=== PATIENT | male | born 1940 | race Caucasian/White ===

== ENCOUNTER 2016-07-01 20:28 | Inpatient (IN) | payer OTHER ==
[~2016-07-01] VITALS: Ht 175.3 cm; Wt 84.1 kg
[~2016-07-01 20:28] MED LIST: ACET500C12 PO; ASPEC81 PO; CARV12.52 PO; CFT250 PO; CMD6 PO; DIGO0.1267 PO; FLUO40CA8 PO; FOLI1TAB7 PO; FURO40TA3 PO; INSU100I17 SC; INSU1INJ7 SC; LISI2.5T5 PO; MECL1TAB42 PO; MULTTAB58 PO; NTRGSL4 SL; OMEG10007 PO; OMEP20CA59 PO; PROC1TAB5 PO; RNXER500 PO; VTMD1000 PO
[2016-07-01] MEDS ORDERED: SODIUM CHLORIDE 0.9% 500ML 500 ML IV STA (20:36)
[2016-07-01] MEDS ORDERED: ONDANSETRON INJ 2 MG/ML 2 ML VIAL IV STA (20:36)
[2016-07-01] MEDS ORDERED: CHOL1TAB42 PO (21:16)
[2016-07-01] MEDS ORDERED: RANO500T PO (21:16)
[2016-07-01] MEDS ORDERED: OYST500T47 PO (21:16)
[2016-07-01] MEDS ORDERED: ZINC1TAB PO (21:16)
[2016-07-01] MEDS ORDERED: MELA3TAB12 PO (21:16)
[2016-07-01] MEDS ORDERED: WARF3TAB PO (21:16)
--- NOTE | 2016-07-01 21:18 | DIAGNOSTIC IMAGING REPORT ---
SINGLE VIEW CHEST CLINICAL HISTORY: Sepsis. FINDINGS: An AP, portable, upright chest radiograph is compared to study dated 05/26/2016. No prior studies are available for comparison at the time of dictation. The patient is status post midline sternotomy and cardiac valve surgery. The heart is enlarged and there is atherosclerotic calcification of the thoracic aorta. Mild central pulmonary basilar congestion is observed. There is no airspace consolidation or large pleural effusion. No pneumothorax is seen. The skeletal structures are osteopenic. Degenerative change is noted in the thoracic spine. There are healed right-sided rib fractures. Surgical clips and coils are noted in the upper abdomen. IMPRESSION: 1. Cardiomegaly with mild central pulmonary vascular congestion. 2. No airspace consolidation or pleural effusion is identified. Electronically signed by: Jairo Jennings M.D. 07/01/2016 9:16 PM Dictated Date/Time: 07/01/2016 9:14 PM
--- NOTE | 2016-07-01 21:21 | EMERGENCY ROOM VISIT NOTE ---
History Report prepared by Jourdan: Olga Cyr Under the Supervision of: Dr. Brendan Caldera D.O. 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 The patient's states that the patient had a urine culture yesterday following a blood transfusion for low hemoglobin. She states that it came back with ketones and it was cloudy and yellow and home health came to get another sample today using a catheter and states that the nurse was unable to place the catheter. She states that the patient was more confused today and grabbing at things. The patient sates that he is nauseous but does not have any abdominal pain or an increase in leg swelling. He states that he has fallen twice in the last two day but denies any head pain. The patient's states that the patient receives peritoneal dialysis and also suffers from CHF and Atrial fibrillation and had his prostate removed. She states that the patient had a CT scan done 1 month ago with no significant findings. 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 A total of 10 systems reviewed and were otherwise negative. Past Medical & Surgical Medical Problems: (1) Afib (2) Anemia (3) Aortic stenosis (4) CAD (coronary artery disease) (5) CHF (congestive heart failure) (6) Depression (7) Dialysis patient (8) DM2 (diabetes mellitus, type 2) (9) ESRD (end stage renal disease) (10) HLD (hyperlipidemia) (11) HTN (hypertension) (12) PAD (peripheral artery disease) (13) Prostate CA (14) Toe amputation status (15) Weakness Surgical Problems: (1) H/O colonoscopy (2) H/O heart artery stent (3) H/O radical prostatectomy (4) H/O splenectomy (5) History of cataract surgery (6) History of dental surgery (7) S/P AVR (8) S/P CABG x 5 (9) S/P MVR (mitral valve repair) Family History Diabetes mellitus BROTHER FH: CAD (coronary artery disease) MOTHER BROTHER SISTER FH: lung cancer FATHER Social History Smoking Status: Never Smoker Drug Use: none Marital Status: Occupation Status: retired, disabled Current/Historical Medications Scheduled Acetazolamide (Acetazolamide Er), 250 MG PO BID Aspirin (Aspirin EC Low Dose), 81 MG PO DAILY Carvedilol (Coreg), 12.5 MG PO BID Cholecalciferol (Vitamin D), 5,000 UNITS PO DAILY Citalopram Hydrobromide (Citalopram Hydrobromide), 2 TAB PO DAILY Digoxin (Lanoxin), 0.125 MG PO 3XWK Fish Oil ([place]-3), 1 CAP PO DAILY Folic Acid (Folvite), 1 MG PO DAILY Furosemide (Lasix), 80 MG PO DAILY Insulin Glargine (Lantus), 70 UNITS SC QAM Lisinopril (Lisinopril), 2.5 MG PO HS Melatonin-Pyridoxine (Melatonin), 1 TAB PO DAILY Multiple Vitamin (Multivitamin), 1 TAB PO DAILY Omeprazole (Prilosec), 20 MG PO DAILY Oyster Shell (Calcium), 500 MG PO DAILY Ranolazine (Ranexa), 1 TAB PO BID Warfarin Sodium (Coumadin), 3 MG PO DAILY Zinc Gluconate (Zinc), 50 MG PO BID Scheduled PRN Insulin Lispro (Human) (Humalog Pen), 5 UNITS SC DIRECTED PRN for IF BSG > 150 Meclizine Hcl (Meclizine Hcl), 1 TAB PO TID PRN for Dizziness or Vertigo Nitroglycerin (Nitrostat), 0.4 MG SL UD PRN for Chest Pain Prochlorperazine Maleate (Compazine), 1 TAB PO Q6 PRN for Nausea Allergies Coded Allergies: No Known Allergies (Verified , 03/30/16) Physical Exam Vital Signs Date Time Temp Pulse Resp B/P Pulse Ox O2 Delivery O2 Flow Rate FiO2 07/01/16 23:27 80 18 107/37 100 Room Air 07/01/16 22:47 86 16 90/46 99 Room Air 07/01/16 21:53 85 18 146/64 100 Room Air 07/01/16 21:34 98 Room Air 07/01/16 20:29 36.7 89 18 105/50 99 Room Air Physical Exam GENERAL: Patient is listless, responsive to verbal stimuli but seems to go to sleep quickly when not being stimulated. EYES: The conjunctivae are clear. The pupils are round and reactive. EARS, NOSE, MOUTH AND THROAT: The nose is without any evidence of any deformity. Mucous membranes are dry tongue is midline NECK: The neck is nontender and supple. RESPIRATORY: Lung sounds are diminished at both bases but no tachypnea or respiratory distress appreciated. CARDIOVASCULAR: Regular rate and rhythm noted there no murmurs rubs or gallops normal S1 normal S2 GASTROINTESTINAL: The abdomen is soft. Bowel sounds are present in all quadrants. Abdomen is nontender MUSCULOSKELETAL/EXTREMITIES: There is no evidence of gross deformity full range of motion is noted in the hips and shoulders SKIN: There is no obvious evidence of any rash. There are no petechiae, pallor or cyanosis noted. Trace pedal edema bilaterally with right greater than left. NEUROLOGIC: Patient is oriented to person, place and situation. Strength was diminished but symmetric. Medical Decision & Procedures ER Provider Diagnostic Interpretation: X-ray results as stated below per interpretation by me and the radiologist. SINGLE VIEW CHEST CLINICAL HISTORY: Sepsis. FINDINGS: An AP, portable, upright chest radiograph is compared to study dated 05/26/2016. No prior studies are available for comparison at the time of dictation. The patient is status post midline sternotomy and cardiac valve surgery. The heart is enlarged and there is atherosclerotic calcification of the thoracic aorta. Mild central pulmonary basilar congestion is observed. There is no airspace consolidation or large pleural effusion. No pneumothorax is seen. The skeletal structures are osteopenic. Degenerative change is noted in the thoracic spine. There are healed right-sided rib fractures. Surgical clips and coils are noted in the upper abdomen. IMPRESSION: 1. Cardiomegaly with mild central pulmonary vascular congestion. 2. No airspace consolidation or pleural effusion is identified. Electronically signed by: Jairo Jennings M.D. 07/01/2016 9:16 PM Dictated Date/Time: 07/01/2016 9:[address] results as stated below per my review and radiologist interpretation. CT SCAN OF THE BRAIN WITHOUT IV CONTRAST CLINICAL HISTORY: Change in mental status COMPARISON STUDY: CT of the brain dated 05/26/2016. TECHNIQUE: Unenhanced axial CT scan of the brain is performed from the vertex to the skull base. CT DOSE: 537.48 mGy.cm FINDINGS: Brain parenchyma: There are age-related involutional changes noting mild to moderate patchy subcortical and periventricular microangiopathic change. There is no hemorrhage, mass effect, or evidence of acute territorial ischemia by CT criteria. Thompson-white matter is preserved. No extra-axial fluid collection is seen. Ventricles, sulci, cisterns: Prominent secondary to involutional change. Intracranial vasculature: There is atherosclerotic calcification of the cavernous carotid and vertebral arteries. Calvarium: Unremarkable. Sinuses and mastoids: The visualized paranasal sinuses are clear. There are postoperative changes from previous right mastoid surgery. The mastoid air cells are well pneumatized. Orbits: The bony orbits are grossly intact. There are bilateral ocular lens implants. IMPRESSION: There is no hemorrhage, mass effect, or evidence of acute territorial ischemia by CT criteria, and there has been no significant change from 05/26/2016. Electronically signed by: Jairo Jennings M.D. 07/01/2016 9:54 PM Dictated Date/Time: 07/01/2016 9:52 PM Laboratory Results 07/01/16 21:21 Red Blood Count 2.21, Mean Corpuscular Volume 102.3, Mean Corpuscular Hemoglobin 32.6, Mean Corpuscular Hemoglobin Concent 31.9, Mean Platelet Volume 9.5, Neutrophils (%) (Auto) 68.5, Lymphocytes (%) (Auto) 18.3, Monocytes (%) ( Auto) 7.8, Eosinophils (%) (Auto) 4.0, Basophils (%) (Auto) 0.5, Neutrophils # ( Auto) 8.66, Lymphocytes # (Auto) 2.31, Monocytes # (Auto) 0.98, Eosinophils # ( Auto) 0.50, Basophils # (Auto) 0.06 07/01/16 21:21 Test 07/01/16 21:20 07/01/16 21:21 07/01/16 22:30 Bedside Lactic Acid Venous 0.96 mmol/L (0.90-1.70) White Blood Count 12.62 K/uL (4.8-10.8) Red Blood Count 2.21 M/uL (4.7-6.1) Hemoglobin 7.2 g/dL (14.0-18.0) Hematocrit 22.6 % (42-52) Mean Corpuscular Volume 102.3 fL (80-100) Mean Corpuscular Hemoglobin 32.6 pg (25-34) Mean Corpuscular Hemoglobin Concent 31.9 g/dl (32-36) Platelet Count 215 K/uL (130-400) Mean Platelet Volume 9.5 fL (7.4-10.4) Neutrophils (%) (Auto) 68.5 % Lymphocytes (%) (Auto) 18.3 % Monocytes (%) (Auto) 7.8 % Eosinophils (%) (Auto) 4.0 % Basophils (%) (Auto) 0.5 % Neutrophils # (Auto) 8.66 K/uL (1.4-6.5) Lymphocytes # (Auto) 2.31 K/uL (1.2-3.4) Monocytes # (Auto) 0.98 K/uL (0.11-0.59) Eosinophils # (Auto) 0.50 K/uL (0-0.5) Basophils # (Auto) 0.06 K/uL (0-0.2) RDW Standard Deviation 57.3 fL (36.4-46.3) RDW Coefficient of Variation 15.2 % (11.5-14.5) Immature Granulocyte % (Auto) 0.9 % Immature Granulocyte # (Auto) 0.11 K/uL (0.00-0.02) Macrocytosis PRESENT Erythrocyte Sedimentation Rate 26 mm/hr (0-14) Prothrombin Time 25.4 SECONDS (9.0-12.0) Prothromb Time International Ratio 2.3 (0.9-1.1) Activated Partial Thromboplast Time 39.7 SECONDS (21.0-31.0) Partial Thromboplastin Ratio 1.5 Venous Blood pH 7.39 (7.36-7.41) Venous Blood Partial Pressure CO2 47 mmHg (38.0-50.0) Venous Blood Partial Pressure O2 41 mmHg Venous Blood HCO3 28 mmol/L Venous Blood Oxygen Saturation 72.8 % Venous Blood Base Excess 2.4 mmol/L Anion Gap 12.0 mmol/L (3-11) Est Creatinine Clear Calc Drug Dose 11.2 ml/min Estimated GFR () 10.1 Estimated GFR (Non- 8.7 BUN/Creatinine Ratio 12.6 (10-20) Calcium Level 7.5 mg/dl (8.5-10.1) Phosphorus Level 4.9 mg/dl (2.5-4.9) Magnesium Level 1.6 mg/dl (1.8-2.4) Total Bilirubin 0.2 mg/dl (0.2-1) Aspartate Amino Transf (AST/SGOT) 17 U/L (15-37) Alanine Aminotransferase (ALT/SGPT) 8 U/L (12-78) Alkaline Phosphatase 95 U/L (45-117) Ammonia 24.0 umol/L (11-32) Total Creatine Kinase 43 U/L (39-308) Creatine Kinase MB 2.1 ng/ml (0.5-3.6) Creatine Kinase MB Ratio 4.9 (0-3.0) Troponin I 0.049 ng/ml (0-0.045) C-Reactive Protein 1.20 mg/dl (0-0.29) Pro-B-Type Natriuretic Peptide > 85330 pg/ml (0-1800) Total Protein 6.6 gm/dl (6.4-8.2) Albumin 2.4 gm/dl (3.4-5.0) Globulin 4.2 gm/dl (2.5-4.0) Albumin/Globulin Ratio 0.6 (0.9-2) Lipase 90 U/L (73-393) Digoxin Level 2.0 ng/ml (0.8-2.0) Urine Color DK YELLOW Urine Appearance TURBID (CLEAR) Urine pH 6.0 (4.5-7.5) Urine Specific [place] 1.016 (1.000-1.030) Urine Protein 1+ (NEG) Urine Glucose (UA) NEG (NEG) Urine Ketones TRACE (NEG) Urine Occult Blood 2+ (NEG) Urine Nitrite NEG (NEG) Urine Bilirubin NEG (NEG) Urine Urobilinogen NEG (NEG) Urine Leukocyte Esterase LARGE (NEG) Urine WBC (Auto) >30 /hpf (0-5) Urine RBC (Auto) >30 /hpf (0-4) Urine Hyaline Casts (Auto) 1-5 /lpf (0-5) Urine Epithelial Cells (Auto) >30 /lpf (0-5) Urine Bacteria (Auto) 4+ (NEG) Laboratory results per my review. Medications Administered Medications (Trade) Dose Ordered Sig/Andrei Route Start Time Stop Time Status Last Admin Dose Admin Sodium Chloride (Nss 500ml) 500 ml @ 999 mls/hr Q31M STAT IV 07/01/16 20:36 07/01/16 21:06 DC 07/01/16 21:39 999 MLS/HR Ondansetron HCl (Zofran Inj) 4 mg NOW STAT IV 07/01/16 20:36 07/01/16 20:39 DC 07/01/16 21:39 4 MG Ceftriaxone Sodium (Rocephin Inj) 1 gm NOW STAT IV 07/01/16 23:17 07/01/16 23:18 DC 07/01/16 23:26 1 GM ECG Indication: altered mental status, weakness Rate (beats per minute): 93 Rhythm: sinus rhythm Findings: 1st degree AV block, RBBB, other (no PVC) Comparison ECG Date: May 27, 2016 Change: no significant change ED Course 2033: The patient was evaluated in room A10. A complete history and physical examination were performed. 2035: Ordered Zofran Inj 4 mg IV, NSS 500 ml @ 999 mls/hr IV 2316: Ordered Rocephin Inj 1 gm IV. 5:I discussed the case with Dr. Colby Yates. He agreed to evaluate the patient for further management and care. Medical Decision Differential diagnosis: Etiologies such as metabolic, infection, hypo/hyperglycemia, electrolyte abnormalities, cardiac sources, intracerebral event, toxicologic, neurologic, as well as others were entertained. Nursing notes reviewed. Additional history is obtained from the patient's significant other. The patient is a 76-year-old male who presented to the emergency department for an evaluation of generalized weakness. The patient had hypotension on arrival to the emergency department. He has a history of renal failure and is treated with peritoneal dialysis. The patient was reevaluated multiple times. He was also treated with IV antibiotics for presumed urinary tract infection noted on urinalysis. I reviewed the patient's previous urine cultures. I discussed the patient's laboratory and radiographic studies with him and his family members. Given the degree of symptoms the patient was having I also discussed his case with the on-call [facility] mgist group. They have agreed to evaluate the patient in the emergency department for further management and disposition. Consults Time Called: [phone] Consulting Physician: Dr. Colby Yates Returned Call: [phone] I discussed the case with Dr. Colby Yates. He agreed to evaluate the patient for further management and care. Impression Primary Impression: Weakness Additional Impressions: UTI (urinary tract infection) Chronic renal failure Anemia Scribe Attestation The scribe's documentation has been prepared under my direction and personally reviewed by me in its entirety. I confirm that the note above accurately reflects all work, treatment, procedures, and medical decision making performed by me. Departure Information Dispostion Being Evaluated By Hospitalist Referrals Letha Obregon M.D. (PCP) Problem Qualifiers
[2016-07-01 21:33] LABS: HEMATOCRIT 22.6 % (42-52); MEAN CELL VOLUME 102.3 fL (80-100); MEAN CORPUSCULAR HEMOGLOBIN 32.6 pg (25-34); MEAN CORPUSCULAR HGB CONC 31.9 g/dl (32-36); MEAN PLATELET VOLUME 9.5 fL (7.4-10.4); PLATELET COUNT 215 K/uL (130-400); RED BLOOD COUNT 2.21 M/uL (4.7-6.1); WHITE BLOOD COUNT 12.62 K/uL (4.8-10.8)
[2016-07-01 21:37] LABS: VEN BLD GAS O2 SATURATION 72.8 %; VEN BLOOD GAS BASE EXCESS 2.4 mmol/L
[2016-07-01 21:44] LABS: INR 2.3 (0.9-1.1); PARTIAL THROMBOPLASTIN RATIO 1.5; PROTHROMBIN TIME (PATIENT) 25.4 SECONDS (9.0-12.0)
--- NOTE | 2016-07-01 21:56 | DIAGNOSTIC IMAGING REPORT ---
CT SCAN OF THE BRAIN WITHOUT IV CONTRAST CLINICAL HISTORY: Change in mental status COMPARISON STUDY: CT of the brain dated 05/26/2016. TECHNIQUE: Unenhanced axial CT scan of the brain is performed from the vertex to the skull base. CT DOSE: 537.48 mGy.cm FINDINGS: Brain parenchyma: There are age-related involutional changes noting mild to moderate patchy subcortical and periventricular microangiopathic change. There is no hemorrhage, mass effect, or evidence of acute territorial ischemia by CT criteria. Thompson-white matter is preserved. No extra-axial fluid collection is seen. Ventricles, sulci, cisterns: Prominent secondary to involutional change. Intracranial vasculature: There is atherosclerotic calcification of the cavernous carotid and vertebral arteries. Calvarium: Unremarkable. Sinuses and mastoids: The visualized paranasal sinuses are clear. There are postoperative changes from previous right mastoid surgery. The mastoid air cells are well pneumatized. Orbits: The bony orbits are grossly intact. There are bilateral ocular lens implants. IMPRESSION: There is no hemorrhage, mass effect, or evidence of acute territorial ischemia by CT criteria, and there has been no significant change from 05/26/2016. Electronically signed by: Jairo Jennings M.D. 07/01/2016 9:54 PM Dictated Date/Time: 07/01/2016 9:52 PM
[2016-07-01 22:08] LABS: BASO % 0.5 %; BASO ABS # 0.06 K/uL (0-0.2); COMPLETE YES; IG% 0.9 %; LYMPH % 18.3 %; LYMPH ABS # 2.31 K/uL (1.2-3.4); MONO % 7.8 %; NEUT % 68.5 %
[2016-07-01 22:10] LABS: ALB/GLOB RATIO 0.6 (0.9-2); ALKALINE PHOSPHATASE 95 U/L (45-117); ALT/SGPT 8 U/L (12-78); AST/SGOT 17 U/L (15-37); BLOOD UREA NITROGEN 73 mg/dl (7-18); BUN/CREATININE RATIO 12.6 (10-20); CALCIUM 7.5 mg/dl (8.5-10.1); CARBON DIOXIDE 26 mmol/L (21-32); CHLORIDE 102 mmol/L (98-107); CKMB/CK RATIO 4.9 (0-3.0); GLUCOSE 67 mg/dl (70-99); MAGNESIUM 1.6 mg/dl (1.8-2.4); PHOSPHORUS 4.9 mg/dl (2.5-4.9); POTASSIUM 3.7 mmol/L (3.5-5.1); SODIUM 140 mmol/L (136-145)
[2016-07-01 23:07] LABS: URINE APPEARANCE TURBID (CLEAR); URINE BILIRUBIN NEG (NEG); URINE COLOR DK YELLOW; URINE EPITHELIAL CELL AUTO >30 /lpf (0-5); URINE NITRITE NEG (NEG); URINE SPECIFIC GRAVITY 1.016 (1.000-1.030); UROBILINOGEN NEG (NEG); ZZURINE CULT IF INDIC CATH YES
[2016-07-01 23:09] LABS: MANUAL MICROSCOPIC REQUIRED? NO; REVIEW REQ? NO
[2016-07-01] MEDS ORDERED: CEFTRIAXONE SOD INJ 1 GM ADDVIAL IV STA (23:17)
[2016-07-01] MEDS ORDERED: CITA10TA4 PO (23:51)
[2016-07-02] VITALS (14 sets, daily range): BP systolic 106–159; BP diastolic 54–80; PULSE 57–87; TEMP 36.3–36.8; O2SAT 96–100; Ht 175.3 cm; Wt 84.1 kg
[2016-07-02] MEDS ORDERED: ACETAMINOPHEN 325 MG TAB PO PRN (00:45)
[2016-07-02] MEDS ORDERED: ONDANSETRON INJ 2 MG/ML 2 ML VIAL IV PRN (00:45)
[2016-07-02] MEDS ORDERED: MECLIZINE HCL 12.5 MG TAB PO PRN (01:00)
[2016-07-02] MEDS ORDERED: INSULIN ASPART 100 UNITS/ML 3 ML PEN SC PRN (01:00)
[2016-07-02] MEDS ORDERED: PROCHLORPERAZINE MALEATE 10 MG TAB PO PRN (01:00)
[2016-07-02] MEDS ORDERED: NITROGLYCERIN 0.4 MG SL PER TAB CHARGE SL PRN (01:00)
[2016-07-02] MEDS ORDERED: MAGNESIUM CHLORIDE 64MG DELAYED REL TAB PO STA (02:09)
--- NOTE | 2016-07-02 04:19 | HISTORY & PHYSICAL EXAMINATION ---
DATE OF ADMISSION: 07/02/2016 PRIMARY CARE PHYSICIAN: Dr. Obregon. CAMPAIGN ANALYST: Dr. Chowdhury. CHIEF COMPLAINT: Change in mental status with progressive weakness and fall. HISTORY OF PRESENT COMPLAINT: He is a 76-year-old male with significant complicated past medical history including CAD s/p CABG in 2000, status post mitral and aortic valve replacement on anticoagulation, systolic heart failure, type 2 diabetes, chronic kidney disease on peritoneal dialysis, Anxiety disorder, atrial fibrillation, chronic back pain, hyperlipidemia, hypertension and vitamin D deficiency, apparently has been complaining of weakness and lethargy for the last few days. He has been falling at home about 1-2 times a day without significant injury. He was evaluated by his primary care physician on of this month and his present medicine for depression was increased. He was admitted to [facility] from May 26 and May 29 for weakness and anemia. He received blood transfusion but at that time, he was advised to go to rehab, but he refused to go. Today, he denies any chest pain, any palpitations, any nausea or vomiting. He does not have any abdominal pain, but he mentions to have producing less urine with dysuria at times. No fever, chills or rigors and he has been getting progressive weakness with recurrent falls, but no significant injuries issues. 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 PAST SURGICAL HISTORY: Significant for AV shunt in the late 2013, AV shunt in the right in 2014, alveoloplasty in October of 2008, amputation of the toes in 2010, status post percutaneous angioplasty right side that was done in August of 2014 x3, aortic valve replacement October of 2008, radical prostatectomy in 2001, cataract surgery 2012, mitral valve replacement in 2008. FAMILY HISTORY: Father did have lung cancer. Brother has diabetes. Mother had heart disorder. SOCIAL HISTORY: He is . He lives with his . He does not drink and does not smoke and he has been reasonably ambulant. ALLERGIES: NKDA. MEDICATIONS: He has been on fish oil 1 capsule daily, acetazolamide 500 mg 2 mg tablet b.i.d., aspirin 81 mg daily, Coreg 12.5 mg b.i.d., vitamin D 5000 units daily, Celexa 10 mg tablets 2 tablets daily, digoxin 0.125 three times a week, folic acid 1 mg daily, furosemide 40 mg tablets 2 tablets daily, insulin Lantus 70 units in the morning, insulin lispro as directed, lisinopril 2.5 mg at night, meclizine 25 mg t.i.d. p.r.n., melatonin 1 tablet daily 1 mg, multivitamin 1 tablet daily, Nitrostat 0.4 mg as directed, Prilosec 20 mg daily, calcium 500 mg daily, Compazine 10 mg 1 tablet p.o. q. 6 hourly p.r.n., Ranexa 500 mg tablet b.i.d., warfarin sodium 3 mg daily, and zinc 50 mg b.i.d. REVIEW OF SYSTEMS: Other system review is unremarkable. PHYSICAL EXAMINATION: GENERAL: On examination in the Emergency Room, he was not having any acute distress. His confusion is almost resolved. VITAL SIGNS: Temperature 36.7, pulse was 79, blood pressure 107/37, saturation 100% on room air. HEENT: Unremarkable. NECK: Supple. No JVD, no bruit. CHEST: Decreased breath sounds with occasional crackles at the bases. HEART: S1, S2 regular with 2/6 systolic murmur over aortic area and precordium. ABDOMEN: Soft, benign, nontender, no organomegaly. Bowel sounds present. EXTREMITIES: Negative for any edema. He does have the ulcers on the right heel that has been healing, and he goes to wound clinic for that. CENTRAL NERVOUS SYSTEM: He is alert, awake, and generally weak, but no focal neuro deficit appreciated. LABORATORY DATA: Noted today, white count is 12.62, H\T\H 7.2/22.6, platelet was 215, ESR 26. Blood gas 7.29, pCO2 of 47, pO2 of 41, saturation was 72. Sodium 140, potassium 3.7, chloride 102, carbon dioxide 26, BUN 73, creatinine 5.80. Random glucose 67. Lactic acid 0.96. Magnesium 1.6, calcium 7.5. LFTs unremarkable. CK-MB unremarkable. Troponin 0.019. BNP was more than 35,000. INR 2.3. PTT ratio 1.5. Digoxin level 2.0. UA examination showed white count more than 30, rbc's more than [address] bacteria 4+. CT of the head; no hemorrhage, mass effect, or evidence of acute territorial ischemia. Chest x-ray: Cardiomegaly with mild central pulmonary venous congestion, no consolidation. EKG was in sinus rhythm with first degree AV block, right bundle branch block with associated ST-T wave changes. IMPRESSION AND PLAN: 1. Change in mental status likely secondary to infection due to UTI. His Urine Culture on 06/27/16 grew multiple organism at his PCP's office - Started on Ceftriaxone and will continue,Bloos and Urine cultures sent. The patient will be admitted to telemetry unit and monitored in the unit. Mental status since has been improving. No evidence of any stroke in the CAT scan. He was noted to have hypoxia on admission, low blood sugar could be causing change in mental status too. 2.Anemia -HB 7.2 likely due to CKD.Has had 2 units of Blood transfusion in mid May 2016. Type and Hold 2 units and may need transfusion again if HB drops below 7.0. 3. Probable urinary tract infection. Urinalysis shows infection. Recent urine culture that was done in the doctor's office did show multiple dimitry. We will send urine for culture, and the patient is started on intravenous ceftriaxone, continue with that. 4. Status post aortic and mitral valve replacement. The patient has been on Coumadin, and no acute chest pain at this time. We will cycle cardiac enzymes to make sure there is no acute coronary syndrome and continue current medication. 5. End-stage renal disease on hemodialysis. The patient has some congestion. We will continue with peritoneal dialysis and ask for nephrology evaluation. 6.Frequent falls at home 'PT/OT evaluation.May need placement 7. Gastrointestinal prophylaxis, Protonix. 8. Hypertension and hyperlipidemia. Continue current medications. 9. Deep venous thrombosis prophylaxis with Coumadin. 10. Code status. Discussed with the and the patient. He will be full code. In my clinical judgment, the beneficiary meets criteria as per CMS for 2 midnight stay in the hospital. HEMANT
[2016-07-02] MEDS ORDERED: HEPARIN SOD 5000 UNIT/0.5 ML CARP SQ SCH (06:00)
[2016-07-02 06:31] LABS: HEMATOCRIT 22.3 % (42-52); MEAN CELL VOLUME 104.7 fL (80-100); MEAN CORPUSCULAR HEMOGLOBIN 32.9 pg (25-34); MEAN CORPUSCULAR HGB CONC 31.4 g/dl (32-36); MEAN PLATELET VOLUME 10.1 fL (7.4-10.4); PLATELET COUNT 205 K/uL (130-400); RED BLOOD COUNT 2.13 M/uL (4.7-6.1); WHITE BLOOD COUNT 11.65 K/uL (4.8-10.8)
[2016-07-02 06:47] LABS: INR 2.2 (0.9-1.1); PROTHROMBIN TIME (PATIENT) 24.2 SECONDS (9.0-12.0)
[2016-07-02] MEDS ORDERED: FUROSEMIDE INJ 40 MG in SYRINGE 0 ML IV SCH (07:00)
[2016-07-02] MEDS: RANOLAZINE 500 MG ER TAB PO SCH ×2 (07:41→21:28)
[2016-07-02] MEDS: ASPIRIN 81 MG ECTAB PO SCH (07:41)
[2016-07-02] MEDS: ZINC SULFATE 220 MG CAP PO SCH ×2 (07:42→21:28)
[2016-07-02] MEDS: MULTIVITAMIN TAB PO SCH (07:42)
[2016-07-02] MEDS: PANTOprazole SOD 40 MG TAB PO SCH (07:43)
[2016-07-02] MEDS: CALCIUM CARBONATE 1250MG TAB PO SCH (07:43)
[2016-07-02] MEDS: CHOLECALCIFEROL 1000 INTER.UNIT TAB PO SCH (07:43)
[2016-07-02] MEDS: CARVEDILOL 12.5 MG TAB PO SCH ×2 (07:43→21:25)
[2016-07-02] MEDS: CITALOPRAM 20 MG TAB PO SCH (07:44)
[2016-07-02 07:53] LABS: BUN/CREATININE RATIO 12.5 (10-20); CALCIUM 7.5 mg/dl (8.5-10.1); CKMB/CK RATIO 4.9 (0-3.0); CREATININE 5.9 mg/dl (0.60-1.40); MAGNESIUM 1.7 mg/dl (1.8-2.4); POTASSIUM 3.4 mmol/L (3.5-5.1)
[2016-07-02] MEDS ORDERED: INSULIN GLARGINE SC SCH ×2 (09:00→21:00)
[2016-07-02] MEDS ORDERED: AcetaZOLAMIDE 500 MG CAPCR PO SCH (09:00)
[2016-07-02] MEDS ORDERED: NON-FORMULARY MEDICATION (Melatonin-Pyridoxine (Melatonin) 1 TAB) PO SCH (09:00)
[2016-07-02] MEDS: AcetaZOLAMIDE 250 MG TAB PO SCH ×2 (09:04→22:04)
[2016-07-02] MEDS: FUROSEMIDE 40 MG TAB PO SCH (09:04)
[2016-07-02] MEDS ORDERED: POTASSIUM CHLORIDE 20 MEQ TABCR PO ONE (09:15)
[2016-07-02] MEDS ORDERED: PHARMACY GLYCEMIC MGMT CONSULT SCH (09:24)
[2016-07-02] MEDS ORDERED: ACET-1325 PO (09:32)
[2016-07-02] MEDS: MAGNESIUM SULFATE 1GM / D5W 1 GM in PREMIXED IN D5W 100 ML IV SCH ×2 (10:52→11:55)
--- NOTE | 2016-07-02 11:01 | NEPHROLOGY CONSULTATION ---
DATE OF CONSULTATION: 07/02/2016 DATE OF CONSULTATION: 07/02/2016. ATTENDING OF RECORD: Dr. Bowman. REASON FOR CONSULTATION: ESRD. HISTORY OF PRESENT ILLNESS: This is a 76-year-old male with significant history of mitral and aortic valve replacements, diabetes, end-stage renal disease on peritoneal dialysis, coronary artery disease status post CABG, AFib, who has had chronic depression for the past year as well as worsening falls dealing with family stressors, children are not well. The patient was having nausea, vomiting, fevers, chills several days ago, but refused to go to the Emergency Room and then started to get more confused with worsening falls and was admitted tentatively treating for urinary tract infection. The patient was also significantly anemic and hemoglobin is down to 7 this morning, currently getting 2 units of packed red blood cells. The patient though is starting to feel better. Appetite is improving and patient hoping to get better soon. REVIEW OF SYSTEMS: Positive fevers or chills at home. No fevers in the hospital. HEAD: No headaches. EYES: No blurry vision. NECK: Supple. PULMONARY: No significant shortness of breath or cough. GASTROINTESTINAL: Did have nausea, vomiting which has improved. GENERAL: Positive anorexia with appetite starting to improve. GENITOURINARY: Does still urinate minimally. PSYCHIATRIC: The patient is depressed but trying to stay positive. SKIN: No significant itching or rash. All other review of systems otherwise negative. CURRENT MEDICATIONS: Digoxin 0.125 Monday, Monday, Monday, ceftriaxone daily, lisinopril 2.5 mg at night, Coumadin 3 mg daily, magnesium 1 gram today, aspirin 81 mg daily, Coreg 12.5 p.o. b.i.d., folic acid 1 mg daily, Lasix 80 mg daily, multivitamin daily, calcium carbonate 1250 p.o. daily, vitamin D 5000 units daily, Celexa 20 mg daily, Protonix 40 mg daily, Ranexa 500 mg p.o. b.i.d., zinc 220 mg p.o. b.i.d., Diamox 250 mg p.o. b.i.d., Lasix 40 mg IV today. PAST MEDICAL HISTORY: Coronary artery disease status post CABG, mitral and aortic valve replacements on anticoagulation, type 2 diabetes, end-stage renal disease on peritoneal dialysis, anxiety/depression, atrial fibrillation, chronic back pain, hyperlipidemia, hypertension, history of prostate cancer and nodule on lung where the patient does not want aggressive workup done. PAST SURGICAL HISTORY: AV shunt, PD catheter, radical prostatectomy, mitral and artic valve replacements, amputation of toe, cataract surgery, aortic and mitral valve replacements. FAMILY HISTORY: Significant for father with lung cancer, brother with diabetes. SOCIAL HISTORY: , lives at home with . No alcohol. No drugs, no tobacco. PHYSICAL EXAMINATION: VITAL SIGNS: Temperature 36.7, pulse 76, respiratory rate 16, blood pressure 110/91, satting 98% on room air. GENERAL: Awake, alert, oriented x3, appears much more alert compared to admission EYES: No scleral icterus. HEAD, EYES, EARS, NOSE, AND THROAT: Moist mucous membranes. NECK: Supple. PULMONARY: Decreased breath sounds at the bases. CARDIAC: Regular rate and rhythm with a 2/6 systolic murmur. ABDOMEN: Bowel sounds positive, soft, nontender, positive PD catheter. EXTREMITIES: No significant clubbing, cyanosis or edema. NEUROLOGICALLY: Nonfocal. DERMATOLOGIC: Does have an ulcer on his heel that has been healing up well. LABORATORY DATA: White count is 11, H\T\H 7 and 22, platelet count is 205. Sodium is 141, potassium is 3.4, chloride is 101, bicarb is 26, BUN 74, creatinine is 5.9, glucose 62, calcium 7.5, mag is 1.7. CK is 41. Troponin 0.049 and trending down. INR is 2.2. Digoxin is 2. UA is concerning for urinary tract infection. Urine and blood cultures are pending. Chest x-ray shows cardiomegaly with mild vascular congestion. IMPRESSION AND PLAN: 1. End-stage renal disease: The patient does well on peritoneal dialysis, currently appears to have a urinary tract infection with worsening anemia. Will discuss with the dialysis nurse, but would like to temporarily switch to hemodialysis while here in the hospital, has a good working fistula. Electrolytes and volume status are stable so no indication for dialysis at this time. 2. Anemia of renal failure. Hemoglobin levels are 7 getting 2 units of blood today. Will plan on Procrit injection with the next dialysis treatment. Appreciate consultation. HEMANT
[2016-07-02] MEDS: INSULIN ASPART 100 UNITS/ML 3 ML PEN SC SCH ×3 (11:30→21:37)
--- NOTE | 2016-07-02 13:07 | Pharmacy Progress Note ---
Glycemic Control Intl Consult Date of Service Jul 02, 2016. Scope Glycemic Pharmacist consulted by Dr Hernandez on 07/02/16 for glycemic control and to write orders per [facility] inpatient glycemic control protocol Objective Weight (Kilograms): 85.000 Accuchecks BSG (last 24hrs): Test 07/01/16 21:21 07/02/16 05:09 07/02/16 05:59 07/02/16 06:48 Random Glucose 67 mg/dl (70-99) 45 mg/dl (70-99) Bedside Glucose 62 mg/dl (70-99) 73 mg/dl (70-99) Test 07/02/16 11:24 Bedside Glucose 185 mg/dl (70-99) Laboratory Data (last 24hrs) Test 07/01/16 21:21 07/02/16 05:09 Anion Gap 12.0 mmol/L 14.0 mmol/L BUN/Creatinine Ratio 12.6 12.5 Blood Urea Nitrogen 73 mg/dl 74 mg/dl Creatinine 5.80 mg/dl 5.90 mg/dl Potassium Level 3.7 mmol/L 3.4 mmol/L Sodium Level 140 mmol/L 141 mmol/L White Blood Count 12.62 K/uL 11.65 K/uL Red Blood Count 2.21 M/uL Hemoglobin 7.2 g/dL Hematocrit 22.6 % Mean Corpuscular Volume 102.3 fL Mean Corpuscular Hemoglobin 32.6 pg Mean Corpuscular Hemoglobin Concent 31.9 g/dl Platelet Count 215 K/uL Mean Platelet Volume 9.5 fL Neutrophils (%) (Auto) 68.5 % Lymphocytes (%) (Auto) 18.3 % Monocytes (%) (Auto) 7.8 % Eosinophils (%) (Auto) 4.0 % Basophils (%) (Auto) 0.5 % Neutrophils # (Auto) 8.66 K/uL Lymphocytes # (Auto) 2.31 K/uL Monocytes # (Auto) 0.98 K/uL Eosinophils # (Auto) 0.50 K/uL Basophils # (Auto) 0.06 K/uL Recent Pertinent Medications Outpatient Anti-diabetic Regimen: * Lantus 70 units SQ daily * Humalog 5 units if BSG is > 150mg/dL The patient is currently receiving: * Basal insulin: Lantus 70 units every 24 hours * Correctional Insulin: Novolog Correction per scale ACHS Goal Range: Low 110 mg/dL - High 140 mg/dL Correction Factor: 25 mg/dL/unit * Prandial insulin: Per carb ratio of 1 unit per 10 grams CHO consumed Risk Factors for Insulin Resistance: * Infection: UTI being treated with ceftriaxone IV (day #2) * Diet: Renal Assessment & Plan ASSESSMENT: * ADA & AACE recommend a goal blood sugar range 140-180 mg/dl for the majority of critically ill & non-critically ill patients. However, more stringent targets may be selected in individual cases. 07/02/16 * 76 y/o known type 2 diabetic who uses large doses of Lantus as an outpatient. He has been having more frequent falls and comes to [facility] with s/s of UTI. * A1c is difficult to interpret secondary to ESRD and peritoneal dialysis, however if it is accurate, it may indicate hypoglycemia as an outpatient ( compounding factor to falls?) * BSGs below goal range despite forgoing insulin overnight * possibly seeing residual effects of Lantus HARDENER HELPER - hold Lantus this AM, reduce dose significantly when resuming * BSG responded nicely with pre-lunch BSG 185mg/dL * resume NovoLog, however will loosen both correction factor and carb ratio as well as increase goal range * resume Lantus this evening - base new dose off of a TOTAL daily insulin of 70 units per day and a stress of 1 PLAN FOR INPATIENT GLYCEMIC CONTROL: * Lantus 20 units SQ BID * give 10 units if BSG is below 120mg/dL * NovoLog AC and HS * Correction factor 30mg/dL/unit * Carb ratio: 1 unit per 15g of CHO * Goal range: 140-180mg/dL * A1c - difficult to interpret given ESRD. * may consider re-evaluating home regimen for hypoglycemia since patient falling at home. May need decreased doses of Lantus * Please note that the plan above was derived based on current level of insulin resistance and hospital stress. These recommendations are appropriate for inpatient admission only. Plan of care upon discharge will need to be reassessed to avoid potential outpatient hypo/hyperglycemia. Thank you.
[2016-07-02] MEDS: WARFARIN SOD 3 MG TAB PO SCH (17:44)
[2016-07-02 18:57] LABS: CKMB/CK RATIO 4.4 (0-3.0)
[2016-07-02] MEDS: LISINOPRIL 2.5 MG TAB PO SCH (21:28)
[2016-07-02] MEDS ORDERED: D5W IV SCH (23:00)
[2016-07-02] MEDS ORDERED: CEFTRIAXONE 1000 MG/50 ML IV SCH (23:00)
--- NOTE | 2016-07-02 23:33 | Progress Note ---
Medicine Progress Note Date & Time of Visit: Jul 02, 2016 at 13:33. Subjective Lungs with wet crackles on the right base PD catheter site appears good Tolerating PO No increased wwheezing of breathing.thing from the hotel Objective Last 8 Hrs Date Time Temp Pulse Resp B/P Pulse Ox O2 Delivery O2 Flow Rate FiO2 07/02/16 12:59 36.5 63 18 137/78 100 07/02/16 12:17 36.7 57 20 113/67 100 07/02/16 12:00 36.7 78 18 143/72 100 07/02/16 11:49 36.4 78 20 106/54 100 Room Air 07/02/16 10:20 36.7 62 20 135/70 100 07/02/16 09:19 36.3 85 18 120/71 100 07/02/16 08:20 36.5 87 20 113/64 100 07/02/16 07:50 36.6 86 20 122/71 100 07/02/16 07:29 36.6 60 18 118/65 100 Physical Exam: GEN: WNWD, in no acute distress, alert and appropriate HEENT: NC/AT, PERRL, normal sclerae CARDIO: reg rate, S1/2 heard without m/g/r LUNGS: CTA bilaterally, no crackles, rales or wheezes, good diaphragmatic excursion ABD: soft, non-tender, non-distended, no rebound or guarding EXTREMITY: RP and DP palpable 2+ bilat, no LE swelling or edema, extremities are warm and well-perfused NEURO: CN 2-12 intact, sensation intact throughout MUSC: 5/5 strength throughout, no focal deficits SKIN: warm and dry Laboratory Results: Last 24 Hours Test 07/01/16 21:20 07/01/16 21:21 07/01/16 22:30 07/02/16 05:09 Bedside Lactic Acid Venous 0.96 mmol/L White Blood Count 12.62 K/uL 11.65 K/uL Red Blood Count 2.21 M/uL 2.13 M/uL Hemoglobin 7.2 g/dL 7.0 g/dL Hematocrit 22.6 % 22.3 % Mean Corpuscular Volume 102.3 fL 104.7 fL Mean Corpuscular Hemoglobin 32.6 pg 32.9 pg Mean Corpuscular Hemoglobin Concent 31.9 g/dl 31.4 g/dl Platelet Count 215 K/uL 205 K/uL Mean Platelet Volume 9.5 fL 10.1 fL Neutrophils (%) (Auto) 68.5 % Lymphocytes (%) (Auto) 18.3 % Monocytes (%) (Auto) 7.8 % Eosinophils (%) (Auto) 4.0 % Basophils (%) (Auto) 0.5 % Neutrophils # (Auto) 8.66 K/uL Lymphocytes # (Auto) 2.31 K/uL Monocytes # (Auto) 0.98 K/uL Eosinophils # (Auto) 0.50 K/uL Basophils # (Auto) 0.06 K/uL RDW Standard Deviation 57.3 fL 58.5 fL RDW Coefficient of Variation 15.2 % 15.1 % Immature Granulocyte % (Auto) 0.9 % Immature Granulocyte # (Auto) 0.11 K/uL Macrocytosis PRESENT Erythrocyte Sedimentation Rate 26 mm/hr Prothrombin Time 25.4 SECONDS 24.2 SECONDS Prothromb Time International Ratio 2.3 2.2 Activated Partial Thromboplast Time 39.7 SECONDS Partial Thromboplastin Ratio 1.5 Venous Blood pH 7.39 Venous Blood Partial Pressure CO2 47 mmHg Venous Blood Partial Pressure O2 41 mmHg Venous Blood HCO3 28 mmol/L Venous Blood Oxygen Saturation 72.8 % Venous Blood Base Excess 2.4 mmol/L Sodium Level 140 mmol/L 141 mmol/L Potassium Level 3.7 mmol/L 3.4 mmol/L Chloride Level 102 mmol/L 101 mmol/L Carbon Dioxide Level 26 mmol/L 26 mmol/L Anion Gap 12.0 mmol/L 14.0 mmol/L Blood Urea Nitrogen 73 mg/dl 74 mg/dl Creatinine 5.80 mg/dl 5.90 mg/dl Est Creatinine Clear Calc Drug Dose 11.2 ml/min 11.5 ml/min Estimated GFR () 10.1 9.9 Estimated GFR (Non- 8.7 8.5 BUN/Creatinine Ratio 12.6 12.5 Random Glucose 67 mg/dl 45 mg/dl Calcium Level 7.5 mg/dl 7.5 mg/dl Phosphorus Level 4.9 mg/dl Magnesium Level 1.6 mg/dl 1.7 mg/dl Total Bilirubin 0.2 mg/dl Aspartate Amino Transf (AST/SGOT) 17 U/L Alanine Aminotransferase (ALT/SGPT) 8 U/L Alkaline Phosphatase 95 U/L Ammonia 24.0 umol/L Total Creatine Kinase 43 U/L 41 U/L Creatine Kinase MB 2.1 ng/ml 2.0 ng/ml Creatine Kinase MB Ratio 4.9 4.9 Troponin I 0.049 ng/ml 0.042 ng/ml C-Reactive Protein 1.20 mg/dl Pro-B-Type Natriuretic Peptide > 32411 pg/ml Total Protein 6.6 gm/dl Albumin 2.4 gm/dl Globulin 4.2 gm/dl Albumin/Globulin Ratio 0.6 Lipase 90 U/L Digoxin Level 2.0 ng/ml Urine Color DK YELLOW Urine Appearance TURBID Urine pH 6.0 Urine Specific [place] 1.016 Urine Protein 1+ Urine Glucose (UA) NEG Urine Ketones TRACE Urine Occult Blood 2+ Urine Nitrite NEG Urine Bilirubin NEG Urine Urobilinogen NEG Urine Leukocyte Esterase LARGE Urine WBC (Auto) >30 /hpf Urine RBC (Auto) >30 /hpf Urine Hyaline Casts (Auto) 1-5 /lpf Urine Epithelial Cells (Auto) >30 /lpf Urine Bacteria (Auto) 4+ Test 07/02/16 05:59 07/02/16 06:48 07/02/16 11:24 07/02/16 13:10 Bedside Glucose 62 mg/dl 73 mg/dl 185 mg/dl Creatine Kinase MB Ratio Date/Time Source Procedure Growth Status 07/01/16 21:21 Blood Blood Culture Pending Received 07/01/16 21:05 Blood Blood Culture Pending Received 07/01/16 22:30 Urine,Catheterized Urine Culture Pending Received Assessment & Plan 76 yo M presented to the hospital and admitted for encephalopathy 2/2 UTI Metabolic Encephalopathy-resolved Acute Cystitis-improved, cont Rocephin Ambulatory dysfunction with weakness--ensure PT/OT ordered ESRD: Hold PD and do HD while in hospital although no acute indication at this time per [facility] Fall at home with ecchymosis on LUE-on warfarin, no xrays needed at this time Anemia 2/2 CKD: Getting two units now-still on last bag DMII: Holding Lantus with hypoglycemia--glycemic consult--sys he gets low blood sugar frequently at home. Needs decreased dose going home. H/o prostate Ca with lung nodule-per [facility] note, patient doesn't want this worked up. Wound on heel with known PAD-plan for upcoming balloon angio to RLE soon once out of hospital--consult wound care while here. S/p AV replacement and MV replacement-on coumadin; no acute chest pain, serial cardiac enzymes DVT proph-coumadin Full Code Lauren Hernandez DO [facility] Hospitalist Current Inpatient Medications: Current Inpatient Medications Medications (Trade) Dose Ordered Sig/Andrei Route Start Time Stop Time Status Last Admin Dose Admin Acetaminophen (Tylenol Tab) 650 mg Q4H PRN PO 07/02/16 00:45 08/01/16 00:44 Ondansetron HCl (Zofran Inj) 4 mg Q6H PRN IV 07/02/16 00:45 08/01/16 00:44 Aspirin (Ecotrin Tab) 81 mg DAILY PO 07/02/16 09:00 08/01/16 08:59 07/02/16 07:41 81 MG Carvedilol (Coreg Tab) 12.5 mg BID PO 07/02/16 09:00 08/01/16 08:59 07/02/16 07:43 12.5 MG Digoxin (Lanoxin Tab) 0.125 mg MoWeFr@1600 PO 07/04/16 16:00 08/03/16 15:59 Folic Acid (Folvite Tab) 1 mg DAILY PO 07/02/16 09:00 08/01/16 08:59 07/02/16 07:43 1 MG Furosemide (Lasix tab) 80 mg DAILY PO 07/02/16 09:00 08/01/16 08:59 07/02/16 09:04 80 MG Lisinopril (Zestril Tab) 2.5 mg HS PO 07/02/16 21:00 08/01/16 20:59 Meclizine HCl (Antivert Tab) 25 mg TID PRN PO 07/02/16 01:00 08/01/16 00:59 Multivitamins (Multivitamin Tab) 1 tab DAILY PO 07/02/16 09:00 08/01/16 08:59 07/02/16 07:42 1 TAB Nitroglycerin (Nitrostat Tab) 0.4 mg UD PRN SL 07/02/16 01:00 08/01/16 00:59 Calcium Carbonate (oS-Wilian 500 TAB) 1,250 mg DAILY PO 07/02/16 09:00 08/01/16 08:59 07/02/16 07:43 1,250 MG Prochlorperazine Maleate (Compazine Tab) 10 mg Q6 PRN PO 07/02/16 01:00 08/01/16 00:59 Warfarin Sodium (Coumadin Tab) 3 mg DAILY@1600 PO 07/02/16 16:00 08/01/16 15:59 Cholecalciferol (Vitamin D Tab) 5,000 inter.unit DAILY PO 07/02/16 09:00 08/01/16 08:59 07/02/16 07:43 5,000 INTER.UNIT Citalopram Hydrobromide (celeXA TAB) 20 mg DAILY PO 07/02/16 09:00 08/01/16 08:59 07/02/16 07:44 20 MG Pantoprazole Sodium (Protonix Tab) 40 mg QAM PO 07/02/16 09:00 08/01/16 08:59 07/02/16 07:43 40 MG Ranolazine (Ranexa ER Tab) 500 mg BID PO 07/02/16 09:00 08/01/16 08:59 07/02/16 07:41 500 MG Zinc Sulfate 220 mg 220 mg BID PO 07/02/16 09:00 08/01/16 08:59 07/02/16 07:42 220 MG Ceftriaxone Sodium (Rocephin 1000mg/ 50 ml D5W) 50 ml @ 100 mls/hr DAILY@2300 IV 07/02/16 23:00 07/05/16 23:29 Acetazolamide (Diamox Tab) 250 mg BID PO 07/02/16 09:00 08/01/16 08:59 07/02/16 09:04 250 MG Miscellaneous Information (Consult Glycemic Management Pharmacy) 1 ea UD N/A 07/02/16 09:24 08/01/16 09:23 Insulin Aspart (novoLOG ASPART) SLIDING SCALE ACHS SC 07/02/16 11:00 08/01/16 10:59 Insulin Glargine (Lantus Vial) 20 unit BID SC 07/02/16 21:00 08/01/16 20:59
[2016-07-02] MEDS: CEFTRIAXONE SOD INJ 1000 MG in DEXTROSE 5% 50ML IV SCH (23:46)
[2016-07-03] VITALS (8 sets, daily range): BP systolic 125–151; BP diastolic 75–79; PULSE 81–88; TEMP 36.3–36.7; O2SAT 97–100
[2016-07-03 02:09] LABS: CKMB/CK RATIO 4.7 (0-3.0)
[2016-07-03 08:15] LABS: HEPATITIS B AB NEG
[2016-07-03] MEDS: AcetaZOLAMIDE 250 MG TAB PO SCH ×2 (08:39→21:12)
[2016-07-03] MEDS: PANTOprazole SOD 40 MG TAB PO SCH (08:40)
[2016-07-03] MEDS: RANOLAZINE 500 MG ER TAB PO SCH ×2 (08:40→21:13)
[2016-07-03] MEDS: ASPIRIN 81 MG ECTAB PO SCH (08:40)
[2016-07-03] MEDS: CARVEDILOL 12.5 MG TAB PO SCH ×2 (08:40→21:10)
[2016-07-03] MEDS: ZINC SULFATE 220 MG CAP PO SCH ×2 (08:40→21:11)
[2016-07-03] MEDS: CITALOPRAM 20 MG TAB PO SCH (08:40)
[2016-07-03] MEDS: CALCIUM CARBONATE 1250MG TAB PO SCH (08:40)
[2016-07-03] MEDS: FUROSEMIDE 40 MG TAB PO SCH (08:41)
[2016-07-03] MEDS: CHOLECALCIFEROL 1000 INTER.UNIT TAB PO SCH (08:41)
[2016-07-03] MEDS: MULTIVITAMIN TAB PO SCH (08:42)
[2016-07-03] MEDS: INSULIN ASPART 100 UNITS/ML 3 ML PEN SC SCH ×4 (08:42→21:00)
[2016-07-03 09:31] LABS: BUN/CREATININE RATIO 13.3 (10-20); CALCIUM 7.6 mg/dl (8.5-10.1); MAGNESIUM 2.2 mg/dl (1.8-2.4); POTASSIUM 4.4 mmol/L (3.5-5.1)
[2016-07-03 09:49] LABS: MEAN CELL VOLUME 98.9 fL (80-100); MEAN CORPUSCULAR HEMOGLOBIN 32.2 pg (25-34); MEAN CORPUSCULAR HGB CONC 32.5 g/dl (32-36); MEAN PLATELET VOLUME 10.5 fL (7.4-10.4); PLATELET COUNT 202 K/uL (130-400); RED BLOOD COUNT 2.83 M/uL (4.7-6.1); WHITE BLOOD COUNT 11.56 K/uL (4.8-10.8)
--- NOTE | 2016-07-03 11:49 | Pharmacy Progress Note ---
Glycemic Control: Progress Nt Date of Service Jul 03, 2016. Scope Glycemic Pharmacist consulted by Dr Hernandez on 07/02/16 for glycemic control and to write orders per [facility] inpatient glycemic control protocol. Objective Accuchecks BSG (last 24hrs): Test 07/02/16 15:42 07/02/16 20:10 07/03/16 05:45 07/03/16 06:51 Bedside Glucose 189 mg/dl (70-99) 167 mg/dl (70-99) 67 mg/dl (70-99) Random Glucose 77 mg/dl (70-99) Test 07/03/16 07:26 07/03/16 11:13 Bedside Glucose 78 mg/dl (70-99) 143 mg/dl (70-99) Laboratory Data (last 24hrs) Test 07/03/16 05:45 Anion Gap 11.0 mmol/L BUN/Creatinine Ratio 13.3 Blood Urea Nitrogen 80 mg/dl Creatinine 6.00 mg/dl Potassium Level 4.4 mmol/L Sodium Level 140 mmol/L White Blood Count 11.56 K/uL Recent Pertinent Medications Outpatient Anti-diabetic Regimen: * Lantus 70 units SQ daily * Humalog 5 units if BSG is > 150mg/dL The patient is currently receiving: * Basal insulin: Lantus 20 units SQ BID - give 1/2 dose if BSG is below 120mg/dL * Correctional Insulin: NovoLog Correction per scale AC/HS Goal Range: Low 140 mg/dL - High 180 mg/dL Correction Factor: 30 mg/dL/unit * Prandial insulin: Per carb ratio of 1 unit per 15 grams CHO consumed Risk Factors for Insulin Resistance: * Infection: UTI being treated with ceftriaxone IV (day #3) * Diet: Renal Assessment & Plan ASSESSMENT: * ADA & AACE recommend a goal blood sugar range 140-180 mg/dl for the majority of critically ill & non-critically ill patients. However, more stringent targets may be selected in individual cases. 07/02/16 * 76 y/o known type 2 diabetic who uses large doses of Lantus as an outpatient. He has been having more frequent falls and comes to [facility] with s/s of UTI. * A1c is difficult to interpret secondary to ESRD and peritoneal dialysis, however if it is accurate, it may indicate hypoglycemia as an outpatient ( compounding factor to falls?) * BSGs below goal range despite forgoing insulin overnight * possibly seeing residual effects of Lantus HUNTER GUIDE - hold Lantus this AM, reduce dose significantly when resuming * BSG responded nicely with pre-lunch BSG 185mg/dL * resume NovoLog, however will loosen both correction factor and carb ratio as well as increase goal range * resume Lantus this evening - base new dose off of a TOTAL daily insulin of 70 units per day and a stress of 1 07/03/16 * BSGs above 180 mg/dL with lunch and supper on 07/02, thus low dose Lantus was added back to prevent further hypoglycemia * After one dose of Lantus 20 units last PM, BSGs 67mg/dL this AM with POC Accu -check - will further hold Lantus at this time * If having hypoglycemia as an outpatient, may have depleted glycogen stores which will predispose Mr Grant to having hypoglycemia. * Pre-lunch BSG today 143mg/dL - within range, no change to NovoLog parameters PLAN FOR INPATIENT GLYCEMIC CONTROL: * Hold Lantus at this time * consider resuming (reduced dose Lantus) when BSGs >180 mg/dL x2 and/or Fasting BSG > 100mg/dL * NovoLog AC and HS * Correction factor 30mg/dL/unit * Carb ratio: 1 unit per 15g of CHO * Goal range: 140-180mg/dL * A1c - difficult to interpret given ESRD. * may consider re-evaluating home regimen for hypoglycemia since patient falling at home. May need decreased doses of Lantus * Please note that the plan above was derived based on current level of insulin resistance and hospital stress. These recommendations are appropriate for inpatient admission only. Plan of care upon discharge will need to be reassessed to avoid potential outpatient hypo/hyperglycemia. Thank you.
--- NOTE | 2016-07-03 12:02 | Nephrology Progress Note ---
Nephrology Progress Note Date of Service: Jul 03, 2016. Subjective 76 yo male with esrd on pd who presented witih confusion and falls and found to have a uti. clinically improving. also was anemic and required 2 units of prbcs. pt doing well but admits that he is still very weak. Objective Date Time Temp Pulse Resp B/P Pulse Ox O2 Delivery O2 Flow Rate FiO2 07/03/16 11:16 36.7 86 20 125/79 98 Room Air 07/03/16 10:55 85 98 07/03/16 07:03 36.5 82 18 151/77 98 Room Air 07/03/16 04:00 Room Air 07/03/16 03:47 36.6 81 18 145/77 99 07/03/16 00:00 Room Air 07/02/16 23:52 36.8 84 18 145/80 100 07/02/16 20:00 Room Air 07/02/16 19:30 36.5 81 20 124/72 96 Room Air 07/02/16 16:00 Room Air 07/02/16 15:03 36.8 70 20 135/70 99 07/02/16 14:00 36.6 82 18 159/76 100 07/02/16 12:59 36.5 63 18 137/78 100 07/02/16 12:17 36.7 57 20 113/67 100 07/02/16 12:00 Room Air 07/02/16 12:00 36.7 78 18 143/72 100 Physical Exam: General-aaox3 Eyes-no scleral icterus ENT-mmm Neck-supple Lungs-decreased at bases Heart-rrr Abdomen-bs+ s/nt/nd Extremities-no edema Neuro-nonfocal Current Inpatient Medications Medications (Trade) Dose Ordered Sig/Andrei Route Start Time Stop Time Status Last Admin Dose Admin Acetaminophen (Tylenol Tab) 650 mg Q4H PRN PO 07/02/16 00:45 08/01/16 00:44 Ondansetron HCl (Zofran Inj) 4 mg Q6H PRN IV 07/02/16 00:45 08/01/16 00:44 Aspirin (Ecotrin Tab) 81 mg DAILY PO 07/02/16 09:00 08/01/16 08:59 07/03/16 08:40 81 MG Carvedilol (Coreg Tab) 12.5 mg BID PO 07/02/16 09:00 08/01/16 08:59 07/03/16 08:40 12.5 MG Digoxin (Lanoxin Tab) 0.125 mg MoWeFr@1600 PO 07/04/16 16:00 08/03/16 15:59 Folic Acid (Folvite Tab) 1 mg DAILY PO 07/02/16 09:00 08/01/16 08:59 07/03/16 08:41 1 MG Furosemide (Lasix tab) 80 mg DAILY PO 07/02/16 09:00 08/01/16 08:59 07/03/16 08:41 80 MG Lisinopril (Zestril Tab) 2.5 mg HS PO 07/02/16 21:00 08/01/16 20:59 07/02/16 21:28 2.5 MG Meclizine HCl (Antivert Tab) 25 mg TID PRN PO 07/02/16 01:00 08/01/16 00:59 Multivitamins (Multivitamin Tab) 1 tab DAILY PO 07/02/16 09:00 08/01/16 08:59 07/03/16 08:42 1 TAB Nitroglycerin (Nitrostat Tab) 0.4 mg UD PRN SL 07/02/16 01:00 08/01/16 00:59 Calcium Carbonate (oS-Wilian 500 TAB) 1,250 mg DAILY PO 07/02/16 09:00 08/01/16 08:59 07/03/16 08:40 1,250 MG Prochlorperazine Maleate (Compazine Tab) 10 mg Q6 PRN PO 07/02/16 01:00 08/01/16 00:59 Warfarin Sodium (Coumadin Tab) 3 mg DAILY@1600 PO 07/02/16 16:00 08/01/16 15:59 07/02/16 17:44 3 MG Cholecalciferol (Vitamin D Tab) 5,000 inter.unit DAILY PO 07/02/16 09:00 08/01/16 08:59 07/03/16 08:41 5,000 INTER.UNIT Citalopram Hydrobromide (celeXA TAB) 20 mg DAILY PO 07/02/16 09:00 08/01/16 08:59 07/03/16 08:40 20 MG Pantoprazole Sodium (Protonix Tab) 40 mg QAM PO 07/02/16 09:00 08/01/16 08:59 07/03/16 08:40 40 MG Ranolazine (Ranexa ER Tab) 500 mg BID PO 07/02/16 09:00 08/01/16 08:59 07/03/16 08:40 500 MG Zinc Sulfate (Zinc Sulfate Cap) 220 mg BID PO 07/02/16 09:00 08/01/16 08:59 07/03/16 08:40 220 MG Acetazolamide (Diamox Tab) 250 mg BID PO 07/02/16 09:00 08/01/16 08:59 07/03/16 08:39 250 MG Miscellaneous Information (Consult Glycemic Management Pharmacy) 1 ea UD N/A 07/02/16 09:24 08/01/16 09:23 Insulin Aspart SLIDING SCALE ACHS SC 07/02/16 11:00 08/01/16 10:59 07/02/16 17:46 2 UNITS Ceftriaxone Sodium/Dextrose (Rocephin Inj/ Dextrose Add-[place] 50ML) 50 ml @ 100 mls/hr DAILY@2300 IV 07/02/16 23:00 07/05/16 23:59 07/02/16 23:46 100 MLS/HR Last 24 Hours Test 07/02/16 15:42 07/02/16 18:10 07/02/16 20:10 07/03/16 01:25 Bedside Glucose 189 mg/dl 167 mg/dl Total Creatine Kinase 45 U/L 43 U/L Creatine Kinase MB 2.0 ng/ml 2.0 ng/ml Creatine Kinase MB Ratio 4.4 4.7 Troponin I 0.037 ng/ml 0.048 ng/ml Test 07/03/16 05:45 07/03/16 06:51 07/03/16 07:26 07/03/16 11:13 White Blood Count 11.56 K/uL Red Blood Count 2.83 M/uL Hemoglobin 9.1 g/dL Hematocrit 28.0 % Mean Corpuscular Volume 98.9 fL Mean Corpuscular Hemoglobin 32.2 pg Mean Corpuscular Hemoglobin Concent 32.5 g/dl RDW Standard Deviation 59.4 fL RDW Coefficient of Variation 16.3 % Platelet Count 202 K/uL Mean Platelet Volume 10.5 fL Sodium Level 140 mmol/L Potassium Level 4.4 mmol/L Chloride Level 105 mmol/L Carbon Dioxide Level 24 mmol/L Anion Gap 11.0 mmol/L Blood Urea Nitrogen 80 mg/dl Creatinine 6.00 mg/dl Est Creatinine Clear Calc Drug Dose 11.4 ml/min Estimated GFR () 9.7 Estimated GFR (Non- 8.3 BUN/Creatinine Ratio 13.3 Random Glucose 77 mg/dl Calcium Level 7.6 mg/dl Magnesium Level 2.2 mg/dl Hepatitis B Surface Antigen NEG Hepatitis B Surface Antibody NEG Bedside Glucose 67 mg/dl 78 mg/dl 143 mg/dl Assessment & Plan ESRD-temporarily switching to hemodialysis while inpatient. will plan on dialysis tomorrow. pd on hold. no indication for dialysis today. Anemia of renal failure-do not feel he is actively bleeding. likely with procrit resistance in setting of infection. will redose again tomorrow.
--- NOTE | 2016-07-03 12:28 | Progress Note ---
Medicine Progress Note Date & Time of Visit: Jul 03, 2016 at 12:21. Subjective Feels improved today Some persistent dysuria Denies fevers and chills Tolerating PO Afebile overnight Good response to blood given yesterday Per Nephro will plan for HS in am. Objective Last 8 Hrs Date Time Temp Pulse Resp B/P Pulse Ox O2 Delivery O2 Flow Rate FiO2 07/03/16 11:16 36.7 86 20 125/79 98 Room Air 07/03/16 10:55 85 98 07/03/16 07:03 36.5 82 18 151/77 98 Room Air Physical Exam: GEN: WNWD, in no acute distress, alert and appropriate HEENT: NC/AT,normal sclerae CARDIO: reg rate, S1/2 heard, 3/6 JACEK at LSB LUNGS: CTA bilaterally, no crackles, rales or wheezes, good diaphragmatic excursion ABD: soft, non-tender, non-distended, no rebound or guarding EXTREMITY: RP and DP palpable 2+ bilat, no LE swelling or edema, extremities are warm and well-perfused NEURO: CN 2-12 intact, sensation intact throughout MUSC: 5/5 strength throughout, no focal deficits SKIN: warm and dry Laboratory Results: Last 24 Hours Test 07/02/16 15:42 07/02/16 18:10 07/02/16 20:10 07/03/16 01:25 Bedside Glucose 189 mg/dl 167 mg/dl Total Creatine Kinase 45 U/L 43 U/L Creatine Kinase MB 2.0 ng/ml 2.0 ng/ml Creatine Kinase MB Ratio 4.4 4.7 Troponin I 0.037 ng/ml 0.048 ng/ml Test 07/03/16 05:45 07/03/16 06:51 07/03/16 07:26 07/03/16 11:13 White Blood Count 11.56 K/uL Red Blood Count 2.83 M/uL Hemoglobin 9.1 g/dL Hematocrit 28.0 % Mean Corpuscular Volume 98.9 fL Mean Corpuscular Hemoglobin 32.2 pg Mean Corpuscular Hemoglobin Concent 32.5 g/dl RDW Standard Deviation 59.4 fL RDW Coefficient of Variation 16.3 % Platelet Count 202 K/uL Mean Platelet Volume 10.5 fL Sodium Level 140 mmol/L Potassium Level 4.4 mmol/L Chloride Level 105 mmol/L Carbon Dioxide Level 24 mmol/L Anion Gap 11.0 mmol/L Blood Urea Nitrogen 80 mg/dl Creatinine 6.00 mg/dl Est Creatinine Clear Calc Drug Dose 11.4 ml/min Estimated GFR () 9.7 Estimated GFR (Non- 8.3 BUN/Creatinine Ratio 13.3 Random Glucose 77 mg/dl Calcium Level 7.6 mg/dl Magnesium Level 2.2 mg/dl Hepatitis B Surface Antigen NEG Hepatitis B Surface Antibody NEG Bedside Glucose 67 mg/dl 78 mg/dl 143 mg/dl Assessment & Plan 76 yo M presented to the hospital and admitted for encephalopathy 2/2 UTI Metabolic Encephalopathy-resolved Acute Cystitis-improved, cont Rocephin until UCx return Ambulatory dysfunction with weakness--PT/OT to evaluate ESRD: Hold PD and do HD while in hospital; plan for HD in am. Fall at home with ecchymosis on LUE-on warfarin, no xrays needed at this time- hypoglycemia may be contributing to falls and confusion at home? DMII: Holding Lantus with hypoglycemia--glycemic consult--sys he gets low blood sugar frequently at home. Needs decreased dose going home. Adjusted Lantus and persistent hypoglycemia this am. Apprec pharmacy recs/assistance with management. Anemia 2/2 CKD: s/p 2U pRBCs on 07/02 with appropriate response H/o prostate Ca with lung nodule-per Oncu note, patient doesn't want this worked up. Wound on heel with known PAD-plan for upcoming balloon angio to RLE soon once out of hospital--consult wound care while here. 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 INR therapeutic, cont at current dose. DVT proph-coumadin Full Code Lauren Hernandez DO [facility] Hospitalist Consultants: Nephro Current Inpatient Medications: Current Inpatient Medications Medications (Trade) Dose Ordered Sig/Andrei Route Start Time Stop Time Status Last Admin Dose Admin Acetaminophen (Tylenol Tab) 650 mg Q4H PRN PO 07/02/16 00:45 08/01/16 00:44 Ondansetron HCl (Zofran Inj) 4 mg Q6H PRN IV 07/02/16 00:45 08/01/16 00:44 Aspirin (Ecotrin Tab) 81 mg DAILY PO 07/02/16 09:00 08/01/16 08:59 07/03/16 08:40 81 MG Carvedilol (Coreg Tab) 12.5 mg BID PO 07/02/16 09:00 08/01/16 08:59 07/03/16 08:40 12.5 MG Digoxin (Lanoxin Tab) 0.125 mg MoWeFr@1600 PO 07/04/16 16:00 08/03/16 15:59 Folic Acid (Folvite Tab) 1 mg DAILY PO 07/02/16 09:00 08/01/16 08:59 07/03/16 08:41 1 MG Furosemide (Lasix tab) 80 mg DAILY PO 07/02/16 09:00 08/01/16 08:59 07/03/16 08:41 80 MG Lisinopril (Zestril Tab) 2.5 mg HS PO 07/02/16 21:00 08/01/16 20:59 07/02/16 21:28 2.5 MG Meclizine HCl (Antivert Tab) 25 mg TID PRN PO 07/02/16 01:00 08/01/16 00:59 Multivitamins (Multivitamin Tab) 1 tab DAILY PO 07/02/16 09:00 08/01/16 08:59 07/03/16 08:42 1 TAB Nitroglycerin (Nitrostat Tab) 0.4 mg UD PRN SL 07/02/16 01:00 08/01/16 00:59 Calcium Carbonate (oS-Wilian 500 TAB) 1,250 mg DAILY PO 07/02/16 09:00 08/01/16 08:59 07/03/16 08:40 1,250 MG Prochlorperazine Maleate (Compazine Tab) 10 mg Q6 PRN PO 07/02/16 01:00 08/01/16 00:59 Warfarin Sodium (Coumadin Tab) 3 mg DAILY@1600 PO 07/02/16 16:00 08/01/16 15:59 07/02/16 17:44 3 MG Cholecalciferol (Vitamin D Tab) 5,000 inter.unit DAILY PO 07/02/16 09:00 08/01/16 08:59 07/03/16 08:41 5,000 INTER.UNIT Citalopram Hydrobromide (celeXA TAB) 20 mg DAILY PO 07/02/16 09:00 08/01/16 08:59 07/03/16 08:40 20 MG Pantoprazole Sodium (Protonix Tab) 40 mg QAM PO 07/02/16 09:00 08/01/16 08:59 07/03/16 08:40 40 MG Ranolazine (Ranexa ER Tab) 500 mg BID PO 07/02/16 09:00 08/01/16 08:59 07/03/16 08:40 500 MG Zinc Sulfate (Zinc Sulfate Cap) 220 mg BID PO 07/02/16 09:00 08/01/16 08:59 07/03/16 08:40 220 MG Acetazolamide (Diamox Tab) 250 mg BID PO 07/02/16 09:00 08/01/16 08:59 07/03/16 08:39 250 MG Miscellaneous Information (Consult Glycemic Management Pharmacy) 1 ea UD N/A 07/02/16 09:24 08/01/16 09:23 Insulin Aspart SLIDING SCALE ACHS SC 07/02/16 11:00 08/01/16 10:59 07/02/16 17:46 2 UNITS Ceftriaxone Sodium/Dextrose (Rocephin Inj/ Dextrose Add-[place] 50ML) 50 ml @ 100 mls/hr DAILY@2300 IV 07/02/16 23:00 07/05/16 23:59 07/02/16 23:46 100 MLS/HR
[2016-07-03] MEDS: WARFARIN SOD 3 MG TAB PO SCH (17:43)
[2016-07-03] MEDS: LISINOPRIL 2.5 MG TAB PO SCH (21:12)
[2016-07-03] MEDS: CEFTRIAXONE SOD INJ 1000 MG in DEXTROSE 5% 50ML IV SCH (23:22)
[2016-07-04] VITALS (25 sets, daily range): BP systolic 117–169; BP diastolic 67–94; PULSE 84–97; TEMP 36.4–37.4; O2SAT 97–100
[2016-07-04 06:58] LABS: MEAN CELL VOLUME 99.3 fL (80-100); MEAN CORPUSCULAR HEMOGLOBIN 31.8 pg (25-34); MEAN CORPUSCULAR HGB CONC 32.1 g/dl (32-36); PLATELET COUNT 211 K/uL (130-400); RED BLOOD COUNT 2.92 M/uL (4.7-6.1)
[2016-07-04] MEDS: INSULIN ASPART 100 UNITS/ML 3 ML PEN SC SCH ×4 (07:00→22:53)
[2016-07-04] MEDS ORDERED: EPOETIN ALFA 10,000 UNITS/ML VIAL IV. SCH (07:15)
--- NOTE | 2016-07-04 07:36 | Nephrology Progress Note ---
Nephrology Progress Note Date of Service: Jul 04, 2016. Subjective 76 yo male with esrd on pd who presented witih confusion and falls and found to have a uti. continues to improve. pt was anemic and required 2 units of prbcs. awoke him from sleep and the first minute while he was reorienting himself-i believe he was hallucinating. however once oriented and fully awake, appeared much more himself. pt urinating better now. eating well. Objective Date Time Temp Pulse Resp B/P Pulse Ox O2 Delivery O2 Flow Rate FiO2 07/04/16 04:00 100 Room Air 07/04/16 03:11 36.7 84 18 158/70 100 07/04/16 00:01 97 Room Air 07/03/16 23:25 36.3 88 20 149/75 97 Room Air 07/03/16 20:00 99 Room Air 07/03/16 19:31 36.6 85 20 145/78 99 Room Air 07/03/16 16:05 Room Air 07/03/16 15:58 36.5 82 20 130/76 100 Room Air 07/03/16 12:00 Room Air 07/03/16 11:16 36.7 86 20 125/79 98 Room Air 07/03/16 10:55 85 98 07/03/16 08:00 Room Air Physical Exam: General-aaox3 Eyes-no scleral icterus ENT-mmm Neck-supple Lungs-cta Heart-regular Abdomen-bs+ s/nt/nd, +pd catheter Extremities-no edema Neuro-nonfocal Current Inpatient Medications Medications (Trade) Dose Ordered Sig/Andrei Route Start Time Stop Time Status Last Admin Dose Admin Acetaminophen (Tylenol Tab) 650 mg Q4H PRN PO 07/02/16 00:45 08/01/16 00:44 Ondansetron HCl (Zofran Inj) 4 mg Q6H PRN IV 07/02/16 00:45 08/01/16 00:44 Aspirin (Ecotrin Tab) 81 mg DAILY PO 07/02/16 09:00 08/01/16 08:59 07/03/16 08:40 81 MG Carvedilol (Coreg Tab) 12.5 mg BID PO 07/02/16 09:00 08/01/16 08:59 07/03/16 21:10 12.5 MG Digoxin (Lanoxin Tab) 0.125 mg MoWeFr@1600 PO 07/04/16 16:00 08/03/16 15:59 Folic Acid (Folvite Tab) 1 mg DAILY PO 07/02/16 09:00 08/01/16 08:59 07/03/16 08:41 1 MG Furosemide (Lasix tab) 80 mg DAILY PO 07/02/16 09:00 08/01/16 08:59 07/03/16 08:41 80 MG Lisinopril (Zestril Tab) 2.5 mg HS PO 07/02/16 21:00 08/01/16 20:59 07/03/16 21:12 2.5 MG Meclizine HCl (Antivert Tab) 25 mg TID PRN PO 07/02/16 01:00 08/01/16 00:59 Multivitamins (Multivitamin Tab) 1 tab DAILY PO 07/02/16 09:00 08/01/16 08:59 07/03/16 08:42 1 TAB Nitroglycerin (Nitrostat Tab) 0.4 mg UD PRN SL 07/02/16 01:00 08/01/16 00:59 Calcium Carbonate (oS-Wilian 500 TAB) 1,250 mg DAILY PO 07/02/16 09:00 08/01/16 08:59 07/03/16 08:40 1,250 MG Prochlorperazine Maleate (Compazine Tab) 10 mg Q6 PRN PO 07/02/16 01:00 08/01/16 00:59 Warfarin Sodium (Coumadin Tab) 3 mg DAILY@1600 PO 07/02/16 16:00 08/01/16 15:59 07/03/16 17:43 3 MG Cholecalciferol (Vitamin D Tab) 5,000 inter.unit DAILY PO 07/02/16 09:00 08/01/16 08:59 07/03/16 08:41 5,000 INTER.UNIT Citalopram Hydrobromide (celeXA TAB) 20 mg DAILY PO 07/02/16 09:00 08/01/16 08:59 07/03/16 08:40 20 MG Pantoprazole Sodium (Protonix Tab) 40 mg QAM PO 07/02/16 09:00 08/01/16 08:59 07/03/16 08:40 40 MG Ranolazine (Ranexa ER Tab) 500 mg BID PO 07/02/16 09:00 08/01/16 08:59 07/03/16 21:13 500 MG Zinc Sulfate (Zinc Sulfate Cap) 220 mg BID PO 07/02/16 09:00 08/01/16 08:59 07/03/16 21:11 220 MG Acetazolamide (Diamox Tab) 250 mg BID PO 07/02/16 09:00 08/01/16 08:59 07/03/16 21:12 250 MG Miscellaneous Information (Consult Glycemic Management Pharmacy) 1 ea UD N/A 07/02/16 09:24 08/01/16 09:23 Insulin Aspart SLIDING SCALE ACHS SC 07/02/16 11:00 08/01/16 10:59 07/03/16 12:43 2 UNITS Ceftriaxone Sodium/Dextrose (Rocephin Inj/ Dextrose Add-[place] 50ML) 50 ml @ 100 mls/hr DAILY@2300 IV 07/02/16 23:00 07/05/16 23:59 07/03/16 23:22 100 MLS/HR Epoetin Ever (Procrit Inj) 10,000 units TODAY@0715 IV. 07/04/16 07:15 07/04/16 18:00 Last 24 Hours Test 07/03/16 11:13 07/03/16 16:07 07/03/16 19:55 07/04/16 02:05 Bedside Glucose 143 mg/dl 93 mg/dl 147 mg/dl 167 mg/dl Test 07/04/16 06:11 White Blood Count 15.30 K/uL Red Blood Count 2.92 M/uL Hemoglobin 9.3 g/dL Hematocrit 29.0 % Mean Corpuscular Volume 99.3 fL Mean Corpuscular Hemoglobin 31.8 pg Mean Corpuscular Hemoglobin Concent 32.1 g/dl RDW Standard Deviation 58.0 fL RDW Coefficient of Variation 16.0 % Platelet Count 211 K/uL Mean Platelet Volume 10.0 fL Assessment & Plan ESRD-temporarily switching to hemodialysis while inpatient. for dialysis today , 2k bath. one liter uf. volume status appears good to me. Anemia of renal failure-do not feel he is actively bleeding. likely with procrit resistance in setting of infection. giving dose of procrit today on dialysis.
[2016-07-04 07:52] LABS: BUN/CREATININE RATIO 13.8 (10-20); CREATININE 6.2 mg/dl (0.60-1.40); MAGNESIUM 2.1 mg/dl (1.8-2.4); POTASSIUM 4.6 mmol/L (3.5-5.1)
[2016-07-04] MEDS: ASPIRIN 81 MG ECTAB PO SCH (13:30)
[2016-07-04] MEDS: RANOLAZINE 500 MG ER TAB PO SCH ×2 (13:30→19:54)
[2016-07-04] MEDS: PANTOprazole SOD 40 MG TAB PO SCH (13:30)
[2016-07-04] MEDS: CITALOPRAM 20 MG TAB PO SCH (13:30)
[2016-07-04] MEDS: CHOLECALCIFEROL 1000 INTER.UNIT TAB PO SCH (14:00)
[2016-07-04] MEDS: CALCIUM CARBONATE 1250MG TAB PO SCH (14:00)
[2016-07-04] MEDS: ZINC SULFATE 220 MG CAP PO SCH ×2 (14:00→19:53)
[2016-07-04] MEDS: MULTIVITAMIN TAB PO SCH (14:00)
--- NOTE | 2016-07-04 16:27 | Progress Note ---
Medicine Progress Note Date & Time of Visit: Jul 04, 2016 at 14:11. Subjective Pt is A&O to person and place today Just returned from HD-has not had this in two years--normally on PD, and he appears slightly confused per who is at bedside The patient has no current complaints, specifically denying urinary pain, flank or pelvic pain, chest pain, shortness of breath, fevers or chills. He reports that he is making urine overnight. PT/OT to come for updated evaluation of his abilities to decide whether he goes to home or to rehab. Objective Last 8 Hrs Date Time Temp Pulse Resp B/P Pulse Ox O2 Delivery O2 Flow Rate FiO2 07/04/16 13:08 36.9 94 20 153/80 99 Room Air 07/04/16 13:00 36.4 94 131/78 07/04/16 12:20 97 128/74 07/04/16 12:15 97 118/72 07/04/16 12:00 97 128/75 07/04/16 11:45 96 122/73 07/04/16 11:30 95 127/78 07/04/16 11:15 96 137/77 07/04/16 11:00 96 135/91 07/04/16 10:45 96 137/83 07/04/16 10:30 94 169/94 07/04/16 10:15 95 147/80 07/04/16 10:00 94 138/75 07/04/16 09:45 93 139/78 07/04/16 09:30 91 153/85 07/04/16 09:19 88 150/81 07/04/16 09:15 36.9 89 146/80 07/04/16 08:00 Room Air 07/04/16 07:54 37.0 86 20 155/83 100 Room Air Physical Exam: GEN: WNWD, in no acute distress, alert and oriented to self and place. Following instructions HEENT: NC/AT, normal sclerae CARDIO: reg rate, S1/2 heard, 3/6 JACEK at LSB LUNGS: CTA bilaterally, no crackles, rales or wheezes, good diaphragmatic excursion ABD: soft, non-tender, non-distended, no rebound or guarding EXTREMITY: RP and DP palpable 2+ bilat, no LE swelling or edema, extremities are warm and well-perfused NEURO: CN 2-12 grossly intact, sensation intact throughout MUSC: no gross focal deficits, generalized deconditioning was noted. SKIN: warm and dry Laboratory Results: Last 24 Hours Test 07/03/16 16:07 07/03/16 19:55 07/04/16 02:05 07/04/16 06:11 Bedside Glucose 93 mg/dl 147 mg/dl 167 mg/dl White Blood Count 15.30 K/uL Red Blood Count 2.92 M/uL Hemoglobin 9.3 g/dL Hematocrit 29.0 % Mean Corpuscular Volume 99.3 fL Mean Corpuscular Hemoglobin 31.8 pg Mean Corpuscular Hemoglobin Concent 32.1 g/dl RDW Standard Deviation 58.0 fL RDW Coefficient of Variation 16.0 % Platelet Count 211 K/uL Mean Platelet Volume 10.0 fL Sodium Level 141 mmol/L Potassium Level 4.6 mmol/L Chloride Level 106 mmol/L Carbon Dioxide Level 22 mmol/L Anion Gap 13.0 mmol/L Blood Urea Nitrogen 85 mg/dl Creatinine 6.20 mg/dl Est Creatinine Clear Calc Drug Dose 11.1 ml/min Estimated GFR () 9.3 Estimated GFR (Non- 8.0 BUN/Creatinine Ratio 13.8 Random Glucose 129 mg/dl Calcium Level 8.0 mg/dl Magnesium Level 2.1 mg/dl Test 07/04/16 08:10 07/04/16 09:10 07/04/16 13:07 Bedside Glucose 131 mg/dl 98 mg/dl Assessment & Plan 76 yo M presented to the hospital and admitted for encephalopathy 2/2 UTI Metabolic Encephalopathy-resolved Acute Cystitis-improved, Rocephin switched to Omnicef PO on 07/04. Ambulatory dysfunction with weakness--PT/OT to evaluate; initially recommended rehab ESRD: Hold PD and do HD while in hospital; HD today, Nephro following. Fall at home with ecchymosis on LUE-on warfarin, no xrays needed at this time- hypoglycemia may be contributing to falls and confusion at home? DMII: Pharmacy managing-appreciate recs--hypoglycemia in am is improved. This was likely contributing to his falls at home as he mentioned to me he does have low sugars frequently and has to take juice or some sugar. Insulin doseage should be decreased accordingly at discharge. Anemia 2/2 CKD: s/p 2U pRBCs on 07/02 with appropriate response; Procrit given prior to HD today H/o prostate Ca with lung nodule-per Oncu note, patient doesn't want this worked up. Wound on heel with known PAD-plan for upcoming balloon angio to RLE soon once out of hospital--consult wound care while here. 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 INR therapeutic, cont at current dose. DVT proph-coumadin Full Code DO [facility] Hospital[facility] Consultants: Nephro Current Inpatient Medications: Current Inpatient Medications Medications (Trade) Dose Ordered Sig/Andrei Route Start Time Stop Time Status Last Admin Dose Admin Acetaminophen (Tylenol Tab) 650 mg Q4H PRN PO 07/02/16 00:45 08/01/16 00:44 Ondansetron HCl (Zofran Inj) 4 mg Q6H PRN IV 07/02/16 00:45 08/01/16 00:44 Aspirin (Ecotrin Tab) 81 mg DAILY PO 07/02/16 09:00 08/01/16 08:59 07/03/16 08:40 81 MG Carvedilol (Coreg Tab) 12.5 mg BID PO 07/02/16 09:00 08/01/16 08:59 07/03/16 21:10 12.5 MG Digoxin (Lanoxin Tab) 0.125 mg MoWeFr@1600 PO 07/04/16 16:00 08/03/16 15:59 Folic Acid (Folvite Tab) 1 mg DAILY PO 07/02/16 09:00 08/01/16 08:59 07/03/16 08:41 1 MG Furosemide (Lasix tab) 80 mg DAILY PO 07/02/16 09:00 08/01/16 08:59 07/03/16 08:41 80 MG Lisinopril (Zestril Tab) 2.5 mg HS PO 07/02/16 21:00 08/01/16 20:59 07/03/16 21:12 2.5 MG Meclizine HCl (Antivert Tab) 25 mg TID PRN PO 07/02/16 01:00 08/01/16 00:59 Multivitamins (Multivitamin Tab) 1 tab DAILY PO 07/02/16 09:00 08/01/16 08:59 07/03/16 08:42 1 TAB Nitroglycerin (Nitrostat Tab) 0.4 mg UD PRN SL 07/02/16 01:00 08/01/16 00:59 Calcium Carbonate (oS-Wilian 500 TAB) 1,250 mg DAILY PO 07/02/16 09:00 08/01/16 08:59 07/03/16 08:40 1,250 MG Prochlorperazine Maleate (Compazine Tab) 10 mg Q6 PRN PO 07/02/16 01:00 08/01/16 00:59 Warfarin Sodium (Coumadin Tab) 3 mg DAILY@1600 PO 07/02/16 16:00 08/01/16 15:59 07/03/16 17:43 3 MG Cholecalciferol (Vitamin D Tab) 5,000 inter.unit DAILY PO 07/02/16 09:00 08/01/16 08:59 07/03/16 08:41 5,000 INTER.UNIT Citalopram Hydrobromide (celeXA TAB) 20 mg DAILY PO 07/02/16 09:00 08/01/16 08:59 07/03/16 08:40 20 MG Pantoprazole Sodium (Protonix Tab) 40 mg QAM PO 07/02/16 09:00 08/01/16 08:59 07/03/16 08:40 40 MG Ranolazine (Ranexa ER Tab) 500 mg BID PO 07/02/16 09:00 08/01/16 08:59 07/03/16 21:13 500 MG Zinc Sulfate (Zinc Sulfate Cap) 220 mg BID PO 07/02/16 09:00 08/01/16 08:59 07/03/16 21:11 220 MG Acetazolamide (Diamox Tab) 250 mg BID PO 07/02/16 09:00 08/01/16 08:59 07/03/16 21:12 250 MG Miscellaneous Information (Consult Glycemic Management Pharmacy) 1 ea UD N/A 07/02/16 09:24 08/01/16 09:23 Insulin Aspart (novoLOG ASPART) SLIDING SCALE ACHS SC 07/02/16 11:00 08/01/16 10:59 07/03/16 12:43 2 UNITS Epoetin Ever (Procrit Inj) 10,000 units TODAY@0715 IV. 07/04/16 07:15 07/04/16 18:00 07/04/16 11:43 10,000 UNITS Cefdinir (Omnicef Susp) 300 mg Q2D@1600 PO 07/04/16 16:00 07/14/16 15:59
[2016-07-04] MEDS: FUROSEMIDE 40 MG TAB PO SCH (16:48)
[2016-07-04] MEDS: AcetaZOLAMIDE 250 MG TAB PO SCH ×2 (16:48→19:53)
[2016-07-04] MEDS: CEFDINIR 250 MG/5 ML 60 ML PO SCH (16:49)
[2016-07-04] MEDS: DIGOXIN 0.125 MG TAB PO SCH (16:49)
[2016-07-04] MEDS: CARVEDILOL 12.5 MG TAB PO SCH ×2 (16:49→19:53)
[2016-07-04] MEDS: WARFARIN SOD 3 MG TAB PO SCH (17:45)
[2016-07-04 19:07] LABS: INR 1.7 (0.9-1.1); PROTHROMBIN TIME (PATIENT) 18.4 SECONDS (9.0-12.0)
[2016-07-04] MEDS: LISINOPRIL 2.5 MG TAB PO SCH (19:53)
[2016-07-04] MEDS ORDERED: CEFDINIR 250 MG/5 ML 60 ML PO SCH (21:00)
[2016-07-05] VITALS (10 sets, daily range): BP systolic 107–129; BP diastolic 59–72; PULSE 53–94; TEMP 36.8–37; O2SAT 92–100
[2016-07-05 06:38] LABS: MEAN CORPUSCULAR HEMOGLOBIN 32.4 pg (25-34); MEAN CORPUSCULAR HGB CONC 32.8 g/dl (32-36); MEAN PLATELET VOLUME 9.8 fL (7.4-10.4); PLATELET COUNT 187 K/uL (130-400); RED BLOOD COUNT 2.93 M/uL (4.7-6.1)
[2016-07-05 06:47] LABS: INR 1.7 (0.9-1.1); PROTHROMBIN TIME (PATIENT) 18.3 SECONDS (9.0-12.0)
[2016-07-05 07:37] LABS: BUN/CREATININE RATIO 11.9 (10-20); CALCIUM 8.2 mg/dl (8.5-10.1); CREATININE 4.1 mg/dl (0.60-1.40); MAGNESIUM 2.1 mg/dl (1.8-2.4); POTASSIUM 3.8 mmol/L (3.5-5.1)
[2016-07-05] MEDS: INSULIN ASPART 100 UNITS/ML 3 ML PEN SC SCH ×4 (07:51→20:56)
[2016-07-05] MEDS: ASPIRIN 81 MG ECTAB PO SCH (07:52)
[2016-07-05] MEDS: CALCIUM CARBONATE 1250MG TAB PO SCH (07:52)
[2016-07-05] MEDS: CHOLECALCIFEROL 1000 INTER.UNIT TAB PO SCH (07:52)
[2016-07-05] MEDS: AcetaZOLAMIDE 250 MG TAB PO SCH ×2 (07:52→20:54)
[2016-07-05] MEDS: CITALOPRAM 20 MG TAB PO SCH (07:52)
[2016-07-05] MEDS: RANOLAZINE 500 MG ER TAB PO SCH ×2 (07:53→20:54)
[2016-07-05] MEDS: MULTIVITAMIN TAB PO SCH (07:53)
[2016-07-05] MEDS: PANTOprazole SOD 40 MG TAB PO SCH (07:54)
[2016-07-05] MEDS: ZINC SULFATE 220 MG CAP PO SCH ×2 (07:54→20:54)
[2016-07-05] MEDS: CARVEDILOL 12.5 MG TAB PO SCH ×2 (09:00→20:54)
[2016-07-05] MEDS: FUROSEMIDE 40 MG TAB PO SCH (09:00)
--- NOTE | 2016-07-05 10:57 | Clinical Documentation Query ---
CLINICAL DOCUMENTATION QUERY The patient's record is conflictual in the description of the wounds of on patient's right toes and foot. Medical record is stating these as arterial wounds with no other mechanism of injury. Wound care clinic visit notes state otherwise. In your clinical opinion is this patient being managed for: ( ) Pressure ulcer of right heel and right 3rd toe that are both Stage III or greater by definition of "unstagable" in setting of vascular insufficiency POA. ( ) Other explanation of clinical findings (Please Explain) ( ) Unable to determine (Please Define) ( ) Need to Discuss ( ) Not Agree The medical record reflects the following clinical findings, treatment, and risk factors. Clinical Indicators: As above. Treatment: WOCN consult, waffle boots, daily dressing changes, Risk Factors: Age, DM, PAD, Please clarify and document your clinical opinion in the progress notes and discharge summary. Terms such as "probable", "suspected", "likely", "questionable", "possible", or "still to be ruled out" are acceptable. IF IN AGREEMENT, YOU MUST DOCUMENT ABOVE DIAGNOSTIC STATEMENT IN DAILY PROGRESS NOTES AND DISCHARGE SUMMARY. This document is not part of the patient's record. Thank You, Rian Soria, RN [phone] Stage 1 Pressure Injury: Non-blanchable erythema of intact skinIntact skin with a localized area of non-blanchable erythema, which may appear differently in darkly pigmented skin. Presence of blanchable erythema or changes in sensation, temperature, or firmness may precede visual changes. Color changes do not include purple or maroon discoloration; these may indicate deep tissue pressure injury. Stage 2 Pressure Injury: Partial-thickness skin loss with exposed dermisPartial-thickness loss of skin with exposed dermis. The wound bed is viable, pink or red, moist, and may also present as an intact or ruptured serum-filled blister. Adipose (fat) is not visible and deeper tissues are not visible. Granulation tissue, slough and eschar are not present. These injuries commonly result from adverse microclimate and shear in the skin over the pelvis and shear in the heel. This stage should not be used to describe moisture associated skin damage (MASD) including incontinence associated dermatitis (IAD), intertriginous dermatitis (ITD), medical adhesive related skin injury (MARSI), or traumatic wounds (skin tears, [place], abrasions). Stage 3 Pressure Injury: Full-thickness skin lossFull-thickness loss of skin, in which adipose (fat) is visible in the ulcer and granulation tissue and epibole (rolled wound edges) are often present. Slough and/or eschar may be visible. The depth of tissue damage varies by anatomical location; areas of significant adiposity can develop deep wounds. Undermining and tunneling may occur. Fascia, muscle, tendon, ligament, cartilage and/or bone are not exposed. If slough or eschar obscures the extent of tissue loss this is an Unstageable Pressure Injury. Stage 4 Pressure Injury: Full-thickness skin and tissue lossFull-thickness skin and tissue loss with exposed or directly palpable fascia, muscle, tendon, ligament, cartilage or bone in the ulcer. Slough and/or eschar may be visible. Epibole (rolled edges), undermining and/or tunneling often occur. Depth varies by anatomical location. If slough or eschar obscures the extent of tissue loss this is an Unstageable Pressure Injury. Unstageable Pressure Injury: Obscured full-thickness skin and tissue lossFull-thickness skin and tissue loss in which the extent of tissue damage within the ulcer cannot be confirmed because it is obscured by slough or eschar. If slough or eschar is removed, a Stage 3 or Stage 4 pressure injury will be revealed. Stable eschar (i.e. dry, adherent, intact without erythema or fluctuance) on an ischemic limb or the heel(s) should not be removed. Deep Tissue Pressure Injury: Persistent non-blanchable deep red, maroon or purple discolorationIntact or non-intact skin with localized area of persistent non-blanchable deep red, maroon, purple discoloration or epidermal separation revealing a dark wound bed or blood filled blister. Pain and temperature change often precede skin color changes. Discoloration may appear differently in darkly pigmented skin. This injury results from intense and/or prolonged pressure and shear forces at the bone-muscle interface. The wound may evolve rapidly to reveal the actual extent of tissue injury, or may resolve without tissue loss. If necrotic tissue, subcutaneous tissue, granulation tissue, fascia, muscle or other underlying structures are visible, this indicates a full thickness pressure injury (Unstageable, Stage 3 or Stage 4). Do not use DTPI to describe vascular, traumatic, neuropathic, or dermatologic conditions.
--- NOTE | 2016-07-05 14:24 | Pharmacy Progress Note ---
Glycemic Control: Progress Nt Date of Service Jul 05, 2016. Scope Glycemic Pharmacist consulted by Dr Hernandez on 07/02/16 for glycemic control and to write orders per [facility] inpatient glycemic control protocol. Objective Accuchecks BSG (last 24hrs): Test 07/04/16 16:14 07/04/16 22:52 07/05/16 06:15 07/05/16 07:05 Bedside Glucose 115 mg/dl (70-99) 134 mg/dl (70-99) 142 mg/dl (70-99) Random Glucose 132 mg/dl (70-99) Laboratory Data (last 24hrs) Test 07/05/16 06:15 Anion Gap 12.0 mmol/L BUN/Creatinine Ratio 11.9 Blood Urea Nitrogen 49 mg/dl Creatinine 4.10 mg/dl Potassium Level 3.8 mmol/L Sodium Level 138 mmol/L White Blood Count 11.90 K/uL Recent Pertinent Medications Outpatient Anti-diabetic Regimen: * Lantus 70 units SQ daily * Humalog 5 units if BSG is > 150mg/dL The patient is currently receiving: * Basal insulin: Lantus - currently on hold. Last dose given 07/02 PM * Correctional Insulin: Novolog Correction per scale ACHS Goal Range: Low 140 mg/dL - High 180 mg/dL Correction Factor: 30 mg/dL/unit * Prandial insulin: Per carb ratio of 1 unit per 15 grams CHO consumed * Oral Agents: None currently Risk Factors for Insulin Resistance: * Infection: receiving Cefdinir for UTI * Diet: ordered Renal diet; he did consume 40gm CHO's with breakfast this AM Assessment & Plan ASSESSMENT: 07/05/16: * Glycemic control acceptable at this time; BSGs have ranged 120-167 over the last 24 hours * Lantus has been on hold since 07/02 PM - and despite this fasting BSGs have been good each morning. Will continue to hold Lantus at this time. He will require a decrease in his outpatient dose on discharge. * Diet seems to be erratic. Often skipping meals and consuming varying amounts of carbs. * Novolog CF and CR have performed well when used - no changes required at this time. PLAN FOR INPATIENT GLYCEMIC CONTROL: * Continue to hold Lantus * Continuing correction factor of 30 mg/dl/unit * Continuing carb ratio of 1 unit per 15 grams CHO consumed * Continuing goal range of Low 140 mg/dL - High 180 mg/dL RECOMMENDATIONS FOR DISCHARGE: * Lantus dose will need to be reduced substantially. If he were to be discharged in the near future, I would recommend no more than 10 units daily as he has become hyoglycemic with 20units daily while hospitalized. He would also require a Novolog sliding scale. I probably would not order a set dose with meals if he is able to follow a scale. Would recommend 1 unit for every 40mg/ dL above 140. * Please note that the plan above was derived based on current level of insulin resistance and hospital stress. These recommendations are appropriate for inpatient admission only. Plan of care upon discharge will need to be reassessed to avoid potential outpatient hypo/hyperglycemia. Thank you.
--- NOTE | 2016-07-05 14:59 | Nephrology Progress Note ---
Nephrology Progress Note Date of Service: Jul 05, 2016. Subjective 76 yo male with ESRD on pd who presented with confusion and falls and found to have a uti. Patient is asleep during interview and unable to acquire personal history. He is surrounded by family who explains that he was acting oddly after dialysis yesterday. HD nurse confirms that patient was not oriented upon coming to the dialysis suite and required one on one nurse care to hold fistula arm to prevent infiltration. Patient's nurse remarks that the patient seems oriented more appropriately this morning and was actively walking around with PT this morning. urine outputs are improved. receiving antibiotics after dialysis. Objective Date Time Temp Pulse Resp B/P Pulse Ox O2 Delivery O2 Flow Rate FiO2 07/05/16 12:10 36.8 94 18 108/69 100 Room Air 07/05/16 12:00 95 Room Air 07/05/16 08:00 95 Room Air 07/05/16 07:21 36.9 91 18 107/67 95 Room Air 07/05/16 04:15 Room Air 07/05/16 03:47 36.8 92 18 121/72 92 Room Air 07/05/16 00:00 97 Room Air 07/04/16 23:59 36.9 90 18 117/67 97 Room Air 07/04/16 20:00 97 Room Air 07/04/16 19:39 37.2 90 20 148/68 97 07/04/16 16:49 86 07/04/16 16:00 Room Air 07/04/16 15:48 37.4 92 18 131/72 97 Room Air Physical Exam: GEN: WNWD, in no acute distress. somnolent HEENT: NC/AT, normal sclerae CARDIO: reg rate, S1/2 heard, 3/6 JACEK at LSB LUNGS: CTA bilaterally, no crackles, rales or wheezes, good diaphragmatic excursion ABD: soft, non-tender, non-distended, no rebound or guarding +pd cath EXTREMITY:no LE swelling or edema, extremities are warm and well-perfused +AVF NEURO: nonfocal MUSC: no gross focal deficits, generalized deconditioning was noted. SKIN: warm and dry Current Inpatient Medications Medications (Trade) Dose Ordered Sig/Andrei Route Start Time Stop Time Status Last Admin Dose Admin Acetaminophen (Tylenol Tab) 650 mg Q4H PRN PO 07/02/16 00:45 08/01/16 00:44 Ondansetron HCl (Zofran Inj) 4 mg Q6H PRN IV 07/02/16 00:45 08/01/16 00:44 Aspirin (Ecotrin Tab) 81 mg DAILY PO 07/02/16 09:00 08/01/16 08:59 07/05/16 07:52 81 MG Carvedilol (Coreg Tab) 12.5 mg BID PO 07/02/16 09:00 08/01/16 08:59 07/05/16 09:00 12.5 MG Digoxin (Lanoxin Tab) 0.125 mg MoWeFr@1600 PO 07/04/16 16:00 08/03/16 15:59 07/04/16 16:49 0.125 MG Folic Acid (Folvite Tab) 1 mg DAILY PO 07/02/16 09:00 08/01/16 08:59 07/05/16 07:53 1 MG Furosemide (Lasix tab) 80 mg DAILY PO 07/02/16 09:00 08/01/16 08:59 07/05/16 09:00 80 MG Lisinopril (Zestril Tab) 2.5 mg HS PO 07/02/16 21:00 08/01/16 20:59 07/04/16 19:53 2.5 MG Meclizine HCl (Antivert Tab) 25 mg TID PRN PO 07/02/16 01:00 08/01/16 00:59 Multivitamins (Multivitamin Tab) 1 tab DAILY PO 07/02/16 09:00 08/01/16 08:59 07/05/16 07:53 1 TAB Nitroglycerin (Nitrostat Tab) 0.4 mg UD PRN SL 07/02/16 01:00 08/01/16 00:59 Calcium Carbonate (oS-Wilian 500 TAB) 1,250 mg DAILY PO 07/02/16 09:00 08/01/16 08:59 07/05/16 07:52 1,250 MG Prochlorperazine Maleate (Compazine Tab) 10 mg Q6 PRN PO 07/02/16 01:00 08/01/16 00:59 Warfarin Sodium (Coumadin Tab) 3 mg DAILY@1600 PO 07/02/16 16:00 08/01/16 15:59 07/04/16 17:45 3 MG Cholecalciferol (Vitamin D Tab) 5,000 inter.unit DAILY PO 07/02/16 09:00 08/01/16 08:59 07/05/16 07:52 5,000 INTER.UNIT Citalopram Hydrobromide (celeXA TAB) 20 mg DAILY PO 07/02/16 09:00 08/01/16 08:59 07/05/16 07:52 20 MG Pantoprazole Sodium (Protonix Tab) 40 mg QAM PO 07/02/16 09:00 08/01/16 08:59 07/05/16 07:54 40 MG Ranolazine (Ranexa ER Tab) 500 mg BID PO 07/02/16 09:00 08/01/16 08:59 07/05/16 07:53 500 MG Zinc Sulfate (Zinc Sulfate Cap) 220 mg BID PO 07/02/16 09:00 08/01/16 08:59 07/05/16 07:54 220 MG Acetazolamide (Diamox Tab) 250 mg BID PO 07/02/16 09:00 08/01/16 08:59 07/05/16 07:52 250 MG Miscellaneous Information (Consult Glycemic Management Pharmacy) 1 ea UD N/A 07/02/16 09:24 08/01/16 09:23 Insulin Aspart (novoLOG ASPART) SLIDING SCALE ACHS SC 07/02/16 11:00 08/01/16 10:59 07/05/16 07:51 3 UNITS Cefdinir (Omnicef Susp) 300 mg Q2D@1600 PO 07/04/16 16:00 07/14/16 15:59 07/04/16 16:49 300 MG Last 24 Hours Test 07/04/16 16:14 07/04/16 18:50 07/04/16 22:52 07/05/16 06:15 Bedside Glucose 115 mg/dl 134 mg/dl Prothrombin Time 18.4 SECONDS 18.3 SECONDS Prothromb Time International Ratio 1.7 1.7 White Blood Count 11.90 K/uL Red Blood Count 2.93 M/uL Hemoglobin 9.5 g/dL Hematocrit 29.0 % Mean Corpuscular Volume 99.0 fL Mean Corpuscular Hemoglobin 32.4 pg Mean Corpuscular Hemoglobin Concent 32.8 g/dl RDW Standard Deviation 56.9 fL RDW Coefficient of Variation 15.8 % Platelet Count 187 K/uL Mean Platelet Volume 9.8 fL Sodium Level 138 mmol/L Potassium Level 3.8 mmol/L Chloride Level 100 mmol/L Carbon Dioxide Level 26 mmol/L Anion Gap 12.0 mmol/L Blood Urea Nitrogen 49 mg/dl Creatinine 4.10 mg/dl Est Creatinine Clear Calc Drug Dose 16.7 ml/min Estimated GFR () 15.3 Estimated GFR (Non- 13.2 BUN/Creatinine Ratio 11.9 Random Glucose 132 mg/dl Calcium Level 8.2 mg/dl Magnesium Level 2.1 mg/dl Test 07/05/16 07:05 Bedside Glucose 142 mg/dl Other Studies: 07/03/16 07/04/16 07/05/16 08:00 08:00 08:00 Intake Total 2859 ml 630 ml 675 ml Output Total 2350 ml 600 ml 1625 ml Balance 509 ml 30 ml -950 ml Assessment & Plan ESRD-to continue with hemodialysis on schedule Plan to switch patient back to PD once discharged. volume status appropriate. potassium good at 3.8. tolerating small uf without drop in blood pressure. will continue to follow closely. pt is well known to dialysis and unlikely to develop dysequilibrium syndrome. Anemia of renal failure-recently was transfused 2 units prbc's. hgb 9.5. getting procrit prn on dialysis. confusion could be multifactorial. will continue to monitor. greatly appreciate hospitalist help. This patient was seen and treated with direct collaboration with Dr. Chowdhruy. Thank you for the opportunity to participate in this patient's care. Appreciate the Consult. ATTENDING NOTE: I performed a history and physical examination of the patient, including specifically on history- pt is asleep and has been noted to be more confused yesterday then compared over the weekend, on physical exam-cta, and my impression and plan are ESRD-continue hd . no dialysis indicated for today. I have discussed the patient's management with Anastasia Marlow PA-C, Please refer to above note for the documented findings and plan of care. Michael Chowdhury DO
[2016-07-05] MEDS: WARFARIN SOD 3 MG TAB PO SCH (16:19)
--- NOTE | 2016-07-05 18:53 | Progress Note ---
Internal Med Progress Note Date of Service: Jul 05, 2016. Provider Documentation: SUBJECTIVE: patient says he is fine slept ok somewhat nauseous cud not eat much when asked about rehab placement he said he might consider OBJECTIVE: Vital Signs-as noted below Exam: General-alert and awake ENT-normal hearing Neck-no neck masses Lungs-cta b/l no wheezing or crackles Heart-s1 and s2 heard regular rate and rhythm no murmurs Abdomen-soft bowel sounds present non tender no distension Extremities-no erythema Neuro-alert and awake moves extremities Lab data as noted below. ASSESSMENT & PLAN: 76 yo M presented to the hospital and admitted for encephalopathy 2/2 UTI Metabolic Encephalopathy-resolved. Acute Cystitis-improved. Was on Rocephin switched to Omnicef PO on 07/04. Ambulatory dysfunction with weakness--PT/OT recommends rehab. ESRD: Holding PD and on HD while in hospital;, Nephro following. Fall at home with ecchymosis on LUE-on warfarin, no xrays needed at this time- hypoglycemia may be contributing to falls and confusion at home?Plan for rehab. DMII: Pharmacy managing-appreciate recs--hypoglycemia in am is improved. . Insulin dosage should be decreased accordingly at discharge. Anemia 2/2 CKD: s/p 2U PRBC's on 07/02 with appropriate response; Procrit given prior to HD yesterday. H/o prostate Ca with lung nodule-per [facility] note, patient doesn't want this worked up. Wound on heel with known PAD-plan for upcoming balloon angio to RLE soon once out of hospital--consulted wound care . PAD-outpatient plan as above,. 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 DVT proph-Coumadin Full Code Disposition to be determined social service for d/c planning Vital Signs: Date Time Temp Pulse Resp B/P Pulse Ox O2 Delivery O2 Flow Rate FiO2 07/05/16 16:00 95 Room Air 07/05/16 15:30 36.8 53 18 129/59 98 07/05/16 12:10 36.8 94 18 108/69 100 Room Air 07/05/16 12:00 95 Room Air 07/05/16 08:00 95 Room Air 07/05/16 07:21 36.9 91 18 107/67 95 Room Air 07/05/16 04:15 Room Air 07/05/16 03:47 36.8 92 18 121/72 92 Room Air 07/05/16 00:00 97 Room Air 07/04/16 23:59 36.9 90 18 117/67 97 Room Air 07/04/16 20:00 97 Room Air 07/04/16 19:39 37.2 90 20 148/68 97 Lab Results: Results Past 24 Hours Test 07/04/16 18:50 07/04/16 22:52 07/05/16 06:15 07/05/16 07:05 Range/Units Prothrombin Time 18.4 18.3 9.0-12.0 SECONDS Prothromb Time International Ratio 1.7 1.7 0.9-1.1 Bedside Glucose 134 142 70-99 mg/dl White Blood Count 11.90 4.8-10.8 K/uL Red Blood Count 2.93 4.7-6.1 M/uL Hemoglobin 9.5 14.0-18.0 g/dL Hematocrit 29.0 42-52 % Mean Corpuscular Volume 99.0 80-100 fL Mean Corpuscular Hemoglobin 32.4 25-34 pg Mean Corpuscular Hemoglobin Concent 32.8 32-36 g/dl RDW Standard Deviation 56.9 36.4-46.3 fL RDW Coefficient of Variation 15.8 11.5-14.5 % Platelet Count 187 130-400 K/uL Mean Platelet Volume 9.8 7.4-10.4 fL Sodium Level 138 136-145 mmol/L Potassium Level 3.8 3.5-5.1 mmol/L Chloride Level 100 98-107 mmol/L Carbon Dioxide Level 26 21-32 mmol/L Anion Gap 12.0 3-11 mmol/L Blood Urea Nitrogen 49 7-18 mg/dl Creatinine 4.10 0.60-1.40 mg/dl Est Creatinine Clear Calc Drug Dose 16.7 ml/min Estimated GFR () 15.3 Estimated GFR (Non- 13.2 BUN/Creatinine Ratio 11.9 10-20 Random Glucose 132 70-99 mg/dl Calcium Level 8.2 8.5-10.1 mg/dl Magnesium Level 2.1 1.8-2.4 mg/dl Test 07/05/16 16:11 Range/Units Bedside Glucose 180 70-99 mg/dl
[2016-07-05] MEDS: LISINOPRIL 2.5 MG TAB PO SCH (20:54)
[2016-07-06] VITALS (16 sets, daily range): BP systolic 99–140; BP diastolic 50–86; PULSE 60–89; TEMP 36.5–37; O2SAT 95–100
[2016-07-06 06:32] LABS: HEMATOCRIT 28.4 % (42-52); MEAN CELL VOLUME 101.8 fL (80-100); MEAN CORPUSCULAR HEMOGLOBIN 32.6 pg (25-34); MEAN PLATELET VOLUME 9.9 fL (7.4-10.4); PLATELET COUNT 182 K/uL (130-400); RED BLOOD COUNT 2.79 M/uL (4.7-6.1); WHITE BLOOD COUNT 11.34 K/uL (4.8-10.8)
[2016-07-06 06:42] LABS: INR 1.8 (0.9-1.1); PROTHROMBIN TIME (PATIENT) 19.2 SECONDS (9.0-12.0)
[2016-07-06] MEDS: INSULIN ASPART 100 UNITS/ML 3 ML PEN SC SCH ×4 (07:34→21:15)
[2016-07-06] MEDS: CHOLECALCIFEROL 1000 INTER.UNIT TAB PO SCH (07:35)
[2016-07-06] MEDS: MULTIVITAMIN TAB PO SCH (07:35)
[2016-07-06] MEDS: CITALOPRAM 20 MG TAB PO SCH (07:36)
[2016-07-06] MEDS: CARVEDILOL 12.5 MG TAB PO SCH ×2 (07:36→21:07)
[2016-07-06] MEDS: ASPIRIN 81 MG ECTAB PO SCH (07:36)
[2016-07-06] MEDS: FUROSEMIDE 40 MG TAB PO SCH (07:36)
[2016-07-06] MEDS: ZINC SULFATE 220 MG CAP PO SCH ×2 (07:36→21:07)
[2016-07-06] MEDS: AcetaZOLAMIDE 250 MG TAB PO SCH ×2 (07:37→21:07)
[2016-07-06] MEDS: RANOLAZINE 500 MG ER TAB PO SCH ×2 (07:37→21:07)
[2016-07-06] MEDS: CALCIUM CARBONATE 1250MG TAB PO SCH (07:37)
[2016-07-06] MEDS: PANTOprazole SOD 40 MG TAB PO SCH (07:37)
[2016-07-06 07:46] LABS: BUN/CREATININE RATIO 11.5 (10-20); CREATININE 4.9 mg/dl (0.60-1.40); MAGNESIUM 2.1 mg/dl (1.8-2.4); POTASSIUM 3.6 mmol/L (3.5-5.1)
[2016-07-06] MEDS ORDERED: EPOETIN ALFA INJ 6,000 UNITS in SYRINGE 0 ML IV. SCH (08:00)
[2016-07-06] MEDS ORDERED: EPOETIN ALFA 10,000 UNITS/ML VIAL IV. ONE (08:00)
--- NOTE | 2016-07-06 09:30 | Nephrology Progress Note ---
Nephrology Progress Note Date of Service: Jul 06, 2016. Subjective 76 yo male with ESRD on pd who presented with confusion and falls and found to have a uti. Patient is awake, alert, and oriented x 3 and states that he is feeling much better today. Plan for dialysis today. denies any vomiting, chest pain, or sob. does report early satiety. urine output good. Objective Date Time Temp Pulse Resp B/P Pulse Ox O2 Delivery O2 Flow Rate FiO2 07/06/16 08:00 95 Room Air 07/06/16 07:50 36.6 84 18 132/63 100 07/06/16 04:00 Room Air 07/06/16 03:53 36.7 88 19 124/68 100 Room Air 07/06/16 00:00 Room Air 07/05/16 23:48 37.0 74 19 126/59 100 Room Air 07/05/16 20:06 36.8 60 18 120/62 98 07/05/16 20:00 Room Air 07/05/16 16:00 95 Room Air 07/05/16 15:30 36.8 53 18 129/59 98 07/05/16 12:10 36.8 94 18 108/69 100 Room Air 07/05/16 12:00 95 Room Air Physical Exam: GEN: WNWD, in no acute distress. alert and oriented x 3 HEENT: NC/AT, normal sclerae CARDIO: reg rate, S1/2 heard, 3/6 JACEK at LSB LUNGS: CTA bilaterally, no crackles, rales or wheezes, good diaphragmatic excursion ABD: soft, non-tender, non-distended, no rebound or guarding +pd cath EXTREMITY:no LE swelling or edema, extremities are warm and well-perfused +AVF NEURO: nonfocal MUSC: no gross focal deficits, generalized deconditioning was noted. SKIN: warm and dry Current Inpatient Medications Medications (Trade) Dose Ordered Sig/Andrei Route Start Time Stop Time Status Last Admin Dose Admin Acetaminophen (Tylenol Tab) 650 mg Q4H PRN PO 07/02/16 00:45 08/01/16 00:44 Ondansetron HCl (Zofran Inj) 4 mg Q6H PRN IV 07/02/16 00:45 08/01/16 00:44 Aspirin (Ecotrin Tab) 81 mg DAILY PO 07/02/16 09:00 08/01/16 08:59 07/06/16 07:36 81 MG Carvedilol (Coreg Tab) 12.5 mg BID PO 07/02/16 09:00 08/01/16 08:59 07/06/16 07:36 12.5 MG Digoxin (Lanoxin Tab) 0.125 mg MoWeFr@1600 PO 07/04/16 16:00 08/03/16 15:59 07/04/16 16:49 0.125 MG Folic Acid (Folvite Tab) 1 mg DAILY PO 07/02/16 09:00 08/01/16 08:59 07/06/16 07:35 1 MG Furosemide (Lasix tab) 80 mg DAILY PO 07/02/16 09:00 08/01/16 08:59 07/06/16 07:36 80 MG Lisinopril (Zestril Tab) 2.5 mg HS PO 07/02/16 21:00 08/01/16 20:59 07/05/16 20:54 2.5 MG Meclizine HCl (Antivert Tab) 25 mg TID PRN PO 07/02/16 01:00 08/01/16 00:59 Multivitamins (Multivitamin Tab) 1 tab DAILY PO 07/02/16 09:00 08/01/16 08:59 07/06/16 07:35 1 TAB Nitroglycerin (Nitrostat Tab) 0.4 mg UD PRN SL 07/02/16 01:00 08/01/16 00:59 Calcium Carbonate (oS-Wilina 500 TAB) 1,250 mg DAILY PO 07/02/16 09:00 08/01/16 08:59 07/06/16 07:37 1,250 MG Prochlorperazine Maleate (Compazine Tab) 10 mg Q6 PRN PO 07/02/16 01:00 08/01/16 00:59 Warfarin Sodium (Coumadin Tab) 3 mg DAILY@1600 PO 07/02/16 16:00 08/01/16 15:59 07/05/16 16:19 3 MG Cholecalciferol (Vitamin D Tab) 5,000 inter.unit DAILY PO 07/02/16 09:00 08/01/16 08:59 07/06/16 07:35 5,000 INTER.UNIT Citalopram Hydrobromide (celeXA TAB) 20 mg DAILY PO 07/02/16 09:00 08/01/16 08:59 07/06/16 07:36 20 MG Pantoprazole Sodium (Protonix Tab) 40 mg QAM PO 07/02/16 09:00 08/01/16 08:59 07/06/16 07:37 40 MG Ranolazine (Ranexa ER Tab) 500 mg BID PO 07/02/16 09:00 08/01/16 08:59 07/06/16 07:37 500 MG Zinc Sulfate (Zinc Sulfate Cap) 220 mg BID PO 07/02/16 09:00 08/01/16 08:59 07/06/16 07:36 220 MG Acetazolamide (Diamox Tab) 250 mg BID PO 07/02/16 09:00 08/01/16 08:59 07/06/16 07:37 250 MG Miscellaneous Information (Consult Glycemic Management Pharmacy) 1 ea UD N/A 07/02/16 09:24 08/01/16 09:23 Insulin Aspart (novoLOG ASPART) SLIDING SCALE ACHS SC 07/02/16 11:00 08/01/16 10:59 07/06/16 07:34 2 UNITS Cefdinir 300 mg 300 mg Q2D@1600 PO 07/04/16 16:00 07/14/16 15:59 07/04/16 16:49 300 MG Epoetin Ever/ Syringe (Procrit Inj/ Syringe) 0.3 ml @ 1 mls/min TODAY@0800 IV. 07/06/16 08:00 07/06/16 18:00 Last 24 Hours Test 07/05/16 12:30 07/05/16 16:11 07/05/16 20:17 07/06/16 06:01 Bedside Glucose 120 mg/dl 180 mg/dl 243 mg/dl White Blood Count 11.34 K/uL Red Blood Count 2.79 M/uL Hemoglobin 9.1 g/dL Hematocrit 28.4 % Mean Corpuscular Volume 101.8 fL Mean Corpuscular Hemoglobin 32.6 pg Mean Corpuscular Hemoglobin Concent 32.0 g/dl RDW Standard Deviation 58.3 fL RDW Coefficient of Variation 15.7 % Platelet Count 182 K/uL Mean Platelet Volume 9.9 fL Prothrombin Time 19.2 SECONDS Prothromb Time International Ratio 1.8 Sodium Level 139 mmol/L Potassium Level 3.6 mmol/L Chloride Level 102 mmol/L Carbon Dioxide Level 26 mmol/L Anion Gap 11.0 mmol/L Blood Urea Nitrogen 58 mg/dl Creatinine 4.90 mg/dl Est Creatinine Clear Calc Drug Dose 13.9 ml/min Estimated GFR () 12.4 Estimated GFR (Non- 10.7 BUN/Creatinine Ratio 11.5 Random Glucose 147 mg/dl Calcium Level 8.0 mg/dl Magnesium Level 2.1 mg/dl Test 07/06/16 06:40 Bedside Glucose 143 mg/dl Assessment & Plan ESRD-To continue with hemodialysis on schedule or as clinical condition dictates. Plan to switch patient back to PD once discharged. volume status appropriate. potassium good at 3.8. will go for a shorter treatment today without uf to improve post dialysis fatigue. Anemia of renal failure-hgb 9.1. getting procrit prn on dialysis. will continue to monitor This patient was seen and treated with direct collaboration with Dr. Chowdhury. Thank you for the opportunity to participate in this patient's care. Appreciate the Consult. ATTENDING NOTE: I performed a history and physical examination of the patient, including specifically on history- pt more awake today, on physical [id number] cta, and my impression and plan are esrd-continue hemodialysis . pt was quite tired and confused on monday prior to dialysis but want to make sure he tolerates dialysis well today so giving a shorter treatment. I have discussed the patient's management with Anastasia Marlow PA-C, Please refer to above note for the documented findings and plan of care. Michael Chowdhury DO
--- NOTE | 2016-07-06 11:10 | Gastrointestinal Consultation ---
Gastrointestinal Consultation Date of Consultation: Jul 06, 2016 Attending Physician: Nomi Perales Consulting Physician: Jason Davis Reason for Consultation: Dysphagia History of Present Illness Patient is a 76 year old male currently admitted for change in mental status, progressive weakness and fall. He has hx of CAD s/p CABG in 2000, s/p mitral and aortic valve replacement on Coumadin, systolic HF, DM II, CKD on PD, Afib. Upon eval he was found to have Ecoli UTI, AMS suspected to be related to this and resolved. He is on Omnicef. He continues to receive dialysis for CKD. He does have chronic anemia, likely related to his CKD. Today GI is consulted to eval pt for c/o dysphagia. He has had issues w trouble swallowing for a couple of months now which is now progressively worse. Initially the consult mentioned pt having food stuck at times in mid sternum area. However in speaking w pt, he described having fullness and nausea feeling in epigastric area which then caused him to cough or even vomit. He denies any odynophagia, reflux symptoms. Besides some discomfort in epigastric area, he denies any other areas of abd pain, changes in BM habit. He states "all foods" bother him including liquids such as coffee. He also noticed weight loss, reportedly 100lbs within over a year. In reviewing his chart, he has had colonoscopy in 2006 - adenomatous polyp. Barium swallow in 1999 w signs of small hiatal hernia, ring, no reflux. Past Medical/Surgical History Medical Problems: (1) Chronic renal failure Status: Acute (2) Severe anemia Status: Acute (3) Supratherapeutic INR Status: Acute (4) UTI (urinary tract infection) Status: Acute Past Surgical History: AV shunt placement, Alveoplasty, toes amputation, CABG, AVR, MVR, prostatectoy, cataract surgery Family History Diabetes mellitus BROTHER FH: CAD (coronary artery disease) MOTHER BROTHER SISTER FH: lung cancer FATHER Social History Smoking Status: Never Smoker Drug Use: none Marital Status: Occupation Status: retired, disabled Allergies Coded Allergies: No Known Allergies (Verified , 03/30/16) Current Medications Home Meds and Scripts Medications Dose Route/Sig Max Daily Dose Days Date Category Dose Instructions Acetazolamide 250 Mg Tab 250 Mg PO BID 07/02/16 Reported Melatonin (Melatonin-Pyridoxine) 1 Tab Tab 1 Tab PO DAILY 07/01/16 Reported Calcium (Oyster Shell) 500 Mg Tab 500 Mg PO DAILY 07/01/16 Reported Zinc (Zinc Gluconate) 50 Mg Tab 50 Mg PO BID 07/01/16 Reported Vitamin D (Cholecalciferol) 5,000 Unit Tab 5,000 Units PO DAILY 07/01/16 Reported Ranexa (Ranolazine) 500 Mg Tab 1 Tab PO BID 30 07/01/16 Reported Coumadin (Warfarin Sodium) 3 Mg Tab 3 Mg PO DAILY 07/01/16 Reported Compazine (Prochlorperazine Maleate) 10 Mg Tab 1 Tab PO Q6 PRN 7 05/26/16 Reported Nitrostat (Nitroglycerin) 0.4 Mg/1 Tab Subl 0.4 Mg SL UD PRN 05/26/16 Reported Meclizine Hcl 25 Mg Tab 1 Tab PO TID PRN 30 05/26/16 Reported Aspirin EC Low Dose (Aspirin) 81 Mg Ectab 81 Mg PO DAILY 05/26/16 Reported Citalopram Hydrobromide 10 Mg Tab 2 Tab PO DAILY 90 03/30/16 Reported Bradley-3 (Fish Oil) 1 Ea Cap 1 Cap PO DAILY 08/14/15 Reported Humalog Pen (Insulin Lispro (Human)) 100 Unit/ Inj 5 Units SC DIRECTED PRN 05/22/12 Reported Lisinopril 2.5 Mg Tab 2.5 Mg PO HS 05/22/12 Reported Lasix (Furosemide) 40 Mg Tab 80 Mg PO DAILY 05/22/12 Reported Lanoxin (Digoxin) 0.125 Mg Tab 0.125 Mg PO 3XWK 05/22/12 Reported TAKES ON MON, WED, FRI. Coreg (Carvedilol) 12.5 Mg Tab 12.5 Mg PO BID 05/22/12 Reported Multivitamin (Multiple Vitamin) 1 Tab Tab 1 Tab PO DAILY 12/20/11 Reported Prilosec (Omeprazole) 20 Mg Capcr 20 Mg PO DAILY 12/20/11 Reported Lantus (Insulin Glargine) 100 Unit/ Inj 70 Units SC QAM 12/20/11 Reported Folvite (Folic Acid) 1 Mg Tab 1 Mg PO DAILY 12/20/11 Reported Review of Systems Constitutional: No chills, No fever ENT: + see HPI, + trouble swallowing, No pain on swallowing Cardiac: No chest pain Abdomen: + nausea, + pain, + vomiting, No constipation, No diarrhea Physical Exam Date Time Temp Pulse Resp B/P Pulse Ox O2 Delivery O2 Flow Rate FiO2 07/06/16 10:30 60 126/60 07/06/16 10:15 60 119/62 07/06/16 10:00 81 126/74 07/06/16 09:45 81 130/86 07/06/16 09:36 36.7 89 140/70 07/06/16 09:30 81 138/61 07/06/16 08:00 95 Room Air 07/06/16 07:50 36.6 84 18 132/63 100 07/06/16 04:00 Room Air 07/06/16 03:53 36.7 88 19 124/68 100 Room Air 07/06/16 00:00 Room Air 07/05/16 23:48 37.0 74 19 126/59 100 Room Air 07/05/16 20:06 36.8 60 18 120/62 98 07/05/16 20:00 Room Air 07/05/16 16:00 95 Room Air 07/05/16 15:30 36.8 53 18 129/59 98 07/05/16 12:10 36.8 94 18 108/69 100 Room Air 07/05/16 12:00 95 Room Air General Appearance: WD/WN, no apparent distress Eyes: normal inspection, PERRL, EOMI Neck: supple, no JVD, trachea midline Respiratory/Chest: no respiratory distress, no accessory muscle use, + decreased breath sounds Cardiovascular: regular rate, rhythm, no murmur, + gallop/S3 Abdomen: normal bowel sounds, soft, + tenderness (epigastric) Neurologic/Psych: alert, normal mood/affect, oriented x 3 Skin: normal color, no jaundice, no rash Laboratory Results Last 24 Hours Test 07/05/16 12:30 07/05/16 16:11 07/05/16 20:17 07/06/16 06:01 Bedside Glucose 120 mg/dl 180 mg/dl 243 mg/dl White Blood Count 11.34 K/uL Red Blood Count 2.79 M/uL Hemoglobin 9.1 g/dL Hematocrit 28.4 % Mean Corpuscular Volume 101.8 fL Mean Corpuscular Hemoglobin 32.6 pg Mean Corpuscular Hemoglobin Concent 32.0 g/dl RDW Standard Deviation 58.3 fL RDW Coefficient of Variation 15.7 % Platelet Count 182 K/uL Mean Platelet Volume 9.9 fL Prothrombin Time 19.2 SECONDS Prothromb Time International Ratio 1.8 Sodium Level 139 mmol/L Potassium Level 3.6 mmol/L Chloride Level 102 mmol/L Carbon Dioxide Level 26 mmol/L Anion Gap 11.0 mmol/L Blood Urea Nitrogen 58 mg/dl Creatinine 4.90 mg/dl Est Creatinine Clear Calc Drug Dose 13.9 ml/min Estimated GFR () 12.4 Estimated GFR (Non- 10.7 BUN/Creatinine Ratio 11.5 Random Glucose 147 mg/dl Calcium Level 8.0 mg/dl Magnesium Level 2.1 mg/dl Test 07/06/16 06:40 Bedside Glucose 143 mg/dl Impression Patient is a 76 year old male seen for dysphagia, initially c/o food stuck in mid sternum area. Though he described actually having fullness and nausea in mid epigastric area which then causes him to cough or vomit out food. He has associated weight loss ? 100lbs within over a year. Last barium swallow in 1999 , w sign of small hiatal hernia, ring. Plan - Obtain video swallow study and Speech therapy eval - Renal mechanical soft diet - Will defer EGD eval for now given comorbidities, current anticoagulant status. I performed a history and physical examination of the patient. I have discussed the patient's case, impression and plan with DIGNA Strauss. Her note reflects my findings and plan. Patient's symptoms not typical for esophageal dysphagia. Jaosn Davis MD
[2016-07-06] MEDS ORDERED: LORAZEPAM 1 MG TAB PO STA (14:38)
--- NOTE | 2016-07-06 14:54 | DIAGNOSTIC IMAGING REPORT ---
VIDEO SWALLOW HISTORY: Dysphagia renal failure. Acute change in mental status. TECHNIQUE: Video fluoroscopic evaluation of swallowing was performed in the AP and lateral projections by the speech pathology staff. The patient is fed nectar-thick and thin liquid barium, a barium coated wafer, and barium pudding. FLUOROSCOPY TIME: 2.4 minutes. COMPARISON STUDY: None. FINDINGS: With swallowing thin liquids via cup, there was penetration but no evidence of aspiration. When swallowing nectar thick liquids and pudding, there was no evidence of aspiration or penetration. When swallowing a cracker with paste, there is no aspiration or penetration. IMPRESSION: 1. Penetration but no evidence of aspiration when swallowing thin liquids. 2. Please see the speech pathologist report for detailed findings and recommendations. Electronically signed by: Matthew Viramontes M.D. 07/06/2016 2:52 PM Dictated Date/Time: 07/06/2016 2:50 PM
[2016-07-06] MEDS: CEFDINIR 250 MG/5 ML 60 ML PO SCH (17:08)
[2016-07-06] MEDS: WARFARIN SOD 3 MG TAB PO SCH (17:08)
[2016-07-06] MEDS: DIGOXIN 0.125 MG TAB PO SCH (17:08)
--- NOTE | 2016-07-06 18:50 | Progress Note ---
Internal Med Progress Note Date of Service: Jul 06, 2016. Provider Documentation: SUBJECTIVE: complains of food stuck in throat. cannot able to eat anything denies sob or chest pain afebrile OBJECTIVE: Vital Signs-as noted below Exam: General-alert and awake ENT-normal hearing Neck-no neck masses Lungs-cta b/l no wheezing or crackles Heart-s1 and s2 heard regular rate and rhythm no murmurs Abdomen-soft bowel sounds present non tender no distension Extremities-no erythema Neuro-alert and awake moves extremities Lab data as noted below. ASSESSMENT & PLAN: 76 yo M presented to the hospital and admitted for encephalopathy 2/2 UTI Metabolic Encephalopathy-resolved. Acute Cystitis-improved. Was on Rocephin switched to Omnicef PO on 07/04. Ambulatory dysfunction with weakness--PT/OT recommends rehab.patient wants to go home. Dysphagia- seen by GI recommends video swallow. speech consulted ESRD: Holding PD and on HD while in hospital;, Nephro following. Fall at home with ecchymosis on LUE-on warfarin, no xrays needed at this time- hypoglycemia may be contributing to falls and confusion at home?Denying to go to rehab. DMII: Pharmacy managing-appreciate recs--hypoglycemia in am is improved. . Insulin dosage should be decreased accordingly at discharge. Anemia 2/2 CKD: s/p 2U PRBC's on 07/02 with appropriate response; Procrit given prior to HD yesterday. H/o prostate Ca with lung nodule-per [facility] note, patient doesn't want this worked up. Wound on heel with known PAD-plan for upcoming balloon angio to RLE soon once out of hospital--consulted wound care . PAD-outpatient plan as above,. 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 DVT proph-Coumadin Full Code Disposition to be determined social service for d/c planning Vital Signs: Date Time Temp Pulse Resp B/P Pulse Ox O2 Delivery O2 Flow Rate FiO2 07/06/16 16:00 Room Air 07/06/16 15:29 36.7 88 18 108/65 100 Room Air 07/06/16 12:00 36.5 65 18 118/62 96 Room Air 07/06/16 12:00 95 Room Air 07/06/16 11:46 37.0 80 130/64 07/06/16 11:15 80 115/50 07/06/16 11:00 87 99/72 07/06/16 10:45 60 130/60 07/06/16 10:30 60 126/60 07/06/16 10:15 60 119/62 07/06/16 10:00 81 126/74 07/06/16 09:45 81 130/86 07/06/16 09:36 36.7 89 140/70 07/06/16 09:30 81 138/61 07/06/16 08:00 95 Room Air 07/06/16 07:50 36.6 84 18 132/63 100 07/06/16 04:00 Room Air 07/06/16 03:53 36.7 88 19 124/68 100 Room Air 07/06/16 00:00 Room Air 07/05/16 23:48 37.0 74 19 126/59 100 Room Air 07/05/16 20:06 36.8 60 18 120/62 98 07/05/16 20:00 Room Air Lab Results: Results Past 24 Hours Test 07/05/16 20:17 07/06/16 06:01 07/06/16 06:40 Range/Units Bedside Glucose 243 143 70-99 mg/dl White Blood Count 11.34 4.8-10.8 K/uL Red Blood Count 2.79 4.7-6.1 M/uL Hemoglobin 9.1 14.0-18.0 g/dL Hematocrit 28.4 42-52 % Mean Corpuscular Volume 101.8 80-100 fL Mean Corpuscular Hemoglobin 32.6 25-34 pg Mean Corpuscular Hemoglobin Concent 32.0 32-36 g/dl RDW Standard Deviation 58.3 36.4-46.3 fL RDW Coefficient of Variation 15.7 11.5-14.5 % Platelet Count 182 130-400 K/uL Mean Platelet Volume 9.9 7.4-10.4 fL Prothrombin Time 19.2 9.0-12.0 SECONDS Prothromb Time International Ratio 1.8 0.9-1.1 Sodium Level 139 136-145 mmol/L Potassium Level 3.6 3.5-5.1 mmol/L Chloride Level 102 98-107 mmol/L Carbon Dioxide Level 26 21-32 mmol/L Anion Gap 11.0 3-11 mmol/L Blood Urea Nitrogen 58 7-18 mg/dl Creatinine 4.90 0.60-1.40 mg/dl Est Creatinine Clear Calc Drug Dose 13.9 ml/min Estimated GFR () 12.4 Estimated GFR (Non- 10.7 BUN/Creatinine Ratio 11.5 10-20 Random Glucose 147 70-99 mg/dl Calcium Level 8.0 8.5-10.1 mg/dl Magnesium Level 2.1 1.8-2.4 mg/dl
[2016-07-06] MEDS: LISINOPRIL 2.5 MG TAB PO SCH (21:07)
[2016-07-07 00:12] VITALS: BP 130/69; PULSE 90; TEMP 36.8; O2SAT 99
[2016-07-07 03:25] VITALS: BP 122/68; PULSE 88; TEMP 36.7; O2SAT 99
[2016-07-07 07:01] LABS: PROTHROMBIN TIME (PATIENT) 22.3 SECONDS (9.0-12.0)
[2016-07-07 07:23] VITALS: BP 114/65; PULSE 62; TEMP 36.6; O2SAT 100
[2016-07-07 08:00] VITALS: O2SAT 95
[2016-07-07] MEDS: INSULIN ASPART 100 UNITS/ML 3 ML PEN SC SCH ×2 (08:19→11:00)
[2016-07-07] MEDS: CARVEDILOL 12.5 MG TAB PO SCH (08:24)
[2016-07-07] MEDS: FUROSEMIDE 40 MG TAB PO SCH (08:24)
[2016-07-07] MEDS: RANOLAZINE 500 MG ER TAB PO SCH (08:24)
[2016-07-07] MEDS: CHOLECALCIFEROL 1000 INTER.UNIT TAB PO SCH (08:25)
[2016-07-07] MEDS: CALCIUM CARBONATE 1250MG TAB PO SCH (08:25)
[2016-07-07] MEDS: ZINC SULFATE 220 MG CAP PO SCH (08:25)
[2016-07-07] MEDS: ASPIRIN 81 MG ECTAB PO SCH (08:25)
[2016-07-07] MEDS: CITALOPRAM 20 MG TAB PO SCH (08:25)
[2016-07-07] MEDS: AcetaZOLAMIDE 250 MG TAB PO SCH (08:25)
[2016-07-07] MEDS: MULTIVITAMIN TAB PO SCH (08:25)
[2016-07-07] MEDS: PANTOprazole SOD 40 MG TAB PO SCH (08:27)
--- NOTE | 2016-07-07 08:58 | Gastroenterology Progress Note ---
Progress Note Date of Service: Jul 07, 2016 Subjective Pt evaluation today including: conversation w/ patient, physical exam, chart review, lab review, review of studies, review of inpatient medication list Pt reports able to eat breakfast quite well, denies any food stuck in esophagus , abd pain, nausea, vomiting. Review of Systems Constitutional: No chills, No fever Respiratory: No cough, No shortness of breath Cardiac: No chest pain Abdomen: No nausea, No pain, No vomiting Medications Current Inpatient Medications Medications (Trade) Dose Ordered Sig/Andrei Route Start Time Stop Time Status Last Admin Dose Admin Acetaminophen (Tylenol Tab) 650 mg Q4H PRN PO 07/02/16 00:45 08/01/16 00:44 Ondansetron HCl (Zofran Inj) 4 mg Q6H PRN IV 07/02/16 00:45 08/01/16 00:44 Aspirin (Ecotrin Tab) 81 mg DAILY PO 07/02/16 09:00 08/01/16 08:59 07/07/16 08:25 81 MG Carvedilol (Coreg Tab) 12.5 mg BID PO 07/02/16 09:00 08/01/16 08:59 07/07/16 08:24 12.5 MG Digoxin (Lanoxin Tab) 0.125 mg MoWeFr@1600 PO 07/04/16 16:00 08/03/16 15:59 07/06/16 17:08 0.125 MG Folic Acid (Folvite Tab) 1 mg DAILY PO 07/02/16 09:00 08/01/16 08:59 07/07/16 08:24 1 MG Furosemide (Lasix tab) 80 mg DAILY PO 07/02/16 09:00 08/01/16 08:59 07/07/16 08:24 80 MG Lisinopril (Zestril Tab) 2.5 mg HS PO 07/02/16 21:00 08/01/16 20:59 07/06/16 21:07 2.5 MG Meclizine HCl (Antivert Tab) 25 mg TID PRN PO 07/02/16 01:00 08/01/16 00:59 Multivitamins (Multivitamin Tab) 1 tab DAILY PO 07/02/16 09:00 08/01/16 08:59 07/07/16 08:25 1 TAB Nitroglycerin (Nitrostat Tab) 0.4 mg UD PRN SL 07/02/16 01:00 08/01/16 00:59 Calcium Carbonate (oS-Wilian 500 TAB) 1,250 mg DAILY PO 07/02/16 09:00 08/01/16 08:59 07/07/16 08:25 1,250 MG Prochlorperazine Maleate (Compazine Tab) 10 mg Q6 PRN PO 07/02/16 01:00 08/01/16 00:59 Warfarin Sodium (Coumadin Tab) 3 mg DAILY@1600 PO 07/02/16 16:00 08/01/16 15:59 07/06/16 17:08 3 MG Cholecalciferol (Vitamin D Tab) 5,000 inter.unit DAILY PO 07/02/16 09:00 08/01/16 08:59 07/07/16 08:25 5,000 INTER.UNIT Citalopram Hydrobromide (celeXA TAB) 20 mg DAILY PO 07/02/16 09:00 08/01/16 08:59 07/07/16 08:25 20 MG Pantoprazole Sodium (Protonix Tab) 40 mg QAM PO 07/02/16 09:00 08/01/16 08:59 07/07/16 08:27 40 MG Ranolazine (Ranexa ER Tab) 500 mg BID PO 07/02/16 09:00 08/01/16 08:59 07/07/16 08:24 500 MG Zinc Sulfate (Zinc Sulfate Cap) 220 mg BID PO 07/02/16 09:00 08/01/16 08:59 07/07/16 08:25 220 MG Acetazolamide (Diamox Tab) 250 mg BID PO 07/02/16 09:00 08/01/16 08:59 07/07/16 08:25 250 MG Miscellaneous Information (Consult Glycemic Management Pharmacy) 1 ea UD N/A 07/02/16 09:24 08/01/16 09:23 Insulin Aspart (novoLOG ASPART) SLIDING SCALE ACHS SC 07/02/16 11:00 08/01/16 10:59 07/07/16 08:19 2 UNITS Cefdinir (Omnicef Susp) 300 mg Q2D@1600 PO 07/04/16 16:00 07/10/16 23:59 07/06/16 17:08 300 MG Objective Vital Signs Date Time Temp Pulse Resp B/P Pulse Ox O2 Delivery O2 Flow Rate FiO2 07/07/16 07:23 36.6 62 18 114/65 100 Room Air 07/07/16 04:00 Room Air 07/07/16 03:25 36.7 88 18 122/68 99 Room Air 07/07/16 00:12 36.8 90 19 130/69 99 Room Air 07/07/16 00:00 Room Air 07/06/16 20:00 Room Air 07/06/16 19:31 36.6 89 18 101/61 98 Room Air 07/06/16 17:08 83 07/06/16 16:00 Room Air 07/06/16 15:29 36.7 88 18 108/65 100 Room Air 07/06/16 12:00 36.5 65 18 118/62 96 Room Air 07/06/16 12:00 95 Room Air 07/06/16 11:46 37.0 80 130/64 07/06/16 11:15 80 115/50 07/06/16 11:00 87 99/72 07/06/16 10:45 60 130/60 07/06/16 10:30 60 126/60 07/06/16 10:15 60 119/62 07/06/16 10:00 81 126/74 07/06/16 09:45 81 130/86 07/06/16 09:36 36.7 89 140/70 07/06/16 09:30 81 138/61 Physical Exam General Appearance: WD/WN, no apparent distress Eyes: normal inspection, PERRL, EOMI Neck: supple, no JVD, trachea midline Respiratory/Chest: normal breath sounds, no respiratory distress, no accessory muscle use Cardiovascular: regular rate, rhythm, no gallop, no murmur Abdomen: normal bowel sounds, non tender, soft Extremities: normal inspection, no pedal edema, no calf tenderness Neurologic/Psych: alert, normal mood/affect, oriented x 3 Skin: normal color, no jaundice, no rash Laboratory Results Last 24 Hours Test 07/07/16 06:10 Prothrombin Time 22.3 SECONDS Prothromb Time International Ratio 2.0 Assessment and Plan Patient is a 76 year old male seen for dysphagia, initially c/o food stuck in mid sternum area. Though he described actually having fullness and nausea in mid epigastric area which then causes him to cough or vomit out food. He has associated weight loss ? 100lbs within over a year. Last barium swallow in 1999 , w sign of small hiatal hernia, ring. Video swallow study and ST eval completed yesterday. Swallow study unremarkable w/o signs of aspiration; likely has mild oral pharyngeal dysphagia. He was recommended to be on slippery diet w aspiration precautions. Diet changed also to mechanical soft as he has poor dentition. He is able to tolerate breakfast well w/o s/s of coughing, chocking, nausea, vomiting, abd pain. Family also noted that when pt received Ativan for anxiety, he's able to eat better. Plans - Renal mechanical soft and slippery diet w aspiration precautions - If symptom continue especially the epigastric fullness and nausea, may consider obtaining gastric emptying study in outpt setting to r/o gastroparesis or short trial of Reglan. - GI will sign off; all if new questions or concerns arise. I performed a history and physical examination of the patient. I have discussed the patient's case, impression and plan with DIGNA Strauss. Her note reflects my findings and plan. No role for endoscopy currently. Jason Dvais MD
[2016-07-07] MEDS ORDERED: CFT250 PO ×2 (11:17→11:26)
--- NOTE | 2016-07-07 11:20 | Discharge Instructions ---
Discharge Instructions Admission Reason for Admission: Ams, Esrd On Peritoneal Dialysis, Uti Discharge Discharge Diagnosis / Problem: encephalopathy, UTI, Dysphagia Discharge Goals Goal(s): Decrease discomfort, Improve function Activity Recommendations Activity Limitations: resume your previous activity . Instructions / Follow-Up Instructions / Follow-Up FOLLOWUP WITH FAMILY DOCTOR ON Jun AT 3:10PM FOLLOWUP WITH COUMADIN CLINIC FOR COUMADIN DOSING. TO TAKE ANTIBIOTIC CEFUROXIME AFTER DIALYSIS ON DIALYSIS DAYS. Current Hospital Diet Patient's current hospital diet: Renal Diet Discharge Diet Recommended Diet: Diabetes Type 2 Diet, Renal Diet Diet Texture: Dental Soft (bite-sized) Pending Studies Studies pending at discharge: no Laboratory Results Hemoglobin A1c Test 05/27/16 05:50 Range/Units Estimated Average Glucose 111 mg/dl Hemoglobin A1c 5.5 4.5-5.6 % Medical Emergencies . Who to Call and When: Medical Emergencies: If at any time you feel your situation is an emergency, please call 911 immediately. . Non-Emergent Contact Non-Emergency issues call your: Primary Care Provider . . "Provider Documentation" section prepared by Nomi Perales. VTE Core Measure Inpt VTE Proph given/why not?: Warfarin (Coumadin)
[2016-07-07 11:49] VITALS: BP 134/73; PULSE 87; TEMP 36.6; O2SAT 100
[2016-07-07] MEDS ORDERED: INSDGIPEN SC (16:26)
[2016-07-07] MEDS ORDERED: INSU100I SC (16:26)
--- NOTE | 2016-07-07 16:27 | Progress Note ---
Internal Med Progress Note Date of Service: Jul 07, 2016. Provider Documentation: SUBJECTIVE: able to swallow food ok now denies any sob or cough afebrile want to go home OBJECTIVE: Vital Signs-as noted below Exam: General-alert and awake ENT-normal hearing Neck-no neck masses Lungs-cta b/l no wheezing or crackles Heart-s1 and s2 heard regular rate and rhythm no murmurs Abdomen-soft bowel sounds present non tender no distension Extremities-no erythema Neuro-alert and awake moves extremities Lab data as noted below. ASSESSMENT & PLAN: 76 yo M presented to the hospital and admitted for encephalopathy 2/2 UTI Metabolic Encephalopathy-resolved. Acute Cystitis-improved. Was on Rocephin switched to Omnicef PO on 07/04. discharged on cefuroxime to complete the course Ambulatory dysfunction with weakness--PT/OT recommends rehab.patient wants to go home.Discharged with home health Dysphagia- seen by GI recommends video swallow. speech consulted discharged on dental chopped and slippery diet ESRD: Holding PD and on HD while in hospital;, Nephro following. Fall at home with ecchymosis on LUE-on warfarin, no xrays needed at this time- hypoglycemia may be contributing to falls and confusion at home?Denying to go to rehab. DMII: Pharmacy managing-appreciate recs--hypoglycemia in am is improved. . 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 H/o prostate Ca with lung nodule-per [facility] note, patient doesn't want this worked up. Wound on heel with known PAD-plan for upcoming balloon angio to RLE soon once out of hospital--consulted wound care . PAD-outpatient plan as above,. 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 Followup with Coumadin clinic discharged with home health. Vital Signs: Date Time Temp Pulse Resp B/P Pulse Ox O2 Delivery O2 Flow Rate FiO2 07/07/16 11:49 36.6 87 16 134/73 100 Room Air 07/07/16 11:38 36.6 88 18 95 Room Air 07/07/16 08:00 95 Room Air 07/07/16 07:23 36.6 62 18 114/65 100 Room Air 07/07/16 04:00 Room Air 07/07/16 03:25 36.7 88 18 122/68 99 Room Air 07/07/16 00:12 36.8 90 19 130/69 99 Room Air 07/07/16 00:00 Room Air 07/06/16 20:00 Room Air 07/06/16 19:31 36.6 89 18 101/61 98 Room Air 07/06/16 17:08 83 Lab Results: Results Past 24 Hours Test 07/06/16 19:56 07/06/16 19:57 07/06/16 19:59 07/07/16 06:10 Range/Units Bedside Glucose 443 273 268 70-99 mg/dl Prothrombin Time 22.3 9.0-12.0 SECONDS Prothromb Time International Ratio 2.0 0.9-1.1 Test 07/07/16 06:30 Range/Units Bedside Glucose 150 70-99 mg/dl
--- NOTE | 2016-07-14 12:28 | Discharge Summary ---
Discharge Summary Admission Date: Jul 02, 2016 at 00:47 Discharge Date: Jul 07, 2016 Discharge Disposition: Home with services Principal Diagnosis: UTI ENCEPHALOPATHY AMBULATORY DYSFUNCTION DYSPHAGIA? Secondary Diagnoses/Problems: CAD s/p CABG in 2000, status post mitral and aortic valve replacement on anticoagulation, systolic heart failure, type 2 diabetes, chronic kidney disease on peritoneal dialysis, Anxiety disorder, atrial fibrillation, chronic back pain, hyperlipidemia, hypertension and vitamin D deficiency, Procedures: CT HEAD: There is no hemorrhage, mass effect, or evidence of acute territorial ischemia by CT criteria, and there has been no significant change from 05/26/2016. VIDEO SWALLOW: 1. Penetration but no evidence of aspiration when swallowing thin liquids. 2. Please see the speech pathologist report for detailed findings and recommendations. Consultations: Nephro GI Medication Reconciliation New Medications: Cefuroxime Axetil (Cefuroxime Axetil) 250 Mg Tab 750 MG PO DAILY for 3 Days, #9 Insulin Glargine (Lantus Solostar) 100 Unit/Ml Inj 10 UNITS SC QAM, #1 PEN Insulin Lispro (Human) (Humalog) 100 Unit/Ml Inj 0 SC ACHS, #1 insulin sliding scale gaol 110-140mg/dl correction factor: 1 unit insulin for every 40mg/dl above 140mg/dl blood glucose levels Continued Medications: Acetazolamide (Acetazolamide) 250 Mg Tab 250 MG PO BID Aspirin (Aspirin EC Low Dose) 81 Mg Ectab 81 MG PO DAILY Carvedilol (Coreg) 12.5 Mg Tab 12.5 MG PO BID, TAB Cholecalciferol (Vitamin D) 5,000 Unit Tab 5000 UNITS PO DAILY Citalopram Hydrobromide (Citalopram Hydrobromide) 10 Mg Tab 2 TAB PO DAILY for 90 Days Digoxin (Lanoxin) 0.125 Mg Tab 0.125 MG PO 3XWK, TAB TAKES ON MON, WED, FRI. Fish Oil ([place]-3) 1 Ea Cap 1 CAP PO DAILY, CAP Folic Acid (Folvite) 1 Mg Tab 1 MG PO DAILY, TAB Furosemide (Lasix) 40 Mg Tab 80 MG PO DAILY, TAB Lisinopril (Lisinopril) 2.5 Mg Tab 2.5 MG PO HS, TAB Meclizine Hcl (Meclizine Hcl) 25 Mg Tab 1 TAB PO TID PRN for Dizziness or Vertigo for 30 Days, #90 TAB Melatonin-Pyridoxine (Melatonin) 1 Tab Tab 1 TAB PO DAILY Multiple Vitamin (Multivitamin) 1 Tab Tab 1 TAB PO DAILY, TAB Nitroglycerin (Nitrostat) 0.4 Mg/1 Tab Subl 0.4 MG SL UD PRN for Chest Pain Omeprazole (Prilosec) 20 Mg Capcr 20 MG PO DAILY Oyster Shell (Calcium) 500 Mg Tab 500 MG PO DAILY Prochlorperazine Maleate (Compazine) 10 Mg Tab 1 TAB PO Q6 PRN for Nausea for 7 Days, #30 TAB 3 Refills Ranolazine (Ranexa) 500 Mg Tab 1 TAB PO BID for 30 Days, #60 TAB 3 Refills Warfarin Sodium (Coumadin) 3 Mg Tab 3 MG PO DAILY, TAB Zinc Gluconate (Zinc) 50 Mg Tab 50 MG PO BID Admission Information HPI (per Admitting provider): He is a 76-year-old male with significant complicated past medical history including CAD s/p CABG in 2000, status post mitral and aortic valve replacement on anticoagulation, systolic heart failure, type 2 diabetes, chronic kidney disease on peritoneal dialysis, Anxiety disorder, atrial fibrillation, chronic back pain, hyperlipidemia, hypertension and vitamin D deficiency, apparently has been complaining of weakness and lethargy for the last few days. He has been falling at home about 1-2 times a day without significant injury. He was evaluated by his primary care physician on of this month and his present medicine for depression was increased. He was admitted to [facility] from May 26 and May 29 for weakness and anemia. He received blood transfusion but at that time, he was advised to go to rehab, but he refused to go. Today, he denies any chest pain, any palpitations, any nausea or vomiting. He does not have any abdominal pain, but he mentions to have producing less urine with dysuria at times. No fever, chills or rigors and he has been getting progressive weakness with recurrent falls, but no significant injuries issues. Physical Exam (per Admitting): GENERAL: On examination in the Emergency Room, he was not having any acute distress. His confusion is almost resolved. VITAL SIGNS: Temperature 36.7, pulse was 79, blood pressure 107/37, saturation 100% on room air. HEENT: Unremarkable. NECK: Supple. No JVD, no bruit. CHEST: Decreased breath sounds with occasional crackles at the bases. HEART: S1, S2 regular with 2/6 systolic murmur over aortic area and precordium. ABDOMEN: Soft, benign, nontender, no organomegaly. Bowel sounds present. EXTREMITIES: Negative for any edema. He does have the ulcers on the right heel that has been healing, and he goes to wound clinic for that. CENTRAL NERVOUS SYSTEM: He is alert, awake, and generally weak, but no focal neuro deficit appreciated. Hospital Course 76 yo M presented to the hospital and admitted for encephalopathy 2/2 UTI Metabolic Encephalopathy-resolved. Acute Cystitis-improved. Was on Rocephin switched to Omnicef PO on 07/04. discharged on cefuroxime to complete the course Ambulatory dysfunction with weakness--PT/OT recommends rehab.patient wants to go home.Discharged with home health Dysphagia- seen by GI recommends video swallow. speech consulted discharged on dental chopped and slippery diet ESRD: Holding PD and on HD while in hospital;, Nephro following. Fall at home with ecchymosis on LUE-on warfarin, no xrays needed at this time- hypoglycemia may be contributing to falls and confusion at home?Denying to go to rehab. DMII: Pharmacy managing-appreciate recs--hypoglycemia in am is improved. . 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 H/o prostate Ca with lung nodule-per On[facility] note, patient doesn't want this worked up. Wound on heel with known PAD-plan for upcoming balloon angio to RLE soon once out of hospital--consulted wound care . PAD-outpatient plan as above,. 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 Followup with Coumadin clinic discharged with home health. Total time spent on discharge = 35MINUTES This includes examination of the patient, discharge planning, medication reconciliation, and communication with other providers. Discharge Instructions Please take this sheet to every appointment for the next month Discharge Instructions Admission Reason for Admission: Ams, Esrd On Peritoneal Dialysis, Uti Discharge Discharge Diagnosis / Problem: encephalopathy, UTI, Dysphagia Discharge Goals Goal(s): Decrease discomfort, Improve function Activity Recommendations Activity Limitations: resume your previous activity . Instructions / Follow-Up Instructions / Follow-Up FOLLOWUP WITH FAMILY DOCTOR ON Jun AT 3:10PM FOLLOWUP WITH COUMADIN CLINIC FOR COUMADIN DOSING. TO TAKE ANTIBIOTIC CEFUROXIME AFTER DIALYSIS ON DIALYSIS DAYS. Current Hospital Diet Patient's current hospital diet: Renal Diet Discharge Diet Recommended Diet: Diabetes Type 2 Diet, Renal Diet Diet Texture: Dental Soft (bite-sized) Pending Studies Studies pending at discharge: no Laboratory Results Hemoglobin A1c Test 05/27/16 05:50 Range/Units Estimated Average Glucose 111 mg/dl Hemoglobin A1c 5.5 4.5-5.6 % Medical Emergencies . Who to Call and When: Medical Emergencies: If at any time you feel your situation is an emergency, please call 911 immediately. . Non-Emergent Contact Non-Emergency issues call your: Primary Care Provider . . "Provider Documentation" section prepared by Nomi Perales. VTE Core Measure Inpt VTE Proph given/why not?: Warfarin (Coumadin)
[2016-07-29] MEDS ORDERED: CALC667C4 PO (13:07)
== END 2016-07-07 11:58 | disposition home health service (06) | DRG 689 ==
LOC: ENRESERVTM → ENRESERVDT → C.EDB 20:29 → C.2T 07-02 00:47
PROVIDERS: ADMIT Internal Medicine; ATTEND Internal Medicine
DX: N30.00 Acute cystitis without hematuria (principal); G93.41 Metabolic encephalopathy; N18.6 End stage renal disease; I13.2 Hypertensive heart and chronic kidney disease with heart failure and with stage 5 chronic kidney disease, or end stage renal disease; L97.409 Non-pressure chronic ulcer of unspecified heel and midfoot with unspecified severity; I50.22 Chronic systolic (congestive) heart failure; E55.9 Vitamin D deficiency, unspecified; I25.10 Atherosclerotic heart disease of native coronary artery without angina pectoris; Z95.1 Presence of aortocoronary bypass graft; Z95.2 Presence of prosthetic heart valve; E11.22 Type 2 diabetes mellitus with diabetic chronic kidney disease; F41.9 Anxiety disorder, unspecified; Z99.2 Dependence on renal dialysis; I48.91 Unspecified atrial fibrillation; E78.5 Hyperlipidemia, unspecified; Z85.46 Personal history of malignant neoplasm of prostate; G89.29 Other chronic pain; M54.9 Dorsalgia, unspecified; Z80.1 Family history of malignant neoplasm of trachea, bronchus and lung; Z83.3 Family history of diabetes mellitus; Z82.49 Family history of ischemic heart disease and other diseases of the circulatory system; Z79.4 Long term (current) use of insulin; Z79.82 Long term (current) use of aspirin; Z79.899 Other long term (current) drug therapy; Z79.01 Long term (current) use of anticoagulants; F32.9 Major depressive disorder, single episode, unspecified; R91.1 Solitary pulmonary nodule; D63.1 Anemia in chronic kidney disease; R13.10 Dysphagia, unspecified; Z86.010 Personal history of colon polyps; K44.9 Diaphragmatic hernia without obstruction or gangrene; R26.9 Unspecified abnormalities of gait and mobility; E11.649 Type 2 diabetes mellitus with hypoglycemia without coma; Z89.429 Acquired absence of other toe(s), unspecified side; Z90.79 Acquired absence of other genital organ(s); E11.621 Type 2 diabetes mellitus with foot ulcer; Z98.2 Presence of cerebrospinal fluid drainage device; Z91.81 History of falling; Z95.5 Presence of coronary angioplasty implant and graft; I87.2 Venous insufficiency (chronic) (peripheral); L89.610 Pressure ulcer of right heel, unstageable; L89.890 Pressure ulcer of other site, unstageable; I73.9 Peripheral vascular disease, unspecified

== ENCOUNTER 2016-08-03 07:27 | Observation (INO) | payer OTHER ==
[~2016-08-03] VITALS: Ht 177.8 cm; Wt 85.6 kg
[2016-08-03] VITALS (12 sets, daily range): BP systolic 97–152; BP diastolic 56–81; PULSE 58–87; TEMP 36–36.7; O2SAT 95–100; Ht 177.8 cm; Wt 85.6 kg
[~2016-08-03 07:27] MED LIST changes: +ACET-1325 PO; -ACET500C12 PO; +CALC667C4 PO; +CHOL1TAB42 PO; +CITA10TA4 PO; -CMD6 PO; -FLUO40CA8 PO; +INSDGIPEN SC; +INSU100I SC; -INSU100I17 SC; -INSU1INJ7 SC; +MELA3TAB12 PO; +OYST500T47 PO; +RANO500T PO; -RNXER500 PO; +SODIUM CHLORIDE 0.9% 1000ML 1,000 ML IV SCH; -VTMD1000 PO; +WARF3TAB PO; +ZINC1TAB PO
[2016-08-03 08:14] LABS: INR 1.2 (0.9-1.1); PARTIAL THROMBOPLASTIN RATIO 1.3; PROTHROMBIN TIME (PATIENT) 13.4 SECONDS (9.0-12.0)
[2016-08-03] MEDS ORDERED: CALC667C4 PO (08:31)
[2016-08-03] MEDS ORDERED: HEPARIN SOD (PORCINE) 1000 UNIT/ML 10 ML VIAL ONE (11:32)
[2016-08-03] MEDS ORDERED: NITROGLYCERIN 5 MG/ML 10 ML VIAL ONE (11:33)
[2016-08-03] MEDS ORDERED: MIDAZOLAM HCL 1 MG/ML 2ML VIAL ONE (11:33)
[2016-08-03] MEDS ORDERED: NiCARDipine HCL INJ 2.5 MG/ML 10 ML AMP ONE (11:33)
[2016-08-03] MEDS ORDERED: FENTANYL CITRATE INJ 50 MCG/1 ML 2 ML VIAL ONE (11:33)
--- NOTE | 2016-08-03 11:45 | Procedure Note ---
Pre-Mod Sedation Assessment General Date of Moderate Sedation: Aug 03, 2016. Vital Signs: Vital Signs Past 12 Hours Date Time Temp Pulse Resp B/P Pulse Ox O2 Delivery O2 Flow Rate FiO2 08/03/16 08:36 36.7 79 20 146/56 100 Room Air Review Cardiovascular: regular rate, rhythm, no edema, no JVD, + systolic murmur Abdomen: normal bowel sounds, non tender, soft Lungs: lungs clear, normal breath sounds, no respiratory distress Pre-Sedation Airway Assessment Oral Cavity: Dentures Able to Visualize Vocal Cords: No Short Thick Neck: No Hx of Sleep Apnea: No Smoking Status: Never Smoker Mallampati Classification: Class III ASA Classification: Class III Procedure Planning Contraindications-for Mod Sed: None Yes Notes The planned sedation has been discussed with the patient and consent obtained. I have identified the patient, determined the appropriateness of sedation and have assessed the patient immediately prior to the procedure. All medicine(s) and interventions are by my order.
--- NOTE | 2016-08-03 11:45 | History and Physical ---
History & Physical Date Aug 03, 2016. History of Present Illness The patient is a 76 year old male with complaints of non-healing wounds to right lower extremity. Complicated past medical history including: CAD s/p 5vCABG 2000, AVR (now on anticoagulation) with mitral valve repair, chronic ?systolic heart failure, ESRD on peritoneal dialysis, type 2 diabetes, prior GI bleeding, anemia and PAD s/p prior R Fem-pop bypass + multiple toe amputations. More recently has had a right heel ulceration, with wounds to 2nd and 3rd digits on right foot. Followed by wound clinic. Wounds healing poor. Past Medical/Surgical History Medical Problems: (1) Afib (2) Altered mental state (3) Anemia (4) Aortic stenosis (5) CAD (coronary artery disease) (6) CHF (congestive heart failure) (7) Depression (8) Dialysis patient (9) DM2 (diabetes mellitus, type 2) (10) ESRD (end stage renal disease) (11) ESRD on peritoneal dialysis (12) HLD (hyperlipidemia) (13) HTN (hypertension) (14) PAD (peripheral artery disease) (15) Prostate CA (16) Toe amputation status (17) UTI (urinary tract infection) (18) Weakness Surgical Problems: (1) H/O colonoscopy (2) H/O heart artery stent (3) H/O radical prostatectomy (4) H/O splenectomy (5) History of cataract surgery (6) History of dental surgery (7) S/P AVR (8) S/P CABG x 5 (9) S/P MVR (mitral valve repair) Additional History Hepatic Disease: No Endocrine Disorder: Yes Kidney Disease: Yes Hypertension: Yes Heart Disease: Yes Bleeding Tendencies: No Infectious Diseases: Yes Allergies Coded Allergies: No Known Allergies (Verified , 08/03/16) Home Medications Scheduled Acetazolamide (Acetazolamide), 250 MG PO BID Aspirin (Aspirin EC Low Dose), 81 MG PO DAILY Calcium Acetate (Phoslo 667 Mg), 1 CAP PO WM Carvedilol (Coreg), 12.5 MG PO BID Cholecalciferol (Vitamin D), 5,000 UNITS PO DAILY Citalopram Hydrobromide (Citalopram Hydrobromide), 2 TAB PO DAILY Digoxin (Lanoxin), 0.125 MG PO 3XWK Fish Oil ([place]-3), 1 CAP PO DAILY Folic Acid (Folvite), 1 MG PO DAILY Furosemide (Lasix), 80 MG PO DAILY Insulin Glargine (Lantus Solostar), 10 UNITS SC QAM Insulin Lispro (Human) (Humalog), 0 SC ACHS Lisinopril (Lisinopril), 2.5 MG PO HS Melatonin-Pyridoxine (Melatonin), 1 TAB PO DAILY Multiple Vitamin (Multivitamin), 1 TAB PO DAILY Omeprazole (Prilosec), 20 MG PO DAILY Oyster Shell (Calcium), 500 MG PO DAILY Ranolazine (Ranexa), 1 TAB PO BID Warfarin Sodium (Coumadin), 3 MG PO DAILY Zinc Gluconate (Zinc), 50 MG PO BID Scheduled PRN Meclizine Hcl (Meclizine Hcl), 1 TAB PO TID PRN for Dizziness or Vertigo Nitroglycerin (Nitrostat), 0.4 MG SL UD PRN for Chest Pain Prochlorperazine Maleate (Compazine), 1 TAB PO Q6 PRN for Nausea Physical Examination Skin: warm/dry Eyes: normal inspection Head: normocephalic Neck: supple, + pertinent finding (no JVC) Respiratory/Chest: lungs clear Cardiovascular: regular rate, rhythm, no edema, + systolic murmur Abdomen / GI: normal bowel sounds Extremities: + pertinent finding (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 Distal RLE pulses not palpable. Wounds covered) Neurologic/Psych: no motor/sensory deficits, alert Diagnosis Severe PAD ASA Classification: ASA Class III Plan of Treatment Proceed with bilateral angiogram and possible SIGN ERECTOR AND REPAIRER
[2016-08-03] MEDS ORDERED: NITROGLYCERIN/D5W 100MCG/ML 20ML SYR ONE (11:46)
[2016-08-03] MEDS ORDERED: VERSED IV ONE (12:20)
[2016-08-03] MEDS ORDERED: FENTANYL 50 MCG/ML IV ONE (12:20)
[2016-08-03] MEDS ORDERED: LIDOCAINE 1% (PF) INJ ONE (12:22)
[2016-08-03] MEDS ORDERED: HEPARIN SOD (PORCINE) 1000 UNIT/ML 10 ML VIAL IV ONE (12:46)
[2016-08-03] MEDS ORDERED: NURSING VERBAL MED ORDER ONE (14:15)
[2016-08-03] MEDS ORDERED: PROCHLORPERAZINE MALEATE 10 MG TAB PO PRN (15:00)
[2016-08-03] MEDS ORDERED: NITROGLYCERIN 0.4 MG SL PER TAB CHARGE SL PRN (15:00)
[2016-08-03] MEDS ORDERED: MECLIZINE HCL 25 MG TAB PO PRN (15:00)
[2016-08-03] MEDS ORDERED: ACETAMINOPHEN 325 MG TAB PO PRN (15:00)
--- NOTE | 2016-08-03 15:02 | Procedure Note ---
Post-Mod Sedation Assessment General Date of Moderate Sedation Aug 03, 2016. Vital Signs: Vital Signs Past 12 Hours Date Time Temp Pulse Resp B/P Pulse Ox O2 Delivery O2 Flow Rate FiO2 08/03/16 14:50 36.0 87 18 97/69 98 Room Air 08/03/16 08:36 36.7 79 20 146/56 100 Room Air Review - Discharge Criteria Vital Signs Stable: Yes Alert/Oriented/Conversant: Yes Returned to Baseline Mental St: Yes Nausea Absent/Minimal: Yes Pain/Discomfort/Absent/Minimal: Yes Normal/Baseline Respirations: Yes Active Bleeding?: No Pt Received D/C Instructions: N/A Prescriptions Given: None Specific Proced. D/C Criteria Distal Pulses Present (Cardiac: Yes Groin site assessed-Card Cath: Yes Voided Prior To Discharge: N/A Discharged Patients Adult Escort/Transportation: Yes
--- NOTE | 2016-08-03 15:40 | [facility] Operative Report ---
Operative Report Operative Date Aug 03, 2016. Pre-Operative Diagnosis PAD Post-Operative Diagnosis PAD Procedure(s) Performed Left common femoral access obtained via ultrasound guided access. RLE angiogram preformed with RIM catheter 6Fr 65cm destination sheath placed up and over using a stiff glide wire Attempted to wire approximately 6 cm complete occlusion from TPT into peroneal artery using 0.14 command, astato 20 and confianza wires. Unable to access distal vessel and procedure aborted. Minimal contrast extravasation from a small branch of TPT Distal Run-off unchanged. 100 cc of contrast used Manual compression for left RN ANESTHESIOLOGY closure Surgeon Dr. Serrano Structural Engineering Project Manager Surgeon(s) None Estimated Blood Loss 25 Findings Left lower extremity: Common iliac - Minimal disease External iliac - Minimal disease Internal iliac - Moderate focal disease, up to 50% stenosis RN ANESTHESIOLOGY - Minimal disease, calcified Profunda - Minimal disease SFA - Mild, diffuse, calcified atherosclerosis Popliteal - Mild, diffuse, calcified atherosclerosis TPT - Mild, diffuse, atherosclerosis AT - Sequential 90% lesions before proximal complete occlusion PT - Flush occlusion at take-off from TPT Peroneal - mild diffuse atherosclerosis to foot Right lower extremity: Common iliac - Minimal disease External iliac - Minimal disease Internal iliac - Mild to moderate focal stenosis RN ANESTHESIOLOGY - Minimal disease Profunda - Minimal disease SFA - Mild to moderate diffuse atherosclerosis, up to 50% in the midsegment. Patent distal SFA stent with 30-40% in-stent restenosis Popliteal- Mild, calcified atherosclerosis TPT - Occluded proximally after take-off of AT AT - 99% heavily calcified stenosis at ostium, complete occlusion proximally. Reconstitutes distally at ankle Peroneal - reconstitutes in the midsegment and is dominant vessel to foot providing collaterals to PT PT - occluded. Reconstitutes at the ankle. Summary: 1. Patent Right SFA stent with mild in-stent restenosis. 2. Occluded Right AT and TPT with distal reconstitution of mid peroneal and distal AT and PT 3. Sluggish single vessel distal runoff on left (peroneal artery) 4. Unsuccessful attempted RECREATION COUNSELOR of Right TPT/Peroneal arteries. Unable to wire successfully from above. Recommendations: Will monitor overnight with plan for discharge tomorrow AM Continue current wound management with wound center Plan for re-attempt to establish right lower extremity in-line flow via retrograde pedal access. Specimens None Drains None Anesthesia Moderate Complication(s) None Disposition Recovery Room / PACU Indications PAD/CLI I attest to the content of the Intraoperative Record and any orders documented therein. Any exceptions are noted below.
[2016-08-03] MEDS ORDERED: VISIPAQUE (IODIXANOL) INJ 270MG/ML INSTIL ONE (15:59)
[2016-08-03] MEDS: CALCIUM ACETATE 667MG GELCAP PO SCH ×2 (16:45→20:55)
[2016-08-03] MEDS ORDERED: CALCIUM ACETATE 667MG GELCAP PO SCH (16:45)
[2016-08-03] MEDS ORDERED: WARFARIN SOD 3 MG TAB PO SCH (17:00)
[2016-08-03] MEDS: CARVEDILOL 12.5 MG TAB PO SCH (20:55)
[2016-08-03] MEDS: AcetaZOLAMIDE 250 MG TAB PO SCH (20:56)
[2016-08-03] MEDS: RANOLAZINE 500 MG ER TAB PO SCH (20:57)
[2016-08-03] MEDS ORDERED: LISINOPRIL 2.5 MG TAB PO SCH (21:00)
[2016-08-04 03:55] VITALS: BP 134/72; PULSE 87; TEMP 36.8; O2SAT 98
[2016-08-04 07:06] LABS: INR 1.2 (0.9-1.1); PROTHROMBIN TIME (PATIENT) 13.4 SECONDS (9.0-12.0)
--- NOTE | 2016-08-04 07:28 | NEPHROLOGY CONSULTATION ---
DATE OF CONSULTATION: 08/04/2016 ATTENDING OF RECORD: Dr. Serrano. REASON FOR CONSULTATION: ESRD. HISTORY OF PRESENT ILLNESS: This is a 76-year-old male with significant history of both mitral and aortic valve replacements, diabetes, end-stage renal disease, on peritoneal dialysis with both the PD catheter as well as the fistula, who has coronary artery disease, status post CABG, as well as underlying atrial fibrillation and chronic depression. The patient has poor wound healing of his right heel and underwent a procedure to help improve blood flow, unsuccessful, minimal blood loss. The patient was kept overnight under observation to make sure no significant bleeding. The patient is comfortable with no complaints at this time. REVIEW OF SYSTEMS: CONSTITUTIONAL: No fevers or chills. Positive fatigue chronically. HEAD: No headaches. EYES: No blurry vision. NECK: Supple. PULMONARY: No significant shortness of breath. CARDIAC: No chest pain. GASTROINTESTINAL: No nausea or vomiting. GENITOURINARY: Positive urination. DERMATOLOGIC: No rash or itching. PSYCHIATRIC: The patient does suffer from depression. All other review of systems otherwise negative. PAST MEDICAL HISTORY: Coronary artery disease, status post CABG with both mitral and aortic valve replacements, as well as atrial fibrillation, type 2 diabetes, end-stage renal disease, on peritoneal dialysis, depression, chronic back pain, hypertension, hyperlipidemia, history of prostate cancer, as well as an incidental finding of a lung nodule where the patient refused further workup. PAST SURGICAL HISTORY: Fistula placements, multiple; PD catheter; radical prostatectomy; mitral and aortic valve replacements; amputation of the toe; cataract surgery. FAMILY HISTORY: Significant for father with lung cancer, brother with diabetes. SOCIAL HISTORY: , lives at home with . No alcohol, no drugs, no tobacco. CURRENT MEDICATIONS: Aspirin 81 mg daily, folic acid 1 mg daily, Lasix 80 mg daily, Lantus 10 units subcu daily, multivitamin daily, calcium 1250 p.o. daily, Celexa 20 mg daily, Protonix 40 mg daily, Diamox 250 mg p.o. b.i.d., Coreg 12.5 mg p.o. b.i.d., lisinopril 2.5 mg at night, Ranexa 500 mg p.o. b.i.d., Coumadin 3 mg p.o. daily, PhosLo 1 p.o. t.i.d. with meals. PHYSICAL EXAMINATION: VITAL SIGNS: Temperature 36.8, pulse 87, respiratory rate 16, blood pressure 134/72, satting 98% on room air. GENERAL: Awake, alert, oriented x3. EYES: No scleral icterus. ENT: Moist mucous membranes. NECK: Supple. PULMONARY: Clear to auscultation. CARDIAC: Regular rate and rhythm with 2/6 systolic murmur. ABDOMEN: Bowel sounds positive, soft, nontender, positive PD catheter in place. EXTREMITIES: No significant clubbing, cyanosis or edema. Does have wounds on the heels which are covered up. NEUROLOGICAL: Nonfocal. DERMATOLOGIC: Chronic wound healing of the feet. No rash noted. LABORATORY DATA: INR was 1.2 yesterday, it is pending for this morning. Glucoses have been good. ASSESSMENT AND PLAN: 1. End-stage renal disease. The patient did not get PD last night which is okay. Volume status seems appropriate. If the patient continues to stay tonight, we will do PD tonight; however, the patient possibly may be going home this morning if labs are stable and the patient continues to do well. 2. Anemia of renal failure. We will dose Procrit accordingly to keep the blood counts between 10-11 if he continues to stay. 3. Renal osteodystrophy. We will continue the patient's phosphate binders and calcium supplements and follow calcium phosphorus levels periodically throughout hospitalization. Overall, volume status appears appropriate and we will follow up with him next week in my PD clinic. I appreciate the consultation.
[2016-08-04 08:00] VITALS: BP 138/64; PULSE 60; TEMP 36.8; O2SAT 98
[2016-08-04] MEDS: CALCIUM ACETATE 667MG GELCAP PO SCH ×2 (08:39→12:26)
[2016-08-04] MEDS: AcetaZOLAMIDE 250 MG TAB PO SCH (08:40)
[2016-08-04] MEDS: CARVEDILOL 12.5 MG TAB PO SCH (08:40)
[2016-08-04] MEDS: RANOLAZINE 500 MG ER TAB PO SCH (08:40)
[2016-08-04] MEDS ORDERED: CITALOPRAM 20 MG TAB PO SCH (09:00)
[2016-08-04] MEDS ORDERED: INSULIN GLARGINE SOLOSTAR 100 UNITS/ML 3 ML PEN SC SCH (09:00)
[2016-08-04] MEDS ORDERED: CALCIUM CARBONATE 1250MG TAB PO SCH (09:00)
[2016-08-04] MEDS ORDERED: FUROSEMIDE 80 MG TAB PO SCH (09:00)
[2016-08-04] MEDS ORDERED: MULTIVITAMIN TAB PO SCH (09:00)
[2016-08-04] MEDS ORDERED: ASPIRIN 81 MG ECTAB PO SCH (09:00)
[2016-08-04] MEDS ORDERED: PANTOprazole SOD 40 MG TAB PO SCH (09:00)
[2016-08-04 11:40] VITALS: BP 123/64; PULSE 71; TEMP 36.8; O2SAT 98
--- NOTE | 2016-08-04 12:56 | Discharge Instructions ---
Discharge Instructions Procedure Procedure Date: Aug 04, 2016. Reason for Visit: Peripheral Vascular Disease. Discharge Discharge Date: Aug 04, 2016. Discharge Diagnosis: Peripheral artery disease, Poor healing wounds. Last Recorded Wt (Kilograms): 85.600 Anesthesia Post Anesthesia Instructions: Instructions Allergies: Coded Allergies: No Known Allergies (Verified , 08/03/16) Follow Up Additional Instructions: ACTIVITY RECOMMENDATIONS: It is common to feel weak and fatigue for a few days. * Do not drive or operate any motorized equipment for the next three days. * Limit stair usage (2 or 3 trips a day only) for the next three days. * Do not lift anything heavier than 10 pounds for the next three days. * Do not engage in vigorous exercise or any sports for the next five days. * You may shower the day after your procedure, but do not immerse the area for three days. Cleanse the site gently with soap and water. SPECIAL CARE INSTRUCTIONS: * You may replace the pressure dressing or band-aid the morning after the procedure. * After your procedure, it is normal to have a small bruise or small lump at the site. Examine your site daily for any change in the bruise or lump, redness, swelling, drainage or numbness. Notify your doctor if any change. BLEEDING: * If there is a small amount of bleeding at the site, lie down and apply firm pressure with a clean cloth for ten minutes. When the bleeding stops, lie quietly keeping the procedure limb straight for six hours. Notify your doctor as soon as possible. * If the bleeding does not stop after ten minutes or if there is a large amount of bleeding or spurting, call 911 immediately. Continue to lie down and hold firm pressure until help arrives. SKIN IRRITATION: * You may experience some redness and/or swelling in the area where radiation was administered. If any skin irritation occurs, please contact your family physician. FOLLOW UP VISIT: Keep any scheduled doctor appointments. Follow-up with: As scheduled Maximus Jensen Recommendations: Call your doctor if: * Temperature above 101 degrees * Pain not relieved by pain medicine ordered * There is increased drainage or redness from any incision * You have any unanswered questions or concerns. Your Doctors Instructions noted above were prepared by provider Indra Serrano. Patient Signature Section: Patient Instructions Signature Page Alphonso Grant Patient (or Guardian) Signature/Date: I have read and understand the instructions given to me by my caregivers. Caregiver/RN/Doctor Signature/Date: The above-named patient and/or guardian has received patient instructions on this date. + Original Patient Signature Page (only) stays with chart. Please make copy for patient.
[2016-08-04 13:01] VITALS: BP 123/64; PULSE 71; TEMP 36.8; O2SAT 98
--- NOTE | 2016-08-04 13:12 | Discharge Summary ---
Discharge Summary Admission Date: Aug 03, 2016 at 15:01 Discharge Date: Aug 04, 2016 Discharge Disposition: Home Principal Diagnosis: PAD/Critical limb ischemia Immunizations: Have You Had Influenza Vaccine: N/A History of Tetanus Vaccine?: Yes History of Pneumococcal: Yes History of Hepatitis B Vaccine: No Procedures: Bilateral lower extremity angiogram. Unsuccessful SUPERVISOR EDUCATION of tibioperoneal trunk/peroneal artery Consultations: Nephrology - Dr. Chowdhury Medication Reconciliation Continued Medications: Acetazolamide (Acetazolamide) 250 Mg Tab 250 MG PO BID Aspirin (Aspirin EC Low Dose) 81 Mg Ectab 81 MG PO DAILY Calcium Acetate (Phoslo 667 Mg) 667 Mg Cap 1 CAP PO WM, CAP Carvedilol (Coreg) 12.5 Mg Tab 12.5 MG PO BID, TAB Cholecalciferol (Vitamin D) 5,000 Unit Tab 5000 UNITS PO DAILY Citalopram Hydrobromide (Citalopram Hydrobromide) 10 Mg Tab 2 TAB PO DAILY for 90 Days Digoxin (Lanoxin) 0.125 Mg Tab 0.125 MG PO 3XWK, TAB TAKES ON MON, WED, FRI. Fish Oil ([place]-3) 1 Ea Cap 1 CAP PO DAILY, CAP Folic Acid (Folvite) 1 Mg Tab 1 MG PO DAILY, TAB Furosemide (Lasix) 40 Mg Tab 80 MG PO DAILY, TAB Insulin Glargine (Lantus Solostar) 100 Unit/Ml Inj 10 UNITS SC QAM, #1 PEN Insulin Lispro (Human) (Humalog) 100 Unit/Ml Inj 0 SC ACHS, #1 insulin sliding scale gaol 110-140mg/dl correction factor: 1 unit insulin for every 40mg/dl above 140mg/dl blood glucose levels Lisinopril (Lisinopril) 2.5 Mg Tab 2.5 MG PO HS, TAB Meclizine Hcl (Meclizine Hcl) 25 Mg Tab 1 TAB PO TID PRN for Dizziness or Vertigo for 30 Days, #90 TAB Melatonin-Pyridoxine (Melatonin) 1 Tab Tab 1 TAB PO DAILY Multiple Vitamin (Multivitamin) 1 Tab Tab 1 TAB PO DAILY, TAB Nitroglycerin (Nitrostat) 0.4 Mg/1 Tab Subl 0.4 MG SL UD PRN for Chest Pain Omeprazole (Prilosec) 20 Mg Capcr 20 MG PO DAILY Oyster Shell (Calcium) 500 Mg Tab 500 MG PO DAILY Prochlorperazine Maleate (Compazine) 10 Mg Tab 1 TAB PO Q6 PRN for Nausea for 7 Days, #30 TAB 3 Refills Ranolazine (Ranexa) 500 Mg Tab 1 TAB PO BID for 30 Days, #60 TAB 3 Refills Warfarin Sodium (Coumadin) 3 Mg Tab 3 MG PO DAILY, TAB Zinc Gluconate (Zinc) 50 Mg Tab 50 MG PO BID Discharge Exam General: comfortable, no acute distress HEENT: sclera anicteric, mucous membranes moist Neck: No lymphadenopathy, no thyromegaly Lungs: Clear to auscultation bilaterally Cardiac: Irregularly irregular, 2/6 systolic murmur at LUSB, no rubs or gallops. No Jugular venous distension Vascular: 2+ radial, 2+ femoral pulses. No palpable DP/PT pulses bilaterally. Right heel wound, 2/3 rd digit wounds dressed unchanged from prior. No significant bruising, hematoma or bruits at left femoral access site. Abd: Soft, non-tender, non-distended, +bowel sounds, no hepatosplenomegaly Ext: lukewarm, no edema Skin: no rashes Neuro: Cranial nerves grossly intact, remainder of exam non-focal Psych: Alert and oriented x3, appropriate Hospital Course Patient presented yesterday for bilateral lower extremity angiogram in the setting of severe peripheral artery disease suggested by lower extremity vascular ultrasound and critical limb ischemia. Angiogram preformed via left common femoral artery. Noted to have severe bilateral tibial disease with poor distal runoff. RLE showed occluded TPT and proximal AT. Peroneal reconstituted in the mid segment and provided distal collaterals to the AT and PT which reconstituted at the ankle. Attempts to pass a wire across TPT occlusion into peroneal were unsuccessful despite wire escalation and procedure aborted. No significant complications. Patient kept overnight for observation in the setting of his co-morbidities and need for manual hold. No events overnight. Feeling well the AM of discharge. Telemetry unremarkable. Seen by nephrology with plan for peritoneal dialysis today. He will follow-up with the wound clinic and will plan to see patient sometime in the next 1-2 weeks to discuss repeat attempt retrograde via pedal access. Total Time Spent: Less than 30 minutes This includes examination of the patient, discharge planning, medication reconciliation, and communication with other providers. Discharge Instructions Please refer to the electronic Patient Visit Report (Discharge Instructions) for additional information.
[2016-08-31] MEDS ORDERED: POTA-74 PO (11:32)
[2016-08-31] MEDS ORDERED: AMX250 PO (11:33)
[2016-08-31] MEDS ORDERED: RFM300 PO (11:33)
[2016-08-31] MEDS ORDERED: ULT50X PO (11:33)
[2016-08-31] MEDS ORDERED: CEFT1INJ57 IV (11:33)
== END 2016-08-04 14:00 | disposition home or self-care (01) ==
LOC: C.ACU 07:27 → C.2T 15:01
PROVIDERS: ADMIT Internal Medicine Interventional Cardiology; ATTEND Internal Medicine Interventional Cardiology
DX: I73.9 Peripheral vascular disease, unspecified (principal); N18.6 End stage renal disease; D63.1 Anemia in chronic kidney disease; I48.91 Unspecified atrial fibrillation; N25.0 Renal osteodystrophy; I25.10 Atherosclerotic heart disease of native coronary artery without angina pectoris; E78.5 Hyperlipidemia, unspecified; E11.9 Type 2 diabetes mellitus without complications; I12.0 Hypertensive chronic kidney disease with stage 5 chronic kidney disease or end stage renal disease; Z99.2 Dependence on renal dialysis; Z95.2 Presence of prosthetic heart valve; Z95.1 Presence of aortocoronary bypass graft; Z89.429 Acquired absence of other toe(s), unspecified side; Z79.01 Long term (current) use of anticoagulants; Z79.82 Long term (current) use of aspirin; Z79.4 Long term (current) use of insulin; Z85.46 Personal history of malignant neoplasm of prostate; Z90.79 Acquired absence of other genital organ(s); Z87.440 Personal history of urinary (tract) infections; Z80.1 Family history of malignant neoplasm of trachea, bronchus and lung; Z83.3 Family history of diabetes mellitus

== ENCOUNTER 2016-08-14 17:52 | Inpatient (IN) | payer OTHER ==
[~2016-08-14] VITALS: Ht 175.3 cm; Wt 85.0 kg
[~2016-08-14 17:52] MED LIST changes: -CFT250 PO; -SODIUM CHLORIDE 0.9% 1000ML 1,000 ML IV SCH
--- NOTE | 2016-08-14 20:00 | DIAGNOSTIC IMAGING REPORT ---
ADDENDUM Addendum: Comparison is made to right foot radiographs of May 26, 2016. The 1.3 cm ossific/calcific density which projects superior to the posterior calcaneus is new since that exam. There is soft tissue irregularity posterior to the calcaneus. There is relative lucency of the posterior superior calcaneus. These findings represent an interval change and may reflect an infectious process such as osteomyelitis. Electronically signed by: Ahsan Choi M.D. 08/14/2016 8:02 PM Dictated Date/Time: 08/14/2016 8:00 PM ORIGINAL REPORT RIGHT TIBIA/FIBULA 2 VIEWS ROUTINE CLINICAL HISTORY: Right leg pain. COMPARISON: None FINDINGS: There is extensive vascular calcification. There are surgical clips. No fracture within the right tibia or fibula is identified. There is calcification which projects of the distal Achilles which is probably old. There is cortical thickening of the mid shaft of the right tibia. IMPRESSION: 1. No acute fracture of the right tibia or fibula. 2. Soft tissue calcification which projects over the distal Achilles. This is age indeterminate although probably old. Electronically signed by: Ahsan Choi M.D. 08/14/2016 7:59 PM Dictated Date/Time: 08/14/2016 7:54 PM
--- NOTE | 2016-08-14 20:05 | DIAGNOSTIC IMAGING REPORT ---
RIGHT FOOT MIN 3 VIEWS ROUTINE CLINICAL HISTORY: Right foot pain. COMPARISON: Right foot radiographs May 26, 2016. FINDINGS: There are post surgical changes consistent with amputation at the level the distal right first metatarsal. The postoperative appearance is unchanged since exam of May 26, 2016. The toes are difficult to evaluate due to chronic deformity. No definite change within the toes is noted since prior exam. Several ossific/calcific densities are noted superior to the posterior calcaneus with change in appearance of the posterior superior calcaneus since exam of May 26, 2016. There is associated soft tissue irregularity. IMPRESSION: Several ossific/calcific densities superior to the posterior calcaneus with apparent relative lucency of this portion of the calcaneus, new findings since exam of May 26, 2016. While nonspecific, the findings could reflect an infectious process such as osteomyelitis Electronically signed by: Ahsan Choi M.D. 08/14/2016 8:04 PM Dictated Date/Time: 08/14/2016 7:59 PM
--- NOTE | 2016-08-14 22:33 | DIAGNOSTIC IMAGING REPORT ---
MRI OF THE RIGHT ANKLE WITHOUT CONTRAST CLINICAL HISTORY: Right ankle pain. Evaluate for ruptured Achilles tendon. Open sores. COMPARISON STUDY: Right foot radiographs May 26, 2016 and August 14, 2016. TECHNIQUE: Utilizing a 1.5 Madelin magnet and dedicated coil, multiplanar, multi echo imaging of the right ankle was performed without IV contrast. FINDINGS: There is a complete tear of the distal Achilles tendon at its insertion. The Achilles is retracted by approximately 3 cm. The tendon itself appears unremarkable without evidence for significant tendinopathy. Of note, there is a soft tissue defect consistent with a wound overlying the posterior calcaneus. There is a moderate increased T2 signal and diminished T1 signal within the posterior aspect of the calcaneus. There is evidence for bone loss within the posterior aspect of the calcaneus, best shown on the axial images. This study is compromised by motion artifact. Plantar fascia is intact although there is thickening of the proximal plantar fascia. Talar dome is intact. Intrinsic ligaments of the right ankle are suboptimally assessed on this examination. Visualized portions of the flexor, extensor and peroneal tendons appear intact. IMPRESSION: 1. Rupture of the distal Achilles tendon at its insertion with 3 cm of tendon retraction. 2. Wound overlying the posterior calcaneus with abnormal marrow signal within the posterior calcaneus and associated bone loss. The osseous findings raise the possibility of osteomyelitis which may have predisposed to Achilles rupture. A posttraumatic etiology could appear similar although is considered somewhat less likely. Clinical correlation for evidence of osteomyelitis is recommended. Electronically signed by: Ahsan Choi M.D. 08/14/2016 10:31 PM Dictated Date/Time: 08/14/2016 10:24 PM
--- NOTE | 2016-08-14 22:34 | DIAGNOSTIC IMAGING REPORT ---
RIGHT LOWER EXTREMITY VENOUS DOPPLER CLINICAL HISTORY: Right foot pain. Wound. COMPARISON STUDY: No previous studies for comparison. TECHNIQUE: Sonography of the deep venous system of the right lower extremity was performed. Compression and augmentation were evaluated. FINDINGS: The right common femoral, superficial femoral and popliteal veins were compressible. Augmentation was normal. Flow was shown within the deep calf vessels. A few morphologically benign right inguinal lymph nodes were noted. There was soft tissue swelling and edema of the right lower extremity. IMPRESSION: No evidence of deep venous thrombus within the right lower extremity. Electronically signed by: Ahsan Choi M.D. 08/14/2016 10:33 PM Dictated Date/Time: 08/14/2016 10:32 PM
[2016-08-14 22:46] LABS: HEMATOCRIT 27.1 % (42-52); MEAN CELL VOLUME 103.8 fL (80-100); MEAN CORPUSCULAR HGB CONC 31.7 g/dl (32-36); MEAN PLATELET VOLUME 9.4 fL (7.4-10.4); PLATELET COUNT 236 K/uL (130-400); RED BLOOD COUNT 2.61 M/uL (4.7-6.1)
[2016-08-14 23:03] LABS: BUN/CREATININE RATIO 12.3 (10-20); C-REACTIVE PROTEIN 9.16 mg/dl (0-0.29); CALCIUM 8.1 mg/dl (8.5-10.1); CREATININE 3.4 mg/dl (0.60-1.40); POTASSIUM 3.4 mmol/L (3.5-5.1)
[2016-08-14 23:52] LABS: BASO % 0.3 %; BASO ABS # 0.06 K/uL (0-0.2); COMPLETE YES; EOS % 1.1 %; IG% 0.5 %; LYMPH % 13.2 %; LYMPH ABS # 2.58 K/uL (1.2-3.4); NEUT % 74.9 %; POLYCHROMASIA 1+
[2016-08-15] VITALS (7 sets, daily range): BP systolic 97–127; BP diastolic 58–74; PULSE 56–89; TEMP 36.4–37.2; O2SAT 93–99; Ht 175.3 cm; Wt 85.0 kg
[2016-08-15] MEDS ORDERED: PIPERACILL/TAZOBAC IV 4.5 GM in DEXTROSE 5% 100ML 100 ML IV SCH ×2
[2016-08-15] MEDS ORDERED: ACETAMINOPHEN 325 MG TAB PO PRN (00:15)
[2016-08-15] MEDS ORDERED: HEPARIN SOD 5000 UNIT/0.5 ML CARP SQ SCH (00:15)
[2016-08-15] MEDS ORDERED: ONDANSETRON INJ 2 MG/ML 2 ML VIAL IV PRN (00:15)
[2016-08-15] MEDS ORDERED: GLUCAGON FOR INJ 1 MG VIAL SQ PRN (00:15)
[2016-08-15] MEDS ORDERED: POLYETHYLENE (MIRALAX) 17 GM PACK PO PRN (00:15)
[2016-08-15] MEDS ORDERED: DEXTROSE 50% 50 ML SYR IV PRN (00:15)
[2016-08-15] MEDS ORDERED: GLUCOSE 10 TABS/TUBE PO PRN (00:15)
[2016-08-15] MEDS ORDERED: GLUCOSE 40% GEL 15 GM TUBE PO PRN (00:15)
--- NOTE | 2016-08-15 01:43 | History and Physical ---
History & Physical Date & Time of Service: Aug 15, 2016 at 01:09 Chief Complaint: Foot Pain, Open Sores Primary Care Physician: Letha Obregon M.D. History of Present Illness Source: patient, family 76 yo diabetic male with a chronic heel wound on his R leg presents with R leg pain after a R Achilles heel rupture earlier today. This occurred when he went to stand up out of his recliner and made a turn to walk but his R foot stayed in place. He was unable to walk as a result. The patient recently underwent a vascular procedure on the R leg just one week ago for severe PAD and had 3 stents placed. He also has a chronic heel wound for which he is followed at the wound clinic regularly and states that his wound has been debrided two days ago with subsequent bleeding more than usual. He has diabetes, renal disease on peritoneal dialysis at home, aortic stenosis and heart disease along with multiple other chronic medical problems. He denies any fevers, chills, chest pain, shortness of breath, pain in his leg at rest, nausea, vomiting or diarrhea. He reports a dry cough for the past month. In the ER, an MRI was performed revealing evidence of osteomyelitis of the right foot. This has been a problem in the past for him and he has multiple toe amputations present on exam. 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 Status: Chronic Surgical Problems: (1) H/O colonoscopy Status: Chronic (2) H/O heart artery stent Status: Resolved (3) H/O radical prostatectomy Status: Chronic (4) H/O splenectomy Status: Resolved (5) History of cataract surgery Status: Chronic (6) History of dental surgery Status: Chronic (7) S/P AVR Permanent Comment: bioprosthetic Status: Chronic (8) S/P CABG x 5 Status: Chronic (9) S/P MVR (mitral valve repair) Permanent Comment: bioprosthetic Status: Chronic Family History Diabetes mellitus BROTHER FH: CAD (coronary artery disease) MOTHER BROTHER SISTER FH: lung cancer FATHER Social History Smoking Status: Never Smoker Smokeless Tobacco Use: No Alcohol Use: none Drug Use: none Marital Status: Housing status: lives with significant other Occupational Status: retired, disabled Immunizations History of Influenza Vaccine: Yes Influenza Vaccine Date: Mar 19, 2016 History of Tetanus Vaccine?: Yes Tetanus Immunization Date: Feb 11, 2008 History of Pneumococcal: Yes Pneumococcal Date: Dec 05, 2014 History of Hepatitis B Vaccine: No Multi-Drug Resistant Organisms History of MDRO: No Allergies Coded Allergies: No Known Allergies (Verified , 08/14/16) Home Medications Scheduled Acetazolamide (Acetazolamide), 250 MG PO BID Aspirin (Aspirin EC Low Dose), 81 MG PO DAILY Calcium Acetate (Phoslo 667 Mg), 1 CAP PO WM Carvedilol (Coreg), 12.5 MG PO BID Cholecalciferol (D3-1000), 1,000 UNITS PO DAILY Citalopram Hydrobromide (Citalopram Hydrobromide), 2 TAB PO DAILY Digoxin (Lanoxin), 0.125 MG PO 3XWK Fish Oil ([place]-3), 1 CAP PO DAILY Folic Acid (Folvite), 1 MG PO DAILY Furosemide (Lasix), 80 MG PO DAILY Insulin Glargine (Lantus Solostar), 10 UNITS SC QAM Insulin Lispro (Human) (Humalog), 0 SC ACHS Lisinopril (Lisinopril), 2.5 MG PO HS Melatonin-Pyridoxine (Melatonin), 1 TAB PO DAILY Multiple Vitamin (Multivitamin), 1 TAB PO DAILY Omeprazole (Prilosec), 20 MG PO DAILY Oyster Shell (Calcium), 500 MG PO DAILY Ranolazine (Ranexa), 1 TAB PO BID Warfarin Sodium (Coumadin), 3 MG PO DAILY Zinc Gluconate (Zinc), 50 MG PO BID Scheduled PRN Meclizine Hcl (Meclizine Hcl), 1 TAB PO TID PRN for Dizziness or Vertigo Nitroglycerin (Nitrostat), 0.4 MG SL UD PRN for Chest Pain Prochlorperazine Maleate (Compazine), 1 TAB PO Q6 PRN for Nausea Review of Systems All systems reviewed and negative except as indicated in HPI Physical Exam Vital Signs Date Time Temp Pulse Resp B/P Pulse Ox O2 Delivery O2 Flow Rate FiO2 08/14/16 23:08 64 18 137/60 100 Room Air 08/14/16 19:48 61 20 115/75 98 Room Air 08/14/16 17:48 36.8 65 20 115/75 100 Room Air GEN: WNWD, in no acute distress, alert and appropriate HEENT: NC/AT, PERRL, normal sclerae, mucous membranes are dry, poor dentition CARDIO: reg rate, S1/2 heard, 3/6 JACEK heard at LSB LUNGS: CTA bilaterally, no crackles, rales or wheezes, good diaphragmatic excursion ABD: soft, non-tender, non-distended, no rebound or guarding, +BS EXTREMITY: RP and DP palpable 2+ bilat, no LE swelling or edema, extremities are warm and well-perfused L foot: middle toe in bandaged with dressing C/D/I R foot: R heel wound with granulation tissue and dark tissue that appears to be eschar-some drainage that is foul smelling, no surrounding cellulitis NEURO: CN 2-12 grossly intact, sensation intact grossly throughout MUSC: 5/5 strength in UEs, limited exam in LEs 2/2 pain with movement. SKIN: warm and dry and wounds as above. Diagnostics Laboratory Results Results Past 24 Hours Test 08/14/16 22:35 Range/Units White Blood Count 19.60 4.8-10.8 K/uL Red Blood Count 2.61 4.7-6.1 M/uL Hemoglobin 8.6 14.0-18.0 g/dL Hematocrit 27.1 42-52 % Mean Corpuscular Volume 103.8 80-100 fL Mean Corpuscular Hemoglobin 33.0 25-34 pg Mean Corpuscular Hemoglobin Concent 31.7 32-36 g/dl Platelet Count 236 130-400 K/uL Mean Platelet Volume 9.4 7.4-10.4 fL Neutrophils (%) (Auto) 74.9 % Lymphocytes (%) (Auto) 13.2 % Monocytes (%) (Auto) 10.0 % Eosinophils (%) (Auto) 1.1 % Basophils (%) (Auto) 0.3 % Neutrophils # (Auto) 14.70 1.4-6.5 K/uL Lymphocytes # (Auto) 2.58 1.2-3.4 K/uL Monocytes # (Auto) 1.96 0.11-0.59 K/uL Eosinophils # (Auto) 0.21 0-0.5 K/uL Basophils # (Auto) 0.06 0-0.2 K/uL RDW Standard Deviation 60.8 36.4-46.3 fL RDW Coefficient of Variation 16.2 11.5-14.5 % Immature Granulocyte % (Auto) 0.5 % Immature Granulocyte # (Auto) 0.09 0.00-0.02 K/uL Polychromasia 1+ Erythrocyte Sedimentation Rate 31 0-14 mm/hr Sodium Level 137 136-145 mmol/L Potassium Level 3.4 3.5-5.1 mmol/L Chloride Level 102 98-107 mmol/L Carbon Dioxide Level 27 21-32 mmol/L Anion Gap 8.0 3-11 mmol/L Blood Urea Nitrogen 42 7-18 mg/dl Creatinine 3.40 0.60-1.40 mg/dl Est Creatinine Clear Calc Drug Dose 19.8 ml/min Estimated GFR () 19.2 Estimated GFR (Non- 16.6 BUN/Creatinine Ratio 12.3 10-20 Random Glucose 112 70-99 mg/dl Calcium Level 8.1 8.5-10.1 mg/dl C-Reactive Protein 9.16 0-0.29 mg/dl Diagnostic Radiology R FOOT XRAY-3 VIEWS: Several ossific/calcific densities superior to the posterior calcaneus with apparent relative lucency of this portion of the calcaneus, new findings since exam of May 26, 2016. While nonspecific, the findings could reflect an infectious process such as osteomyelitis MRI RLE: IMPRESSION: 1. Rupture of the distal Achilles tendon at its insertion with 3 cm of tendon retraction. 2. Wound overlying the posterior calcaneus with abnormal marrow signal within the posterior calcaneus and associated bone loss. The osseous findings raise the possibility of osteomyelitis which may have predisposed to Achilles rupture. A posttraumatic etiology could appear similar although is considered somewhat less likely. Clinical correlation for evidence of osteomyelitis is recommended. RLE US: IMPRESSION: No evidence of deep venous thrombus within the right lower extremity. RIGHT TIBIA/FIBULA 2 VIEWS ROUTINE IMPRESSION: 1. No acute fracture of the right tibia or fibula. 2. Soft tissue calcification which projects over the distal Achilles. This is age indeterminate although probably old. Addendum: Comparison is made to right foot radiographs of May 26, 2016. The 1.3 cm ossific/calcific density which projects superior to the posterior calcaneus is new since that exam. There is soft tissue irregularity posterior to the calcaneus. There is relative lucency of the posterior superior calcaneus. These findings represent an interval change and may reflect an infectious process such as osteomyelitis. CXR-pending EKG EKG pending Impression Assessment and Plan 76 yoM with multiple comorbidities presents after trauma to R heel causing acute Achilles tendon rupture in addition to a chronic diabetic foot ulcer with evidence of osteomyelitis present. 1. Diabetic foot ulcer- apparent osteo infection seen on MRI. Dapto/Zosyn started. Pt has a leukocytosis but is hemodynamically stable and afebrile. h/ o osteo in the past with several toe amputations. ID and Ortho consult placed. Wound care consult placed. Pending wound GS and culture . Trend ESR/CRP. 2. Acute Achilles tendon rupture- bedrest, consult Ortho. Supportive care with pain control. PT/OT consult should be placed when patient is clinically improved. 3. ESRD on peritoneal dialysis-consulted Nephrology for assistance with continuing this while inpatient, Nephro aware. 4. Severe PAD-s/p recent vascular intervention last week s/p 3 stents placed. 5. DMII-ISS/Lantus, glycemic pharmacy consult placed 6. Valvular disorders s/p mitral and aortic valve replacements-on coumadin 7. Atrial fibrillation-on coumadin with Coreg and dig for rate control. 8. Chronic systolic heart failure-compensated, cont medical management 9. CAD s/p CABG-stable, cont medical management of CAD 10. h/o prostate cancer 11. Depression-cont Celexa 12. Hypokalemia-replace PO, recheck in am. Pt is on daily peritoneal dialysis as above. 13. Leukocytosis 2/2 #1 (likely osteo infection) 14. Anemia-likely multifactorial but 2/2 mainly to ESRD. Stable, no indication for acute transfusion at this time. DVT proph-heparin 5K SQ q8 FULL CODE Dispo-to Med/Surg floor Lauren Hernandez DO [facility] Hospitalist. Level of Care Med/Surg Resuscitation Status FULL RESUSCITATION VTE Prophylaxis VTE Risk Assessment Done? Y/N: Yes Risk Level: Moderate Given or contraindicated: Unfractionated heparin SQ
[2016-08-15] MEDS ORDERED: POTASSIUM CHLORIDE 10 MEQ TABCR PO STA (01:44)
[2016-08-15] MEDS ORDERED: CHOL1CAP93 PO (02:00)
[2016-08-15] MEDS ORDERED: PHARMACY GLYCEMIC MGMT CONSULT PRN (02:18)
[2016-08-15] MEDS ORDERED: DAPTOmycin IV 525 MG in SODIUM CHLORIDE 0.9% 50ML 50 ML IV STA (02:19)
--- NOTE | 2016-08-15 02:28 | EMERGENCY ROOM VISIT NOTE ---
History Report prepared by Jourdan: Lucas Donald Under the Supervision of: Dr. Joe Maldonado D.O. First contact with patient: 19:11 Chief Complaint: FOOT PAIN Stated Complaint: FOOT PAIN, OPEN SORES History of Present Illness The patient is a 76 year old male who presents to the Emergency Room with complaints of constant right leg pain beginning yesterday. Per , the patient stood up and heard a "crack" in his right lower leg yesterday, and has not been able to bear weight on that leg ever since. She notes that he has wounds on his feet which have been bleeding a lot recently. Nothing has improved his pain. The patient is on Coumadin. He has a history of diabetes. The patient's states that the patient has been following up closely with the wound clinic for a ulceration on his right heel and was seen most recently two days ago. She states that the patient had his INR checked four days ago by a home-health nurse, but that she never told them of the results. Source of History: patient, spouse/significant other () Onset: Yesterday Position: leg (right) Timing: constant Modifying Factors (Relieving): other (none) Review of Systems See HPI for pertinent positives & negatives. A total of 10 systems reviewed and were otherwise negative. Past Medical & Surgical Medical Problems: (1) Afib (2) Altered mental state (3) Anemia (4) Aortic stenosis (5) CAD (coronary artery disease) (6) CHF (congestive heart failure) (7) Depression (8) Dialysis patient (9) DM2 (diabetes mellitus, type 2) (10) ESRD (end stage renal disease) (11) ESRD on peritoneal dialysis (12) HLD (hyperlipidemia) (13) HTN (hypertension) (14) Osteomyelitis (15) PAD (peripheral artery disease) (16) Prostate CA (17) Toe amputation status (18) UTI (urinary tract infection) (19) Weakness Surgical Problems: (1) H/O colonoscopy (2) H/O heart artery stent (3) H/O radical prostatectomy (4) H/O splenectomy (5) History of cataract surgery (6) History of dental surgery (7) S/P AVR (8) S/P CABG x 5 (9) S/P MVR (mitral valve repair) Family History Diabetes mellitus BROTHER FH: CAD (coronary artery disease) MOTHER BROTHER SISTER FH: lung cancer FATHER Social History Smoking Status: Never Smoker Drug Use: none Marital Status: Occupation Status: retired, disabled Current/Historical Medications Scheduled Acetazolamide (Acetazolamide), 250 MG PO BID Aspirin (Aspirin EC Low Dose), 81 MG PO DAILY Calcium Acetate (Phoslo 667 Mg), 1 CAP PO WM Carvedilol (Coreg), 12.5 MG PO BID Cholecalciferol (D3-1000), 1,000 UNITS PO DAILY Citalopram Hydrobromide (Citalopram Hydrobromide), 2 TAB PO DAILY Digoxin (Lanoxin), 0.125 MG PO 3XWK Fish Oil (Clymer-3), 1 CAP PO DAILY Folic Acid (Folvite), 1 MG PO DAILY Furosemide (Lasix), 80 MG PO DAILY Insulin Glargine (Lantus Solostar), 10 UNITS SC QAM Insulin Lispro (Human) (Humalog), 0 SC ACHS Lisinopril (Lisinopril), 2.5 MG PO HS Melatonin-Pyridoxine (Melatonin), 1 TAB PO DAILY Multiple Vitamin (Multivitamin), 1 TAB PO DAILY Omeprazole (Prilosec), 20 MG PO DAILY Oyster Shell (Calcium), 500 MG PO DAILY Ranolazine (Ranexa), 1 TAB PO BID Warfarin Sodium (Coumadin), 3 MG PO DAILY Zinc Gluconate (Zinc), 50 MG PO BID Scheduled PRN Meclizine Hcl (Meclizine Hcl), 1 TAB PO TID PRN for Dizziness or Vertigo Nitroglycerin (Nitrostat), 0.4 MG SL UD PRN for Chest Pain Prochlorperazine Maleate (Compazine), 1 TAB PO Q6 PRN for Nausea Allergies Coded Allergies: No Known Allergies (Verified , 08/14/16) Physical Exam Vital Signs Date Time Temp Pulse Resp B/P Pulse Ox O2 Delivery O2 Flow Rate FiO2 08/14/16 23:08 64 18 137/60 100 Room Air 08/14/16 19:48 61 20 115/75 98 Room Air 08/14/16 17:48 36.8 65 20 115/75 100 Room Air Physical Exam CONSTITUTIONAL/VITAL SIGNS: Reviewed / noted above. GENERAL: Non-toxic in appearance. INTEGUMENTARY: Warm, dry, and [place]. HEAD: Normocephalic. EYES: without scleral icterus or trauma. ENT/OROPHARYNX: clear and moist. LYMPHADENOPATHY/NECK: Is supple without lymphadenopathy or meningismus. RESPIRATORY: Lungs clear and equal. CARDIOVASCULAR: Regular rate and rhythm. GI/ABDOMEN: Soft and nontender. No organomegaly or pulsatile mass. No rebound or guarding. Normal bowel sounds. EXTREMITIES: Edema to the right lower extremity with tenderness in the right calf and Achilles area. There is eschar on the right heel that appears to have been recently debrided without evidence for active infection or bleeding. Chronic amputations of bilateral toes. BACK: No CVA tenderness. NEUROLOGICAL: Intact without focal deficits. PSYCHIATRIC: normal affect. MUSCULOSKELETAL: Normally developed with good muscle tone. Medical Decision & Procedures ER Provider Diagnostic Interpretation: X ray results and stated below per my interpretation and radiologist interpretation. Other radiology results and stated below per my review and radiologist interpretation: RIGHT FOOT MIN 3 VIEWS ROUTINE FINDINGS: There are post surgical changes consistent with amputation at the level the distal right first metatarsal. The postoperative appearance is unchanged since exam of May 26, 2016. The toes are difficult to evaluate due to chronic deformity. No definite change within the toes is noted since prior exam. Several ossific/calcific densities are noted superior to the posterior calcaneus with change in appearance of the posterior superior calcaneus since exam of May 26, 2016. There is associated soft tissue irregularity. IMPRESSION: Several ossific/calcific densities superior to the posterior calcaneus with apparent relative lucency of this portion of the calcaneus, new findings since exam of May 26, 2016. While nonspecific, the findings could reflect an infectious process such as osteomyelitis Electronically signed by: Ahsan Choi M.D. RIGHT TIBIA/FIBULA 2 VIEWS ROUTINE ADDENDUM Addendum: Comparison is made to right foot radiographs of May 26, 2016. The 1.3 cm ossific/calcific density which projects superior to the posterior calcaneus is new since that exam. There is soft tissue irregularity posterior to the calcaneus. There is relative lucency of the posterior superior calcaneus. These findings represent an interval change and may reflect an infectious process such as osteomyelitis. Electronically signed by: Ahsan Choi M.D. 08/14/2016 8:02 PM Dictated Date/Time: 08/14/2016 8:00 PM ORIGINAL REPORT FINDINGS: There is extensive vascular calcification. There are surgical clips. No fracture within the right tibia or fibula is identified. There is calcification which projects of the distal Achilles which is probably old. There is cortical thickening of the mid shaft of the right tibia. IMPRESSION: 1. No acute fracture of the right tibia or fibula. 2. Soft tissue calcification which projects over the distal Achilles. This is age indeterminate although probably old. Electronically signed by: Ahsan Choi M.D. 08/14/2016 7:59 PM MRI OF THE RIGHT ANKLE WITHOUT CONTRAST FINDINGS: There is a complete tear of the distal Achilles tendon at its insertion. The Achilles is retracted by approximately 3 cm. The tendon itself appears unremarkable without evidence for significant tendinopathy. Of note, there is a soft tissue defect consistent with a wound overlying the posterior calcaneus. There is a moderate increased T2 signal and diminished T1 signal within the posterior aspect of the calcaneus. There is evidence for bone loss within the posterior aspect of the calcaneus, best shown on the axial images. This study is compromised by motion artifact. Plantar fascia is intact although there is thickening of the proximal plantar fascia. Talar dome is intact. Intrinsic ligaments of the right ankle are suboptimally assessed on this examination. Visualized portions of the flexor, extensor and peroneal tendons appear intact. IMPRESSION: 1. Rupture of the distal Achilles tendon at its insertion with 3 cm of tendon retraction. 2. Wound overlying the posterior calcaneus with abnormal marrow signal within the posterior calcaneus and associated bone loss. The osseous findings raise the possibility of osteomyelitis which may have predisposed to Achilles rupture. A posttraumatic etiology could appear similar although is considered somewhat less likely. Clinical correlation for evidence of osteomyelitis is recommended. Electronically signed by: Ahsan Choi M.D. RIGHT LOWER EXTREMITY VENOUS DOPPLER FINDINGS: The right common femoral, superficial femoral and popliteal veins were compressible. Augmentation was normal. Flow was shown within the deep calf vessels. A few morphologically benign right inguinal lymph nodes were noted. There was soft tissue swelling and edema of the right lower extremity. IMPRESSION: No evidence of deep venous thrombus within the right lower extremity. Electronically signed by: Ahsan Choi M.D. Laboratory Results 08/14/16 22:35 Red Blood Count 2.61, Mean Corpuscular Volume 103.8, Mean Corpuscular Hemoglobin 33.0, Mean Corpuscular Hemoglobin Concent 31.7, Mean Platelet Volume 9.4, Neutrophils (%) (Auto) 74.9, Lymphocytes (%) (Auto) 13.2, Monocytes (%) ( Auto) 10.0, Eosinophils (%) (Auto) 1.1, Basophils (%) (Auto) 0.3, Neutrophils # (Auto) 14.70, Lymphocytes # (Auto) 2.58, Monocytes # (Auto) 1.96, Eosinophils # (Auto) 0.21, Basophils # (Auto) 0.06 08/14/16 22:35 Test 08/14/16 22:35 White Blood Count 19.60 K/uL (4.8-10.8) Red Blood Count 2.61 M/uL (4.7-6.1) Hemoglobin 8.6 g/dL (14.0-18.0) Hematocrit 27.1 % (42-52) Mean Corpuscular Volume 103.8 fL (80-100) Mean Corpuscular Hemoglobin 33.0 pg (25-34) Mean Corpuscular Hemoglobin Concent 31.7 g/dl (32-36) Platelet Count 236 K/uL (130-400) Mean Platelet Volume 9.4 fL (7.4-10.4) Neutrophils (%) (Auto) 74.9 % Lymphocytes (%) (Auto) 13.2 % Monocytes (%) (Auto) 10.0 % Eosinophils (%) (Auto) 1.1 % Basophils (%) (Auto) 0.3 % Neutrophils # (Auto) 14.70 K/uL (1.4-6.5) Lymphocytes # (Auto) 2.58 K/uL (1.2-3.4) Monocytes # (Auto) 1.96 K/uL (0.11-0.59) Eosinophils # (Auto) 0.21 K/uL (0-0.5) Basophils # (Auto) 0.06 K/uL (0-0.2) RDW Standard Deviation 60.8 fL (36.4-46.3) RDW Coefficient of Variation 16.2 % (11.5-14.5) Immature Granulocyte % (Auto) 0.5 % Immature Granulocyte # (Auto) 0.09 K/uL (0.00-0.02) Polychromasia 1+ Erythrocyte Sedimentation Rate 31 mm/hr (0-14) Anion Gap 8.0 mmol/L (3-11) Est Creatinine Clear Calc Drug Dose 19.8 ml/min Estimated GFR () 19.2 Estimated GFR (Non- 16.6 BUN/Creatinine Ratio 12.3 (10-20) Calcium Level 8.1 mg/dl (8.5-10.1) C-Reactive Protein 9.16 mg/dl (0-0.29) Laboratory results as stated above per my review. Medications Administered Medications (Trade) Dose Ordered Sig/Andrei Route Start Time Stop Time Status Last Admin Dose Admin Piperacillin Sod/ Tazobactam Sod/ Dextrose (Zosyn Iv/D5 100ml) 120 ml @ 200 mls/hr Q6 IV 08/15/16 00:00 08/15/16 02:20 DC 08/15/16 00:17 200 MLS/HR ED Course 1913: Previous medical records were reviewed. The patient was evaluated in room C6. A complete history and physical examination was performed. 2300: Ordered Daptomycin / Sodium Chloride 50 ml @ 100 mls/hr IV. 2304: On reevaluation, the patient is resting comfortably. I discussed the results and findings with him. He verbalized agreement of the treatment plan. [facility] The patient will be evaluated for further management and care. 0000: Ordered Piperacillin Sod/Tazobactam Sod 4.5 gm/Dextrose 120 mL @ 200 mL/ hr IV. Medical Decision Differential diagnosis: Etiologies such as DVT, musculoskeletal, fracture, Achilles tendon rupture, infection, joint effusion, trauma, lymphedema, idiopathic, CHF, as well as others were entertained. This is a 76-year-old male who presents to the ED with a chief complaint of right foot discomfort. The patient states that he heard a pop in his right leg yesterday while attempting to walk with a walker. He came to the ED for evaluation today because he was unable to walk on the right leg because of pain. The patient appears chronically disabled. The patient was seen by wound care 2 days ago for a right heel eschar. Some of the eschar was trimmed. Patient's exam reveals tenderness to the right calf and Achilles area. There is edema in the lower extremity. The patient has difficulty with dorsiflexion as well as plantar flexion of the right foot. Distal pulses are intact. There is an eschar on the right foot. There is no obvious acute infection noted. His vital signs are normal. He is afebrile. X-ray of the right foot reveals questionable osteomyelitis in the superior posterior aspect of the calcaneus. Tib-fib x-ray was negative. Ultrasound leg did not show DVT. An MRI reveals a ruptured distal Achilles tendon with possible loss of myelitis. Clinical correlation was suggested. The patient's white blood cell count of 19.6. Hemoglobin is 8.6. Sedimentation rate and CRP are elevated creatinine and BUN are elevated. The patient was started on IV antibiotics. I spoke with the hospitalist service for further inpatient evaluation and care. Consults Time Called: 2300 Consulting Physician: Dr. David Witt Returned Call: [phone] Discussed the patient's case. The patient will be evaluated for further treatment and disposition. Impression Primary Impression: Rupture of right Achilles tendon Additional Impressions: Foot osteomyelitis, right Anemia ESRD on peritoneal dialysis Scribe Attestation The scribe's documentation has been prepared under my direction and personally reviewed by me in its entirety. I confirm that the note above accurately reflects all work, treatment, procedures, and medical decision making performed by me. Departure Information Dispostion Being Evaluated By Hospitalist Referrals Letha Obregon M.D. (PCP) Patient Instructions My [facility] Problem Qualifiers
[2016-08-15] MEDS ORDERED: PIPERACILL/TAZOBAC CONSULT ACTIVE PRN (03:00)
[2016-08-15] MEDS ORDERED: DAPTOMYCIN CONSULT ACTIVE PRN ×2 (03:45)
[2016-08-15 06:44] LABS: HEMATOCRIT 25.1 % (42-52); MEAN CELL VOLUME 105.5 fL (80-100); MEAN CORPUSCULAR HEMOGLOBIN 32.8 pg (25-34); MEAN CORPUSCULAR HGB CONC 31.1 g/dl (32-36); MEAN PLATELET VOLUME 9.9 fL (7.4-10.4); PLATELET COUNT 222 K/uL (130-400); RED BLOOD COUNT 2.38 M/uL (4.7-6.1); WHITE BLOOD COUNT 21.82 K/uL (4.8-10.8)
[2016-08-15 06:54] LABS: INR 1.6 (0.9-1.1)
[2016-08-15 07:12] LABS: ESTIMATED AVERAGE GLUCOSE 137 mg/dl; HA1C FLAG Normal (Normal)
[2016-08-15 07:18] LABS: BUN/CREATININE RATIO 11.8 (10-20); CREATININE 3.6 mg/dl (0.60-1.40); MAGNESIUM 1.8 mg/dl (1.8-2.4); POTASSIUM 3.5 mmol/L (3.5-5.1)
[2016-08-15 07:19] LABS: C-REACTIVE PROTEIN 11.8 mg/dl (0-0.29); PHOSPHORUS 2.8 mg/dl (2.5-4.9)
[2016-08-15 07:40] LABS: BASO % 0.3 %; BASO ABS # 0.06 K/uL (0-0.2); COMPLETE YES; EOS % 1.4 %; IG% 0.4 %; LYMPH % 9.9 %; LYMPH ABS # 2.17 K/uL (1.2-3.4); MONO % 9.3 %; NEUT % 78.7 %; POLYCHROMASIA 1+
--- NOTE | 2016-08-15 07:45 | DIAGNOSTIC IMAGING REPORT ---
SINGLE VIEW CHEST CLINICAL HISTORY: Cough. FINDINGS: An AP, portable, upright chest radiograph is compared to study dated 07/01/2016. The examination is degraded by portable technique and patient rotation. The patient is status post midline sternotomy and cardiac valve surgery. The heart is enlarged and there is atherosclerotic calcification of the thoracic aorta. The pulmonary vasculature is noncongested. There are low lung volumes. Patchy airspace consolidation is suggested the left lung base. A small left pleural effusion is suspected. The right lung is grossly clear. No pneumothorax is seen. The skeletal structures are osteopenic. Degenerative change is noted in the thoracic spine. There are healed right-sided rib fractures. Surgical clips and coils are noted in the upper abdomen. IMPRESSION: 1. Cardiomegaly without radiographic evidence of congestive failure. 2. There is left basilar consolidation and a small left pleural effusion. Correlate clinically for evidence of pneumonia. Radiographic follow-up to resolution is recommended. Electronically signed by: Jairo Jennings M.D. 08/15/2016 7:44 AM Dictated Date/Time: 08/15/2016 7:42 AM
[2016-08-15] MEDS ORDERED: NON-FORMULARY MEDICATION (Melatonin-Pyridoxine (Melatonin) 1 TAB) PO SCH (09:00)
[2016-08-15] MEDS ORDERED: INSULIN GLARGINE SOLOSTAR 100 UNITS/ML 3 ML PEN SC SCH ×2 (09:00→21:00)
[2016-08-15] MEDS: CITALOPRAM 20 MG TAB PO SCH (09:16)
[2016-08-15] MEDS: ASPIRIN 81 MG ECTAB PO SCH (09:16)
[2016-08-15] MEDS: CALCIUM ACETATE 667MG GELCAP PO SCH ×3 (09:16→18:22)
[2016-08-15] MEDS: CARVEDILOL 12.5 MG TAB PO SCH ×2 (09:16→21:38)
[2016-08-15] MEDS: PANTOprazole SOD 40 MG TAB PO SCH (09:17)
[2016-08-15] MEDS: FUROSEMIDE 40 MG TAB PO SCH (09:17)
[2016-08-15] MEDS: AcetaZOLAMIDE 250 MG TAB PO SCH ×2 (09:17→21:40)
[2016-08-15] MEDS: RANOLAZINE 500 MG ER TAB PO SCH ×2 (09:17→21:40)
[2016-08-15] MEDS: MULTIVITAMIN TAB PO SCH (09:18)
[2016-08-15] MEDS: OMEGA-3 (PURIFIED FISH OIL) 1 GM CAP PO SCH (09:18)
[2016-08-15] MEDS: CHOLECALCIFEROL 1000 INTER.UNIT TAB PO SCH (09:18)
[2016-08-15] MEDS: INSULIN ASPART 100 UNITS/ML 3 ML PEN SC SCH ×4 (09:19→21:28)
[2016-08-15] MEDS: PIPERACILL/TAZOBAC IV 3.375 GM in DEXTROSE 5% 100ML IV SCH ×2 (10:06→22:33)
--- NOTE | 2016-08-15 12:06 | Medical Consult ---
Consultation Date of Consultation: Aug 15, 2016. Attending Physician: Pooja. Redman S Reason for Consultation: Osteomyelitis in diabetic History of Present Illness Patient is a 76 yo male who is very lethargic during my exam, so most of the HPI was taken from previous records. He was brought to the ED with concerns of right leg pain that started shortly [employer]. The patient does have chronic lower extremity wounds including the bilateral toes and right heel. He has been noted to have bleeding from the right heel recently. When the pain began as an outpatient, the patient could no longer walk on his right heel. The patient is a diabetic and is also on Coumadin mcc. He has previously been seen at the wound center as well in regards to his right heel ulcer. These records were reviewed. He was noted to have some minor debridement done to this area during his most recent visit. Since admission, the patient did have an MRI of the right lower extremity which showed ruptured Achilles tendon at the insertion and also overlying wound with possible underlying calcaneal osteomyelitis. I reviewed these images. Chest X-Ray showed cardiomegaly, and left basilar consolidation was noted. WBC count on admission was 19.60. ESR was 31. WBC count today is 21.82. CRP 11.80. Creatinine is 3.60 Past Medical/Surgical History Medical Problems: (1) Chronic renal failure Status: Acute (2) Foot osteomyelitis, right Status: Acute (3) Rupture of right Achilles tendon Status: Acute (4) Severe anemia Status: Acute (5) Supratherapeutic INR Status: Acute (6) UTI (urinary tract infection) Status: Acute Medical Problems: (1) Afib (2) Altered mental state (3) Anemia (4) Aortic stenosis (5) CAD (coronary artery disease) (6) CHF (congestive heart failure) (7) Depression (8) Dialysis patient (9) DM2 (diabetes mellitus, type 2) (10) ESRD (end stage renal disease) (11) ESRD on peritoneal dialysis (12) HLD (hyperlipidemia) (13) HTN (hypertension) (14) Osteomyelitis (15) PAD (peripheral artery disease) (16) Prostate CA (17) Toe amputation status (18) UTI (urinary tract infection) (19) Weakness Surgical Problems: (1) H/O colonoscopy (2) H/O heart artery stent (3) H/O radical prostatectomy (4) H/O splenectomy (5) History of cataract surgery (6) History of dental surgery (7) S/P AVR (8) S/P CABG x 5 (9) S/P MVR (mitral valve repair) Family History Diabetes mellitus BROTHER FH: CAD (coronary artery disease) MOTHER BROTHER SISTER FH: lung cancer FATHER Noncontributory Social History Smoking Status: Never Smoker Smokeless Tobacco Use: No Alcohol Use: none Drug Use: none Marital Status: Occupation Status: retired, disabled Allergies Coded Allergies: No Known Allergies (Verified , 08/14/16) Home Medications Reported Home Medications Medications Dose Route/Sig Max Daily Dose Days Date Category Dose Instructions D3-1000 (Cholecalciferol) 1,000 Unit Cap 1,000 Units PO DAILY 08/15/16 Reported Phoslo 667 Mg (Calcium Acetate) 667 Mg Cap 1 Cap PO WM 08/03/16 Reported Humalog (Insulin Lispro (Human)) 100 Unit/Ml Inj 0 SC ACHS 07/07/16 Rx insulin sliding scale gaol 110-140mg/dl correction factor: 1 unit insulin for every 40mg/dl above 140mg/dl blood glucose levels Lantus Solostar (Insulin Glargine) 100 Unit/Ml Inj 10 Units SC QAM 07/07/16 Rx Acetazolamide 250 Mg Tab 250 Mg PO BID 07/02/16 Reported Melatonin (Melatonin-Pyridoxine) 1 Tab Tab 1 Tab PO DAILY 07/01/16 Reported Calcium (Oyster Shell) 500 Mg Tab 500 Mg PO DAILY 07/01/16 Reported Zinc (Zinc Gluconate) 50 Mg Tab 50 Mg PO BID 07/01/16 Reported Ranexa (Ranolazine) 500 Mg Tab 1 Tab PO BID 30 07/01/16 Reported Coumadin (Warfarin Sodium) 3 Mg Tab 3 Mg PO DAILY 07/01/16 Reported Compazine (Prochlorperazine Maleate) 10 Mg Tab 1 Tab PO Q6 PRN 7 05/26/16 Reported Nitrostat (Nitroglycerin) 0.4 Mg/1 Tab Subl 0.4 Mg SL UD PRN 05/26/16 Reported Meclizine Hcl 25 Mg Tab 1 Tab PO TID PRN 30 05/26/16 Reported Aspirin EC Low Dose (Aspirin) 81 Mg Ectab 81 Mg PO DAILY 05/26/16 Reported Citalopram Hydrobromide 10 Mg Tab 2 Tab PO DAILY 90 03/30/16 Reported Yelm-3 (Fish Oil) 1 Ea Cap 1 Cap PO DAILY 08/14/15 Reported Lisinopril 2.5 Mg Tab 2.5 Mg PO HS 05/22/12 Reported Lasix (Furosemide) 40 Mg Tab 80 Mg PO DAILY 05/22/12 Reported Lanoxin (Digoxin) 0.125 Mg Tab 0.125 Mg PO 3XWK 05/22/12 Reported TAKES ON MON, WED, FRI. Coreg (Carvedilol) 12.5 Mg Tab 12.5 Mg PO BID 05/22/12 Reported Multivitamin (Multiple Vitamin) 1 Tab Tab 1 Tab PO DAILY 12/20/11 Reported Prilosec (Omeprazole) 20 Mg Capcr 20 Mg PO DAILY 12/20/11 Reported Folvite (Folic Acid) 1 Mg Tab 1 Mg PO DAILY 12/20/11 Reported Current Inpatient Medications Current Inpatient Medications Medications (Trade) Dose Ordered Sig/Andrei Route Start Time Stop Time Status Last Admin Dose Admin Acetaminophen (Tylenol Tab) 650 mg Q4H PRN PO 08/15/16 00:15 09/14/16 00:14 Polyethylene (Miralax Powder Packet) 17 gm DAILY PRN PO 08/15/16 00:15 09/14/16 00:14 Ondansetron HCl (Zofran Inj) 4 mg Q6H PRN IV 08/15/16 00:15 09/14/16 00:14 Insulin Glargine (Lantus Solostar Pen) 8 unit Q12 SC 08/15/16 09:00 09/14/16 08:59 Future Hold Insulin Aspart (novoLOG ASPART) SLIDING SCALE If C... ACHS SC 08/15/16 07:00 09/14/16 06:59 Glucose (Glucose 40% Gel) 15-30 GRAMS 15 GRAMS... UD PRN PO 08/15/16 00:15 09/14/16 00:14 Glucose (Glucose Chew Tab) 4-8 Tablets 4 Tabl... UD PRN PO 08/15/16 00:15 09/14/16 00:14 Dextrose (Dextrose 50% 50ML Syringe) 25-50ML OF 50% DW IV FOR... UD PRN IV 08/15/16 00:15 3/29/17 00:14 Glucagon (Glucagon Inj) 1 mg UD PRN SQ 08/15/16 00:15 09/14/16 00:14 Miscellaneous Information (Consult Glycemic Management Pharmacy) 1 ea DAILY PRN N/A 08/15/16 02:18 09/14/16 02:17 Acetazolamide (Diamox Tab) 250 mg BID PO 08/15/16 09:00 09/14/16 08:59 08/15/16 09:17 250 MG Aspirin (Ecotrin Tab) 81 mg DAILY PO 08/15/16 09:00 09/14/16 08:59 08/15/16 09:16 81 MG Calcium Acetate (Phoslo Cap) 667 mg AC PO 08/15/16 08:00 09/14/16 07:59 08/15/16 09:16 667 MG Carvedilol (Coreg Tab) 12.5 mg BID PO 08/15/16 09:00 09/14/16 08:59 08/15/16 09:16 12.5 MG Digoxin (Lanoxin Tab) 0.125 mg DAILY@1600 PO 08/15/16 16:00 09/14/16 15:59 Fish Oil (Yelm-3 (Purified Fish Oil) Cap) 1 gm DAILY PO 08/15/16 09:00 09/14/16 08:59 08/15/16 09:18 1 GM Folic Acid (Folvite Tab) 1 mg DAILY PO 08/15/16 09:00 09/14/16 08:59 08/15/16 09:17 1 MG Furosemide (Lasix Tab) 80 mg DAILY PO 08/15/16 09:00 09/14/16 08:59 08/15/16 09:17 80 MG Lisinopril (Zestril Tab) 2.5 mg HS PO 08/15/16 21:00 09/14/16 20:59 Multivitamins (Multivitamin Tab) 1 tab DAILY PO 08/15/16 09:00 09/14/16 08:59 08/15/16 09:18 1 TAB Warfarin Sodium (Coumadin Tab) 3 mg DAILY@1600 PO 08/15/16 16:00 09/14/16 15:59 Ranolazine (Ranexa ER Tab) 500 mg BID PO 08/15/16 09:00 09/14/16 08:59 08/15/16 09:17 500 MG Cholecalciferol (Vitamin D Tab) 1,000 inter.unit QAM PO 08/15/16 09:00 09/14/16 08:59 08/15/16 09:18 1,000 INTER.UNIT Citalopram Hydrobromide (celeXA TAB) 20 mg QAM PO 08/15/16 09:00 09/14/16 08:59 08/15/16 09:16 20 MG Pantoprazole Sodium (Protonix Tab) 40 mg QAM PO 08/15/16 09:00 09/14/16 08:59 08/15/16 09:17 40 MG Piperacillin Sod/ Tazobactam Sod (Consult) 1 ea UD PRN N/A 08/15/16 03:00 09/14/16 02:59 Daptomycin 1 ea 1 ea UD PRN N/A 08/15/16 03:45 09/14/16 03:44 Piperacillin Sod/ Tazobactam Sod 3.375 gm/Dextrose 115 ml @ 28.75 mls/ hr Q12H IV 08/15/16 10:00 09/26/16 09:59 08/15/16 10:06 28.75 MLS/HR Daptomycin/Sodium Chloride (Cubicin IV/Nss 50ml) 60 ml @ 120 mls/hr Q48H IV 08/17/16 04:00 09/26/16 03:59 Review of Systems ROS unreliable due to patient lethargy- patient answers "I don't know" to most questions Constitutional: + fatigue, No chills, No sweats Eyes: No worsening of vision ENT: No hearing loss Respiratory: No shortness of breath Cardiovascular: No chest pain Abdomen: No nausea, No pain Physical Exam Date Time Temp Pulse Resp B/P Pulse Ox O2 Delivery O2 Flow Rate FiO2 08/15/16 08:13 99 Room Air 08/15/16 08:06 36.9 89 21 108/58 99 Room Air 08/15/16 07:37 Room Air 08/15/16 03:59 37.1 56 18 127/60 93 Room Air 08/15/16 01:39 63 18 95/60 98 Room Air 08/14/16 23:08 64 18 137/60 100 Room Air 08/14/16 19:48 61 20 115/75 98 Room Air 08/14/16 17:48 36.8 65 20 115/75 100 Room Air General Appearance: WD/WN, no apparent distress, + pertinent finding (sleeping on and off) Head: normocephalic, atraumatic Eyes: normal inspection, sclerae normal ENT: hearing grossly normal Neck: supple, trachea midline Respiratory/Chest: chest non-tender, normal breath sounds, no respiratory distress, no accessory muscle use Cardiovascular: regular rate, rhythm, + systolic murmur Abdomen/GI: normal bowel sounds, non tender, soft Extremities/Musculoskelatal: + pertinent finding (dressing on toes/right heel) Neurologic/Psych: + pertinent finding (lethargic) Skin: warm/dry, no rash Laboratory Results MRI OF THE RIGHT ANKLE WITHOUT CONTRAST CLINICAL HISTORY: Right ankle pain. Evaluate for ruptured Achilles tendon. Open sores. COMPARISON STUDY: Right foot radiographs May 26, 2016 and August 14, 2016. TECHNIQUE: Utilizing a 1.5 Madelin magnet and dedicated coil, multiplanar, multi echo imaging of the right ankle was performed without IV contrast. FINDINGS: There is a complete tear of the distal Achilles tendon at its insertion. The Achilles is retracted by approximately 3 cm. The tendon itself appears unremarkable without evidence for significant tendinopathy. Of note, there is a soft tissue defect consistent with a wound overlying the posterior calcaneus. There is a moderate increased T2 signal and diminished T1 signal within the posterior aspect of the calcaneus. There is evidence for bone loss within the posterior aspect of the calcaneus, best shown on the axial images. This study is compromised by motion artifact. Plantar fascia is intact although there is thickening of the proximal plantar fascia. Talar dome is intact. Intrinsic ligaments of the right ankle are suboptimally assessed on this examination. Visualized portions of the flexor, extensor and peroneal tendons appear intact. IMPRESSION: 1. Rupture of the distal Achilles tendon at its insertion with 3 cm of tendon retraction. 2. Wound overlying the posterior calcaneus with abnormal marrow signal within the posterior calcaneus and associated bone loss. The osseous findings raise the possibility of osteomyelitis which may have predisposed to Achilles rupture. A posttraumatic etiology could appear similar although is considered somewhat less likely. Clinical correlation for evidence of osteomyelitis is recommended. RUN DATE: 08/15/16 [facility] PAGE 1 RUN TIME: 954 Specimen Inquiry PATIENT: SAM JONES LOC: ELISA U # : [id number] AGE/SX: 76/M ROOM: [facility] REG : 08/15/[address]: Pooja. Redman S : 1940 BED: 1 DIS : STATUS: ADM IN TLOC: SPEC #: [id number] MYRTLE: 08/15/16 STATUS: RES REQ #: [id number] RECD: 08/15/[address]: Lauren Hernandez DO SOURCE: TISSUE ENTR: 08/15/16 [facility] DR: Shruthi Whitaker MD [facility]: Carl HSU Bradley A., D.O. Bell, Evan T MD Lavery, Doriann M.D. Patel, Pooja., S ORDERED: DEP WND CUL/SMR COMMENTS: Has Specimen Been Obtained/Collected? Y Procedure Result Verified Site GRAM STAIN Final 08/15/16-954 RESULT FEW WBCs SEEN MODERATE GRAM POSITIVE COCCI DEEP WOUND CULTURE PENDING Item Value Date Time Gram Stain - Final Resulted 08/15/16214 Tissue Heel , Right Gram Stain - Final Resulted 08/15/16214 Skin Heel , Right Last 24 Hours Test 08/14/16 22:35 08/15/16 05:50 08/15/16 07:58 White Blood Count 19.60 K/uL 21.82 K/uL Red Blood Count 2.61 M/uL 2.38 M/uL Hemoglobin 8.6 g/dL 7.8 g/dL Hematocrit 27.1 % 25.1 % Mean Corpuscular Volume 103.8 fL 105.5 fL Mean Corpuscular Hemoglobin 33.0 pg 32.8 pg Mean Corpuscular Hemoglobin Concent 31.7 g/dl 31.1 g/dl Platelet Count 236 K/uL 222 K/uL Mean Platelet Volume 9.4 fL 9.9 fL Neutrophils (%) (Auto) 74.9 % 78.7 % Lymphocytes (%) (Auto) 13.2 % 9.9 % Monocytes (%) (Auto) 10.0 % 9.3 % Eosinophils (%) (Auto) 1.1 % 1.4 % Basophils (%) (Auto) 0.3 % 0.3 % Neutrophils # (Auto) 14.70 K/uL 17.16 K/uL Lymphocytes # (Auto) 2.58 K/uL 2.17 K/uL Monocytes # (Auto) 1.96 K/uL 2.04 K/uL Eosinophils # (Auto) 0.21 K/uL 0.31 K/uL Basophils # (Auto) 0.06 K/uL 0.06 K/uL RDW Standard Deviation 60.8 fL 62.1 fL RDW Coefficient of Variation 16.2 % 16.1 % Immature Granulocyte % (Auto) 0.5 % 0.4 % Immature Granulocyte # (Auto) 0.09 K/uL 0.08 K/uL Polychromasia 1+ 1+ Erythrocyte Sedimentation Rate 31 mm/hr 32 mm/hr Sodium Level 137 mmol/L 139 mmol/L Potassium Level 3.4 mmol/L 3.5 mmol/L Chloride Level 102 mmol/L 103 mmol/L Carbon Dioxide Level 27 mmol/L 25 mmol/L Anion Gap 8.0 mmol/L 11.0 mmol/L Blood Urea Nitrogen 42 mg/dl 42 mg/dl Creatinine 3.40 mg/dl 3.60 mg/dl Est Creatinine Clear Calc Drug Dose 19.8 ml/min 18.9 ml/min Estimated GFR () 19.2 17.9 Estimated GFR (Non- 16.6 15.5 BUN/Creatinine Ratio 12.3 11.8 Random Glucose 112 mg/dl 75 mg/dl Calcium Level 8.1 mg/dl 8.0 mg/dl C-Reactive Protein 9.16 mg/dl 11.80 mg/dl Prothrombin Time 18.0 SECONDS Prothromb Time International Ratio 1.6 Estimated Average Glucose 137 mg/dl Hemoglobin A1c 6.4 % Phosphorus Level 2.8 mg/dl Magnesium Level 1.8 mg/dl Bedside Glucose 90 mg/dl Assessment & Plan Patient with right distal Achilles tendon rupture, overlying wound, and 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 Currently the patient is on IV Daptomycin and Zosyn. Cultures are pending from the right heel. Noted that orthopedic consultation is also pending. This patient likely will require repair/ intervention of the right Achilles tendon, but will await orthopedic eval. Antibiotic coverage is appropriate pending cultures. We will adjust when cultures are available. He likely will need 4-6 weeks of IV abx. PROVIDER ADDENDUM: Patient examined and reviewed with Ms. Ayala. Agree with above assessment.
--- NOTE | 2016-08-15 15:25 | Pharmacy Progress Note ---
Glycemic Control Intl Consult Date of Service Aug 15, 2016. Scope Glycemic Pharmacist consulted by Dr Hernandez on 08/15/16 for glycemic control and to write orders per [facility] inpatient glycemic control protocol Objective Weight (Kilograms): 85.000 Accuchecks BSG (last 24hrs): Test 08/14/16 22:35 08/15/16 05:50 08/15/16 07:58 08/15/16 11:45 Random Glucose 112 mg/dl (70-99) 75 mg/dl (70-99) Bedside Glucose 90 mg/dl (70-99) 87 mg/dl (70-99) Laboratory Data (last 24hrs) Test 08/14/16 22:35 08/15/16 05:50 Anion Gap 8.0 mmol/L 11.0 mmol/L BUN/Creatinine Ratio 12.3 11.8 Blood Urea Nitrogen 42 mg/dl 42 mg/dl Creatinine 3.40 mg/dl 3.60 mg/dl Potassium Level 3.4 mmol/L 3.5 mmol/L Sodium Level 137 mmol/L 139 mmol/L White Blood Count 19.60 K/uL 21.82 K/uL Red Blood Count 2.61 M/uL 2.38 M/uL Hemoglobin 8.6 g/dL 7.8 g/dL Hematocrit 27.1 % 25.1 % Mean Corpuscular Volume 103.8 fL 105.5 fL Mean Corpuscular Hemoglobin 33.0 pg 32.8 pg Mean Corpuscular Hemoglobin Concent 31.7 g/dl 31.1 g/dl Platelet Count 236 K/uL 222 K/uL Mean Platelet Volume 9.4 fL 9.9 fL Neutrophils (%) (Auto) 74.9 % 78.7 % Lymphocytes (%) (Auto) 13.2 % 9.9 % Monocytes (%) (Auto) 10.0 % 9.3 % Eosinophils (%) (Auto) 1.1 % 1.4 % Basophils (%) (Auto) 0.3 % 0.3 % Neutrophils # (Auto) 14.70 K/uL 17.16 K/uL Lymphocytes # (Auto) 2.58 K/uL 2.17 K/uL Monocytes # (Auto) 1.96 K/uL 2.04 K/uL Eosinophils # (Auto) 0.21 K/uL 0.31 K/uL Basophils # (Auto) 0.06 K/uL 0.06 K/uL Hemoglobin A1c 6.4 % HbA1c Test 08/15/16 05:50 Hemoglobin A1c 6.4 % (4.5-5.6) H Recent Pertinent Medications Outpatient Anti-diabetic Regimen: * Lantus 70 units SQ q 24 hours * Humalog sliding scale * CF: 40mg/dL/unit * Goal range 110-140mg/dL * A1c = 6.4 % 07/2016 The patient is currently receiving: * Basal insulin: Lantus on hold at this time * Correctional Insulin: NovoLog Correction per scale AC/HS Goal Range: Low 100 mg/dL - High 140 mg/dL Correction Factor: 50 mg/dL/unit * Prandial insulin: Per carb ratio of 1 unit per 17 grams CHO consumed Risk Factors for Insulin Resistance: * Infection: Daptomycin/Zosyn for a chronic wound/osteo * Diet: T2DM/renal Assessment & Plan ASSESSMENT: * ADA & AACE recommend a goal blood sugar range 140-180 mg/dl for the majority of critically ill & non-critically ill patients. However, more stringent targets may be selected in individual cases. 08/15/16 * 76 y/o type 2 diabetic who uses quite large doses of Lantus and sliding scale NovoLog as an outpatient. * It is recorded that Mr. Grant took 50 units on 08/14 (the day prior to admission) * BSGs have since been below goal range * Concerning for hypoglycemia as an outpatient based on both this and A1c of 6.4 % * Patient has ESRD and receives peripheral dialysis - this may alter the A1c and make it less reliable * Currently, basal inulin is on hold to avoid acute hypoglycemia * NovoLog continues, however will remove prandial coverage until BSGs are euglycemic PLAN FOR INPATIENT GLYCEMIC CONTROL: * Lantus - hold at this time * NovoLog AC and HS * Correction factor: 50mg/dL/unit * Carb ratio: remove * Goal range: 100-140mg/dL * Once BSGs are above 140mg/dL and sustained, will resume both prandial and basal insulin using the weight-based dosing calculators * Please note that the plan above was derived based on current level of insulin resistance and hospital stress. These recommendations are appropriate for inpatient admission only. Plan of care upon discharge will need to be reassessed to avoid potential outpatient hypo/hyperglycemia. Thank you.
--- NOTE | 2016-08-15 15:36 | Progress Note ---
Progress Note Date of Service Aug 15, 2016. Progress Note Patient was seen and evaluated today. Was admitted overnight with trauma to right heel- found to have Achilles tendon rupture. C/O pain in right leg, but denies any c/o sob, chest pain, nausea, vomiting, abd pain, urinary burning. On exam, AAOX2, not in distress, Chest- Lungs - BS decreased, no wheezing, rhonchi, Heart- S1, S2 normal, Abdomen- soft, non tender, non distended, BS present, Ext- RLL dressing- foot present 1. Right distal Achilles tendon rupture- Rest, Pain mx, Ortho consulted 2. Probable Calcaneal osteomyelitis per imaging- IV Daptomycin/IV Zosyn as DM + . Cultures from heel pending. ID on board. Appreciate inputs. May need antibiotics for 4-6 weeks Updated by bedside.
[2016-08-15] MEDS: WARFARIN SOD 3 MG TAB PO SCH (15:43)
[2016-08-15] MEDS ORDERED: TRAMADOL HCL 50 MG TAB PO PRN (15:45)
[2016-08-15] MEDS ORDERED: MoRPHine SULFATE 2 MG/ML CARP IV PRN (15:45)
[2016-08-15] MEDS: DIGOXIN 0.125 MG TAB PO SCH (15:46)
--- NOTE | 2016-08-15 20:10 | Nephrology Consultation ---
Nephrology Consultation Date of Consultation: Aug 15, 2016. Attending Physician: Dr Redman Requesting Physician: Dr Hernandez Reason for Consultation: ESRD on PD History of Present Illness 76 year old male w/ ESRD on PD and chronic R heel wound ruptured his Achilles tendon yesterday after getting up out of a chair at home: he was diagnosed w/ osteomyelitis R foot on presentation and ortho/ID were consulted. He has severe PAD and recently had 3 stents placed; his heel wound was also recently debrided on 08/12. Other medical hx includes DM, aortic stenosis, a fib, chronic systolic HF EF 40%, CAD s/p 5V CABG and stent, s/p bioprosthetic mitral valve repair, depression, HTN, HL; prostate CA s/p radical prostatectomy, s/p splenectomy. He has a hard time giving some details about his dialysis care and is in this sense a limited historian. Denies issues with PD exchanges recently; denies abd pain, n/v, diarrhea recently. Family does his PD for him he states. Past Medical/Surgical History Medical Problems: (1) Chronic renal failure Status: Acute (2) Foot osteomyelitis, right Status: Acute (3) Rupture of right Achilles tendon Status: Acute (4) Severe anemia Status: Acute (5) Supratherapeutic INR Status: Acute (6) UTI (urinary tract infection) Status: Acute as per HPI Family History Diabetes mellitus BROTHER FH: CAD (coronary artery disease) MOTHER BROTHER SISTER FH: lung cancer FATHER Social History Smoking Status: Never Smoker Drug Use: none Marital Status: Occupation Status: retired, disabled Allergies Coded Allergies: No Known Allergies (Verified , 08/14/16) Medications Current Inpatient Medications Medications (Trade) Dose Ordered Sig/Andrei Route Start Time Stop Time Status Last Admin Dose Admin Acetaminophen (Tylenol Tab) 650 mg Q4H PRN PO 08/15/16 00:15 09/14/16 00:14 Polyethylene (Miralax Powder Packet) 17 gm DAILY PRN PO 08/15/16 00:15 09/14/16 00:14 Ondansetron HCl (Zofran Inj) 4 mg Q6H PRN IV 08/15/16 00:15 09/14/16 00:14 Insulin Glargine (Lantus Solostar Pen) 8 unit Q12 SC 08/15/16 09:00 09/14/16 08:59 Future Hold Insulin Aspart (novoLOG ASPART) SLIDING SCALE If C... ACHS SC 08/15/16 07:00 09/14/16 06:59 Glucose (Glucose 40% Gel) 15-30 GRAMS 15 GRAMS... UD PRN PO 08/15/16 00:15 09/14/16 00:14 Glucose (Glucose Chew Tab) 4-8 Tablets 4 Tabl... UD PRN PO 08/15/16 00:15 09/14/16 00:14 Dextrose (Dextrose 50% 50ML Syringe) 25-50ML OF 50% DW IV FOR... UD PRN IV 08/15/16 00:15 09/14/16 00:14 Glucagon (Glucagon Inj) 1 mg UD PRN SQ 08/15/16 00:15 09/14/16 00:14 Miscellaneous Information (Consult Glycemic Management Pharmacy) 1 ea DAILY PRN N/A 08/15/16 02:18 09/14/16 02:17 Acetazolamide (Diamox Tab) 250 mg BID PO 08/15/16 09:00 09/14/16 08:59 08/15/16 09:17 250 MG Aspirin (Ecotrin Tab) 81 mg DAILY PO 08/15/16 09:00 09/14/16 08:59 08/15/16 09:16 81 MG Calcium Acetate (Phoslo Cap) 667 mg AC PO 08/15/16 08:00 09/14/16 07:59 08/15/16 18:22 667 MG Carvedilol (Coreg Tab) 12.5 mg BID PO 08/15/16 09:00 09/14/16 08:59 08/15/16 09:16 12.5 MG Digoxin (Lanoxin Tab) 0.125 mg DAILY@1600 PO 08/15/16 16:00 09/14/16 15:59 08/15/16 15:46 0.125 MG Fish Oil ([place]-3 (Purified Fish Oil) Cap) 1 gm DAILY PO 08/15/16 09:00 09/14/16 08:59 08/15/16 09:18 1 GM Folic Acid (Folvite Tab) 1 mg DAILY PO 08/15/16 09:00 09/14/16 08:59 08/15/16 09:17 1 MG Furosemide (Lasix Tab) 80 mg DAILY PO 08/15/16 09:00 09/14/16 08:59 08/15/16 09:17 80 MG Lisinopril (Zestril Tab) 2.5 mg HS PO 08/15/16 21:00 09/14/16 20:59 Multivitamins (Multivitamin Tab) 1 tab DAILY PO 08/15/16 09:00 09/14/16 08:59 08/15/16 09:18 1 TAB Warfarin Sodium (Coumadin Tab) 3 mg DAILY@1600 PO 08/15/16 16:00 09/14/16 15:59 08/15/16 15:43 3 MG Ranolazine (Ranexa ER Tab) 500 mg BID PO 08/15/16 09:00 09/14/16 08:59 08/15/16 09:17 500 MG Cholecalciferol (Vitamin D Tab) 1,000 inter.unit QAM PO 08/15/16 09:00 09/14/16 08:59 08/15/16 09:18 1,000 INTER.UNIT Citalopram Hydrobromide (celeXA TAB) 20 mg QAM PO 08/15/16 09:00 09/14/16 08:59 08/15/16 09:16 20 MG Pantoprazole Sodium (Protonix Tab) 40 mg QAM PO 08/15/16 09:00 09/14/16 08:59 08/15/16 09:17 40 MG Piperacillin Sod/ Tazobactam Sod (Consult) 1 ea UD PRN N/A 08/15/16 03:00 09/14/16 02:59 Daptomycin 1 ea 1 ea UD PRN N/A 08/15/16 03:45 09/14/16 03:44 Piperacillin Sod/ Tazobactam Sod 3.375 gm/Dextrose 115 ml @ 28.75 mls/ hr Q12H IV 08/15/16 10:00 09/26/16 09:59 08/15/16 10:06 28.75 MLS/HR Daptomycin/Sodium Chloride (Cubicin IV/Nss 50ml) 60 ml @ 120 mls/hr Q48H IV 08/17/16 04:00 09/26/16 03:59 Insulin Glargine (Lantus Solostar Pen) SEE PROTOCOL QPM SC 08/15/16 21:00 08/15/16 22:00 Morphine Sulfate (MoRPHine SULFATE INJ) 2 mg Q6H PRN IV 08/15/16 15:45 08/29/16 15:44 Tramadol HCl (Ultram Tab) 50 mg Q6H PRN PO 08/15/16 15:45 09/14/16 15:44 Home Meds and Scripts Medications Dose Route/Sig Max Daily Dose Days Date Category Dose Instructions D3-1000 (Cholecalciferol) 1,000 Unit Cap 1,000 Units PO DAILY 08/15/16 Reported Phoslo 667 Mg (Calcium Acetate) 667 Mg Cap 1 Cap PO WM 08/03/16 Reported Humalog (Insulin Lispro (Human)) 100 Unit/Ml Inj 0 SC ACHS 07/07/16 Rx insulin sliding scale gaol 110-140mg/dl correction factor: 1 unit insulin for every 40mg/dl above 140mg/dl blood glucose levels Lantus Solostar (Insulin Glargine) 100 Unit/Ml Inj 10 Units SC QAM 07/07/16 Rx Acetazolamide 250 Mg Tab 250 Mg PO BID 07/02/16 Reported Melatonin (Melatonin-Pyridoxine) 1 Tab Tab 1 Tab PO DAILY 07/01/16 Reported Calcium (Oyster Shell) 500 Mg Tab 500 Mg PO DAILY 07/01/16 Reported Zinc (Zinc Gluconate) 50 Mg Tab 50 Mg PO BID 07/01/16 Reported Ranexa (Ranolazine) 500 Mg Tab 1 Tab PO BID 30 07/01/16 Reported Coumadin (Warfarin Sodium) 3 Mg Tab 3 Mg PO DAILY 07/01/16 Reported Compazine (Prochlorperazine Maleate) 10 Mg Tab 1 Tab PO Q6 PRN 7 05/26/16 Reported Nitrostat (Nitroglycerin) 0.4 Mg/1 Tab Subl 0.4 Mg SL UD PRN 05/26/16 Reported Meclizine Hcl 25 Mg Tab 1 Tab PO TID PRN 30 05/26/16 Reported Aspirin EC Low Dose (Aspirin) 81 Mg Ectab 81 Mg PO DAILY 05/26/16 Reported Citalopram Hydrobromide 10 Mg Tab 2 Tab PO DAILY 90 03/30/16 Reported [place]-3 (Fish Oil) 1 Ea Cap 1 Cap PO DAILY 08/14/15 Reported Lisinopril 2.5 Mg Tab 2.5 Mg PO HS 05/22/12 Reported Lasix (Furosemide) 40 Mg Tab 80 Mg PO DAILY 05/22/12 Reported Lanoxin (Digoxin) 0.125 Mg Tab 0.125 Mg PO 3XWK 05/22/12 Reported TAKES ON MON, WED, FRI. Coreg (Carvedilol) 12.5 Mg Tab 12.5 Mg PO BID 05/22/12 Reported Multivitamin (Multiple Vitamin) 1 Tab Tab 1 Tab PO DAILY 12/20/11 Reported Prilosec (Omeprazole) 20 Mg Capcr 20 Mg PO DAILY 12/20/11 Reported Folvite (Folic Acid) 1 Mg Tab 1 Mg PO DAILY 12/20/11 Reported Review of Systems Constitutional: No fever, No weakness Eyes: No worsening of vision ENT: No hearing loss Respiratory: No cough, No dyspnea at rest, No dyspnea on exertion Cardiac: + edema (RLE), No chest pain, No orthopnea, No palpitations Abdomen: No constipation, No diarrhea, No nausea, No pain, No vomiting Musculoskeletal: + joint pain (R foot/ ankle), + muscle pain (R foot/ankle), + swelling (R foot/ankle) Male : + problem reported (no change in chronic voiding habits) Neuro: + balance problems, + memory loss (?), + weakness Psych: No depression symptoms Heme: No abnormal bleeding/bruising Endo: + fatigue Skin: + see HPI, No rash Physical Exam Date Time Temp Pulse Resp B/P Pulse Ox O2 Delivery O2 Flow Rate FiO2 08/15/16 15:46 84 08/15/16 15:30 Room Air 08/15/16 15:28 37.0 85 16 102/65 97 Room Air 08/15/16 08:13 99 Room Air 08/15/16 08:06 36.9 89 21 108/58 99 Room Air 08/15/16 07:37 Room Air 08/15/16 03:59 37.1 56 18 127/60 93 Room Air 08/15/16 01:39 63 18 95/60 98 Room Air 08/14/16 23:08 64 18 137/60 100 Room Air 08/14/16 19:48 61 20 115/75 98 Room Air 24-Hour Column 08/15/16 08:00 Intake Total 265 ml Balance 265 ml General Appearance: WD/WN, no apparent distress (maenuvers readily for exam on RA; cooperative; some limited hx) Eyes: EOMI ENT: hearing grossly normal Neck: supple Respiratory/Chest: + decreased breath sounds, + crackles (L base) Cardiovascular: regular rate, rhythm, + systolic murmur Abdomen: normal bowel sounds, non tender, soft, + pertinent finding (PD cath RLQ exit site looks ok) Extremities: + pertinent finding (RLE wound not examined; R leg distally more swollen) Neurologic/Psych: alert, normal mood/affect, oriented x 3 (but poor historian) Skin: no jaundice, warm/dry, no rash Diagnostics Last 24 Hours Test 08/14/16 22:35 08/15/16 05:50 08/15/16 07:58 08/15/16 11:45 White Blood Count 19.60 K/uL 21.82 K/uL Red Blood Count 2.61 M/uL 2.38 M/uL Hemoglobin 8.6 g/dL 7.8 g/dL Hematocrit 27.1 % 25.1 % Mean Corpuscular Volume 103.8 fL 105.5 fL Mean Corpuscular Hemoglobin 33.0 pg 32.8 pg Mean Corpuscular Hemoglobin Concent 31.7 g/dl 31.1 g/dl Platelet Count 236 K/uL 222 K/uL Mean Platelet Volume 9.4 fL 9.9 fL Neutrophils (%) (Auto) 74.9 % 78.7 % Lymphocytes (%) (Auto) 13.2 % 9.9 % Monocytes (%) (Auto) 10.0 % 9.3 % Eosinophils (%) (Auto) 1.1 % 1.4 % Basophils (%) (Auto) 0.3 % 0.3 % Neutrophils # (Auto) 14.70 K/uL 17.16 K/uL Lymphocytes # (Auto) 2.58 K/uL 2.17 K/uL Monocytes # (Auto) 1.96 K/uL 2.04 K/uL Eosinophils # (Auto) 0.21 K/uL 0.31 K/uL Basophils # (Auto) 0.06 K/uL 0.06 K/uL RDW Standard Deviation 60.8 fL 62.1 fL RDW Coefficient of Variation 16.2 % 16.1 % Immature Granulocyte % (Auto) 0.5 % 0.4 % Immature Granulocyte # (Auto) 0.09 K/uL 0.08 K/uL Polychromasia 1+ 1+ Erythrocyte Sedimentation Rate 31 mm/hr 32 mm/hr Sodium Level 137 mmol/L 139 mmol/L Potassium Level 3.4 mmol/L 3.5 mmol/L Chloride Level 102 mmol/L 103 mmol/L Carbon Dioxide Level 27 mmol/L 25 mmol/L Anion Gap 8.0 mmol/L 11.0 mmol/L Blood Urea Nitrogen 42 mg/dl 42 mg/dl Creatinine 3.40 mg/dl 3.60 mg/dl Est Creatinine Clear Calc Drug Dose 19.8 ml/min 18.9 ml/min Estimated GFR () 19.2 17.9 Estimated GFR (Non- 16.6 15.5 BUN/Creatinine Ratio 12.3 11.8 Random Glucose 112 mg/dl 75 mg/dl Calcium Level 8.1 mg/dl 8.0 mg/dl C-Reactive Protein 9.16 mg/dl 11.80 mg/dl Prothrombin Time 18.0 SECONDS Prothromb Time International Ratio 1.6 Estimated Average Glucose 137 mg/dl Hemoglobin A1c 6.4 % Phosphorus Level 2.8 mg/dl Magnesium Level 1.8 mg/dl Bedside Glucose 90 mg/dl 87 mg/dl Test 08/15/16 16:51 Bedside Glucose 113 mg/dl Diagnostic Radiology: CXR > possible L pna; no HF MRI RLE -Achilles tendon rupture -possible calcaneal osteomyelitis Assessment & Plan 76 y/o M w/ ESRD on PD, severe PAD, cardiac disease including EF 40% - bioprosthetic MVR - CAD, chronic wounds, DM admitted with presumed R calcaneal osteomyelitis and distal R Achilles tendon rupture. On daptomycin, zosyn and pt likely to need >4 wks IV abtx; ortho consult pending. Afebrile w/ controlled or even lower BP; marked anemia w/ hgb in 7's-8's; K acceptable. ESRD -PD tonight for light/moderate UF 12hrs 5 exchanges; no LBF -continue outpt lasix, binders, D analogues, renal vitamin -clarify indication for acetazolamide > often ocular; pt can give few details -will need to discuss usp abtc access Anemia of ESRD -no tranfusion indicated -hgb daily -check iron stores w/ am labs > orders in -recommend aggressive epo dosing to be managed by renal and dosed once iron stores established Osteomyelitis R calcaneus and R Achilles tendon frx -per hospital and multiple consulting services Appreciate consult; will follow with you.
[2016-08-15] MEDS: LISINOPRIL 2.5 MG TAB PO SCH (21:39)
[2016-08-16 06:57] LABS: HEMATOCRIT 24.3 % (42-52); MEAN CELL VOLUME 103.4 fL (80-100); MEAN CORPUSCULAR HEMOGLOBIN 32.3 pg (25-34); MEAN CORPUSCULAR HGB CONC 31.3 g/dl (32-36); MEAN PLATELET VOLUME 9.4 fL (7.4-10.4); PLATELET COUNT 227 K/uL (130-400); RED BLOOD COUNT 2.35 M/uL (4.7-6.1); WHITE BLOOD COUNT 20.65 K/uL (4.8-10.8)
[2016-08-16 07:03] LABS: INR 2.1 (0.9-1.1); PROTHROMBIN TIME (PATIENT) 22.7 SECONDS (9.0-12.0)
[2016-08-16 07:25] LABS: BUN/CREATININE RATIO 11.5 (10-20); CALCIUM 7.8 mg/dl (8.5-10.1); CREATININE 3.8 mg/dl (0.60-1.40); POTASSIUM 3.4 mmol/L (3.5-5.1)
[2016-08-16 07:27] LABS: C-REACTIVE PROTEIN 14.8 mg/dl (0-0.29)
[2016-08-16 07:49] VITALS: BP 112/66; PULSE 85; TEMP 36.8; O2SAT 100
--- NOTE | 2016-08-16 08:11 | Nephrology Progress Note ---
Nephrology Progress Note Date of Service: Aug 16, 2016. Subjective 76 yo male with peritoneal dialysis who has achilles tendon rupture as well as osteo of the calcaneous. was very confused last night when my partner saw him. pt recognizes me and appears more alert this morning. pt appears comfortable and is in no obvious pain. Objective Date Time Temp Pulse Resp B/P Pulse Ox O2 Delivery O2 Flow Rate FiO2 08/16/16 07:52 Room Air 08/16/16 07:49 36.8 85 18 112/66 100 Room Air 08/16/16 00:15 Room Air 08/15/16 23:32 36.4 82 20 110/65 96 Room Air 08/15/16 22:00 37.2 81 98/61 08/15/16 21:38 97/74 08/15/16 15:46 84 08/15/16 15:30 Room Air 08/15/16 15:28 37.0 85 16 102/65 97 Room Air 08/15/16 08:13 99 Room Air 08/15/16 08:06 36.9 89 21 108/58 99 Room Air Physical Exam: General-aaox3, more alert today Eyes-no scleral icterus ENT-mmm Neck-supple Lungs-cta Heart-rrr Abdomen-pd catheter in place, soft, nontender Extremities-right heel ulcer Neuro-nonfocal, more alert Current Inpatient Medications Medications (Trade) Dose Ordered Sig/Andrei Route Start Time Stop Time Status Last Admin Dose Admin Acetaminophen (Tylenol Tab) 650 mg Q4H PRN PO 08/15/16 00:15 09/14/16 00:14 Polyethylene (Miralax Powder Packet) 17 gm DAILY PRN PO 08/15/16 00:15 09/14/16 00:14 Ondansetron HCl (Zofran Inj) 4 mg Q6H PRN IV 08/15/16 00:15 09/14/16 00:14 Insulin Aspart (novoLOG ASPART) SLIDING SCALE If C... ACHS SC 08/15/16 07:00 09/14/16 06:59 08/15/16 21:28 1 UNITS Glucose (Glucose 40% Gel) 15-30 GRAMS 15 GRAMS... UD PRN PO 08/15/16 00:15 09/14/16 00:14 Glucose (Glucose Chew Tab) 4-8 Tablets 4 Tabl... UD PRN PO 08/15/16 00:15 09/14/16 00:14 Dextrose (Dextrose 50% 50ML Syringe) 25-50ML OF 50% DW IV FOR... UD PRN IV 08/15/16 00:15 09/14/16 00:14 Glucagon (Glucagon Inj) 1 mg UD PRN SQ 08/15/16 00:15 09/14/16 00:14 Miscellaneous Information (Consult Glycemic Management Pharmacy) 1 ea DAILY PRN N/A 08/15/16 02:18 09/14/16 02:17 Acetazolamide (Diamox Tab) 250 mg BID PO 08/15/16 09:00 09/14/16 08:59 08/15/16 21:40 250 MG Aspirin (Ecotrin Tab) 81 mg DAILY PO 08/15/16 09:00 09/14/16 08:59 08/15/16 09:16 81 MG Calcium Acetate (Phoslo Cap) 667 mg AC PO 08/15/16 08:00 09/14/16 07:59 08/15/16 18:22 667 MG Carvedilol (Coreg Tab) 12.5 mg BID PO 08/15/16 09:00 09/14/16 08:59 08/15/16 09:16 12.5 MG Digoxin (Lanoxin Tab) 0.125 mg DAILY@1600 PO 08/15/16 16:00 09/14/16 15:59 08/15/16 15:46 0.125 MG Fish Oil ([place]-3 (Purified Fish Oil) Cap) 1 gm DAILY PO 08/15/16 09:00 09/14/16 08:59 08/15/16 09:18 1 GM Folic Acid (Folvite Tab) 1 mg DAILY PO 08/15/16 09:00 09/14/16 08:59 08/15/16 09:17 1 MG Furosemide (Lasix Tab) 80 mg DAILY PO 08/15/16 09:00 09/14/16 08:59 08/15/16 09:17 80 MG Lisinopril (Zestril Tab) 2.5 mg HS PO 08/15/16 21:00 09/14/16 20:59 Multivitamins (Multivitamin Tab) 1 tab DAILY PO 08/15/16 09:00 09/14/16 08:59 08/15/16 09:18 1 TAB Warfarin Sodium (Coumadin Tab) 3 mg DAILY@1600 PO 08/15/16 16:00 09/14/16 15:59 08/15/16 15:43 3 MG Ranolazine (Ranexa ER Tab) 500 mg BID PO 08/15/16 09:00 09/14/16 08:59 08/15/16 21:40 500 MG Cholecalciferol (Vitamin D Tab) 1,000 inter.unit QAM PO 08/15/16 09:00 09/14/16 08:59 08/15/16 09:18 1,000 INTER.UNIT Citalopram Hydrobromide (celeXA TAB) 20 mg QAM PO 08/15/16 09:00 09/14/16 08:59 08/15/16 09:16 20 MG Pantoprazole Sodium (Protonix Tab) 40 mg QAM PO 08/15/16 09:00 09/14/16 08:59 08/15/16 09:17 40 MG Piperacillin Sod/ Tazobactam Sod (Consult) 1 ea UD PRN N/A 08/15/16 03:00 09/14/16 02:59 Daptomycin 1 ea 1 ea UD PRN N/A 08/15/16 03:45 09/14/16 03:44 Piperacillin Sod/ Tazobactam Sod 3.375 gm/Dextrose 115 ml @ 28.75 mls/ hr Q12H IV 08/15/16 10:00 09/26/16 09:59 08/15/16 22:33 28.75 MLS/HR Daptomycin/Sodium Chloride (Cubicin IV/Nss 50ml) 60 ml @ 120 mls/hr Q48H IV 08/17/16 04:00 09/26/16 03:59 Morphine Sulfate (MoRPHine SULFATE INJ) 2 mg Q6H PRN IV 08/15/16 15:45 08/29/16 15:44 Tramadol HCl (Ultram Tab) 50 mg Q6H PRN PO 08/15/16 15:45 09/14/16 15:44 Insulin Glargine (Lantus Solostar Pen) SEE PROTOCOL Q12 SC 08/16/16 09:00 09/15/16 08:59 Last 24 Hours Test 08/15/16 11:45 08/15/16 16:51 08/15/16 20:48 08/15/16 23:09 Bedside Glucose 87 mg/dl 113 mg/dl 159 mg/dl Hepatitis B Surface Antigen NEG Test 08/16/16 06:23 08/16/16 07:43 White Blood Count 20.65 K/uL Red Blood Count 2.35 M/uL Hemoglobin 7.6 g/dL Hematocrit 24.3 % Mean Corpuscular Volume 103.4 fL Mean Corpuscular Hemoglobin 32.3 pg Mean Corpuscular Hemoglobin Concent 31.3 g/dl RDW Standard Deviation 60.5 fL RDW Coefficient of Variation 15.9 % Platelet Count 227 K/uL Mean Platelet Volume 9.4 fL Erythrocyte Sedimentation Rate 20 mm/hr Prothrombin Time 22.7 SECONDS Prothromb Time International Ratio 2.1 Sodium Level 136 mmol/L Potassium Level 3.4 mmol/L Chloride Level 101 mmol/L Carbon Dioxide Level 22 mmol/L Anion Gap 13.0 mmol/L Blood Urea Nitrogen 44 mg/dl Creatinine 3.80 mg/dl Est Creatinine Clear Calc Drug Dose 17.9 ml/min Estimated GFR () 16.8 Estimated GFR (Non- 14.5 BUN/Creatinine Ratio 11.5 Random Glucose 184 mg/dl Calcium Level 7.8 mg/dl Iron Level 13 mcg/dl Total Iron Binding Capacity 144 mcg/dl Transferrin 115 mg/dl Transferrin % Saturation 8 % C-Reactive Protein 14.80 mg/dl Bedside Glucose 210 mg/dl Assessment & Plan ESRD-pt says he is eating well. will continue pd with greens and yellows. volume status appears appropriate. Anemia of renal failure-will redose procrit today with hg levels trending down.
[2016-08-16] MEDS: PANTOprazole SOD 40 MG TAB PO SCH (08:56)
[2016-08-16] MEDS: CHOLECALCIFEROL 1000 INTER.UNIT TAB PO SCH (08:56)
[2016-08-16] MEDS: AcetaZOLAMIDE 250 MG TAB PO SCH ×2 (08:57→21:28)
[2016-08-16] MEDS: RANOLAZINE 500 MG ER TAB PO SCH ×2 (08:57→21:29)
[2016-08-16] MEDS: OMEGA-3 (PURIFIED FISH OIL) 1 GM CAP PO SCH (08:57)
[2016-08-16] MEDS: FUROSEMIDE 40 MG TAB PO SCH (08:57)
[2016-08-16] MEDS: CALCIUM ACETATE 667MG GELCAP PO SCH ×3 (08:58→17:12)
[2016-08-16] MEDS: MULTIVITAMIN TAB PO SCH (08:58)
[2016-08-16] MEDS: CARVEDILOL 12.5 MG TAB PO SCH ×2 (08:58→21:28)
[2016-08-16] MEDS: CITALOPRAM 20 MG TAB PO SCH (08:58)
[2016-08-16] MEDS: ASPIRIN 81 MG ECTAB PO SCH (08:58)
[2016-08-16] MEDS ORDERED: EPOETIN ALFA 10,000 UNITS/ML VIAL SQ SCH (09:00)
[2016-08-16] MEDS: INSULIN ASPART 100 UNITS/ML 3 ML PEN SC SCH ×4 (09:09→21:00)
[2016-08-16] MEDS: INSULIN GLARGINE SOLOSTAR 100 UNITS/ML 3 ML PEN SC SCH ×2 (09:10→21:31)
--- NOTE | 2016-08-16 09:54 | Pharmacy Progress Note ---
Glycemic Control: Progress Nt Date of Service Aug 16, 2016. Scope Glycemic Pharmacist consulted by Dr Hernandez on 08/15/16 for glycemic control and to write orders per [facility] inpatient glycemic control protocol. Objective Accuchecks BSG (last 24hrs): Test 08/15/16 11:45 08/15/16 16:51 08/15/16 20:48 08/16/16 06:23 Bedside Glucose 87 mg/dl (70-99) 113 mg/dl (70-99) 159 mg/dl (70-99) Random Glucose 184 mg/dl (70-99) Test 08/16/16 07:43 Bedside Glucose 210 mg/dl (70-99) Laboratory Data (last 24hrs) Test 08/16/16 06:23 Anion Gap 13.0 mmol/L BUN/Creatinine Ratio 11.5 Blood Urea Nitrogen 44 mg/dl Creatinine 3.80 mg/dl Potassium Level 3.4 mmol/L Sodium Level 136 mmol/L White Blood Count 20.65 K/uL HbA1c: Test 08/15/16 05:50 Hemoglobin A1c 6.4 % (4.5-5.6) H Recent Pertinent Medications Outpatient Anti-diabetic Regimen: * Lantus 70 units SQ q 24 hours * Humalog sliding scale * CF: 40mg/dL/unit * Goal range 110-140mg/dL * A1c = 6.4 % 07/2016 The patient is currently receiving: * Basal insulin: Lantus 10 units SQ BID * Correctional Insulin: NovoLog Correction per scale AC/HS Goal Range: Low 100 mg/dL - High 140 mg/dL Correction Factor: 50 mg/dL/unit * Prandial insulin: Per carb ratio of 1 unit per -- grams CHO consumed Risk Factors for Insulin Resistance: * Infection: Daptomycin/Zosyn for a chronic wound/osteo * Diet: T2DM/renal Assessment & Plan ASSESSMENT: * ADA & AACE recommend a goal blood sugar range 140-180 mg/dl for the majority of critically ill & non-critically ill patients. However, more stringent targets may be selected in individual cases. 08/15/16 * 76 y/o type 2 diabetic who uses quite large doses of Lantus and sliding scale NovoLog as an outpatient. * It is recorded that Mr. Grant took 50 units on 08/14 (the day prior to admission) * BSGs have since been below goal range * Concerning for hypoglycemia as an outpatient based on both this and A1c of 6.4 % * Patient has ESRD and receives peripheral dialysis - this may alter the A1c and make it less reliable * Currently, basal inulin is on hold to avoid acute hypoglycemia * NovoLog continues, however will remove prandial coverage until BSGs are euglycemic 08/16/16 * BSGs have began to rebound from large Lantus dose on 08/14 and we are ready to re-initiate basal insulin (at a reduced dose) * Lantus 10 units SQ BID - may increase to 15 units BID if BSGs continue to be elevated (weight-based dosing) * NovoLog now requiring prandial coverage as BSGs begin to rise * add carb ratio * Peritoneal dialysis today - may contribute to varying degrees of insulin sensitivity PLAN FOR INPATIENT GLYCEMIC CONTROL: * Lantus 10-15 units SQ BID * based on BSGs * NovoLog AC and HS * Correction factor: 30mg/dL/unit * Carb ratio: 1 unit per 15 g of CHO consumed * Goal range: 110-140mg/dL * Please note that the plan above was derived based on current level of insulin resistance and hospital stress. These recommendations are appropriate for inpatient admission only. Plan of care upon discharge will need to be reassessed to avoid potential outpatient hypo/hyperglycemia. Thank you.
[2016-08-16] MEDS: PIPERACILL/TAZOBAC IV 3.375 GM in DEXTROSE 5% 100ML IV SCH ×2 (10:06→21:29)
[2016-08-16 10:30] VITALS: BP 100/54; PULSE 81; TEMP 37.2
--- NOTE | 2016-08-16 10:40 | Infectious Disease Progress Nt ---
Progress Note Date of Service Aug 16, 2016. Subjective Pt evaluation today including: conversation w/ patient, physical exam, chart review, lab review, review of studies, review of inpatient medication list ESR trending down to 20 today. WBC count was 20.65 this morning. CRP is trending up at 14.80 today. Patient is feeling slightly improved this morning. He has been afebrile. Wound cultures growing staph aureus with sensitivities pending. Patient complains of no pain in his feet. He states that he has had loose stools but no diarrhea. All Other Systems: Reviewed and Negative Medications Current Inpatient Medications Medications (Trade) Dose Ordered Sig/Andrei Route Start Time Stop Time Status Last Admin Dose Admin Acetaminophen (Tylenol Tab) 650 mg Q4H PRN PO 08/15/16 00:15 09/14/16 00:14 Polyethylene (Miralax Powder Packet) 17 gm DAILY PRN PO 08/15/16 00:15 09/14/16 00:14 Ondansetron HCl (Zofran Inj) 4 mg Q6H PRN IV 08/15/16 00:15 09/14/16 00:14 Insulin Aspart (novoLOG ASPART) SLIDING SCALE If C... ACHS SC 08/15/16 07:00 09/14/16 06:59 08/16/16 09:09 4 UNITS Glucose (Glucose 40% Gel) 15-30 GRAMS 15 GRAMS... UD PRN PO 08/15/16 00:15 09/14/16 00:14 Glucose (Glucose Chew Tab) 4-8 Tablets 4 Tabl... UD PRN PO 08/15/16 00:15 09/14/16 00:14 Dextrose (Dextrose 50% 50ML Syringe) 25-50ML OF 50% DW IV FOR... UD PRN IV 08/15/16 00:15 09/14/16 00:14 Glucagon (Glucagon Inj) 1 mg UD PRN SQ 08/15/16 00:15 09/14/16 00:14 Miscellaneous Information (Consult Glycemic Management Pharmacy) 1 ea DAILY PRN N/A 08/15/16 02:18 09/14/16 02:17 Acetazolamide (Diamox Tab) 250 mg BID PO 08/15/16 09:00 09/14/16 08:59 08/16/16 08:57 250 MG Aspirin (Ecotrin Tab) 81 mg DAILY PO 08/15/16 09:00 09/14/16 08:59 08/16/16 08:58 81 MG Calcium Acetate (Phoslo Cap) 667 mg AC PO 08/15/16 08:00 09/14/16 07:59 08/16/16 08:58 667 MG Carvedilol (Coreg Tab) 12.5 mg BID PO 08/15/16 09:00 09/14/16 08:59 08/16/16 08:58 12.5 MG Digoxin (Lanoxin Tab) 0.125 mg DAILY@1600 PO 08/15/16 16:00 09/14/16 15:59 08/15/16 15:46 0.125 MG Fish Oil ([place]-3 (Purified Fish Oil) Cap) 1 gm DAILY PO 08/15/16 09:00 09/14/16 08:59 08/16/16 08:57 1 GM Folic Acid (Folvite Tab) 1 mg DAILY PO 08/15/16 09:00 09/14/16 08:59 08/16/16 08:58 1 MG Furosemide (Lasix Tab) 80 mg DAILY PO 08/15/16 09:00 09/14/16 08:59 08/16/16 08:57 80 MG Lisinopril (Zestril Tab) 2.5 mg HS PO 08/15/16 21:00 09/14/16 20:59 Multivitamins (Multivitamin Tab) 1 tab DAILY PO 08/15/16 09:00 09/14/16 08:59 08/16/16 08:58 1 TAB Warfarin Sodium (Coumadin Tab) 3 mg DAILY@1600 PO 08/15/16 16:00 09/14/16 15:59 08/15/16 15:43 3 MG Ranolazine (Ranexa ER Tab) 500 mg BID PO 08/15/16 09:00 09/14/16 08:59 08/16/16 08:57 500 MG Cholecalciferol (Vitamin D Tab) 1,000 inter.unit QAM PO 08/15/16 09:00 09/14/16 08:59 08/16/16 08:56 1,000 INTER.UNIT Citalopram Hydrobromide (celeXA TAB) 20 mg QAM PO 08/15/16 09:00 09/14/16 08:59 08/16/16 08:58 20 MG Pantoprazole Sodium (Protonix Tab) 40 mg QAM PO 08/15/16 09:00 09/14/16 08:59 08/16/16 08:56 40 MG Piperacillin Sod/ Tazobactam Sod (Consult) 1 ea UD PRN N/A 08/15/16 03:00 09/14/16 02:59 Daptomycin 1 ea 1 ea UD PRN N/A 08/15/16 03:45 09/14/16 03:44 Piperacillin Sod/ Tazobactam Sod 3.375 gm/Dextrose 115 ml @ 28.75 mls/ hr Q12H IV 08/15/16 10:00 09/26/16 09:59 08/16/16 10:06 28.75 MLS/HR Daptomycin/Sodium Chloride (Cubicin IV/Nss 50ml) 60 ml @ 120 mls/hr Q48H IV 08/17/16 04:00 09/26/16 03:59 Morphine Sulfate (MoRPHine SULFATE INJ) 2 mg Q6H PRN IV 08/15/16 15:45 08/29/16 15:44 Tramadol HCl (Ultram Tab) 50 mg Q6H PRN PO 08/15/16 15:45 09/14/16 15:44 Insulin Glargine (Lantus Solostar Pen) SEE PROTOCOL Q12 SC 08/16/16 09:00 09/15/16 08:59 08/16/16 09:10 10 UNIT Epoetin Eevr (Procrit Inj) 10,000 units TODAY@0900 SQ 08/16/16 09:00 08/16/16 18:00 Objective Vital Signs Date Time Temp Pulse Resp B/P Pulse Ox O2 Delivery O2 Flow Rate FiO2 08/16/16 07:52 Room Air 08/16/16 07:49 36.8 85 18 112/66 100 Room Air 08/16/16 00:15 Room Air 08/15/16 23:32 36.4 82 20 110/65 96 Room Air 08/15/16 22:00 37.2 81 98/61 08/15/16 21:38 97/74 08/15/16 15:46 84 08/15/16 15:30 Room Air 08/15/16 15:28 37.0 85 16 102/65 97 Room Air Physical Exam General Appearance: WD/WN, no apparent distress Eyes: normal inspection, sclerae normal ENT: hearing grossly normal Neck: supple, trachea midline Respiratory/Chest: chest non-tender, lungs clear, normal breath sounds, no respiratory distress, no accessory muscle use Cardiovascular: regular rate, rhythm, + systolic murmur, + pertinent finding ( skipped beats) Abdomen: normal bowel sounds, non tender, soft Extremities: + pertinent finding (waffle boots and SCD's in place B/L. B/L great toe amputations.) Neurologic/Psychiatric: alert, normal mood/affect Skin: + pertinent finding (Large ulceration of the right heel currently with Aquacel in place- note yellow/bloody drainage. Note small ulcerations of the 2nd and 3rd right toes as well) Laboratory Results RUN DATE: 08/16/16 [facility] LAB PAGE 1 RUN TIME: 808 Specimen Inquiry PATIENT: SAM JONES LOC: [facility] # : [id number] AGE/SX: 76/M ROOM: [facility] REG : 08/15/[address]: Pooja. Redman S : 1940 BED: 1 DIS : STATUS: ADM IN TLOC: SPEC #: [id number] MYRTLE: 08/15/16 STATUS: RES REQ #: [id number] RECD: 08/15/[address] [facility] [address]: Lauren Hernandez DO SOURCE: TISSUE ENTR: 08/15/[address] [facility] [address]: Shruthi Whitaker MD SPDESC: Carl HSU Bradley A., D.O. Bell, Evan T MD Lavery, Doriann M.D. Patel, Pooja., S ORDERED: CINTHYA HOUSE CUL/SMR COMMENTS: Has Specimen Been Obtained/Collected? Y Procedure Result Verified Site GRAM STAIN Final 08/15/16 RESULT FEW WBCs SEEN MODERATE GRAM POSITIVE COCCI DEEP WOUND CULTURE Preliminary 08/16/16 Organism 1 STAPHYLOCOCCUS AUREUS QUANITY MANY SENS SENSITIVITY TO FOLLOW Item Value Date Time Gram Stain - Final Resulted 08/15/16214 Tissue Heel , Right Gram Stain - Final Resulted 08/15/16214 Skin Heel , Right Last 24 Hours Test 08/15/16 11:45 08/15/16 16:51 08/15/16 20:48 08/15/16 23:09 Bedside Glucose 87 mg/dl 113 mg/dl 159 mg/dl Hepatitis B Surface Antigen NEG Test 08/16/16 06:23 08/16/16 07:43 White Blood Count 20.65 K/uL Red Blood Count 2.35 M/uL Hemoglobin 7.6 g/dL Hematocrit 24.3 % Mean Corpuscular Volume 103.4 fL Mean Corpuscular Hemoglobin 32.3 pg Mean Corpuscular Hemoglobin Concent 31.3 g/dl RDW Standard Deviation 60.5 fL RDW Coefficient of Variation 15.9 % Platelet Count 227 K/uL Mean Platelet Volume 9.4 fL Erythrocyte Sedimentation Rate 20 mm/hr Prothrombin Time 22.7 SECONDS Prothromb Time International Ratio 2.1 Sodium Level 136 mmol/L Potassium Level 3.4 mmol/L Chloride Level 101 mmol/L Carbon Dioxide Level 22 mmol/L Anion Gap 13.0 mmol/L Blood Urea Nitrogen 44 mg/dl Creatinine 3.80 mg/dl Est Creatinine Clear Calc Drug Dose 17.9 ml/min Estimated GFR () 16.8 Estimated GFR (Non- 14.5 BUN/Creatinine Ratio 11.5 Random Glucose 184 mg/dl Calcium Level 7.8 mg/dl Iron Level 13 mcg/dl Total Iron Binding Capacity 144 mcg/dl Transferrin 115 mg/dl Transferrin % Saturation 8 % C-Reactive Protein 14.80 mg/dl Bedside Glucose 210 mg/dl Assessment and Plan Patient with right distal Achilles tendon rupture, overlying wound, and 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 Currently the patient is on IV Daptomycin and Zosyn. Cultures growing staph aureus, due to the patient's diabetes, will continue broad spectrum pending final culture results. Likely can D/C Zosyn once available. Will also check blood cultures with continued leukocytosis and increasing CRP. Will await orthopedic recommendations. Likely will require prolonged course of abx therapy. PROVIDER ADDENDUM: Patient reviewed with Ms. Ayala. Agree with above assessment.
[2016-08-16 15:32] VITALS: BP 102/63; PULSE 83; TEMP 36.9; O2SAT 100
--- NOTE | 2016-08-16 15:40 | Progress Note ---
Medicine Progress Note Date & Time of Visit: Aug 16, 2016 at 15:34. Subjective patient states he feels ok overall denies chest pain, dyspnea, dizziness no leg or foot pain denies other symptom Objective Last 8 Hrs Date Time Temp Pulse Resp B/P Pulse Ox O2 Delivery O2 Flow Rate FiO2 08/16/16 07:52 Room Air 08/16/16 07:49 36.8 85 18 112/66 100 Room Air Physical Exam: General- oriented x 3, not in distress, speaks in sentences Eyes-anicteric Neck- supple, no JVD Lungs- clear breath sounds bilaterally Heart- normal rate, regular rhythm; no murmurs Abdomen- normal bowel sounds, soft, nontender Extremities- (+) eschar on the right heel no pretibial edema, no calf tenderness; peripheral pulses intact Neuro- alert, oriented x 3;no gross focal deficits Skin- warm & dry Laboratory Results: Last 24 Hours Test 08/15/16 16:51 08/15/16 20:48 08/15/16 23:09 08/16/16 06:23 Bedside Glucose 113 mg/dl 159 mg/dl Hepatitis B Surface Antigen NEG White Blood Count 20.65 K/uL Red Blood Count 2.35 M/uL Hemoglobin 7.6 g/dL Hematocrit 24.3 % Mean Corpuscular Volume 103.4 fL Mean Corpuscular Hemoglobin 32.3 pg Mean Corpuscular Hemoglobin Concent 31.3 g/dl RDW Standard Deviation 60.5 fL RDW Coefficient of Variation 15.9 % Platelet Count 227 K/uL Mean Platelet Volume 9.4 fL Erythrocyte Sedimentation Rate 20 mm/hr Prothrombin Time 22.7 SECONDS Prothromb Time International Ratio 2.1 Sodium Level 136 mmol/L Potassium Level 3.4 mmol/L Chloride Level 101 mmol/L Carbon Dioxide Level 22 mmol/L Anion Gap 13.0 mmol/L Blood Urea Nitrogen 44 mg/dl Creatinine 3.80 mg/dl Est Creatinine Clear Calc Drug Dose 17.9 ml/min Estimated GFR () 16.8 Estimated GFR (Non- 14.5 BUN/Creatinine Ratio 11.5 Random Glucose 184 mg/dl Calcium Level 7.8 mg/dl Iron Level 13 mcg/dl Total Iron Binding Capacity 144 mcg/dl Transferrin 115 mg/dl Transferrin % Saturation 8 % C-Reactive Protein 14.80 mg/dl Test 08/16/16 07:43 08/16/16 12:10 Bedside Glucose 210 mg/dl 144 mg/dl Date/Time Source Procedure Growth Status 08/16/16 11:25 Blood Blood Culture Pending Received 08/16/16 11:25 Blood Blood Culture Pending Received Assessment & Plan 76 yoM with multiple comorbidities presents after trauma to R heel causing acute Achilles tendon rupture in addition to a chronic diabetic foot ulcer with evidence of osteomyelitis present. Achilles Tendon Rupture 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, Calcaneus - afebrile, WBC still at 20k - blood cultures : pending wound culture: Staph - on Dapto + Zosyn day 2 ID consulted, appreciate the consult Ortho consulted, awaiting recommendations ESRD on peritoneal dialysis -consulted Nephrology Severe PAD-s/p recent vascular intervention last week s/p 3 stents placed. 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 DVT prop - on coumadin FULL CODE Dispo pending Current Inpatient Medications: Current Inpatient Medications Medications (Trade) Dose Ordered Sig/Andrei Route Start Time Stop Time Status Last Admin Dose Admin Acetaminophen (Tylenol Tab) 650 mg Q4H PRN PO 08/15/16 00:15 09/14/16 00:14 Polyethylene (Miralax Powder Packet) 17 gm DAILY PRN PO 08/15/16 00:15 09/14/16 00:14 Ondansetron HCl (Zofran Inj) 4 mg Q6H PRN IV 08/15/16 00:15 09/14/16 00:14 Insulin Aspart (novoLOG ASPART) SLIDING SCALE If C... ACHS SC 08/15/16 07:00 09/14/16 06:59 08/16/16 12:58 3 UNITS Glucose (Glucose 40% Gel) 15-30 GRAMS 15 GRAMS... UD PRN PO 08/15/16 00:15 09/14/16 00:14 Glucose (Glucose Chew Tab) 4-8 Tablets 4 Tabl... UD PRN PO 08/15/16 00:15 3/29/17 00:14 Dextrose (Dextrose 50% 50ML Syringe) 25-50ML OF 50% DW IV FOR... UD PRN IV 08/15/16 00:15 09/14/16 00:14 Glucagon (Glucagon Inj) 1 mg UD PRN SQ 08/15/16 00:15 09/14/16 00:14 Miscellaneous Information (Consult Glycemic Management Pharmacy) 1 ea DAILY PRN N/A 08/15/16 02:18 09/14/16 02:17 Acetazolamide (Diamox Tab) 250 mg BID PO 08/15/16 09:00 09/14/16 08:59 08/16/16 08:57 250 MG Aspirin (Ecotrin Tab) 81 mg DAILY PO 08/15/16 09:00 09/14/16 08:59 08/16/16 08:58 81 MG Calcium Acetate (Phoslo Cap) 667 mg AC PO 08/15/16 08:00 09/14/16 07:59 08/16/16 12:55 667 MG Carvedilol (Coreg Tab) 12.5 mg BID PO 08/15/16 09:00 09/14/16 08:59 08/16/16 08:58 12.5 MG Digoxin (Lanoxin Tab) 0.125 mg DAILY@1600 PO 08/15/16 16:00 09/14/16 15:59 08/15/16 15:46 0.125 MG Fish Oil ([place]-3 (Purified Fish Oil) Cap) 1 gm DAILY PO 08/15/16 09:00 09/14/16 08:59 08/16/16 08:57 1 GM Folic Acid (Folvite Tab) 1 mg DAILY PO 08/15/16 09:00 09/14/16 08:59 08/16/16 08:58 1 MG Furosemide (Lasix Tab) 80 mg DAILY PO 08/15/16 09:00 09/14/16 08:59 08/16/16 08:57 80 MG Lisinopril (Zestril Tab) 2.5 mg HS PO 08/15/16 21:00 09/14/16 20:59 Multivitamins (Multivitamin Tab) 1 tab DAILY PO 08/15/16 09:00 09/14/16 08:59 08/16/16 08:58 1 TAB Warfarin Sodium (Coumadin Tab) 3 mg DAILY@1600 PO 08/15/16 16:00 09/14/16 15:59 08/15/16 15:43 3 MG Ranolazine (Ranexa ER Tab) 500 mg BID PO 08/15/16 09:00 09/14/16 08:59 08/16/16 08:57 500 MG Cholecalciferol (Vitamin D Tab) 1,000 inter.unit QAM PO 08/15/16 09:00 09/14/16 08:59 08/16/16 08:56 1,000 INTER.UNIT Citalopram Hydrobromide (celeXA TAB) 20 mg QAM PO 08/15/16 09:00 09/14/16 08:59 08/16/16 08:58 20 MG Pantoprazole Sodium (Protonix Tab) 40 mg QAM PO 08/15/16 09:00 09/14/16 08:59 08/16/16 08:56 40 MG Piperacillin Sod/ Tazobactam Sod (Consult) 1 ea UD PRN N/A 08/15/16 03:00 09/14/16 02:59 Daptomycin 1 ea 1 ea UD PRN N/A 08/15/16 03:45 09/14/16 03:44 Piperacillin Sod/ Tazobactam Sod 3.375 gm/Dextrose 115 ml @ 28.75 mls/ hr Q12H IV 08/15/16 10:00 09/26/16 09:59 08/16/16 10:06 28.75 MLS/HR Daptomycin/Sodium Chloride (Cubicin IV/Nss 50ml) 60 ml @ 120 mls/hr Q48H IV 08/17/16 04:00 09/26/16 03:59 Morphine Sulfate (MoRPHine SULFATE INJ) 2 mg Q6H PRN IV 08/15/16 15:45 08/29/16 15:44 Tramadol HCl (Ultram Tab) 50 mg Q6H PRN PO 08/15/16 15:45 09/14/16 15:44 Insulin Glargine (Lantus Solostar Pen) SEE PROTOCOL Q12 SC 08/16/16 09:00 09/15/16 08:59 08/16/16 09:10 10 UNIT Epoetin Ever (Procrit Inj) 10,000 units TODAY@0900 SQ 08/16/16 09:00 08/16/16 18:00
[2016-08-16] MEDS: DIGOXIN 0.125 MG TAB PO SCH (16:40)
[2016-08-16] MEDS: WARFARIN SOD 3 MG TAB PO SCH (16:41)
[2016-08-16 20:30] VITALS: BP 121/68; PULSE 76; TEMP 37.1
[2016-08-16] MEDS: LISINOPRIL 2.5 MG TAB PO SCH (21:29)
[2016-08-16 23:41] VITALS: BP 92/50; PULSE 52; TEMP 37.3; O2SAT 98
[2016-08-17] VITALS (7 sets, daily range): BP systolic 89–127; BP diastolic 45–69; PULSE 55–83; TEMP 36.9–37.3; O2SAT 97–100
[2016-08-17] MEDS ORDERED: DAPTOMYCIN IV 500 MG in NSS 50ML IV SCH (04:00)
[2016-08-17 08:37] LABS: INR 3.1 (0.9-1.1); PROTHROMBIN TIME (PATIENT) 34.2 SECONDS (9.0-12.0)
[2016-08-17 08:59] LABS: BUN/CREATININE RATIO 11.3 (10-20); CALCIUM 8.2 mg/dl (8.5-10.1); CREATININE 3.8 mg/dl (0.60-1.40); POTASSIUM 3.5 mmol/L (3.5-5.1)
[2016-08-17] MEDS: CALCIUM ACETATE 667MG GELCAP PO SCH ×3 (08:59→17:47)
[2016-08-17 09:00] LABS: C-REACTIVE PROTEIN 10.1 mg/dl (0-0.29)
[2016-08-17] MEDS: AcetaZOLAMIDE 250 MG TAB PO SCH ×2 (09:00→21:09)
[2016-08-17] MEDS: CITALOPRAM 20 MG TAB PO SCH (09:00)
[2016-08-17] MEDS: CARVEDILOL 12.5 MG TAB PO SCH ×2 (09:00→21:08)
[2016-08-17] MEDS: ASPIRIN 81 MG ECTAB PO SCH (09:00)
[2016-08-17] MEDS: OMEGA-3 (PURIFIED FISH OIL) 1 GM CAP PO SCH (09:01)
[2016-08-17] MEDS: FUROSEMIDE 40 MG TAB PO SCH (09:01)
[2016-08-17] MEDS: MULTIVITAMIN TAB PO SCH (09:01)
[2016-08-17] MEDS: RANOLAZINE 500 MG ER TAB PO SCH ×2 (09:02→21:09)
[2016-08-17] MEDS: PANTOprazole SOD 40 MG TAB PO SCH (09:02)
[2016-08-17] MEDS: CHOLECALCIFEROL 1000 INTER.UNIT TAB PO SCH (09:02)
[2016-08-17] MEDS: INSULIN ASPART 100 UNITS/ML 3 ML PEN SC SCH ×4 (09:06→21:00)
[2016-08-17] MEDS: INSULIN GLARGINE SOLOSTAR 100 UNITS/ML 3 ML PEN SC SCH (09:07)
[2016-08-17] MEDS: PIPERACILL/TAZOBAC IV 3.375 GM in DEXTROSE 5% 100ML IV SCH (10:05)
[2016-08-17] MEDS ORDERED: CEFAZOLIN IV 2,000 MG in DEXTROSE 5% 50ML 50 ML IV SCH (10:30)
--- NOTE | 2016-08-17 10:47 | Nephrology Progress Note ---
Nephrology Progress Note Date of Service: Aug 17, 2016. Subjective 76 yo male with peritoneal dialysis who has achilles tendon rupture as well as osteo of the calcaneous. infectious disease following. on appropriate antibiotics. tolerating pd well. appetite is good but not used to the hospital food that he is getting. Objective Date Time Temp Pulse Resp B/P Pulse Ox O2 Delivery O2 Flow Rate FiO2 08/17/16 08:19 Room Air 08/17/16 08:02 37.3 55 12 92/52 98 Room Air 08/17/16 00:20 Room Air 08/16/16 23:41 37.3 52 17 92/50 98 Room Air 08/16/16 20:30 37.1 76 121/68 08/16/16 16:40 76 08/16/16 15:45 Room Air 08/16/16 15:32 36.9 83 16 102/63 100 Room Air Physical Exam: General-aaox3, more alert today Eyes-no scleral icterus ENT-mmm Neck-supple Lungs-clear Heart-regular Abdomen-pd catheter in place, soft, nontender Extremities-right heel ulcer Neuro-nonfocal, more alert Current Inpatient Medications Medications (Trade) Dose Ordered Sig/Andrei Route Start Time Stop Time Status Last Admin Dose Admin Acetaminophen (Tylenol Tab) 650 mg Q4H PRN PO 08/15/16 00:15 09/14/16 00:14 Polyethylene (Miralax Powder Packet) 17 gm DAILY PRN PO 08/15/16 00:15 09/14/16 00:14 Ondansetron HCl (Zofran Inj) 4 mg Q6H PRN IV 08/15/16 00:15 09/14/16 00:14 Insulin Aspart (novoLOG ASPART) SLIDING SCALE If C... ACHS SC 08/15/16 07:00 09/14/16 06:59 08/17/16 09:06 4 UNITS Glucose (Glucose 40% Gel) 15-30 GRAMS 15 GRAMS... UD PRN PO 08/15/16 00:15 09/14/16 00:14 Glucose (Glucose Chew Tab) 4-8 Tablets 4 Tabl... UD PRN PO 08/15/16 00:15 09/14/16 00:14 Dextrose (Dextrose 50% 50ML Syringe) 25-50ML OF 50% DW IV FOR... UD PRN IV 08/15/16 00:15 09/14/16 00:14 Glucagon (Glucagon Inj) 1 mg UD PRN SQ 08/15/16 00:15 09/14/16 00:14 Miscellaneous Information (Consult Glycemic Management Pharmacy) 1 ea DAILY PRN N/A 08/15/16 02:18 09/14/16 02:17 Acetazolamide (Diamox Tab) 250 mg BID PO 08/15/16 09:00 09/14/16 08:59 08/17/16 09:00 250 MG Aspirin (Ecotrin Tab) 81 mg DAILY PO 08/15/16 09:00 09/14/16 08:59 08/17/16 09:00 81 MG Calcium Acetate (Phoslo Cap) 667 mg AC PO 08/15/16 08:00 09/14/16 07:59 08/17/16 08:59 667 MG Carvedilol (Coreg Tab) 12.5 mg BID PO 08/15/16 09:00 09/14/16 08:59 08/17/16 09:00 12.5 MG Digoxin (Lanoxin Tab) 0.125 mg DAILY@1600 PO 08/15/16 16:00 09/14/16 15:59 08/16/16 16:40 0.125 MG Fish Oil ([place]-3 (Purified Fish Oil) Cap) 1 gm DAILY PO 08/15/16 09:00 09/14/16 08:59 08/17/16 09:01 1 GM Folic Acid (Folvite Tab) 1 mg DAILY PO 08/15/16 09:00 09/14/16 08:59 08/17/16 09:00 1 MG Furosemide (Lasix Tab) 80 mg DAILY PO 08/15/16 09:00 09/14/16 08:59 08/17/16 09:01 80 MG Lisinopril (Zestril Tab) 2.5 mg HS PO 08/15/16 21:00 09/14/16 20:59 08/16/16 21:29 2.5 MG Multivitamins (Multivitamin Tab) 1 tab DAILY PO 08/15/16 09:00 09/14/16 08:59 08/17/16 09:01 1 TAB Warfarin Sodium (Coumadin Tab) 3 mg DAILY@1600 PO 08/15/16 16:00 09/14/16 15:59 08/16/16 16:41 3 MG Ranolazine (Ranexa ER Tab) 500 mg BID PO 08/15/16 09:00 09/14/16 08:59 08/17/16 09:02 500 MG Cholecalciferol (Vitamin D Tab) 1,000 inter.unit QAM PO 08/15/16 09:00 09/14/16 08:59 08/17/16 09:02 1,000 INTER.UNIT Citalopram Hydrobromide (celeXA TAB) 20 mg QAM PO 08/15/16 09:00 09/14/16 08:59 08/17/16 09:00 20 MG Pantoprazole Sodium (Protonix Tab) 40 mg QAM PO 08/15/16 09:00 09/14/16 08:59 08/17/16 09:02 40 MG Morphine Sulfate (MoRPHine SULFATE INJ) 2 mg Q6H PRN IV 08/15/16 15:45 08/29/16 15:44 Tramadol HCl (Ultram Tab) 50 mg Q6H PRN PO 08/15/16 15:45 09/14/16 15:44 Insulin Glargine SEE PROTOCOL Q12 SC 08/16/16 09:00 09/15/16 08:59 08/17/16 09:07 15 UNIT Cefazolin Sodium/ Dextrose (Ancef Iv/D5 50ml) 60 ml @ 100 mls/hr Q8H IV 08/17/16 10:30 UNV Last 24 Hours Test 08/16/16 12:10 08/16/16 16:43 08/16/16 20:53 08/17/16 07:03 Bedside Glucose 144 mg/dl 108 mg/dl 112 mg/dl 217 mg/dl Test 08/17/16 08:10 Erythrocyte Sedimentation Rate 39 mm/hr Prothrombin Time 34.2 SECONDS Prothromb Time International Ratio 3.1 Sodium Level 140 mmol/L Potassium Level 3.5 mmol/L Chloride Level 103 mmol/L Carbon Dioxide Level 24 mmol/L Anion Gap 13.0 mmol/L Blood Urea Nitrogen 43 mg/dl Creatinine 3.80 mg/dl Est Creatinine Clear Calc Drug Dose 18.1 ml/min Estimated GFR () 16.8 Estimated GFR (Non- 14.5 BUN/Creatinine Ratio 11.3 Random Glucose 208 mg/dl Calcium Level 8.2 mg/dl C-Reactive Protein 10.10 mg/dl Hepatitis B Surface Antibody NEG Date/Time Source Procedure Growth Status 08/16/16 11:25 Blood Blood Culture Pending Received 08/16/16 11:25 Blood Blood Culture Pending Received Assessment & Plan ESRD-on greens and yellows. volume status appropriate. will continue current pd prescription. Anemia of renal failure-on procrit 10k units yesterday and hg levels are trending down. follow levels.
[2016-08-17] MEDS ORDERED: ANCEF PHARMACY CONSULT IN PROGRESS PRN (11:15)
[2016-08-17] MEDS ORDERED: INSULIN GLARGINE SOLOSTAR 100 UNITS/ML 3 ML PEN SC SCH (12:00)
--- NOTE | 2016-08-17 12:06 | Pharmacy Progress Note ---
Glycemic Control: Progress Nt Date of Service Aug 17, 2016. Scope Glycemic Pharmacist consulted by Dr Hernandez on 08/15/16 for glycemic control and to write orders per [facility] inpatient glycemic control protocol. Objective Accuchecks BSG (last 24hrs): Test 08/16/16 12:10 08/16/16 16:43 08/16/16 20:53 08/17/16 07:03 Bedside Glucose 144 mg/dl (70-99) 108 mg/dl (70-99) 112 mg/dl (70-99) 217 mg/dl (70-99) Test 08/17/16 08:10 08/17/16 11:06 Random Glucose 208 mg/dl (70-99) Bedside Glucose 223 mg/dl (70-99) Laboratory Data (last 24hrs) Test 08/17/16 08:10 Anion Gap 13.0 mmol/L BUN/Creatinine Ratio 11.3 Blood Urea Nitrogen 43 mg/dl Creatinine 3.80 mg/dl Potassium Level 3.5 mmol/L Sodium Level 140 mmol/L HbA1c: Test 08/15/16 05:50 Hemoglobin A1c 6.4 % (4.5-5.6) H Recent Pertinent Medications Outpatient Anti-diabetic Regimen: * Lantus 70 units SQ q 24 hours * Humalog sliding scale * CF: 40mg/dL/unit * Goal range 110-140mg/dL * A1c = 6.4 % 07/2016 The patient is currently receiving: * Basal insulin: Lantus 10 units SQ BID (received half dose last evening due to BSG of 112mg/dL) * Correctional Insulin: NovoLog Correction per scale AC/HS Goal Range: Low 110 mg/dL - High 140 mg/dL Correction Factor: 30 mg/dL/unit * Prandial insulin: Per carb ratio of 1 unit per 15 grams CHO consumed Risk Factors for Insulin Resistance: * Infection: Daptomycin/Zosyn for a chronic wound/osteo --> cefazolin q12 hours * Diet: T2DM/renal Assessment & Plan ASSESSMENT: * ADA & AACE recommend a goal blood sugar range 140-180 mg/dl for the majority of critically ill & non-critically ill patients. However, more stringent targets may be selected in individual cases. 08/15/16 * 76 y/o type 2 diabetic who uses quite large doses of Lantus and sliding scale NovoLog as an outpatient. * It is recorded that Mr. Grant took 50 units on 08/14 (the day prior to admission) * BSGs have since been below goal range * Concerning for hypoglycemia as an outpatient based on both this and A1c of 6.4 % * Patient has ESRD and receives peripheral dialysis - this may alter the A1c and make it less reliable * Currently, basal inulin is on hold to avoid acute hypoglycemia * NovoLog continues, however will remove prandial coverage until BSGs are euglycemic 08/16/16 * BSGs have began to rebound from large Lantus dose on 08/14 and we are ready to re-initiate basal insulin (at a reduced dose) * Lantus 10 units SQ BID - may increase to 15 units BID if BSGs continue to be elevated (weight-based dosing) * NovoLog now requiring prandial coverage as BSGs begin to rise * add carb ratio * Peritoneal dialysis today - may contribute to varying degrees of insulin sensitivity 08/17/16 * BSGs no longer below goal range and are starting to trend upwards (likely large home dose of Lantus is wearing off) * start to titrate Lantus toward home regimen (but slightly reduced since hypoglycemia occurred with 50 units) * Historically, the patient tolerated NovoLog with a CF 30mg/dL/unit and a CR 1: 10 * begin these NovoLog parameters at this time for tighter BSG control PLAN FOR INPATIENT GLYCEMIC CONTROL: * Lantus 15 units SQ given this AM * Give an addition dose of 15 units SQ with lunch * Begin Lantus 30 units SQ q AM on 08/18/16 * dose reduced if BSG below 120mg/dL * dose increased if BSG is above 180mg/dL * NovoLog AC and HS * Correction factor: 30mg/dL/unit * Carb ratio: 1 unit per 10 g of CHO consumed * Goal range: 110-140mg/dL RECOMMENDATIONS FOR DISCHARGE: * may benefit from smaller basal insulin dose (50-70 units causes near hypoglycemia) * difficult to assess secondary to ESRD and possible inaccuracy of A1c * Please note that the plan above was derived based on current level of insulin resistance and hospital stress. These recommendations are appropriate for inpatient admission only. Plan of care upon discharge will need to be reassessed to avoid potential outpatient hypo/hyperglycemia. Thank you.
[2016-08-17 15:16] LABS: BASO % 0.3 %; BASO ABS # 0.05 K/uL (0-0.2); EOS % 2.1 %; HEMATOCRIT 24.3 % (42-52); IG% 0.4 %; LYMPH % 9.3 %; LYMPH ABS # 1.64 K/uL (1.2-3.4); MEAN CELL VOLUME 105.7 fL (80-100); MEAN CORPUSCULAR HGB CONC 31.3 g/dl (32-36); MEAN PLATELET VOLUME 9.9 fL (7.4-10.4); MONO % 7.8 %; NEUT % 80.1 %; PLATELET COUNT 242 K/uL (130-400); WHITE BLOOD COUNT 17.69 K/uL (4.8-10.8)
--- NOTE | 2016-08-17 15:48 | Infectious Disease Progress Nt ---
Progress Note Date of Service Aug 17, 2016. Subjective Pt evaluation today including: conversation w/ patient, conversation w/ family (son), physical exam, chart review, lab review, review of studies, review of inpatient medication list ESR this morning increased to 39, but CRP trending down at 10.10 today. CBC w/ diff not repeated this morning. Wound cultures growing MSSA. Blood cultures pending. The patient is currently on IV Daptomycin and Zosyn. He states that he has continued pain in the right heel when it is manipulated but otherwise his pain is controlled. I spoke with nursing who stated that orthopedics is planning intervention Monday. The patient is tolerating his abx well. All Other Systems: Reviewed and Negative Medications Current Inpatient Medications Medications (Trade) Dose Ordered Sig/Andrei Route Start Time Stop Time Status Last Admin Dose Admin Acetaminophen (Tylenol Tab) 650 mg Q4H PRN PO 08/15/16 00:15 09/14/16 00:14 Polyethylene (Miralax Powder Packet) 17 gm DAILY PRN PO 08/15/16 00:15 09/14/16 00:14 Ondansetron HCl (Zofran Inj) 4 mg Q6H PRN IV 08/15/16 00:15 09/14/16 00:14 Insulin Aspart (novoLOG ASPART) SLIDING SCALE If C... ACHS SC 08/15/16 07:00 09/14/16 06:59 08/17/16 12:48 7 UNITS Glucose (Glucose 40% Gel) 15-30 GRAMS 15 GRAMS... UD PRN PO 08/15/16 00:15 09/14/16 00:14 Glucose (Glucose Chew Tab) 4-8 Tablets 4 Tabl... UD PRN PO 08/15/16 00:15 09/14/16 00:14 Dextrose (Dextrose 50% 50ML Syringe) 25-50ML OF 50% DW IV FOR... UD PRN IV 08/15/16 00:15 09/14/16 00:14 Glucagon (Glucagon Inj) 1 mg UD PRN SQ 08/15/16 00:15 09/14/16 00:14 Miscellaneous Information (Consult Glycemic Management Pharmacy) 1 ea DAILY PRN N/A 08/15/16 02:18 09/14/16 02:17 Acetazolamide (Diamox Tab) 250 mg BID PO 08/15/16 09:00 09/14/16 08:59 08/17/16 09:00 250 MG Aspirin (Ecotrin Tab) 81 mg DAILY PO 08/15/16 09:00 09/14/16 08:59 08/17/16 09:00 81 MG Calcium Acetate (Phoslo Cap) 667 mg AC PO 08/15/16 08:00 09/14/16 07:59 08/17/16 12:46 667 MG Carvedilol (Coreg Tab) 12.5 mg BID PO 08/15/16 09:00 09/14/16 08:59 08/17/16 09:00 12.5 MG Digoxin (Lanoxin Tab) 0.125 mg DAILY@1600 PO 08/15/16 16:00 09/14/16 15:59 08/16/16 16:40 0.125 MG Fish Oil ([place]-3 (Purified Fish Oil) Cap) 1 gm DAILY PO 08/15/16 09:00 09/14/16 08:59 08/17/16 09:01 1 GM Folic Acid (Folvite Tab) 1 mg DAILY PO 08/15/16 09:00 09/14/16 08:59 08/17/16 09:00 1 MG Furosemide (Lasix Tab) 80 mg DAILY PO 08/15/16 09:00 09/14/16 08:59 08/17/16 09:01 80 MG Lisinopril (Zestril Tab) 2.5 mg HS PO 08/15/16 21:00 09/14/16 20:59 08/16/16 21:29 2.5 MG Multivitamins (Multivitamin Tab) 1 tab DAILY PO 08/15/16 09:00 09/14/16 08:59 08/17/16 09:01 1 TAB Warfarin Sodium (Coumadin Tab) 3 mg DAILY@1600 PO 08/15/16 16:00 09/14/16 15:59 08/16/16 16:41 3 MG Ranolazine (Ranexa ER Tab) 500 mg BID PO 08/15/16 09:00 09/14/16 08:59 08/17/16 09:02 500 MG Cholecalciferol (Vitamin D Tab) 1,000 inter.unit QAM PO 08/15/16 09:00 09/14/16 08:59 08/17/16 09:02 1,000 INTER.UNIT Citalopram Hydrobromide (celeXA TAB) 20 mg QAM PO 08/15/16 09:00 09/14/16 08:59 08/17/16 09:00 20 MG Pantoprazole Sodium (Protonix Tab) 40 mg QAM PO 08/15/16 09:00 09/14/16 08:59 08/17/16 09:02 40 MG Morphine Sulfate (MoRPHine SULFATE INJ) 2 mg Q6H PRN IV 08/15/16 15:45 08/29/16 15:44 Tramadol HCl (Ultram Tab) 50 mg Q6H PRN PO 08/15/16 15:45 09/14/16 15:44 Miscellaneous Information 1 ea 1 ea UD PRN N/A 08/17/16 11:15 09/16/16 11:14 Cefazolin Sodium/ Dextrose (Ancef Iv/D5 50ml) 52.5 ml @ 105 mls/hr Q12 IV 08/17/16 21:00 09/28/16 20:59 Insulin Glargine (Lantus Solostar Pen) SEE PROTOCOL DAILY SC 08/18/16 09:00 09/17/16 08:59 Objective Vital Signs Date Time Temp Pulse Resp B/P Pulse Ox O2 Delivery O2 Flow Rate FiO2 08/17/16 15:19 36.9 68 16 94/55 99 Room Air 08/17/16 09:05 37.3 55 12 92/52 08/17/16 08:19 Room Air 08/17/16 08:02 37.3 55 12 92/52 98 Room Air 08/17/16 00:20 Room Air 08/16/16 23:41 37.3 52 17 92/50 98 Room Air 08/16/16 20:30 37.1 76 121/68 08/16/16 16:40 76 08/16/16 15:45 Room Air Physical Exam General Appearance: WD/WN, no apparent distress Eyes: normal inspection, sclerae normal ENT: hearing grossly normal Neck: supple, trachea midline Respiratory/Chest: no respiratory distress, no accessory muscle use Cardiovascular: regular rate, rhythm Extremities: + pertinent finding (dressing on right heel. Drainage noted. Surrounding erythema.) Neurologic/Psychiatric: alert, normal mood/affect Skin: warm/dry Laboratory Results RUN DATE: 08/17/16 [facility] PAGE 1 RUN TIME: 1113 Specimen Inquiry PATIENT: SAM JONES Harry LOC: ELISA U # : [id number] AGE/SX: 76/M ROOM: [facility] REG : 08/15/[address]: Marco A Moya MD : 1940 BED: 1 DIS : STATUS: ADM IN TLOC: SPEC #: [id number] MYRTLE: 08/15/16 STATUS: COMP REQ #: [id number] RECD: 08/15/[address]: Lauren Hernandez DO SOURCE: TISSUE ENTR: 08/15/[address] [facility] DR: Shruthi Whitaker MD [facility] Carl HSU Bradley A., D.O. Bell, Evan T MD Lavery, Doriann M.D. Patel, Roxy., S ORDERED: CINTHYA HOUSE CUL/YRIS COMMENTS: Has Specimen Been Obtained/Collected? Y Procedure Result Verified Site GRAM STAIN Final 08/15/16 RESULT FEW WBCs SEEN MODERATE GRAM POSITIVE COCCI DEEP WOUND CULTURE Final 08/17/16 Organism 1 STAPHYLOCOCCUS AUREUS QUANITY MANY SENS SENSITIVITY TO FOLLOW 1. STAPHYLOCOCCUS AUREUS Target Route Dose RX AB Cost M.I.C. IQ ------ ----- ------ -- ------ -------- - ------ TRIMET/SULFA S <=0.5/ 9.5 * OXACILLIN S 0.5 VANCOMYCIN S 2 ERYTHROMYCIN S <=0.5 TETRACYCLINE S <=4 CLINDAMYCIN S <=0.5 DAPTOMYCIN S <=0.5 S = SENSITIVE I = INTERMEDIATE R = RESISTANT Item Value Date Time Blood Culture Received 08/16/16 1125 Blood Pending Blood Culture Received 08/16/16 1125 Blood Pending Gram Stain - Final Complete 08/15/16 0215 Tissue Heel , Right Gram Stain - Final Complete 08/15/16 0215 Skin Heel , Right Last 24 Hours Test 08/16/16 16:43 08/16/16 20:53 08/17/16 07:03 08/17/16 08:10 Bedside Glucose 108 mg/dl 112 mg/dl 217 mg/dl White Blood Count 17.69 K/uL Red Blood Count 2.30 M/uL Hemoglobin 7.6 g/dL Hematocrit 24.3 % Mean Corpuscular Volume 105.7 fL Mean Corpuscular Hemoglobin 33.0 pg Mean Corpuscular Hemoglobin Concent 31.3 g/dl Platelet Count 242 K/uL Mean Platelet Volume 9.9 fL Neutrophils (%) (Auto) 80.1 % Lymphocytes (%) (Auto) 9.3 % Monocytes (%) (Auto) 7.8 % Eosinophils (%) (Auto) 2.1 % Basophils (%) (Auto) 0.3 % Neutrophils # (Auto) 14.18 K/uL Lymphocytes # (Auto) 1.64 K/uL Monocytes # (Auto) 1.38 K/uL Eosinophils # (Auto) 0.37 K/uL Basophils # (Auto) 0.05 K/uL RDW Standard Deviation 60.5 fL RDW Coefficient of Variation 15.7 % Immature Granulocyte % (Auto) 0.4 % Immature Granulocyte # (Auto) 0.07 K/uL Erythrocyte Sedimentation Rate 39 mm/hr Prothrombin Time 34.2 SECONDS Prothromb Time International Ratio 3.1 Sodium Level 140 mmol/L Potassium Level 3.5 mmol/L Chloride Level 103 mmol/L Carbon Dioxide Level 24 mmol/L Anion Gap 13.0 mmol/L Blood Urea Nitrogen 43 mg/dl Creatinine 3.80 mg/dl Est Creatinine Clear Calc Drug Dose 18.1 ml/min Estimated GFR () 16.8 Estimated GFR (Non- 14.5 BUN/Creatinine Ratio 11.3 Random Glucose 208 mg/dl Calcium Level 8.2 mg/dl C-Reactive Protein 10.10 mg/dl Hepatitis B Surface Antibody NEG Test 08/17/16 11:06 Bedside Glucose 223 mg/dl Assessment and Plan Patient with right distal Achilles tendon rupture, overlying wound, and 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 Currently the patient is on IV Daptomycin and Zosyn. Cultures growing MSSA. Will change Daptomycin and Zosyn to IV Ancef. Anticipate orthopedic intervention with the right heel osteomyelitis. Awaiting recommendations. Blood cultures pending. Will also repeat CBC w/diff with continued leukocytosis and low Hgb. We will follow. Plan: 1. D/C Daptomycin, Zosyn 2. Start IV Ancef 3. Await ortho recs 4. Repeat CBC w/diff PROVIDER ADDENDUM: Patient reviewed with Ms. Ayala. Agree with above assessment.
[2016-08-17] MEDS: WARFARIN SOD 3 MG TAB PO SCH (16:00)
[2016-08-17 16:25] LABS: ANISOCYTOSIS PRESENT; COMPLETE YES; ECHINOCYTES 1+
--- NOTE | 2016-08-17 16:30 | Orthopedic Progress Note ---
Orthopedic Progress Note Date of Service Aug 17, 2016. Subjective Additional Notes: Pt resting comfortably. Family present. No complaints at present time. Objective Right heel dressing peeled back. Black eschar noted over the heel with mild drainage and some erythema. Aquacel and current dressing reapplied and new kerlix added. Date Time Temp Pulse Resp B/P Pulse Ox O2 Delivery O2 Flow Rate FiO2 08/17/16 16:01 73 89/45 08/17/16 15:19 36.9 68 16 94/55 99 Room Air 08/17/16 09:05 37.3 55 12 92/52 08/17/16 08:19 Room Air 08/17/16 08:02 37.3 55 12 92/52 98 Room Air 08/17/16 00:20 Room Air 08/16/16 23:41 37.3 52 17 92/50 98 Room Air 08/16/16 20:30 37.1 76 121/68 08/16/16 16:40 76 Laboratory Results 24 Hours: Test 08/17/16 08:10 White Blood Count 17.69 K/uL Red Blood Count 2.30 M/uL Hemoglobin 7.6 g/dL Hematocrit 24.3 % Mean Corpuscular Volume 105.7 fL Mean Corpuscular Hemoglobin 33.0 pg Mean Corpuscular Hemoglobin Concent 31.3 g/dl Platelet Count 242 K/uL Mean Platelet Volume 9.9 fL Neutrophils (%) (Auto) 80.1 % Lymphocytes (%) (Auto) 9.3 % Monocytes (%) (Auto) 7.8 % Eosinophils (%) (Auto) 2.1 % Basophils (%) (Auto) 0.3 % Neutrophils # (Auto) 14.18 K/uL Lymphocytes # (Auto) 1.64 K/uL Monocytes # (Auto) 1.38 K/uL Eosinophils # (Auto) 0.37 K/uL Basophils # (Auto) 0.05 K/uL Prothromb Time International Ratio 3.1 Prothrombin Time 34.2 SECONDS Additional Notes: MRI OF THE RIGHT ANKLE WITHOUT CONTRAST CLINICAL HISTORY: Right ankle pain. Evaluate for ruptured Achilles tendon. Open sores. COMPARISON STUDY: Right foot radiographs May 26, 2016 and August 14, 2016. TECHNIQUE: Utilizing a 1.5 Madelin magnet and dedicated coil, multiplanar, multi echo imaging of the right ankle was performed without IV contrast. FINDINGS: There is a complete tear of the distal Achilles tendon at its insertion. The Achilles is retracted by approximately 3 cm. The tendon itself appears unremarkable without evidence for significant tendinopathy. Of note, there is a soft tissue defect consistent with a wound overlying the posterior calcaneus. There is a moderate increased T2 signal and diminished T1 signal within the posterior aspect of the calcaneus. There is evidence for bone loss within the posterior aspect of the calcaneus, best shown on the axial images. This study is compromised by motion artifact. Plantar fascia is intact although there is thickening of the proximal plantar fascia. Talar dome is intact. Intrinsic ligaments of the right ankle are suboptimally assessed on this examination. Visualized portions of the flexor, extensor and peroneal tendons appear intact. IMPRESSION: 1. Rupture of the distal Achilles tendon at its insertion with 3 cm of tendon retraction. 2. Wound overlying the posterior calcaneus with abnormal marrow signal within the posterior calcaneus and associated bone loss. The osseous findings raise the possibility of osteomyelitis which may have predisposed to Achilles rupture. A posttraumatic etiology could appear similar although is considered somewhat less likely. Clinical correlation for evidence of osteomyelitis is recommended. Electronically signed by: Ahsan Choi M.D. 08/14/2016 10:31 PM Dictated Date/Time: 08/14/2016 10:24 PM Assessment & Plan Assessment: LIkely Osteomyelitis Right posterior heel with associated Achilles Tendon rupture. Patricia sensitive Staph Aureus growing Plan: Pt seen by Edelmira Contreras and Barber over the last few days. Discussed case with Dr Blandon. Plan for OR on Monday for I&D of Right heel with implantation of antibx beads. Pt will need a delayed repair of the Achilles Tendon once the infection has cleared. Currently INR too high for surgery and Hgb at 7.6. Will discuss with Medicine Service about holding Coumadin and need for transfusion. Pt on Cefazolin currently. Inhouse Planning Pain Management: Ultram, Morphine
[2016-08-17] MEDS: DIGOXIN 0.125 MG TAB PO SCH (17:50)
--- NOTE | 2016-08-17 20:22 | Progress Note ---
Medicine Progress Note Date & Time of Visit: Aug 17, 2016 at 20:17. Subjective patient seen resting, comfortable denies leg pain no dizzinesss, dyspnea, chest pain no other symptoms Objective Last 8 Hrs Date Time Temp Pulse Resp B/P Pulse Ox O2 Delivery O2 Flow Rate FiO2 08/17/16 19:49 37.2 83 17 116/69 97 Room Air 08/17/16 17:50 74 08/17/16 16:01 73 89/45 08/17/16 15:30 Room Air 08/17/16 15:19 36.9 68 16 94/55 99 Room Air Physical Exam: General- oriented x 3, not in distress, speaks in sentences Eyes-anicteric Neck- no JVD Lungs- clear breath sounds bilaterally, no rales Heart- normal rate, regular rhythm; no murmurs Abdomen- normal bowel sounds, soft, nontender Extremities- (+) eschar on the right heel no pretibial edema, no calf tenderness; peripheral pulses intact Neuro- alert, oriented x 3;no gross focal deficits Skin- warm & dry Laboratory Results: Last 24 Hours Test 08/16/16 20:53 08/17/16 07:03 08/17/16 08:10 08/17/16 11:06 Bedside Glucose 112 mg/dl 217 mg/dl 223 mg/dl White Blood Count 17.69 K/uL Red Blood Count 2.30 M/uL Hemoglobin 7.6 g/dL Hematocrit 24.3 % Mean Corpuscular Volume 105.7 fL Mean Corpuscular Hemoglobin 33.0 pg Mean Corpuscular Hemoglobin Concent 31.3 g/dl Platelet Count 242 K/uL Mean Platelet Volume 9.9 fL Neutrophils (%) (Auto) 80.1 % Lymphocytes (%) (Auto) 9.3 % Monocytes (%) (Auto) 7.8 % Eosinophils (%) (Auto) 2.1 % Basophils (%) (Auto) 0.3 % Neutrophils # (Auto) 14.18 K/uL Lymphocytes # (Auto) 1.64 K/uL Monocytes # (Auto) 1.38 K/uL Eosinophils # (Auto) 0.37 K/uL Basophils # (Auto) 0.05 K/uL RDW Standard Deviation 60.5 fL RDW Coefficient of Variation 15.7 % Immature Granulocyte % (Auto) 0.4 % Immature Granulocyte # (Auto) 0.07 K/uL Anisocytosis PRESENT Macrocytosis PRESENT Echinocytes 1+ Erythrocyte Sedimentation Rate 39 mm/hr Prothrombin Time 34.2 SECONDS Prothromb Time International Ratio 3.1 Sodium Level 140 mmol/L Potassium Level 3.5 mmol/L Chloride Level 103 mmol/L Carbon Dioxide Level 24 mmol/L Anion Gap 13.0 mmol/L Blood Urea Nitrogen 43 mg/dl Creatinine 3.80 mg/dl Est Creatinine Clear Calc Drug Dose 18.1 ml/min Estimated GFR () 16.8 Estimated GFR (Non- 14.5 BUN/Creatinine Ratio 11.3 Random Glucose 208 mg/dl Calcium Level 8.2 mg/dl C-Reactive Protein 10.10 mg/dl Hepatitis B Surface Antibody NEG Test 08/17/16 17:11 Bedside Glucose 138 mg/dl Assessment & Plan 76 yoM with multiple comorbidities presents after trauma to R heel causing acute Achilles tendon rupture in addition to a chronic diabetic foot ulcer with evidence of osteomyelitis present. 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 - Hg 7.6 may need to transfuse to raise Hg >8 in anticipation for surgery ESRD on peritoneal dialysis -consulted Nephrology Severe PAD-s/p recent vascular intervention last week s/p 3 stents placed. CAD s/p CABG -stable, cont medical management of CAD - hold Lisinopril for marginal BP Chronic systolic heart failure -compensated, cont diuretics DM II -ISS/Lantus, glycemic pharmacy consult placed History of Prostate Cancer Depression-cont Celexa DVT prop - on coumadin FULL CODE Dispo pending Current Inpatient Medications: Current Inpatient Medications Medications (Trade) Dose Ordered Sig/Andrei Route Start Time Stop Time Status Last Admin Dose Admin Acetaminophen (Tylenol Tab) 650 mg Q4H PRN PO 08/15/16 00:15 09/14/16 00:14 Polyethylene (Miralax Powder Packet) 17 gm DAILY PRN PO 08/15/16 00:15 09/14/16 00:14 Ondansetron HCl (Zofran Inj) 4 mg Q6H PRN IV 08/15/16 00:15 09/14/16 00:14 Insulin Aspart (novoLOG ASPART) SLIDING SCALE If C... ACHS SC 08/15/16 07:00 09/14/16 06:59 08/17/16 17:47 3 UNITS Glucose (Glucose 40% Gel) 15-30 GRAMS 15 GRAMS... UD PRN PO 08/15/16 00:15 09/14/16 00:14 Glucose (Glucose Chew Tab) 4-8 Tablets 4 Tabl... UD PRN PO 08/15/16 00:15 09/14/16 00:14 Dextrose (Dextrose 50% 50ML Syringe) 25-50ML OF 50% DW IV FOR... UD PRN IV 08/15/16 00:15 09/14/16 00:14 Glucagon (Glucagon Inj) 1 mg UD PRN SQ 08/15/16 00:15 09/14/16 00:14 Miscellaneous Information (Consult Glycemic Management Pharmacy) 1 ea DAILY PRN N/A 08/15/16 02:18 09/14/16 02:17 Acetazolamide (Diamox Tab) 250 mg BID PO 08/15/16 09:00 09/14/16 08:59 08/17/16 09:00 250 MG Aspirin (Ecotrin Tab) 81 mg DAILY PO 08/15/16 09:00 09/14/16 08:59 08/17/16 09:00 81 MG Calcium Acetate (Phoslo Cap) 667 mg AC PO 08/15/16 08:00 09/14/16 07:59 08/17/16 17:47 667 MG Carvedilol (Coreg Tab) 12.5 mg BID PO 08/15/16 09:00 09/14/16 08:59 08/17/16 09:00 12.5 MG Digoxin (Lanoxin Tab) 0.125 mg DAILY@1600 PO 08/15/16 16:00 09/14/16 15:59 08/17/16 17:50 0.125 MG Fish Oil ([place]-3 (Purified Fish Oil) Cap) 1 gm DAILY PO 08/15/16 09:00 09/14/16 08:59 08/17/16 09:01 1 GM Folic Acid (Folvite Tab) 1 mg DAILY PO 08/15/16 09:00 09/14/16 08:59 08/17/16 09:00 1 MG Furosemide (Lasix Tab) 80 mg DAILY PO 08/15/16 09:00 09/14/16 08:59 08/17/16 09:01 80 MG Multivitamins (Multivitamin Tab) 1 tab DAILY PO 08/15/16 09:00 09/14/16 08:59 08/17/16 09:01 1 TAB Ranolazine (Ranexa ER Tab) 500 mg BID PO 08/15/16 09:00 09/14/16 08:59 08/17/16 09:02 500 MG Cholecalciferol (Vitamin D Tab) 1,000 inter.unit QAM PO 08/15/16 09:00 09/14/16 08:59 08/17/16 09:02 1,000 INTER.UNIT Citalopram Hydrobromide (celeXA TAB) 20 mg QAM PO 08/15/16 09:00 09/14/16 08:59 08/17/16 09:00 20 MG Pantoprazole Sodium (Protonix Tab) 40 mg QAM PO 08/15/16 09:00 09/14/16 08:59 08/17/16 09:02 40 MG Morphine Sulfate (MoRPHine SULFATE INJ) 2 mg Q6H PRN IV 08/15/16 15:45 08/29/16 15:44 Tramadol HCl (Ultram Tab) 50 mg Q6H PRN PO 08/15/16 15:45 09/14/16 15:44 Miscellaneous Information 1 ea 1 ea UD PRN N/A 08/17/16 11:15 09/16/16 11:14 Cefazolin Sodium/ Dextrose (Ancef Iv/D5 50ml) 52.5 ml @ 105 mls/hr Q12 IV 08/17/16 21:00 09/28/16 20:59 Insulin Glargine (Lantus Solostar Pen) SEE PROTOCOL DAILY SC 08/18/16 09:00 09/17/16 08:59
[2016-08-17] MEDS: CEFAZOLIN IV 500 MG in DEXTROSE 5% 50ML 50 ML IV SCH (21:08)
[2016-08-18] VITALS (19 sets, daily range): BP systolic 90–127; BP diastolic 49–68; PULSE 50–81; TEMP 36.5–37; O2SAT 97–100
--- NOTE | 2016-08-18 00:51 | ORTHOPEDIC CONSULTATION ---
DATE OF CONSULTATION: 08/16/2016 This is a 76-year-old gentleman, seen on 08/16/2016 at the request of Dr. Roxy Redman and the medical service for complaints of right posterior heel necrosis with spontaneous rupture of the Achilles tendon. The patient was being treated for a necrotic wound on the posterior aspect of his right calcaneus for some period of time and went to stand up out of his recliner chair at home, made a turn to walk, but his right foot stayed in place. He heard and felt a large pop in the posterior aspect of his right heel and then, was unable to walk. He recalled no antecedent trauma. He had a revascularization procedure on his right leg approximately a week ago for severe peripheral artery disease and had 3 stents placed. He is being followed for his chronic posterior heel wound at the wound clinic regularly and his wound had been debrided 2 days prior to the time of his Achilles rupture, which occurred on 08/15/2016. He noted increased bleeding at the site after his last debridement. The patient has had multiple toe amputations prior to this episode. PAST MEDICAL HISTORY: Aortic stenosis, Afib with coronary artery disease, congestive heart failure, depression, dialysis, diabetes mellitus type 2, end-stage renal disease, hyperlipidemia, hypertension, peripheral artery disease, prostate cancer. PAST SURGICAL HISTORY: Colonoscopy, bilateral great toe amputations, cardiac artery stent, radical prostatectomy, splenectomy, cataract surgery, dental surgery, AVR, bioprosthetic CABG x5, mitral valve replacement and revascularization of right lower extremity with stenting. ALLERGIES: No known drug allergies. MEDICATIONS: Please note the list provided in the medical record. SOCIAL HISTORY: Denies tobacco use, denies smokeless tobacco. Denies alcohol use. Denies drug use. He is and lives with his significant other. He is retired. PHYSICAL EXAMINATION: GENERAL: This is a 76-year-old gentleman seen in his hospital room. He is alert and oriented x3. Speech is clear and fluent. Affect is appropriate. He is eating breakfast, with the nurse present. EXTREMITIES: Examination of the lower extremities demonstrates scant hair growth, bilateral lower extremities. He has a bandage on the posterior aspect of his right heel. After removal of the bandage, there is noted to be Aquacel overlying an area of wound necrosis over his posterior heel tuberosity with purulent discharge. No obvious foul odor. Some minor granulation tissue is noted with, what appears to be, exposed bone with an immature clot formation. He has a defect in his distal Achilles insertion, which is palpable. Pedal pulses are nonpalpable bilaterally. Feet are warm. Cap refill is approximately 3 seconds bilaterally. He has weak plantar flexion strength on the right, 3+/5 compared to 5/5 on the left. Dorsiflexion is 4+/5, inversion is 4+/5, eversion is 4/5 on the right. Radiographs and MRI were reviewed, noting distal avulsion of the Achilles with, what appears to be, an avulsion fracture fragment of the calcaneus with marrow edema, which enhances on T2 imaging, consistent with likely osteomyelitis of the calcaneus with soft tissue loss over the posterior heel tuberosity. Osteopenia is evident on the plain films. LABORATORIES: Reviewed, noting white blood count 19.6, hemoglobin 8.6, hematocrit 27.1, platelet count 236 at the time of admission. C-reactive protein 9.16. IMPRESSION: 1. Osteomyelitis, right calcaneus. 2. Distal Achilles tendon rupture. 3. Avulsion fracture of the calcaneus. 4. Posterior heel wound necrosis. RECOMMENDATIONS: At this time, I would recommend continued IV antibiotics. The patient will require irrigation and debridement of the right heel wound necrosis with debridement of tissue and devitalized bone. The patient will also have Stimulan bead implantation with antibiotics. Will likely require approximately 6 weeks of IV antibiotics with possible staging for Achilles tendon repair, if indeed, soft tissue coverage is achievable with eradication of presumed osteomyelitis in the calcaneus. We will discuss further with the medical service. The patient will need to be optimized for surgery, as his INR is significantly elevated and his hemoglobin is diminished, which should be improved prior to surgery, if possible. Thank you for the opportunity to consult in the care of this patient, Alphonso Grant. HEMANT
--- NOTE | 2016-08-18 06:36 | Nephrology Progress Note ---
Nephrology Progress Note Date of Service: Aug 18, 2016. Subjective 76 yo male with peritoneal dialysis who has achilles tendon rupture as well as osteo of the calcaneous. on antibiotics. tentatively planned for OR on monday for debridement. pt is in good spirits. pain is well controlled. pt is comfortable. Objective Date Time Temp Pulse Resp B/P Pulse Ox O2 Delivery O2 Flow Rate FiO2 08/18/16 03:46 36.9 69 18 100/61 100 Room Air 08/17/16 23:50 Room Air 08/17/16 23:39 36.9 75 127/46 08/17/16 22:58 36.9 75 18 127/46 100 Room Air 08/17/16 19:49 37.2 83 17 116/69 97 Room Air 08/17/16 17:50 74 08/17/16 16:01 73 89/45 08/17/16 15:30 Room Air 08/17/16 15:19 36.9 68 16 94/55 99 Room Air 08/17/16 09:05 37.3 55 12 92/52 08/17/16 08:19 Room Air 08/17/16 08:02 37.3 55 12 92/52 98 Room Air Physical Exam: General-aaox3 Eyes-no scleral icterus ENT-mmm Neck-supple Lungs-cta Heart-rrr Abdomen-pd catheter in place, soft, nontender Extremities-right heel ulcer-wrapped Neuro-nonfocal Current Inpatient Medications Medications (Trade) Dose Ordered Sig/Andrei Route Start Time Stop Time Status Last Admin Dose Admin Acetaminophen (Tylenol Tab) 650 mg Q4H PRN PO 08/15/16 00:15 09/14/16 00:14 Polyethylene (Miralax Powder Packet) 17 gm DAILY PRN PO 08/15/16 00:15 09/14/16 00:14 Ondansetron HCl (Zofran Inj) 4 mg Q6H PRN IV 08/15/16 00:15 09/14/16 00:14 Insulin Aspart (novoLOG ASPART) SLIDING SCALE If C... ACHS SC 08/15/16 07:00 09/14/16 06:59 08/17/16 17:47 3 UNITS Glucose (Glucose 40% Gel) 15-30 GRAMS 15 GRAMS... UD PRN PO 2/27/17 00:15 09/14/16 00:14 Glucose (Glucose Chew Tab) 4-8 Tablets 4 Tabl... UD PRN PO 08/15/16 00:15 09/14/16 00:14 Dextrose (Dextrose 50% 50ML Syringe) 25-50ML OF 50% DW IV FOR... UD PRN IV 08/15/16 00:15 09/14/16 00:14 Glucagon (Glucagon Inj) 1 mg UD PRN SQ 08/15/16 00:15 09/14/16 00:14 Miscellaneous Information (Consult Glycemic Management Pharmacy) 1 ea DAILY PRN N/A 08/15/16 02:18 09/14/16 02:17 Acetazolamide (Diamox Tab) 250 mg BID PO 08/15/16 09:00 09/14/16 08:59 08/17/16 21:09 250 MG Aspirin (Ecotrin Tab) 81 mg DAILY PO 08/15/16 09:00 09/14/16 08:59 08/17/16 09:00 81 MG Calcium Acetate (Phoslo Cap) 667 mg AC PO 08/15/16 08:00 09/14/16 07:59 08/17/16 17:47 667 MG Carvedilol (Coreg Tab) 12.5 mg BID PO 08/15/16 09:00 09/14/16 08:59 08/17/16 21:08 12.5 MG Digoxin (Lanoxin Tab) 0.125 mg DAILY@1600 PO 08/15/16 16:00 09/14/16 15:59 08/17/16 17:50 0.125 MG Fish Oil (Winfred-3 (Purified Fish Oil) Cap) 1 gm DAILY PO 08/15/16 09:00 09/14/16 08:59 08/17/16 09:01 1 GM Folic Acid (Folvite Tab) 1 mg DAILY PO 08/15/16 09:00 09/14/16 08:59 08/17/16 09:00 1 MG Furosemide (Lasix Tab) 80 mg DAILY PO 08/15/16 09:00 09/14/16 08:59 08/17/16 09:01 80 MG Multivitamins (Multivitamin Tab) 1 tab DAILY PO 08/15/16 09:00 09/14/16 08:59 08/17/16 09:01 1 TAB Ranolazine (Ranexa ER Tab) 500 mg BID PO 08/15/16 09:00 09/14/16 08:59 08/17/16 21:09 500 MG Cholecalciferol (Vitamin D Tab) 1,000 inter.unit QAM PO 08/15/16 09:00 09/14/16 08:59 08/17/16 09:02 1,000 INTER.UNIT Citalopram Hydrobromide (celeXA TAB) 20 mg QAM PO 08/15/16 09:00 09/14/16 08:59 08/17/16 09:00 20 MG Pantoprazole Sodium (Protonix Tab) 40 mg QAM PO 08/15/16 09:00 09/14/16 08:59 08/17/16 09:02 40 MG Morphine Sulfate (MoRPHine SULFATE INJ) 2 mg Q6H PRN IV 08/15/16 15:45 08/29/16 15:44 Tramadol HCl (Ultram Tab) 50 mg Q6H PRN PO 08/15/16 15:45 09/14/16 15:44 Miscellaneous Information 1 ea 1 ea UD PRN N/A 08/17/16 11:15 09/16/16 11:14 Cefazolin Sodium/ Dextrose (Ancef Iv/D5 50ml) 52.5 ml @ 105 mls/hr Q12 IV 08/17/16 21:00 09/28/16 20:59 08/17/16 21:08 105 MLS/HR Insulin Glargine (Lantus Solostar Pen) SEE PROTOCOL DAILY SC 08/18/16 09:00 09/17/16 08:59 Last 24 Hours Test 08/17/16 07:03 08/17/16 08:10 08/17/16 11:06 08/17/16 17:11 Bedside Glucose 217 mg/dl 223 mg/dl 138 mg/dl White Blood Count 17.69 K/uL Red Blood Count 2.30 M/uL Hemoglobin 7.6 g/dL Hematocrit 24.3 % Mean Corpuscular Volume 105.7 fL Mean Corpuscular Hemoglobin 33.0 pg Mean Corpuscular Hemoglobin Concent 31.3 g/dl Platelet Count 242 K/uL Mean Platelet Volume 9.9 fL Neutrophils (%) (Auto) 80.1 % Lymphocytes (%) (Auto) 9.3 % Monocytes (%) (Auto) 7.8 % Eosinophils (%) (Auto) 2.1 % Basophils (%) (Auto) 0.3 % Neutrophils # (Auto) 14.18 K/uL Lymphocytes # (Auto) 1.64 K/uL Monocytes # (Auto) 1.38 K/uL Eosinophils # (Auto) 0.37 K/uL Basophils # (Auto) 0.05 K/uL RDW Standard Deviation 60.5 fL RDW Coefficient of Variation 15.7 % Immature Granulocyte % (Auto) 0.4 % Immature Granulocyte # (Auto) 0.07 K/uL Anisocytosis PRESENT Macrocytosis PRESENT Echinocytes 1+ Erythrocyte Sedimentation Rate 39 mm/hr Prothrombin Time 34.2 SECONDS Prothromb Time International Ratio 3.1 Sodium Level 140 mmol/L Potassium Level 3.5 mmol/L Chloride Level 103 mmol/L Carbon Dioxide Level 24 mmol/L Anion Gap 13.0 mmol/L Blood Urea Nitrogen 43 mg/dl Creatinine 3.80 mg/dl Est Creatinine Clear Calc Drug Dose 18.1 ml/min Estimated GFR () 16.8 Estimated GFR (Non- 14.5 BUN/Creatinine Ratio 11.3 Random Glucose 208 mg/dl Calcium Level 8.2 mg/dl C-Reactive Protein 10.10 mg/dl Hepatitis B Surface Antibody NEG Test 08/17/16 20:51 08/18/16 05:59 Bedside Glucose 104 mg/dl Assessment & Plan ESRD-on greens and yellows. volume status appropriate. will continue current pd prescription. 5 exchanges, 2 liter fill. no day dwell. Anemia of renal failure- hg levels trended down to 7.6, will continue procrit and redose again today. VERO: on phoslo and will follow phos levels intermittently.
[2016-08-18 06:42] LABS: BUN/CREATININE RATIO 10.5 (10-20); CALCIUM 7.7 mg/dl (8.5-10.1); CREATININE 4.1 mg/dl (0.60-1.40); POTASSIUM 3.2 mmol/L (3.5-5.1)
--- NOTE | 2016-08-18 07:54 | Orthopedic Progress Note ---
Orthopedic Progress Note Date of Service Aug 18, 2016. Subjective Denies: SOB, chest pain, complaints, light headedness, nausea / vomiting Additional Notes: Resting comfortably in bed. No current discomfort per patient. Objective calves soft nontender Waffle boots bilaterally and R LE wound dressing in place. R heel dressing with some drainage. No palpable pedal pulses with warm feet. + Prior great toe amputations B LE. Scant hair growth B LE. Date Time Temp Pulse Resp B/P Pulse Ox O2 Delivery O2 Flow Rate FiO2 08/18/16 06:46 36.5 75 19 93/53 100 Room Air 08/18/16 03:46 36.9 69 18 100/61 100 Room Air 08/17/16 23:50 Room Air 08/17/16 23:39 36.9 75 127/46 08/17/16 22:58 36.9 75 18 127/46 100 Room Air 08/17/16 19:49 37.2 83 17 116/69 97 Room Air 08/17/16 17:50 74 08/17/16 16:01 73 89/45 08/17/16 15:30 Room Air 08/17/16 15:19 36.9 68 16 94/55 99 Room Air 08/17/16 09:05 37.3 55 12 92/52 08/17/16 08:19 Room Air 08/17/16 08:02 37.3 55 12 92/52 98 Room Air Laboratory Results 24 Hours: Test 08/17/16 08:10 White Blood Count 17.69 K/uL Red Blood Count 2.30 M/uL Hemoglobin 7.6 g/dL Hematocrit 24.3 % Mean Corpuscular Volume 105.7 fL Mean Corpuscular Hemoglobin 33.0 pg Mean Corpuscular Hemoglobin Concent 31.3 g/dl Platelet Count 242 K/uL Mean Platelet Volume 9.9 fL Neutrophils (%) (Auto) 80.1 % Lymphocytes (%) (Auto) 9.3 % Monocytes (%) (Auto) 7.8 % Eosinophils (%) (Auto) 2.1 % Basophils (%) (Auto) 0.3 % Neutrophils # (Auto) 14.18 K/uL Lymphocytes # (Auto) 1.64 K/uL Monocytes # (Auto) 1.38 K/uL Eosinophils # (Auto) 0.37 K/uL Basophils # (Auto) 0.05 K/uL Prothromb Time International Ratio 3.1 Prothrombin Time 34.2 SECONDS Assessment & Plan Assessment: Likely Osteomyelitis Right posterior calcaneus, necrotic wound posterior heel, avulsion fracture superior calcaneus with associated recent onset Achilles Tendon rupture. Patricia sensitive Staph Aureus growing Elevated INR Anemia Plan: Plan for OR on Monday for I&D of Right heel, debridement of necrotic bone with implantation of Stimulan antibx beads. Pt will possibly need a delayed repair of the Achilles Tendon if the infection can be cleared and soft tissue coverage is possible. Currently INR too high for surgery and last Hgb at 7.6. Will discuss with Medicine Service about holding Coumadin and need for transfusion. Pt on Cefazolin currently. NPO after midnight if patient can be optimized for surgery on Monday08/19/2016 Inhouse Planning Pain Management: Ultram, Morphine
[2016-08-18] MEDS ORDERED: EPOETIN ALFA 10,000 UNITS/ML VIAL SQ SCH (08:00)
[2016-08-18] MEDS: AcetaZOLAMIDE 250 MG TAB PO SCH ×2 (09:03→21:59)
[2016-08-18] MEDS: CALCIUM ACETATE 667MG GELCAP PO SCH ×3 (09:04→17:12)
[2016-08-18] MEDS: OMEGA-3 (PURIFIED FISH OIL) 1 GM CAP PO SCH (09:04)
[2016-08-18] MEDS: CITALOPRAM 20 MG TAB PO SCH (09:04)
[2016-08-18] MEDS: ASPIRIN 81 MG ECTAB PO SCH (09:04)
[2016-08-18] MEDS: CHOLECALCIFEROL 1000 INTER.UNIT TAB PO SCH (09:05)
[2016-08-18] MEDS: PANTOprazole SOD 40 MG TAB PO SCH (09:05)
[2016-08-18] MEDS: MULTIVITAMIN TAB PO SCH (09:05)
[2016-08-18] MEDS: RANOLAZINE 500 MG ER TAB PO SCH ×2 (09:06→21:58)
[2016-08-18] MEDS: FUROSEMIDE 40 MG TAB PO SCH (09:06)
[2016-08-18] MEDS: CARVEDILOL 12.5 MG TAB PO SCH ×2 (09:06→21:56)
[2016-08-18] MEDS: CEFAZOLIN IV 500 MG in DEXTROSE 5% 50ML 50 ML IV SCH ×2 (09:15→23:49)
[2016-08-18] MEDS: INSULIN ASPART 100 UNITS/ML 3 ML PEN SC SCH ×4 (09:55→21:57)
[2016-08-18] MEDS: INSULIN GLARGINE SOLOSTAR 100 UNITS/ML 3 ML PEN SC SCH (09:56)
--- NOTE | 2016-08-18 10:01 | Progress Note ---
Medicine Progress Note Date & Time of Visit: Aug 18, 2016 at 09:53. Subjective patient seen sitting up in bed, alert, oriented x 2 comfortable states he feels fine denies dyspnea, chest pain, dizziness, nausea no leg pain no other symptoms Objective Last 8 Hrs Date Time Temp Pulse Resp B/P Pulse Ox O2 Delivery O2 Flow Rate FiO2 08/18/16 06:46 36.5 75 19 93/53 100 Room Air 08/18/16 03:46 36.9 69 18 100/61 100 Room Air Physical Exam: General- oriented x 3, not in distress, speaks in sentences Eyes-anicteric Neck- no JVD Lungs- clear breath sounds bilaterally, no rales/wheezes Heart- normal rate, regular rhythm; (+) 3/6 murmur Abdomen- normal bowel sounds, soft, nontender Extremities- (+) eschar on the right heel no pretibial edema, no calf tenderness; peripheral pulses intact Neuro- alert, oriented x 3;no gross focal deficits Skin- warm & dry Laboratory Results: Last 24 Hours Test 08/17/16 11:06 08/17/16 17:11 08/17/16 20:51 08/18/16 05:59 Bedside Glucose 223 mg/dl 138 mg/dl 104 mg/dl Sodium Level 138 mmol/L Potassium Level 3.2 mmol/L Chloride Level 101 mmol/L Carbon Dioxide Level 25 mmol/L Anion Gap 12.0 mmol/L Blood Urea Nitrogen 43 mg/dl Creatinine 4.10 mg/dl Est Creatinine Clear Calc Drug Dose 17.0 ml/min Estimated GFR () 15.3 Estimated GFR (Non- 13.2 BUN/Creatinine Ratio 10.5 Random Glucose 149 mg/dl Calcium Level 7.7 mg/dl Test 08/18/16 06:52 08/18/16 09:24 08/18/16 09:35 Bedside Glucose 176 mg/dl Assessment & Plan 76 year old male with history of CAD, CABG, CHF Systolic type, Mitral and Aortic Valve Replacement, A fib on Coumadin, ESRD, PAD, DM, HTN presenting with right foot pain. Achilles Tendon Rupture 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, Calcaneus - afebrile, WBC improving - blood cultures :negative wound culture: Staph, MSSA - on Dapto + Zosyn--> changed to Cefazolin Day 2 ID consulted, appreciate the consult Ortho consulted, possible washout on Monday Pre- Op Eval - INR pending will need to be <1.8 tomorrow may need Vit K , will monitor - Hg pending will need to be >8 tomorrow CAD s/p CABG -stable - hold Lisinopril for marginal BP - on Aspirin Atrial fibrillation - SR, HR controlled - continue Coreg and Digoxin - coumadin held s/p mitral and aortic valve replacements (Bioprosthetic) -on coumadin INR pending hold coumadin today in anticipation for surgery on Mon (per Ortho, INR 1.8 and below for surgery) Chronic systolic heart failure -compensated - continue diuretics for now Anemia-likely multifactorial but 2/2 mainly to ESRD - on Procrit. - Hg 7.6 may need to transfuse to raise Hg >8 in anticipation for surgery ESRD on peritoneal dialysis -consulted Nephrology Severe PAD-s/p recent vascular intervention last week s/p 3 stents placed. DM II -ISS/Lantus, glycemic pharmacy consult placed History of Prostate Cancer Depression-cont Celexa DVT prop - on coumadin (held for now) FULL CODE Dispo pending Current Inpatient Medications: Current Inpatient Medications Medications (Trade) Dose Ordered Sig/Andrei Route Start Time Stop Time Status Last Admin Dose Admin Acetaminophen (Tylenol Tab) 650 mg Q4H PRN PO 08/15/16 00:15 09/14/16 00:14 Polyethylene (Miralax Powder Packet) 17 gm DAILY PRN PO 08/15/16 00:15 09/14/16 00:14 Ondansetron HCl (Zofran Inj) 4 mg Q6H PRN IV 08/15/16 00:15 09/14/16 00:14 Insulin Aspart (novoLOG ASPART) SLIDING SCALE If C... ACHS SC 08/15/16 07:00 09/14/16 06:59 08/17/16 17:47 3 UNITS Glucose (Glucose 40% Gel) 15-30 GRAMS 15 GRAMS... UD PRN PO 08/15/16 00:15 09/14/16 00:14 Glucose (Glucose Chew Tab) 4-8 Tablets 4 Tabl... UD PRN PO 08/15/16 00:15 09/14/16 00:14 Dextrose (Dextrose 50% 50ML Syringe) 25-50ML OF 50% DW IV FOR... UD PRN IV 08/15/16 00:15 09/14/16 00:14 Glucagon (Glucagon Inj) 1 mg UD PRN SQ 08/15/16 00:15 09/14/16 00:14 Miscellaneous Information (Consult Glycemic Management Pharmacy) 1 ea DAILY PRN N/A 08/15/16 02:18 09/14/16 02:17 Acetazolamide (Diamox Tab) 250 mg BID PO 08/15/16 09:00 09/14/16 08:59 08/17/16 21:09 250 MG Aspirin (Ecotrin Tab) 81 mg DAILY PO 08/15/16 09:00 09/14/16 08:59 08/17/16 09:00 81 MG Calcium Acetate (Phoslo Cap) 667 mg AC PO 08/15/16 08:00 09/14/16 07:59 08/17/16 17:47 667 MG Carvedilol (Coreg Tab) 12.5 mg BID PO 08/15/16 09:00 09/14/16 08:59 08/17/16 21:08 12.5 MG Digoxin (Lanoxin Tab) 0.125 mg DAILY@1600 PO 08/15/16 16:00 09/14/16 15:59 08/17/16 17:50 0.125 MG Fish Oil (Rembert-3 (Purified Fish Oil) Cap) 1 gm DAILY PO 08/15/16 09:00 09/14/16 08:59 08/17/16 09:01 1 GM Folic Acid (Folvite Tab) 1 mg DAILY PO 08/15/16 09:00 09/14/16 08:59 08/17/16 09:00 1 MG Furosemide (Lasix Tab) 80 mg DAILY PO 08/15/16 09:00 09/14/16 08:59 08/17/16 09:01 80 MG Multivitamins (Multivitamin Tab) 1 tab DAILY PO 08/15/16 09:00 09/14/16 08:59 08/17/16 09:01 1 TAB Ranolazine (Ranexa ER Tab) 500 mg BID PO 08/15/16 09:00 09/14/16 08:59 08/17/16 21:09 500 MG Cholecalciferol (Vitamin D Tab) 1,000 inter.unit QAM PO 08/15/16 09:00 09/14/16 08:59 08/17/16 09:02 1,000 INTER.UNIT Citalopram Hydrobromide (celeXA TAB) 20 mg QAM PO 08/15/16 09:00 09/14/16 08:59 08/17/16 09:00 20 MG Pantoprazole Sodium (Protonix Tab) 40 mg QAM PO 08/15/16 09:00 09/14/16 08:59 08/17/16 09:02 40 MG Morphine Sulfate (MoRPHine SULFATE INJ) 2 mg Q6H PRN IV 08/15/16 15:45 08/29/16 15:44 Tramadol HCl (Ultram Tab) 50 mg Q6H PRN PO 08/15/16 15:45 09/14/16 15:44 Miscellaneous Information 1 ea 1 ea UD PRN N/A 08/17/16 11:15 09/16/16 11:14 Cefazolin Sodium/ Dextrose (Ancef Iv/D5 50ml) 52.5 ml @ 105 mls/hr Q12 IV 08/17/16 21:00 09/28/16 20:59 08/17/16 21:08 105 MLS/HR Insulin Glargine (Lantus Solostar Pen) SEE PROTOCOL DAILY SC 08/18/16 09:00 09/17/16 08:59 Epoetin Ever (Procrit Inj) 10,000 units TODAY@0800 SQ 08/18/16 08:00 08/18/16 23:59
[2016-08-18 10:05] LABS: HEMATOCRIT 23.6 % (42-52); MEAN CELL VOLUME 103.1 fL (80-100); MEAN CORPUSCULAR HEMOGLOBIN 32.3 pg (25-34); MEAN CORPUSCULAR HGB CONC 31.4 g/dl (32-36); MEAN PLATELET VOLUME 9.5 fL (7.4-10.4); PLATELET COUNT 233 K/uL (130-400); RED BLOOD COUNT 2.29 M/uL (4.7-6.1); WHITE BLOOD COUNT 14.31 K/uL (4.8-10.8)
[2016-08-18 10:21] LABS: PROTHROMBIN TIME (PATIENT) 49.5 SECONDS (9.0-12.0)
[2016-08-18 10:24] LABS: INR 4.4 (0.9-1.1)
--- NOTE | 2016-08-18 10:25 | Pharmacy Progress Note ---
Glycemic Control: Progress Nt Date of Service Aug 18, 2016. Scope Glycemic Pharmacist consulted by Dr Hernandez on 08/15/16 for glycemic control and to write orders per formerly [facility] inpatient glycemic control protocol. Objective Accuchecks BSG (last 24hrs): Test 08/17/16 11:06 08/17/16 17:11 08/17/16 20:51 08/18/16 05:59 Bedside Glucose 223 mg/dl (70-99) 138 mg/dl (70-99) 104 mg/dl (70-99) Random Glucose 149 mg/dl (70-99) Test 08/18/16 06:52 Bedside Glucose 176 mg/dl (70-99) Laboratory Data (last 24hrs) Test 08/18/16 05:59 Anion Gap 12.0 mmol/L BUN/Creatinine Ratio 10.5 Blood Urea Nitrogen 43 mg/dl Creatinine 4.10 mg/dl Potassium Level 3.2 mmol/L Sodium Level 138 mmol/L White Blood Count 14.31 K/uL HbA1c: Test 08/15/16 05:50 Hemoglobin A1c 6.4 % (4.5-5.6) H Recent Pertinent Medications Outpatient Anti-diabetic Regimen: * Lantus 70 units SQ q 24 hours * Humalog sliding scale * CF: 40mg/dL/unit * Goal range 110-140mg/dL * A1c = 6.4 % 07/2016 The patient is currently receiving: * Basal insulin: Lantus 30 units SQ daily * Correctional Insulin: NovoLog Correction per scale AC/HS Goal Range: Low 110 mg/dL - High 140 mg/dL Correction Factor: 30 mg/dL/unit * Prandial insulin: Per carb ratio of 1 unit per 10 grams CHO consumed Risk Factors for Insulin Resistance: * Infection: cefazolin q12 hours for osteo/chronic wound heel * Diet: T2DM/renal Assessment & Plan ASSESSMENT: * ADA & AACE recommend a goal blood sugar range 140-180 mg/dl for the majority of critically ill & non-critically ill patients. However, more stringent targets may be selected in individual cases. 08/15/16 * 76 y/o type 2 diabetic who uses quite large doses of Lantus and sliding scale NovoLog as an outpatient. * It is recorded that Mr. Grant took 50 units on 08/14 (the day prior to admission) * BSGs have since been below goal range * Concerning for hypoglycemia as an outpatient based on both this and A1c of 6.4 % * Patient has ESRD and receives peripheral dialysis - this may alter the A1c and make it less reliable * Currently, basal inulin is on hold to avoid acute hypoglycemia * NovoLog continues, however will remove prandial coverage until BSGs are euglycemic 08/16/16 * BSGs have began to rebound from large Lantus dose on 08/14 and we are ready to re-initiate basal insulin (at a reduced dose) * Lantus 10 units SQ BID - may increase to 15 units BID if BSGs continue to be elevated (weight-based dosing) * NovoLog now requiring prandial coverage as BSGs begin to rise * add carb ratio * Peritoneal dialysis today - may contribute to varying degrees of insulin sensitivity 08/17/16 * BSGs no longer below goal range and are starting to trend upwards (likely large home dose of Lantus is wearing off) * start to titrate Lantus toward home regimen (but slightly reduced since hypoglycemia occurred with 50 units) * Historically, the patient tolerated NovoLog with a CF 30mg/dL/unit and a CR 1: 10 * begin these NovoLog parameters at this time for tighter BSG control 08/18/16 * BSGs improved with increase in basal dose and tightened NovoLog parameters * continue same at this time * Possible OR tomorrow * may require a reduced dose in Lantus AM of OR - continue to follow and decide tomorrow AM based on fasting BSG PLAN FOR INPATIENT GLYCEMIC CONTROL: * Begin Lantus 30 units SQ q AM * dose reduced if BSG below 120mg/dL * dose increased if BSG is above 180mg/dL * NovoLog AC and HS * Correction factor: 30mg/dL/unit * Carb ratio: 1 unit per 10 g of CHO consumed * Goal range: 110-140mg/dL RECOMMENDATIONS FOR DISCHARGE: * may benefit from smaller basal insulin dose (50-70 units causes near hypoglycemia) * difficult to assess secondary to ESRD and possible inaccuracy of A1c * Please note that the plan above was derived based on current level of insulin resistance and hospital stress. These recommendations are appropriate for inpatient admission only. Plan of care upon discharge will need to be reassessed to avoid potential outpatient hypo/hyperglycemia. Thank you.
--- NOTE | 2016-08-18 11:41 | Infectious Disease Progress Nt ---
Progress Note Date of Service Aug 18, 2016. Subjective Pt evaluation today including: conversation w/ patient, physical exam, chart review, lab review, review of studies, review of inpatient medication list Creatinine was 4.10 this morning. INR was 4.4. Wound cultures continue to grow MSSA and are finalized. Blood cultures are showing NGTD. I reviewed orthopedic consultation and recommendations. I also spoke Raymond in ortho regarding plan for surgery Monday. Patient continues to feel slightly improved but has continued pain in right heel. All Other Systems: Reviewed and Negative Medications Current Inpatient Medications Medications (Trade) Dose Ordered Sig/Andrei Route Start Time Stop Time Status Last Admin Dose Admin Acetaminophen (Tylenol Tab) 650 mg Q4H PRN PO 08/15/16 00:15 09/14/16 00:14 Polyethylene (Miralax Powder Packet) 17 gm DAILY PRN PO 08/15/16 00:15 09/14/16 00:14 08/18/16 09:03 17 GM Ondansetron HCl (Zofran Inj) 4 mg Q6H PRN IV 08/15/16 00:15 09/14/16 00:14 Insulin Aspart (novoLOG ASPART) SLIDING SCALE If C... ACHS SC 08/15/16 07:00 09/14/16 06:59 08/18/16 09:55 5 UNITS Glucose (Glucose 40% Gel) 15-30 GRAMS 15 GRAMS... UD PRN PO 08/15/16 00:15 09/14/16 00:14 Glucose (Glucose Chew Tab) 4-8 Tablets 4 Tabl... UD PRN PO 08/15/16 00:15 09/14/16 00:14 Dextrose (Dextrose 50% 50ML Syringe) 25-50ML OF 50% DW IV FOR... UD PRN IV 08/15/16 00:15 09/14/16 00:14 Glucagon (Glucagon Inj) 1 mg UD PRN SQ 08/15/16 00:15 09/14/16 00:14 Miscellaneous Information (Consult Glycemic Management Pharmacy) 1 ea DAILY PRN N/A 08/15/16 02:18 09/14/16 02:17 Acetazolamide (Diamox Tab) 250 mg BID PO 08/15/16 09:00 09/14/16 08:59 08/18/16 09:03 250 MG Aspirin (Ecotrin Tab) 81 mg DAILY PO 08/15/16 09:00 09/14/16 08:59 08/18/16 09:04 81 MG Calcium Acetate (Phoslo Cap) 667 mg AC PO 08/15/16 08:00 09/14/16 07:59 08/18/16 09:04 667 MG Carvedilol (Coreg Tab) 12.5 mg BID PO 08/15/16 09:00 09/14/16 08:59 08/18/16 09:06 12.5 MG Digoxin (Lanoxin Tab) 0.125 mg DAILY@1600 PO 08/15/16 16:00 09/14/16 15:59 08/17/16 17:50 0.125 MG Fish Oil ([place]-3 (Purified Fish Oil) Cap) 1 gm DAILY PO 08/15/16 09:00 09/14/16 08:59 08/18/16 09:04 1 GM Folic Acid (Folvite Tab) 1 mg DAILY PO 08/15/16 09:00 09/14/16 08:59 08/18/16 09:05 1 MG Furosemide (Lasix Tab) 80 mg DAILY PO 08/15/16 09:00 09/14/16 08:59 08/18/16 09:06 80 MG Multivitamins (Multivitamin Tab) 1 tab DAILY PO 08/15/16 09:00 09/14/16 08:59 08/18/16 09:05 1 TAB Ranolazine (Ranexa ER Tab) 500 mg BID PO 08/15/16 09:00 09/14/16 08:59 08/18/16 09:06 500 MG Cholecalciferol (Vitamin D Tab) 1,000 inter.unit QAM PO 08/15/16 09:00 09/14/16 08:59 08/18/16 09:05 1,000 INTER.UNIT Citalopram Hydrobromide (celeXA TAB) 20 mg QAM PO 08/15/16 09:00 09/14/16 08:59 08/18/16 09:04 20 MG Pantoprazole Sodium (Protonix Tab) 40 mg QAM PO 08/15/16 09:00 09/14/16 08:59 08/18/16 09:05 40 MG Morphine Sulfate (MoRPHine SULFATE INJ) 2 mg Q6H PRN IV 08/15/16 15:45 08/29/16 15:44 Tramadol HCl (Ultram Tab) 50 mg Q6H PRN PO 08/15/16 15:45 09/14/16 15:44 Miscellaneous Information 1 ea 1 ea UD PRN N/A 08/17/16 11:15 09/16/16 11:14 Cefazolin Sodium/ Dextrose (Ancef Iv/D5 50ml) 52.5 ml @ 105 mls/hr Q12 IV 08/17/16 21:00 09/28/16 20:59 08/18/16 09:15 105 MLS/HR Insulin Glargine (Lantus Solostar Pen) SEE PROTOCOL DAILY SC 08/18/16 09:00 09/17/16 08:59 08/18/16 09:56 30 UNIT Epoetin Ever (Procrit Inj) 10,000 units TODAY@0800 SQ 08/18/16 08:00 08/18/16 23:59 Objective Vital Signs Date Time Temp Pulse Resp B/P Pulse Ox O2 Delivery O2 Flow Rate FiO2 08/18/16 10:50 36.7 50 16 90/52 97 Room Air 08/18/16 06:46 36.5 75 19 93/53 100 Room Air 08/18/16 03:46 36.9 69 18 100/61 100 Room Air 08/17/16 23:50 Room Air 08/17/16 23:39 36.9 75 127/46 08/17/16 22:58 36.9 75 18 127/46 100 Room Air 08/17/16 19:49 37.2 83 17 116/69 97 Room Air 08/17/16 17:50 74 08/17/16 16:01 73 89/45 08/17/16 15:30 Room Air 08/17/16 15:19 36.9 68 16 94/55 99 Room Air Physical Exam General Appearance: WD/WN, no apparent distress Eyes: normal inspection, sclerae normal ENT: hearing grossly normal Neck: supple, trachea midline Respiratory/Chest: no respiratory distress, no accessory muscle use Cardiovascular: regular rate, rhythm Extremities: + pertinent finding (right heel with dressing in place. Waffle boots on) Neurologic/Psychiatric: alert Skin: warm/dry Laboratory Results RUN DATE: 08/17/16 [facility] PAGE 1 RUN TIME: 1113 Specimen Inquiry PATIENT: SAM JONES LOC: W U # : [id number] AGE/SX: 76/M ROOM: [facility] REG : 08/15/[address]: Marco A Moya MD : 1940 BED: 1 DIS : STATUS: ADM IN TLOC: SPEC #: [id number] MYRTLE: 08/15/16 STATUS: COMP REQ #: [id number] RECD: 08/15/[address]: Lauren Hernandez DO SOURCE: TISSUE ENTR: 08/15/16 [facility] DR: Shruthi Whitaker MD SPDC: Carl HSU Bradley A., D.O. Bell, Evan T MD Lavery, Doriann M.D. Patel, Pooja., S ORDERED: DEP WND CUL/SMR COMMENTS: Has Specimen Been Obtained/Collected? Y Procedure Result Verified Site GRAM STAIN Final 08/15/16-954 RESULT FEW WBCs SEEN MODERATE GRAM POSITIVE COCCI DEEP WOUND CULTURE Final 08/17/16-111 Organism 1 STAPHYLOCOCCUS AUREUS QUANITY MANY SENS SENSITIVITY TO FOLLOW 1. STAPHYLOCOCCUS AUREUS Target Route Dose RX AB Cost M.I.C. IQ ------ ----- ------ -- ------ -------- - ------ TRIMET/SULFA S <=0.5/ 9.5 * OXACILLIN S 0.5 VANCOMYCIN S 2 ERYTHROMYCIN S <=0.5 TETRACYCLINE S <=4 CLINDAMYCIN S <=0.5 DAPTOMYCIN S <=0.5 S = SENSITIVE I = INTERMEDIATE R = RESISTANT Item Value Date Time Blood Culture - Preliminary Resulted 08/16/16 1125 Blood NO GROWTH TO DATE. Blood Culture - Preliminary Resulted 08/16/16 1125 Blood NO GROWTH TO DATE. Gram Stain - Final Complete 08/15/16 021 Tissue Heel , Right Gram Stain - Final Complete 08/15/16 0215 Skin Heel , Right Last 24 Hours Test 08/17/16 17:11 08/17/16 20:51 08/18/16 05:59 08/18/16 06:52 Bedside Glucose 138 mg/dl 104 mg/dl 176 mg/dl White Blood Count 14.31 K/uL Red Blood Count 2.29 M/uL Hemoglobin 7.4 g/dL Hematocrit 23.6 % Mean Corpuscular Volume 103.1 fL Mean Corpuscular Hemoglobin 32.3 pg Mean Corpuscular Hemoglobin Concent 31.4 g/dl RDW Standard Deviation 58.4 fL RDW Coefficient of Variation 15.5 % Platelet Count 233 K/uL Mean Platelet Volume 9.5 fL Sodium Level 138 mmol/L Potassium Level 3.2 mmol/L Chloride Level 101 mmol/L Carbon Dioxide Level 25 mmol/L Anion Gap 12.0 mmol/L Blood Urea Nitrogen 43 mg/dl Creatinine 4.10 mg/dl Est Creatinine Clear Calc Drug Dose 17.0 ml/min Estimated GFR () 15.3 Estimated GFR (Non- 13.2 BUN/Creatinine Ratio 10.5 Random Glucose 149 mg/dl Calcium Level 7.7 mg/dl Test 08/18/16 09:35 08/18/16 11:29 Prothrombin Time 49.5 SECONDS Prothromb Time International Ratio 4.4 Bedside Glucose 208 mg/dl Assessment and Plan Patient with right distal Achilles tendon rupture, overlying wound, and calcaneal osteomyelitis. Currently the patient is on IV Ancef. Cultures growing MSSA. Anticipating orthopedic intervention Monday. Also ordered repeat CBC with AM labs. Patient ultimately will require prolonged abx therapy, likely 6 weeks. He will need a PICC line. We will follow. PROVIDER ADDENDUM: Patient reviewed with Ms. Ayala. Agree with above assessment.
[2016-08-18] MEDS ORDERED: PHYTONADIONE 5 MG TAB PO STA (13:39)
--- NOTE | 2016-08-18 15:06 | Progress Note ---
Progress Note Date of Service Aug 18, 2016. Progress Note The patient is a 76 year old who is scheduled for and I&D and debridement of his calcaneous tomorrow. He has multiple severe co-morbidities including PAD, chronic systolic CHF, A-Fib, ESRD, DM type 2. He is status post CABG X 5 approximately five years ago, AVR/MVR, Fem -Pop bypass and three stent placements to his right leg one week ago. He receives nightly peritoneal dialysis for his ESRD. Of concern for tomorrow is his severe anemia with a Hb of 7.4. The hospitalist has ordered two units to be transfused. His INR is currently 4.4. The hospitalist in his has stated they plan to get it below 1.8 for tomorrow. Also they will order a PRP after dialysis tonight. Because the patient is so sick and has not had an echocardiogram since 1999, I ordered another one for tomorrow. On exam the patient was alert, oriented and not in distress. His airway is a MP 3. His heart was RRR with a 3/6 systolic with no radiation to the carotids. His lungs are clear. Pending the correction of his anemia and his anticoagulation, I feel he should have his surgery tomorrow.
[2016-08-18] MEDS: DIGOXIN 0.125 MG TAB PO SCH ×2 (16:00→20:04)
[2016-08-18] MEDS ORDERED: PERFLUTREN LIPID MICROSPHERE (DEFINITY) IV ONE (16:34)
[2016-08-19] VITALS (11 sets, daily range): BP systolic 96–127; BP diastolic 57–63; PULSE 57–86; TEMP 36.4–37.2; O2SAT 96–100
[2016-08-19] MEDS ORDERED: NURSING VERBAL MED ORDER ONE (01:45)
[2016-08-19 02:30] LABS: HEPATITIS BE ANTIBODY TC 556 Nonreactive
[2016-08-19] MEDS: INSULIN ASPART 100 UNITS/ML 3 ML PEN SC SCH ×4 (05:55→23:29)
[2016-08-19 06:30] LABS: INR 1.6 (0.9-1.1); PROTHROMBIN TIME (PATIENT) 17.5 SECONDS (9.0-12.0)
--- NOTE | 2016-08-19 06:45 | Nephrology Progress Note ---
Nephrology Progress Note Date of Service: Aug 19, 2016. Subjective 76 yo male with peritoneal dialysis who has achilles tendon rupture as well as osteo of the calcaneous. on antibiotics. tentatively planned for OR today pending correction of his elevated inr and transfusion of blood. pt was transfused two units last night. inr improved to 1.6 this morning. Objective Date Time Temp Pulse Resp B/P Pulse Ox O2 Delivery O2 Flow Rate FiO2 08/19/16 03:06 36.7 72 18 127/61 98 Room Air 08/18/16 23:10 Room Air 08/18/16 23:04 37.0 73 18 121/55 99 Room Air 08/18/16 22:05 36.5 63 18 115/66 100 08/18/16 21:05 36.7 63 18 112/57 100 08/18/16 20:53 36.8 68 113/58 08/18/16 20:35 36.8 75 18 119/67 100 08/18/16 20:20 36.8 68 18 113/58 100 08/18/16 20:04 68 08/18/16 19:42 37.0 81 18 105/59 100 Room Air 08/18/16 19:30 37.0 81 18 105/59 100 08/18/16 18:30 37.0 70 18 127/65 100 08/18/16 17:58 37.0 62 18 106/57 99 08/18/16 17:30 36.6 62 18 102/49 99 08/18/16 17:15 36.7 57 18 101/50 100 08/18/16 16:56 36.6 64 18 110/68 08/18/16 16:55 36.6 64 18 110/68 100 08/18/16 15:02 36.6 59 18 95/51 98 Room Air 08/18/16 15:00 Room Air 08/18/16 10:50 36.7 50 16 90/52 97 Room Air 08/18/16 10:40 36.5 75 19 93/53 08/18/16 07:45 Room Air 08/18/16 06:46 36.5 75 19 93/53 100 Room Air Physical Exam: General-aaox3 Eyes-no scleral icterus ENT-mmm Neck-supple Lungs-clear Heart-2/6 systolic murmur, regular rate Abdomen-pd catheter in place, soft, nontender Extremities-right heel ulcer-wrapped Neuro-nonfocal Current Inpatient Medications Medications (Trade) Dose Ordered Sig/Andrei Route Start Time Stop Time Status Last Admin Dose Admin Acetaminophen (Tylenol Tab) 650 mg Q4H PRN PO 08/15/16 00:15 09/14/16 00:14 Polyethylene (Miralax Powder Packet) 17 gm DAILY PRN PO 08/15/16 00:15 09/14/16 00:14 08/18/16 09:03 17 GM Ondansetron HCl (Zofran Inj) 4 mg Q6H PRN IV 08/15/16 00:15 09/14/16 00:14 Glucose (Glucose 40% Gel) 15-30 GRAMS 15 GRAMS... UD PRN PO 08/15/16 00:15 09/14/16 00:14 Glucose (Glucose Chew Tab) 4-8 Tablets 4 Tabl... UD PRN PO 08/15/16 00:15 09/14/16 00:14 Dextrose (Dextrose 50% 50ML Syringe) 25-50ML OF 50% DW IV FOR... UD PRN IV 08/15/16 00:15 09/14/16 00:14 Glucagon (Glucagon Inj) 1 mg UD PRN SQ 08/15/16 00:15 09/14/16 00:14 Miscellaneous Information (Consult Glycemic Management Pharmacy) 1 ea DAILY PRN N/A 08/15/16 02:18 09/14/16 02:17 Acetazolamide (Diamox Tab) 250 mg BID PO 08/15/16 09:00 09/14/16 08:59 08/18/16 21:59 250 MG Aspirin (Ecotrin Tab) 81 mg DAILY PO 08/15/16 09:00 09/14/16 08:59 08/18/16 09:04 81 MG Calcium Acetate (Phoslo Cap) 667 mg AC PO 08/15/16 08:00 09/14/16 07:59 08/18/16 17:12 667 MG Carvedilol (Coreg Tab) 12.5 mg BID PO 08/15/16 09:00 09/14/16 08:59 08/18/16 21:56 12.5 MG Digoxin (Lanoxin Tab) 0.125 mg DAILY@1600 PO 08/15/16 16:00 09/14/16 15:59 08/18/16 20:04 0.125 MG Fish Oil ([place]-3 (Purified Fish Oil) Cap) 1 gm DAILY PO 08/15/16 09:00 09/14/16 08:59 08/18/16 09:04 1 GM Folic Acid (Folvite Tab) 1 mg DAILY PO 08/15/16 09:00 09/14/16 08:59 08/18/16 09:05 1 MG Furosemide (Lasix Tab) 80 mg DAILY PO 08/15/16 09:00 09/14/16 08:59 08/18/16 09:06 80 MG Multivitamins (Multivitamin Tab) 1 tab DAILY PO 08/15/16 09:00 09/14/16 08:59 08/18/16 09:05 1 TAB Ranolazine (Ranexa ER Tab) 500 mg BID PO 08/15/16 09:00 09/14/16 08:59 08/18/16 21:58 500 MG Cholecalciferol (Vitamin D Tab) 1,000 inter.unit QAM PO 08/15/16 09:00 09/14/16 08:59 08/18/16 09:05 1,000 INTER.UNIT Citalopram Hydrobromide (celeXA TAB) 20 mg QAM PO 08/15/16 09:00 09/14/16 08:59 08/18/16 09:04 20 MG Pantoprazole Sodium (Protonix Tab) 40 mg QAM PO 08/15/16 09:00 09/14/16 08:59 08/18/16 09:05 40 MG Morphine Sulfate (MoRPHine SULFATE INJ) 2 mg Q6H PRN IV 08/15/16 15:45 08/29/16 15:44 Tramadol HCl (Ultram Tab) 50 mg Q6H PRN PO 08/15/16 15:45 09/14/16 15:44 Miscellaneous Information 1 ea 1 ea UD PRN N/A 08/17/16 11:15 09/16/16 11:14 Cefazolin Sodium/ Dextrose (Ancef Iv/D5 50ml) 52.5 ml @ 105 mls/hr Q12 IV 08/17/16 21:00 09/28/16 20:59 08/18/16 23:49 105 MLS/HR Insulin Glargine (Lantus Solostar Pen) SEE PROTOCOL DAILY [place] 08/18/16 09:00 09/17/16 08:59 08/18/16 09:56 30 UNIT Insulin Aspart (novoLOG ASPART) SLIDING SCALE If C... Q6 KS 08/19/16 06:00 09/18/16 05:59 08/19/16 05:55 2 UNITS Last 24 Hours Test 08/18/16 06:52 08/18/16 09:35 08/18/16 11:29 08/18/16 17:23 Bedside Glucose 176 mg/dl 208 mg/dl 117 mg/dl Prothrombin Time 49.5 SECONDS Prothromb Time International Ratio 4.4 Test 08/18/16 21:05 08/19/16 05:51 08/19/16 05:56 Bedside Glucose 141 mg/dl 186 mg/dl Prothrombin Time 17.5 SECONDS Prothromb Time International Ratio 1.6 Assessment & Plan ESRD-on greens and yellows. volume status appropriate. will continue current prescription. depending on iv fluids, may need a night of all greens. however for now, will continue one green and one yellow. removing about 1.5 liters a night. Anemia of renal failure- hg levels trended down to 7.6, on procrit and did get transfused last night two units in preparation for surgery. hg level pending for this am. VERO: on phoslo and will follow phos levels intermittently. phos levels pending for this am.
[2016-08-19 06:51] LABS: BUN/CREATININE RATIO 9.6 (10-20); CALCIUM 7.8 mg/dl (8.5-10.1); CREATININE 4.3 mg/dl (0.60-1.40)
[2016-08-19 07:13] LABS: HEMATOCRIT 28.5 % (42-52); MEAN CELL VOLUME 98.6 fL (80-100); MEAN CORPUSCULAR HEMOGLOBIN 31.8 pg (25-34); MEAN CORPUSCULAR HGB CONC 32.3 g/dl (32-36); MEAN PLATELET VOLUME 9.8 fL (7.4-10.4); PLATELET COUNT 230 K/uL (130-400); RED BLOOD COUNT 2.89 M/uL (4.7-6.1); WHITE BLOOD COUNT 12.56 K/uL (4.8-10.8)
[2016-08-19] MEDS ORDERED: POTASSIUM CHLORIDE 20 MEQ TABCR PO ONE (07:45)
[2016-08-19] MEDS: CALCIUM ACETATE 667MG GELCAP PO SCH ×3 (08:00→18:59)
[2016-08-19] MEDS ORDERED: INSULIN GLARGINE SOLOSTAR 100 UNITS/ML 3 ML PEN SC SCH (08:00)
[2016-08-19] MEDS: AcetaZOLAMIDE 250 MG TAB PO SCH ×2 (08:47→22:03)
[2016-08-19] MEDS: CITALOPRAM 20 MG TAB PO SCH (08:47)
[2016-08-19] MEDS: CARVEDILOL 12.5 MG TAB PO SCH ×2 (08:47→22:02)
[2016-08-19] MEDS: MULTIVITAMIN TAB PO SCH (08:48)
[2016-08-19] MEDS: RANOLAZINE 500 MG ER TAB PO SCH ×2 (08:48→22:03)
[2016-08-19] MEDS: PANTOprazole SOD 40 MG TAB PO SCH (08:48)
[2016-08-19] MEDS: OMEGA-3 (PURIFIED FISH OIL) 1 GM CAP PO SCH (08:48)
[2016-08-19] MEDS: CHOLECALCIFEROL 1000 INTER.UNIT TAB PO SCH (08:48)
[2016-08-19] MEDS: FUROSEMIDE 40 MG TAB PO SCH (08:48)
[2016-08-19] MEDS: CEFAZOLIN IV 500 MG in DEXTROSE 5% 50ML 50 ML IV SCH ×2 (09:10→22:08)
--- NOTE | 2016-08-19 10:01 | Pharmacy Progress Note ---
Glycemic Control: Progress Nt Date of Service Aug 19, 2016. Scope Glycemic Pharmacist consulted by Dr Hernandez on 08/15/16 for glycemic control and to write orders per [facility] inpatient glycemic control protocol. Objective Accuchecks BSG (last 24hrs): Test 08/18/16 11:29 08/18/16 17:23 08/18/16 21:05 08/19/16 05:51 Bedside Glucose 208 mg/dl (70-99) 117 mg/dl (70-99) 141 mg/dl (70-99) 186 mg/dl (70-99) Test 08/19/16 05:56 Random Glucose 179 mg/dl (70-99) Laboratory Data (last 24hrs) Test 08/19/16 05:56 Anion Gap 13.0 mmol/L BUN/Creatinine Ratio 9.6 Blood Urea Nitrogen 41 mg/dl Creatinine 4.30 mg/dl Potassium Level 3.0 mmol/L Sodium Level 140 mmol/L White Blood Count 12.56 K/uL HbA1c: Test 08/15/16 05:50 Hemoglobin A1c 6.4 % (4.5-5.6) H Recent Pertinent Medications Outpatient Anti-diabetic Regimen: * Lantus 70 units SQ q 24 hours * Humalog sliding scale * CF: 40mg/dL/unit * Goal range 110-140mg/dL * A1c = 6.4 % 07/2016 The patient is currently receiving: * Basal insulin: Lantus 30 units SQ daily * Correctional Insulin: NovoLog Correction per scale AC/HS Goal Range: Low 110 mg/dL - High 140 mg/dL Correction Factor: 30 mg/dL/unit * Prandial insulin: Per carb ratio of 1 unit per 10 grams CHO consumed Risk Factors for Insulin Resistance: * Infection: cefazolin q12 hours for osteo/chronic wound heel * Diet: T2DM/renal --> NPO at midnight for OR today * Surgery: POD#0 - I&D and debridement of calcaneus Assessment & Plan ASSESSMENT: * ADA & AACE recommend a goal blood sugar range 140-180 mg/dl for the majority of critically ill & non-critically ill patients. However, more stringent targets may be selected in individual cases. 08/15/16 * 76 y/o type 2 diabetic who uses quite large doses of Lantus and sliding scale NovoLog as an outpatient. * It is recorded that Mr. Grant took 50 units on 08/14 (the day prior to admission) * BSGs have since been below goal range * Concerning for hypoglycemia as an outpatient based on both this and A1c of 6.4 % * Patient has ESRD and receives peripheral dialysis - this may alter the A1c and make it less reliable * Currently, basal inulin is on hold to avoid acute hypoglycemia * NovoLog continues, however will remove prandial coverage until BSGs are euglycemic 08/16/16 * BSGs have began to rebound from large Lantus dose on 08/14 and we are ready to re-initiate basal insulin (at a reduced dose) * Lantus 10 units SQ BID - may increase to 15 units BID if BSGs continue to be elevated (weight-based dosing) * NovoLog now requiring prandial coverage as BSGs begin to rise * add carb ratio * Peritoneal dialysis today - may contribute to varying degrees of insulin sensitivity 08/17/16 * BSGs no longer below goal range and are starting to trend upwards (likely large home dose of Lantus is wearing off) * start to titrate Lantus toward home regimen (but slightly reduced since hypoglycemia occurred with 50 units) * Historically, the patient tolerated NovoLog with a CF 30mg/dL/unit and a CR 1: 10 * begin these NovoLog parameters at this time for tighter BSG control 08/18/16 * BSGs improved with increase in basal dose and tightened NovoLog parameters * continue same at this time * Possible OR tomorrow * may require a reduced dose in Lantus AM of OR - continue to follow and decide tomorrow AM based on fasting BSG 08/19/16 * BSGs decently controlled over the past 24 hours with 45 units of insulin administered * Fasting BSG above goal range this morning, however a reduced dose of Lantus will be ordered as the patient is NPO for OR today * resume full dose Lantus tomorrow * may need a supplemental dose of Lantus post OR today if hyperglycemic PLAN FOR INPATIENT GLYCEMIC CONTROL: * Begin Lantus 30 units SQ q AM (15 units SQx1 today 07/21 NPO) * dose reduced if BSG below 120mg/dL * dose increased if BSG is above 180mg/dL * NovoLog AC and HS * Correction factor: 30mg/dL/unit * Carb ratio: 1 unit per 10 g of CHO consumed * Goal range: 110-140mg/dL RECOMMENDATIONS FOR DISCHARGE: * may benefit from smaller basal insulin dose (50-70 units causes near hypoglycemia) * difficult to assess secondary to ESRD and possible inaccuracy of A1c * Please note that the plan above was derived based on current level of insulin resistance and hospital stress. These recommendations are appropriate for inpatient admission only. Plan of care upon discharge will need to be reassessed to avoid potential outpatient hypo/hyperglycemia. Thank you.
[2016-08-19] MEDS ORDERED: FENTANYL CITRATE INJ 50 MCG/1 ML 2 ML VIAL ONE (11:29)
--- NOTE | 2016-08-19 11:50 | History & Physical Bridge Note ---
H&P Re-Evaluation Bridge Note: I have examined the patient, reviewed the History & Physical and in the interval since the performance of the History & Physical I have noted the following changes of clinical significance: No changes noted
[2016-08-19] MEDS ORDERED: BACITRACIN 50000 UNIT VIAL ONE ×2 (12:04→12:09)
[2016-08-19] MEDS ORDERED: BUPIVACAINE 0.5 % 5 MG/1 ML MPF 30ML VIAL ONE (12:04)
--- NOTE | 2016-08-19 12:26 | ECHOCARDIOGRAM REPORT ---
*NOTICE TO RECEIVING DEMOCRAT AGENCY This information is strictly Confidential and protected under [place] law. [place] law prohibits you from making any further disclosure of this information unless further disclosure is expressly permitted by the written consent of the person to whom it pertains or is authorized by law. A general authorization for the release of medical or other information is not sufficient for this purpose. Hospital accepts no responsibility if the information is made available to any other person, INCLUDING THE PATIENT. Interpretation Summary * Name: SAM JONES Study Date: 08/18/2016 05:09 PM BP: 95/51 mmHg * Patient Location: .FX ARTIST\S\W351\S\1 HR: 59 * : 1940 (M/d/yyy) Gender: Male Height: 69 in * Age: 76 yrs Ethnicity: CA Weight: 198 lb * Ordering Physician: Krutis Wu * Performed By: Serenity Pinon * * Reason For Study: CHF, CABG, AVR/ MVR, A-FIB, PRE-OP * BSA: 2.1 m2 * History: MVR, AVR, CABG X5 * The study was technically limited. * Clinical correlation is recommended. * Would consider a transesophageal echocardiogram if clinically indicated. * -- Conclusions -- * Ejection Fraction = 45-50%. * There is moderate concentric left ventricular hypertrophy. * There is a moderate sized inferior and posterior wall motion abnormality with severe hypokinesis to akinesis of the base and mid segments. * There is a bioprosthetic aortic valve. * The gradient is normal for this prosthetic aortic valve. * There is a bioprosthetic mitral valve. * There is a possible small mobile echodensity attached to the bioprosthetic mitral valve leaflet. Bioprosthetic MV vegetation cannot be excluded. * Gradients are abnormal for this prosthetic mitral valve suggesting mild stenosis. 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 Procedure Details * A complete two-dimensional transthoracic echocardiogram was performed (2D, M-mode, Doppler and color flow Doppler). * A contrast injection of Definity was performed to improve assessment of LV function. * Contrast was injected into an intravenous site in the left arm. * One vial of Definity ultrasound contrast was diluted in normal saline to a total volume of 10 ml. A total of '2' ml of solution was administered during imaging. * Lot # [id number] of Definity utilized for procedure. * Expiration date 08/06. * The attending nurse who injected the contrast agent was TONE VIRGEN RN. Left Ventricle * The left ventricle is normal in size. * There is no thrombus. * There is moderate concentric left ventricular hypertrophy. * Ejection Fraction = 45-50%. * There is a moderate sized inferior and posterior wall motion abnormality with severe hypokinesis to akinesis of the base and mid segments. Right Ventricle * The right ventricular cavity size is normal (basal dimension <4.2 cm in right ventricular apical 4-chamber view). * The right ventricular systolic function is normal as assessed by tricuspid annular plane systolic excursion (TAPSE) (normal >1.5 cm). Atria * The left atrium is severely dilated. * The right atrium is moderately dilated. Mitral Valve * There is a possible small mobile echodensity attached to the bioprosthetic mitral valve leaflet. Bioprosthetic MV vegetation cannot be excluded. * There is a bioprosthetic mitral valve. * Gradients are abnormal for this prosthetic mitral valve suggesting mild stenosis. 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 Tricuspid Valve * The tricuspid valve anatomy is normal. * There is no tricuspid stenosis. * There is mild tricuspid regurgitation. * Doppler findings do not suggest pulmonary hypertension. Aortic Valve * There is a bioprosthetic aortic valve. * The gradient is normal for this prosthetic aortic valve. * No significant bioprosthetic aortic valve regurgitation. Pulmonic Valve * The pulmonary valve is not well seen, but the Doppler examination is normal without significant regurgitation or stenosis. Great Vessels * The aortic root is normal size. Pericardium/Pleural * There is no pericardial effusion. Great Vessels * Dilated inferior vena cava with reduced collapsability with sniff indicates an elevated right atrial pressure of 15 mmHg Left Ventricular Diastolic Function * Pulse wave TDI of the anterior and posterior mitral annulas demonstrates abnormal LV relaxation MMode 2D Measurements and Calculations IVSd 1.3 cm IVSs 1.8 cm LVIDd 5.4 cm LVIDs 4.1 cm LVPWd 1.4 cm LVPWs 2.2 cm IVS/LVPW 0.94 FS 23.8 % EDV(Teich) 143.3 ml ESV(Teich) 75.9 ml EF(Teich) 47.1 % EDV(cubed) 160.4 ml ESV(cubed) 70.9 ml EF(cubed) 55.8 % % IVS thick 37.9 % % LVPW thick 57.2 % LV mass(C)d 323.4 grams LV mass(C)dI 157.3 grams/m\S\2 LV mass(C)s 401.6 grams LV mass(C)sI 195.3 grams/m\S\2 SV(Teich) 67.4 ml SI(Teich) 32.8 ml/m\S\2 SV(cubed) 89.5 ml SI(cubed) 43.5 ml/m\S\2 LA dimension 5.4 cm asc Aorta Diam 3.6 cm LVOT diam 1.7 cm LVOT area 2.4 cm\S\2 LVAd ap4 47.2 cm\S\2 LVLd ap4 10.1 cm EDV(MOD-sp4) 175.9 ml EDV(sp4-el) 187.9 ml LVAs ap4 30.1 cm\S\2 LVLs ap4 7.9 cm ESV(MOD-sp4) 90.8 ml ESV(sp4-el) 97.4 ml EF(MOD-sp4) 48.4 % EF(sp4-el) 48.2 % LVAd ap2 43.1 cm\S\2 LVLd ap2 9.5 cm EDV(MOD-sp2) 158.5 ml EDV(sp2-el) 165.5 ml LVAs ap2 28.1 cm\S\2 LVLs ap2 8.0 cm ESV(MOD-sp2) 79.7 ml ESV(sp2-el) 84.0 ml EF(MOD-sp2) 49.7 % EF(sp2-el) 49.3 % LVLd %diff -5.90 % EDV(MOD-bp) 174.0 ml LVLs %diff 1.3 % ESV(MOD-bp) 85.7 ml EF(MOD-bp) 50.7 % SV(MOD-sp4) 85.1 ml SI(MOD-sp4) 41.4 ml/m\S\2 SV(MOD-sp2) 78.8 ml SI(MOD-sp2) 38.3 ml/m\S\2 SV(MOD-bp) 88.3 ml SI(MOD-bp) 42.9 ml/m\S\2 SV(sp4-el) 90.5 ml SI(sp4-el) 44.0 ml/m\S\2 SV(sp2-el) 81.5 ml SI(sp2-el) 39.7 ml/m\S\2 Doppler Measurements and Calculations MV E max augustine 208.5 cm/sec MV V2 max 226.0 cm/sec MV max PG 20.4 mmHg MV V2 mean 88.4 cm/sec MV mean PG 4.9 mmHg MV V2 VTI 63.8 cm MVA(VTI) 0.97 cm\S\2 MV dec time 0.38 sec Ao V2 max 257.5 cm/sec Ao max PG 26.5 mmHg Ao max PG (full) 20.7 mmHg Ao V2 mean 194.4 cm/sec Ao mean PG 16.9 mmHg Ao mean PG (full) 13.8 mmHg Ao V2 VTI 53.1 cm CAMMY(I,A) 1.2 cm\S\2 CAMMY(I,D) 1.2 cm\S\2 CAMMY(V,A) 1.1 cm\S\2 CAMMY(V,D) 1.1 cm\S\2 LV V1 max PG 5.8 mmHg LV V1 mean PG 3.1 mmHg LV V1 max 120.6 cm/sec LV V1 mean 83.1 cm/sec LV V1 VTI 26.2 cm SV(LVOT) 62.1 ml SI(LVOT) 30.2 ml/m\S\2 PA V2 max 87.9 cm/sec PA max PG 3.1 mmHg TR max augustine 220.0 cm/sec
[2016-08-19] MEDS ORDERED: GENTAMICIN SULFATE 40 MG/ML 2 ML VIAL ONE (12:48)
[2016-08-19] MEDS ORDERED: VANCOMYCIN HCL 1000MG/20ML VIAL ONE (12:49)
--- NOTE | 2016-08-19 12:57 | Infectious Disease Progress Nt ---
Progress Note Date of Service Aug 19, 2016. Subjective Pt evaluation today including: conversation w/ patient, conversation w/ family , physical exam, chart review, lab review, review of studies, conversation w/ customer care voice consultant (Demarco oliveira), review of inpatient medication list White blood cell count today is 12.56, and hemoglobin is improved to 9.2. His creatinine is 4.3. His INR is down to 1.6 today. His blood cultures continue to show no growth. Patient continues to tolerate IV Ancef well. His family has multiple questions today. The patient states that he is having no fever, sweats, chills, nausea, vomiting, diarrhea, or other associated symptoms. All Other Systems: Reviewed and Negative Medications Current Inpatient Medications Medications (Trade) Dose Ordered Sig/Andrei Route Start Time Stop Time Status Last Admin Dose Admin Acetaminophen (Tylenol Tab) 650 mg Q4H PRN PO 08/15/16 00:15 09/14/16 00:14 Polyethylene (Miralax Powder Packet) 17 gm DAILY PRN PO 08/15/16 00:15 09/14/16 00:14 08/18/16 09:03 17 GM Ondansetron HCl (Zofran Inj) 4 mg Q6H PRN IV 08/15/16 00:15 09/14/16 00:14 Glucose (Glucose 40% Gel) 15-30 GRAMS 15 GRAMS... UD PRN PO 08/15/16 00:15 09/14/16 00:14 Glucose (Glucose Chew Tab) 4-8 Tablets 4 Tabl... UD PRN PO 08/15/16 00:15 09/14/16 00:14 Dextrose (Dextrose 50% 50ML Syringe) 25-50ML OF 50% DW IV FOR... UD PRN IV 08/15/16 00:15 09/14/16 00:14 Glucagon (Glucagon Inj) 1 mg UD PRN SQ 08/15/16 00:15 09/14/16 00:14 Miscellaneous Information (Consult Glycemic Management Pharmacy) 1 ea DAILY PRN N/A 08/15/16 02:18 09/14/16 02:17 Acetazolamide (Diamox Tab) 250 mg BID PO 08/15/16 09:00 09/14/16 08:59 08/18/16 21:59 250 MG Calcium Acetate (Phoslo Cap) 667 mg AC PO 08/15/16 08:00 09/14/16 07:59 08/18/16 17:12 667 MG Carvedilol (Coreg Tab) 12.5 mg BID PO 08/15/16 09:00 09/14/16 08:59 08/18/16 21:56 12.5 MG Digoxin (Lanoxin Tab) 0.125 mg DAILY@1600 PO 08/15/16 16:00 09/14/16 15:59 08/18/16 20:04 0.125 MG Fish Oil ([place]-3 (Purified Fish Oil) Cap) 1 gm DAILY PO 08/15/16 09:00 09/14/16 08:59 08/18/16 09:04 1 GM Folic Acid (Folvite Tab) 1 mg DAILY PO 08/15/16 09:00 09/14/16 08:59 08/18/16 09:05 1 MG Furosemide (Lasix Tab) 80 mg DAILY PO 08/15/16 09:00 09/14/16 08:59 08/18/16 09:06 80 MG Multivitamins (Multivitamin Tab) 1 tab DAILY PO 08/15/16 09:00 09/14/16 08:59 08/18/16 09:05 1 TAB Ranolazine (Ranexa ER Tab) 500 mg BID PO 08/15/16 09:00 09/14/16 08:59 08/18/16 21:58 500 MG Cholecalciferol (Vitamin D Tab) 1,000 inter.unit QAM PO 08/15/16 09:00 09/14/16 08:59 08/18/16 09:05 1,000 INTER.UNIT Citalopram Hydrobromide (celeXA TAB) 20 mg QAM PO 08/15/16 09:00 09/14/16 08:59 08/18/16 09:04 20 MG Pantoprazole Sodium (Protonix Tab) 40 mg QAM PO 08/15/16 09:00 09/14/16 08:59 08/18/16 09:05 40 MG Morphine Sulfate (MoRPHine SULFATE INJ) 2 mg Q6H PRN IV 08/15/16 15:45 08/29/16 15:44 Tramadol HCl (Ultram Tab) 50 mg Q6H PRN PO 08/15/16 15:45 09/14/16 15:44 Miscellaneous Information 1 ea 1 ea UD PRN N/A 08/17/16 11:15 09/16/16 11:14 Cefazolin Sodium/ Dextrose (Ancef Iv/D5 50ml) 52.5 ml @ 105 mls/hr Q12 IV 08/17/16 21:00 09/28/16 20:59 08/19/16 09:10 105 MLS/HR Insulin Glargine (Lantus Solostar Pen) SEE PROTOCOL DAILY SC 08/18/16 09:00 09/17/16 08:59 Future hold 08/18/16 09:56 30 UNIT Insulin Aspart (novoLOG ASPART) SLIDING SCALE If C... Q6 SC 08/19/16 06:00 09/18/16 05:59 08/19/16 05:55 2 UNITS Objective Vital Signs Date Time Temp Pulse Resp B/P Pulse Ox O2 Delivery O2 Flow Rate FiO2 08/19/16 08:30 36.9 86 16 112/62 08/19/16 07:58 36.9 86 16 112/62 96 Room Air 08/19/16 07:30 Room Air 08/19/16 03:06 36.7 72 18 127/61 98 Room Air 08/18/16 23:10 Room Air 08/18/16 23:04 37.0 73 18 121/55 99 Room Air 08/18/16 22:05 36.5 63 18 115/66 100 08/18/16 21:05 36.7 63 18 112/57 100 08/18/16 20:53 36.8 68 113/58 08/18/16 20:35 36.8 75 18 119/67 100 08/18/16 20:20 36.8 68 18 113/58 100 08/18/16 20:04 68 08/18/16 19:42 37.0 81 18 105/59 100 Room Air 08/18/16 19:30 37.0 81 18 105/59 100 08/18/16 18:30 37.0 70 18 127/65 100 08/18/16 17:58 37.0 62 18 106/57 99 08/18/16 17:30 36.6 62 18 102/49 99 08/18/16 17:15 36.7 57 18 101/50 100 08/18/16 16:56 36.6 64 18 110/68 08/18/16 16:55 36.6 64 18 110/68 100 08/18/16 15:02 36.6 59 18 95/51 98 Room Air 08/18/16 15:00 Room Air Physical Exam General Appearance: WD/WN, no apparent distress Eyes: normal inspection, sclerae normal ENT: hearing grossly normal Neck: supple, trachea midline Respiratory/Chest: chest non-tender, normal breath sounds, no respiratory distress, no accessory muscle use Cardiovascular: + systolic murmur, + irregularly irregular Abdomen: normal bowel sounds, non tender, soft Extremities: + pertinent finding (Waffle boots in place. SCDs in place.) Neurologic/Psychiatric: alert, normal mood/affect Skin: normal color, warm/dry, no rash Laboratory Results RUN DATE: 08/17/16 [facility] LAB PAGE 1 RUN TIME: 1113 Specimen Inquiry PATIENT: SAM JONES LOC: [facility] U # : [id number] AGE/SX: 76/M ROOM: [facility] REG : 08/15/[address]: Marco A Moya MD : 1940 BED: 1 DIS : STATUS: ADM IN TLOC: SPEC #: [id number] MYRTLE: 08/15/16 STATUS: MICKIE REQ #: [id number] RECD: 08/15/16 [facility] DR: Lauren Hernandez DO SOURCE: TISSUE ENTR: 08/15/[address] [facility] [address]: Shruthi Whitaker MD SPDESC: Carl HSU Bradley A., D.O. Bell, Evan T MD Lavery, Doriann M.D. Patel, Pooja., S ORDERED: CINTHYA HOUSE CUL/YRIS COMMENTS: Has Specimen Been Obtained/Collected? Y Procedure Result Verified Site GRAM STAIN Final 08/15/16 RESULT FEW WBCs SEEN MODERATE GRAM POSITIVE COCCI DEEP WOUND CULTURE Final 08/17/16 Organism 1 STAPHYLOCOCCUS AUREUS QUANITY MANY SENS SENSITIVITY TO FOLLOW 1. STAPHYLOCOCCUS AUREUS Target Route Dose RX AB Cost M.I.C. IQ ------ ----- ------ -- ------ -------- - ------ TRIMET/SULFA S <=0.5/ 9.5 * OXACILLIN S 0.5 VANCOMYCIN S 2 ERYTHROMYCIN S <=0.5 TETRACYCLINE S <=4 CLINDAMYCIN S <=0.5 DAPTOMYCIN S <=0.5 S = SENSITIVE I = INTERMEDIATE R = RESISTANT Item Value Date Time Blood Culture - Preliminary Resulted 08/16/16 1125 Blood NO GROWTH TO DATE. Blood Culture - Preliminary Resulted 08/16/16 1125 Blood NO GROWTH TO DATE. Last 24 Hours Test 08/18/16 17:23 08/18/16 21:05 08/19/16 05:51 08/19/16 05:56 Bedside Glucose 117 mg/dl 141 mg/dl 186 mg/dl White Blood Count 12.56 K/uL Red Blood Count 2.89 M/uL Hemoglobin 9.2 g/dL Hematocrit 28.5 % Mean Corpuscular Volume 98.6 fL Mean Corpuscular Hemoglobin 31.8 pg Mean Corpuscular Hemoglobin Concent 32.3 g/dl RDW Standard Deviation 65.5 fL RDW Coefficient of Variation 18.2 % Platelet Count 230 K/uL Mean Platelet Volume 9.8 fL Prothrombin Time 17.5 SECONDS Prothromb Time International Ratio 1.6 Sodium Level 140 mmol/L Potassium Level 3.0 mmol/L Chloride Level 102 mmol/L Carbon Dioxide Level 25 mmol/L Anion Gap 13.0 mmol/L Blood Urea Nitrogen 41 mg/dl Creatinine 4.30 mg/dl Est Creatinine Clear Calc Drug Dose 16.2 ml/min Estimated GFR () 14.5 Estimated GFR (Non- 12.5 BUN/Creatinine Ratio 9.6 Random Glucose 179 mg/dl Calcium Level 7.8 mg/dl Phosphorus Level 3.0 mg/dl Test 08/19/16 12:01 Bedside Glucose 130 mg/dl Assessment and Plan Patient with right distal Achilles tendon rupture, overlying wound, and calcaneal osteomyelitis. Currently the patient is on IV Ancef. Cultures growing MSSA. Patient anticipating orthopedic intervention this afternoon. Patient ultimately will require prolonged abx therapy, likely 6 weeks. He will need a PICC line. If patient is discharged home, will likely change to IV ceftriaxone 2 grams daily for ease of use, but if patient goes to rehab, could continue IV Ancef. We will continue to follow. PROVIDER ADDENDUM: Patient reviewed with Ms. Ayala. Agree with above assessment.
[2016-08-19] MEDS ORDERED: LIDOCAINE HCL 2% 2 ML VIAL (20MG/ML) ONE (13:43)
[2016-08-19] MEDS ORDERED: ROCURONIUM BROMIDE 10 MG/ML 5 ML VIAL ONE (13:43)
[2016-08-19] MEDS ORDERED: ONDANSETRON INJ 2 MG/ML 2 ML VIAL ONE (13:43)
[2016-08-19] MEDS ORDERED: GLYCOPYRROLATE INJ 0.2 MG/ML VIAL ONE (13:43)
[2016-08-19] MEDS ORDERED: PROPOFOL IV EMULSION 10 MG/ML 20 ML VIAL IV ONE (13:43)
[2016-08-19] MEDS ORDERED: PHENYLEPHRINE 100MCG/ML 5ML SYR ONE (13:43)
[2016-08-19] MEDS ORDERED: NEOSTIGMINE METHYLSULFATE 5 MG/5 ML SYR ONE (13:43)
[2016-08-19] MEDS ORDERED: EpHEDrine SULFATE 50MG/5ML SYR ONE (13:43)
--- NOTE | 2016-08-19 14:52 | [facility] Post Operative Brief Note ---
Immediate Operative Summary Operative Date Aug 19, 2016. Pre-Operative Diagnosis Right large posterior heel necrotic Diabetic foot ulcer; mcalcaneal osteomyelitis; Achilles tendon rupture; Avulsion fracture posterior calcaneus Post-Operative Diagnosis Right large posterior heel necrotic Diabetic foot ulcer; mcalcaneal osteomyelitis; Achilles tendon rupture; Avulsion fracture posterior calcaneus Procedure(s) Performed Irrigation and debridment right posterior heel necrotic diabetic wound, debridement right posterior necrotic calcaneal bone, debridement Achilles tendon, Excision avulsion fracture posterior calcaneus, debridement skin and fascia posterior heel, implantation antibiotic laden stimulan beads Surgeon Dr Blandon Stitcher Operator Surgeon(s) Severo Crespo PA-C Estimated Blood Loss 15cc Findings See dict Specimens Specimens: 1. Right heel ulcer 2. Right heel calcaneus bone Drains HV x 1 Anesthesia GETT Complication(s) None Disposition Recovery Room / PACU
[2016-08-19] MEDS ORDERED: ATROPINE SULFATE 0.1 MG/ML 5ML SYR IV PRN (15:00)
[2016-08-19] MEDS ORDERED: FENTANYL CITRATE INJ 50 MCG/1 ML 2 ML VIAL IV PRN (15:00)
[2016-08-19] MEDS ORDERED: ONDANSETRON INJ 2 MG/ML 2 ML VIAL IV PRN (15:00)
[2016-08-19] MEDS ORDERED: EpHEDrine SULFATE INJ 50 MG/ML AMP IV PRN (15:00)
--- NOTE | 2016-08-19 17:09 | Anesthesiology Progress Note ---
Anesthesia Post Op Note Date & Time Aug 19, 2016 at 17:09 Vital Signs Pain Intensity: 0.0 Vital Signs Past 12 Hours Date Time Temp Pulse Resp B/P Pulse Ox O2 Delivery O2 Flow Rate FiO2 08/19/16 16:45 96 Nasal Cannula 2.0 08/19/16 16:45 Nasal Cannula 2.0 08/19/16 16:25 43 16 101/44 100 Nasal Cannula 2 08/19/16 16:15 37.0 43 16 100/43 100 Nasal Cannula 2 08/19/16 16:05 59 24 101/44 98 Nasal Cannula 2 08/19/16 15:55 45 14 97/41 100 Nasal Cannula 2 08/19/16 15:45 37.2 43 16 97/40 100 Nasal Cannula 2 08/19/16 15:35 43 16 104/41 100 Nasal Cannula 2 08/19/16 15:30 45 12 92/46 100 Nasal Cannula 2 08/19/16 15:20 36.1 49 18 101/42 100 Nasal Cannula 2 08/19/16 15:10 52 16 104/45 100 Nasal Cannula 2 08/19/16 15:00 62 16 109/46 100 Mask 10 08/19/16 14:50 59 18 105/50 100 Mask 10 08/19/16 14:44 36.3 78 16 114/63 100 Mask 10 08/19/16 08:30 36.9 86 16 112/62 08/19/16 07:58 36.9 86 16 112/62 96 Room Air 08/19/16 07:30 Room Air Notes Mental Status: alert / awake / arousable, participated in evaluation Pt Amnestic to Procedure: Yes Nausea / Vomiting: adequately controlled Pain: adequately controlled Airway Patency, RR, SpO2: stable & adequate BP & HR: stable & adequate Hydration State: stable & adequate Anesthetic Complications: no major complications apparent
[2016-08-19] MEDS ORDERED: NURSING DECISION MEDICATION ORDER SCH (23:00)
--- NOTE | 2016-08-19 23:44 | OPERATIVE REPORT ---
DATE OF OPERATION: 08/19/2016 PREOPERATIVE DIAGNOSES: 1. Right calcaneal osteomyelitis. 2. Right posterior diabetic necrotic heel wound. 3. Achilles tendon rupture. 4. Avulsion fracture, superior calcaneus. POSTOPERATIVE DIAGNOSES: Same. PROCEDURES: 1. Irrigation and debridement, right heel diabetic necrotic wound. 2. Debridement of calcaneal bone. 3. Debridement of Achilles tendon. 4. Debridement of skin and fascia. 5. Excision of avulsion fracture, superior posterior calcaneus. 6. Implantation of antibiotic laden Stimulan beads. SURGEON: Onur Blandon DO. SCUBA INSTRUCTOR: Severo Crespo PA-C who was present for patient positioning, sterile prep and drape, management of retractors and instruments. He was present through the critical portions of the case including wound closure, application of sterile dressing and transport of the patient to recovery. ANESTHESIA: General endotracheal tube. SPECIMENS: Aerobic, anaerobic, Gram stain and calcaneal bone for pathology. DRAINS: Hemovac 10-Guine[place] x1. COMPLICATIONS: None. BLOOD LOSS: 15 mL. PERTINENT HISTORY: This is a 76-year-old gentleman who has had ongoing right posterior calcaneal heel breakdown, wound necrosis and was being treated at the wound care center. He had noted on his last debridement that he had increased bleeding, then he was at home, tried to stand and turn, felt a pop, unable to ambulate in the posterior aspect of his right heel and lower extremity. He presented to [facility] and was admitted to the hospital. The patient was placed on IV antibiotics, noted to have an avulsion fracture of the superior posterior calcaneus as well as a spontaneous rupture of his Achilles tendon. The patient was then admitted to the hospital, IV antibiotics, and orthopedics was consulted. The patient was then unable to have surgery due to elevated drug-induced coagulopathy and anemia. The patient after he was optimized, was then scheduled for surgery as indicated. All potential risks, benefits, complications, alternatives, rehab, potential for incomplete relief of symptoms, need for further surgery, DVT, PE, , persistent pain, swelling, scarring, weakness, neurovascular injury, wound complications, inability to reattach the Achilles tendon, possibility of partial or complete amputation of the lower extremity including below knee amputation was discussed with patient. The patient and family decided to proceed with the procedure as indicated. DESCRIPTION OF PROCEDURE: The patient was taken to operative suite, placed supine on the operating room table. After review of consent and identification of proper operative site, patient was anesthetized and endotracheal tube was placed. Tourniquet was placed high on the right thigh over cast padding. Next, patient was then rolled prone over well-padded bolsters. All bony prominences were properly padded and protected. Next, right lower extremity was then sterilely prepped and draped in usual fashion, elevated and tourniquet inflated to 300 mmHg at the level of the gastrocsoleus due to the fact that patient recently had a revascularization procedure with stenting around the proximal thigh. Next, the necrotic posterior heel pad was then debrided with 15 blade scalpel. This included the skin down to the level of the fascia. Next, the rongeur was then used to debride soft tissue surrounding the open posterior heel necrotic wound. Next, aerobic, anaerobic, Gram stain cultures were obtained and then a sample of softened posterior calcaneal bone was excised with a rongeur from the posterior calcaneus. Superficial portion of the bone was noted to be significantly softened, the deeper bone appeared to be more normal in consistency and appearance. Next, a curette was then used to curet the posterior aspect of the calcaneus as well as the surrounding areas of the necrotic wound of the posterior heel. Next, the avulsion fracture of the pole from the superior posterior aspect of the calcaneus was then resected with a rongeur. The Achilles tendon distal end was then carefully debrided with a rongeur. After this was completed, pulsatile lavage 6 liters of bacitracin was then used to cleanse the posterior wound. The heel pad was also irrigated. The color and consistency appeared far more normal after debridement of the necrotic eschar of the posterior aspect of the calcaneus with 15 blade scalpels. New top sheet and top gloves were applied and then the antibiotic laden Stimulan beads including gentamicin and vancomycin powder was mixed and then placed in the bead, forming mat and then the small beads were then packed in and around the distal Achilles, the medial and lateral gutters of the posterior ankle and underneath the flap pad of tissue at the posterior heel. After this was completed, a 10-Guinean Hemovac drain was placed in posterior lateral aspect of the ankle and then the posterior skin flap was then loosely closed over the Stimulan beads and the drain using interrupted 4-0 nylon sutures. Next, a sterile compressive soft dressing was applied overwrapped with an Ever wrap. The tourniquet was released. The patient was awakened and taken to recovery in stable condition. I attest to the content of the Intraoperative Record and any orders documented therein. Any exceptio ns are noted below.
[2016-08-20] VITALS (8 sets, daily range): BP systolic 83–102; BP diastolic 42–62; PULSE 56–90; TEMP 36.5–37.2; O2SAT 96–98
[2016-08-20 06:49] LABS: INR 1.2 (0.9-1.1)
[2016-08-20 07:11] LABS: HEMATOCRIT 29.3 % (42-52); MEAN CORPUSCULAR HEMOGLOBIN 31.7 pg (25-34); MEAN CORPUSCULAR HGB CONC 31.4 g/dl (32-36); MEAN PLATELET VOLUME 9.6 fL (7.4-10.4); PLATELET COUNT 253 K/uL (130-400); WHITE BLOOD COUNT 14.56 K/uL (4.8-10.8)
[2016-08-20 07:19] LABS: BUN/CREATININE RATIO 8.9 (10-20); CALCIUM 8.1 mg/dl (8.5-10.1); CREATININE 4.2 mg/dl (0.60-1.40); POTASSIUM 3.2 mmol/L (3.5-5.1)
--- NOTE | 2016-08-20 09:16 | Orthopedic Progress Note ---
Orthopedic Progress Note Date of Service Aug 20, 2016. Subjective Post OP Day: 1 Reports: feeling well, Denies: SOB, calf pain, chest pain, light headedness, nausea / vomiting Objective calves soft nontender, N/V intact, capillary refill less than 2 sec., dressing C /D/I, A&O x3, toes mobile Date Time Temp Pulse Resp B/P Pulse Ox O2 Delivery O2 Flow Rate FiO2 08/20/16 07:10 36.9 90 18 90/58 97 Room Air 08/20/16 03:20 37.2 69 18 102/62 97 Room Air 08/19/16 22:54 37.2 62 18 117/63 98 Room Air 08/19/16 22:00 57 120/60 08/19/16 19:46 36.4 57 17 102/58 100 Nasal Cannula 2.0 08/19/16 19:31 36.8 77 96/57 08/19/16 18:49 36.8 77 16 96/57 98 Nasal Cannula 2.0 08/19/16 17:48 36.8 57 17 105/62 100 Nasal Cannula 2.0 08/19/16 17:15 36.4 58 17 100/58 100 Nasal Cannula 2.0 08/19/16 16:45 96 Nasal Cannula 2.0 08/19/16 16:45 Nasal Cannula 2.0 08/19/16 16:25 43 16 101/44 100 Nasal Cannula 2 08/19/16 16:15 37.0 43 16 100/43 100 Nasal Cannula 2 08/19/16 16:05 59 24 101/44 98 Nasal Cannula 2 08/19/16 15:55 45 14 97/41 100 Nasal Cannula 2 08/19/16 15:45 37.2 43 16 97/40 100 Nasal Cannula 2 08/19/16 15:35 43 16 104/41 100 Nasal Cannula 2 08/19/16 15:30 45 12 92/46 100 Nasal Cannula 2 08/19/16 15:20 36.1 49 18 101/42 100 Nasal Cannula 2 08/19/16 15:10 52 16 104/45 100 Nasal Cannula 2 08/19/16 15:00 62 16 109/46 100 Mask 10 08/19/16 14:50 59 18 105/50 100 Mask 10 08/19/16 14:44 36.3 78 16 114/63 100 Mask 10 Laboratory Results 24 Hours: Test 08/20/16 06:00 Hematocrit 29.3 % Hemoglobin 9.2 g/dL Prothromb Time International Ratio 1.2 Prothrombin Time 13.0 SECONDS Assessment & Plan Assessment: POD #1 Irrigation and debridment right posterior heel necrotic diabetic wound, debridement right posterior necrotic calcaneal bone, debridement Achilles tendon, Excision avulsion fracture posterior calcaneus, debridement skin and fascia posterior heel, implantation antibiotic laden stimulan beads . Patricia sensitive Staph Aureus growing Elevated INR Anemia Plan: Pt will possibly need a delayed repair of the Achilles Tendon if the infection can be cleared and soft tissue coverage is possible. Continue to follow for wound care Inhouse Planning Pain Management: Ultram, Morphine Discharge Planning Discharge Planning: uncertain
[2016-08-20] MEDS: CARVEDILOL 12.5 MG TAB PO SCH ×2 (09:18→20:38)
[2016-08-20] MEDS: CALCIUM ACETATE 667MG GELCAP PO SCH ×3 (09:18→17:46)
[2016-08-20] MEDS: CHOLECALCIFEROL 1000 INTER.UNIT TAB PO SCH (09:20)
[2016-08-20] MEDS: OMEGA-3 (PURIFIED FISH OIL) 1 GM CAP PO SCH (09:20)
[2016-08-20] MEDS: RANOLAZINE 500 MG ER TAB PO SCH ×2 (09:20→20:41)
[2016-08-20] MEDS: FUROSEMIDE 40 MG TAB PO SCH (09:20)
[2016-08-20] MEDS: MULTIVITAMIN TAB PO SCH (09:20)
[2016-08-20] MEDS: CITALOPRAM 20 MG TAB PO SCH (09:20)
[2016-08-20] MEDS: AcetaZOLAMIDE 250 MG TAB PO SCH ×2 (09:20→20:42)
[2016-08-20] MEDS: PANTOprazole SOD 40 MG TAB PO SCH (09:21)
--- NOTE | 2016-08-20 09:23 | Nephrology Progress Note ---
Nephrology Progress Note Date of Service: Aug 20, 2016. Subjective 76 yo male with peritoneal dialysis who has achilles tendon rupture as well as osteo of the calcaneous. on antibiotics. underwent OR procedure yesterday for debridement of wound. went well. pt in good spirits. eating breakfast. no complaints. Objective Date Time Temp Pulse Resp B/P Pulse Ox O2 Delivery O2 Flow Rate FiO2 08/20/16 07:10 36.9 90 18 90/58 97 Room Air 08/20/16 03:20 37.2 69 18 102/62 97 Room Air 08/19/16 22:54 37.2 62 18 117/63 98 Room Air 08/19/16 22:00 57 120/60 08/19/16 19:46 36.4 57 17 102/58 100 Nasal Cannula 2.0 08/19/16 19:31 36.8 77 96/57 08/19/16 18:49 36.8 77 16 96/57 98 Nasal Cannula 2.0 08/19/16 17:48 36.8 57 17 105/62 100 Nasal Cannula 2.0 08/19/16 17:15 36.4 58 17 100/58 100 Nasal Cannula 2.0 08/19/16 16:45 96 Nasal Cannula 2.0 08/19/16 16:45 Nasal Cannula 2.0 08/19/16 16:25 43 16 101/44 100 Nasal Cannula 2 08/19/16 16:15 37.0 43 16 100/43 100 Nasal Cannula 2 08/19/16 16:05 59 24 101/44 98 Nasal Cannula 2 08/19/16 15:55 45 14 97/41 100 Nasal Cannula 2 08/19/16 15:45 37.2 43 16 97/40 100 Nasal Cannula 2 08/19/16 15:35 43 16 104/41 100 Nasal Cannula 2 08/19/16 15:30 45 12 92/46 100 Nasal Cannula 2 08/19/16 15:20 36.1 49 18 101/42 100 Nasal Cannula 2 08/19/16 15:10 52 16 104/45 100 Nasal Cannula 2 08/19/16 15:00 62 16 109/46 100 Mask 10 08/19/16 14:50 59 18 105/50 100 Mask 10 08/19/16 14:44 36.3 78 16 114/63 100 Mask 10 Physical Exam: General-aaox3 Eyes-no scleral icterus ENT-mmm Neck-supple Lungs-cta Heart-2/6 systolic murmur, rrr Abdomen-pd catheter in place, soft, nontender Extremities-right heel ulcer-wrapped Neuro-nonfocal Current Inpatient Medications Medications (Trade) Dose Ordered Sig/Andrei Route Start Time Stop Time Status Last Admin Dose Admin Acetaminophen (Tylenol Tab) 650 mg Q4H PRN PO 08/15/16 00:15 09/14/16 00:14 Polyethylene (Miralax Powder Packet) 17 gm DAILY PRN PO 08/15/16 00:15 09/14/16 00:14 08/18/16 09:03 17 GM Ondansetron HCl (Zofran Inj) 4 mg Q6H PRN IV 08/15/16 00:15 09/14/16 00:14 Glucose (Glucose 40% Gel) 15-30 GRAMS 15 GRAMS... UD PRN PO 08/15/16 00:15 09/14/16 00:14 Glucose (Glucose Chew Tab) 4-8 Tablets 4 Tabl... UD PRN PO 08/15/16 00:15 09/14/16 00:14 Dextrose (Dextrose 50% 50ML Syringe) 25-50ML OF 50% DW IV FOR... UD PRN IV 08/15/16 00:15 09/14/16 00:14 Glucagon (Glucagon Inj) 1 mg UD PRN SQ 08/15/16 00:15 09/14/16 00:14 Miscellaneous Information (Consult Glycemic Management Pharmacy) 1 ea DAILY PRN N/A 08/15/16 02:18 09/14/16 02:17 Acetazolamide (Diamox Tab) 250 mg BID PO 08/15/16 09:00 09/14/16 08:59 08/19/16 22:03 250 MG Calcium Acetate (Phoslo Cap) 667 mg AC PO 08/15/16 08:00 09/14/16 07:59 08/19/16 18:59 667 MG Carvedilol (Coreg Tab) 12.5 mg BID PO 08/15/16 09:00 09/14/16 08:59 08/18/16 21:56 12.5 MG Digoxin (Lanoxin Tab) 0.125 mg DAILY@1600 PO 08/15/16 16:00 3/29/17 15:59 08/18/16 20:04 0.125 MG Fish Oil ([place]-3 (Purified Fish Oil) Cap) 1 gm DAILY PO 08/15/16 09:00 09/14/16 08:59 08/18/16 09:04 1 GM Folic Acid (Folvite Tab) 1 mg DAILY PO 08/15/16 09:00 09/14/16 08:59 08/18/16 09:05 1 MG Furosemide (Lasix Tab) 80 mg DAILY PO 08/15/16 09:00 09/14/16 08:59 08/18/16 09:06 80 MG Multivitamins (Multivitamin Tab) 1 tab DAILY PO 08/15/16 09:00 09/14/16 08:59 08/18/16 09:05 1 TAB Ranolazine (Ranexa ER Tab) 500 mg BID PO 08/15/16 09:00 09/14/16 08:59 08/19/16 22:03 500 MG Cholecalciferol (Vitamin D Tab) 1,000 inter.unit QAM PO 08/15/16 09:00 09/14/16 08:59 08/18/16 09:05 1,000 INTER.UNIT Citalopram Hydrobromide (celeXA TAB) 20 mg QAM PO 08/15/16 09:00 09/14/16 08:59 08/18/16 09:04 20 MG Pantoprazole Sodium (Protonix Tab) 40 mg QAM PO 08/15/16 09:00 09/14/16 08:59 08/18/16 09:05 40 MG Morphine Sulfate (MoRPHine SULFATE INJ) 2 mg Q6H PRN IV 08/15/16 15:45 08/29/16 15:44 Tramadol HCl (Ultram Tab) 50 mg Q6H PRN PO 08/15/16 15:45 09/14/16 15:44 Miscellaneous Information 1 ea 1 ea UD PRN N/A 08/17/16 11:15 09/16/16 11:14 Cefazolin Sodium/ Dextrose (Ancef Iv/D5 50ml) 52.5 ml @ 105 mls/hr Q12 IV 08/17/16 21:00 09/28/16 20:59 08/19/16 22:08 105 MLS/HR Insulin Glargine (Lantus Solostar Pen) SEE PROTOCOL DAILY [place] 08/18/16 09:00 09/17/16 08:59 Future hold 08/18/16 09:56 30 UNIT Insulin Aspart (novoLOG ASPART) SLIDING SCALE If C... ACHS [place] 08/20/16 08:00 09/19/16 07:59 Last 24 Hours Test 08/19/16 12:01 08/19/16 14:48 08/19/16 16:55 08/19/16 20:46 Bedside Glucose 130 mg/dl 102 mg/dl 99 mg/dl 161 mg/dl Test 08/19/16 22:57 08/20/16 06:00 Bedside Glucose 171 mg/dl White Blood Count 14.56 K/uL Red Blood Count 2.90 M/uL Hemoglobin 9.2 g/dL Hematocrit 29.3 % Mean Corpuscular Volume 101.0 fL Mean Corpuscular Hemoglobin 31.7 pg Mean Corpuscular Hemoglobin Concent 31.4 g/dl RDW Standard Deviation 65.8 fL RDW Coefficient of Variation 17.7 % Platelet Count 253 K/uL Mean Platelet Volume 9.6 fL Prothrombin Time 13.0 SECONDS Prothromb Time International Ratio 1.2 Sodium Level 143 mmol/L Potassium Level 3.2 mmol/L Chloride Level 105 mmol/L Carbon Dioxide Level 26 mmol/L Anion Gap 12.0 mmol/L Blood Urea Nitrogen 37 mg/dl Creatinine 4.20 mg/dl Est Creatinine Clear Calc Drug Dose 16.6 ml/min Estimated GFR () 14.9 Estimated GFR (Non- 12.8 BUN/Creatinine Ratio 8.9 Random Glucose 114 mg/dl Calcium Level 8.1 mg/dl Assessment & Plan ESRD-on greens and yellows. volume status appropriate. will continue current prescription.
[2016-08-20] MEDS: INSULIN ASPART 100 UNITS/ML 3 ML PEN SC SCH ×4 (09:28→21:00)
[2016-08-20] MEDS: CEFAZOLIN IV 500 MG in DEXTROSE 5% 50ML 50 ML IV SCH ×2 (09:29→20:37)
[2016-08-20] MEDS: INSULIN GLARGINE SOLOSTAR 100 UNITS/ML 3 ML PEN SC SCH (09:29)
[2016-08-20] MEDS ORDERED: SODIUM CHLORIDE 0.9% 500ML 500 ML IV SCH (14:45)
--- NOTE | 2016-08-20 15:08 | Progress Note ---
Medicine Progress Note Date & Time of Visit: Aug 20, 2016 at 14:58. Subjective s/p Debridement yesterday son at bedside, patient has confusional episodes but improving per son denies chest pain, dyspnea, dizziness denies pain no other symptoms Objective Last 8 Hrs Date Time Temp Pulse Resp B/P Pulse Ox O2 Delivery O2 Flow Rate FiO2 08/20/16 11:44 36.5 90 18 83/42 97 Room Air 08/20/16 08:45 36.9 90 18 90/58 08/20/16 08:40 Room Air 08/20/16 07:10 36.9 90 18 /58 97 Room Air Physical Exam: General- oriented x 3, not in distress, speaks in sentences Eyes-anicteric Neck- no JVD Lungs- clear b/s bilaterally, no rales/wheezes Heart- normal rate, regular rhythm; (+) 3/6 murmur Abdomen- normal bowel sounds, soft, nontender Extremities- (+) heavy dressing on the right foot no pretibial edema, no calf tenderness; peripheral pulses intact Neuro- alert, oriented x 3;no gross focal deficits Skin- warm & dry Laboratory Results: Last 24 Hours Test 08/19/16 16:55 08/19/16 20:46 08/19/16 22:57 08/20/16 06:00 Bedside Glucose 99 mg/dl 161 mg/dl 171 mg/dl White Blood Count 14.56 K/uL Red Blood Count 2.90 M/uL Hemoglobin 9.2 g/dL Hematocrit 29.3 % Mean Corpuscular Volume 101.0 fL Mean Corpuscular Hemoglobin 31.7 pg Mean Corpuscular Hemoglobin Concent 31.4 g/dl RDW Standard Deviation 65.8 fL RDW Coefficient of Variation 17.7 % Platelet Count 253 K/uL Mean Platelet Volume 9.6 fL Prothrombin Time 13.0 SECONDS Prothromb Time International Ratio 1.2 Sodium Level 143 mmol/L Potassium Level 3.2 mmol/L Chloride Level 105 mmol/L Carbon Dioxide Level 26 mmol/L Anion Gap 12.0 mmol/L Blood Urea Nitrogen 37 mg/dl Creatinine 4.20 mg/dl Est Creatinine Clear Calc Drug Dose 16.6 ml/min Estimated GFR () 14.9 Estimated GFR (Non- 12.8 BUN/Creatinine Ratio 8.9 Random Glucose 114 mg/dl Calcium Level 8.1 mg/dl Test 08/20/16 09:16 08/20/16 11:40 Bedside Glucose 96 mg/dl 126 mg/dl Assessment & Plan 76 year old male with history of CAD, CABG, CHF Systolic type, Mitral and Aortic Valve Replacement, A fib on Coumadin, ESRD, PAD, DM, HTN presenting with right foot pain. Achilles Tendon Rupture 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, Calcaneus - afebrile, WBC improving - s/p Debridement 08/19/16 - blood cultures :negative wound culture: Staph, MSSA bone culture: Staph echo: possible vegetation on mitral valve leaflet - on Dapto + Zosyn--> changed to Cefazolin Day 3 blood cultures drawn after antibiotics started will consult Construction Representative for possible HUMBLE ID consulted, appreciate the consult Ortho consulted, appreciate the recommendations CAD s/p CABG -stable - hold Lisinopril for marginal BP - on Aspirin Atrial fibrillation - SR, HR controlled - continue Coreg and Digoxin - coumadin held for surgery, given vitamin k INR 1.2 discussed with Ortho, may resume coumadin today s/p mitral and aortic valve replacements (Bioprosthetic) - coumadin held for surgery, given vitamin k INR 1.2 discussed with Ortho, may resume coumadin today echo: possible vegetation on mitral valve leaflet - on Dapto + Zosyn--> changed to Cefazolin Day 3 blood cultures drawn after antibiotics started will consult Construction Representative for possible HUMBLE Chronic systolic heart failure - patient seems dehydrated today- clinically dry, BP low will hold diuretics, give 500cc NSS at 50cc/hr Anemia-likely multifactorial but 2/2 mainly to ESRD - on Procrit. - given 2 units PRBC Hg stable at 9 ESRD on peritoneal dialysis -consulted Nephrology Severe PAD-s/p recent vascular intervention last week s/p 3 stents placed. DM II -ISS/Lantus, glycemic pharmacy consult placed History of Prostate Cancer Depression-cont Celexa DVT prop - on coumadin FULL CODE Dispo pending Current Inpatient Medications: Current Inpatient Medications Medications (Trade) Dose Ordered Sig/Andrei Route Start Time Stop Time Status Last Admin Dose Admin Acetaminophen (Tylenol Tab) 650 mg Q4H PRN PO 08/15/16 00:15 09/14/16 00:14 Polyethylene (Miralax Powder Packet) 17 gm DAILY PRN PO 2/27/17 00:15 09/14/16 00:14 08/18/16 09:03 17 GM Ondansetron HCl (Zofran Inj) 4 mg Q6H PRN IV 08/15/16 00:15 09/14/16 00:14 Glucose (Glucose 40% Gel) 15-30 GRAMS 15 GRAMS... UD PRN PO 08/15/16 00:15 09/14/16 00:14 Glucose (Glucose Chew Tab) 4-8 Tablets 4 Tabl... UD PRN PO 08/15/16 00:15 09/14/16 00:14 Dextrose (Dextrose 50% 50ML Syringe) 25-50ML OF 50% DW IV FOR... UD PRN IV 08/15/16 00:15 09/14/16 00:14 Glucagon (Glucagon Inj) 1 mg UD PRN SQ 08/15/16 00:15 09/14/16 00:14 Miscellaneous Information (Consult Glycemic Management Pharmacy) 1 ea DAILY PRN N/A 08/15/16 02:18 09/14/16 02:17 Acetazolamide (Diamox Tab) 250 mg BID PO 08/15/16 09:00 09/14/16 08:59 08/20/16 09:20 250 MG Calcium Acetate (Phoslo Cap) 667 mg AC PO 08/15/16 08:00 09/14/16 07:59 08/20/16 13:39 667 MG Carvedilol (Coreg Tab) 12.5 mg BID PO 08/15/16 09:00 09/14/16 08:59 08/20/16 09:18 12.5 MG Digoxin (Lanoxin Tab) 0.125 mg DAILY@1600 PO 08/15/16 16:00 09/14/16 15:59 08/18/16 20:04 0.125 MG Fish Oil ([place]-3 (Purified Fish Oil) Cap) 1 gm DAILY PO 08/15/16 09:00 09/14/16 08:59 08/20/16 09:20 1 GM Folic Acid (Folvite Tab) 1 mg DAILY PO 08/15/16 09:00 09/14/16 08:59 08/20/16 09:20 1 MG Furosemide (Lasix Tab) 80 mg DAILY PO 08/15/16 09:00 09/14/16 08:59 08/20/16 09:20 80 MG Multivitamins (Multivitamin Tab) 1 tab DAILY PO 08/15/16 09:00 09/14/16 08:59 08/20/16 09:20 1 TAB Ranolazine (Ranexa ER Tab) 500 mg BID PO 08/15/16 09:00 09/14/16 08:59 08/20/16 09:20 500 MG Cholecalciferol (Vitamin D Tab) 1,000 inter.unit QAM PO 08/15/16 09:00 09/14/16 08:59 08/20/16 09:20 1,000 INTER.UNIT Citalopram Hydrobromide (celeXA TAB) 20 mg QAM PO 08/15/16 09:00 09/14/16 08:59 08/20/16 09:20 20 MG Pantoprazole Sodium (Protonix Tab) 40 mg QAM PO 08/15/16 09:00 09/14/16 08:59 08/20/16 09:21 40 MG Morphine Sulfate (MoRPHine SULFATE INJ) 2 mg Q6H PRN IV 08/15/16 15:45 08/29/16 15:44 Tramadol HCl (Ultram Tab) 50 mg Q6H PRN PO 08/15/16 15:45 09/14/16 15:44 Miscellaneous Information 1 ea 1 ea UD PRN N/A 08/17/16 11:15 09/16/16 11:14 Cefazolin Sodium/ Dextrose (Ancef Iv/D5 50ml) 52.5 ml @ 105 mls/hr Q12 IV 08/17/16 21:00 09/28/16 20:59 08/20/16 09:29 105 MLS/HR Insulin Glargine (Lantus Solostar Pen) SEE PROTOCOL DAILY [place] 08/18/16 09:00 09/17/16 08:59 Future hold 08/20/16 09:29 15 UNIT Insulin Aspart (novoLOG ASPART) SLIDING SCALE If C... ACHS SC 08/20/16 08:00 09/19/16 07:59 08/20/16 09:28 3 UNITS
--- NOTE | 2016-08-20 15:11 | Progress Note ---
Medicine Progress Note Date & Time of Visit: Aug 20, 2016 at 15:09. delayed entry date of service 08/19/16 Subjective resting in bed, comfortable denies dyspnea, chest pain, palpitations, dizziness states he feels fine no other symptoms Objective Last 8 Hrs Date Time Temp Pulse Resp B/P Pulse Ox O2 Delivery O2 Flow Rate FiO2 08/20/16 11:44 36.5 90 18 83/42 97 Room Air 08/20/16 08:45 36.9 90 18 90/58 08/20/16 08:40 Room Air 08/20/16 07:10 36.9 90 18 90/58 97 Room Air Physical Exam: Physical Exam: General- oriented x 3, not in distress, speaks in sentences Eyes-anicteric Neck- no JVD Lungs- clear b/s bilaterally, no rales/wheezes Heart- normal rate, regular rhythm; (+) 3/6 murmur Abdomen- normal bowel sounds, soft, nontender Extremities- (+) eschar on the right heel no pretibial edema, no calf tenderness; peripheral pulses intact Neuro- alert, oriented x 3;no gross focal deficits Skin- warm & dry Laboratory Results: Last 24 Hours Test 08/19/16 16:55 08/19/16 20:46 08/19/16 22:57 08/20/16 06:00 Bedside Glucose 99 mg/dl 161 mg/dl 171 mg/dl White Blood Count 14.56 K/uL Red Blood Count 2.90 M/uL Hemoglobin 9.2 g/dL Hematocrit 29.3 % Mean Corpuscular Volume 101.0 fL Mean Corpuscular Hemoglobin 31.7 pg Mean Corpuscular Hemoglobin Concent 31.4 g/dl RDW Standard Deviation 65.8 fL RDW Coefficient of Variation 17.7 % Platelet Count 253 K/uL Mean Platelet Volume 9.6 fL Prothrombin Time 13.0 SECONDS Prothromb Time International Ratio 1.2 Sodium Level 143 mmol/L Potassium Level 3.2 mmol/L Chloride Level 105 mmol/L Carbon Dioxide Level 26 mmol/L Anion Gap 12.0 mmol/L Blood Urea Nitrogen 37 mg/dl Creatinine 4.20 mg/dl Est Creatinine Clear Calc Drug Dose 16.6 ml/min Estimated GFR () 14.9 Estimated GFR (Non- 12.8 BUN/Creatinine Ratio 8.9 Random Glucose 114 mg/dl Calcium Level 8.1 mg/dl Test 08/20/16 09:16 08/20/16 11:40 Bedside Glucose 96 mg/dl 126 mg/dl Assessment & Plan Assessment & Plan 76 year old male with history of CAD, CABG, CHF Systolic type, Mitral and Aortic Valve Replacement, A fib on Coumadin, ESRD, PAD, DM, HTN presenting with right foot pain. Achilles Tendon Rupture 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, Calcaneus - afebrile, WBC improved - blood cultures :negative wound culture: Staph, MSSA - on Dapto + Zosyn--> changed to Cefazolin ID consulted, appreciate the consult Ortho consulted, for Debridement Pre- Op Eval given vitamin K inr 1.4 given 2 units pRBC, Hg 9 CAD s/p CABG -stable - hold Lisinopril for marginal BP - on Aspirin Atrial fibrillation - SR, HR controlled - continue Coreg and Digoxin - coumadin held s/p mitral and aortic valve replacements (Bioprosthetic) - coumadin held Chronic systolic heart failure -compensated - continue diuretics for now Anemia-likely multifactorial but 2/2 mainly to ESRD - on Procrit given 2 units pRBC ESRD on peritoneal dialysis -consulted Nephrology Severe PAD-s/p recent vascular intervention last week s/p 3 stents placed. DM II -ISS/Lantus, glycemic pharmacy consult placed History of Prostate Cancer Depression-cont Celexa DVT prop - on coumadin (held for now) FULL CODE Dispo pending Current Inpatient Medications: Current Inpatient Medications Medications (Trade) Dose Ordered Sig/Andrei Route Start Time Stop Time Status Last Admin Dose Admin Acetaminophen (Tylenol Tab) 650 mg Q4H PRN PO 08/15/16 00:15 09/14/16 00:14 Polyethylene (Miralax Powder Packet) 17 gm DAILY PRN PO 08/15/16 00:15 09/14/16 00:14 08/18/16 09:03 17 GM Ondansetron HCl (Zofran Inj) 4 mg Q6H PRN IV 08/15/16 00:15 09/14/16 00:14 Glucose (Glucose 40% Gel) 15-30 GRAMS 15 GRAMS... UD PRN PO 08/15/16 00:15 09/14/16 00:14 Glucose (Glucose Chew Tab) 4-8 Tablets 4 Tabl... UD PRN PO 08/15/16 00:15 09/14/16 00:14 Dextrose (Dextrose 50% 50ML Syringe) 25-50ML OF 50% DW IV FOR... UD PRN IV 08/15/16 00:15 09/14/16 00:14 Glucagon (Glucagon Inj) 1 mg UD PRN SQ 08/15/16 00:15 09/14/16 00:14 Miscellaneous Information (Consult Glycemic Management Pharmacy) 1 ea DAILY PRN N/A 08/15/16 02:18 09/14/16 02:17 Acetazolamide (Diamox Tab) 250 mg BID PO 08/15/16 09:00 09/14/16 08:59 08/20/16 09:20 250 MG Calcium Acetate (Phoslo Cap) 667 mg AC PO 08/15/16 08:00 09/14/16 07:59 08/20/16 13:39 667 MG Carvedilol (Coreg Tab) 12.5 mg BID PO 08/15/16 09:00 09/14/16 08:59 08/20/16 09:18 12.5 MG Digoxin (Lanoxin Tab) 0.125 mg DAILY@1600 PO 08/15/16 16:00 09/14/16 15:59 08/18/16 20:04 0.125 MG Fish Oil ([place]-3 (Purified Fish Oil) Cap) 1 gm DAILY PO 08/15/16 09:00 09/14/16 08:59 08/20/16 09:20 1 GM Folic Acid (Folvite Tab) 1 mg DAILY PO 08/15/16 09:00 09/14/16 08:59 08/20/16 09:20 1 MG Furosemide (Lasix Tab) 80 mg DAILY PO 08/15/16 09:00 09/14/16 08:59 08/20/16 09:20 80 MG Multivitamins (Multivitamin Tab) 1 tab DAILY PO 08/15/16 09:00 09/14/16 08:59 08/20/16 09:20 1 TAB Ranolazine (Ranexa ER Tab) 500 mg BID PO 08/15/16 09:00 09/14/16 08:59 08/20/16 09:20 500 MG Cholecalciferol (Vitamin D Tab) 1,000 inter.unit QAM PO 08/15/16 09:00 09/14/16 08:59 08/20/16 09:20 1,000 INTER.UNIT Citalopram Hydrobromide (celeXA TAB) 20 mg QAM PO 08/15/16 09:00 09/14/16 08:59 08/20/16 09:20 20 MG Pantoprazole Sodium (Protonix Tab) 40 mg QAM PO 08/15/16 09:00 09/14/16 08:59 08/20/16 09:21 40 MG Morphine Sulfate (MoRPHine SULFATE INJ) 2 mg Q6H PRN IV 08/15/16 15:45 08/29/16 15:44 Tramadol HCl (Ultram Tab) 50 mg Q6H PRN PO 08/15/16 15:45 09/14/16 15:44 Miscellaneous Information 1 ea 1 ea UD PRN N/A 08/17/16 11:15 09/16/16 11:14 Cefazolin Sodium/ Dextrose (Ancef Iv/D5 50ml) 52.5 ml @ 105 mls/hr Q12 IV 08/17/16 21:00 09/28/16 20:59 08/20/16 09:29 105 MLS/HR Insulin Glargine (Lantus Solostar Pen) SEE PROTOCOL DAILY SC 08/18/16 09:00 09/17/16 08:59 Future hold 08/20/16 09:29 15 UNIT Insulin Aspart (novoLOG ASPART) SLIDING SCALE If C... ACHS SC 08/20/16 08:00 09/19/16 07:59 08/20/16 09:28 3 UNITS
[2016-08-20] MEDS ORDERED: POTASSIUM CHLORIDE 20 MEQ TABCR PO ONE (15:15)
[2016-08-20] MEDS: DIGOXIN 0.125 MG TAB PO SCH (17:00)
[2016-08-20] MEDS: WARFARIN SOD 3 MG TAB PO SCH (17:29)
[2016-08-21] VITALS (7 sets, daily range): BP systolic 95–108; BP diastolic 46–58; PULSE 45–73; TEMP 36.4–36.9; O2SAT 95–100
[2016-08-21 06:18] LABS: HEMATOCRIT 28.3 % (42-52); MEAN CELL VOLUME 100.7 fL (80-100); MEAN CORPUSCULAR HEMOGLOBIN 31.7 pg (25-34); MEAN CORPUSCULAR HGB CONC 31.4 g/dl (32-36); MEAN PLATELET VOLUME 9.4 fL (7.4-10.4); PLATELET COUNT 259 K/uL (130-400); RED BLOOD COUNT 2.81 M/uL (4.7-6.1); WHITE BLOOD COUNT 15.82 K/uL (4.8-10.8)
[2016-08-21 06:27] LABS: INR 1.2 (0.9-1.1)
[2016-08-21 06:50] LABS: BUN/CREATININE RATIO 8.7 (10-20); CALCIUM 8.1 mg/dl (8.5-10.1); CREATININE 4.4 mg/dl (0.60-1.40); POTASSIUM 3.2 mmol/L (3.5-5.1)
--- NOTE | 2016-08-21 07:39 | Nephrology Progress Note ---
Nephrology Progress Note Date of Service: Aug 21, 2016. Subjective 76 yo male with peritoneal dialysis who has achilles tendon rupture as well as osteo of the calcaneous. on antibiotics.pt hoping to eventually be discharged. right heel wrapped. tolerating pd well. no sob. Objective Date Time Temp Pulse Resp B/P Pulse Ox O2 Delivery O2 Flow Rate FiO2 08/21/16 07:03 36.5 73 18 107/58 97 Room Air 08/20/16 23:20 Room Air 08/20/16 23:06 36.8 56 18 94/51 96 Room Air 08/20/16 19:39 36.8 61 98/49 08/20/16 17:00 58 08/20/16 16:30 98 Room Air 08/20/16 15:17 36.8 61 16 98/49 98 Room Air 08/20/16 11:44 36.5 90 18 83/42 97 Room Air 08/20/16 08:45 36.9 90 18 90/58 08/20/16 08:40 Room Air Physical Exam: General-aaox3 Eyes-no scleral icterus ENT-mmm Neck-supple Lungs-clear Heart-regular Abdomen-pd catheter in place, soft, nontender Extremities-right heel ulcer-wrapped Neuro-nonfocal Current Inpatient Medications Medications (Trade) Dose Ordered Sig/Andrei Route Start Time Stop Time Status Last Admin Dose Admin Acetaminophen (Tylenol Tab) 650 mg Q4H PRN PO 08/15/16 00:15 09/14/16 00:14 Polyethylene (Miralax Powder Packet) 17 gm DAILY PRN PO 08/15/16 00:15 09/14/16 00:14 08/18/16 09:03 17 GM Ondansetron HCl (Zofran Inj) 4 mg Q6H PRN IV 08/15/16 00:15 09/14/16 00:14 Glucose (Glucose 40% Gel) 15-30 GRAMS 15 GRAMS... UD PRN PO 08/15/16 00:15 09/14/16 00:14 Glucose (Glucose Chew Tab) 4-8 Tablets 4 Tabl... UD PRN PO 08/15/16 00:15 09/14/16 00:14 Dextrose (Dextrose 50% 50ML Syringe) 25-50ML OF 50% DW IV FOR... UD PRN IV 08/15/16 00:15 09/14/16 00:14 Glucagon (Glucagon Inj) 1 mg UD PRN SQ 08/15/16 00:15 09/14/16 00:14 Miscellaneous Information (Consult Glycemic Management Pharmacy) 1 ea DAILY PRN N/A 08/15/16 02:18 09/14/16 02:17 Acetazolamide (Diamox Tab) 250 mg BID PO 08/15/16 09:00 09/14/16 08:59 08/20/16 20:42 250 MG Calcium Acetate (Phoslo Cap) 667 mg AC PO 08/15/16 08:00 09/14/16 07:59 08/20/16 17:46 667 MG Carvedilol (Coreg Tab) 12.5 mg BID PO 08/15/16 09:00 09/14/16 08:59 08/20/16 09:18 12.5 MG Digoxin (Lanoxin Tab) 0.125 mg DAILY@1600 PO 08/15/16 16:00 09/14/16 15:59 08/18/16 20:04 0.125 MG Fish Oil ([place]-3 (Purified Fish Oil) Cap) 1 gm DAILY PO 08/15/16 09:00 09/14/16 08:59 08/20/16 09:20 1 GM Folic Acid (Folvite Tab) 1 mg DAILY PO 08/15/16 09:00 09/14/16 08:59 08/20/16 09:20 1 MG Multivitamins (Multivitamin Tab) 1 tab DAILY PO 08/15/16 09:00 09/14/16 08:59 08/20/16 09:20 1 TAB Ranolazine (Ranexa ER Tab) 500 mg BID PO 08/15/16 09:00 09/14/16 08:59 08/20/16 20:41 500 MG Cholecalciferol (Vitamin D Tab) 1,000 inter.unit QAM PO 08/15/16 09:00 09/14/16 08:59 08/20/16 09:20 1,000 INTER.UNIT Citalopram Hydrobromide (celeXA TAB) 20 mg QAM PO 08/15/16 09:00 09/14/16 08:59 08/20/16 09:20 20 MG Pantoprazole Sodium (Protonix Tab) 40 mg QAM PO 08/15/16 09:00 09/14/16 08:59 08/20/16 09:21 40 MG Morphine Sulfate (MoRPHine SULFATE INJ) 2 mg Q6H PRN IV 08/15/16 15:45 08/29/16 15:44 Tramadol HCl (Ultram Tab) 50 mg Q6H PRN PO 08/15/16 15:45 09/14/16 15:44 Miscellaneous Information 1 ea 1 ea UD PRN N/A 08/17/16 11:15 09/16/16 11:14 Cefazolin Sodium/ Dextrose (Ancef Iv/D5 50ml) 52.5 ml @ 105 mls/hr Q12 IV 08/17/16 21:00 09/28/16 20:59 08/20/16 20:37 105 MLS/HR Insulin Glargine (Lantus Solostar Pen) SEE PROTOCOL DAILY SC 08/18/16 09:00 09/17/16 08:59 Future hold 08/20/16 09:29 15 UNIT Insulin Aspart (novoLOG ASPART) SLIDING SCALE If C... ACHS SC 08/20/16 08:00 09/19/16 07:59 08/20/16 09:28 3 UNITS Warfarin Sodium (Coumadin Tab) 3 mg DAILY@16 PO 08/20/16 17:00 09/19/16 16:59 08/20/16 17:29 3 MG Last 24 Hours Test 08/20/16 09:16 08/20/16 11:40 08/20/16 17:13 08/20/16 20:47 Bedside Glucose 96 mg/dl 126 mg/dl 120 mg/dl 143 mg/dl Test 08/21/16 05:52 White Blood Count 15.82 K/uL Red Blood Count 2.81 M/uL Hemoglobin 8.9 g/dL Hematocrit 28.3 % Mean Corpuscular Volume 100.7 fL Mean Corpuscular Hemoglobin 31.7 pg Mean Corpuscular Hemoglobin Concent 31.4 g/dl RDW Standard Deviation 64.0 fL RDW Coefficient of Variation 17.3 % Platelet Count 259 K/uL Mean Platelet Volume 9.4 fL Prothrombin Time 13.0 SECONDS Prothromb Time International Ratio 1.2 Sodium Level 143 mmol/L Potassium Level 3.2 mmol/L Chloride Level 105 mmol/L Carbon Dioxide Level 28 mmol/L Anion Gap 10.0 mmol/L Blood Urea Nitrogen 38 mg/dl Creatinine 4.40 mg/dl Est Creatinine Clear Calc Drug Dose 14.3 ml/min Estimated GFR () 14.1 Estimated GFR (Non- 12.1 BUN/Creatinine Ratio 8.7 Random Glucose 151 mg/dl Calcium Level 8.1 mg/dl Assessment & Plan ESRD-volume status appropriate. on one green and one yellow. no changes to the current pd rx. Anemia of renal failure-did get transfused prior to OR. did also get two doses of procrit while here so far. will continue to give intermittent procrit to try to get hg levels up to the 10 range.
[2016-08-21] MEDS: CARVEDILOL 12.5 MG TAB PO SCH ×2 (08:50→20:20)
[2016-08-21] MEDS: MULTIVITAMIN TAB PO SCH (08:51)
[2016-08-21] MEDS: CITALOPRAM 20 MG TAB PO SCH (08:51)
[2016-08-21] MEDS: PANTOprazole SOD 40 MG TAB PO SCH (08:51)
[2016-08-21] MEDS: CHOLECALCIFEROL 1000 INTER.UNIT TAB PO SCH (08:51)
[2016-08-21] MEDS: CALCIUM ACETATE 667MG GELCAP PO SCH ×3 (08:51→17:44)
[2016-08-21] MEDS: AcetaZOLAMIDE 250 MG TAB PO SCH ×2 (08:52→20:50)
[2016-08-21] MEDS: OMEGA-3 (PURIFIED FISH OIL) 1 GM CAP PO SCH (08:52)
[2016-08-21] MEDS: RANOLAZINE 500 MG ER TAB PO SCH ×2 (08:52→20:51)
[2016-08-21] MEDS: INSULIN ASPART 100 UNITS/ML 3 ML PEN SC SCH ×4 (08:58→20:54)
[2016-08-21] MEDS: INSULIN GLARGINE SOLOSTAR 100 UNITS/ML 3 ML PEN SC SCH (08:59)
[2016-08-21] MEDS: CEFAZOLIN IV 500 MG in DEXTROSE 5% 50ML 50 ML IV SCH ×2 (09:20→20:16)
--- NOTE | 2016-08-21 09:31 | Orthopedic Progress Note ---
Orthopedic Progress Note Date of Service Aug 21, 2016. Subjective Post OP Day: 2 Reports: feeling well, Denies: SOB, calf pain, chest pain, light headedness, nausea / vomiting Objective calves soft nontender, N/V intact, capillary refill less than 2 sec., dressing C /D/I (dressing changed today and drain pulled, no active draining), A&O x3, toes mobile Date Time Temp Pulse Resp B/P Pulse Ox O2 Delivery O2 Flow Rate FiO2 08/21/16 07:52 Room Air 08/21/16 07:03 36.5 73 18 107/58 97 Room Air 08/20/16 23:20 Room Air 08/20/16 23:06 36.8 56 18 94/51 96 Room Air 08/20/16 19:39 36.8 61 98/49 08/20/16 17:00 58 08/20/16 16:30 98 Room Air 08/20/16 15:17 36.8 61 16 98/49 98 Room Air 08/20/16 11:44 36.5 90 18 83/42 97 Room Air Laboratory Results 24 Hours: Test 08/21/16 05:52 Hematocrit 28.3 % Hemoglobin 8.9 g/dL Prothromb Time International Ratio 1.2 Prothrombin Time 13.0 SECONDS Assessment & Plan Assessment: POD #1 Irrigation and debridment right posterior heel necrotic diabetic wound, debridement right posterior necrotic calcaneal bone, debridement Achilles tendon, Excision avulsion fracture posterior calcaneus, debridement skin and fascia posterior heel, implantation antibiotic laden stimulan beads . Patricia sensitive Staph Aureus growing Elevated INR Anemia Plan: Pt will possibly need a delayed repair of the Achilles Tendon if the infection can be cleared and soft tissue coverage is possible. Continue to follow for wound care Inhouse Planning Pain Management: Ultram, Morphine DVT Prophylaxis: TEDs, SCDs, Coumadin Discharge Planning Discharge Planning: uncertain
--- NOTE | 2016-08-21 10:54 | Pharmacy Progress Note ---
Glycemic: Assessment & Plan Date of Service Aug 21, 2016. Assessment & Plan Glycemic control is optimal at this time. BSGs ranging 120 - 151 mg/dl over the past 24hrs. Insulin regimen appears basal heavy, however, poor po intake. Will adjust Lantus scale to avoid overcorrecting BSGs and inducing hypoglycemia. No other changes required to DM regimen. * Basal insulin: Lantus qAM per scale: 15 units for BSG below 120 mg /dl; 20 units for BSG 120-180 mg/dl; 25 units for BSG above 180 mg/dl * Correctional Insulin: Novolog Correction per scale ACHS Goal Range: Low 110 mg/dL - High 140 mg/dL Correction Factor: 30 mg/dL/unit * Prandial insulin: Per carb ratio of 1 unit per 10 grams CHO consumed Pharmacy will continue to monitor patient daily and write orders per [facility] inpatient glycemic control protocol. Thanks. * Please note that the plan above was derived based on current level of insulin resistance and hospital stress. These recommendations are appropriate for inpatient admission only. Plan of care upon discharge will need to be reassessed to avoid potential outpatient hypo/hyperglycemia.
--- NOTE | 2016-08-21 13:54 | CARDIOLOGY CONSULTATION ---
DATE OF CONSULTATION: 08/21/2016 REFERRING PHYSICIAN: Dr. Moya. PRIMARY CARE PHYSICIAN: Dr. Obregon. PRIMARY MAIL DELIVERY SUPERVISOR: Through [facility]. INDICATIONS: Question mitral valve vegetation. HISTORY OF PRESENT ILLNESS: The patient is a very complex 76-year-old male who is seen and examined and extensive medical records reviewed. His history is notable for history of past coronary artery bypass grafting and aortic and mitral valve replacement in October of 2008, receiving a 25 mm [place] bioprosthesis in the aortic valve position and 29 mm [place] bioprosthesis in the mitral valve position. He also received coronary artery bypass grafting x5 for severe multivessel disease. He carries an underlying history of ischemic cardiomyopathy with variable degree of LV dysfunction. He has been recommended to undergo prior pacer defibrillator implantation in the past, which he declined. Underlying issues include in addition to above, end-stage renal disease, on peritoneal dialysis, chronic atrial fibrillation, on anticoagulation with Coumadin, history of recurrent difficulties with osteomyelitis and gangrenous peripheral vascular disease status post past interventions and most recent attempted revascularization of lower extremities in June 2016 without success. In addition to above, he carries a history of hypertension, hyperlipidemia and diabetes mellitus. The patient was hospitalized now on 08/15/2016 with osteomyelitis and Staph aureus infection with Achilles tendon rupture. Wound is growing methicillin-sensitive Staph aureus. In the course of evaluation, patient has undergone echocardiogram with study demonstrating mild to moderate left ventricular dysfunction, EF 40-45% by my examination with moderate left ventricular hypertrophy, extensive inferior posterior akinesis. There is a bioprosthetic aortic and mitral valve. Bioprosthetic mitral valve has a mobile area at the base of the structure, possibly representing vegetation. There is a mild paravalvular mitral insufficiency as well as mild mitral stenosis. He is referred now for further evaluation. The patient is examined today, notes no cardiac complaints. Notes no worsening shortness of breath. Notes no dizziness, lightheadedness, syncope or near syncope. Notes he has had multiple ongoing issues and medical problems over the past several years, which he is fully aware. ALLERGIES: None. MEDICATIONS: Prior to hospitalization were acetazolamide 250 mg b.i.d., aspirin 81 mg per day, calcium acetate 667 mg with meals, carvedilol 12.5 mg b.i.d., cholecalciferol 1000 units daily, citalopram 10 mg 2 tablets daily, digoxin 0.125 mg Monday, Monday and Monday, omega-3 fish oil, folic acid supplements, furosemide 80 mg p.o. daily, Lantus and Humalog insulin, lisinopril 2.5 mg p.o. daily, meclizine p.r.n. vertigo, melatonin p.r.n. sleep, multivitamin 1 tablet per day, omeprazole 20 mg p.o. daily, calcium 500 mg p.o. daily, ranolazine 500 mg p.o. b.i.d., warfarin 3 mg p.o. daily, zinc 50 mg b.i.d. PAST SURGICAL HISTORY: Multiple including radical prostatectomy in 2001, cardiac surgery as described, aortic valve and mitral valve replacement and coronary artery bypass grafting x5 in 2008. Past peripheral vascular interventions and surgical debridement as well as left great toe amputation in 2010, right great toe amputation in 2011 as well as metatarsal amputation in 2011, multiple tunneled catheter and peritoneal dialysis catheter revisions. He has undergone prior percutaneous attempted arterial revascularization of the lower extremity on 08/03/2016 with distal access unable to be obtained due to diffuse disease. FAMILY HISTORY: Notable for heart disease. SOCIAL HISTORY: The patient is a nonsmoker, nondrinker. PHYSICAL EXAMINATION: VITAL SIGNS: Heart rate 70, blood pressure is 107/58. HEENT: Normocephalic and atraumatic. NECK: Thin. There is no jugular venous distention. LUNGS: Reveal good aeration to the bases. CARDIOVASCULAR: Regular with a 2-3/6 systolic murmur. There is no diastolic murmur audible. ABDOMEN: Soft. EXTREMITIES: Reveal bandaged lower extremities. There is no edema. LABORATORY DATA: White cell count is 15.8, hemoglobin is 8.9. Sodium is 143, potassium is 3.2, chloride is 105, bicarb is 28, BUN is 38, creatinine is 4.4. Echocardiogram as per HPI demonstrates potential vegetation on the bioprosthetic mitral valve, small perivalvular degree of mitral insufficiency. IMPRESSION: A very complex 76-year-old male who is admitted with osteomyelitis and Achilles tendon rupture in the setting of known vascular disease and recurrent lower extremity infections, who is now growing methicillin-sensitive Staph aureus. Blood cultures were drawn after antibiotics started. There is no blood culture growth to suggest ongoing bacteremia. Echocardiogram however is not sufficient to exclude valvular vegetation. RECOMMENDATIONS: I have discussed the findings in detail with the patient and noted a transesophageal echocardiogram will be more sensitive at defining valvular disease and excluding or confirming valvular vegetation. I have also directly discussed the indications for findings and noting that evidence of vegetation would result in need for an extended antibiotic therapy which already is warranted by current peripheral vascular issues and osteomyelitis. Also noted if there are signs or symptoms of valvular vegetation and valve dysfunction or deterioration, would be an indication for consideration for valve replacement. After discussion, the patient notes he would not consider valve replacement or further more aggressive interventions and would optimally like to manage this conservatively with antibiotic therapies "and to let things take their course." After discussion, we will plan on repeating echocardiogram in 2 days' time. We will meet with family tomorrow to discuss. We will still keep patient n.p.o. after midnight tonight, in case there is change in planning. Overall this appears reasonable, given patient's multiple issues and ongoing gradual decline. The patient feels he is very comfortable with this decision.
--- NOTE | 2016-08-21 15:37 | Progress Note ---
Medicine Progress Note Date & Time of Visit: Aug 21, 2016 at 15:31. Subjective seen resting in bed, comfortable states he feels fine, in good spirits denies dyspnea, chest pain, dizziness denies pain no other symptoms Objective Last 8 Hrs Date Time Temp Pulse Resp B/P Pulse Ox O2 Delivery O2 Flow Rate FiO2 08/21/16 15:18 36.4 48 16 108/55 100 Room Air 08/21/16 11:36 36.6 45 18 107/57 95 Room Air 08/21/16 09:29 36.5 73 18 107/58 08/21/16 07:52 Room Air Physical Exam: Physical Exam: General- oriented x 3, not in distress, speaks in sentences Eyes-anicteric Neck- no JVD Lungs- clearbreath sounds no rales/wheezes b/l Heart-mild bradycardia, regular rhythm; (+) 3/6 murmur Abdomen- normal bowel sounds, soft, nontender Extremities-right lower leg with heavy dressing in place no pretibial edema, no calf tenderness; peripheral pulses intact Neuro- alert, oriented x 3;no gross focal deficits Skin- warm & dry Laboratory Results: Last 24 Hours Test 08/20/16 17:13 08/20/16 20:47 08/21/16 05:52 08/21/16 07:44 Bedside Glucose 120 mg/dl 143 mg/dl 147 mg/dl White Blood Count 15.82 K/uL Red Blood Count 2.81 M/uL Hemoglobin 8.9 g/dL Hematocrit 28.3 % Mean Corpuscular Volume 100.7 fL Mean Corpuscular Hemoglobin 31.7 pg Mean Corpuscular Hemoglobin Concent 31.4 g/dl RDW Standard Deviation 64.0 fL RDW Coefficient of Variation 17.3 % Platelet Count 259 K/uL Mean Platelet Volume 9.4 fL Prothrombin Time 13.0 SECONDS Prothromb Time International Ratio 1.2 Sodium Level 143 mmol/L Potassium Level 3.2 mmol/L Chloride Level 105 mmol/L Carbon Dioxide Level 28 mmol/L Anion Gap 10.0 mmol/L Blood Urea Nitrogen 38 mg/dl Creatinine 4.40 mg/dl Est Creatinine Clear Calc Drug Dose 14.3 ml/min Estimated GFR () 14.1 Estimated GFR (Non- 12.1 BUN/Creatinine Ratio 8.7 Random Glucose 151 mg/dl Calcium Level 8.1 mg/dl Test 08/21/16 11:26 Bedside Glucose 136 mg/dl Assessment & Plan Achilles Tendon Rupture 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, Calcaneus - afebrile - s/p Debridement 08/19/16 - blood cultures :negative wound culture: Staph, MSSA bone culture: Staph echo: possible vegetation on mitral valve leaflet - on Dapto + Zosyn--> changed to Cefazolin Day 4 will need at least 6 weeks antibiotics via PICC line, Cefazolin IV if going to SNF, Ceftriaxone 2g IV daily if going home blood cultures drawn after antibiotics started consulted Linotyper--> discussed with patient, defer HUMBLE for now as patient will be completing 6 weeks of antibiotics already, would not want any valve replacement if needed ID consulted, appreciate the consult Ortho consulted, appreciate the recommendations CAD s/p CABG -stable - hold Lisinopril for marginal BP - on Aspirin Atrial fibrillation - SR, HR controlled - continue Coreg and Digoxin - coumadin held for surgery, given vitamin k INR 1.2 coumadin resumed s/p mitral and aortic valve replacements (Bioprosthetic) - coumadin held for surgery, given vitamin k INR 1.2 continue coumadin echo: possible vegetation on mitral valve leaflet management per #1 Chronic systolic heart failure - 08/20/16: lasix held, IV fluids given - hold Lasix today monitor volume status tomorrow Anemia-likely multifactorial but 2/2 mainly to ESRD - on Procrit. - given 2 units PRBC Hg stable at ~9 monitor ESRD on peritoneal dialysis -consulted Nephrology Severe PAD-s/p recent vascular intervention last week s/p 3 stents placed. DM II -ISS/Lantus, glycemic pharmacy consult placed History of Prostate Cancer Depression-cont Celexa DVT prop - on coumadin - heparin while INR subtherapeutic FULL CODE Dispo will likely need SNF Current Inpatient Medications: Current Inpatient Medications Medications (Trade) Dose Ordered Sig/Andrei Route Start Time Stop Time Status Last Admin Dose Admin Acetaminophen (Tylenol Tab) 650 mg Q4H PRN PO 08/15/16 00:15 09/14/16 00:14 Polyethylene (Miralax Powder Packet) 17 gm DAILY PRN PO 08/15/16 00:15 09/14/16 00:14 08/18/16 09:03 17 GM Ondansetron HCl (Zofran Inj) 4 mg Q6H PRN IV 08/15/16 00:15 09/14/16 00:14 Glucose (Glucose 40% Gel) 15-30 GRAMS 15 GRAMS... UD PRN PO 08/15/16 00:15 09/14/16 00:14 Glucose (Glucose Chew Tab) 4-8 Tablets 4 Tabl... UD PRN PO 08/15/16 00:15 09/14/16 00:14 Dextrose (Dextrose 50% 50ML Syringe) 25-50ML OF 50% DW IV FOR... UD PRN IV 08/15/16 00:15 09/14/16 00:14 Glucagon (Glucagon Inj) 1 mg UD PRN SQ 08/15/16 00:15 09/14/16 00:14 Miscellaneous Information (Consult Glycemic Management Pharmacy) 1 ea DAILY PRN N/A 08/15/16 02:18 09/14/16 02:17 Acetazolamide (Diamox Tab) 250 mg BID PO 08/15/16 09:00 09/14/16 08:59 08/21/16 08:52 250 MG Calcium Acetate (Phoslo Cap) 667 mg AC PO 08/15/16 08:00 09/14/16 07:59 08/21/16 12:45 667 MG Carvedilol (Coreg Tab) 12.5 mg BID PO 08/15/16 09:00 09/14/16 08:59 08/21/16 08:50 12.5 MG Digoxin (Lanoxin Tab) 0.125 mg DAILY@1600 PO 08/15/16 16:00 09/14/16 15:59 08/18/16 20:04 0.125 MG Fish Oil ([place]-3 (Purified Fish Oil) Cap) 1 gm DAILY PO 08/15/16 09:00 09/14/16 08:59 08/21/16 08:52 1 GM Folic Acid (Folvite Tab) 1 mg DAILY PO 08/15/16 09:00 09/14/16 08:59 08/21/16 08:51 1 MG Multivitamins (Multivitamin Tab) 1 tab DAILY PO 08/15/16 09:00 09/14/16 08:59 08/21/16 08:51 1 TAB Ranolazine (Ranexa ER Tab) 500 mg BID PO 08/15/16 09:00 09/14/16 08:59 08/21/16 08:52 500 MG Cholecalciferol (Vitamin D Tab) 1,000 inter.unit QAM PO 08/15/16 09:00 09/14/16 08:59 08/21/16 08:51 1,000 INTER.UNIT Citalopram Hydrobromide (celeXA TAB) 20 mg QAM PO 08/15/16 09:00 09/14/16 08:59 08/21/16 08:51 20 MG Pantoprazole Sodium (Protonix Tab) 40 mg QAM PO 08/15/16 09:00 09/14/16 08:59 08/21/16 08:51 40 MG Morphine Sulfate (MoRPHine SULFATE INJ) 2 mg Q6H PRN IV 08/15/16 15:45 08/29/16 15:44 Tramadol HCl (Ultram Tab) 50 mg Q6H PRN PO 08/15/16 15:45 09/14/16 15:44 Miscellaneous Information 1 ea 1 ea UD PRN N/A 08/17/16 11:15 09/16/16 11:14 Cefazolin Sodium/ Dextrose (Ancef Iv/D5 50ml) 52.5 ml @ 105 mls/hr Q12 IV 08/17/16 21:00 09/28/16 20:59 08/21/16 09:20 105 MLS/HR Insulin Glargine (Lantus Solostar Pen) SEE PROTOCOL DAILY SC 08/18/16 09:00 09/17/16 08:59 Future hold 08/21/16 08:59 20 UNIT Insulin Aspart (novoLOG ASPART) SLIDING SCALE If C... ACHS SC 08/20/16 08:00 09/19/16 07:59 08/21/16 08:58 5 UNITS Warfarin Sodium (Coumadin Tab) 3 mg DAILY@16 PO 08/20/16 17:00 09/19/16 16:59 08/20/16 17:29 3 MG
[2016-08-21] MEDS: DIGOXIN 0.125 MG TAB PO SCH (16:00)
[2016-08-21] MEDS: WARFARIN SOD 3 MG TAB PO SCH (16:14)
[2016-08-21] MEDS: HEPARIN SOD 5000 UNIT/0.5 ML CARP SQ SCH (21:24)
[2016-08-22] VITALS (11 sets, daily range): BP systolic 99–134; BP diastolic 46–73; PULSE 58–93; TEMP 36.6–37.2; O2SAT 98–100
[2016-08-22 06:13] LABS: MEAN CORPUSCULAR HEMOGLOBIN 31.4 pg (25-34); MEAN CORPUSCULAR HGB CONC 31.7 g/dl (32-36); MEAN PLATELET VOLUME 9.1 fL (7.4-10.4); PLATELET COUNT 291 K/uL (130-400); RED BLOOD COUNT 2.93 M/uL (4.7-6.1); WHITE BLOOD COUNT 15.72 K/uL (4.8-10.8)
[2016-08-22 06:19] LABS: INR 1.2 (0.9-1.1); PROTHROMBIN TIME (PATIENT) 13.4 SECONDS (9.0-12.0)
[2016-08-22 06:39] LABS: BUN/CREATININE RATIO 8.9 (10-20); CALCIUM 8.2 mg/dl (8.5-10.1); CREATININE 4.3 mg/dl (0.60-1.40); POTASSIUM 3.1 mmol/L (3.5-5.1)
[2016-08-22] MEDS: CALCIUM ACETATE 667MG GELCAP PO SCH ×3 (08:00→17:58)
[2016-08-22] MEDS: CITALOPRAM 20 MG TAB PO SCH (08:23)
[2016-08-22] MEDS: CARVEDILOL 12.5 MG TAB PO SCH (08:26)
[2016-08-22] MEDS: OMEGA-3 (PURIFIED FISH OIL) 1 GM CAP PO SCH (08:28)
[2016-08-22] MEDS: MULTIVITAMIN TAB PO SCH (08:28)
[2016-08-22] MEDS: CHOLECALCIFEROL 1000 INTER.UNIT TAB PO SCH (08:29)
[2016-08-22] MEDS: PANTOprazole SOD 40 MG TAB PO SCH (08:29)
[2016-08-22] MEDS: RANOLAZINE 500 MG ER TAB PO SCH ×2 (08:29→20:50)
[2016-08-22] MEDS: AcetaZOLAMIDE 250 MG TAB PO SCH ×2 (08:30→20:50)
[2016-08-22] MEDS: INSULIN ASPART 100 UNITS/ML 3 ML PEN SC SCH ×4 (08:35→20:17)
[2016-08-22] MEDS: INSULIN GLARGINE SOLOSTAR 100 UNITS/ML 3 ML PEN SC SCH (08:36)
[2016-08-22] MEDS: HEPARIN SOD 5000 UNIT/0.5 ML CARP SQ SCH ×2 (08:36→21:05)
[2016-08-22] MEDS: CEFAZOLIN IV 500 MG in DEXTROSE 5% 50ML 50 ML IV SCH (08:46)
--- NOTE | 2016-08-22 09:22 | Anesthesiology Progress Note ---
Anesthesia Post Op Note Date & Time Aug 22, 2016 at 09:22 Vital Signs Pain Intensity: 0.0 Vital Signs Past 12 Hours Date Time Temp Pulse Resp B/P Pulse Ox O2 Delivery O2 Flow Rate FiO2 08/22/16 08:25 91 117/66 08/22/16 07:48 36.6 87 14 120/68 98 Room Air 08/22/16 03:14 36.7 87 18 119/68 100 Room Air 08/22/16 00:00 Room Air 08/21/16 23:02 36.9 57 18 95/46 97 Room Air Notes Mental Status: alert / awake / arousable, participated in evaluation Pt Amnestic to Procedure: Yes Nausea / Vomiting: adequately controlled Pain: adequately controlled Airway Patency, RR, SpO2: stable & adequate BP & HR: stable & adequate Hydration State: stable & adequate Anesthetic Complications: no major complications apparent
--- NOTE | 2016-08-22 09:24 | Nephrology Progress Note ---
Nephrology Progress Note Date of Service: Aug 22, 2016. 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 tolerating pd. volume status appropriately. Objective Date Time Temp Pulse Resp B/P Pulse Ox O2 Delivery O2 Flow Rate FiO2 08/22/16 08:25 91 117/66 08/22/16 07:48 36.6 87 14 120/68 98 Room Air 08/22/16 03:14 36.7 87 18 119/68 100 Room Air 08/22/16 00:00 Room Air 08/21/16 23:02 36.9 57 18 95/46 97 Room Air 08/21/16 20:13 36.4 62 108/55 08/21/16 16:30 100 Room Air 08/21/16 16:00 48 08/21/16 15:18 36.4 48 16 108/55 100 Room Air 08/21/16 11:36 36.6 45 18 107/57 95 Room Air 08/21/16 09:29 36.5 73 18 107/58 Physical Exam: General-aaox3 Eyes-no scleral icterus ENT-mmm Neck-supple Lungs-basilar rales Heart-rrr Abdomen-pd catheter in place, soft, nontender Extremities-right heel ulcer-wrapped Neuro-nonfocal Current Inpatient Medications Medications (Trade) Dose Ordered Sig/Andrei Route Start Time Stop Time Status Last Admin Dose Admin Acetaminophen (Tylenol Tab) 650 mg Q4H PRN PO 08/15/16 00:15 09/14/16 00:14 Polyethylene (Miralax Powder Packet) 17 gm DAILY PRN PO 08/15/16 00:15 09/14/16 00:14 08/18/16 09:03 17 GM Ondansetron HCl (Zofran Inj) 4 mg Q6H PRN IV 08/15/16 00:15 09/14/16 00:14 Glucose (Glucose 40% Gel) 15-30 GRAMS 15 GRAMS... UD PRN PO 08/15/16 00:15 09/14/16 00:14 Glucose (Glucose Chew Tab) 4-8 Tablets 4 Tabl... UD PRN PO 08/15/16 00:15 09/14/16 00:14 Dextrose (Dextrose 50% 50ML Syringe) 25-50ML OF 50% DW IV FOR... UD PRN IV 08/15/16 00:15 09/14/16 00:14 Glucagon (Glucagon Inj) 1 mg UD PRN SQ 08/15/16 00:15 09/14/16 00:14 Miscellaneous Information (Consult Glycemic Management Pharmacy) 1 ea DAILY PRN N/A 08/15/16 02:18 09/14/16 02:17 Acetazolamide (Diamox Tab) 250 mg BID PO 08/15/16 09:00 09/14/16 08:59 08/22/16 08:30 250 MG Calcium Acetate (Phoslo Cap) 667 mg AC PO 08/15/16 08:00 09/14/16 07:59 08/21/16 17:44 667 MG Carvedilol (Coreg Tab) 12.5 mg BID PO 08/15/16 09:00 09/14/16 08:59 08/22/16 08:26 12.5 MG Digoxin (Lanoxin Tab) 0.125 mg DAILY@1600 PO 08/15/16 16:00 09/14/16 15:59 08/18/16 20:04 0.125 MG Fish Oil ([place]-3 (Purified Fish Oil) Cap) 1 gm DAILY PO 08/15/16 09:00 09/14/16 08:59 08/22/16 08:28 1 GM Folic Acid (Folvite Tab) 1 mg DAILY PO 08/15/16 09:00 09/14/16 08:59 08/22/16 08:27 1 MG Multivitamins (Multivitamin Tab) 1 tab DAILY PO 08/15/16 09:00 09/14/16 08:59 08/22/16 08:28 1 TAB Ranolazine (Ranexa ER Tab) 500 mg BID PO 08/15/16 09:00 09/14/16 08:59 08/22/16 08:29 500 MG Cholecalciferol (Vitamin D Tab) 1,000 inter.unit QAM PO 08/15/16 09:00 09/14/16 08:59 08/22/16 08:29 1,000 INTER.UNIT Citalopram Hydrobromide (celeXA TAB) 20 mg QAM PO 08/15/16 09:00 09/14/16 08:59 08/22/16 08:23 20 MG Pantoprazole Sodium (Protonix Tab) 40 mg QAM PO 08/15/16 09:00 09/14/16 08:59 08/22/16 08:29 40 MG Morphine Sulfate (MoRPHine SULFATE INJ) 2 mg Q6H PRN IV 08/15/16 15:45 08/29/16 15:44 Tramadol HCl (Ultram Tab) 50 mg Q6H PRN PO 08/15/16 15:45 09/14/16 15:44 Miscellaneous Information 1 ea 1 ea UD PRN N/A 08/17/16 11:15 09/16/16 11:14 Cefazolin Sodium/ Dextrose (Ancef Iv/D5 50ml) 52.5 ml @ 105 mls/hr Q12 IV 08/17/16 21:00 09/28/16 20:59 08/22/16 08:46 105 MLS/HR Insulin Glargine (Lantus Solostar Pen) SEE PROTOCOL DAILY SC 08/18/16 09:00 09/17/16 08:59 Future hold 08/22/16 08:36 20 UNIT Insulin Aspart (novoLOG ASPART) SLIDING SCALE If C... ACHS SC 08/20/16 08:00 09/19/16 07:59 08/22/16 08:35 2 UNITS Warfarin Sodium (Coumadin Tab) 3 mg DAILY@16 PO 08/20/16 17:00 09/19/16 16:59 08/21/16 16:14 3 MG Heparin Sodium (Porcine) (Heparin Sq 5000 Unit/0.5ml) 5,000 unit Q12 SQ 08/21/16 21:00 09/20/16 20:59 08/22/16 08:36 5,000 UNIT Last 24 Hours Test 08/21/16 11:26 08/21/16 16:32 08/21/16 20:35 08/22/16 05:51 Bedside Glucose 136 mg/dl 93 mg/dl 186 mg/dl White Blood Count 15.72 K/uL Red Blood Count 2.93 M/uL Hemoglobin 9.2 g/dL Hematocrit 29.0 % Mean Corpuscular Volume 99.0 fL Mean Corpuscular Hemoglobin 31.4 pg Mean Corpuscular Hemoglobin Concent 31.7 g/dl RDW Standard Deviation 62.6 fL RDW Coefficient of Variation 17.2 % Platelet Count 291 K/uL Mean Platelet Volume 9.1 fL Prothrombin Time 13.4 SECONDS Prothromb Time International Ratio 1.2 Sodium Level 140 mmol/L Potassium Level 3.1 mmol/L Chloride Level 102 mmol/L Carbon Dioxide Level 25 mmol/L Anion Gap 13.0 mmol/L Blood Urea Nitrogen 38 mg/dl Creatinine 4.30 mg/dl Est Creatinine Clear Calc Drug Dose 14.6 ml/min Estimated GFR () 14.5 Estimated GFR (Non- 12.5 BUN/Creatinine Ratio 8.9 Random Glucose 144 mg/dl Calcium Level 8.2 mg/dl Test 08/22/16 07:35 Bedside Glucose 141 mg/dl Assessment & Plan ESRD-volume status appropriate. does have rales at left base but laying flat and not sob and not requiring oxygen. will continue current pd rx. Anemia of renal failure-continue procrit to keep hg levels between 10 and 11. will redose again today. VERO: phos of 3, continue phoslo and vitamin d.
[2016-08-22] MEDS ORDERED: EPOETIN ALFA 10,000 UNITS/ML VIAL SQ SCH (11:00)
[2016-08-22] MEDS ORDERED: VANCOMYCIN CONSULT ACTIVE PRN (12:15)
--- NOTE | 2016-08-22 12:28 | Infectious Disease Progress Nt ---
Progress Note Date of Service Aug 22, 2016. Subjective Pt evaluation today including: conversation w/ patient, conversation w/ family (), physical exam, chart review, lab review, review of studies, conversation w/ business travel consultant (Dr. Huber, Dr. Moya), review of inpatient medication list Patient is now s/p debridement of the right heel. I reviewed the operative record and noted extensive debridement of the skin, soft tissues, bone, and Achilles tendon. Operative cultures growing MSSA, coag negative staph, and Strep species. Patient is on IV Ancef. He is tolerating this well. He is considering rehab after admission for strengthening. Blood cultures continued to show NGTD. Echo noted to show possible MV vegetation. Confirmed this finding with Dr. Huber. 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 All Other Systems: Reviewed and Negative Medications Current Inpatient Medications Medications (Trade) Dose Ordered Sig/Andrei Route Start Time Stop Time Status Last Admin Dose Admin Acetaminophen (Tylenol Tab) 650 mg Q4H PRN PO 08/15/16 00:15 09/14/16 00:14 Polyethylene (Miralax Powder Packet) 17 gm DAILY PRN PO 08/15/16 00:15 09/14/16 00:14 08/18/16 09:03 17 GM Ondansetron HCl (Zofran Inj) 4 mg Q6H PRN IV 08/15/16 00:15 09/14/16 00:14 Glucose (Glucose 40% Gel) 15-30 GRAMS 15 GRAMS... UD PRN PO 08/15/16 00:15 09/14/16 00:14 Glucose (Glucose Chew Tab) 4-8 Tablets 4 Tabl... UD PRN PO 08/15/16 00:15 09/14/16 00:14 Dextrose (Dextrose 50% 50ML Syringe) 25-50ML OF 50% DW IV FOR... UD PRN IV 08/15/16 00:15 09/14/16 00:14 Glucagon (Glucagon Inj) 1 mg UD PRN SQ 08/15/16 00:15 09/14/16 00:14 Miscellaneous Information (Consult Glycemic Management Pharmacy) 1 ea DAILY PRN N/A 08/15/16 02:18 09/14/16 02:17 Acetazolamide (Diamox Tab) 250 mg BID PO 08/15/16 09:00 09/14/16 08:59 08/22/16 08:30 250 MG Calcium Acetate (Phoslo Cap) 667 mg AC PO 08/15/16 08:00 09/14/16 07:59 08/22/16 12:17 667 MG Carvedilol (Coreg Tab) 12.5 mg BID PO 08/15/16 09:00 09/14/16 08:59 08/22/16 08:26 12.5 MG Digoxin (Lanoxin Tab) 0.125 mg DAILY@1600 PO 08/15/16 16:00 09/14/16 15:59 08/18/16 20:04 0.125 MG Fish Oil ([place]-3 (Purified Fish Oil) Cap) 1 gm DAILY PO 08/15/16 09:00 09/14/16 08:59 08/22/16 08:28 1 GM Folic Acid (Folvite Tab) 1 mg DAILY PO 08/15/16 09:00 09/14/16 08:59 08/22/16 08:27 1 MG Multivitamins (Multivitamin Tab) 1 tab DAILY PO 08/15/16 09:00 09/14/16 08:59 08/22/16 08:28 1 TAB Ranolazine (Ranexa ER Tab) 500 mg BID PO 08/15/16 09:00 09/14/16 08:59 08/22/16 08:29 500 MG Cholecalciferol (Vitamin D Tab) 1,000 inter.unit QAM PO 08/15/16 09:00 09/14/16 08:59 08/22/16 08:29 1,000 INTER.UNIT Citalopram Hydrobromide (celeXA TAB) 20 mg QAM PO 08/15/16 09:00 09/14/16 08:59 08/22/16 08:23 20 MG Pantoprazole Sodium (Protonix Tab) 40 mg QAM PO 08/15/16 09:00 09/14/16 08:59 08/22/16 08:29 40 MG Morphine Sulfate (MoRPHine SULFATE INJ) 2 mg Q6H PRN IV 08/15/16 15:45 08/29/16 15:44 Tramadol HCl (Ultram Tab) 50 mg Q6H PRN PO 08/15/16 15:45 09/14/16 15:44 Insulin Glargine (Lantus Solostar Pen) SEE PROTOCOL DAILY SC 08/18/16 09:00 09/17/16 08:59 Future hold 08/22/16 08:36 20 UNIT Insulin Aspart (novoLOG ASPART) SLIDING SCALE If C... ACHS SC 08/20/16 08:00 09/19/16 07:59 08/22/16 08:35 2 UNITS Warfarin Sodium (Coumadin Tab) 3 mg DAILY@16 PO 08/20/16 17:00 09/19/16 16:59 08/21/16 16:14 3 MG Heparin Sodium (Porcine) (Heparin Sq 5000 Unit/0.5ml) 5,000 unit Q12 SQ 08/21/16 21:00 09/20/16 20:59 08/22/16 08:36 5,000 [place] [address] units 10,000 units TODAY@1100 SQ 08/22/16 11:00 08/22/16 23:59 08/22/16 12:05 10,000 UNITS Vancomycin HCl/ Sodium Chloride (Vancomycin Inj/ Nss 500ml) 534 ml @ 200 mls/hr NOW ONCE IV 08/22/16 12:30 08/22/16 15:10 Vancomycin HCl (Consult) 1 ea UD PRN N/A 08/22/16 12:15 09/21/16 12:14 Objective Vital Signs Date Time Temp Pulse Resp B/P Pulse Ox O2 Delivery O2 Flow Rate FiO2 08/22/16 11:01 37.0 93 18 134/73 08/22/16 09:57 98 Room Air 08/22/16 08:25 91 117/66 08/22/16 08:15 98 Room Air 08/22/16 07:48 36.6 87 14 120/68 98 Room Air 08/22/16 03:14 36.7 87 18 119/68 100 Room Air 08/22/16 00:00 Room Air 08/21/16 23:02 36.9 57 18 95/46 97 Room Air 08/21/16 20:13 36.4 62 108/55 08/21/16 16:30 100 Room Air 08/21/16 16:00 48 08/21/16 15:18 36.4 48 16 108/55 100 Room Air Physical Exam General Appearance: WD/WN, no apparent distress Eyes: normal inspection, sclerae normal ENT: hearing grossly normal Neck: supple, trachea midline Respiratory/Chest: no respiratory distress, no accessory muscle use Cardiovascular: regular rate, rhythm Extremities: + pertinent finding (dressing on right lower extremity) Neurologic/Psychiatric: alert, normal mood/affect Skin: normal color, warm/dry, no rash Laboratory Results RUN DATE: 08/22/16 [facility] PAGE 1 RUN TIME: 1152 Specimen Inquiry PATIENT: SAM JONES LOC: ELISA U # : [id number] AGE/SX: 76/M ROOM: [facility] REG : 08/15/[address]: Marco A Moya MD : 1940 BED: 1 DIS : STATUS: ADM IN TLOC: SPEC #: [id number] MYRTLE: 08/19/16-UNK STATUS: RES REQ #: [id number] RECD: 08/19/16-[address]: Marco A Moya MD SOURCE: ULCER ENTR: 08/19/[address]: Shruthi Whitaker MD [facility]: FOOT RIGHT Onur Blandon D.O. Bell, Evan T MD Sumner, Sabrina M., DO Westrick, Diann, M.D. ORDERED: AER/WILL CULTSMR COMMENTS: CULTURE #1 RIGHT HEEL ULCER Procedure Result Verified Site GRAM STAIN Final 08/20/16 RESULT RARE WBCs SEEN RARE GRAM POSITIVE COCCI OR AER/WILL CULT Preliminary 08/22/16-1151 Organism 1 STAPHYLOCOCCUS AUREUS QUANITY FEW SENS SENSITIVITY TO FOLLOW ANAS NO ANAEROBES ISOLATED. +MIXWOUND PLUS LOW COUNTS OF PROBABLE SKIN JIM Organism 2 STREPTOCOCCUS SPECIES QUANITY RARE SENS SENSITIVITY TO FOLLOW Organism 3 CORYNEBACTERIUM SPECIES QUANITY FEW SENS NO SENSITIVITY TO FOLLOW 1. STAPHYLOCOCCUS AUREUS Target Route Dose RX AB Cost M.I.C. IQ ------ ----- ------ -- ------ -------- - ------ TRIMET/SULFA S <=0.5/ 9.5 * OXACILLIN S 0.5 VANCOMYCIN S 2 ERYTHROMYCIN S <=0.5 TETRACYCLINE S <=4 CLINDAMYCIN S <=0.5 DAPTOMYCIN S <=0.5 S = SENSITIVE I = INTERMEDIATE R = RESISTANT Item Value Date Time Gram Stain - Final Resulted 08/19/16 0000 Ulcer Foot Right Gram Stain - Final Resulted 08/19/16 0000 Bone Heel , Right Blood Culture - Final Complete 08/16/16 1125 Blood NO GROWTH Blood Culture - Final Complete 08/16/16 1125 Blood NO GROWTH Gram Stain - Final Complete 08/15/16 0215 Tissue Heel , Right Gram Stain - Final Complete 08/15/16 0215 Skin Heel , Right Last 24 Hours Test 08/21/16 16:32 08/21/16 20:35 08/22/16 05:51 08/22/16 07:35 Bedside Glucose 93 mg/dl 186 mg/dl 141 mg/dl White Blood Count 15.72 K/uL Red Blood Count 2.93 M/uL Hemoglobin 9.2 g/dL Hematocrit 29.0 % Mean Corpuscular Volume 99.0 fL Mean Corpuscular Hemoglobin 31.4 pg Mean Corpuscular Hemoglobin Concent 31.7 g/dl RDW Standard Deviation 62.6 fL RDW Coefficient of Variation 17.2 % Platelet Count 291 K/uL Mean Platelet Volume 9.1 fL Prothrombin Time 13.4 SECONDS Prothromb Time International Ratio 1.2 Sodium Level 140 mmol/L Potassium Level 3.1 mmol/L Chloride Level 102 mmol/L Carbon Dioxide Level 25 mmol/L Anion Gap 13.0 mmol/L Blood Urea Nitrogen 38 mg/dl Creatinine 4.30 mg/dl Est Creatinine Clear Calc Drug Dose 14.6 ml/min Estimated GFR () 14.5 Estimated GFR (Non- 12.5 BUN/Creatinine Ratio 8.9 Random Glucose 144 mg/dl Calcium Level 8.2 mg/dl Test 08/22/16 11:17 Bedside Glucose 103 mg/dl Assessment and Plan Patient with right distal Achilles tendon rupture, overlying wound, and calcaneal osteomyelitis. Currently the patient is on IV Ancef. Blood cultures continue to show NGTD, but echo shows possible MV vegetation. Patient is refusing operative intervention. Surgical cultures also growing strep species. Concern for Enterococcus. Will change to IV Vancomycin pending culture results. Patient will need a PICC line. He will need at least 6 weeks of IV abx therapy. Will adjust abx when culture is available. Planning rehab for discharge. We will follow. Case reviewed and agree with above assessment.
[2016-08-22] MEDS ORDERED: VANCOMYCIN INJ 1,700 MG in SODIUM CHLORIDE 0.9% 500ML 500 ML IV ONE (12:30)
--- NOTE | 2016-08-22 12:54 | Orthopedic Progress Note ---
Orthopedic Progress Note Date of Service Aug 22, 2016. Subjective Post OP Day: 3 Reports: pain controlled w PO medications (No pain in the right heel since surgery.), Denies: complaints Objective calves soft nontender, capillary refill less than 2 sec., A&O x3 Patient sitting up in bed with lunch. Very pleasant. Family present. Right heel: No erythema noted. No active drainage or bleeding. Ulceration is stable. Some antibiotic beads extruding through the wound. Dressing changed and adaptic gauze used with gauze, ABD, Kerlix wrap and IRENE bandage. Date Time Temp Pulse Resp B/P Pulse Ox O2 Delivery O2 Flow Rate FiO2 08/22/16 11:01 37.0 93 18 134/73 08/22/16 09:57 98 Room Air 08/22/16 08:25 91 117/66 08/22/16 08:15 98 Room Air 08/22/16 07:48 36.6 87 14 120/68 98 Room Air 08/22/16 03:14 36.7 87 18 119/68 100 Room Air 08/22/16 00:00 Room Air 08/21/16 23:02 36.9 57 18 95/46 97 Room Air 08/21/16 20:13 36.4 62 108/55 08/21/16 16:30 100 Room Air 08/21/16 16:00 48 08/21/16 15:18 36.4 48 16 108/55 100 Room Air Laboratory Results 24 Hours: Test 08/22/16 05:51 Hematocrit 29.0 % Hemoglobin 9.2 g/dL Prothromb Time International Ratio 1.2 Prothrombin Time 13.4 SECONDS Additional Notes: GRAM STAIN Final 08/20/16-713 RESULT RARE WBCs SEEN RARE GRAM POSITIVE COCCI OR AER/WILL CULT Preliminary 08/22/16-1151 Organism 1 STAPHYLOCOCCUS AUREUS QUANITY FEW SENS SENSITIVITY TO FOLLOW ANAS NO ANAEROBES ISOLATED. +MIXWOUND PLUS LOW COUNTS OF PROBABLE SKIN IJM Organism 2 STREPTOCOCCUS SPECIES QUANITY RARE SENS SENSITIVITY TO FOLLOW Organism 3 CORYNEBACTERIUM SPECIES QUANITY FEW SENS NO SENSITIVITY TO FOLLOW 1. STAPHYLOCOCCUS AUREUS Target Route Dose RX AB Cost M.I.C. IQ ------ ----- ------ -- ------ -------- - ------ TRIMET/SULFA S <=0.5/ 9.5 * OXACILLIN S 0.5 VANCOMYCIN S 2 ERYTHROMYCIN S <=0.5 TETRACYCLINE S <=4 CLINDAMYCIN S <=0.5 DAPTOMYCIN S <=0.5 S = SENSITIVE I = INTERMEDIATE R = RESISTANT Assessment & Plan Assessment: POD #3 Irrigation and debridment right posterior heel necrotic diabetic wound, debridement right posterior necrotic calcaneal bone, debridement Achilles tendon, Excision avulsion fracture posterior calcaneus, debridement skin and fascia posterior heel, implantation antibiotic laden stimulan beads . Patricia sensitive Staph Aureus growing, Strep, and corynebacterium Anemia Plan: Will continue to monitor for dressing changes. No further surgical tx at this time if the wound continues to have same appearance. PICC line will need to be placed per ID. Pt will possibly need a delayed repair of the Achilles Tendon if the infection can be cleared and soft tissue coverage is possible. Continue to follow for wound care Inhouse Planning Pain Management: Ultram, Morphine DVT Prophylaxis: TEDs, SCDs, Coumadin Discharge Planning Discharge Planning: uncertain
[2016-08-22] MEDS ORDERED: POTASSIUM CHLORIDE 10 MEQ TABCR PO ONE (13:15)
--- NOTE | 2016-08-22 13:19 | Pharmacy Progress Note ---
Pharmacy Antibiotic Consult Date of Service: Aug 22, 2016. Pharmacy Dosing Scope Pharmacy is consulted to initiate vancomycin IV dosing therapy, order appropriate labs and adjust drug dose/frequency. Subjective The patient is a 76 year old male admitted on Aug 15, 2016 at 00:10 with osteomyelitis. He is currently growing MSSA and coag negative staph in his wound cultures. He was previously on Ancef and this is now changed to vancomycin. He receives PD with 5 exchanges overnight every night except typically Monday night. Objective Height (Feet): 5 Height (Inches): 9.00 Weight (Kilograms): 86.300 Lab Results (24hrs): Laboratory Tests Test 08/22/16 05:51 BUN/Creatinine Ratio 8.9 Blood Urea Nitrogen 38 mg/dl Creatinine 4.30 mg/dl White Blood Count 15.72 K/uL Micro Results: RUN DATE: 08/22/16 [facility] LAB PAGE 1 RUN TIME: 1149 Specimen Inquiry PATIENT: SAM JONES LOC: [facility] [employer] U # : [id number] AGE/SX: 76/M ROOM: [facility] REG : 08/15/[address]: Marco A Moya MD : 1940 BED: 1 DIS : STATUS: ADM IN TLOC: SPEC #: [id number] MYRTLE: 08/19/16-UNK STATUS: RES REQ #: [id number] RECD: 08/19/[address] [facility] [address]: Marco A Moya MD SOURCE: BONE ENTR: 08/19/[address] [facility] [address]: Shruthi Whitaker MD SPDESC: Carl HSU Bradley A., Karlie Swanson,Lauren Quinteros MD , Kizzy Padgett M.D. ORDERED: AER/WILL CULTSMR COMMENTS: CULTURE #2 RIGHT CALCANEAL BONE Procedure Result Verified Site GRAM STAIN Final 08/20/16 Test not performed OR AER/WILL CULT Preliminary 08/22/161143 Organism 1 STAPHYLOCOCCUS AUREUS QUANITY FEW SENS SENSITIVITY TO FOLLOW ANAS NO ANAEROBES ISOLATED. Organism 2 COAG NEG STAPHYLOCOCCUS QUANITY RARE SENS HOLDING 5 DAYS PENDING REQUEST FOR FURTHER WORK-UP Organism 3 CORYNEBACTERIUM SPECIES QUANITY RARE SENS NO SENSITIVITY TO FOLLOW 1. STAPHYLOCOCCUS AUREUS Target Route Dose RX AB Cost M.I.C. IQ ------ ----- ------ -- ------ -------- - ------ TRIMET/SULFA S <=0.5/ 9.5 * OXACILLIN S 0.5 VANCOMYCIN S 2 ERYTHROMYCIN S <=0.5 TETRACYCLINE S <=4 CLINDAMYCIN S <=0.5 DAPTOMYCIN S 1 S = SENSITIVE I = INTERMEDIATE R = RESISTANT Assessment & Plan Loading dose: vancomycin 1700 mg (20 mg/kg) IV X 1 dose then: Random level has been ordered for: at 1900. --> patient typically receives PD until 8 or 9 in the morning but this morning it was until 11 am. It will take some time for re-distribution to happen at the dialysis session. Therefore, we will wait until the evening in order to re-dose the vancomycin. Patient has residual kidney function so utilizing caution in dosing. Goal peak level estimate: between 35 - 40 mcg/mL. Goal trough level estimate: between 15 - 20 mcg/mL (indication: osteomyelitis) Pharmacy will continue to follow and will adjust dose/frequency as necessary. Thank you
[2016-08-22] MEDS ORDERED: FUROSEMIDE 80 MG TAB PO ONE (15:00)
--- NOTE | 2016-08-22 15:12 | Progress Note ---
Medicine Progress Note Date & Time of Visit: Aug 22, 2016 at 15:04. Subjective seen with family at bedside somewhat confused occasionally comfortable states he feels alright overall denies dyspnea, chest pain, palpitations, fever/chills no leg pain no other symptoms Objective Last 8 Hrs Date Time Temp Pulse Resp B/P Pulse Ox O2 Delivery O2 Flow Rate FiO2 08/22/16 11:01 37.0 93 18 134/73 08/22/16 09:57 98 Room Air 08/22/16 08:25 91 117/66 08/22/16 08:15 98 Room Air 08/22/16 07:48 36.6 87 14 120/68 98 Room Air Physical Exam: General- oriented x 3, not in distress, speaks in sentences Eyes-anicteric Neck- no JVD Lungs- clear breath sounds no rales/wheezes b/l Heart-mild bradycardia, regular rhythm; (+) 08/22 murmur Abdomen- normal bowel sounds, soft, nontender Extremities-right lower leg with heavy dressing in place no pretibial edema, no calf tenderness; peripheral pulses intact Neuro- alert, oriented x 3;no gross focal deficits Skin- warm & dry Laboratory Results: Last 24 Hours Test 08/21/16 16:32 08/21/16 20:35 08/22/16 05:51 08/22/16 07:35 Bedside Glucose 93 mg/dl 186 mg/dl 141 mg/dl White Blood Count 15.72 K/uL Red Blood Count 2.93 M/uL Hemoglobin 9.2 g/dL Hematocrit 29.0 % Mean Corpuscular Volume 99.0 fL Mean Corpuscular Hemoglobin 31.4 pg Mean Corpuscular Hemoglobin Concent 31.7 g/dl RDW Standard Deviation 62.6 fL RDW Coefficient of Variation 17.2 % Platelet Count 291 K/uL Mean Platelet Volume 9.1 fL Prothrombin Time 13.4 SECONDS Prothromb Time International Ratio 1.2 Sodium Level 140 mmol/L Potassium Level 3.1 mmol/L Chloride Level 102 mmol/L Carbon Dioxide Level 25 mmol/L Anion Gap 13.0 mmol/L Blood Urea Nitrogen 38 mg/dl Creatinine 4.30 mg/dl Est Creatinine Clear Calc Drug Dose 14.6 ml/min Estimated GFR () 14.5 Estimated GFR (Non- 12.5 BUN/Creatinine Ratio 8.9 Random Glucose 144 mg/dl Calcium Level 8.2 mg/dl Test 08/22/16 11:17 Bedside Glucose 103 mg/dl Assessment & Plan Achilles Tendon Rupture 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, Calcaneus - afebrile - s/p Debridement 08/19/16 - blood cultures :negative wound culture: Staph, MSSS bone culture: Staph, Strep echo: possible vegetation on mitral valve leaflet - on Dapto + Zosyn--> changed to Cefazolin Day 5--> changed to Vanco IV due to growth of Strep will need at least 6 weeks antibiotics via PICC line, ID on board, awaiting final recommendations PICC line ordered today - possible mitral valve vegetation on the mitral valve blood cultures drawn after antibiotics started consulted Floor Waxer--> discussed with patient, defer HUMBLE for now as patient will be completing 6 weeks of antibiotics already, would not want any valve replacement if needed repeat echo ordered for tomorrow per Floor Waxer ID consulted, appreciate the consult Ortho consulted, appreciate the recommendations CAD s/p CABG -stable - hold Lisinopril for marginal BP - on Aspirin Atrial fibrillation - in sinus rhythm, HR controlled - continue Coreg and Digoxin - coumadin held for surgery, given vitamin k given INR remains 1.2 after 2 days of Coumadin 3 mg usually takes 3mg coumadin daily increase Coumadin to 5mg daily for now monitor INR s/p mitral and aortic valve replacements (Bioprosthetic) - coumadin held for surgery, given vitamin k given INR remains 1.2 after 2 days of Coumadin 3 mg usually takes 3mg coumadin daily increase Coumadin to 5mg daily for now monitor INR echo: possible vegetation on mitral valve leaflet management per #1 Chronic systolic heart failure - 08/20/16: lasix held, IV fluids given for hypotension - resume usual Lasix 80mg daily monitor volume status Anemia-likely multifactorial but 2/2 mainly to ESRD - on Procrit. - given 2 units PRBC Hg stable at ~9 monitor ESRD on peritoneal dialysis -consulted Nephrology Severe PAD-s/p recent vascular intervention last week s/p 3 stents placed. DM II -ISS/Lantus, glycemic pharmacy consult placed History of Prostate Cancer Depression-cont Celexa DVT prop - on coumadin - heparin while INR subtherapeutic FULL CODE Dispo management of above conditions in progress will likely need Rehab/SNF- [facility] referrals made Current Inpatient Medications: Current Inpatient Medications Medications (Trade) Dose Ordered Sig/Andrei Route Start Time Stop Time Status Last Admin Dose Admin Acetaminophen (Tylenol Tab) 650 mg Q4H PRN PO 08/15/16 00:15 09/14/16 00:14 Polyethylene (Miralax Powder Packet) 17 gm DAILY PRN PO 08/15/16 00:15 09/14/16 00:14 08/18/16 09:03 17 GM Ondansetron HCl (Zofran Inj) 4 mg Q6H PRN IV 08/15/16 00:15 09/14/16 00:14 Glucose (Glucose 40% Gel) 15-30 GRAMS 15 GRAMS... UD PRN PO 08/15/16 00:15 09/14/16 00:14 Glucose (Glucose Chew Tab) 4-8 Tablets 4 Tabl... UD PRN PO 08/15/16 00:15 09/14/16 00:14 Dextrose (Dextrose 50% 50ML Syringe) 25-50ML OF 50% DW IV FOR... UD PRN IV 08/15/16 00:15 09/14/16 00:14 Glucagon (Glucagon Inj) 1 mg UD PRN SQ 08/15/16 00:15 09/14/16 00:14 Miscellaneous Information (Consult Glycemic Management Pharmacy) 1 ea DAILY PRN N/A 08/15/16 02:18 09/14/16 02:17 Acetazolamide (Diamox Tab) 250 mg BID PO 08/15/16 09:00 09/14/16 08:59 08/22/16 08:30 250 MG Calcium Acetate (Phoslo Cap) 667 mg AC PO 08/15/16 08:00 09/14/16 07:59 08/22/16 12:17 667 MG Carvedilol (Coreg Tab) 12.5 mg BID PO 08/15/16 09:00 09/14/16 08:59 08/22/16 08:26 12.5 MG Digoxin (Lanoxin Tab) 0.125 mg DAILY@1600 PO 08/15/16 16:00 09/14/16 15:59 08/18/16 20:04 0.125 MG Fish Oil ([place]-3 (Purified Fish Oil) Cap) 1 gm DAILY PO 08/15/16 09:00 09/14/16 08:59 08/22/16 08:28 1 GM Folic Acid (Folvite Tab) 1 mg DAILY PO 08/15/16 09:00 09/14/16 08:59 08/22/16 08:27 1 MG Multivitamins (Multivitamin Tab) 1 tab DAILY PO 08/15/16 09:00 09/14/16 08:59 08/22/16 08:28 1 TAB Ranolazine (Ranexa ER Tab) 500 mg BID PO 08/15/16 09:00 09/14/16 08:59 08/22/16 08:29 500 MG Cholecalciferol (Vitamin D Tab) 1,000 inter.unit QAM PO 08/15/16 09:00 09/14/16 08:59 08/22/16 08:29 1,000 INTER.UNIT Citalopram Hydrobromide (celeXA TAB) 20 mg QAM PO 08/15/16 09:00 09/14/16 08:59 08/22/16 08:23 20 MG Pantoprazole Sodium (Protonix Tab) 40 mg QAM PO 08/15/16 09:00 09/14/16 08:59 08/22/16 08:29 40 MG Morphine Sulfate (MoRPHine SULFATE INJ) 2 mg Q6H PRN IV 08/15/16 15:45 08/29/16 15:44 Tramadol HCl (Ultram Tab) 50 mg Q6H PRN PO 08/15/16 15:45 09/14/16 15:44 Insulin Glargine (Lantus Solostar Pen) SEE PROTOCOL DAILY SC 08/18/16 09:00 09/17/16 08:59 Future hold 08/22/16 08:36 20 UNIT Insulin Aspart (novoLOG ASPART) SLIDING SCALE If C... ACHS SC 08/20/16 08:00 09/19/16 07:59 08/22/16 08:35 2 UNITS Warfarin Sodium (Coumadin Tab) 3 mg DAILY@16 PO 08/20/16 17:00 09/19/16 16:59 08/21/16 16:14 3 MG Heparin Sodium (Porcine) (Heparin Sq 5000 Unit/0.5ml) 5,000 unit Q12 SQ 08/21/16 21:00 09/20/16 20:59 08/22/16 08:36 5,000 [place] [address] units 10,000 units TODAY@1100 SQ 08/22/16 11:00 08/22/16 23:59 08/22/16 12:05 10,000 UNITS Vancomycin HCl/ Sodium Chloride (Vancomycin Inj/ Nss 500ml) 534 ml @ 200 mls/hr NOW ONCE IV 08/22/16 12:30 08/22/16 15:10 08/22/16 13:02 200 MLS/HR Vancomycin HCl (Consult) 1 ea UD PRN N/A 08/22/16 12:15 09/21/16 12:14 Furosemide (Lasix Tab) 80 mg QAM PO 08/23/16 09:00 09/22/16 08:59 UNV Furosemide (Lasix Tab) 80 mg 1500 ONCE PO 08/22/16 15:00 08/22/16 15:01 UNV
[2016-08-22] MEDS: DIGOXIN 0.125 MG TAB PO SCH (15:44)
[2016-08-22] MEDS: WARFARIN SOD 5 MG TAB PO SCH (16:05)
--- NOTE | 2016-08-22 17:49 | PROGRESS NOTE ---
DATE: 08/22/2016 The patient was seen and examined. Chart and laboratory studies reviewed. SUBJECTIVE: The patient notes no complaints. He did undergo surgical debridement of the foot this morning with good tolerance. Notes no dizziness or lightheadedness. Notes no orthopnea or worsening peripheral edema. OBJECTIVE: VITAL SIGNS: Heart rate is 60, blood pressure is 100/50. NECK: Thin. There is no jugular venous distention. LUNGS: Generally clear. CARDIOVASCULAR: Regular, there is a grade 2-3/6 systolic murmur. There is no diastolic murmur. ABDOMEN: Soft and nontender. EXTREMITIES: Without cyanosis or clubbing. There is no peripheral edema. IMPRESSION: A 76-year-old male, admitted with osteomyelitis in the setting of known history of prior aortic and mitral valve replacement. Echocardiogram questioning possible vegetation. PLAN: I discussed once again in detail with the patient and family would they opt for extended antibiotic therapy given patient's poor surgical risk for valve replacement. They will repeat transthoracic echo if further indications suggest valvular dehiscence or decline. HUMBLE may be warranted to further delineate. In the interim, would continue current medications. Will discontinue digoxin given relative bradycardia and reduce p.m. dose of carvedilol 6.25 mg.
[2016-08-22] MEDS: CARVEDILOL 6.25 MG TAB PO SCH (21:01)
[2016-08-23] VITALS (7 sets, daily range): BP systolic 104–167; BP diastolic 60–79; PULSE 58–90; TEMP 36.5–37; O2SAT 98–99
--- NOTE | 2016-08-23 07:51 | Orthopedic Progress Note ---
Orthopedic Progress Note Date of Service Aug 23, 2016. Subjective Post OP Day: 4 Reports: complaints (Some pain at the medial heel today. Otherwise, he states the right ankle/heel feels good.), feeling well, pain controlled w PO medications Objective calves soft nontender, A&O x3 Right heel: No erythema. Stable ulceration. Some antibiotic beads removed when dressing removed. Mild drainage noted. Difficult to assess increase in purulence vs. serosanguinous drainage mixed with antibiotic beads. Dressing changed today. Date Time Temp Pulse Resp B/P Pulse Ox O2 Delivery O2 Flow Rate FiO2 08/22/16 23:34 37.2 80 126/66 08/22/16 23:30 Room Air 08/22/16 22:59 37.2 80 15 126/66 99 Room Air 08/22/16 20:45 70 116/63 08/22/16 15:44 58 08/22/16 15:41 58 08/22/16 15:30 Room Air 08/22/16 15:27 36.6 64 18 99/46 100 Room Air 08/22/16 11:01 37.0 93 18 134/73 08/22/16 09:57 98 Room Air 08/22/16 08:25 91 117/66 08/22/16 08:15 98 Room Air Laboratory Results 24 Hours: Test 08/23/16 04:44 Assessment & Plan Assessment: POD #4 Irrigation and debridment right posterior heel necrotic diabetic wound, debridement right posterior necrotic calcaneal bone, debridement Achilles tendon, Excision avulsion fracture posterior calcaneus, debridement skin and fascia posterior heel, implantation antibiotic laden stimulan beads . Patricia sensitive Staph Aureus growing, Strep, and corynebacterium Anemia Plan: Will continue to monitor for dressing changes. Will discuss today's drainage with Dr. Blandon to have his opinion. PICC line will need to be placed per ID. Pt will possibly need a delayed repair of the Achilles Tendon if the infection can be cleared and soft tissue coverage is possible. Continue to follow for wound care Inhouse Planning Pain Management: Ultram, Morphine DVT Prophylaxis: TEDs, SCDs, Coumadin Discharge Planning Discharge Planning: uncertain
[2016-08-23] MEDS: INSULIN ASPART 100 UNITS/ML 3 ML PEN SC SCH ×4 (08:00→20:48)
[2016-08-23] MEDS: CALCIUM ACETATE 667MG GELCAP PO SCH ×3 (08:11→17:48)
[2016-08-23] MEDS: PANTOprazole SOD 40 MG TAB PO SCH (08:13)
[2016-08-23] MEDS: CITALOPRAM 20 MG TAB PO SCH (08:13)
[2016-08-23] MEDS: CHOLECALCIFEROL 1000 INTER.UNIT TAB PO SCH (08:14)
[2016-08-23] MEDS: OMEGA-3 (PURIFIED FISH OIL) 1 GM CAP PO SCH (08:15)
[2016-08-23] MEDS: AcetaZOLAMIDE 250 MG TAB PO SCH ×2 (08:16→20:58)
[2016-08-23] MEDS: MULTIVITAMIN TAB PO SCH (08:16)
[2016-08-23] MEDS: RANOLAZINE 500 MG ER TAB PO SCH ×2 (08:17→20:57)
[2016-08-23] MEDS: CARVEDILOL 12.5 MG TAB PO SCH (08:23)
[2016-08-23] MEDS: FUROSEMIDE 80 MG TAB PO SCH (08:24)
[2016-08-23] MEDS: INSULIN GLARGINE SOLOSTAR 100 UNITS/ML 3 ML PEN SC SCH (08:35)
[2016-08-23] MEDS: HEPARIN SOD 5000 UNIT/0.5 ML CARP SQ SCH ×2 (08:36→21:06)
--- NOTE | 2016-08-23 08:49 | Pharmacy Progress Note ---
Glycemic: Assessment & Plan Date of Service Aug 23, 2016. Assessment & Plan Test 08/22/16 11:17 08/22/16 16:59 08/22/16 20:05 08/23/16 04:44 Bedside Glucose 103 mg/dl (70-99) 128 mg/dl (70-99) 122 mg/dl (70-99) Test 08/23/16 07:50 Bedside Glucose 121 mg/dl (70-99) Glycemic control is optimal at this time. BSGs ranging 103 - 144 mg/dl over the past 24hrs. Insulin regimen appears basal heavy, however, low po intake. Lantus on scale based on BSG to prevent hypoglycemia. * Basal insulin: Lantus qAM per scale: 15 units for BSG below 120 mg /dl; 20 units for BSG 120-180 mg/dl; 25 units for BSG above 180 mg/dl * Correctional Insulin: Novolog Correction per scale ACHS Goal Range: Low 110 mg/dL - High 140 mg/dL Correction Factor: 30 mg/dL/unit * Prandial insulin: Per carb ratio of 1 unit per 10 grams CHO consumed BSGs continue to improve, no changes needed to inpatient regimen at this time. Pharmacy will continue to monitor patient daily and write orders per [facility] inpatient glycemic control protocol. Thanks. * Please note that the plan above was derived based on current level of insulin resistance and hospital stress. These recommendations are appropriate for inpatient admission only. Plan of care upon discharge will need to be reassessed to avoid potential outpatient hypo/hyperglycemia.
--- NOTE | 2016-08-23 08:49 | Nephrology Progress Note ---
Nephrology Progress Note Date of Service: Aug 23, 2016. 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 pt is frustrated with his prolonged hospitilization and wants to go home. not hungry this morning. Objective Date Time Temp Pulse Resp B/P Pulse Ox O2 Delivery O2 Flow Rate FiO2 08/23/16 08:22 37.0 71 18 110/67 98 Room Air 08/22/16 23:34 37.2 80 126/66 08/22/16 23:30 Room Air 08/22/16 22:59 37.2 80 15 126/66 99 Room Air 08/22/16 20:45 70 116/63 08/22/16 15:44 58 08/22/16 15:41 58 08/22/16 15:30 Room Air 08/22/16 15:27 36.6 64 18 99/46 100 Room Air 08/22/16 11:01 37.0 93 18 134/73 08/22/16 09:57 98 Room Air Physical Exam: General-aaox3 Eyes-no scleral icterus ENT-mmm Neck-supple Lungs-cta Heart-regular Abdomen-pd catheter in place, soft, nontender Extremities-right heel ulcer-wrapped Neuro-nonfocal Current Inpatient Medications Medications (Trade) Dose Ordered Sig/Andrei Route Start Time Stop Time Status Last Admin Dose Admin Acetaminophen (Tylenol Tab) 650 mg Q4H PRN PO 08/15/16 00:15 09/14/16 00:14 Polyethylene (Miralax Powder Packet) 17 gm DAILY PRN PO 08/15/16 00:15 09/14/16 00:14 08/18/16 09:03 17 GM Ondansetron HCl (Zofran Inj) 4 mg Q6H PRN IV 08/15/16 00:15 09/14/16 00:14 Glucose (Glucose 40% Gel) 15-30 GRAMS 15 GRAMS... UD PRN PO 08/15/16 00:15 09/14/16 00:14 Glucose (Glucose Chew Tab) 4-8 Tablets 4 Tabl... UD PRN PO 08/15/16 00:15 09/14/16 00:14 Dextrose (Dextrose 50% 50ML Syringe) 25-50ML OF 50% DW IV FOR... UD PRN IV 08/15/16 00:15 09/14/16 00:14 Glucagon (Glucagon Inj) 1 mg UD PRN SQ 08/15/16 00:15 09/14/16 00:14 Miscellaneous Information (Consult Glycemic Management Pharmacy) 1 ea DAILY PRN N/A 08/15/16 02:18 09/14/16 02:17 Acetazolamide (Diamox Tab) 250 mg BID PO 08/15/16 09:00 09/14/16 08:59 08/23/16 08:16 250 MG Calcium Acetate (Phoslo Cap) 667 mg AC PO 08/15/16 08:00 09/14/16 07:59 08/23/16 08:11 667 MG Fish Oil ([place]-3 (Purified Fish Oil) Cap) 1 gm DAILY PO 08/15/16 09:00 09/14/16 08:59 08/23/16 08:15 1 GM Folic Acid (Folvite Tab) 1 mg DAILY PO 08/15/16 09:00 09/14/16 08:59 08/23/16 08:36 1 MG Multivitamins (Multivitamin Tab) 1 tab DAILY PO 08/15/16 09:00 09/14/16 08:59 08/23/16 08:16 1 TAB Ranolazine (Ranexa ER Tab) 500 mg BID PO 08/15/16 09:00 09/14/16 08:59 08/23/16 08:17 500 MG Cholecalciferol (Vitamin D Tab) 1,000 inter.unit QAM PO 08/15/16 09:00 09/14/16 08:59 08/23/16 08:14 1,000 INTER.UNIT Citalopram Hydrobromide (celeXA TAB) 20 mg QAM PO 08/15/16 09:00 09/14/16 08:59 08/23/16 08:13 20 MG Pantoprazole Sodium (Protonix Tab) 40 mg QAM PO 08/15/16 09:00 09/14/16 08:59 08/23/16 08:13 40 MG Morphine Sulfate (MoRPHine SULFATE INJ) 2 mg Q6H PRN IV 08/15/16 15:45 08/29/16 15:44 Tramadol HCl (Ultram Tab) 50 mg Q6H PRN PO 08/15/16 15:45 09/14/16 15:44 Insulin Glargine (Lantus Solostar Pen) SEE PROTOCOL DAILY SC 08/18/16 09:00 09/17/16 08:59 Future hold 08/23/16 08:35 20 UNIT Insulin Aspart (novoLOG ASPART) SLIDING SCALE If C... ACHS SC 08/20/16 08:00 09/19/16 07:59 08/22/16 08:35 2 UNITS Heparin Sodium (Porcine) (Heparin Sq 5000 Unit/0.5ml) 5,000 unit Q12 SQ 08/21/16 21:00 09/20/16 20:59 08/23/16 08:36 5,000 UNIT Vancomycin HCl (Consult) 1 ea UD PRN N/A 08/22/16 12:15 09/21/16 12:14 Furosemide (Lasix Tab) 80 mg QAM PO 08/23/16 09:00 09/22/16 08:59 08/23/16 08:24 80 MG Warfarin Sodium (Coumadin Tab) 5 mg DAILY@16 PO 08/22/16 16:00 09/21/16 15:59 08/22/16 16:05 5 MG Carvedilol (Coreg Tab) 12.5 mg DAILY@0900 PO 08/23/16 09:00 09/22/16 08:59 08/23/16 08:23 12.5 MG Carvedilol (Coreg Tab) 6.25 mg DAILY@2100 PO 08/22/16 21:00 09/21/16 20:59 08/22/16 21:01 6.25 MG Last 24 Hours Test 08/22/16 11:17 08/22/16 16:59 08/22/16 20:05 08/23/16 04:44 Bedside Glucose 103 mg/dl 128 mg/dl 122 mg/dl Test 08/23/16 07:50 Bedside Glucose 121 mg/dl Assessment & Plan ESRD-volume status appropriate. getting off around 1.5 liters a night and will continue current rx of one green and one yellow of 5 exchanges and 2 liter fills. Anemia of renal failure-continue procrit to keep hg levels between 10 and 11. VERO: phos of 3 at last check, continue phoslo and vitamin d.
[2016-08-23 10:33] LABS: HEMATOCRIT 29.6 % (42-52); MEAN CORPUSCULAR HEMOGLOBIN 31.1 pg (25-34); MEAN CORPUSCULAR HGB CONC 31.8 g/dl (32-36); MEAN PLATELET VOLUME 9.2 fL (7.4-10.4); PLATELET COUNT 296 K/uL (130-400); RED BLOOD COUNT 3.02 M/uL (4.7-6.1); WHITE BLOOD COUNT 13.46 K/uL (4.8-10.8)
[2016-08-23 10:41] LABS: INR 1.8 (0.9-1.1); PROTHROMBIN TIME (PATIENT) 19.7 SECONDS (9.0-12.0)
--- NOTE | 2016-08-23 10:56 | ECHOCARDIOGRAM REPORT ---
*NOTICE TO RECEIVING CONSTITUTION PARTY AGENCY This information is strictly Confidential and protected under [place] law. [place] law prohibits you from making any further disclosure of this information unless further disclosure is expressly permitted by the written consent of the person to whom it pertains or is authorized by law. A general authorization for the release of medical or other information is not sufficient for this purpose. Hospital accepts no responsibility if the information is made available to any other person, INCLUDING THE PATIENT. Interpretation Summary * Name: SAM JONES Study Date: 08/23/2016 08:15 AM BP: 126/66 mmHg * [place] [id number] HR: 80 * : 1940 (M/d/yyyy) Gender: Male Height: 69 in * Age: 76 yrs Ethnicity: [place] Weight: 190 lb * Ordering Physician: Marco A Moya * Referring Physician: Self, Referred * Performed By: Serenity Pinon * * Reason For Study: POSSIBLE MV VEGETATION, FOLLOW-UP * BSA: 2.0 m2 * -- Conclusions -- * There is a bioprosthetic mitral valve. * Bioprosthesis leaflets are thickened but move well. * Prevoiusly noted mobile density on the mitral valve prosthesis is less apparent on the current study, coannot exclude small vegetation * The prosthetic mitral valve is well-seated. * There is trace mitral regurgitation. * There is a bioprosthetic aortic valve. * The prosthetic aortic valve appears to open well. * There is no aortic valvular vegetation. Procedure Details * Limited views were obtained. Left Ventricle * Ejection Fraction = 40-45%. Mitral Valve * A vegetation on the mitral valve cannot be excluded. * There is trace mitral regurgitation. * There is a bioprosthetic mitral valve. * Bioprosthesis leaflets are thickened but move well. * The prosthetic mitral valve is well-seated. * Prevoiusly noted mobile density on the mitral valve prosthesis is less apparent on the current study. Tricuspid Valve * The tricuspid valve anatomy is normal. Aortic Valve * There is no aortic valvular vegetation. * No aortic regurgitation is present. * There is a bioprosthetic aortic valve. * The prosthetic aortic valve appears to open well. MMode 2D Measurements and Calculations IVSd 1.0 cm IVSs 1.7 cm LVIDd 4.8 cm LVIDs 3.7 cm LVPWd 1.4 cm LVPWs 1.9 cm IVS/LVPW 0.72 FS 22.3 % EDV(Teich) 109.0 ml ESV(Teich) 60.0 ml EF(Teich) 45.0 % EDV(cubed) 112.6 ml ESV(cubed) 52.7 ml EF(cubed) 53.2 % % IVS thick 69.2 % % LVPW thick 31.1 % LV mass(C)d 226.3 grams LV mass(C)dI 112.0 grams/m\S\2 LV mass(C)s 285.1 grams LV mass(C)sI 141.1 grams/m\S\2 SV(Teich) 49.0 ml SI(Teich) 24.3 ml/m\S\2 SV(cubed) 59.9 ml SI(cubed) 29.6 ml/m\S\2 LA dimension 6.1 cm asc Aorta Diam 3.4 cm LVOT diam 1.9 cm LVOT area 2.8 cm\S\2 Doppler Measurements and Calculations Ao V2 max 252.5 cm/sec Ao max PG 25.5 mmHg Ao max PG (full) 20.5 mmHg Ao V2 mean 155.0 cm/sec Ao mean PG 11.4 mmHg Ao mean PG (full) 8.9 mmHg Ao V2 VTI 38.7 cm CAMMY(I,A) 1.4 cm\S\2 CAMMY(I,D) 1.4 cm\S\2 CAMMY(V,A) 1.2 cm\S\2 CAMMY(V,D) 1.2 cm\S\2 LV V1 max PG 5.0 mmHg LV V1 mean PG 2.4 mmHg LV V1 max 112.2 cm/sec LV V1 mean 72.2 cm/sec LV V1 VTI 19.1 cm MR max augustine 279.0 cm/sec MR max PG 31.1 mmHg SV(LVOT) 52.7 ml SI(LVOT) 26.1 ml/m\S\2 TR max augustine 256.6 cm/sec
[2016-08-23 11:01] LABS: BUN/CREATININE RATIO 8.8 (10-20); CALCIUM 8.1 mg/dl (8.5-10.1); CREATININE 4.1 mg/dl (0.60-1.40); POTASSIUM 3.2 mmol/L (3.5-5.1)
--- NOTE | 2016-08-23 12:49 | Infectious Disease Progress Nt ---
Progress Note Date of Service Aug 23, 2016. Subjective Pt evaluation today including: conversation w/ patient, conversation w/ family (son), physical exam, chart review, lab review, review of studies, conversation w/ admissions consultant (Dr. Moya), review of inpatient medication list White blood cell count was 13.46 today. Creatinine was 4.10. He continues on IV vancomycin. Surgical cultures are growing MSSA and Enterococcus. Repeat blood cultures were finalized as no growth. The patient states that he is doing well today. He has minimal pain in his right lower extremity. He has a small dressing on his heel this morning. He states that he may not be able to get a PICC line placed due to bilateral AV fistula. He has a non working fistula in the left upper extremity. Repeat echocardiogram continues to show a small mobile area on the mitral valve which could possibly represent a vegetation. All Other Systems: Reviewed and Negative Medications Current Inpatient Medications Medications (Trade) Dose Ordered Sig/Andrei Route Start Time Stop Time Status Last Admin Dose Admin Acetaminophen (Tylenol Tab) 650 mg Q4H PRN PO 08/15/16 00:15 09/14/16 00:14 Polyethylene (Miralax Powder Packet) 17 gm DAILY PRN PO 08/15/16 00:15 09/14/16 00:14 08/18/16 09:03 17 GM Ondansetron HCl (Zofran Inj) 4 mg Q6H PRN IV 08/15/16 00:15 09/14/16 00:14 Glucose (Glucose 40% Gel) 15-30 GRAMS 15 GRAMS... UD PRN PO 08/15/16 00:15 09/14/16 00:14 Glucose (Glucose Chew Tab) 4-8 Tablets 4 Tabl... UD PRN PO 08/15/16 00:15 09/14/16 00:14 Dextrose (Dextrose 50% 50ML Syringe) 25-50ML OF 50% DW IV FOR... UD PRN IV 08/15/16 00:15 09/14/16 00:14 Glucagon (Glucagon Inj) 1 mg UD PRN SQ 08/15/16 00:15 09/14/16 00:14 Miscellaneous Information (Consult Glycemic Management Pharmacy) 1 ea DAILY PRN N/A 08/15/16 02:18 09/14/16 02:17 Acetazolamide (Diamox Tab) 250 mg BID PO 08/15/16 09:00 09/14/16 08:59 08/23/16 08:16 250 MG Calcium Acetate (Phoslo Cap) 667 mg AC PO 08/15/16 08:00 09/14/16 07:59 08/23/16 08:11 667 MG Fish Oil ([place]-3 (Purified Fish Oil) Cap) 1 gm DAILY PO 08/15/16 09:00 09/14/16 08:59 08/23/16 08:15 1 GM Folic Acid (Folvite Tab) 1 mg DAILY PO 08/15/16 09:00 09/14/16 08:59 08/23/16 08:36 1 MG Multivitamins (Multivitamin Tab) 1 tab DAILY PO 08/15/16 09:00 09/14/16 08:59 08/23/16 08:16 1 TAB Ranolazine (Ranexa ER Tab) 500 mg BID PO 08/15/16 09:00 09/14/16 08:59 08/23/16 08:17 500 MG Cholecalciferol (Vitamin D Tab) 1,000 inter.unit QAM PO 08/15/16 09:00 09/14/16 08:59 08/23/16 08:14 1,000 INTER.UNIT Citalopram Hydrobromide (celeXA TAB) 20 mg QAM PO 08/15/16 09:00 09/14/16 08:59 08/23/16 08:13 20 MG Pantoprazole Sodium (Protonix Tab) 40 mg QAM PO 08/15/16 09:00 09/14/16 08:59 08/23/16 08:13 40 MG Morphine Sulfate (MoRPHine SULFATE INJ) 2 mg Q6H PRN IV 08/15/16 15:45 08/29/16 15:44 Tramadol HCl (Ultram Tab) 50 mg Q6H PRN PO 08/15/16 15:45 09/14/16 15:44 Insulin Glargine (Lantus Solostar Pen) SEE PROTOCOL DAILY SC 08/18/16 09:00 09/17/16 08:59 Future hold 08/23/16 08:35 20 UNIT Insulin Aspart (novoLOG ASPART) SLIDING SCALE If C... ACHS SC 08/20/16 08:00 09/19/16 07:59 08/22/16 08:35 2 UNITS Heparin Sodium (Porcine) (Heparin Sq 5000 Unit/0.5ml) 5,000 unit Q12 SQ 08/21/16 21:00 09/20/16 20:59 08/23/16 08:36 5,000 UNIT Vancomycin HCl (Consult) 1 ea UD PRN N/A 08/22/16 12:15 09/21/16 12:14 Furosemide (Lasix Tab) 80 mg QAM PO 08/23/16 09:00 09/22/16 08:59 08/23/16 08:24 80 MG Warfarin Sodium (Coumadin Tab) 5 mg DAILY@16 PO 08/22/16 16:00 09/21/16 15:59 08/22/16 16:05 5 MG Carvedilol (Coreg Tab) 12.5 mg DAILY@0900 PO 08/23/16 09:00 09/22/16 08:59 08/23/16 08:23 12.5 MG Carvedilol (Coreg Tab) 6.25 mg DAILY@2100 PO 08/22/16 21:00 09/21/16 20:59 08/22/16 21:01 6.25 MG Objective Vital Signs Date Time Temp Pulse Resp B/P Pulse Ox O2 Delivery O2 Flow Rate FiO2 08/23/16 08:22 37.0 71 18 110/67 98 Room Air 08/23/16 07:50 98 Room Air 08/22/16 23:34 37.2 80 126/66 08/22/16 23:30 Room Air 08/22/16 22:59 37.2 80 15 126/66 99 Room Air 08/22/16 20:45 70 116/63 08/22/16 15:44 58 08/22/16 15:41 58 08/22/16 15:30 Room Air 08/22/16 15:27 36.6 64 18 99/46 100 Room Air Physical Exam General Appearance: WD/WN, no apparent distress Eyes: normal inspection, sclerae normal ENT: hearing grossly normal Neck: supple, trachea midline Respiratory/Chest: no respiratory distress, no accessory muscle use Cardiovascular: regular rate, rhythm Extremities: + pertinent finding (Ever bandage and dressing over the right heel. C/D/I.) Neurologic/Psychiatric: alert, normal mood/affect Skin: normal color, warm/dry, no rash Laboratory Results RUN DATE: 08/23/16 [facility] PAGE 1 RUN TIME: 1055 Specimen Inquiry PATIENT: SAM JONES LOC: ELISA U # : [id number] AGE/SX: 76/M ROOM: [facility] REG : 08/15/[address]: Marco A Moya MD : 1940 BED: 1 DIS : STATUS: ADM IN TLOC: SPEC #: [id number] MYRTLE: 08/19/16-UNK STATUS: RES REQ #: [id number] RECD: 08/19/16-[address]: Marco A Moya MD SOURCE: ULCER ENTR: 08/19/16-[address]: Shruthi Whitaker MD SPDESC: FOOT RIGHT Onur Blandon D.O. Bell, Evan T MD Sumner, Lauren M. , Kizzy Padgett M.D. ORDERED: AER/WILL CULTSMR COMMENTS: CULTURE #1 RIGHT HEEL ULCER Procedure Result Verified Site GRAM STAIN Final 08/20/16 RESULT RARE WBCs SEEN RARE GRAM POSITIVE COCCI OR AER/WILL CULT Preliminary 08/23/16-1055 Organism 1 STAPHYLOCOCCUS AUREUS QUANITY FEW SENS SENSITIVITY TO FOLLOW ANAS NO ANAEROBES ISOLATED. +MIXWOUND PLUS LOW COUNTS OF PROBABLE SKIN JIM Organism 2 ENTEROCOCCUS FAECALIS QUANITY RARE SENS SENSITIVITY TO FOLLOW Organism 3 CORYNEBACTERIUM SPECIES QUANITY FEW SENS NO SENSITIVITY TO FOLLOW STAPH AUR E FAECALIS M.I.C. RX M.I.C. RX --------- ------ --------- ------ TRIMET/SULFA <=0.5/9.5 S AMPICILLIN <=2 S * OXACILLIN 0.5 S GENT SYNERGY <=500 S VANCOMYCIN 2 S 2 S PENICILLIN 2 S ERYTHROMYCIN <=0.5 S TETRACYCLINE <=4 S CLINDAMYCIN <=0.5 S DAPTOMYCIN <=0.5 S 1 S STREP SYNERGY >1000 R ENTEROCOCCUS FAECALIS: POSITIVE COMBO 33 Streptomycin Synergy Screen R Gentamicin Synergy Screen S CONTINUED ON NEXT PAGE RUN DATE: 08/23/16 [facility] PAGE 2 RUN TIME: 1055 Specimen Inquiry SPEC: [id number] PATIENT: SAM JONES [id number] ( Continued) Procedure Result Verified Site OR AER/WILL CULT Preliminary (continued) 08/23/16-1055 1. STAPHYLOCOCCUS AUREUS Target Route Dose RX AB Cost M.I.C. IQ ------ ----- ------ -- ------ -------- - ------ TRIMET/SULFA S <=0.5/ 9.5 * OXACILLIN S 0.5 VANCOMYCIN S 2 ERYTHROMYCIN S <=0.5 TETRACYCLINE S <=4 CLINDAMYCIN S <=0.5 DAPTOMYCIN S <=0.5 2. ENTEROCOCCUS FAECALIS Target Route Dose RX AB Cost M.I.C. IQ ------ ----- ------ -- ------ -------- - ------ AMPICILLIN S <=2 GENT SYNERGY S <=500 VANCOMYCIN S 2 PENICILLIN S 2 DAPTOMYCIN S 1 STREP SYNERGY R >1000 Streptomycin Synergy Screen R Gentamicin Synergy Screen S S = SENSITIVE I = INTERMEDIATE R = RESISTANT Item Value Date Time Gram Stain - Final Resulted 08/19/16 0000 Ulcer Foot Right Gram Stain - Final Resulted 08/19/16 0000 Bone Heel , Right Blood Culture - Final Complete 08/16/16 1125 Blood NO GROWTH Blood Culture - Final Complete 08/16/16 1125 Blood NO GROWTH Last 24 Hours Test 08/22/16 16:59 08/22/16 20:05 08/23/16 07:50 08/23/16 10:09 Bedside Glucose 128 mg/dl 122 mg/dl 121 mg/dl White Blood Count 13.46 K/uL Red Blood Count 3.02 M/uL Hemoglobin 9.4 g/dL Hematocrit 29.6 % Mean Corpuscular Volume 98.0 fL Mean Corpuscular Hemoglobin 31.1 pg Mean Corpuscular Hemoglobin Concent 31.8 g/dl RDW Standard Deviation 61.2 fL RDW Coefficient of Variation 16.9 % Platelet Count 296 K/uL Mean Platelet Volume 9.2 fL Prothrombin Time 19.7 SECONDS Prothromb Time International Ratio 1.8 Sodium Level 141 mmol/L Potassium Level 3.2 mmol/L Chloride Level 103 mmol/L Carbon Dioxide Level 27 mmol/L Anion Gap 11.0 mmol/L Blood Urea Nitrogen 36 mg/dl Creatinine 4.10 mg/dl Est Creatinine Clear Calc Drug Dose 16.8 ml/min Estimated GFR () 15.3 Estimated GFR (Non- 13.2 BUN/Creatinine Ratio 8.8 Random Glucose 118 mg/dl Calcium Level 8.1 mg/dl Test 08/23/16 11:30 Bedside Glucose 122 mg/dl Assessment and Plan Patient with right distal Achilles tendon rupture, overlying wound, and calcaneal osteomyelitis. Currently the patient is on IV vancomycin. Surgical cultures growing MSSA and Enterococcus which is sensitive to ampicillin. Therefore, will change to IV ceftriaxone 2 g daily and p.o. amoxicillin 500 mg t.i.d.. The patient will require 6 weeks of antibiotic therapy. If the patient cannot have a PICC line placed, then can continue antibiotic therapy via peripheral IV. Will also add Rifampin for additional coverage of staph with likely vegetation. Therefore, will check LFTs today. We will follow. Case reviewed and agree with above assessment, continue abx, will require prolonged course and outpt follow up
[2016-08-23 13:33] LABS: ALKALINE PHOSPHATASE 94 U/L (45-117); ALT/SGPT < 6 U/L (12-78); AST/SGOT 12 U/L (15-37)
[2016-08-23] MEDS: CEFTRIAXONE SOD INJ 2,000 MG in DEXTROSE 5% 50ML 50 ML IV SCH (14:45)
[2016-08-23] MEDS: WARFARIN SOD 5 MG TAB PO SCH (15:42)
--- NOTE | 2016-08-23 16:11 | Progress Note ---
Internal Med Progress Note Date of Service: Aug 23, 2016. Provider Documentation: SUBJECTIVE: pt denies of any pain or discomfort , baseline dementia attempt to put PICC line on rt upper arm was unsuccessful by PICC team resistance noted after 30 cm PICC insertion , attempted to remove PICC - end 5 cm got stuck , could not be removed Vascular surgery updated pt will be evaluated by Dr Mendoza team tomorrow Nursing is asked not to use or access -non functional PICC OBJECTIVE: Vital Signs-as noted below Exam: General-elderly male , baseline dementia ,no apparent distress Eyes-sclera non icteric ENT-NAD Neck-no JVD Lungs-diminished Heart-regular Abdomen-soft, non tender Extremities-rt foot s/p I&D , surgical bandage present , Rt upper arm non functioning PICC line -unable to be take out by IV team Neuro-no focal neurological deficit Lab data as noted below. ASSESSMENT & PLAN: Calcaneus Osteomyelitis, - s/p Debridement 08/19/16 - blood cultures :negative wound culture: Staph, MSSS bone culture: Staph, Strep echo: possible vegetation on mitral valve leaflet will need at least 6 weeks antibiotics via PICC line, unable to place PICC line today/resistance noted after 30 cm , unable to remove line as got trapped at last 5 cm ext Vascular surgery consulted for assistance in removal of PICC per IV team -pt is not a candidate for PICC /midline , had prior failed fistula in rt upper arm ID consulted , appreciate recommendations Surgical cultures growing MSSA and Enterococcus which is sensitive to ampicillin. Abx changed to IV ceftriaxone 2 g daily and p.o. amoxicillin 500 mg t.i.d.. patient will require 6 weeks of antibiotic therapy. Will also add Rifampin for additional coverage of staph with likely vegetation. If the patient cannot have a PICC line placed, antibiotic therapy can be continued via peripheral IV. 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 Bioprosthesis leaflets are thickened but move well. Prevoiusly noted mobile density on the mitral valve prosthesis is less apparent on the current study, coannot exclude small vegetation The prosthetic mitral valve is well-seated. There is trace mitral regurgitation. There is a bioprosthetic aortic valve. The prosthetic aortic valve appears to open well. There is no aortic valvular vegetation. Procedure Details Bradycardia: Digoxin discontinued reduced PM dose of Coreg 6.25 mg /cont AM dose of Coreg 12.5 mg daily CAD s/p CABG - hold Lisinopril for marginal BP -on Ranexa - on Aspirin Atrial fibrillation - in sinus rhythm, HR controlled - Coreg dose adjusted and Digoxin-D/ed for bradycardia - on Coumadin monitor INR Chronic systolic heart failure EF 35% -40 % - on Lasix 80mg daily monitor volume status Anemia-likely multifactorial but 2/2 mainly to ESRD - on Procrit. - given 2 units PRBC Hg stable at ~9 monitor ESRD on peritoneal dialysis -consulted Nephrology Severe PAD -s/p recent vascular intervention last week s/p 3 stents placed. on Aspirin DM II -ISS/Lantus, glycemic pharmacy consult placed DVT prop - on Coumadin FULL CODE DISPOSITION : will likely need Rehab/SNF- [facility] referrals made Social service consulted for discharge planning Vital Signs: Date Time Temp Pulse Resp B/P Pulse Ox O2 Delivery O2 Flow Rate FiO2 08/24/16 07:59 99 Room Air 08/24/16 07:51 36.5 62 16 83/42 99 Room Air 08/23/16 23:25 Room Air 08/23/16 22:56 37.0 90 16 131/65 99 Room Air 08/23/16 21:33 36.5 62 167/79 08/23/16 20:54 62 167/79 08/23/16 15:20 Room Air 08/23/16 14:58 36.5 58 17 104/60 99 Room Air Lab Results: Results Past 24 Hours Test 08/23/16 10:09 08/23/16 11:30 08/23/16 16:54 08/23/16 20:44 Range/Units White Blood Count 13.46 4.8-10.8 K/uL Red Blood Count 3.02 4.7-6.1 M/uL Hemoglobin 9.4 14.0-18.0 g/dL Hematocrit 29.6 42-52 % Mean Corpuscular Volume 98.0 80-100 fL Mean Corpuscular Hemoglobin 31.1 25-34 pg Mean Corpuscular Hemoglobin Concent 31.8 32-36 g/dl RDW Standard Deviation 61.2 36.4-46.3 fL RDW Coefficient of Variation 16.9 11.5-14.5 % Platelet Count 296 130-400 K/uL Mean Platelet Volume 9.2 7.4-10.4 fL Prothrombin Time 19.7 9.0-12.0 SECONDS Prothromb Time International Ratio 1.8 0.9-1.1 Sodium Level 141 136-145 mmol/L Potassium Level 3.2 3.5-5.1 mmol/L Chloride Level 103 98-107 mmol/L Carbon Dioxide Level 27 21-32 mmol/L Anion Gap 11.0 3-11 mmol/L Blood Urea Nitrogen 36 7-18 mg/dl Creatinine 4.10 0.60-1.40 mg/dl Est Creatinine Clear Calc Drug Dose 16.8 ml/min Estimated GFR () 15.3 Estimated GFR (Non- 13.2 BUN/Creatinine Ratio 8.8 10-20 Random Glucose 118 70-99 mg/dl Calcium Level 8.1 8.5-10.1 mg/dl Total Bilirubin 0.3 0.2-1 mg/dl Direct Bilirubin 0.1 0-0.2 mg/dl Aspartate Amino Transf (AST/SGOT) 12 15-37 U/L Alanine Aminotransferase (ALT/SGPT) < 6 12-78 U/L Alkaline Phosphatase 94 45-117 U/L Total Protein 6.4 6.4-8.2 gm/dl Albumin 2.0 3.4-5.0 gm/dl Bedside Glucose 122 97 74 70-99 mg/dl Test 08/24/16 06:06 08/24/16 08:28 Range/Units White Blood Count 11.33 4.8-10.8 K/uL Red Blood Count 3.02 4.7-6.1 M/uL Hemoglobin 9.6 14.0-18.0 g/dL Hematocrit 30.2 42-52 % Mean Corpuscular Volume 100.0 80-100 fL Mean Corpuscular Hemoglobin 31.8 25-34 pg Mean Corpuscular Hemoglobin Concent 31.8 32-36 g/dl RDW Standard Deviation 61.5 36.4-46.3 fL RDW Coefficient of Variation 16.7 11.5-14.5 % Platelet Count 282 130-400 K/uL Mean Platelet Volume 9.2 7.4-10.4 fL Bedside Glucose 129 70-99 mg/dl
[2016-08-23] MEDS ORDERED: [UNRECOGNIZED DRUG - REMARK] PRN (16:15)
[2016-08-23] MEDS: AMOXICILLIN 500 MG CAP PO SCH ×2 (17:02→20:57)
[2016-08-23] MEDS: CARVEDILOL 6.25 MG TAB PO SCH (20:58)
[2016-08-23] MEDS: RIFAMPIN 300 MG CAP PO SCH (20:59)
[2016-08-24] VITALS (9 sets, daily range): BP systolic 83–125; BP diastolic 42–66; PULSE 60–91; TEMP 36.5–37; O2SAT 94–100
[2016-08-24 06:22] LABS: HEMATOCRIT 30.2 % (42-52); MEAN CORPUSCULAR HEMOGLOBIN 31.8 pg (25-34); MEAN CORPUSCULAR HGB CONC 31.8 g/dl (32-36); MEAN PLATELET VOLUME 9.2 fL (7.4-10.4); PLATELET COUNT 282 K/uL (130-400); RED BLOOD COUNT 3.02 M/uL (4.7-6.1); WHITE BLOOD COUNT 11.33 K/uL (4.8-10.8)
--- NOTE | 2016-08-24 07:50 | Orthopedic Progress Note ---
Orthopedic Progress Note Date of Service Aug 24, 2016. Subjective Post OP Day: 5 Reports: feeling well, pain controlled w PO medications, Denies: complaints Objective calves soft nontender, A&O x3 Right heel with continued antibiotic beads extruding from the most proximal aspect of the ulceration where the achilles and calcaneus debridement were performed. No purulence noted today. No erythema or streaking. There is moderate serosanguinous drainage on the gauze and ABD during dressing change. Date Time Temp Pulse Resp B/P Pulse Ox O2 Delivery O2 Flow Rate FiO2 08/23/16 23:25 Room Air 08/23/16 22:56 37.0 90 16 131/65 99 Room Air 08/23/16 21:33 36.5 62 167/79 08/23/16 20:54 62 167/79 08/23/16 15:20 Room Air 08/23/16 14:58 36.5 58 17 104/60 99 Room Air 08/23/16 08:22 37.0 71 18 110/67 98 Room Air 08/23/16 07:50 98 Room Air Laboratory Results 24 Hours: Test 08/23/16 10:09 08/24/16 06:06 Hematocrit 29.6 % 30.2 % Hemoglobin 9.4 g/dL 9.6 g/dL Prothromb Time International Ratio 1.8 Prothrombin Time 19.7 SECONDS Assessment & Plan Assessment: POD #5 Irrigation and debridment right posterior heel necrotic diabetic wound, debridement right posterior necrotic calcaneal bone, debridement Achilles tendon, Excision avulsion fracture posterior calcaneus, debridement skin and fascia posterior heel, implantation antibiotic laden stimulan beads . Patricia sensitive Staph Aureus growing, Strep, and corynebacterium Anemia Plan: Will continue to monitor for dressing changes. Daily dressing changes by nursing in the AM. PICC line will need to be placed per ID--IV team had difficulty with the PICC line placement. Surgical eval. today. Pt will possibly need a delayed repair of the Achilles Tendon if the infection can be cleared and soft tissue coverage is possible. Continue to follow for wound care Inhouse Planning Pain Management: Ultram, Morphine DVT Prophylaxis: TEDs, SCDs, Coumadin Discharge Planning Discharge Planning: uncertain
[2016-08-24] MEDS: INSULIN ASPART 100 UNITS/ML 3 ML PEN SC SCH ×4 (08:00→20:44)
[2016-08-24] MEDS: CALCIUM ACETATE 667MG GELCAP PO SCH ×3 (08:36→17:25)
[2016-08-24] MEDS: CITALOPRAM 20 MG TAB PO SCH (08:39)
[2016-08-24] MEDS: MULTIVITAMIN TAB PO SCH (08:43)
[2016-08-24] MEDS: OMEGA-3 (PURIFIED FISH OIL) 1 GM CAP PO SCH (08:44)
[2016-08-24] MEDS: PANTOprazole SOD 40 MG TAB PO SCH (08:45)
[2016-08-24] MEDS: RANOLAZINE 500 MG ER TAB PO SCH ×2 (08:45→20:44)
[2016-08-24] MEDS: CHOLECALCIFEROL 1000 INTER.UNIT TAB PO SCH (08:46)
--- NOTE | 2016-08-24 09:12 | Nephrology Progress Note ---
Nephrology Progress Note Date of Service: Aug 24, 2016. 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 pt had picc line placed yesterday. doing well. was hoping to go home soon. Objective Date Time Temp Pulse Resp B/P Pulse Ox O2 Delivery O2 Flow Rate FiO2 08/24/16 07:59 99 Room Air 08/24/16 07:51 36.5 62 16 83/42 99 Room Air 08/23/16 23:25 Room Air 08/23/16 22:56 37.0 90 16 131/65 99 Room Air 08/23/16 21:33 36.5 62 167/79 08/23/16 20:54 62 167/79 08/23/16 15:20 Room Air 08/23/16 14:58 36.5 58 17 104/60 99 Room Air Physical Exam: General-aaox3 Eyes-no scleral icterus ENT-mmm Neck-supple Lungs-clear Heart-rrr Abdomen-pd catheter in place, soft, nontender Extremities-right heel ulcer-wrapped Neuro-nonfocal Current Inpatient Medications Medications (Trade) Dose Ordered Sig/Andrei Route Start Time Stop Time Status Last Admin Dose Admin Acetaminophen (Tylenol Tab) 650 mg Q4H PRN PO 08/15/16 00:15 09/14/16 00:14 Polyethylene (Miralax Powder Packet) 17 gm DAILY PRN PO 08/15/16 00:15 09/14/16 00:14 08/18/16 09:03 17 GM Ondansetron HCl (Zofran Inj) 4 mg Q6H PRN IV 08/15/16 00:15 09/14/16 00:14 Glucose (Glucose 40% Gel) 15-30 GRAMS 15 GRAMS... UD PRN PO 08/15/16 00:15 09/14/16 00:14 Glucose (Glucose Chew Tab) 4-8 Tablets 4 Tabl... UD PRN PO 08/15/16 00:15 09/14/16 00:14 Dextrose (Dextrose 50% 50ML Syringe) 25-50ML OF 50% DW IV FOR... UD PRN IV 08/15/16 00:15 09/14/16 00:14 Glucagon (Glucagon Inj) 1 mg UD PRN SQ 08/15/16 00:15 09/14/16 00:14 Miscellaneous Information (Consult Glycemic Management Pharmacy) 1 ea DAILY PRN N/A 08/15/16 02:18 09/14/16 02:17 Acetazolamide (Diamox Tab) 250 mg BID PO 08/15/16 09:00 09/14/16 08:59 08/23/16 20:58 250 MG Calcium Acetate (Phoslo Cap) 667 mg AC PO 08/15/16 08:00 09/14/16 07:59 08/24/16 08:36 667 MG Fish Oil ([place]-3 (Purified Fish Oil) Cap) 1 gm DAILY PO 08/15/16 09:00 09/14/16 08:59 08/24/16 08:44 1 GM Folic Acid (Folvite Tab) 1 mg DAILY PO 08/15/16 09:00 09/14/16 08:59 08/24/16 08:42 1 MG Multivitamins (Multivitamin Tab) 1 tab DAILY PO 08/15/16 09:00 09/14/16 08:59 08/24/16 08:43 1 TAB Ranolazine (Ranexa ER Tab) 500 mg BID PO 08/15/16 09:00 09/14/16 08:59 08/24/16 08:45 500 MG Cholecalciferol (Vitamin D Tab) 1,000 inter.unit QAM PO 08/15/16 09:00 09/14/16 08:59 08/24/16 08:46 1,000 INTER.UNIT Citalopram Hydrobromide (celeXA TAB) 20 mg QAM PO 08/15/16 09:00 09/14/16 08:59 08/24/16 08:39 20 MG Pantoprazole Sodium (Protonix Tab) 40 mg QAM PO 08/15/16 09:00 09/14/16 08:59 08/24/16 08:45 40 MG Morphine Sulfate (MoRPHine SULFATE INJ) 2 mg Q6H PRN IV 08/15/16 15:45 08/29/16 15:44 Tramadol HCl (Ultram Tab) 50 mg Q6H PRN PO 08/15/16 15:45 09/14/16 15:44 Insulin Glargine (Lantus Solostar Pen) SEE PROTOCOL DAILY SC 08/18/16 09:00 09/17/16 08:59 Future hold 08/23/16 08:35 20 UNIT Insulin Aspart (novoLOG ASPART) SLIDING SCALE If C... ACHS SC 08/20/16 08:00 09/19/16 07:59 08/22/16 08:35 2 UNITS Heparin Sodium (Porcine) (Heparin Sq 5000 Unit/0.5ml) 5,000 unit Q12 SQ 08/21/16 21:00 09/20/16 20:59 08/23/16 21:06 5,000 UNIT Furosemide (Lasix Tab) 80 mg QAM PO 08/23/16 09:00 09/22/16 08:59 08/23/16 08:24 80 MG Warfarin Sodium (Coumadin Tab) 5 mg DAILY@16 PO 08/22/16 16:00 09/21/16 15:59 Future Hold 08/23/16 15:42 5 MG Carvedilol (Coreg Tab) 12.5 mg DAILY@0900 PO 08/23/16 09:00 09/22/16 08:59 08/23/16 08:23 12.5 MG Carvedilol 6.25 mg 6.25 mg DAILY@2100 PO 08/22/16 21:00 09/21/16 20:59 08/23/16 20:58 6.25 MG Ceftriaxone Sodium/Dextrose (Rocephin Inj/D5 50ml) 70 ml @ 100 mls/hr DAILY@1400 IV 08/23/16 14:00 10/04/16 13:59 08/23/16 14:45 100 MLS/HR Amoxicillin (Amoxil Cap) 500 mg Q12 PO 08/23/16 16:00 10/04/16 15:59 08/23/16 20:57 500 MG Rifampin (Rifadin Cap) 300 mg BID PO 08/23/16 21:00 10/04/16 20:59 08/23/16 20:59 300 MG Miscellaneous Information 1 ea UD PRN N/A 08/23/16 16:15 09/22/16 16:14 Last 24 Hours Test 08/23/16 10:09 08/23/16 11:30 08/23/16 16:54 08/23/16 20:44 White Blood Count 13.46 K/uL Red Blood Count 3.02 M/uL Hemoglobin 9.4 g/dL Hematocrit 29.6 % Mean Corpuscular Volume 98.0 fL Mean Corpuscular Hemoglobin 31.1 pg Mean Corpuscular Hemoglobin Concent 31.8 g/dl RDW Standard Deviation 61.2 fL RDW Coefficient of Variation 16.9 % Platelet Count 296 K/uL Mean Platelet Volume 9.2 fL Prothrombin Time 19.7 SECONDS Prothromb Time International Ratio 1.8 Sodium Level 141 mmol/L Potassium Level 3.2 mmol/L Chloride Level 103 mmol/L Carbon Dioxide Level 27 mmol/L Anion Gap 11.0 mmol/L Blood Urea Nitrogen 36 mg/dl Creatinine 4.10 mg/dl Est Creatinine Clear Calc Drug Dose 16.8 ml/min Estimated GFR () 15.3 Estimated GFR (Non- 13.2 BUN/Creatinine Ratio 8.8 Random Glucose 118 mg/dl Calcium Level 8.1 mg/dl Total Bilirubin 0.3 mg/dl Direct Bilirubin 0.1 mg/dl Aspartate Amino Transf (AST/SGOT) 12 U/L Alanine Aminotransferase (ALT/SGPT) < 6 U/L Alkaline Phosphatase 94 U/L Total Protein 6.4 gm/dl Albumin 2.0 gm/dl Bedside Glucose 122 mg/dl 97 mg/dl 74 mg/dl Test 08/24/16 06:06 08/24/16 08:28 08/24/16 08:50 White Blood Count 11.33 K/uL Red Blood Count 3.02 M/uL Hemoglobin 9.6 g/dL Hematocrit 30.2 % Mean Corpuscular Volume 100.0 fL Mean Corpuscular Hemoglobin 31.8 pg Mean Corpuscular Hemoglobin Concent 31.8 g/dl RDW Standard Deviation 61.5 fL RDW Coefficient of Variation 16.7 % Platelet Count 282 K/uL Mean Platelet Volume 9.2 fL Bedside Glucose 129 mg/dl Assessment & Plan ESRD-volume status appropriate. continue the one green and one yellow. getting 1.5 liters off a day. Anemia of renal failure-continue procrit to keep hg levels between 10 and 11. VERO: continue phoslo and vitamin d. follow phos levels intermittently.
[2016-08-24] MEDS: AMOXICILLIN 500 MG CAP PO SCH (09:16)
[2016-08-24] MEDS: FUROSEMIDE 80 MG TAB PO SCH (09:17)
[2016-08-24] MEDS: CARVEDILOL 12.5 MG TAB PO SCH (09:17)
--- NOTE | 2016-08-24 09:21 | Pharmacy Progress Note ---
Glycemic: Assessment & Plan Date of Service Aug 24, 2016. Assessment & Plan Test 08/23/16 10:09 08/23/16 11:30 08/23/16 16:54 08/23/16 20:44 Random Glucose 118 mg/dl (70-99) Bedside Glucose 122 mg/dl (70-99) 97 mg/dl (70-99) 74 mg/dl (70-99) Test 08/24/16 08:28 Bedside Glucose 129 mg/dl (70-99) The patient is currently receiving 20 units of insulin per day, all from Lantus yesterday. BSGs ranging 74 - 122 mg/dl over the past 24hrs. Insulin regimen appears basal heavy, however, low po intake. Lantus on scale based on BSG, I will decrease doses on this scale to prevent hypoglycemia, as patient did have a BSG of 74mg/dL last evening. Patient on PD, case management trying to find placement for him for discharge that does PD, possibly DC at end of the week. * Basal insulin: Lantus qAM per scale: 10 units for BSG below 120 mg/dl; 15 units for BSG 120-180 mg/dl; 20 units for BSG above 180 mg/d * Correctional Insulin: Novolog Correction per scale ACHS Goal Range: Low 110 mg/dL - High 140 mg/dL Correction Factor: 30 mg/dL/unit * Prandial insulin: Per carb ratio of 1 unit per 10 grams CHO consumed Pharmacy will continue to monitor patient daily and write orders per [facility] inpatient glycemic control protocol. Thanks. * Please note that the plan above was derived based on current level of insulin resistance and hospital stress. These recommendations are appropriate for inpatient admission only. Plan of care upon discharge will need to be reassessed to avoid potential outpatient hypo/hyperglycemia.
[2016-08-24] MEDS: INSULIN GLARGINE SOLOSTAR 100 UNITS/ML 3 ML PEN SC SCH (09:29)
[2016-08-24] MEDS: HEPARIN SOD 5000 UNIT/0.5 ML CARP SQ SCH ×2 (09:30→20:45)
[2016-08-24] MEDS: RIFAMPIN 300 MG CAP PO SCH ×2 (09:41→20:44)
[2016-08-24] MEDS: AcetaZOLAMIDE 250 MG TAB PO SCH ×2 (09:41→20:44)
[2016-08-24 09:48] LABS: INR 2.9 (0.9-1.1); PROTHROMBIN TIME (PATIENT) 32.4 SECONDS (9.0-12.0)
--- NOTE | 2016-08-24 10:57 | Surgery Consultation ---
Consultation Date of Service Aug 24, 2016. Chief Complaint PICC line could not be removed History of Present Illness The patient is a 76 year old male who had an attempt at a PICC line yesterday. It would not thread. When trying to remove it, it would not come out of the puncture site. At least 5cm of the catheter remain in the vein. He denies any arm pain or discomfort. There is no drainage from the site. Vitals Vital Signs Past 12 Hours Date Time Temp Pulse Resp B/P Pulse Ox O2 Delivery O2 Flow Rate FiO2 08/24/16 09:15 82 113/50 08/24/16 07:59 99 Room Air 08/24/16 07:51 36.5 62 16 83/42 99 Room Air 08/24/16 07:40 Room Air 08/23/16 23:25 Room Air 08/23/16 22:56 37.0 90 16 131/65 99 Room Air Allergies Coded Allergies: No Known Allergies (Verified , 08/14/16) Home Medications Scheduled Acetazolamide (Acetazolamide), 250 MG PO BID Aspirin (Aspirin EC Low Dose), 81 MG PO DAILY Calcium Acetate (Phoslo 667 Mg), 1 CAP PO WM Carvedilol (Coreg), 12.5 MG PO BID Cholecalciferol (D3-1000), 1,000 UNITS PO DAILY Citalopram Hydrobromide (Citalopram Hydrobromide), 2 TAB PO DAILY Digoxin (Lanoxin), 0.125 MG PO 3XWK Fish Oil ([place]-3), 1 CAP PO DAILY Folic Acid (Folvite), 1 MG PO DAILY Furosemide (Lasix), 80 MG PO DAILY Insulin Glargine (Lantus Solostar), 10 UNITS SC QAM Insulin Lispro (Human) (Humalog), 0 SC ACHS Lisinopril (Lisinopril), 2.5 MG PO HS Melatonin-Pyridoxine (Melatonin), 1 TAB PO DAILY Multiple Vitamin (Multivitamin), 1 TAB PO DAILY Omeprazole (Prilosec), 20 MG PO DAILY Oyster Shell (Calcium), 500 MG PO DAILY Ranolazine (Ranexa), 1 TAB PO BID Warfarin Sodium (Coumadin), 3 MG PO DAILY Zinc Gluconate (Zinc), 50 MG PO BID Scheduled PRN Meclizine Hcl (Meclizine Hcl), 1 TAB PO TID PRN for Dizziness or Vertigo Nitroglycerin (Nitrostat), 0.4 MG SL UD PRN for Chest Pain Prochlorperazine Maleate (Compazine), 1 TAB PO Q6 PRN for Nausea Problem List Medical Problems: (1) Afib (2) Altered mental state (3) Anemia (4) Aortic stenosis (5) CAD (coronary artery disease) (6) CHF (congestive heart failure) (7) Depression (8) Dialysis patient (9) DM2 (diabetes mellitus, type 2) (10) ESRD (end stage renal disease) (11) ESRD on peritoneal dialysis (12) HLD (hyperlipidemia) (13) HTN (hypertension) (14) Osteomyelitis (15) PAD (peripheral artery disease) (16) Prostate CA (17) Toe amputation status (18) UTI (urinary tract infection) (19) Weakness Surgical Problems: (1) H/O colonoscopy (2) H/O heart artery stent (3) H/O radical prostatectomy (4) H/O splenectomy (5) History of cataract surgery (6) History of dental surgery (7) S/P AVR (8) S/P CABG x 5 (9) S/P MVR (mitral valve repair) Surgical / Medical History Hx Cardiac Surgery: Yes (AVR, CABG x5) Hx Abdominal Surgery: Yes (peritoneal dialysis cath, radical abdominal prostatectomy) 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) Hx Thoracic Surgery: No Hx Orthopedic: Yes (BILATERAL TOE AMPUTATION great toes) Hx Urinary Tract Surgery: No Past Medical/Surgical History: ASHD, Cancer (prostate), CHF, Depression, Diabetes, Heart Disease, High Cholesterol, Hypertension, Kidney Disease, Other ( peripheral artery disease, afib, toe amp) Family History Diabetes mellitus BROTHER FH: CAD (coronary artery disease) MOTHER BROTHER SISTER FH: lung cancer FATHER Social History Smoking Status: Never Smoker Hx Tobacco Use In Past Year?: No Hx Alcohol Use - Type & Amnt: No Hx Substance Use -Type & Amnt: No Review of Systems Respiratory: No POWERS, No PND, No cough, No cyanosis, No dyspnea, No hemoptysis, No orthopnea, No problem reported, No short of breath, No sputum production, No stridor, No wheezing Cardiovascular: No chest pain, No chest pressure, No chest tightness, No cyanosis, No diaphoresis, No edema, No intermittent claudication, No lightheadedness, No mumur, No orthopnea, No palpitations, No paroxysmal nocturnal dyspnea, No problem reported, No syncope Gastrointestinal: No abdominal pain, No anorexia, No appetite changes, No belching, No constipation, No diarrhea, No dysphagia, No flatulence, No food intolerance, No heartburn, No hematemesis, No hematochezia, No hemorrhoids, No indigestion, No nausea, No problem reported, No rectal bleeding, No stool changes, No vomiting Musculoskeletal: No back pain, No gout, No joint pain, No joint swelling, No muscle pain, No muscle stiffness, No muscle weakness, No neck pain, No problem reported Neurologic: No LOC, No dizziness, No headache, No lethargy, No memory loss, No numbness, No paresthesia, No pre-existing deficit, No problem reported, No seizures, No tics, No tingling, No tremors, No vertigo, No weakness Physical Exam Constitutional: General Apperance: heathly-appearing, well-nourished, well-developed Level of Distress: NAD Ambulation: ambulating normally Psychiatric: Mental Status: active & alert, normal mood, normal affect Orientation: oriented except where noted, to time, to place, to person Memory: recent memory normal, remote memory normal Neck: supple Lungs: Auscultation: breath sounds normal Cardiovascular: Heart Auscultation: RRR Peripheral Pulses: Radial Pulse: normal on the left, normal on the right Femoral Pulse: normal on the left, normal on the right Abdomen: Inspection & Palpation: soft Musculoskeletal: normal Extremities: Upper Right: no cyanosis, no edema, no varicosities, no palpable cord, no clubbing, no ulcers, no mottling Upper Left: no cyanosis, no edema, no palpable cord, no clubbing, no ulcers , no mottling, pertinent finding (picc line in place) Lower Right: no cyanosis, no edema, no varicosities, no palpable cord, no clubbing, no ulcers, no mottling Lower Left: no cyanosis, no edema, no varicosities, no palpable cord, no clubbing, no ulcers, no mottling Neurologic: Cranial Nerves: grossly intact Sensation: grossly intact Assessment and Plan Imp: Inability to remove PICC line Plan: Will remove PICC in angio suite today. Can place an infusaport on monday for IV access if desired. I have discussed the risks options and benefits of the procedure with the patient. The patient understands the risks options and benefits and agrees to the procedure. Thank you very much for letting me participate in the care of this patient.
[2016-08-24] MEDS ORDERED: FENTANYL CITRATE INJ 50 MCG/1 ML 2 ML VIAL ONE (12:29)
[2016-08-24] MEDS ORDERED: MIDAZOLAM HCL 1 MG/ML 2ML VIAL ONE (12:29)
[2016-08-24] MEDS ORDERED: LIDOCAINE HCL 1% 20 ML VIAL ONE (12:29)
[2016-08-24] MEDS ORDERED: LIDOCAINE HCL 1% 20 ML VIAL INJ ONE ×2 (13:26→13:27)
--- NOTE | 2016-08-24 13:42 | [facility] Post Operative Brief Note ---
Immediate Operative Summary Operative Date Aug 24, 2016. Pre-Operative Diagnosis inability to remove picc line Post-Operative Diagnosis same Procedure(s) Performed Removal of Foreign Body Left Arm (Picc Line) Surgeon Dr. Mendoza Construction Trench Digger Surgeon(s) Dr. Flowers Estimated Blood Loss 0 Findings entire catheter removed Specimens A. explanted picc line Anesthesia Local Complication(s) None Disposition
--- NOTE | 2016-08-24 14:08 | DIAGNOSTIC IMAGING REPORT ---
DATE OF PROCEDURE: 08/24/2016 PREOPERATIVE DIAGNOSIS: Left upper extremity malpositioned PICC line. POSTOPERATIVE DIAGNOSIS: Same. PROCEDURE PERFORMED: Left upper extremity removal of foreign body (malpositioned PICC line). SURGEON: Dr. Trey Mendoza M.D. EXCEL VBA DEVELOPER: Dr. Bright Flowers M.D. ANESTHESIA: Local anesthesia only. ESTIMATED BLOOD LOSS: Zero. INDICATIONS: This is a 76-year-old gentleman who recently underwent an attempted left upper extremity PICC line placement due to the need for long-term antibiotics. The insertion was difficult. The PICC was attempted to be removed, however it could not be released from the skin. Removal in the operating room under fluoroscopic guidance was indicated. Risks and alternatives were explained to the patient and he agreed to proceed. OPERATIVE PROCEDURE: The patient was brought to the endovascular suite and placed in supine position. Left upper extremity was prepped and draped in normal sterile fashion. A timeout was performed and all parties agreed to correct patient and procedure to be performed. A preoperative x-ray showed there to be a knot in the PICC line at the distal aspect. Despite aggressive manipulation the PICC line could not be removed. The site was infiltrated with approximately 20 mL of local anesthetic. The tract was gently dilated with a hemostat. With gentle traction, the PICC line was removed from the arm. Pressure was held on the insertion site for several minutes. A fluoroscopic image at the end of the procedure showed no retained foreign body. The patient tolerated the procedure well and was transferred to recovery room in satisfactory condition. I, Dr. Mendoza was present and scrubed for the entire procedure. [facility]
[2016-08-24] MEDS: CEFTRIAXONE SOD INJ 2,000 MG in DEXTROSE 5% 50ML 50 ML IV SCH (14:12)
--- NOTE | 2016-08-24 16:20 | Infectious Disease Progress Nt ---
Progress Note Date of Service Aug 24, 2016. Subjective Pt evaluation today including: conversation w/ patient, conversation w/ family , physical exam, chart review, lab review, review of studies, conversation w/ computer systems consultant (Dr. Patton. ), review of inpatient medication list Patient had an attempted PICC line placement yesterday afternoon, but there were issues with placement and the line was stuck. Dr. Mendoza removed this line this afternoon. He is planning for a port placement on Monday to continue IV antibiotic therapy for this patient. The patient appears to be tolerating his new abx regimen well. He is having some mild nausea today but he has not had any diarrhea or vomiting. He is anticipating D/C to rehab in a few days. LFT's were normal. All Other Systems: Reviewed and Negative Medications Current Inpatient Medications Medications (Trade) Dose Ordered Sig/Andrei Route Start Time Stop Time Status Last Admin Dose Admin Acetaminophen (Tylenol Tab) 650 mg Q4H PRN PO 08/15/16 00:15 09/14/16 00:14 Polyethylene (Miralax Powder Packet) 17 gm DAILY PRN PO 08/15/16 00:15 09/14/16 00:14 08/18/16 09:03 17 GM Ondansetron HCl (Zofran Inj) 4 mg Q6H PRN IV 08/15/16 00:15 09/14/16 00:14 Glucose (Glucose 40% Gel) 15-30 GRAMS 15 GRAMS... UD PRN PO 08/15/16 00:15 09/14/16 00:14 Glucose (Glucose Chew Tab) 4-8 Tablets 4 Tabl... UD PRN PO 08/15/16 00:15 09/14/16 00:14 Dextrose (Dextrose 50% 50ML Syringe) 25-50ML OF 50% DW IV FOR... UD PRN IV 08/15/16 00:15 09/14/16 00:14 Glucagon (Glucagon Inj) 1 mg UD PRN SQ 08/15/16 00:15 09/14/16 00:14 Miscellaneous Information (Consult Glycemic Management Pharmacy) 1 ea DAILY PRN N/A 08/15/16 02:18 09/14/16 02:17 Acetazolamide (Diamox Tab) 250 mg BID PO 08/15/16 09:00 09/14/16 08:59 08/24/16 09:41 250 MG Calcium Acetate (Phoslo Cap) 667 mg AC PO 08/15/16 08:00 09/14/16 07:59 08/24/16 11:51 667 MG Fish Oil ([place]-3 (Purified Fish Oil) Cap) 1 gm DAILY PO 08/15/16 09:00 09/14/16 08:59 08/24/16 08:44 1 GM Folic Acid (Folvite Tab) 1 mg DAILY PO 08/15/16 09:00 09/14/16 08:59 08/24/16 08:42 1 MG Multivitamins (Multivitamin Tab) 1 tab DAILY PO 08/15/16 09:00 09/14/16 08:59 08/24/16 08:43 1 TAB Ranolazine (Ranexa ER Tab) 500 mg BID PO 08/15/16 09:00 09/14/16 08:59 08/24/16 08:45 500 MG Cholecalciferol (Vitamin D Tab) 1,000 inter.unit QAM PO 08/15/16 09:00 09/14/16 08:59 08/24/16 08:46 1,000 INTER.UNIT Citalopram Hydrobromide (celeXA TAB) 20 mg QAM PO 08/15/16 09:00 09/14/16 08:59 08/24/16 08:39 20 MG Pantoprazole Sodium (Protonix Tab) 40 mg QAM PO 08/15/16 09:00 09/14/16 08:59 08/24/16 08:45 40 MG Morphine Sulfate (MoRPHine SULFATE INJ) 2 mg Q6H PRN IV 08/15/16 15:45 08/29/16 15:44 Tramadol HCl (Ultram Tab) 50 mg Q6H PRN PO 08/15/16 15:45 09/14/16 15:44 Insulin Glargine (Lantus Solostar Pen) SEE PROTOCOL DAILY SC 08/18/16 09:00 09/17/16 08:59 Future hold 08/24/16 09:29 15 UNIT Insulin Aspart (novoLOG ASPART) SLIDING SCALE If C... ACHS SC 08/20/16 08:00 09/19/16 07:59 08/22/16 08:35 2 UNITS Heparin Sodium (Porcine) (Heparin Sq 5000 Unit/0.5ml) 5,000 unit Q12 SQ 08/21/16 21:00 09/20/16 20:59 08/24/16 09:30 5,000 UNIT Furosemide (Lasix Tab) 80 mg QAM PO 08/23/16 09:00 09/22/16 08:59 08/24/16 09:17 80 MG Warfarin Sodium (Coumadin Tab) 5 mg DAILY@16 PO 08/22/16 16:00 09/21/16 15:59 Future Hold 08/23/16 15:42 5 MG Carvedilol (Coreg Tab) 12.5 mg DAILY@0900 PO 08/23/16 09:00 09/22/16 08:59 08/24/16 09:17 12.5 MG Carvedilol 6.25 mg 6.25 mg DAILY@2100 PO 08/22/16 21:00 09/21/16 20:59 08/23/16 20:58 6.25 MG Ceftriaxone Sodium/Dextrose (Rocephin Inj/D5 50ml) 70 ml @ 100 mls/hr DAILY@1400 IV 08/23/16 14:00 10/04/16 13:59 08/24/16 14:12 100 MLS/HR Amoxicillin (Amoxil Cap) 500 mg Q12 PO 08/23/16 16:00 10/04/16 15:59 08/24/16 09:16 500 MG Rifampin (Rifadin Cap) 300 mg BID PO 08/23/16 21:00 10/04/16 20:59 08/24/16 09:41 300 MG Miscellaneous Information 1 ea UD PRN N/A 08/23/16 16:15 09/22/16 16:14 Enteral Nutritional Formula (Boost Glucose Control) 1 can BIDM PO 08/24/16 17:45 09/23/16 17:44 Objective Vital Signs Date Time Temp Pulse Resp B/P Pulse Ox O2 Delivery O2 Flow Rate FiO2 08/24/16 13:56 36.6 72 16 125/54 100 Room Air 08/24/16 11:50 36.5 16 113/50 99 Room Air 08/24/16 09:15 82 113/50 08/24/16 07:59 99 Room Air 08/24/16 07:51 36.5 62 16 83/42 99 Room Air 08/24/16 07:40 Room Air 08/23/16 23:25 Room Air 08/23/16 22:56 37.0 90 16 131/65 99 Room Air 08/23/16 21:33 36.5 62 167/79 08/23/16 20:54 62 167/79 Physical Exam General Appearance: WD/WN, no apparent distress Eyes: normal inspection, sclerae normal ENT: hearing grossly normal Neck: supple, trachea midline Respiratory/Chest: no respiratory distress, no accessory muscle use Cardiovascular: regular rate, rhythm Extremities: + pertinent finding (note some continued darkened area on the right heel. No surrounding erythema. Some mild drainage. Note beads in wound. ) Neurologic/Psychiatric: alert, normal mood/affect Skin: normal color, warm/dry, no rash Laboratory Results RUN DATE: 08/24/16 [facility] LAB PAGE 1 RUN TIME: 1256 Specimen Inquiry PATIENT: SAM JONES LOC: W U # : [id number] AGE/SX: 76/M ROOM: [facility] System REG : 08/15/[address]: Ashley Patton M.D. : 1940 BED: 1 DIS : STATUS: ADM IN TLOC: SPEC #: [id number] MYRTLE: 08/19/16-UNK STATUS: COMP REQ #: [id number] RECD: 08/19/[address] [facility] [address]: Marco A Moya MD SOURCE: ULCER ENTR: 08/19/[address] [facility] [address]: Shruthi Whitaker MD SPDESC: FOOT RIGHT Onur Blandon, Karlie Swanson,Lauren Quinteros MD , Kizzy Padgett M.D. ORDERED: AER/WILL CULTSMR COMMENTS: CULTURE #1 RIGHT HEEL ULCER Procedure Result Verified Site GRAM STAIN Final 08/20/16-713 RESULT RARE WBCs SEEN RARE GRAM POSITIVE COCCI OR AER/WILL CULT Final 08/24/16-1256 Organism 1 STAPHYLOCOCCUS AUREUS QUANITY FEW SENS SENSITIVITY TO FOLLOW ANAS NO ANAEROBES ISOLATED. +MIXWOUND PLUS LOW COUNTS OF PROBABLE SKIN JIM Organism 2 ENTEROCOCCUS FAECALIS QUANITY RARE SENS SENSITIVITY TO FOLLOW Organism 3 CORYNEBACTERIUM SPECIES QUANITY FEW SENS NO SENSITIVITY TO FOLLOW STAPH AUR E FAECALIS M.I.C. RX M.I.C. RX --------- ------ --------- ------ TRIMET/SULFA <=0.5/9.5 S AMPICILLIN <=2 S * OXACILLIN 0.5 S GENT SYNERGY <=500 S VANCOMYCIN 2 S 2 S PENICILLIN 2 S ERYTHROMYCIN <=0.5 S TETRACYCLINE <=4 S CLINDAMYCIN <=0.5 S DAPTOMYCIN <=0.5 S 1 S STREP SYNERGY >1000 R ENTEROCOCCUS FAECALIS: POSITIVE COMBO 33 Streptomycin Synergy Screen R Gentamicin Synergy Screen S CONTINUED ON NEXT PAGE RUN DATE: 08/24/16 [facility] PAGE 2 RUN TIME: 1256 Specimen Inquiry SPEC: [id number] PATIENT: SAM JONES [id number] ( Continued) Procedure Result Verified Site OR AER/WILL MAURICIO Final (continued) 08/24/16-1256 1. STAPHYLOCOCCUS AUREUS Target Route Dose RX AB Cost M.I.C. IQ ------ ----- ------ -- ------ -------- - ------ TRIMET/SULFA S <=0.5/ 9.5 * OXACILLIN S 0.5 VANCOMYCIN S 2 ERYTHROMYCIN S <=0.5 TETRACYCLINE S <=4 CLINDAMYCIN S <=0.5 DAPTOMYCIN S <=0.5 2. ENTEROCOCCUS FAECALIS Target Route Dose RX AB Cost M.I.C. IQ ------ ----- ------ -- ------ -------- - ------ AMPICILLIN S <=2 GENT SYNERGY S <=500 VANCOMYCIN S 2 PENICILLIN S 2 DAPTOMYCIN S 1 STREP SYNERGY R >1000 Streptomycin Synergy Screen R Gentamicin Synergy Screen S S = SENSITIVE I = INTERMEDIATE R = RESISTANT Last 24 Hours Test 08/23/16 16:54 08/23/16 20:44 08/24/16 06:06 08/24/16 08:28 Bedside Glucose 97 mg/dl 74 mg/dl 129 mg/dl White Blood Count 11.33 K/uL Red Blood Count 3.02 M/uL Hemoglobin 9.6 g/dL Hematocrit 30.2 % Mean Corpuscular Volume 100.0 fL Mean Corpuscular Hemoglobin 31.8 pg Mean Corpuscular Hemoglobin Concent 31.8 g/dl RDW Standard Deviation 61.5 fL RDW Coefficient of Variation 16.7 % Platelet Count 282 K/uL Mean Platelet Volume 9.2 fL Test 08/24/16 09:26 08/24/16 11:58 Prothrombin Time 32.4 SECONDS Prothromb Time International Ratio 2.9 Bedside Glucose 118 mg/dl Assessment and Plan Patient with right distal Achilles tendon rupture, overlying wound, and calcaneal osteomyelitis. Surgical cultures growing MSSA and Enterococcus which is sensitive to ampicillin. Currently the patient is on IV Ceftriaxone 2 g daily , PO Amoxicillin 500 mg TID, and PO Rifampin 300 mg BID. The patient will require 6 weeks of antibiotic therapy. Anticipating port placement on Monday for continued IV therapy. We will follow. Case reviewed and agree with above assessment, continue abx and follow. for port
[2016-08-24] MEDS: BOOST GLUCOSE CONTROL PO SCH (17:26)
[2016-08-24] MEDS ORDERED: MICONAZOLE NITRATE POWDER 43 GM EXT PRN (18:45)
[2016-08-24] MEDS ORDERED: NURSING DECISION MEDICATION ORDER SCH (18:45)
--- NOTE | 2016-08-24 19:19 | Progress Note ---
Internal Med Progress Note Date of Service: Aug 24, 2016. Provider Documentation: SUBJECTIVE: PICC line removed by Dr Mendoza today plan for A Port placement on Monday for continued IV abx therapy pt denies of any pain or discomfort no fever or chills OBJECTIVE: Vital Signs-as noted below Exam: General-elderly male , baseline dementia ,no apparent distress Eyes-sclera non icteric ENT-NAD Neck-no JVD Lungs-diminished Heart-regular Abdomen-soft, non tender Extremities-rt foot s/p I&D , surgical bandage present , Rt upper arm non functioning PICC line -unable to be take out by IV team Neuro-no focal neurological deficit Lab data as noted below. ASSESSMENT & PLAN: Calcaneus Osteomyelitis/NON HEALING RT HEEL ULCER - s/p Debridement 08/19/16 - blood cultures :negative wound culture: Staph aureus , MSSS GRAM STAIN Final 08/20/16-713 RESULT RARE WBCs SEEN RARE GRAM POSITIVE COCCI OR AER/WILL CULT Final 08/24/16-1256 Organism 1 STAPHYLOCOCCUS AUREUS QUANITY FEW SENS SENSITIVITY TO FOLLOW ANAS NO ANAEROBES ISOLATED. +MIXWOUND PLUS LOW COUNTS OF PROBABLE SKIN JIM Organism 2 ENTEROCOCCUS FAECALIS QUANITY RARE SENS SENSITIVITY TO FOLLOW Organism 3 CORYNEBACTERIUM SPECIES QUANITY FEW SENS NO SENSITIVITY TO FOLLOW STAPH AUR E FAECALIS M.I.C. RX M.I.C. RX --------- ------ --------- ------ TRIMET/SULFA <=0.5/9.5 S AMPICILLIN <=2 S * OXACILLIN 0.5 S GENT SYNERGY <=500 S VANCOMYCIN 2 S 2 S PENICILLIN 2 S ERYTHROMYCIN <=0.5 S TETRACYCLINE <=4 S CLINDAMYCIN <=0.5 S DAPTOMYCIN <=0.5 S 1 S STREP SYNERGY >1000 R ENTEROCOCCUS FAECALIS: POSITIVE COMBO 33 Streptomycin Synergy Screen R Gentamicin Synergy Screen S bone culture: Staph, Strep echo: possible vegetation on mitral valve leaflet will need at least 6 weeks antibiotics unable to place PICC line today/resistance noted after 30 cm , unable to remove line as got trapped at last 5 cm ext Vascular surgery consulted for assistance in removal of PICC -appreciate input PICC line removed per IV team -pt is not a candidate for PICC /midline , had prior failed fistula in rt upper arm plan to put A port by Dr Mendoza on Monday ID consulted , appreciate recommendations Abx regimen L IV ceftriaxone 2 g daily and p.o. amoxicillin 500 mg t.i.d./ Rifampin 300 mg PO BID -for additional coverage of staph with likely vegetation. patient will require 6 weeks of antibiotic therapy. A port will be placed on Monday for residential ABx tx with IV Rocephin Mitral valve vegetation : - possible mitral valve vegetation on the mitral valve seen in transthoracic ECHO prior hx of Aortic and Mitral valve replacement (Bioprosthetic) blood cultures drawn after antibiotics started consulted Desktop Support Engineer--> poor surgical candidate for Mitral valve replacement recommend completing 6 weeks of antibiotics conservative approach repeat ECHO 08/23/2016 : There is a bioprosthetic mitral valve. Bioprosthesis leaflets are thickened but move well. Prevoiusly noted mobile density on the mitral valve prosthesis is less apparent on the current study, coannot exclude small vegetation The prosthetic mitral valve is well-seated. There is trace mitral regurgitation. There is a bioprosthetic aortic valve. The prosthetic aortic valve appears to open well. There is no aortic valvular vegetation. ESRD on peritoneal dialysis -consulted Nephrology Bradycardia: Digoxin discontinued reduced PM dose of Coreg 6.25 mg /cont AM dose of Coreg 12.5 mg daily CAD s/p CABG - hold Lisinopril for marginal BP -on Ranexa - on Aspirin Atrial fibrillation - in sinus rhythm, HR controlled - Coreg dose adjusted and Digoxin-D/ed for bradycardia - on Coumadin monitor INR Chronic systolic heart failure EF 35% -40 % - on Lasix 80mg daily monitor volume status Anemia-likely multifactorial but 2/2 mainly to ESRD - on Procrit. - given 2 units PRBC Hg stable at ~9 monitor Severe PAD -s/p recent vascular intervention last week s/p 3 stents placed. on Aspirin DM II -ISS/Lantus, glycemic pharmacy consult placed DVT prop - on Coumadin FULL CODE DISPOSITION : will likely need Rehab/SNF- Social service consulted for discharge planning Vital Signs: Date Time Temp Pulse Resp B/P Pulse Ox O2 Delivery O2 Flow Rate FiO2 08/24/16 19:30 Room Air 08/24/16 13:56 36.6 72 16 125/54 100 Room Air 08/24/16 11:50 36.5 16 113/50 99 Room Air 08/24/16 09:15 82 113/50 08/24/16 07:59 99 Room Air 08/24/16 07:51 36.5 62 16 83/42 99 Room Air 08/24/16 07:40 Room Air 08/24/16 05:40 37.0 91 17 89/52 98 Room Air 08/23/16 23:25 Room Air 08/23/16 22:56 37.0 90 16 131/65 99 Room Air 08/23/16 21:33 36.5 62 167/79 08/23/16 20:54 62 167/79 Lab Results: Results Past 24 Hours Test 08/24/16 06:06 08/24/16 08:28 08/24/16 09:26 08/24/16 11:58 Range/Units White Blood Count 11.33 4.8-10.8 K/uL Red Blood Count 3.02 4.7-6.1 M/uL Hemoglobin 9.6 14.0-18.0 g/dL Hematocrit 30.2 42-52 % Mean Corpuscular Volume 100.0 80-100 fL Mean Corpuscular Hemoglobin 31.8 25-34 pg Mean Corpuscular Hemoglobin Concent 31.8 32-36 g/dl RDW Standard Deviation 61.5 36.4-46.3 fL RDW Coefficient of Variation 16.7 11.5-14.5 % Platelet Count 282 130-400 K/uL Mean Platelet Volume 9.2 7.4-10.4 fL Bedside Glucose 129 118 70-99 mg/dl Prothrombin Time 32.4 9.0-12.0 SECONDS Prothromb Time International Ratio 2.9 0.9-1.1 Test 08/24/16 16:58 08/24/16 20:30 Range/Units Bedside Glucose 157 139 70-99 mg/dl
[2016-08-24] MEDS: CARVEDILOL 6.25 MG TAB PO SCH (20:41)
[2016-08-24] MEDS: AMOXICILLIN 250 MG CAP PO SCH (20:41)
[2016-08-25] VITALS (8 sets, daily range): BP systolic 95–132; BP diastolic 48–82; PULSE 68–91; TEMP 36.6–37; O2SAT 96–98
[2016-08-25 06:32] LABS: INR 3.2 (0.9-1.1); PROTHROMBIN TIME (PATIENT) 35.9 SECONDS (9.0-12.0)
[2016-08-25] MEDS: AMOXICILLIN 250 MG CAP PO SCH ×2 (08:51→20:33)
[2016-08-25] MEDS: CALCIUM ACETATE 667MG GELCAP PO SCH ×3 (08:51→17:19)
[2016-08-25] MEDS: CITALOPRAM 20 MG TAB PO SCH (08:52)
[2016-08-25] MEDS: CARVEDILOL 12.5 MG TAB PO SCH (08:52)
[2016-08-25] MEDS: AcetaZOLAMIDE 250 MG TAB PO SCH ×2 (08:53→20:34)
[2016-08-25] MEDS: FUROSEMIDE 80 MG TAB PO SCH (08:57)
[2016-08-25] MEDS: OMEGA-3 (PURIFIED FISH OIL) 1 GM CAP PO SCH (08:58)
[2016-08-25] MEDS: PANTOprazole SOD 40 MG TAB PO SCH (08:58)
[2016-08-25] MEDS: MULTIVITAMIN TAB PO SCH (08:58)
[2016-08-25] MEDS: CHOLECALCIFEROL 1000 INTER.UNIT TAB PO SCH (08:59)
[2016-08-25] MEDS: RIFAMPIN 300 MG CAP PO SCH ×2 (08:59→20:34)
[2016-08-25] MEDS: RANOLAZINE 500 MG ER TAB PO SCH ×2 (08:59→20:34)
[2016-08-25] MEDS: INSULIN ASPART 100 UNITS/ML 3 ML PEN SC SCH ×5 (09:16→23:53)
[2016-08-25] MEDS: INSULIN GLARGINE SOLOSTAR 100 UNITS/ML 3 ML PEN SC SCH (09:18)
[2016-08-25] MEDS: BOOST GLUCOSE CONTROL PO SCH ×2 (09:29→17:45)
--- NOTE | 2016-08-25 09:52 | Nephrology Progress Note ---
Nephrology Progress Note Date of Service: Aug 25, 2016. 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 picc line was not functioning well. had picc line removed. for infusaport placement tomorrow. pt without complaints. Objective Date Time Temp Pulse Resp B/P Pulse Ox O2 Delivery O2 Flow Rate FiO2 08/25/16 07:21 37.0 74 16 132/82 96 Nasal Cannula 2.0 08/25/16 07:16 36.6 91 16 100/55 98 Room Air 08/25/16 03:42 36.9 68 08/24/16 23:30 36.9 60 18 110/66 94 Room Air 08/24/16 20:46 73 118/58 08/24/16 19:30 Room Air 08/24/16 13:56 36.6 72 16 125/54 100 Room Air 08/24/16 11:50 36.5 16 113/50 99 Room Air Physical Exam: General-aaox3 Eyes-no scleral icterus ENT-mmm Neck-supple Lungs-cta Heart-regular Abdomen-pd catheter in place, soft, nontender Extremities-right heel ulcer-wrapped Neuro-nonfocal Current Inpatient Medications Medications (Trade) Dose Ordered Sig/Andrei Route Start Time Stop Time Status Last Admin Dose Admin Acetaminophen (Tylenol Tab) 650 mg Q4H PRN PO 08/15/16 00:15 09/14/16 00:14 Polyethylene (Miralax Powder Packet) 17 gm DAILY PRN PO 08/15/16 00:15 09/14/16 00:14 08/18/16 09:03 17 GM Ondansetron HCl (Zofran Inj) 4 mg Q6H PRN IV 08/15/16 00:15 09/14/16 00:14 Glucose (Glucose 40% Gel) 15-30 GRAMS 15 GRAMS... UD PRN PO 08/15/16 00:15 09/14/16 00:14 Glucose (Glucose Chew Tab) 4-8 Tablets 4 Tabl... UD PRN PO 08/15/16 00:15 09/14/16 00:14 Dextrose (Dextrose 50% 50ML Syringe) 25-50ML OF 50% DW IV FOR... UD PRN IV 08/15/16 00:15 09/14/16 00:14 Glucagon (Glucagon Inj) 1 mg UD PRN SQ 08/15/16 00:15 09/14/16 00:14 Miscellaneous Information (Consult Glycemic Management Pharmacy) 1 ea DAILY PRN N/A 08/15/16 02:18 09/14/16 02:17 Acetazolamide (Diamox Tab) 250 mg BID PO 08/15/16 09:00 09/14/16 08:59 08/25/16 08:53 250 MG Calcium Acetate (Phoslo Cap) 667 mg AC PO 08/15/16 08:00 09/14/16 07:59 08/25/16 08:51 667 MG Fish Oil ([place]-3 (Purified Fish Oil) Cap) 1 gm DAILY PO 08/15/16 09:00 09/14/16 08:59 08/25/16 08:58 1 GM Folic Acid (Folvite Tab) 1 mg DAILY PO 08/15/16 09:00 09/14/16 08:59 08/25/16 08:53 1 MG Multivitamins (Multivitamin Tab) 1 tab DAILY PO 08/15/16 09:00 09/14/16 08:59 08/25/16 08:58 1 TAB Ranolazine (Ranexa ER Tab) 500 mg BID PO 08/15/16 09:00 09/14/16 08:59 08/25/16 08:59 500 MG Cholecalciferol (Vitamin D Tab) 1,000 inter.unit QAM PO 08/15/16 09:00 09/14/16 08:59 08/25/16 08:59 1,000 INTER.UNIT Citalopram Hydrobromide (celeXA TAB) 20 mg QAM PO 08/15/16 09:00 09/14/16 08:59 08/25/16 08:52 20 MG Pantoprazole Sodium (Protonix Tab) 40 mg QAM PO 08/15/16 09:00 09/14/16 08:59 08/25/16 08:58 40 MG Morphine Sulfate (MoRPHine SULFATE INJ) 2 mg Q6H PRN IV 08/15/16 15:45 08/29/16 15:44 Tramadol HCl (Ultram Tab) 50 mg Q6H PRN PO 08/15/16 15:45 09/14/16 15:44 Insulin Glargine (Lantus Solostar Pen) SEE PROTOCOL DAILY SC 08/18/16 09:00 09/17/16 08:59 Future hold 08/25/16 09:18 15 UNIT Insulin Aspart (novoLOG ASPART) SLIDING SCALE If C... ACHS SC 08/20/16 08:00 09/19/16 07:59 08/25/16 09:16 3 UNITS Furosemide (Lasix Tab) 80 mg QAM PO 08/23/16 09:00 09/22/16 08:59 08/25/16 08:57 80 MG Warfarin Sodium (Coumadin Tab) 5 mg DAILY@16 PO 08/22/16 16:00 09/21/16 15:59 Future Hold 08/23/16 15:42 5 MG Carvedilol (Coreg Tab) 12.5 mg DAILY@0900 PO 08/23/16 09:00 09/22/16 08:59 08/25/16 08:52 12.5 MG Carvedilol 6.25 mg 6.25 mg DAILY@2100 PO 08/22/16 21:00 09/21/16 20:59 08/24/16 20:41 6.25 MG Ceftriaxone Sodium/Dextrose (Rocephin Inj/D5 50ml) 70 ml @ 100 mls/hr DAILY@1400 IV 08/23/16 14:00 10/04/16 13:59 08/24/16 14:12 100 MLS/HR Rifampin (Rifadin Cap) 300 mg BID PO 08/23/16 21:00 10/04/16 20:59 08/25/16 08:59 300 MG Miscellaneous Information 1 ea UD PRN N/A 08/23/16 16:15 09/22/16 16:14 Enteral Nutritional Formula (Boost Glucose Control) 1 can BIDM PO 08/24/16 17:45 09/23/16 17:44 08/25/16 09:29 1 CAN Amoxicillin (Amoxil Cap) 250 mg BID PO 08/24/16 21:00 10/04/16 15:59 08/25/16 08:51 250 MG Miconazole Nitrate (Desenex Powder) 1 appln UD PRN EXT 08/24/16 18:45 09/23/16 18:44 Last 24 Hours Test 08/24/16 11:58 08/24/16 16:58 08/24/16 20:30 08/25/16 05:57 Bedside Glucose 118 mg/dl 157 mg/dl 139 mg/dl Prothrombin Time 35.9 SECONDS Prothromb Time International Ratio 3.2 Test 08/25/16 08:19 Bedside Glucose 121 mg/dl Assessment & Plan ESRD-volume status appropriate. continue same rx of one green and one yellow. Anemia of renal failure-continue procrit to keep hg levels between 10 and 11. given three doses so far in the hospital. VERO: continue phoslo and vitamin d. follow phos levels intermittently.
--- NOTE | 2016-08-25 11:42 | Infectious Disease Progress Nt ---
Progress Note Date of Service Aug 25, 2016. Subjective Pt evaluation today including: conversation w/ patient, physical exam, chart review, lab review, review of studies, review of inpatient medication list INR noted to be 3.2 this morning. The patient continues on IV Ceftriaxone, Rifampin, and Amoxicillin. He is tolerating these medications well. He is anticipating port placement tomorrow and discharge to rehab after. All Other Systems: Reviewed and Negative Medications Current Inpatient Medications Medications (Trade) Dose Ordered Sig/Andrei Route Start Time Stop Time Status Last Admin Dose Admin Acetaminophen (Tylenol Tab) 650 mg Q4H PRN PO 08/15/16 00:15 09/14/16 00:14 Polyethylene (Miralax Powder Packet) 17 gm DAILY PRN PO 08/15/16 00:15 09/14/16 00:14 08/18/16 09:03 17 GM Ondansetron HCl (Zofran Inj) 4 mg Q6H PRN IV 08/15/16 00:15 09/14/16 00:14 Glucose (Glucose 40% Gel) 15-30 GRAMS 15 GRAMS... UD PRN PO 08/15/16 00:15 09/14/16 00:14 Glucose (Glucose Chew Tab) 4-8 Tablets 4 Tabl... UD PRN PO 08/15/16 00:15 09/14/16 00:14 Dextrose (Dextrose 50% 50ML Syringe) 25-50ML OF 50% DW IV FOR... UD PRN IV 08/15/16 00:15 09/14/16 00:14 Glucagon (Glucagon Inj) 1 mg UD PRN SQ 08/15/16 00:15 09/14/16 00:14 Miscellaneous Information (Consult Glycemic Management Pharmacy) 1 ea DAILY PRN N/A 08/15/16 02:18 09/14/16 02:17 Acetazolamide (Diamox Tab) 250 mg BID PO 08/15/16 09:00 09/14/16 08:59 08/25/16 08:53 250 MG Calcium Acetate (Phoslo Cap) 667 mg AC PO 08/15/16 08:00 09/14/16 07:59 08/25/16 08:51 667 MG Fish Oil ([place]-3 (Purified Fish Oil) Cap) 1 gm DAILY PO 08/15/16 09:00 09/14/16 08:59 08/25/16 08:58 1 GM Folic Acid (Folvite Tab) 1 mg DAILY PO 08/15/16 09:00 09/14/16 08:59 08/25/16 08:53 1 MG Multivitamins (Multivitamin Tab) 1 tab DAILY PO 08/15/16 09:00 09/14/16 08:59 08/25/16 08:58 1 TAB Ranolazine (Ranexa ER Tab) 500 mg BID PO 08/15/16 09:00 09/14/16 08:59 08/25/16 08:59 500 MG Cholecalciferol (Vitamin D Tab) 1,000 inter.unit QAM PO 08/15/16 09:00 09/14/16 08:59 08/25/16 08:59 1,000 INTER.UNIT Citalopram Hydrobromide (celeXA TAB) 20 mg QAM PO 08/15/16 09:00 09/14/16 08:59 08/25/16 08:52 20 MG Pantoprazole Sodium (Protonix Tab) 40 mg QAM PO 08/15/16 09:00 09/14/16 08:59 08/25/16 08:58 40 MG Morphine Sulfate (MoRPHine SULFATE INJ) 2 mg Q6H PRN IV 08/15/16 15:45 08/29/16 15:44 Tramadol HCl (Ultram Tab) 50 mg Q6H PRN PO 08/15/16 15:45 09/14/16 15:44 Insulin Glargine (Lantus Solostar Pen) SEE PROTOCOL DAILY SC 08/18/16 09:00 09/17/16 08:59 Future hold 08/25/16 09:18 15 UNIT Insulin Aspart (novoLOG ASPART) SLIDING SCALE If C... ACHS SC 08/20/16 08:00 09/19/16 07:59 08/25/16 09:16 3 UNITS Furosemide (Lasix Tab) 80 mg QAM PO 08/23/16 09:00 09/22/16 08:59 08/25/16 08:57 80 MG Warfarin Sodium (Coumadin Tab) 5 mg DAILY@16 PO 08/22/16 16:00 09/21/16 15:59 Future Hold 08/23/16 15:42 5 MG Carvedilol (Coreg Tab) 12.5 mg DAILY@0900 PO 08/23/16 09:00 09/22/16 08:59 08/25/16 08:52 12.5 MG Carvedilol 6.25 mg 6.25 mg DAILY@2100 PO 08/22/16 21:00 09/21/16 20:59 08/24/16 20:41 6.25 MG Ceftriaxone Sodium/Dextrose (Rocephin Inj/D5 50ml) 70 ml @ 100 mls/hr DAILY@1400 IV 08/23/16 14:00 10/04/16 13:59 08/24/16 14:12 100 MLS/HR Rifampin (Rifadin Cap) 300 mg BID PO 08/23/16 21:00 10/04/16 20:59 08/25/16 08:59 300 MG Miscellaneous Information 1 ea UD PRN N/A 08/23/16 16:15 09/22/16 16:14 Enteral Nutritional Formula (Boost Glucose Control) 1 can BIDM PO 08/24/16 17:45 09/23/16 17:44 08/25/16 09:29 1 CAN Amoxicillin (Amoxil Cap) 250 mg BID PO 08/24/16 21:00 10/04/16 15:59 08/25/16 08:51 250 MG Miconazole Nitrate (Desenex Powder) 1 appln UD PRN EXT 08/24/16 18:45 09/23/16 18:44 Objective Vital Signs Date Time Temp Pulse Resp B/P Pulse Ox O2 Delivery O2 Flow Rate FiO2 08/25/16 07:21 37.0 74 16 132/82 96 Nasal Cannula 2.0 08/25/16 07:16 36.6 91 16 100/55 98 Room Air 08/25/16 03:42 36.9 68 08/24/16 23:30 36.9 60 18 110/66 94 Room Air 08/24/16 20:46 73 118/58 08/24/16 19:30 Room Air 08/24/16 13:56 36.6 72 16 125/54 100 Room Air 08/24/16 11:50 36.5 16 113/50 99 Room Air Physical Exam General Appearance: WD/WN, no apparent distress Eyes: normal inspection, sclerae normal ENT: hearing grossly normal Neck: supple, trachea midline Respiratory/Chest: chest non-tender, lungs clear, no respiratory distress, no accessory muscle use Cardiovascular: + systolic murmur, + irregularly irregular Abdomen: normal bowel sounds, non tender, soft Extremities: + pertinent finding (dressing on right heel) Neurologic/Psychiatric: alert, normal mood/affect Skin: warm/dry, no rash Laboratory Results Last 24 Hours Test 08/24/16 11:58 08/24/16 16:58 08/24/16 20:30 08/25/16 05:57 Bedside Glucose 118 mg/dl 157 mg/dl 139 mg/dl Prothrombin Time 35.9 SECONDS Prothromb Time International Ratio 3.2 Test 08/25/16 08:19 Bedside Glucose 121 mg/dl Assessment and Plan Patient with right distal Achilles tendon rupture, overlying wound, calcaneal osteomyelitis, 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 Surgical cultures growing MSSA and Enterococcus which is sensitive to ampicillin. Currently the patient is on IV Ceftriaxone 2 g daily, PO Amoxicillin 500 mg TID, and PO Rifampin 300 mg BID. He will need to complete 6 weeks of IV therapy and likely continued antibiotic therapy after discontinuation of IV's. Awaiting port placement. We will follow. Case reviewed and agree with above assessment, continue abx, for port.
--- NOTE | 2016-08-25 13:40 | Pharmacy Progress Note ---
Glycemic: Assessment & Plan Date of Service Aug 25, 2016. Assessment & Plan Test 08/24/16 16:58 08/24/16 20:30 08/25/16 08:19 08/25/16 12:00 Bedside Glucose 157 mg/dl (70-99) 139 mg/dl (70-99) 121 mg/dl (70-99) 142 mg/dl (70-99) The patient is currently receiving 17 units of insulin per day. BSGs ranging 121 - 157 mg/dl over the past 24hrs. NPO after midnight tonight for aport placement tomorrow, then likely DC with 6 weeks antibiotics. PICC removed yesterday. * Basal insulin: HOLD LANTUS tomorrow morning for NPO Status, will give supplemental dose in afternoon if needed, then resume: * Lantus qAM per scale: 10 units for BSG below 120 mg/dl; 15 units for BSG 120-180 mg/dl; 20 units for BSG above 180 mg/d * Correctional Insulin: Novolog Correction per scale ACHS Goal Range: Low 110 mg/dL - High 140 mg/dL Correction Factor: 30 mg/dL/unit * Prandial insulin: Per carb ratio of 1 unit per 10 grams CHO consumed Pharmacy will continue to monitor patient daily and write orders per [facility] inpatient glycemic control protocol. Thanks. * Please note that the plan above was derived based on current level of insulin resistance and hospital stress. These recommendations are appropriate for inpatient admission only. Plan of care upon discharge will need to be reassessed to avoid potential outpatient hypo/hyperglycemia.
[2016-08-25] MEDS: CEFTRIAXONE SOD INJ 2,000 MG in DEXTROSE 5% 50ML 50 ML IV SCH (13:45)
--- NOTE | 2016-08-25 15:17 | Progress Note ---
Internal Med Progress Note Date of Service: Aug 25, 2016. Provider Documentation: SUBJECTIVE: sitting on chair , getting peritoneal dialysis complains of pain on bottoms no pain on rt foot , bandage present OBJECTIVE: Vital Signs-as noted below Exam: General-elderly male , baseline dementia ,no apparent distress Eyes-sclera non icteric ENT-NAD Neck-no JVD Lungs-diminished Heart-regular Abdomen-soft, non tender Extremities-rt foot s/p I&D , surgical bandage present Neuro-no focal neurological deficit Lab data as noted below. ASSESSMENT & PLAN: Calcaneus Osteomyelitis/NON HEALING RT HEEL ULCER - s/p Debridement 08/19/16 - blood cultures :negative wound culture: Staph aureus , MSSS/Corynebacterium /Enterococcus CULTURE FROM BONE SPECIMEN : identical GRAM STAIN Final 08/20/16-713 RESULT RARE WBCs SEEN RARE GRAM POSITIVE COCCI OR AER/WILL CULT Final 08/24/16-1256 Organism 1 STAPHYLOCOCCUS AUREUS QUANITY FEW SENS SENSITIVITY TO FOLLOW ANAS NO ANAEROBES ISOLATED. +MIXWOUND PLUS LOW COUNTS OF PROBABLE SKIN JIM Organism 2 ENTEROCOCCUS FAECALIS QUANITY RARE SENS SENSITIVITY TO FOLLOW Organism 3 CORYNEBACTERIUM SPECIES QUANITY FEW SENS NO SENSITIVITY TO FOLLOW STAPH AUR E FAECALIS M.I.C. RX M.I.C. RX --------- ------ --------- ------ TRIMET/SULFA <=0.5/9.5 S AMPICILLIN <=2 S * OXACILLIN 0.5 S GENT SYNERGY <=500 S VANCOMYCIN 2 S 2 S PENICILLIN 2 S ERYTHROMYCIN <=0.5 S TETRACYCLINE <=4 S CLINDAMYCIN <=0.5 S DAPTOMYCIN <=0.5 S 1 S STREP SYNERGY >1000 R ENTEROCOCCUS FAECALIS: POSITIVE COMBO 33 Streptomycin Synergy Screen R Gentamicin Synergy Screen S bone culture: Staph, Strep echo: possible vegetation on mitral valve leaflet will need at least 6 weeks antibiotics unable to place PICC line today/resistance noted after 30 cm , unable to remove line as got trapped at last 5 cm ext Vascular surgery consulted for assistance in removal of PICC -appreciate input PICC line removed per IV team -pt is not a candidate for PICC /midline , had prior failed fistula in rt upper arm plan to put A port by Dr Mendoza on Monday ID consulted , appreciate recommendations Abx regimen L IV ceftriaxone 2 g daily and p.o. amoxicillin 500 mg t.i.d./ Rifampin 300 mg PO BID -for additional coverage of staph with likely vegetation. patient will require 6 weeks of antibiotic therapy. A port will be placed on Monday for prison ABx tx with IV Rocephin Mitral valve vegetation : - possible mitral valve vegetation on the mitral valve seen in transthoracic ECHO prior hx of Aortic and Mitral valve replacement (Bioprosthetic) blood cultures drawn after antibiotics started consulted Foster Winder--> poor surgical candidate for Mitral valve replacement recommend completing 6 weeks of antibiotics conservative approach repeat ECHO 08/23/2016 : There is a bioprosthetic mitral valve. Bioprosthesis leaflets are thickened but move well. Previously noted mobile density on the mitral valve prosthesis is less apparent on the current study, coannot exclude small vegetation The prosthetic mitral valve is well-seated. There is trace mitral regurgitation. There is a bioprosthetic aortic valve. The prosthetic aortic valve appears to open well. There is no aortic valvular vegetation. ESRD on peritoneal dialysis - Nephrology following cont Peritoneal dialysis Bradycardia: Digoxin discontinued reduced PM dose of Coreg 6.25 mg /cont AM dose of Coreg 12.5 mg daily CAD s/p CABG - hold Lisinopril for marginal BP -on Ranexa - on Aspirin Atrial fibrillation - in sinus rhythm, HR controlled - Coreg dose adjusted and Digoxin-D/ed for bradycardia - Coumadin on hold for elevated INR monitor INR Chronic systolic heart failure EF 35% -40 % - on Lasix 80mg daily monitor volume status Anemia-likely multifactorial but 2/2 mainly to ESRD - on Procrit. - given 2 units PRBC Hg stable at ~9 monitor Severe PAD -s/p recent vascular intervention last week s/p 3 stents placed. on Aspirin DM II -ISS/Lantus, glycemic pharmacy consult placed DVT prop - on Coumadin FULL CODE DISPOSITION : will likely need Rehab/SNF- referral made for [facility] scheduled to have A -port placement Tomorrow possible transfer to [facility] over weekend Social service consulted for discharge planning Vital Signs: Date Time Temp Pulse Resp B/P Pulse Ox O2 Delivery O2 Flow Rate FiO2 08/25/16 15:12 36.6 89 16 106/64 98 Room Air 08/25/16 09:30 Room Air 08/25/16 07:21 37.0 74 16 132/82 96 Nasal Cannula 2.0 08/25/16 07:16 36.6 91 16 100/55 98 Room Air 08/25/16 03:42 36.9 68 08/24/16 23:30 36.9 60 18 110/66 94 Room Air 08/24/16 20:46 73 118/58 08/24/16 19:30 Room Air Lab Results: Results Past 24 Hours Test 08/24/16 16:58 08/24/16 20:30 08/25/16 05:57 08/25/16 08:19 Range/Units Bedside Glucose 157 139 121 70-99 mg/dl Prothrombin Time 35.9 9.0-12.0 SECONDS Prothromb Time International Ratio 3.2 0.9-1.1 Test 08/25/16 12:00 Range/Units Bedside Glucose 142 70-99 mg/dl
--- NOTE | 2016-08-25 15:30 | CARDIOLOGY PROGRESS NOTE ---
DATE: 08/25/2016 DATE: 08/25/2016. SUBJECTIVE: The patient notes no complaints today. Tolerating medical therapy well. Notes no fevers, chills. Notes no worsening shortness of breath. OBJECTIVE: VITAL SIGNS: Heart rate 74, blood pressure is 132/82. NECK: There is no jugular venous distention. LUNGS: Predominantly clear. CARDIOVASCULAR EXAMINATION: Regular. There is grade 2-3/6 systolic murmur heard best at the right upper sternal border. There is no diastolic murmur. ABDOMEN: Soft. EXTREMITIES: Reveal bandaged lower extremities. DATA: Echocardiogram done on 08/23/2016 was discussed once again in detail with the patient. Repeat study demonstrated normally functioning aortic valve bioprosthesis, the mitral valve bioprosthesis was thickened but preserved mobility of the leaflets. Small vegetation was not completely excluded, but in comparison to prior study appears much less pronounced. There is a very small amount of perivalvular insufficiency, no evidence of abscess or apparent dehiscence on transthoracic study. RECOMMENDATIONS: Continue antibiotics as originally planned for a total of 6-week course due to osteomyelitis and inability to exclude vegetation on bioprosthesis. Would recommend repeating echocardiogram after antibiotic therapy is complete. Follow-up blood cultures after completion of antibiotic therapy.
[2016-08-25] MEDS: CARVEDILOL 6.25 MG TAB PO SCH (20:34)
[2016-08-25] MEDS ORDERED: NURSING DECISION MEDICATION ORDER SCH (20:45)
[2016-08-26] VITALS (10 sets, daily range): BP systolic 108–130; BP diastolic 54–75; PULSE 90–97; TEMP 36.4–36.9; O2SAT 97–99
[2016-08-26] MEDS: INSULIN ASPART 100 UNITS/ML 3 ML PEN SC SCH ×4 (05:55→22:10)
[2016-08-26 06:44] LABS: INR 2.3 (0.9-1.1); PROTHROMBIN TIME (PATIENT) 25.5 SECONDS (9.0-12.0)
--- NOTE | 2016-08-26 07:53 | Nephrology Progress Note ---
Nephrology Progress Note Date of Service: Aug 26, 2016. 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 was unable to have a picc line placed. for OR procedure today for an infusaport. needs rehab and hoping to go to [facility] since options limited for peritoneal dialysis. Objective Date Time Temp Pulse Resp B/P Pulse Ox O2 Delivery O2 Flow Rate FiO2 08/25/16 22:45 36.7 91 18 95/48 98 Room Air 08/25/16 20:36 91 121/57 08/25/16 20:34 36.6 91 121/57 08/25/16 19:05 Room Air 08/25/16 16:20 Room Air 08/25/16 15:15 36.8 89 16 106/64 08/25/16 15:12 36.6 89 16 106/64 98 Room Air 08/25/16 09:30 Room Air Physical Exam: General-aaox3 Eyes-no scleral icterus ENT-mmm Neck-supple Lungs-clear Heart-rrr Abdomen-pd catheter in place, soft, nontender Extremities-right heel ulcer-wrapped Neuro-nonfocal Current Inpatient Medications Medications (Trade) Dose Ordered Sig/Andrei Route Start Time Stop Time Status Last Admin Dose Admin Acetaminophen (Tylenol Tab) 650 mg Q4H PRN PO 08/15/16 00:15 09/14/16 00:14 Polyethylene (Miralax Powder Packet) 17 gm DAILY PRN PO 08/15/16 00:15 09/14/16 00:14 08/18/16 09:03 17 GM Ondansetron HCl (Zofran Inj) 4 mg Q6H PRN IV 08/15/16 00:15 09/14/16 00:14 Glucose (Glucose 40% Gel) 15-30 GRAMS 15 GRAMS... UD PRN PO 08/15/16 00:15 09/14/16 00:14 Glucose (Glucose Chew Tab) 4-8 Tablets 4 Tabl... UD PRN PO 08/15/16 00:15 09/14/16 00:14 Dextrose (Dextrose 50% 50ML Syringe) 25-50ML OF 50% DW IV FOR... UD PRN IV 08/15/16 00:15 09/14/16 00:14 Glucagon (Glucagon Inj) 1 mg UD PRN SQ 08/15/16 00:15 09/14/16 00:14 Miscellaneous Information (Consult Glycemic Management Pharmacy) 1 ea DAILY PRN N/A 08/15/16 02:18 09/14/16 02:17 Acetazolamide (Diamox Tab) 250 mg BID PO 08/15/16 09:00 09/14/16 08:59 08/25/16 20:34 250 MG Calcium Acetate (Phoslo Cap) 667 mg AC PO 08/15/16 08:00 09/14/16 07:59 08/25/16 17:19 667 MG Fish Oil ([place]-3 (Purified Fish Oil) Cap) 1 gm DAILY PO 08/15/16 09:00 09/14/16 08:59 08/25/16 08:58 1 GM Folic Acid (Folvite Tab) 1 mg DAILY PO 08/15/16 09:00 09/14/16 08:59 08/25/16 08:53 1 MG Multivitamins (Multivitamin Tab) 1 tab DAILY PO 08/15/16 09:00 09/14/16 08:59 08/25/16 08:58 1 TAB Ranolazine (Ranexa ER Tab) 500 mg BID PO 08/15/16 09:00 09/14/16 08:59 08/25/16 20:34 500 MG Cholecalciferol (Vitamin D Tab) 1,000 inter.unit QAM PO 08/15/16 09:00 09/14/16 08:59 08/25/16 08:59 1,000 INTER.UNIT Citalopram Hydrobromide (celeXA TAB) 20 mg QAM PO 08/15/16 09:00 09/14/16 08:59 08/25/16 08:52 20 MG Pantoprazole Sodium (Protonix Tab) 40 mg QAM PO 08/15/16 09:00 09/14/16 08:59 08/25/16 08:58 40 MG Morphine Sulfate (MoRPHine SULFATE INJ) 2 mg Q6H PRN IV 08/15/16 15:45 08/29/16 15:44 Tramadol HCl (Ultram Tab) 50 mg Q6H PRN PO 08/15/16 15:45 09/14/16 15:44 Insulin Glargine (Lantus Solostar Pen) SEE PROTOCOL DAILY SC 08/18/16 09:00 09/17/16 08:59 Future hold 08/25/16 09:18 15 UNIT Furosemide (Lasix Tab) 80 mg QAM PO 08/23/16 09:00 09/22/16 08:59 08/25/16 08:57 80 MG Warfarin Sodium (Coumadin Tab) 5 mg DAILY@16 PO 08/22/16 16:00 09/21/16 15:59 Future Hold 08/23/16 15:42 5 MG Carvedilol (Coreg Tab) 12.5 mg DAILY@0900 PO 08/23/16 09:00 09/22/16 08:59 08/25/16 08:52 12.5 MG Carvedilol 6.25 mg 6.25 mg DAILY@2100 PO 08/22/16 21:00 09/21/16 20:59 08/25/16 20:34 6.25 MG Ceftriaxone Sodium/Dextrose (Rocephin Inj/D5 50ml) 70 ml @ 100 mls/hr DAILY@1400 IV 08/23/16 14:00 10/04/16 13:59 08/25/16 13:45 100 MLS/HR Rifampin (Rifadin Cap) 300 mg BID PO 08/23/16 21:00 10/04/16 20:59 08/25/16 20:34 300 MG Miscellaneous Information 1 ea UD PRN N/A 08/23/16 16:15 09/22/16 16:14 Enteral Nutritional Formula (Boost Glucose Control) 1 can BIDM PO 08/24/16 17:45 09/23/16 17:44 08/25/16 17:45 1 CAN Amoxicillin (Amoxil Cap) 250 mg BID PO 08/24/16 21:00 10/04/16 15:59 08/25/16 20:33 250 MG Miconazole Nitrate (Desenex Powder) 1 appln UD PRN EXT 08/24/16 18:45 09/23/16 18:44 Insulin Aspart (novoLOG ASPART) SLIDING SCALE If C... Q6 SC 08/26/16 00:00 09/25/16 00:00 08/26/16 05:55 1 UNITS Last 24 Hours Test 08/25/16 08:19 08/25/16 12:00 3/9/17 17:00 08/25/16 20:19 Bedside Glucose 121 mg/dl 142 mg/dl 223 mg/dl 167 mg/dl Test 08/25/16 23:50 08/26/16 05:52 08/26/16 05:59 Bedside Glucose 195 mg/dl 147 mg/dl Prothrombin Time 25.5 SECONDS Prothromb Time International Ratio 2.3 Assessment & Plan ESRD-volume status appropriate. has been getting one green and one yellow which appears to be a good rx for him. no changes. Anemia of renal failure-continue procrit to keep hg levels between 10 and 11. to recheck cbc tomorrow. VERO: continue phoslo and vitamin d. follow phos levels intermittently.
[2016-08-26] MEDS: CALCIUM ACETATE 667MG GELCAP PO SCH ×3 (08:00→17:49)
[2016-08-26] MEDS: BOOST GLUCOSE CONTROL PO SCH ×2 (08:30→17:49)
[2016-08-26] MEDS ORDERED: BUPIVACAINE/EPINEPHRINE 0.5% MPF 1:200,000 30 ML VIAL ONE (08:56)
[2016-08-26] MEDS ORDERED: MIDAZOLAM HCL 1 MG/ML 2ML VIAL ONE (08:57)
[2016-08-26] MEDS ORDERED: FENTANYL CITRATE INJ 50 MCG/1 ML 2 ML VIAL ONE (08:57)
[2016-08-26] MEDS ORDERED: LIDOCAINE HCL 1% 20 ML VIAL ONE (08:57)
--- NOTE | 2016-08-26 09:02 | Procedure Note ---
Pre-Mod Sedation Assessment General Date of Moderate Sedation: Aug 26, 2016. Vital Signs: Vital Signs Past 12 Hours Date Time Temp Pulse Resp B/P Pulse Ox O2 Delivery O2 Flow Rate FiO2 08/26/16 07:57 36.4 94 16 130/74 99 Room Air 08/26/16 07:07 Room Air 08/25/16 22:45 36.7 91 18 95/48 98 Room Air Pre-Sedation Airway Assessment Oral Cavity: Chipped Teeth, Dentures Short Thick Neck: No Hx of Sleep Apnea: No Smoking Status: Never Smoker Mallampati Classification: Class I ASA Classification: Class II Notes The planned sedation has been discussed with the patient and consent obtained. I have identified the patient, determined the appropriateness of sedation and have assessed the patient immediately prior to the procedure. All medicine(s) and interventions are by my order.
--- NOTE | 2016-08-26 09:02 | Progress Note ---
Progress Note Date of Service Aug 26, 2016. Progress Note Patient in need of jail antibiotics. Recommended infusaport insertion. I have discussed the risks options and benefits of the procedure with the patient. The patient understands the risks options and benefits and agrees to the procedure. I have examined the patient, reviewed the History & Physical and in the interval since the performance of the History & Physical I have noted the following changes of clinical significance: No changes noted
[2016-08-26] MEDS ORDERED: MIDAZOLAM HCL 1 MG/ML 2ML VIAL IV ONE (09:31)
[2016-08-26] MEDS ORDERED: FENTANYL CITRATE INJ 50 MCG/1 ML 2 ML VIAL IV ONE (09:32)
[2016-08-26] MEDS ORDERED: LIDOCAINE HCL 1% 20 ML VIAL INJ ONE ×3 (09:33→09:44)
[2016-08-26] MEDS ORDERED: BUPIVACAINE/EPINEPHRINE 0.5% MPF 1:200,000 30 ML VIAL INJ ONE ×3 (09:33→09:44)
--- NOTE | 2016-08-26 10:08 | [facility] Post Operative Brief Note ---
Immediate Operative Summary Operative Date Aug 26, 2016. Pre-Operative Diagnosis lack of venous access Post-Operative Diagnosis same Procedure(s) Performed Insertion of Infusaport, Right Internal Jugular Approach, Ultrasound Localization Of Right Internal Jugular Vein, Fluoroscopy for Positioning, Moderate Concious Sedation [id number] Mendoza Heavy Equipment Technician Surgeon(s) Dr. Flowers Estimated Blood Loss 5 ml Findings tip in distal SVC Specimens none Anesthesia Local with moderate conscious sedation Complication(s) None Disposition
--- NOTE | 2016-08-26 10:13 | Pharmacy Progress Note ---
Glycemic Control: Progress Nt Date of Service Aug 26, 2016. Scope Glycemic Pharmacist consulted by Dr Hernandez on 08/15/16 for glycemic control and to write orders per [facility] inpatient glycemic control protocol. Objective Accuchecks BSG (last 24hrs): Test 08/25/16 12:00 08/25/16 17:00 08/25/16 20:19 08/25/16 23:50 Bedside Glucose 142 mg/dl (70-99) 223 mg/dl (70-99) 167 mg/dl (70-99) 195 mg/dl (70-99) Test 08/26/16 05:52 Bedside Glucose 147 mg/dl (70-99) HbA1c: Test 08/15/16 05:50 Hemoglobin A1c 6.4 % (4.5-5.6) H Recent Pertinent Medications Outpatient Anti-diabetic Regimen: * Lantus 70 units SQ AM * Humalog SSI with meals The patient is currently receiving: * Basal insulin: Lantus 15 units every 24 hours given in the morning * Correctional Insulin: Novolog Correction per scale ACHS Goal Range: Low 110 mg/dL - High 140 mg/dL Correction Factor: 30 mg/dL/unit * Prandial insulin: Per carb ratio of 1 unit per 10 grams CHO consumed Risk Factors for Insulin Resistance: * Infection * Recent Surgery * Diet * Dialysates Assessment & Plan ASSESSMENT: * 76yo T2DM male with presumed adequate degree of outpatient control per recent A1c of 6.4% on 08/15/16. However, this result is likely somewhat unreliable in ESRD patients d/t interactions between the A1c analyzing technique and high levels of urea in ESRD, reduced RBC life span, iron deficiency anemia, and EPO administration. HbA1c > 7.5% in ESRD patient may overestimate the extent of hyperglycemia in ESRD patients. * Pt for A-port placement this morning for medical terminologist Abx therapy. Will be NPO for procedure * Lantus held this AM prior to OR for NPO, but pt will likely need reduced basal insulin dose after surgery and diet resumed * Pt has been requiring ~ 30 units of insulin per day while admitted. This is significantly less than outpatient dosing. Reduced dosing most likely d/t controlled CHO intake with inpatient diet. However, Outpatient regimen may need adjusted downwards at discharge to prevent hypoglycemia. * ADA & AACE recommend a goal blood sugar range 140-180 mg/dl for the majority of critically ill & non-critically ill patients. However, more stringent targets may be selected in individual cases. PLAN FOR INPATIENT GLYCEMIC CONTROL: * HOLD Basal insulin with Lantus 15 units SQ AM this morning prior to surgery. Resume this dosing tomorrow * Give Lantus 10 units SQ x 1 dose after surgery with lunch once diet resumed. * Correctional Insulin with NOVOLOG per scale ACHS or Q6hrs while NPO * Goal Range: Low 110 mg/dL - High 140 mg/dL * Correction Factor: 30 mg/dL/unit * Nutritional / Prandial insulin per carb ratio of 1 unit per 10 grams CHO consumed * Please note that the plan above was derived based on current level of insulin resistance and hospital stress. These recommendations are appropriate for inpatient admission only. Plan of care upon discharge will need to be reassessed to avoid potential outpatient hypo/hyperglycemia. Thank you.
--- NOTE | 2016-08-26 10:27 | DIAGNOSTIC IMAGING REPORT ---
DATE OF PROCEDURE: 08/26/2016 PREOPERATIVE DIAGNOSIS: Need for a long-term venous access. POSTOPERATIVE DIAGNOSIS: Same. PROCEDURE: Insertion of right internal jugular Infusaport. SURGEON: Trey Mendoza. PSYCHIATRIC SECRETARY: Bright Flowers MD ANESTHESIA: Local plus conscious sedation. (36min) BLOOD LOSS: 5 mL. COMPLICATIONS: None. INDICATIONS: This is a 76-year-old female who presented to the hospital with a severe infection and will require long-term IV antibiotics. A PICC line was attempted to be inserted on the floor, but unfortunately this was malpositioned and had to be removed. In order to obtain long-term IV antibiotics, an Infusaport was recommended. Risks, benefits, alternatives were explained to the patient and he agreed to proceed. PROCEDURE: The patient was brought to the endovascular suite and placed in the supine position. The right neck and chest were prepped and draped in normal sterile fashion. Time out was performed and all parties agreed to correct patient and procedure to be performed. We started by making the chest wall pocket. After gentle installation of local anesthetic, a transverse incision was made over the right chest wall. Pocket was performed with a combination of blunt dissection and electrocautery. Next, our attention to the internal jugular access site. Under ultrasound guidance, the IJ vein was accessed on the first attempt. A wire was passed to the level of the cavoatrial junction. The dilator sheath was advanced. Next, the Iqrbnu-O-Wsty catheter was tunneled from the chest wall to the level of the neck. It was pulled out through the neck. This catheter was then passed through the dilator sheath. The catheter was pulled back until it was at the level of the cavoatrial junction. Again, the catheter was trimmed. Next, the catheter was attached to the port access site at the level of the chest. The port was placed in the pocket and was sutured in place with 3-0 Prolene stitch. A fluoroscopic image showed the catheter to be in good position with an appropriate curve and placement of the port. The port was accessed and flushed and marcelo back easily. Heparin was instilled into the end of the port. The skin and subcuticular were closed with the help of running Vicryl sutures. Dermabond was applied. The patient was transferred to recovery room in satisfactory condition. I, Dr. Mendoza was present and scurbbed for the entire procedure. [facility]
[2016-08-26] MEDS: AMOXICILLIN 250 MG CAP PO SCH ×2 (11:38→21:13)
[2016-08-26] MEDS: PANTOprazole SOD 40 MG TAB PO SCH (11:40)
[2016-08-26] MEDS: FUROSEMIDE 80 MG TAB PO SCH (11:42)
[2016-08-26] MEDS: OMEGA-3 (PURIFIED FISH OIL) 1 GM CAP PO SCH (11:43)
[2016-08-26] MEDS: RIFAMPIN 300 MG CAP PO SCH ×2 (11:44→21:14)
[2016-08-26] MEDS: CHOLECALCIFEROL 1000 INTER.UNIT TAB PO SCH (11:46)
[2016-08-26] MEDS: RANOLAZINE 500 MG ER TAB PO SCH ×2 (11:46→21:14)
[2016-08-26] MEDS: AcetaZOLAMIDE 250 MG TAB PO SCH ×2 (11:48→21:13)
[2016-08-26] MEDS: MULTIVITAMIN TAB PO SCH (11:49)
[2016-08-26] MEDS: CARVEDILOL 12.5 MG TAB PO SCH (11:50)
[2016-08-26] MEDS: CITALOPRAM 20 MG TAB PO SCH (11:52)
[2016-08-26] MEDS ORDERED: INSULIN GLARGINE SOLOSTAR 100 UNITS/ML 3 ML PEN SC SCH (12:00)
[2016-08-26] MEDS: CEFTRIAXONE SOD INJ 2,000 MG in DEXTROSE 5% 50ML 50 ML IV SCH (14:07)
[2016-08-26] MEDS: CARVEDILOL 6.25 MG TAB PO SCH (21:13)
--- NOTE | 2016-08-26 22:07 | Progress Note ---
Internal Med Progress Note Date of Service: Aug 26, 2016. Provider Documentation: SUBJECTIVE: Aport placed today by Dr Evangelista pt denies of any pain or discomfort OBJECTIVE: Vital Signs-as noted below Exam: General-elderly male , baseline dementia ,no apparent distress Eyes-sclera non icteric ENT-NAD Neck-no JVD Lungs-diminished Heart-regular Abdomen-soft, non tender Extremities-rt foot s/p I&D , surgical bandage present Neuro-no focal neurological deficit Lab data as noted below. ASSESSMENT & PLAN: Calcaneus Osteomyelitis/NON HEALING RT HEEL ULCER - s/p Debridement 08/19/16 - blood cultures :negative wound culture: Staph aureus , MSSS/Corynebacterium /Enterococcus CULTURE FROM BONE SPECIMEN : identical GRAM STAIN Final 08/20/16-713 RESULT RARE WBCs SEEN RARE GRAM POSITIVE COCCI OR AER/WILL CULT Final 08/24/16-1256 Organism 1 STAPHYLOCOCCUS AUREUS QUANITY FEW SENS SENSITIVITY TO FOLLOW ANAS NO ANAEROBES ISOLATED. +MIXWOUND PLUS LOW COUNTS OF PROBABLE SKIN JIM Organism 2 ENTEROCOCCUS FAECALIS QUANITY RARE SENS SENSITIVITY TO FOLLOW Organism 3 CORYNEBACTERIUM SPECIES QUANITY FEW SENS NO SENSITIVITY TO FOLLOW STAPH AUR E FAECALIS M.I.C. RX M.I.C. RX --------- ------ --------- ------ TRIMET/SULFA <=0.5/9.5 S AMPICILLIN <=2 S * OXACILLIN 0.5 S GENT SYNERGY <=500 S VANCOMYCIN 2 S 2 S PENICILLIN 2 S ERYTHROMYCIN <=0.5 S TETRACYCLINE <=4 S CLINDAMYCIN <=0.5 S DAPTOMYCIN <=0.5 S 1 S STREP SYNERGY >1000 R ENTEROCOCCUS FAECALIS: POSITIVE COMBO 33 Streptomycin Synergy Screen R Gentamicin Synergy Screen S bone culture: Staph, Strep echo: possible vegetation on mitral valve leaflet will need at least 6 weeks antibiotics unable to place PICC line today/resistance noted after 30 cm , unable to remove line as got trapped at last 5 cm ext Vascular surgery consulted for assistance in removal of PICC -appreciate input PICC line removed A port placed by Dr Evangelista today ID consulted , appreciate recommendations Abx regimen L IV ceftriaxone 2 g daily and p.o. amoxicillin 500 mg t.i.d./ Rifampin 300 mg PO BID -for additional coverage of staph with likely vegetation. patient will require 6 weeks of antibiotic therapy. A port will be placed on Monday for custodial ABx tx with IV Rocephin Mitral valve vegetation : - possible mitral valve vegetation on the mitral valve seen in transthoracic ECHO prior hx of Aortic and Mitral valve replacement (Bioprosthetic) blood cultures drawn after antibiotics started consulted Asset Protection Assistant--> poor surgical candidate for Mitral valve replacement recommend completing 6 weeks of antibiotics conservative approach repeat ECHO 08/23/2016 : There is a bioprosthetic mitral valve. Bioprosthesis leaflets are thickened but move well. Previously noted mobile density on the mitral valve prosthesis is less apparent on the current study, coannot exclude small vegetation The prosthetic mitral valve is well-seated. There is trace mitral regurgitation. There is a bioprosthetic aortic valve. The prosthetic aortic valve appears to open well. There is no aortic valvular vegetation. ESRD on peritoneal dialysis - Nephrology following cont Peritoneal dialysis Bradycardia: Digoxin discontinued reduced PM dose of Coreg 6.25 mg /cont AM dose of Coreg 12.5 mg daily CAD s/p CABG - hold Lisinopril for marginal BP -on Ranexa - on Aspirin Atrial fibrillation - in sinus rhythm, HR controlled - Coreg dose adjusted and Digoxin-D/ed for bradycardia - Coumadin on hold for elevated INR monitor INR Chronic systolic heart failure EF 35% -40 % - on Lasix 80mg daily monitor volume status Anemia-likely multifactorial but 2/2 mainly to ESRD - on Procrit. - given 2 units PRBC Hg stable at ~9 monitor Severe PAD -s/p recent vascular intervention last week s/p 3 stents placed. on Aspirin DM II -ISS/Lantus, glycemic pharmacy consult placed DVT prop - on Coumadin FULL CODE DISPOSITION : will likely need Rehab/SNF- referral made for [facility] possible transfer to [facility] tomorrow Social service consulted for discharge planning Vital Signs: Date Time Temp Pulse Resp B/P Pulse Ox O2 Delivery O2 Flow Rate FiO2 08/26/16 15:25 Room Air 08/26/16 15:00 36.8 94 16 115/67 99 Room Air 08/26/16 14:00 36.4 96 20 113/69 98 Room Air 08/26/16 13:00 36.7 96 20 117/70 98 Room Air 08/26/16 12:00 36.6 97 19 121/75 97 Room Air 08/26/16 11:34 36.9 94 17 108/54 98 Room Air 08/26/16 11:06 Room Air 08/26/16 11:00 36.5 91 16 125/69 99 Room Air 08/26/16 10:40 37 95 95 116/67 97 Room Air 08/26/16 10:30 37. 95 95 122/66 98 Room Air 08/26/16 10:20 37. 95 97 114/64 97 Room Air 08/26/16 09:38 99 Room Air 08/26/16 08:30 36.8 94 16 130/74 08/26/16 07:57 36.4 94 16 130/74 99 Room Air 08/26/16 07:07 Room Air 08/25/16 22:45 36.7 91 18 95/48 98 Room Air Lab Results: Results Past 24 Hours Test 08/25/16 23:50 08/26/16 05:52 08/26/16 05:59 08/26/16 11:20 Range/Units Bedside Glucose 195 147 128 70-99 mg/dl Prothrombin Time 25.5 9.0-12.0 SECONDS Prothromb Time International Ratio 2.3 0.9-1.1 Test 08/26/16 17:10 08/26/16 20:58 Range/Units Bedside Glucose 165 179 70-99 mg/dl
[2016-08-27] VITALS (11 sets, daily range): BP systolic 117–190; BP diastolic 58–75; PULSE 84–93; TEMP 36.5–36.8; O2SAT 97–100
[2016-08-27 06:43] LABS: HEMATOCRIT 29.9 % (42-52); MEAN CORPUSCULAR HEMOGLOBIN 31.1 pg (25-34); MEAN CORPUSCULAR HGB CONC 31.4 g/dl (32-36); MEAN PLATELET VOLUME 9.3 fL (7.4-10.4); PLATELET COUNT 311 K/uL (130-400); RED BLOOD COUNT 3.02 M/uL (4.7-6.1)
[2016-08-27 06:50] LABS: INR 2.2 (0.9-1.1); PROTHROMBIN TIME (PATIENT) 23.8 SECONDS (9.0-12.0)
[2016-08-27] MEDS: CALCIUM ACETATE 667MG GELCAP PO SCH ×3 (08:30→17:17)
[2016-08-27] MEDS: AMOXICILLIN 250 MG CAP PO SCH ×2 (08:47→20:59)
[2016-08-27] MEDS: CITALOPRAM 20 MG TAB PO SCH (08:48)
--- NOTE | 2016-08-27 08:48 | Nephrology Progress Note ---
Nephrology Progress Note Date of Service: Aug 27, 2016. 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 pt underwent infusaport yesterday and procedure went well. pt feels good. Objective Date Time Temp Pulse Resp B/P Pulse Ox O2 Delivery O2 Flow Rate FiO2 08/27/16 08:12 98 Room Air 08/27/16 07:46 36.5 93 18 138/72 98 Room Air 08/27/16 03:30 36.5 85 16 138/70 97 Room Air 08/26/16 23:20 Room Air 08/26/16 22:45 36.7 90 15 117/67 98 Room Air 08/26/16 15:25 Room Air 08/26/16 15:00 36.8 94 16 115/67 99 Room Air 08/26/16 14:00 36.4 96 20 113/69 98 Room Air 08/26/16 13:00 36.7 96 20 117/70 98 Room Air 08/26/16 12:00 36.6 97 19 121/75 97 Room Air 08/26/16 11:34 36.9 94 17 108/54 98 Room Air 08/26/16 11:06 Room Air 08/26/16 11:00 36.5 91 16 125/69 99 Room Air 08/26/16 10:40 37 95 95 116/67 97 Room Air 08/26/16 10:30 37. 95 95 122/66 98 Room Air 08/26/16 10:20 37. 95 97 114/64 97 Room Air 08/26/16 09:38 99 Room Air Physical Exam: General-aaox3 Eyes-no scleral icterus ENT-mmm Neck-supple Lungs-cta Heart-2/6 systolic murmur Abdomen-pd catheter in place, soft, nontender Extremities-right heel ulcer-wrapped Neuro-nonfocal Current Inpatient Medications Medications (Trade) Dose Ordered Sig/Andrei Route Start Time Stop Time Status Last Admin Dose Admin Acetaminophen (Tylenol Tab) 650 mg Q4H PRN PO 08/15/16 00:15 09/14/16 00:14 Polyethylene (Miralax Powder Packet) 17 gm DAILY PRN PO 08/15/16 00:15 09/14/16 00:14 08/18/16 09:03 17 GM Ondansetron HCl (Zofran Inj) 4 mg Q6H PRN IV 08/15/16 00:15 09/14/16 00:14 Glucose (Glucose 40% Gel) 15-30 GRAMS 15 GRAMS... UD PRN PO 08/15/16 00:15 09/14/16 00:14 Glucose (Glucose Chew Tab) 4-8 Tablets 4 Tabl... UD PRN PO 08/15/16 00:15 09/14/16 00:14 Dextrose (Dextrose 50% 50ML Syringe) 25-50ML OF 50% DW IV FOR... UD PRN IV 08/15/16 00:15 09/14/16 00:14 Glucagon (Glucagon Inj) 1 mg UD PRN SQ 08/15/16 00:15 09/14/16 00:14 Miscellaneous Information (Consult Glycemic Management Pharmacy) 1 ea DAILY PRN N/A 08/15/16 02:18 09/14/16 02:17 Acetazolamide (Diamox Tab) 250 mg BID PO 08/15/16 09:00 09/14/16 08:59 08/26/16 21:13 250 MG Calcium Acetate (Phoslo Cap) 667 mg AC PO 08/15/16 08:00 09/14/16 07:59 08/27/16 08:30 667 MG Fish Oil ([place]-3 (Purified Fish Oil) Cap) 1 gm DAILY PO 08/15/16 09:00 09/14/16 08:59 08/26/16 11:43 1 GM Folic Acid (Folvite Tab) 1 mg DAILY PO 08/15/16 09:00 09/14/16 08:59 08/26/16 11:52 1 MG Multivitamins (Multivitamin Tab) 1 tab DAILY PO 08/15/16 09:00 09/14/16 08:59 08/26/16 11:49 1 TAB Ranolazine (Ranexa ER Tab) 500 mg BID PO 08/15/16 09:00 09/14/16 08:59 08/26/16 21:14 500 MG Cholecalciferol (Vitamin D Tab) 1,000 inter.unit QAM PO 08/15/16 09:00 09/14/16 08:59 08/26/16 11:46 1,000 INTER.UNIT Citalopram Hydrobromide (celeXA TAB) 20 mg QAM PO 08/15/16 09:00 09/14/16 08:59 08/26/16 11:52 20 MG Pantoprazole Sodium (Protonix Tab) 40 mg QAM PO 08/15/16 09:00 09/14/16 08:59 08/26/16 11:40 40 MG Morphine Sulfate (MoRPHine SULFATE INJ) 2 mg Q6H PRN IV 08/15/16 15:45 08/29/16 15:44 Tramadol HCl (Ultram Tab) 50 mg Q6H PRN PO 08/15/16 15:45 09/14/16 15:44 Insulin Glargine (Lantus Solostar Pen) SEE PROTOCOL DAILY SC 08/18/16 09:00 09/17/16 08:59 Future hold 08/25/16 09:18 15 UNIT Furosemide (Lasix Tab) 80 mg QAM PO 08/23/16 09:00 09/22/16 08:59 08/26/16 11:42 80 MG Warfarin Sodium (Coumadin Tab) 5 mg DAILY@16 PO 08/22/16 16:00 09/21/16 15:59 Future Hold 08/23/16 15:42 5 MG Carvedilol (Coreg Tab) 12.5 mg DAILY@0900 PO 08/23/16 09:00 09/22/16 08:59 08/26/16 11:50 12.5 MG Carvedilol 6.25 mg 6.25 mg DAILY@2100 PO 08/22/16 21:00 09/21/16 20:59 08/26/16 21:13 6.25 MG Ceftriaxone Sodium/Dextrose (Rocephin Inj/D5 50ml) 70 ml @ 100 mls/hr DAILY@1400 IV 08/23/16 14:00 10/04/16 13:59 08/26/16 14:07 100 MLS/HR Rifampin (Rifadin Cap) 300 mg BID PO 08/23/16 21:00 10/04/16 20:59 08/26/16 21:14 300 MG Miscellaneous Information 1 ea UD PRN N/A 08/23/16 16:15 09/22/16 16:14 Amoxicillin (Amoxil Cap) 250 mg BID PO 08/24/16 21:00 10/04/16 15:59 08/26/16 21:13 250 MG Miconazole Nitrate (Desenex Powder) 1 appln UD PRN EXT 08/24/16 18:45 09/23/16 18:44 Enteral Nutritional Formula (Boost Glucose Control) 1 can BIDM PO 08/26/16 17:45 09/25/16 17:44 08/26/16 17:49 1 CAN Insulin Aspart (novoLOG ASPART) SLIDING SCALE If C... ACHS SC 08/26/16 21:45 09/25/16 21:44 08/26/16 22:10 2 UNITS Last 24 Hours Test 08/26/16 11:20 08/26/16 17:10 08/26/16 20:58 08/27/16 06:05 Bedside Glucose 128 mg/dl 165 mg/dl 179 mg/dl White Blood Count 11.30 K/uL Red Blood Count 3.02 M/uL Hemoglobin 9.4 g/dL Hematocrit 29.9 % Mean Corpuscular Volume 99.0 fL Mean Corpuscular Hemoglobin 31.1 pg Mean Corpuscular Hemoglobin Concent 31.4 g/dl RDW Standard Deviation 61.9 fL RDW Coefficient of Variation 16.9 % Platelet Count 311 K/uL Mean Platelet Volume 9.3 fL Prothrombin Time 23.8 SECONDS Prothromb Time International Ratio 2.2 Test 08/27/16 07:57 Bedside Glucose 211 mg/dl Assessment & Plan ESRD-volume status appropriate. has been getting one green and one yellow which appears to be a good rx for him. no changes. Anemia of renal failure-continue procrit to keep hg levels between 10 and 11. hg under 10 and will redose procrit 10,000 units again today. VERO: continue phoslo and vitamin d. follow phos levels intermittently.
[2016-08-27] MEDS: CARVEDILOL 12.5 MG TAB PO SCH (08:50)
[2016-08-27] MEDS: AcetaZOLAMIDE 250 MG TAB PO SCH ×2 (08:51→21:00)
[2016-08-27] MEDS: FUROSEMIDE 80 MG TAB PO SCH (08:53)
[2016-08-27] MEDS: OMEGA-3 (PURIFIED FISH OIL) 1 GM CAP PO SCH (08:54)
[2016-08-27] MEDS: MULTIVITAMIN TAB PO SCH (08:54)
[2016-08-27] MEDS: PANTOprazole SOD 40 MG TAB PO SCH (08:55)
[2016-08-27] MEDS: RIFAMPIN 300 MG CAP PO SCH ×2 (08:56→21:00)
[2016-08-27] MEDS: RANOLAZINE 500 MG ER TAB PO SCH ×2 (08:56→21:00)
[2016-08-27] MEDS: CHOLECALCIFEROL 1000 INTER.UNIT TAB PO SCH (08:57)
[2016-08-27] MEDS ORDERED: EPOETIN ALFA 10,000 UNITS/ML VIAL SQ SCH (09:00)
[2016-08-27] MEDS: INSULIN ASPART 100 UNITS/ML 3 ML PEN SC SCH ×4 (09:22→21:13)
[2016-08-27] MEDS: INSULIN GLARGINE SOLOSTAR 100 UNITS/ML 3 ML PEN SC SCH (09:26)
[2016-08-27] MEDS: BOOST GLUCOSE CONTROL PO SCH ×2 (11:20→17:28)
--- NOTE | 2016-08-27 12:05 | Orthopedic Progress Note ---
Orthopedic Progress Note Date of Service Aug 27, 2016. Subjective Post OP Day: 8 Denies: complaints Additional Notes: Patient seems to be confused this AM. Unsure of the date or what program is on the television. Objective Patient is awake. Right heel: sutures in place at proximal aspect of the ulceration. The ulceration is stable and appears to be healing. Decreased swelling. No erythema or drainage noted. Dressing changed. Date Time Temp Pulse Resp B/P Pulse Ox O2 Delivery O2 Flow Rate FiO2 08/27/16 11:57 36.6 84 18 132/70 99 Room Air 08/27/16 11:49 36.5 88 18 190/75 08/27/16 10:26 98 Room Air 08/27/16 08:12 98 Room Air 08/27/16 07:46 36.5 93 18 138/72 98 Room Air 08/27/16 07:30 98 Room Air 08/27/16 03:30 36.5 85 16 138/70 97 Room Air 08/27/16 00:20 36.7 90 117/67 08/26/16 23:20 Room Air 08/26/16 22:45 36.7 90 15 117/67 98 Room Air 08/26/16 15:25 Room Air 08/26/16 15:00 36.8 94 16 115/67 99 Room Air 08/26/16 14:00 36.4 96 20 113/69 98 Room Air 08/26/16 13:00 36.7 96 20 117/70 98 Room Air Laboratory Results 24 Hours: Test 08/27/16 06:05 Hematocrit 29.9 % Hemoglobin 9.4 g/dL Prothromb Time International Ratio 2.2 Prothrombin Time 23.8 SECONDS Assessment & Plan Assessment: POD #8 Irrigation and debridment right posterior heel necrotic diabetic wound, debridement right posterior necrotic calcaneal bone, debridement Achilles tendon, Excision avulsion fracture posterior calcaneus, debridement skin and fascia posterior heel, implantation antibiotic laden stimulan beads . Patricia sensitive Staph Aureus growing, Strep, and corynebacterium Anemia Plan: Will continue to monitor for dressing changes. Daily dressing changes by nursing in the AM. PICC line will need to be placed per ID--IV team had difficulty with the PICC line placement. Surgical eval. today. Pt will possibly need a delayed repair of the Achilles Tendon if the infection can be cleared and soft tissue coverage is possible. Continue to follow for wound care Inhouse Planning Pain Management: Ultram, Morphine DVT Prophylaxis: TEDs, SCDs, Coumadin Discharge Planning Discharge Planning: uncertain
[2016-08-27] MEDS: CEFTRIAXONE SOD INJ 2,000 MG in DEXTROSE 5% 50ML 50 ML IV SCH (13:58)
[2016-08-27] MEDS ORDERED: WARFARIN SOD 2.5 MG TAB PO ONE (17:30)
[2016-08-27] MEDS: CARVEDILOL 6.25 MG TAB PO SCH (20:59)
--- NOTE | 2016-08-27 22:11 | Progress Note ---
Internal Med Progress Note Date of Service: Aug 27, 2016. Provider Documentation: SUBJECTIVE: having episode of confusion -very forgetful no agitation no fever or chills family was concerned regarding confusion , not able to recognize family members no evidence of worsening infection or electrolyte imbalance assured that episodes of confusion possibly due to delirium /in patient stay - very common in elderly baseline line dementia and multiple co morbidities needs frequent assurance , re orientations from the providers and nursing OBJECTIVE: Vital Signs-as noted below Exam: General-elderly male , baseline dementia ,no apparent distress Eyes-sclera non icteric ENT-NAD Neck-no JVD Lungs-diminished Heart-regular Abdomen-soft, non tender Extremities-rt foot s/p I&D , surgical bandage present Neuro-no focal neurological deficit Lab data as noted below. ASSESSMENT & PLAN: Calcaneus Osteomyelitis/NON HEALING RT HEEL ULCER - s/p Debridement 08/19/16 - blood cultures :negative wound culture: Staph aureus , MSSS/Corynebacterium /Enterococcus CULTURE FROM BONE SPECIMEN : identical GRAM STAIN Final 08/20/16-713 RESULT RARE WBCs SEEN RARE GRAM POSITIVE COCCI OR AER/WILL CULT Final 08/24/16-1256 Organism 1 STAPHYLOCOCCUS AUREUS QUANITY FEW SENS SENSITIVITY TO FOLLOW ANAS NO ANAEROBES ISOLATED. +MIXWOUND PLUS LOW COUNTS OF PROBABLE SKIN JIM Organism 2 ENTEROCOCCUS FAECALIS QUANITY RARE SENS SENSITIVITY TO FOLLOW Organism 3 CORYNEBACTERIUM SPECIES QUANITY FEW SENS NO SENSITIVITY TO FOLLOW STAPH AUR E FAECALIS M.I.C. RX M.I.C. RX --------- ------ --------- ------ TRIMET/SULFA <=0.5/9.5 S AMPICILLIN <=2 S * OXACILLIN 0.5 S GENT SYNERGY <=500 S VANCOMYCIN 2 S 2 S PENICILLIN 2 S ERYTHROMYCIN <=0.5 S TETRACYCLINE <=4 S CLINDAMYCIN <=0.5 S DAPTOMYCIN <=0.5 S 1 S STREP SYNERGY >1000 R ENTEROCOCCUS FAECALIS: POSITIVE COMBO 33 Streptomycin Synergy Screen R Gentamicin Synergy Screen S bone culture: Staph, Strep echo: possible vegetation on mitral valve leaflet will need at least 6 weeks antibiotics unable to place PICC line today/resistance noted after 30 cm , unable to remove line as got trapped at last 5 cm ext Vascular surgery consulted for assistance in removal of PICC -appreciate input PICC line removed A port placed by Dr Kelly ROMERO consulted , appreciate recommendations Abx regimen L IV ceftriaxone 2 g daily and p.o. amoxicillin 500 mg t.i.d./ Rifampin 300 mg PO BID -for additional coverage of staph with likely vegetation. patient will require 6 weeks of antibiotic therapy. A port will be placed on Monday for longterm ABx tx with IV Rocephin Mitral valve vegetation : - possible mitral valve vegetation on the mitral valve seen in transthoracic ECHO prior hx of Aortic and Mitral valve replacement (Bioprosthetic) blood cultures drawn after antibiotics started consulted Qc Analyst--> poor surgical candidate for Mitral valve replacement recommend completing 6 weeks of antibiotics conservative approach repeat ECHO 08/23/2016 : There is a bioprosthetic mitral valve. Bioprosthesis leaflets are thickened but move well. Previously noted mobile density on the mitral valve prosthesis is less apparent on the current study, coannot exclude small vegetation The prosthetic mitral valve is well-seated. There is trace mitral regurgitation. There is a bioprosthetic aortic valve. The prosthetic aortic valve appears to open well. There is no aortic valvular vegetation. ESRD on peritoneal dialysis - Nephrology following cont Peritoneal dialysis Bradycardia: Digoxin discontinued reduced PM dose of Coreg 6.25 mg /cont AM dose of Coreg 12.5 mg daily CAD s/p CABG - hold Lisinopril for marginal BP -on Ranexa - on Aspirin Atrial fibrillation - in sinus rhythm, HR controlled - Coreg dose adjusted and Digoxin-D/ed for bradycardia - Coumadin on hold for elevated INR monitor INR Chronic systolic heart failure EF 35% -40 % - on Lasix 80mg daily monitor volume status Anemia-likely multifactorial but 2/2 mainly to ESRD - on Procrit. - given 2 units PRBC Hg stable at ~9 monitor Severe PAD -s/p recent vascular intervention last week s/p 3 stents placed. on Aspirin DM II -ISS/Lantus, glycemic pharmacy consult placed DVT prop - on Coumadin FULL CODE DISPOSITION : will likely need Rehab/SNF- referral made for [facility] Social service consulted for discharge planning Vital Signs: Date Time Temp Pulse Resp B/P Pulse Ox O2 Delivery O2 Flow Rate FiO2 08/27/16 20:12 36.8 90 128/58 08/27/16 15:30 36.8 90 16 128/58 100 Room Air 08/27/16 15:15 Room Air 08/27/16 11:57 36.6 84 18 132/70 99 Room Air 08/27/16 11:49 36.5 88 18 190/75 08/27/16 10:26 98 Room Air 08/27/16 08:12 98 Room Air 08/27/16 07:46 36.5 93 18 138/72 98 Room Air 08/27/16 07:30 98 Room Air 08/27/16 03:30 36.5 85 16 138/70 97 Room Air 08/27/16 00:20 36.7 90 117/67 08/26/16 23:20 Room Air 08/26/16 22:45 36.7 90 15 117/67 98 Room Air Lab Results: Results Past 24 Hours Test 08/27/16 06:05 08/27/16 07:57 08/27/16 12:13 08/27/16 16:39 Range/Units White Blood Count 11.30 4.8-10.8 K/uL Red Blood Count 3.02 4.7-6.1 M/uL Hemoglobin 9.4 14.0-18.0 g/dL Hematocrit 29.9 42-52 % Mean Corpuscular Volume 99.0 80-100 fL Mean Corpuscular Hemoglobin 31.1 25-34 pg Mean Corpuscular Hemoglobin Concent 31.4 32-36 g/dl RDW Standard Deviation 61.9 36.4-46.3 fL RDW Coefficient of Variation 16.9 11.5-14.5 % Platelet Count 311 130-400 K/uL Mean Platelet Volume 9.3 7.4-10.4 fL Prothrombin Time 23.8 9.0-12.0 SECONDS Prothromb Time International Ratio 2.2 0.9-1.1 Bedside Glucose 211 187 162 70-99 mg/dl Test 08/27/16 20:41 Range/Units Bedside Glucose 209 70-99 mg/dl
[2016-08-28] VITALS (7 sets, daily range): BP systolic 80–123; BP diastolic 48–74; PULSE 95–101; TEMP 36.5–36.7; O2SAT 98–100
[2016-08-28 06:42] LABS: INR 2.6 (0.9-1.1); PROTHROMBIN TIME (PATIENT) 28.8 SECONDS (9.0-12.0)
[2016-08-28] MEDS: BOOST GLUCOSE CONTROL PO SCH ×2 (08:30→18:32)
[2016-08-28] MEDS: MULTIVITAMIN TAB PO SCH (09:34)
[2016-08-28] MEDS: OMEGA-3 (PURIFIED FISH OIL) 1 GM CAP PO SCH (09:34)
[2016-08-28] MEDS: AcetaZOLAMIDE 250 MG TAB PO SCH ×2 (09:35→20:45)
[2016-08-28] MEDS: RANOLAZINE 500 MG ER TAB PO SCH ×2 (09:35→20:46)
[2016-08-28] MEDS: RIFAMPIN 300 MG CAP PO SCH ×2 (09:35→20:46)
[2016-08-28] MEDS: PANTOprazole SOD 40 MG TAB PO SCH (09:36)
[2016-08-28] MEDS: CHOLECALCIFEROL 1000 INTER.UNIT TAB PO SCH (09:36)
[2016-08-28] MEDS: AMOXICILLIN 250 MG CAP PO SCH ×2 (09:36→20:43)
[2016-08-28] MEDS: CITALOPRAM 20 MG TAB PO SCH (09:37)
[2016-08-28] MEDS: CARVEDILOL 12.5 MG TAB PO SCH (09:37)
[2016-08-28] MEDS: CALCIUM ACETATE 667MG GELCAP PO SCH ×3 (09:37→16:54)
[2016-08-28] MEDS: FUROSEMIDE 80 MG TAB PO SCH (09:38)
[2016-08-28] MEDS: INSULIN ASPART 100 UNITS/ML 3 ML PEN SC SCH ×4 (09:46→20:42)
[2016-08-28] MEDS: INSULIN GLARGINE SOLOSTAR 100 UNITS/ML 3 ML PEN SC SCH (09:48)
--- NOTE | 2016-08-28 13:09 | Nephrology Progress Note ---
Nephrology Progress Note Date of Service: Aug 28, 2016. 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 pt underwent infusaport. has some intermittent confusion. Family at bedside. Objective Date Time Temp Pulse Resp B/P Pulse Ox O2 Delivery O2 Flow Rate FiO2 08/28/16 10:30 36.5 96 15 122/71 08/28/16 08:45 Room Air 08/28/16 06:52 36.5 96 15 122/71 98 Room Air 08/27/16 23:10 Room Air 08/27/16 23:01 36.6 91 18 127/71 100 Room Air 08/27/16 20:12 36.8 90 128/58 08/27/16 15:30 36.8 90 16 128/58 100 Room Air 08/27/16 15:15 Room Air Physical Exam: General-aaox3 Eyes-no scleral icterus ENT-mmm Neck-supple Lungs-left sided rales Heart-2/6 systolic murmur Abdomen-pd catheter in place, soft, nontender Extremities-right heel ulcer-wrapped Neuro-nonfocal Current Inpatient Medications Medications (Trade) Dose Ordered Sig/Andrei Route Start Time Stop Time Status Last Admin Dose Admin Acetaminophen (Tylenol Tab) 650 mg Q4H PRN PO 08/15/16 00:15 09/14/16 00:14 Polyethylene (Miralax Powder Packet) 17 gm DAILY PRN PO 08/15/16 00:15 09/14/16 00:14 08/18/16 09:03 17 GM Ondansetron HCl (Zofran Inj) 4 mg Q6H PRN IV 08/15/16 00:15 09/14/16 00:14 Glucose (Glucose 40% Gel) 15-30 GRAMS 15 GRAMS... UD PRN PO 08/15/16 00:15 09/14/16 00:14 Glucose (Glucose Chew Tab) 4-8 Tablets 4 Tabl... UD PRN PO 08/15/16 00:15 09/14/16 00:14 Dextrose (Dextrose 50% 50ML Syringe) 25-50ML OF 50% DW IV FOR... UD PRN IV 08/15/16 00:15 09/14/16 00:14 Glucagon (Glucagon Inj) 1 mg UD PRN SQ 08/15/16 00:15 09/14/16 00:14 Miscellaneous Information (Consult Glycemic Management Pharmacy) 1 ea DAILY PRN N/A 08/15/16 02:18 09/14/16 02:17 Acetazolamide (Diamox Tab) 250 mg BID PO 08/15/16 09:00 09/14/16 08:59 08/28/16 09:35 250 MG Calcium Acetate (Phoslo Cap) 667 mg AC PO 08/15/16 08:00 09/14/16 07:59 08/28/16 09:37 667 MG Fish Oil ([place]-3 (Purified Fish Oil) Cap) 1 gm DAILY PO 08/15/16 09:00 09/14/16 08:59 08/28/16 09:34 1 GM Folic Acid (Folvite Tab) 1 mg DAILY PO 08/15/16 09:00 09/14/16 08:59 08/28/16 09:35 1 MG Multivitamins (Multivitamin Tab) 1 tab DAILY PO 08/15/16 09:00 09/14/16 08:59 08/28/16 09:34 1 TAB Ranolazine (Ranexa ER Tab) 500 mg BID PO 08/15/16 09:00 09/14/16 08:59 08/28/16 09:35 500 MG Cholecalciferol (Vitamin D Tab) 1,000 inter.unit QAM PO 08/15/16 09:00 09/14/16 08:59 08/28/16 09:36 1,000 INTER.UNIT Citalopram Hydrobromide (celeXA TAB) 20 mg QAM PO 08/15/16 09:00 09/14/16 08:59 08/28/16 09:37 20 MG Pantoprazole Sodium (Protonix Tab) 40 mg QAM PO 08/15/16 09:00 09/14/16 08:59 08/28/16 09:36 40 MG Morphine Sulfate (MoRPHine SULFATE INJ) 2 mg Q6H PRN IV 08/15/16 15:45 08/29/16 15:44 Tramadol HCl (Ultram Tab) 50 mg Q6H PRN PO 08/15/16 15:45 09/14/16 15:44 Insulin Glargine (Lantus Solostar Pen) SEE PROTOCOL DAILY SC 08/18/16 09:00 09/17/16 08:59 Future hold 08/28/16 09:48 15 UNIT Furosemide (Lasix Tab) 80 mg QAM PO 08/23/16 09:00 09/22/16 08:59 08/28/16 09:38 80 MG Carvedilol (Coreg Tab) 12.5 mg DAILY@0900 PO 08/23/16 09:00 09/22/16 08:59 08/28/16 09:37 12.5 MG Carvedilol 6.25 mg 6.25 mg DAILY@2100 PO 08/22/16 21:00 09/21/16 20:59 08/27/16 20:59 6.25 MG Ceftriaxone Sodium/Dextrose (Rocephin Inj/D5 50ml) 70 ml @ 100 mls/hr DAILY@1400 IV 08/23/16 14:00 10/04/16 13:59 08/27/16 13:58 100 MLS/HR Rifampin (Rifadin Cap) 300 mg BID PO 08/23/16 21:00 10/04/16 20:59 08/28/16 09:35 300 MG Miscellaneous Information 1 ea UD PRN N/A 08/23/16 16:15 09/22/16 16:14 Amoxicillin (Amoxil Cap) 250 mg BID PO 08/24/16 21:00 10/04/16 15:59 08/28/16 09:36 250 MG Miconazole Nitrate (Desenex Powder) 1 appln UD PRN EXT 08/24/16 18:45 09/23/16 18:44 Enteral Nutritional Formula (Boost Glucose Control) 1 can BIDM PO 08/26/16 17:45 09/25/16 17:44 08/27/16 17:28 1 CAN Insulin Aspart (novoLOG ASPART) SLIDING SCALE If C... ACHS SC 08/26/16 21:45 09/25/16 21:44 08/28/16 09:46 2 UNITS Heparin Sodium (Porcine) (Heparin 100 Unit/ml 5ml Flush) 5 ml PRN PRN IV 08/27/16 14:15 09/26/16 14:14 08/28/16 06:14 5 ML Warfarin Sodium (Coumadin Tab) 2.5 mg DAILY@16 PO 08/28/16 16:00 09/27/16 15:59 Last 24 Hours Test 08/27/16 16:39 08/27/16 20:41 08/28/16 05:45 08/28/16 07:52 Bedside Glucose 162 mg/dl 209 mg/dl 180 mg/dl Hemoglobin 9.4 g/dL Hematocrit 30.0 % Prothrombin Time 28.8 SECONDS Prothromb Time International Ratio 2.6 Test 08/28/16 11:52 Bedside Glucose 157 mg/dl Assessment & Plan ESRD-volume status appropriate. has been getting one green and one yellow which appears to be a good rx for him. to recheck bmp again tomorrow. Anemia of renal failure-continue procrit to keep hg levels between 10 and 11. hg under 10. dosed again on monday. hg of 9.4. VERO: continue phoslo and vitamin d. follow phos levels intermittently. pts volume status appropriate and to recheck bmp again tomorrow.
[2016-08-28] MEDS: CEFTRIAXONE SOD INJ 2,000 MG in DEXTROSE 5% 50ML 50 ML IV SCH (13:41)
[2016-08-28] MEDS: WARFARIN SOD 2.5 MG TAB PO SCH (16:39)
--- NOTE | 2016-08-28 18:26 | Progress Note ---
Internal Med Progress Note Date of Service: Aug 28, 2016. Provider Documentation: SUBJECTIVE: less confusion today says feel fine , no fever or chills tolerating peritoneal dialysis no pain or discomfort on rt ankle OBJECTIVE: Vital Signs-as noted below Exam: General-elderly male , baseline dementia ,no apparent distress Eyes-sclera non icteric ENT-NAD Neck-no JVD Lungs-diminished Heart-regular Abdomen-soft, non tender Extremities-rt foot s/p I&D , surgical bandage present Neuro-no focal neurological deficit Lab data as noted below. ASSESSMENT & PLAN: Calcaneus Osteomyelitis/NON HEALING RT HEEL ULCER - s/p Debridement 08/19/16 - blood cultures :negative wound culture: Staph aureus , MSSS/Corynebacterium /Enterococcus CULTURE FROM BONE SPECIMEN : identical GRAM STAIN Final 08/20/16-713 RESULT RARE WBCs SEEN RARE GRAM POSITIVE COCCI OR AER/WILL CULT Final 08/24/16-1256 Organism 1 STAPHYLOCOCCUS AUREUS QUANITY FEW SENS SENSITIVITY TO FOLLOW ANAS NO ANAEROBES ISOLATED. +MIXWOUND PLUS LOW COUNTS OF PROBABLE SKIN JIM Organism 2 ENTEROCOCCUS FAECALIS QUANITY RARE SENS SENSITIVITY TO FOLLOW Organism 3 CORYNEBACTERIUM SPECIES QUANITY FEW SENS NO SENSITIVITY TO FOLLOW STAPH AUR E FAECALIS M.I.C. RX M.I.C. RX --------- ------ --------- ------ TRIMET/SULFA <=0.5/9.5 S AMPICILLIN <=2 S * OXACILLIN 0.5 S GENT SYNERGY <=500 S VANCOMYCIN 2 S 2 S PENICILLIN 2 S ERYTHROMYCIN <=0.5 S TETRACYCLINE <=4 S CLINDAMYCIN <=0.5 S DAPTOMYCIN <=0.5 S 1 S STREP SYNERGY >1000 R ENTEROCOCCUS FAECALIS: POSITIVE COMBO 33 Streptomycin Synergy Screen R Gentamicin Synergy Screen S bone culture: Staph, Strep echo: possible vegetation on mitral valve leaflet will need at least 6 weeks antibiotics unable to place PICC line today/resistance noted after 30 cm , unable to remove line as got trapped at last 5 cm ext Vascular surgery consulted for assistance in removal of PICC -appreciate input PICC line removed A port placed by Dr Mendoza ID consulted , appreciate recommendations Abx regimen L IV ceftriaxone 2 g daily and p.o. amoxicillin 500 mg t.i.d./ Rifampin 300 mg PO BID -for additional coverage of staph with likely vegetation. patient will require 6 weeks of antibiotic therapy. A port placed on Monday for emt intermediate ABx tx with IV Rocephin Mitral valve vegetation : - possible mitral valve vegetation on the mitral valve seen in transthoracic ECHO prior hx of Aortic and Mitral valve replacement (Bioprosthetic) blood cultures drawn after antibiotics started consulted Tower Loader Operator--> poor surgical candidate for Mitral valve replacement recommend completing 6 weeks of antibiotics conservative approach repeat ECHO 08/23/2016 : There is a bioprosthetic mitral valve. Bioprosthesis leaflets are thickened but move well. Previously noted mobile density on the mitral valve prosthesis is less apparent on the current study, coannot exclude small vegetation The prosthetic mitral valve is well-seated. There is trace mitral regurgitation. There is a bioprosthetic aortic valve. The prosthetic aortic valve appears to open well. There is no aortic valvular vegetation. ESRD on peritoneal dialysis - Nephrology following cont Peritoneal dialysis Bradycardia: Digoxin discontinued reduced PM dose of Coreg 6.25 mg /cont AM dose of Coreg 12.5 mg daily CAD s/p CABG - hold Lisinopril for marginal BP -on Ranexa - on Aspirin Atrial fibrillation - in sinus rhythm, HR controlled - Coreg dose adjusted and Digoxin-D/ed for bradycardia - Coumadin on hold for elevated INR monitor INR Chronic systolic heart failure EF 35% -40 % - on Lasix 80mg daily monitor volume status Anemia-likely multifactorial but 2/2 mainly to ESRD - on Procrit. - given 2 units PRBC Hg stable at ~9 monitor Severe PAD -s/p recent vascular intervention last week s/p 3 stents placed. on Aspirin DM II -ISS/Lantus, glycemic pharmacy consult placed DVT prop - on Coumadin FULL CODE DISPOSITION : will likely need Rehab/SNF- referral made for [facility] transfer to [facility] Next week Social service consulted for discharge planning Vital Signs: Date Time Temp Pulse Resp B/P Pulse Ox O2 Delivery O2 Flow Rate FiO2 08/29/16 15:04 36.7 96 18 101/62 95 Room Air 08/29/16 11:51 36.4 96 16 126/73 98 Room Air 08/29/16 11:08 36.5 96 16 111/67 100 Room Air 08/29/16 09:00 36.6 95 19 149/75 08/29/16 07:29 Room Air 08/29/16 06:52 36.6 95 19 149/75 99 Room Air 08/28/16 23:40 Room Air 08/28/16 23:01 36.7 97 18 123/72 100 Room Air 08/28/16 21:15 36.5 96 120/70 Lab Results: Results Past 24 Hours Test 08/28/16 17:03 08/28/16 20:38 08/29/16 05:40 08/29/16 06:05 Range/Units Bedside Glucose 148 133 70-99 mg/dl Prothrombin Time 25.5 9.0-12.0 SECONDS Prothromb Time International Ratio 2.3 0.9-1.1 Sodium Level 140 136-145 mmol/L Potassium Level 2.6 3.5-5.1 mmol/L Chloride Level 99 98-107 mmol/L Carbon Dioxide Level 29 21-32 mmol/L Anion Gap 12.0 3-11 mmol/L Blood Urea Nitrogen 40 7-18 mg/dl Creatinine 5.00 0.60-1.40 mg/dl Est Creatinine Clear Calc Drug Dose 13.6 ml/min Estimated GFR () 12.1 Estimated GFR (Non- 10.4 BUN/Creatinine Ratio 8.1 10-20 Random Glucose 174 70-99 mg/dl Calcium Level 8.0 8.5-10.1 mg/dl Test 08/29/16 07:48 08/29/16 12:03 08/29/16 12:42 Range/Units Bedside Glucose 160 149 70-99 mg/dl White Blood Count 13.13 4.8-10.8 K/uL Red Blood Count 3.05 4.7-6.1 M/uL Hemoglobin 9.6 14.0-18.0 g/dL Hematocrit 30.2 42-52 % Mean Corpuscular Volume 99.0 80-100 fL Mean Corpuscular Hemoglobin 31.5 25-34 pg Mean Corpuscular Hemoglobin Concent 31.8 32-36 g/dl Platelet Count 264 130-400 K/uL Mean Platelet Volume 8.8 7.4-10.4 fL Neutrophils (%) (Auto) 75.1 % Lymphocytes (%) (Auto) 15.1 % Monocytes (%) (Auto) 6.2 % Eosinophils (%) (Auto) 2.8 % Basophils (%) (Auto) 0.3 % Neutrophils # (Auto) 9.85 1.4-6.5 K/uL Lymphocytes # (Auto) 1.98 1.2-3.4 K/uL Monocytes # (Auto) 0.82 0.11-0.59 K/uL Eosinophils # (Auto) 0.37 0-0.5 K/uL Basophils # (Auto) 0.04 0-0.2 K/uL RDW Standard Deviation 60.6 36.4-46.3 fL RDW Coefficient of Variation 16.7 11.5-14.5 % Immature Granulocyte % (Auto) 0.5 % Immature Granulocyte # (Auto) 0.07 0.00-0.02 K/uL
[2016-08-28] MEDS: CARVEDILOL 6.25 MG TAB PO SCH (20:44)
[2016-08-29] VITALS (8 sets, daily range): BP systolic 89–149; BP diastolic 56–75; PULSE 94–96; TEMP 35.9–36.7; O2SAT 95–100
[2016-08-29 06:16] LABS: INR 2.3 (0.9-1.1); PROTHROMBIN TIME (PATIENT) 25.5 SECONDS (9.0-12.0)
[2016-08-29 06:55] LABS: BUN/CREATININE RATIO 8.1 (10-20); POTASSIUM 2.6 mmol/L (3.5-5.1)
[2016-08-29] MEDS: MULTIVITAMIN TAB PO SCH (08:41)
[2016-08-29] MEDS: FUROSEMIDE 80 MG TAB PO SCH (08:41)
[2016-08-29] MEDS: PANTOprazole SOD 40 MG TAB PO SCH (08:41)
[2016-08-29] MEDS: CHOLECALCIFEROL 1000 INTER.UNIT TAB PO SCH (08:42)
[2016-08-29] MEDS: CALCIUM ACETATE 667MG GELCAP PO SCH ×3 (08:42→16:46)
[2016-08-29] MEDS: OMEGA-3 (PURIFIED FISH OIL) 1 GM CAP PO SCH (08:42)
[2016-08-29] MEDS: BOOST GLUCOSE CONTROL PO SCH ×2 (08:42→17:45)
[2016-08-29] MEDS: RANOLAZINE 500 MG ER TAB PO SCH ×2 (08:43→20:56)
[2016-08-29] MEDS: AcetaZOLAMIDE 250 MG TAB PO SCH ×2 (08:43→20:57)
[2016-08-29] MEDS: CITALOPRAM 20 MG TAB PO SCH (08:43)
[2016-08-29] MEDS: RIFAMPIN 300 MG CAP PO SCH ×2 (08:43→20:57)
[2016-08-29] MEDS: AMOXICILLIN 250 MG CAP PO SCH ×2 (08:44→20:57)
[2016-08-29] MEDS: CARVEDILOL 12.5 MG TAB PO SCH (08:44)
[2016-08-29] MEDS: POTASSIUM CHLORIDE 20 MEQ TABCR PO SCH ×2 (08:53→13:11)
[2016-08-29] MEDS: INSULIN ASPART 100 UNITS/ML 3 ML PEN SC SCH ×4 (09:03→20:59)
[2016-08-29] MEDS: INSULIN GLARGINE SOLOSTAR 100 UNITS/ML 3 ML PEN SC SCH (09:03)
--- NOTE | 2016-08-29 09:47 | Nephrology Progress Note ---
Nephrology Progress Note Date of Service: Aug 29, 2016. Subjective seen on rounds this am about 730; no c/o weakness or dyspnea; moving bowels daily; denies abd pain. appetite ok for now; Objective Date Time Temp Pulse Resp B/P Pulse Ox O2 Delivery O2 Flow Rate FiO2 08/29/16 07:29 Room Air 08/29/16 06:52 36.6 95 19 149/75 99 Room Air 08/28/16 23:40 Room Air 08/28/16 23:01 36.7 97 18 123/72 100 Room Air 08/28/16 21:15 36.5 96 120/70 08/28/16 16:30 Room Air 08/28/16 14:59 36.5 95 18 107/66 100 Room Air 08/28/16 14:34 101 121/74 08/28/16 14:27 98 100 08/28/16 10:30 36.5 96 15 122/71 Physical Exam: General-aaox3, on RA, nad Eyes-no scleral icterus ENT-mmm, edentulous Neck-supple Lungs-a few R basilar crx Heart- systolic murmur, RRR Abdomen-pd catheter in place, soft, nontender, +BS Extremities-right heel ulcer not evaluated; BLE wrapped Neuro-simpson, fluent speech Current Inpatient Medications Medications (Trade) Dose Ordered Sig/Andrei Route Start Time Stop Time Status Last Admin Dose Admin Acetaminophen (Tylenol Tab) 650 mg Q4H PRN PO 08/15/16 00:15 09/14/16 00:14 Polyethylene (Miralax Powder Packet) 17 gm DAILY PRN PO 08/15/16 00:15 09/14/16 00:14 08/18/16 09:03 17 GM Ondansetron HCl (Zofran Inj) 4 mg Q6H PRN IV 08/15/16 00:15 09/14/16 00:14 Glucose (Glucose 40% Gel) 15-30 GRAMS 15 GRAMS... UD PRN PO 08/15/16 00:15 09/14/16 00:14 Glucose (Glucose Chew Tab) 4-8 Tablets 4 Tabl... UD PRN PO 08/15/16 00:15 09/14/16 00:14 Dextrose (Dextrose 50% 50ML Syringe) 25-50ML OF 50% DW IV FOR... UD PRN IV 08/15/16 00:15 09/14/16 00:14 Glucagon (Glucagon Inj) 1 mg UD PRN SQ 08/15/16 00:15 09/14/16 00:14 Miscellaneous Information (Consult Glycemic Management Pharmacy) 1 ea DAILY PRN N/A 08/15/16 02:18 09/14/16 02:17 Acetazolamide (Diamox Tab) 250 mg BID PO 08/15/16 09:00 09/14/16 08:59 08/29/16 08:43 250 MG Calcium Acetate (Phoslo Cap) 667 mg AC PO 08/15/16 08:00 09/14/16 07:59 08/29/16 08:42 667 MG Fish Oil ([place]-3 (Purified Fish Oil) Cap) 1 gm DAILY PO 08/15/16 09:00 09/14/16 08:59 08/29/16 08:42 1 GM Folic Acid (Folvite Tab) 1 mg DAILY PO 08/15/16 09:00 09/14/16 08:59 08/29/16 08:43 1 MG Multivitamins (Multivitamin Tab) 1 tab DAILY PO 08/15/16 09:00 09/14/16 08:59 08/29/16 08:41 1 TAB Ranolazine (Ranexa ER Tab) 500 mg BID PO 08/15/16 09:00 09/14/16 08:59 08/29/16 08:43 500 MG Cholecalciferol (Vitamin D Tab) 1,000 inter.unit QAM PO 08/15/16 09:00 09/14/16 08:59 08/29/16 08:42 1,000 INTER.UNIT Citalopram Hydrobromide (celeXA TAB) 20 mg QAM PO 08/15/16 09:00 09/14/16 08:59 08/29/16 08:43 20 MG Pantoprazole Sodium (Protonix Tab) 40 mg QAM PO 08/15/16 09:00 09/14/16 08:59 08/29/16 08:41 40 MG Morphine Sulfate (MoRPHine SULFATE INJ) 2 mg Q6H PRN IV 08/15/16 15:45 08/29/16 15:44 Tramadol HCl (Ultram Tab) 50 mg Q6H PRN PO 08/15/16 15:45 09/14/16 15:44 Insulin Glargine (Lantus Solostar Pen) SEE PROTOCOL DAILY SC 08/18/16 09:00 09/17/16 08:59 Future hold 08/29/16 09:03 15 UNIT Furosemide (Lasix Tab) 80 mg QAM PO 08/23/16 09:00 09/22/16 08:59 08/29/16 08:41 80 MG Carvedilol (Coreg Tab) 12.5 mg DAILY@0900 PO 08/23/16 09:00 09/22/16 08:59 08/29/16 08:44 12.5 MG Carvedilol 6.25 mg 6.25 mg DAILY@2100 PO 08/22/16 21:00 09/21/16 20:59 08/28/16 20:44 6.25 MG Ceftriaxone Sodium/Dextrose (Rocephin Inj/D5 50ml) 70 ml @ 100 mls/hr DAILY@1400 IV 08/23/16 14:00 10/04/16 13:59 08/28/16 13:41 100 MLS/HR Rifampin (Rifadin Cap) 300 mg BID PO 08/23/16 21:00 10/04/16 20:59 08/29/16 08:43 300 MG Miscellaneous Information 1 ea UD PRN N/A 08/23/16 16:15 09/22/16 16:14 Amoxicillin (Amoxil Cap) 250 mg BID PO 08/24/16 21:00 10/04/16 15:59 08/29/16 08:44 250 MG Miconazole Nitrate (Desenex Powder) 1 appln UD PRN EXT 08/24/16 18:45 09/23/16 18:44 Enteral Nutritional Formula (Boost Glucose Control) 1 can BIDM PO 08/26/16 17:45 09/25/16 17:44 08/29/16 08:42 1 CAN Insulin Aspart (novoLOG ASPART) SLIDING SCALE If C... ACHS SC 08/26/16 21:45 09/25/16 21:44 08/29/16 09:03 3 UNITS Heparin Sodium (Porcine) (Heparin 100 Unit/ml 5ml Flush) 5 ml PRN PRN IV 08/27/16 14:15 09/26/16 14:14 08/29/16 05:57 5 ML Warfarin Sodium (Coumadin Tab) 2.5 mg DAILY@16 PO 08/28/16 16:00 09/27/16 15:59 08/28/16 16:39 2.5 MG Potassium Chloride (Klor-Con Tab) 40 meq Q4H PO 08/29/16 08:00 08/29/16 12:45 08/29/16 08:53 40 MEQ Last 24 Hours Test 08/28/16 11:52 08/28/16 17:03 08/28/16 20:38 08/29/16 05:40 Bedside Glucose 157 mg/dl 148 mg/dl 133 mg/dl Prothrombin Time 25.5 SECONDS Prothromb Time International Ratio 2.3 Sodium Level 140 mmol/L Potassium Level 2.6 mmol/L Chloride Level 99 mmol/L Carbon Dioxide Level 29 mmol/L Anion Gap 12.0 mmol/L Blood Urea Nitrogen 40 mg/dl Creatinine 5.00 mg/dl Est Creatinine Clear Calc Drug Dose 13.6 ml/min Estimated GFR () 12.1 Estimated GFR (Non- 10.4 BUN/Creatinine Ratio 8.1 Random Glucose 174 mg/dl Calcium Level 8.0 mg/dl Test 08/29/16 07:48 Bedside Glucose 160 mg/dl Assessment & Plan 76 y/o M w/ ESRD on PD, severe PAD, cardiac disease including EF 40% - bioprosthetic MVR - CAD, chronic wounds, DM admitted with R calcaneal osteomyelitis and distal R Achilles tendon rupture >> found to have possible MV vegetation. On ceftriaxone rifampin and amoxicillin and pt likely to need >4 wks IV abtx. has infusaport ESRD -PD tonight for light/moderate UF 12hrs 5 exchanges; no LBF -continue outpt lasix, binders, D analogues, renal vitamin -clarify indication for acetazolamide > often ocular; pt can give few details Anemia of ESRD -no tranfusion indicated -hgb daily -has low iron stores; will give venofer -cont aggressive epo dosing to be managed by renal and dosed once iron stores established Osteomyelitis R calcaneus and R Achilles tendon frx -per hospital and multiple consulting services Appreciate consult; will follow with you.
[2016-08-29] MEDS ORDERED: IRON SUCROSE IV SCH (10:00)
[2016-08-29] MEDS: IRON SUCROSE INJ 300 MG in SODIUM CHLORIDE 0.9% 250ML IV SCH (10:34)
--- NOTE | 2016-08-29 12:34 | Infectious Disease Progress Nt ---
Progress Note Date of Service Aug 29, 2016. Subjective Pt evaluation today including: conversation w/ patient, physical exam, chart review, lab review, review of studies, review of inpatient medication list Creatinine was 5.00 today. He continues on PD dialysis. He is anticipating D/C to [facility]. Right sided port was placed for IV abx therapy. This operative report was reviewed today. Guidance u/s report was also reviewed. The patient would prefer to go home than go to rehab. He states that he is having no pain currently. All Other Systems: Reviewed and Negative Medications Current Inpatient Medications Medications (Trade) Dose Ordered Sig/Andrei Route Start Time Stop Time Status Last Admin Dose Admin Acetaminophen (Tylenol Tab) 650 mg Q4H PRN PO 08/15/16 00:15 09/14/16 00:14 Polyethylene (Miralax Powder Packet) 17 gm DAILY PRN PO 08/15/16 00:15 09/14/16 00:14 08/18/16 09:03 17 GM Ondansetron HCl (Zofran Inj) 4 mg Q6H PRN IV 08/15/16 00:15 09/14/16 00:14 Glucose (Glucose 40% Gel) 15-30 GRAMS 15 GRAMS... UD PRN PO 08/15/16 00:15 09/14/16 00:14 Glucose (Glucose Chew Tab) 4-8 Tablets 4 Tabl... UD PRN PO 08/15/16 00:15 09/14/16 00:14 Dextrose (Dextrose 50% 50ML Syringe) 25-50ML OF 50% DW IV FOR... UD PRN IV 08/15/16 00:15 09/14/16 00:14 Glucagon (Glucagon Inj) 1 mg UD PRN SQ 08/15/16 00:15 09/14/16 00:14 Miscellaneous Information (Consult Glycemic Management Pharmacy) 1 ea DAILY PRN N/A 08/15/16 02:18 09/14/16 02:17 Acetazolamide (Diamox Tab) 250 mg BID PO 08/15/16 09:00 09/14/16 08:59 08/29/16 08:43 250 MG Calcium Acetate (Phoslo Cap) 667 mg AC PO 08/15/16 08:00 09/14/16 07:59 08/29/16 08:42 667 MG Fish Oil ([place]-3 (Purified Fish Oil) Cap) 1 gm DAILY PO 08/15/16 09:00 09/14/16 08:59 08/29/16 08:42 1 GM Folic Acid (Folvite Tab) 1 mg DAILY PO 08/15/16 09:00 09/14/16 08:59 08/29/16 08:43 1 MG Multivitamins (Multivitamin Tab) 1 tab DAILY PO 08/15/16 09:00 09/14/16 08:59 08/29/16 08:41 1 TAB Ranolazine (Ranexa ER Tab) 500 mg BID PO 08/15/16 09:00 09/14/16 08:59 08/29/16 08:43 500 MG Cholecalciferol (Vitamin D Tab) 1,000 inter.unit QAM PO 08/15/16 09:00 09/14/16 08:59 08/29/16 08:42 1,000 INTER.UNIT Citalopram Hydrobromide (celeXA TAB) 20 mg QAM PO 08/15/16 09:00 09/14/16 08:59 08/29/16 08:43 20 MG Pantoprazole Sodium (Protonix Tab) 40 mg QAM PO 08/15/16 09:00 09/14/16 08:59 08/29/16 08:41 40 MG Morphine Sulfate (MoRPHine SULFATE INJ) 2 mg Q6H PRN IV 08/15/16 15:45 08/29/16 15:44 Tramadol HCl (Ultram Tab) 50 mg Q6H PRN PO 08/15/16 15:45 09/14/16 15:44 Insulin Glargine (Lantus Solostar Pen) SEE PROTOCOL DAILY SC 08/18/16 09:00 09/17/16 08:59 Future hold 08/29/16 09:03 15 UNIT Furosemide (Lasix Tab) 80 mg QAM PO 08/23/16 09:00 09/22/16 08:59 08/29/16 08:41 80 MG Carvedilol (Coreg Tab) 12.5 mg DAILY@0900 PO 08/23/16 09:00 09/22/16 08:59 08/29/16 08:44 12.5 MG Carvedilol 6.25 mg 6.25 mg DAILY@2100 PO 08/22/16 21:00 09/21/16 20:59 08/28/16 20:44 6.25 MG Ceftriaxone Sodium/Dextrose (Rocephin Inj/D5 50ml) 70 ml @ 100 mls/hr DAILY@1400 IV 08/23/16 14:00 10/04/16 13:59 08/28/16 13:41 100 MLS/HR Rifampin (Rifadin Cap) 300 mg BID PO 08/23/16 21:00 10/04/16 20:59 08/29/16 08:43 300 MG Miscellaneous Information 1 ea UD PRN N/A 08/23/16 16:15 09/22/16 16:14 Amoxicillin (Amoxil Cap) 250 mg BID PO 08/24/16 21:00 10/04/16 15:59 08/29/16 08:44 250 MG Miconazole Nitrate (Desenex Powder) 1 appln UD PRN EXT 08/24/16 18:45 09/23/16 18:44 Enteral Nutritional Formula (Boost Glucose Control) 1 can BIDM PO 08/26/16 17:45 09/25/16 17:44 08/29/16 08:42 1 CAN Insulin Aspart (novoLOG ASPART) SLIDING SCALE If C... ACHS SC 08/26/16 21:45 09/25/16 21:44 08/29/16 09:03 3 UNITS Heparin Sodium (Porcine) (Heparin 100 Unit/ml 5ml Flush) 5 ml PRN PRN IV 08/27/16 14:15 09/26/16 14:14 08/29/16 05:57 5 ML Warfarin Sodium (Coumadin Tab) 2.5 mg DAILY@16 PO 08/28/16 16:00 09/27/16 15:59 08/28/16 16:39 2.5 MG Potassium Chloride 40 meq 40 meq Q4H PO 08/29/16 08:00 08/29/16 12:45 08/29/16 08:53 40 MEQ Iron Sucrose/ Sodium Chloride (Venofer Inj/Nss 250ml) 265 ml @ 176.667 mls/hr DAILY@1100 IV 08/29/16 11:00 08/31/16 15:00 08/29/16 10:34 176.667 MLS/HR Objective Vital Signs Date Time Temp Pulse Resp B/P Pulse Ox O2 Delivery O2 Flow Rate FiO2 08/29/16 11:51 36.4 96 16 126/73 98 Room Air 08/29/16 11:08 36.5 96 16 111/67 100 Room Air 08/29/16 09:00 36.6 95 19 149/75 08/29/16 07:29 Room Air 08/29/16 06:52 36.6 95 19 149/75 99 Room Air 08/28/16 23:40 Room Air 08/28/16 23:01 36.7 97 18 123/72 100 Room Air 08/28/16 21:15 36.5 96 120/70 08/28/16 16:30 Room Air 08/28/16 14:59 36.5 95 18 107/66 100 Room Air 08/28/16 14:34 101 121/74 08/28/16 14:27 98 100 Physical Exam General Appearance: WD/WN, no apparent distress Eyes: normal inspection, sclerae normal ENT: hearing grossly normal Neck: supple, trachea midline Respiratory/Chest: chest non-tender, lungs clear, normal breath sounds, no respiratory distress, no accessory muscle use Cardiovascular: regular rate, rhythm, + systolic murmur (soft) Abdomen: normal bowel sounds, non tender, soft Extremities: + pertinent finding (dressing on right heel) Neurologic/Psychiatric: alert, normal mood/affect Skin: normal color, warm/dry, no rash Laboratory Results Last 24 Hours Test 08/28/16 17:03 08/28/16 20:38 08/29/16 05:40 08/29/16 07:48 Bedside Glucose 148 mg/dl 133 mg/dl 160 mg/dl Prothrombin Time 25.5 SECONDS Prothromb Time International Ratio 2.3 Sodium Level 140 mmol/L Potassium Level 2.6 mmol/L Chloride Level 99 mmol/L Carbon Dioxide Level 29 mmol/L Anion Gap 12.0 mmol/L Blood Urea Nitrogen 40 mg/dl Creatinine 5.00 mg/dl Est Creatinine Clear Calc Drug Dose 13.6 ml/min Estimated GFR () 12.1 Estimated GFR (Non- 10.4 BUN/Creatinine Ratio 8.1 Random Glucose 174 mg/dl Calcium Level 8.0 mg/dl Test 08/29/16 12:03 Bedside Glucose 149 mg/dl Assessment and Plan Patient with right distal Achilles tendon rupture, overlying wound, calcaneal osteomyelitis, 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 Surgical cultures growing MSSA and Enterococcus which is sensitive to ampicillin. Currently the patient is on IV Ceftriaxone 2 g daily, PO Amoxicillin 500 mg TID, and PO Rifampin 300 mg BID. He is tolerating these well. He will need to complete 6 weeks of IV therapy and likely continued antibiotic therapy after discontinuation of IV's. He will need ID follow up in about 1-2 weeks after D/C. Otherwise, he is OK for D/C from ID perspective. case reviewed and agree with above assessment.
[2016-08-29 13:02] LABS: BASO % 0.3 %; BASO ABS # 0.04 K/uL (0-0.2); COMPLETE YES; EOS % 2.8 %; HEMATOCRIT 30.2 % (42-52); IG% 0.5 %; LYMPH % 15.1 %; LYMPH ABS # 1.98 K/uL (1.2-3.4); MEAN CORPUSCULAR HEMOGLOBIN 31.5 pg (25-34); MEAN CORPUSCULAR HGB CONC 31.8 g/dl (32-36); MEAN PLATELET VOLUME 8.8 fL (7.4-10.4); MONO % 6.2 %; NEUT % 75.1 %; PLATELET COUNT 264 K/uL (130-400); RED BLOOD COUNT 3.05 M/uL (4.7-6.1); WHITE BLOOD COUNT 13.13 K/uL (4.8-10.8)
[2016-08-29] MEDS: CEFTRIAXONE SOD INJ 2,000 MG in DEXTROSE 5% 50ML 50 ML IV SCH (13:41)
--- NOTE | 2016-08-29 15:32 | Pharmacy Progress Note ---
Glycemic: Assessment & Plan Date of Service Aug 29, 2016. Assessment & Plan The patient received 37 units of insulin on 08/27, 29 units on 08/28. BSGs ranging 133 - 174 mg/dl over the past 24hrs. POD#3 A-port placement. Variable po intake,averaging 1 serving Boost GC daily. Still on antibiotics-plan at least 6 weeks of therapy. Awaiting bed at rehab. * Basal insulin: Lantus per protocol every am if BSG is less than 120, give 10 units 120-180, give 15 units over 180, give 20 units * Correctional Insulin: Novolog Correction per scale ACHS Goal Range: Low 110 mg/dL - High 140 mg/dL Correction Factor: 30 mg/dL/unit * Prandial insulin: Per carb ratio of 1 unit per 10 grams CHO consumed BSGs continue to improve, no changes needed to inpatient regimen at this time. Pharmacy will continue to monitor patient daily and write orders per [facility] inpatient glycemic control protocol. Thanks. * Please note that the plan above was derived based on current level of insulin resistance and hospital stress. These recommendations are appropriate for inpatient admission only. Plan of care upon discharge will need to be reassessed to avoid potential outpatient hypo/hyperglycemia.
[2016-08-29] MEDS: WARFARIN SOD 2.5 MG TAB PO SCH (16:47)
[2016-08-29 16:58] LABS: BUN/CREATININE RATIO 8.1 (10-20); CREATININE 5.2 mg/dl (0.60-1.40)
[2016-08-29] MEDS ORDERED: CRG625 PO (19:29)
[2016-08-29] MEDS ORDERED: RFM300 PO (19:29)
[2016-08-29] MEDS ORDERED: CMD25 PO (19:29)
[2016-08-29] MEDS ORDERED: AMX250 PO (19:29)
[2016-08-29] MEDS ORDERED: CRG125 PO (19:29)
[2016-08-29] MEDS ORDERED: CEFT1INJ57 IV ×2 (19:31→19:32)
--- NOTE | 2016-08-29 19:36 | Progress Note ---
Internal Med Progress Note Date of Service: Aug 29, 2016. Provider Documentation: SUBJECTIVE: more awake and alert today smiling able to answer questions denies of any pain or discomfort family present at bedside -reports that pt's appetite has improved OBJECTIVE: Vital Signs-as noted below Exam: General-elderly male , baseline dementia ,no apparent distress Eyes-sclera non icteric ENT-NAD Neck-no JVD Lungs-diminished Heart-regular Abdomen-soft, non tender Extremities-rt foot s/p I&D , surgical bandage present Neuro-no focal neurological deficit Lab data as noted below. ASSESSMENT & PLAN: Calcaneus Osteomyelitis/NON HEALING RT HEEL ULCER - s/p Debridement 08/19/16 - blood cultures :negative wound culture: Staph aureus , MSSS/Corynebacterium /Enterococcus CULTURE FROM BONE SPECIMEN : identical GRAM STAIN Final 08/20/16-713 RESULT RARE WBCs SEEN RARE GRAM POSITIVE COCCI OR AER/WILL CULT Final 08/24/16-1256 Organism 1 STAPHYLOCOCCUS AUREUS QUANITY FEW SENS SENSITIVITY TO FOLLOW ANAS NO ANAEROBES ISOLATED. +MIXWOUND PLUS LOW COUNTS OF PROBABLE SKIN JIM Organism 2 ENTEROCOCCUS FAECALIS QUANITY RARE SENS SENSITIVITY TO FOLLOW Organism 3 CORYNEBACTERIUM SPECIES QUANITY FEW SENS NO SENSITIVITY TO FOLLOW STAPH AUR E FAECALIS M.I.C. RX M.I.C. RX --------- ------ --------- ------ TRIMET/SULFA <=0.5/9.5 S AMPICILLIN <=2 S * OXACILLIN 0.5 S GENT SYNERGY <=500 S VANCOMYCIN 2 S 2 S PENICILLIN 2 S ERYTHROMYCIN <=0.5 S TETRACYCLINE <=4 S CLINDAMYCIN <=0.5 S DAPTOMYCIN <=0.5 S 1 S STREP SYNERGY >1000 R ENTEROCOCCUS FAECALIS: POSITIVE COMBO 33 Streptomycin Synergy Screen R Gentamicin Synergy Screen S bone culture: Staph, Strep echo: possible vegetation on mitral valve leaflet will need at least 6 weeks antibiotics unable to place PICC line today/resistance noted after 30 cm , unable to remove line as got trapped at last 5 cm ext Vascular surgery consulted for assistance in removal of PICC -appreciate input PICC line removed A port placed by Dr Mendoza ID consulted , appreciate recommendations Abx regimen L IV ceftriaxone 2 g daily and p.o. amoxicillin 500 mg t.i.d./ Rifampin 300 mg PO BID -for additional coverage of staph with likely vegetation. patient will require 6 weeks of antibiotic therapy. will need ID eval in 4-6 weeks prior to completion of IV abx Oral abx should be continued beyond IV Rocephin treatment and end date will be adjusted after ID follow up in office A port placed on Monday for manager terminal ABx tx with IV Rocephin ortho following ; appreciate input Pt will possibly need a delayed repair of the Achilles Tendon if the infection can be cleared and soft tissue coverage is possible. Mitral valve vegetation : - possible mitral valve vegetation on the mitral valve seen in transthoracic ECHO prior hx of Aortic and Mitral valve replacement (Bioprosthetic) blood cultures drawn after antibiotics started consulted Director [employer]--> poor surgical candidate for Mitral valve replacement recommend completing 6 weeks of antibiotics conservative approach repeat ECHO 08/23/2016 : There is a bioprosthetic mitral valve. Bioprosthesis leaflets are thickened but move well. Previously noted mobile density on the mitral valve prosthesis is less apparent on the current study, coannot exclude small vegetation The prosthetic mitral valve is well-seated. There is trace mitral regurgitation. There is a bioprosthetic aortic valve. The prosthetic aortic valve appears to open well. There is no aortic valvular vegetation. ESRD on peritoneal dialysis - Nephrology following cont Peritoneal dialysis LOW K: replaced by Nephrology follow lytes Bradycardia: Digoxin discontinued reduced PM dose of Coreg 6.25 mg /cont AM dose of Coreg 12.5 mg daily CAD s/p CABG - hold Lisinopril for marginal BP -on Ranexa - on Aspirin Atrial fibrillation - in sinus rhythm, HR controlled - Coreg dose adjusted and Digoxin-D/ed for bradycardia - Coumadin continued monitor INR Chronic systolic heart failure EF 35% -40 % - on Lasix 80mg daily monitor volume status Anemia-likely multifactorial but 2/2 mainly to ESRD - on Procrit. - given 2 units PRBC Hg stable at ~9 monitor Severe PAD -s/p recent vascular intervention last week s/p 3 stents placed. on Aspirin DM II -ISS/Lantus, glycemic pharmacy consult placed DVT prop - on Coumadin FULL CODE DISPOSITION : will likely need Rehab/SNF- referral made for [facility] transfer to [facility] in next 1-2 days Social service consulted for discharge planning Vital Signs: Date Time Temp Pulse Resp B/P Pulse Ox O2 Delivery O2 Flow Rate FiO2 08/29/16 15:04 36.7 96 18 101/62 95 Room Air 08/29/16 11:51 36.4 96 16 126/73 98 Room Air 08/29/16 11:08 36.5 96 16 111/67 100 Room Air 08/29/16 09:00 36.6 95 19 149/75 08/29/16 07:29 Room Air 08/29/16 06:52 36.6 95 19 149/75 99 Room Air 08/28/16 23:40 Room Air 08/28/16 23:01 36.7 97 18 123/72 100 Room Air 08/28/16 21:15 36.5 96 120/70 Lab Results: Results Past 24 Hours Test 08/28/16 20:38 08/29/16 05:40 08/29/16 06:05 08/29/16 07:48 Range/Units Bedside Glucose 133 160 70-99 mg/dl Prothrombin Time 25.5 9.0-12.0 SECONDS Prothromb Time International Ratio 2.3 0.9-1.1 Sodium Level 140 140 136-145 mmol/L Potassium Level 2.6 3.0 3.5-5.1 mmol/L Chloride Level 99 100 98-107 mmol/L Carbon Dioxide Level 29 29 21-32 mmol/L Anion Gap 12.0 11.0 3-11 mmol/L Blood Urea Nitrogen 40 43 7-18 mg/dl Creatinine 5.00 5.20 0.60-1.40 mg/dl Est Creatinine Clear Calc Drug Dose 13.6 13.1 ml/min Estimated GFR () 12.1 11.5 Estimated GFR (Non- 10.4 9.9 BUN/Creatinine Ratio 8.1 8.1 10-20 Random Glucose 174 136 70-99 mg/dl Calcium Level 8.0 8.0 8.5-10.1 mg/dl Test 08/29/16 12:03 08/29/16 12:42 08/29/16 16:52 Range/Units Bedside Glucose 149 138 70-99 mg/dl White Blood Count 13.13 4.8-10.8 K/uL Red Blood Count 3.05 4.7-6.1 M/uL Hemoglobin 9.6 14.0-18.0 g/dL Hematocrit 30.2 42-52 % Mean Corpuscular Volume 99.0 80-100 fL Mean Corpuscular Hemoglobin 31.5 25-34 pg Mean Corpuscular Hemoglobin Concent 31.8 32-36 g/dl Platelet Count 264 130-400 K/uL Mean Platelet Volume 8.8 7.4-10.4 fL Neutrophils (%) (Auto) 75.1 % Lymphocytes (%) (Auto) 15.1 % Monocytes (%) (Auto) 6.2 % Eosinophils (%) (Auto) 2.8 % Basophils (%) (Auto) 0.3 % Neutrophils # (Auto) 9.85 1.4-6.5 K/uL Lymphocytes # (Auto) 1.98 1.2-3.4 K/uL Monocytes # (Auto) 0.82 0.11-0.59 K/uL Eosinophils # (Auto) 0.37 0-0.5 K/uL Basophils # (Auto) 0.04 0-0.2 K/uL RDW Standard Deviation 60.6 36.4-46.3 fL RDW Coefficient of Variation 16.7 11.5-14.5 % Immature Granulocyte % (Auto) 0.5 % Immature Granulocyte # (Auto) 0.07 0.00-0.02 K/uL
--- NOTE | 2016-08-29 19:39 | Discharge Instructions ---
Discharge Instructions Date of Service Aug 29, 2016. Admission Reason for Admission: Osteomyelitis Discharge Discharge Diagnosis / Problem: CALCANEOUS OSTEOMYELITIS /NON HEALING RT ANKLE ULCER Discharge Goals Goal(s): Improve disease control, Diagnostic testing, Therapeutic intervention Activity Recommendations Activity Level: Assistance Required Therapies: Physical Therapy, Occupational Therapy Weightbearing Status: Right non-weightbearing . Additional Information Patient informed of condition: Yes Advance Directives: No DNR: No Level of Care: Acute Rehab Communicable Disease: No Prognosis: Stable Martino Catheter: No Instructions / Follow-Up Instructions / Follow-Up FOLLOW UP WITH FAMILY PHYSICIAN AFTER DISCHARGE FORM REHAB FOLLOW UP WITH INFECTIOUS DISEASE IN 4-6 WEEKS, BEFORE COMPLETION OF IV ANTIBIOTIC THERAPY DAILY DRESSING PETIT OF RT HEEL WOUND : CLEANSE WITH SALINE, USE BETADINE COVER WITH GAUZE KEEP HEEL ELEVATED , OFF LOAD FOLLOW UP WITH ORTHOPEDICS IN 4-6 WEEKS FOR FOLLOW UP Current Hospital Diet Patient's current hospital diet: Renal Diet, Diabetes Type 2 Diet Discharge Diet Recommended Diet: Diabetes Type 2 Diet, Renal Diet Procedures Procedures Performed: Insertion of Infusaport, Right Internal Jugular Approach, Ultrasound Localization Of Right Internal Jugular Vein, Fluoroscopy for Positioning, Moderate Concious Sedation [id number] Pending Studies Studies pending at discharge: no Laboratory Results Hemoglobin A1c Test 08/15/16 05:50 Range/Units Estimated Average Glucose 137 mg/dl Hemoglobin A1c 6.4 H 4.5-5.6 % Medical Emergencies . Who to Call and When: Medical Emergencies: If at any time you feel your situation is an emergency, please call 911 immediately. . Non-Emergent Contact Non-Emergency issues call your: Primary Care Provider . . "Provider Documentation" section prepared by Ashley Patton. Core Measure Problem Core Measures: None
[2016-08-29] MEDS ORDERED: ULT50X PO (19:41)
[2016-08-29] MEDS: CARVEDILOL 6.25 MG TAB PO SCH (20:56)
[2016-08-30] VITALS (8 sets, daily range): BP systolic 102–149; BP diastolic 64–77; PULSE 92–99; TEMP 36.3–36.8; O2SAT 96–100
[2016-08-30] MEDS ORDERED: POTASSIUM CHLORIDE 10 MEQ TABCR PO STA (02:55)
[2016-08-30 06:14] LABS: MEAN CORPUSCULAR HEMOGLOBIN 30.7 pg (25-34); MEAN CORPUSCULAR HGB CONC 30.7 g/dl (32-36); MEAN PLATELET VOLUME 9.3 fL (7.4-10.4); PLATELET COUNT 295 K/uL (130-400); WHITE BLOOD COUNT 11.05 K/uL (4.8-10.8)
[2016-08-30 06:28] LABS: INR 1.7 (0.9-1.1); PROTHROMBIN TIME (PATIENT) 18.4 SECONDS (9.0-12.0)
[2016-08-30 07:39] LABS: BUN/CREATININE RATIO 7.4 (10-20); CALCIUM 8.4 mg/dl (8.5-10.1); CREATININE 5.6 mg/dl (0.60-1.40); POTASSIUM 3.1 mmol/L (3.5-5.1)
[2016-08-30] MEDS: CALCIUM ACETATE 667MG GELCAP PO SCH ×3 (08:31→17:48)
[2016-08-30] MEDS: BOOST GLUCOSE CONTROL PO SCH ×2 (08:31→17:48)
[2016-08-30] MEDS: PANTOprazole SOD 40 MG TAB PO SCH (08:35)
[2016-08-30] MEDS: FUROSEMIDE 80 MG TAB PO SCH (08:36)
[2016-08-30] MEDS: MULTIVITAMIN TAB PO SCH (08:37)
[2016-08-30] MEDS: CITALOPRAM 20 MG TAB PO SCH (08:37)
[2016-08-30] MEDS: CARVEDILOL 12.5 MG TAB PO SCH ×2 (08:37→09:00)
[2016-08-30] MEDS: AcetaZOLAMIDE 250 MG TAB PO SCH ×2 (08:37→21:15)
[2016-08-30] MEDS: AMOXICILLIN 250 MG CAP PO SCH ×2 (08:38→21:15)
[2016-08-30] MEDS: OMEGA-3 (PURIFIED FISH OIL) 1 GM CAP PO SCH (08:38)
[2016-08-30] MEDS: RANOLAZINE 500 MG ER TAB PO SCH ×2 (08:39→21:14)
[2016-08-30] MEDS: CHOLECALCIFEROL 1000 INTER.UNIT TAB PO SCH (08:39)
[2016-08-30] MEDS: RIFAMPIN 300 MG CAP PO SCH ×2 (08:39→21:14)
[2016-08-30] MEDS: POTASSIUM CHLORIDE 20 MEQ TABCR PO SCH ×3 (09:01→21:16)
--- NOTE | 2016-08-30 09:13 | Dialysis Progress Note ---
Nephrology Dialysis Note Date of Service: Aug 30, 2016. Subjective no c/o weakness or dyspnea; moving bowels daily including this am; denies abd pain. appetite ok for now; seen on PD Objective Date Time Temp Pulse Resp B/P Pulse Ox O2 Delivery O2 Flow Rate FiO2 08/30/16 09:08 96 102/66 08/30/16 07:20 Room Air 08/30/16 06:50 36.7 96 22 121/71 99 Room Air 08/30/16 00:55 Room Air 08/29/16 23:30 36.7 96 18 127/73 99 Room Air 08/29/16 20:52 94 126/70 08/29/16 19:30 Room Air 08/29/16 15:04 36.7 96 18 101/62 95 Room Air 08/29/16 11:51 36.4 96 16 126/73 98 Room Air 08/29/16 11:08 36.5 96 16 111/67 100 Room Air Physical Exam: General-aaox3, on RA, nad, up in chair about to start brkfst Eyes-no scleral icterus ENT-mmm, edentulous Neck-supple Lungs-diminished but clear Heart- systolic murmur, RRR Abdomen-pd catheter in place, soft, nontender, +BS Extremities-right heel ulcer not evaluated; wrappings mostly off today except minimal bandaging; no edema Neuro-simpson, fluent speech Current Inpatient Medications Medications (Trade) Dose Ordered Sig/Andrei Route Start Time Stop Time Status Last Admin Dose Admin Acetaminophen (Tylenol Tab) 650 mg Q4H PRN PO 08/15/16 00:15 09/14/16 00:14 Polyethylene (Miralax Powder Packet) 17 gm DAILY PRN PO 08/15/16 00:15 09/14/16 00:14 08/18/16 09:03 17 GM Ondansetron HCl (Zofran Inj) 4 mg Q6H PRN IV 08/15/16 00:15 09/14/16 00:14 Glucose (Glucose 40% Gel) 15-30 GRAMS 15 GRAMS... UD PRN PO 08/15/16 00:15 09/14/16 00:14 Glucose (Glucose Chew Tab) 4-8 Tablets 4 Tabl... UD PRN PO 08/15/16 00:15 09/14/16 00:14 Dextrose (Dextrose 50% 50ML Syringe) 25-50ML OF 50% DW IV FOR... UD PRN IV 08/15/16 00:15 09/14/16 00:14 Glucagon (Glucagon Inj) 1 mg UD PRN SQ 08/15/16 00:15 09/14/16 00:14 Miscellaneous Information (Consult Glycemic Management Pharmacy) 1 ea DAILY PRN N/A 08/15/16 02:18 09/14/16 02:17 Acetazolamide (Diamox Tab) 250 mg BID PO 08/15/16 09:00 09/14/16 08:59 08/30/16 08:37 250 MG Calcium Acetate (Phoslo Cap) 667 mg AC PO 08/15/16 08:00 09/14/16 07:59 08/30/16 08:31 667 MG Fish Oil ([place]-3 (Purified Fish Oil) Cap) 1 gm DAILY PO 08/15/16 09:00 09/14/16 08:59 08/30/16 08:38 1 GM Folic Acid (Folvite Tab) 1 mg DAILY PO 08/15/16 09:00 09/14/16 08:59 08/30/16 08:36 1 MG Multivitamins (Multivitamin Tab) 1 tab DAILY PO 08/15/16 09:00 09/14/16 08:59 08/30/16 08:37 1 TAB Ranolazine (Ranexa ER Tab) 500 mg BID PO 08/15/16 09:00 09/14/16 08:59 08/30/16 08:39 500 MG Cholecalciferol (Vitamin D Tab) 1,000 inter.unit QAM PO 08/15/16 09:00 09/14/16 08:59 08/30/16 08:39 1,000 INTER.UNIT Citalopram Hydrobromide (celeXA TAB) 20 mg QAM PO 08/15/16 09:00 09/14/16 08:59 08/30/16 08:37 20 MG Pantoprazole Sodium (Protonix Tab) 40 mg QAM PO 08/15/16 09:00 09/14/16 08:59 08/30/16 08:35 40 MG Tramadol HCl (Ultram Tab) 50 mg Q6H PRN PO 08/15/16 15:45 09/14/16 15:44 Insulin Glargine (Lantus Solostar Pen) SEE PROTOCOL DAILY SC 08/18/16 09:00 09/17/16 08:59 Future hold 08/29/16 09:03 15 UNIT Furosemide (Lasix Tab) 80 mg QAM PO 08/23/16 09:00 09/22/16 08:59 08/30/16 08:36 80 MG Carvedilol (Coreg Tab) 12.5 mg DAILY@0900 PO 08/23/16 09:00 09/22/16 08:59 08/30/16 08:37 12.5 MG Carvedilol 6.25 mg 6.25 mg DAILY@2100 PO 08/22/16 21:00 09/21/16 20:59 08/29/16 20:56 6.25 MG Ceftriaxone Sodium/Dextrose (Rocephin Inj/D5 50ml) 70 ml @ 100 mls/hr DAILY@1400 IV 08/23/16 14:00 10/04/16 13:59 08/29/16 13:41 100 MLS/HR Rifampin (Rifadin Cap) 300 mg BID PO 08/23/16 21:00 10/04/16 20:59 08/30/16 08:39 300 MG Miscellaneous Information 1 ea UD PRN N/A 08/23/16 16:15 09/22/16 16:14 Amoxicillin (Amoxil Cap) 250 mg BID PO 08/24/16 21:00 10/04/16 15:59 08/30/16 08:38 250 MG Miconazole Nitrate (Desenex Powder) 1 appln UD PRN EXT 08/24/16 18:45 09/23/16 18:44 Enteral Nutritional Formula (Boost Glucose Control) 1 can BIDM PO 08/26/16 17:45 09/25/16 17:44 08/30/16 08:31 1 CAN Insulin Aspart (novoLOG ASPART) SLIDING SCALE If C... ACHS SC 08/26/16 21:45 09/25/16 21:44 08/29/16 20:59 1 UNITS Heparin Sodium (Porcine) (Heparin 100 Unit/ml 5ml Flush) 5 ml PRN PRN IV 08/27/16 14:15 09/26/16 14:14 08/30/16 05:59 5 ML Warfarin Sodium 2.5 mg 2.5 mg DAILY@16 PO 08/28/16 16:00 09/27/16 15:59 08/29/16 16:47 2.5 MG Iron Sucrose/ Sodium Chloride (Venofer Inj/Nss 250ml) 265 ml @ 176.667 mls/hr DAILY@1100 IV 08/29/16 11:00 08/31/16 15:00 08/29/16 10:34 176.667 MLS/HR Potassium Chloride (Klor-Con Tab) 40 meq TID PO 08/30/16 09:00 09/29/16 08:59 08/30/16 09:01 40 MEQ Last 24 Hours Test 08/29/16 12:03 08/29/16 12:42 08/29/16 16:52 08/29/16 20:24 Bedside Glucose 149 mg/dl 138 mg/dl 141 mg/dl White Blood Count 13.13 K/uL Red Blood Count 3.05 M/uL Hemoglobin 9.6 g/dL Hematocrit 30.2 % Mean Corpuscular Volume 99.0 fL Mean Corpuscular Hemoglobin 31.5 pg Mean Corpuscular Hemoglobin Concent 31.8 g/dl Platelet Count 264 K/uL Mean Platelet Volume 8.8 fL Neutrophils (%) (Auto) 75.1 % Lymphocytes (%) (Auto) 15.1 % Monocytes (%) (Auto) 6.2 % Eosinophils (%) (Auto) 2.8 % Basophils (%) (Auto) 0.3 % Neutrophils # (Auto) 9.85 K/uL Lymphocytes # (Auto) 1.98 K/uL Monocytes # (Auto) 0.82 K/uL Eosinophils # (Auto) 0.37 K/uL Basophils # (Auto) 0.04 K/uL RDW Standard Deviation 60.6 fL RDW Coefficient of Variation 16.7 % Immature Granulocyte % (Auto) 0.5 % Immature Granulocyte # (Auto) 0.07 K/uL Test 08/30/16 05:45 08/30/16 06:29 08/30/16 08:23 White Blood Count 11.05 K/uL Red Blood Count 3.00 M/uL Hemoglobin 9.2 g/dL Hematocrit 30.0 % Mean Corpuscular Volume 100.0 fL Mean Corpuscular Hemoglobin 30.7 pg Mean Corpuscular Hemoglobin Concent 30.7 g/dl RDW Standard Deviation 61.2 fL RDW Coefficient of Variation 16.8 % Platelet Count 295 K/uL Mean Platelet Volume 9.3 fL Prothrombin Time 18.4 SECONDS Prothromb Time International Ratio 1.7 Sodium Level 141 mmol/L Potassium Level 3.1 mmol/L Chloride Level 102 mmol/L Carbon Dioxide Level 27 mmol/L Anion Gap 12.0 mmol/L Blood Urea Nitrogen 41 mg/dl Creatinine 5.60 mg/dl Est Creatinine Clear Calc Drug Dose 12.1 ml/min Estimated GFR () 10.5 Estimated GFR (Non- 9.1 BUN/Creatinine Ratio 7.4 Random Glucose 181 mg/dl Calcium Level 8.4 mg/dl Bedside Glucose 192 mg/dl Assessment & Plan 76 y/o M w/ ESRD on PD, severe PAD, cardiac disease including EF 40% - bioprosthetic MVR - CAD, chronic wounds, DM admitted with R calcaneal osteomyelitis and distal R Achilles tendon rupture >> found to have possible MV vegetation. On ceftriaxone rifampin and amoxicillin and pt likely to need >4 wks IV abtx. has infusaport ESRD -PD tonight for light/moderate UF 12hrs 5 exchanges; no LBF -continue outpt lasix, binders, D analogues, renal vitamin -clarify indication for acetazolamide > often ocular; pt can give few details Hypokalemia -got 20 mEq already today; had >80 mEq yesterday and K still low > mEq tid po for now standing and daily bmp Anemia of ESRD -no tranfusion indicated -hgb daily pls -has low iron stores; on course of venofer -cont aggressive epo dosing to be managed by renal and dosed once iron stores established Osteomyelitis R calcaneus and R Achilles tendon frx -per hospital and multiple consulting services Appreciate consult; will follow with you.
[2016-08-30] MEDS: INSULIN GLARGINE SOLOSTAR 100 UNITS/ML 3 ML PEN SC SCH (09:14)
[2016-08-30] MEDS: INSULIN ASPART 100 UNITS/ML 3 ML PEN SC SCH ×4 (09:19→21:00)
[2016-08-30] MEDS: IRON SUCROSE INJ 300 MG in SODIUM CHLORIDE 0.9% 250ML IV SCH (10:45)
[2016-08-30] MEDS: CEFTRIAXONE SOD INJ 2,000 MG in DEXTROSE 5% 50ML 50 ML IV SCH (13:47)
[2016-08-30] MEDS: WARFARIN SOD 2.5 MG TAB PO SCH (15:49)
--- NOTE | 2016-08-30 18:03 | Progress Note ---
Internal Med Progress Note Date of Service: Aug 30, 2016. Provider Documentation: SUBJECTIVE: denies any pain somewhat hard to hear afebrile eating ok had diarrhea today waiting for rehab OBJECTIVE: Vital Signs-as noted below Exam: General-alert and awake. Not in distress ENT-hard of hearing Neck-no neck masses Lungs-cta b/l no wheezing no crackles Heart-s1 and s2 heard, regular rate and rhythm no murmurs Abdomen-soft bowel sounds present non tender no distension Extremities-no edema no erythema Neuro-alert and awake moves extremities Lab data as noted below. ASSESSMENT & PLAN: Calcaneus Osteomyelitis/NON HEALING RT HEEL ULCER s/p Debridement 08/19/16 blood cultures :negative wound culture: Staph aureus , MSSS/Corynebacterium /Enterococcus bone culture: Staph, Strep echo: possible vegetation on mitral valve leaflet Plan for 6 weeks antibiotics unable to place PICC line today/resistance noted after 30 cm , unable to remove line as got trapped at last 5 cm ext Vascular surgery consulted for assistance and PICC line removed A port placed by Dr Mendoza ID consulted and recommends: IV ceftriaxone 2 g daily and p.o. amoxicillin 500 mg t.i.d./Rifampin 300 mg PO BID -for additional coverage of staph with likely vegetation. patient will require 6 weeks of antibiotic therapy. will need ID eval in 4-6 weeks prior to completion of IV abx Oral abx should be continued beyond IV Rocephin treatment and end date will be adjusted after ID follow up in office ortho following ; appreciate input Pt will possibly need a delayed repair of the Achilles Tendon if the infection can be cleared and soft tissue coverage is possible. Mitral valve vegetation : Possible mitral valve vegetation on the mitral valve seen in transthoracic ECHO prior hx of Aortic and Mitral valve replacement (Bioprosthetic) blood cultures drawn after antibiotics started consulted [employer] Director: poor surgical candidate for Mitral valve replacement recommends completing 6 weeks of antibiotics conservative approach ESRD on peritoneal dialysis Nephrology following On Peritoneal dialysis LOW K: replaced by Nephrology follow lytes Bradycardia: Digoxin discontinued reduced PM dose of Coreg 6.25 mg /cont AM dose of Coreg 12.5 mg daily Will monitor. CAD s/p CABG Holding Lisinopril for marginal BP On Ranexa On Aspirin Atrial fibrillation in sinus rhythm, HR controlled Coreg dose adjusted and Digoxin-D/ed for bradycardia On Coumadin Will monitor INR Chronic systolic heart failure EF 35% -40 % on Lasix 80mg daily Will monitor volume status Anemia-likely multifactorial but 2/2 mainly to ESRD on Procrit. - given 2 units PRBC Hg stable at ~9 monitor Severe PAD s/p recent vascular intervention last week s/p 3 stents placed. on Aspirin DM II On ISS/Lantus, glycemic pharmacy consult placed DVT prop on Coumadin FULL CODE DISPOSITION : Plan for rehab/snf soon social service for d/c planning Vital Signs: Date Time Temp Pulse Resp B/P Pulse Ox O2 Delivery O2 Flow Rate FiO2 08/30/16 15:45 Room Air 08/30/16 15:20 36.6 95 18 145/77 96 Room Air 08/30/16 12:23 36.5 98 122/71 100 Room Air 08/30/16 10:57 36.4 99 116/64 100 Room Air 08/30/16 09:08 96 102/66 08/30/16 07:20 Room Air 08/30/16 06:50 36.7 96 22 121/71 99 Room Air 08/30/16 00:55 Room Air 08/29/16 23:30 36.7 96 18 127/73 99 Room Air 08/29/16 20:52 94 126/70 08/29/16 19:30 Room Air Lab Results: Results Past 24 Hours Test 08/29/16 20:24 08/30/16 05:45 08/30/16 06:29 08/30/16 08:23 Range/Units Bedside Glucose 141 192 70-99 mg/dl White Blood Count 11.05 4.8-10.8 K/uL Red Blood Count 3.00 4.7-6.1 M/uL Hemoglobin 9.2 14.0-18.0 g/dL Hematocrit 30.0 42-52 % Mean Corpuscular Volume 100.0 80-100 fL Mean Corpuscular Hemoglobin 30.7 25-34 pg Mean Corpuscular Hemoglobin Concent 30.7 32-36 g/dl RDW Standard Deviation 61.2 36.4-46.3 fL RDW Coefficient of Variation 16.8 11.5-14.5 % Platelet Count 295 130-400 K/uL Mean Platelet Volume 9.3 7.4-10.4 fL Prothrombin Time 18.4 9.0-12.0 SECONDS Prothromb Time International Ratio 1.7 0.9-1.1 Sodium Level 141 136-145 mmol/L Potassium Level 3.1 3.5-5.1 mmol/L Chloride Level 102 98-107 mmol/L Carbon Dioxide Level 27 21-32 mmol/L Anion Gap 12.0 3-11 mmol/L Blood Urea Nitrogen 41 7-18 mg/dl Creatinine 5.60 0.60-1.40 mg/dl Est Creatinine Clear Calc Drug Dose 12.1 ml/min Estimated GFR () 10.5 Estimated GFR (Non- 9.1 BUN/Creatinine Ratio 7.4 10-20 Random Glucose 181 70-99 mg/dl Calcium Level 8.4 8.5-10.1 mg/dl Test 08/30/16 10:20 08/30/16 11:31 Range/Units Bedside Glucose 185 170 70-99 mg/dl
[2016-08-30] MEDS: CARVEDILOL 6.25 MG TAB PO SCH (21:14)
[2016-08-31] VITALS (7 sets, daily range): BP systolic 106–149; BP diastolic 67–75; PULSE 102–108; TEMP 36.5–36.7; O2SAT 99
[2016-08-31 06:30] LABS: BUN/CREATININE RATIO 7.1 (10-20); CALCIUM 8.3 mg/dl (8.5-10.1); CREATININE 5.5 mg/dl (0.60-1.40); POTASSIUM 3.9 mmol/L (3.5-5.1)
[2016-08-31] MEDS: CALCIUM ACETATE 667MG GELCAP PO SCH ×2 (07:34→12:07)
[2016-08-31] MEDS: BOOST GLUCOSE CONTROL PO SCH (07:37)
[2016-08-31] MEDS: INSULIN ASPART 100 UNITS/ML 3 ML PEN SC SCH ×2 (08:08→12:53)
[2016-08-31] MEDS: INSULIN GLARGINE SOLOSTAR 100 UNITS/ML 3 ML PEN SC SCH (08:10)
[2016-08-31] MEDS: OMEGA-3 (PURIFIED FISH OIL) 1 GM CAP PO SCH (08:15)
[2016-08-31] MEDS: AMOXICILLIN 250 MG CAP PO SCH (08:16)
[2016-08-31] MEDS: PANTOprazole SOD 40 MG TAB PO SCH (08:16)
[2016-08-31] MEDS: CITALOPRAM 20 MG TAB PO SCH (08:17)
[2016-08-31] MEDS: RIFAMPIN 300 MG CAP PO SCH (08:17)
[2016-08-31] MEDS: AcetaZOLAMIDE 250 MG TAB PO SCH (08:17)
[2016-08-31] MEDS: RANOLAZINE 500 MG ER TAB PO SCH (08:17)
[2016-08-31] MEDS: MULTIVITAMIN TAB PO SCH (08:18)
[2016-08-31] MEDS: CHOLECALCIFEROL 1000 INTER.UNIT TAB PO SCH (08:18)
[2016-08-31] MEDS: FUROSEMIDE 80 MG TAB PO SCH (08:18)
[2016-08-31] MEDS: POTASSIUM CHLORIDE 20 MEQ TABCR PO SCH (08:19)
[2016-08-31] MEDS: CARVEDILOL 12.5 MG TAB PO SCH (08:19)
--- NOTE | 2016-08-31 09:09 | Dialysis Progress Note ---
Nephrology Dialysis Note Date of Service: Aug 31, 2016. Subjective seen on PD during 4th dwell; no c/o weakness or dyspnea; moving bowels daily including this am; denies abd pain. appetite ok for now; needs help w/ pills/ po but tolerating even k; waiting for [facility] bed Objective Date Time Temp Pulse Resp B/P Pulse Ox O2 Delivery O2 Flow Rate FiO2 08/31/16 08:31 36.7 102 20 120/68 99 Room Air 08/31/16 08:25 102 120/69 08/31/16 07:51 36.7 102 19 112/67 99 Room Air 08/31/16 01:00 Room Air 08/30/16 22:45 36.8 98 18 123/66 98 Room Air 08/30/16 20:30 36.5 95 145/77 08/30/16 15:45 Room Air 08/30/16 15:20 36.6 95 18 145/77 96 Room Air 08/30/16 12:23 36.5 98 122/71 100 Room Air 08/30/16 11:30 36.3 92 18 149/75 92 08/30/16 10:57 36.4 99 116/64 100 Room Air Physical Exam: General-interactive, alert, oriented to self, place; on RA, nad Eyes-no scleral icterus ENT-mmm, edentulous Neck-supple Lungs-diminished; clear Heart- systolic murmur, RRR Abdomen-pd catheter in place, soft, nontender, +BS Extremities-right heel ulcer not evaluated; wrappings mostly off today except minimal bandaging; no edema Neuro-simpson, fluent speech but perseverant Current Inpatient Medications Medications (Trade) Dose Ordered Sig/Andrei Route Start Time Stop Time Status Last Admin Dose Admin Acetaminophen (Tylenol Tab) 650 mg Q4H PRN PO 08/15/16 00:15 09/14/16 00:14 Polyethylene (Miralax Powder Packet) 17 gm DAILY PRN PO 08/15/16 00:15 09/14/16 00:14 08/18/16 09:03 17 GM Ondansetron HCl (Zofran Inj) 4 mg Q6H PRN IV 08/15/16 00:15 09/14/16 00:14 08/30/16 13:48 4 MG Glucose (Glucose 40% Gel) 15-30 GRAMS 15 GRAMS... UD PRN PO 08/15/16 00:15 09/14/16 00:14 Glucose (Glucose Chew Tab) 4-8 Tablets 4 Tabl... UD PRN PO 08/15/16 00:15 09/14/16 00:14 Dextrose (Dextrose 50% 50ML Syringe) 25-50ML OF 50% DW IV FOR... UD PRN IV 08/15/16 00:15 09/14/16 00:14 Glucagon (Glucagon Inj) 1 mg UD PRN SQ 08/15/16 00:15 09/14/16 00:14 Miscellaneous Information (Consult Glycemic Management Pharmacy) 1 ea DAILY PRN N/A 08/15/16 02:18 09/14/16 02:17 Acetazolamide (Diamox Tab) 250 mg BID PO 08/15/16 09:00 09/14/16 08:59 08/31/16 08:17 250 MG Calcium Acetate (Phoslo Cap) 667 mg AC PO 08/15/16 08:00 09/14/16 07:59 08/31/16 07:34 667 MG Fish Oil (Winger-3 (Purified Fish Oil) Cap) 1 gm DAILY PO 08/15/16 09:00 09/14/16 08:59 08/31/16 08:15 1 GM Folic Acid (Folvite Tab) 1 mg DAILY PO 08/15/16 09:00 09/14/16 08:59 08/31/16 08:16 1 MG Multivitamins (Multivitamin Tab) 1 tab DAILY PO 08/15/16 09:00 09/14/16 08:59 08/31/16 08:18 1 TAB Ranolazine (Ranexa ER Tab) 500 mg BID PO 08/15/16 09:00 09/14/16 08:59 08/31/16 08:17 500 MG Cholecalciferol (Vitamin D Tab) 1,000 inter.unit QAM PO 08/15/16 09:00 09/14/16 08:59 08/31/16 08:18 1,000 INTER.UNIT Citalopram Hydrobromide (celeXA TAB) 20 mg QAM PO 08/15/16 09:00 09/14/16 08:59 08/31/16 08:17 20 MG Pantoprazole Sodium (Protonix Tab) 40 mg QAM PO 08/15/16 09:00 09/14/16 08:59 08/31/16 08:16 40 MG Tramadol HCl (Ultram Tab) 50 mg Q6H PRN PO 08/15/16 15:45 09/14/16 15:44 Insulin Glargine (Lantus Solostar Pen) SEE PROTOCOL DAILY SC 08/18/16 09:00 09/17/16 08:59 Future hold 08/31/16 08:10 15 UNIT Furosemide (Lasix Tab) 80 mg QAM PO 08/23/16 09:00 09/22/16 08:59 08/31/16 08:18 80 MG Carvedilol (Coreg Tab) 12.5 mg DAILY@0900 PO 08/23/16 09:00 09/22/16 08:59 08/31/16 08:19 12.5 MG Carvedilol 6.25 mg 6.25 mg DAILY@2100 PO 08/22/16 21:00 09/21/16 20:59 08/30/16 21:14 6.25 MG Ceftriaxone Sodium/Dextrose (Rocephin Inj/D5 50ml) 70 ml @ 100 mls/hr DAILY@1400 IV 08/23/16 14:00 10/04/16 13:59 08/30/16 13:47 100 MLS/HR Rifampin (Rifadin Cap) 300 mg BID PO 08/23/16 21:00 10/04/16 20:59 08/31/16 08:17 300 MG Miscellaneous Information 1 ea UD PRN N/A 08/23/16 16:15 09/22/16 16:14 Amoxicillin (Amoxil Cap) 250 mg BID PO 08/24/16 21:00 10/04/16 15:59 08/31/16 08:16 250 MG Miconazole Nitrate (Desenex Powder) 1 appln UD PRN EXT 08/24/16 18:45 09/23/16 18:44 Enteral Nutritional Formula (Boost Glucose Control) 1 can BIDM PO 08/26/16 17:45 09/25/16 17:44 08/31/16 07:37 1 CAN Insulin Aspart (novoLOG ASPART) SLIDING SCALE If C... ACHS SC 08/26/16 21:45 09/25/16 21:44 08/31/16 08:08 7 UNITS Heparin Sodium (Porcine) (Heparin 100 Unit/ml 5ml Flush) 5 ml PRN PRN IV 08/27/16 14:15 09/26/16 14:14 08/31/16 06:37 5 ML Warfarin Sodium 2.5 mg 2.5 mg DAILY@16 PO 08/28/16 16:00 09/27/16 15:59 08/30/16 15:49 2.5 MG Iron Sucrose/ Sodium Chloride (Venofer Inj/Nss 250ml) 265 ml @ 176.667 mls/hr DAILY@1100 IV 08/29/16 11:00 08/31/16 15:00 08/30/16 10:45 176.667 MLS/HR Potassium Chloride (Klor-Con Tab) 40 meq TID PO 08/30/16 09:00 09/29/16 08:59 08/31/16 08:19 40 MEQ Last 24 Hours Test 08/30/16 10:20 08/30/16 11:31 08/30/16 21:10 08/31/16 05:20 Bedside Glucose 185 mg/dl 170 mg/dl 74 mg/dl Sodium Level 141 mmol/L Potassium Level 3.9 mmol/L Chloride Level 103 mmol/L Carbon Dioxide Level 27 mmol/L Anion Gap 11.0 mmol/L Blood Urea Nitrogen 39 mg/dl Creatinine 5.50 mg/dl Est Creatinine Clear Calc Drug Dose 12.3 ml/min Estimated GFR () 10.7 Estimated GFR (Non- 9.3 BUN/Creatinine Ratio 7.1 Random Glucose 178 mg/dl Calcium Level 8.3 mg/dl Test 08/31/16 07:30 Bedside Glucose 165 mg/dl Assessment & Plan 76 y/o M w/ ESRD on PD, severe PAD, cardiac disease including EF 40% - bioprosthetic MVR - CAD, chronic wounds, DM admitted with R calcaneal osteomyelitis and distal R Achilles tendon rupture >> found to have possible MV vegetation. On ceftriaxone rifampin and amoxicillin and pt likely to need >4 wks IV abtx. has infusaport ESRD -PD tonight for light/moderate UF 12hrs 5 exchanges; no LBF -continue outpt lasix, binders, D analogues, renal vitamin -clarify indication for acetazolamide > often ocular; pt can give few details Hypokalemia -better; cont 40 mEq tid po for now standing and daily bmp Anemia of ESRD -no tranfusion indicated -hgb daily pls -has low iron stores; on course of venofer -cont aggressive epo dosing to be managed by renal and dosed once iron stores established Osteomyelitis R calcaneus and R Achilles tendon frx -per hospital and multiple consulting services Appreciate consult; will follow with you.
[2016-08-31] MEDS: IRON SUCROSE INJ 300 MG in SODIUM CHLORIDE 0.9% 250ML IV SCH (10:48)
[2016-08-31] MEDS ORDERED: POTA-74 PO (11:32)
[2016-08-31] MEDS ORDERED: AMX250 PO (11:33)
[2016-08-31] MEDS ORDERED: CEFT1INJ57 IV (11:33)
[2016-08-31] MEDS ORDERED: ULT50X PO (11:33)
[2016-08-31] MEDS ORDERED: RFM300 PO (11:33)
--- NOTE | 2016-08-31 12:43 | Progress Note ---
Internal Med Progress Note Date of Service: Aug 31, 2016. Provider Documentation: SUBJECTIVE: sitting on the chair comfortably denies any pain no sob no nausea eating ok son in he room walked few steps today plan for rehab today OBJECTIVE: Vital Signs-as noted below Exam: General-alert and awake. Not in distress ENT-hard of hearing Neck-no neck masses Lungs-cta b/l no wheezing no crackles Heart-s1 and s2 heard, regular rate and rhythm no murmurs Abdomen-soft bowel sounds present non tender no distension Extremities-no edema no erythema dressing of right foot Neuro-alert and awake moves extremities Lab data as noted below. ASSESSMENT & PLAN: Calcaneus Osteomyelitis/NON HEALING RT HEEL ULCER s/p Debridement 08/19/16 blood cultures :negative wound culture: Staph aureus , MSSS/Corynebacterium /Enterococcus bone culture: Staph, Strep echo: possible vegetation on mitral valve leaflet Plan for 6 weeks antibiotics unable to place PICC line today/resistance noted after 30 cm , unable to remove line as got trapped at last 5 cm ext Vascular surgery consulted for assistance and PICC line removed A port placed by Dr Mendoza ID consulted and recommends: IV ceftriaxone 2 g daily and p.o. amoxicillin 500 mg t.i.d./Rifampin 300 mg PO BID -for additional coverage of staph with likely vegetation. patient will require 6 weeks of antibiotic therapy. will need ID eval in 4-6 weeks prior to completion of IV abx Oral abx should be continued beyond IV Rocephin treatment and end date will be adjusted after ID follow up in office ortho following ; appreciate input Pt will possibly need a delayed repair of the Achilles Tendon if the infection can be cleared and soft tissue coverage is possible. followup with Orthopedics and ID in 4-6 weeks Mitral valve vegetation : Possible mitral valve vegetation on the mitral valve seen in transthoracic ECHO prior hx of Aortic and Mitral valve replacement (Bioprosthetic) blood cultures drawn after antibiotics started consulted [employer]: poor surgical candidate for Mitral valve replacement recommends completing 6 weeks of antibiotics conservative approach ESRD on peritoneal dialysis Nephrology following On Peritoneal dialysis LOW K: replaced by Nephrology follow lytes discharged on potassium supplements close follow up of labs with pcp and nephrology Bradycardia: Digoxin discontinued reduced PM dose of Coreg 6.25 mg /cont AM dose of Coreg 12.5 mg daily some what tachycardic now discharged on previous dose of coreg 12.5mg bid stopped digoxin followup with pcp CAD s/p CABG Holding Lisinopril for marginal BP On Ranexa On Aspirin Atrial fibrillation in sinus rhythm, HR controlled Digoxin-D/ed for bradycardia On Coumadin Will monitor INR Chronic systolic heart failure EF 35% -40 % on Lasix 80mg daily on peritoneal dialysis Will monitor volume status Anemia-likely multifactorial but 2/2 mainly to ESRD on Procrit. - given 2 units PRBC Hg stable at ~9 monitor Severe PAD s/p recent vascular intervention last week s/p 3 stents placed. on Aspirin DM II On ISS/Lantus, glycemic pharmacy consult placed Discharged to [facility] Vital Signs: Date Time Temp Pulse Resp B/P Pulse Ox O2 Delivery O2 Flow Rate FiO2 08/31/16 10:57 36.5 108 106/67 99 Room Air 08/31/16 10:24 99 Room Air 08/31/16 09:30 36.7 102 20 149/75 08/31/16 08:31 36.7 102 20 120/68 99 Room Air 08/31/16 08:25 102 120/69 08/31/16 07:51 36.7 102 19 112/67 99 Room Air 08/31/16 07:16 Room Air 08/31/16 01:00 Room Air 08/30/16 22:45 36.8 98 18 123/66 98 Room Air 08/30/16 20:30 36.5 95 145/77 08/30/16 15:45 Room Air 08/30/16 15:20 36.6 95 18 145/77 96 Room Air Lab Results: Results Past 24 Hours Test 08/30/16 21:10 08/31/16 05:20 08/31/16 07:30 08/31/16 11:37 Range/Units Bedside Glucose 74 165 161 70-99 mg/dl Sodium Level 141 136-145 mmol/L Potassium Level 3.9 3.5-5.1 mmol/L Chloride Level 103 98-107 mmol/L Carbon Dioxide Level 27 21-32 mmol/L Anion Gap 11.0 3-11 mmol/L Blood Urea Nitrogen 39 7-18 mg/dl Creatinine 5.50 0.60-1.40 mg/dl Est Creatinine Clear Calc Drug Dose 12.3 ml/min Estimated GFR () 10.7 Estimated GFR (Non- 9.3 BUN/Creatinine Ratio 7.1 10-20 Random Glucose 178 70-99 mg/dl Calcium Level 8.3 8.5-10.1 mg/dl
--- NOTE | 2016-08-31 12:48 | Discharge Summary ---
Discharge Summary Date of Service Aug 31, 2016. Discharge Summary Admission Date: Aug 15, 2016 at 00:10 Discharge Date: Aug 31, 2016 Discharge Disposition: Rehab Principal Diagnosis: Calcaneus Osteomyelitis/NON HEALING RT HEEL ULCER s/p Debridement 08/19/16 Mitral valve vegetation? hypokalemia bradycardia anemia Secondary Diagnoses/Problems: 1) Afib Status: Chronic (2) Aortic stenosis Status: Chronic (3) CAD (coronary artery disease) Status: Chronic (4) CHF (congestive heart failure) Permanent Comment: EF 40% on echo 03/2014 Status: Chronic (5) Depression Status: Chronic (6) Dialysis patient Status: Chronic (7) DM2 (diabetes mellitus, type 2) Status: Chronic (8) ESRD (end stage renal disease) Status: Chronic (9) HLD (hyperlipidemia) Status: Chronic (10) HTN (hypertension) Status: Chronic (11) PAD (peripheral artery disease) Status: Chronic (12) Prostate CA Status: Chronic (13) 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 No acute fracture of the right tibia or fibula. 2. Soft tissue calcification which projects over the distal Achilles. This is age indeterminate although probably old. RIGHT LOWER EXTREMITY DOPPLER: No evidence of deep venous thrombus within the right lower extremity. MRI OF RIGHT ANKLE: 1. Rupture of the distal Achilles tendon at its insertion with 3 cm of tendon retraction. 2. Wound overlying the posterior calcaneus with abnormal marrow signal within the posterior calcaneus and associated bone loss. The osseous findings raise the possibility of osteomyelitis which may have predisposed to Achilles rupture. A posttraumatic etiology could appear similar although is considered somewhat less likely. Clinical correlation for evidence of osteomyelitis is recommended. RIGHT FOOT X RAY: Several ossific/calcific densities superior to the posterior calcaneus with apparent relative lucency of this portion of the calcaneus, new findings since exam of May 26, 2016. While nonspecific, the findings could reflect an infectious process such as osteomyelitis CHEST XRAY: 1. Cardiomegaly without radiographic evidence of congestive failure. 2. There is left basilar consolidation and a small left pleural effusion. Correlate clinically for evidence of pneumonia. Radiographic follow-up to resolution is recommended. ECHO: * There is a bioprosthetic mitral valve. * Bioprosthesis leaflets are thickened but move well. * Prevoiusly noted mobile density on the mitral valve prosthesis is less apparent on the current study, coannot exclude small vegetation * The prosthetic mitral valve is well-seated. * There is trace mitral regurgitation. * There is a bioprosthetic aortic valve. * The prosthetic aortic valve appears to open well. There is no aortic valvular vegetation Consultations: NEPHROLOGY ORTHOPEDICS CARDIOLOGY ID Pending Studies/Follow-Up: LAB: PT/INR BMP Medication Reconciliation New Medications: Ceftriaxone Sod (Rocephin) 1 Gm Inj 1 GM IV DAILY for 35 Days, VIAL CONTINUE TOTAL 6 WEEKS OF THERAPY LAST DAY OF THERAPY 09/27/16 Potassium Chloride (Potassium Chloride Er) 10 Meq Tab 2 TAB PO TID for 30 Days, #180 TAB 1 Refill Amoxicillin (Amoxicillin) 250 Mg Cap 250 MG PO BID for 60 Days, #120 CAP continue Amoxicillin till evaluated by Infectious disease Rifampin (Rifampin) 300 Mg Cap 300 MG PO BID for 60 Days, #120 CAP CONTINUE RIFAMPIN TILL EVALUATED BY INFECTIOUS DISEASE Tramadol HCl (Tramadol HCl) 50 Mg Tab 50 MG PO Q6H PRN for Pain, #30 TAB Continued Medications: Acetazolamide (Acetazolamide) 250 Mg Tab 250 MG PO BID Aspirin (Aspirin EC Low Dose) 81 Mg Ectab 81 MG PO DAILY Calcium Acetate (Phoslo 667 Mg) 667 Mg Cap 1 CAP PO WM, CAP Carvedilol (Coreg) 12.5 Mg Tab 12.5 MG PO BID, TAB Cholecalciferol (D3-1000) 1,000 Unit Cap 1000 UNITS PO DAILY Citalopram Hydrobromide (Citalopram Hydrobromide) 10 Mg Tab 2 TAB PO DAILY for 90 Days Fish Oil ([place]-3) 1 Ea Cap 1 CAP PO DAILY, CAP Folic Acid (Folvite) 1 Mg Tab 1 MG PO DAILY, TAB Furosemide (Lasix) 40 Mg Tab 80 MG PO DAILY, TAB Insulin Glargine (Lantus Solostar) 100 Unit/Ml Inj 10 UNITS SC QAM, #1 PEN Insulin Lispro (Human) (Humalog) 100 Unit/Ml Inj 0 SC ACHS, #1 insulin sliding scale gaol 110-140mg/dl correction factor: 1 unit insulin for every 40mg/dl above 140mg/dl blood glucose levels Lisinopril (Lisinopril) 2.5 Mg Tab 2.5 MG PO HS, TAB Meclizine Hcl (Meclizine Hcl) 25 Mg Tab 1 TAB PO TID PRN for Dizziness or Vertigo for 30 Days, #90 TAB Melatonin-Pyridoxine (Melatonin) 1 Tab Tab 1 TAB PO DAILY Multiple Vitamin (Multivitamin) 1 Tab Tab 1 TAB PO DAILY, TAB Nitroglycerin (Nitrostat) 0.4 Mg/1 Tab Subl 0.4 MG SL UD PRN for Chest Pain Omeprazole (Prilosec) 20 Mg Capcr 20 MG PO DAILY Oyster Shell (Calcium) 500 Mg Tab 500 MG PO DAILY Prochlorperazine Maleate (Compazine) 10 Mg Tab 1 TAB PO Q6 PRN for Nausea for 7 Days, #30 TAB 3 Refills Ranolazine (Ranexa) 500 Mg Tab 1 TAB PO BID for 30 Days, #60 TAB 3 Refills Warfarin Sodium (Coumadin) 3 Mg Tab 3 MG PO DAILY, TAB Zinc Gluconate (Zinc) 50 Mg Tab 50 MG PO BID Discontinued Medications: Digoxin (Lanoxin) 0.125 Mg Tab 0.125 MG PO 3XWK, TAB TAKES ON MON, WED, FRI. Admission Information HPI (per Admitting provider): 76 yo diabetic male with a chronic heel wound on his R leg presents with R leg pain after a R Achilles heel rupture earlier today. This occurred when he went to stand up out of his recliner and made a turn to walk but his R foot stayed in place. He was unable to walk as a result. The patient recently underwent a vascular procedure on the R leg just one week ago for severe PAD and had 3 stents placed. He also has a chronic heel wound for which he is followed at the wound clinic regularly and states that his wound has been debrided two days ago with subsequent bleeding more than usual. He has diabetes, renal disease on peritoneal dialysis at home, aortic stenosis and heart disease along with multiple other chronic medical problems. He denies any fevers, chills, chest pain, shortness of breath, pain in his leg at rest, nausea, vomiting or diarrhea. He reports a dry cough for the past month. In the ER, an MRI was performed revealing evidence of osteomyelitis of the right foot. This has been a problem in the past for him and he has multiple toe amputations present on exam. Physical Exam (per Admitting): GEN: WNWD, in no acute distress, alert and appropriate HEENT: NC/AT, PERRL, normal sclerae, mucous membranes are dry, poor dentition CARDIO: reg rate, S1/2 heard, 3/6 JACEK heard at LSB LUNGS: CTA bilaterally, no crackles, rales or wheezes, good diaphragmatic excursion ABD: soft, non-tender, non-distended, no rebound or guarding, +BS EXTREMITY: RP and DP palpable 2+ bilat, no LE swelling or edema, extremities are warm and well-perfused L foot: middle toe in bandaged with dressing C/D/I R foot: R heel wound with granulation tissue and dark tissue that appears to be eschar-some drainage that is foul smelling, no surrounding cellulitis NEURO: CN 2-12 grossly intact, sensation intact grossly throughout MUSC: 5/5 strength in UEs, limited exam in LEs 2/2 pain with movement. SKIN: warm and dry and wounds as above. 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 amoxicillin 500 mg t.i.d./Rifampin 300 mg PO BID -for additional coverage of staph with likely vegetation. patient will require 6 weeks of antibiotic therapy. will need ID eval in 4-6 weeks prior to completion of IV abx Oral abx should be continued beyond IV Rocephin treatment and end date will be adjusted after ID follow up in office ortho following ; appreciate input Pt will possibly need a delayed repair of the Achilles Tendon if the infection can be cleared and soft tissue coverage is possible. followup with Orthopedics and ID in 4-6 weeks Mitral valve vegetation : Possible mitral valve vegetation on the mitral valve seen in transthoracic ECHO prior hx of Aortic and Mitral valve replacement (Bioprosthetic) blood cultures drawn after antibiotics started consulted Hooker Inspector: poor surgical candidate for Mitral valve replacement recommends completing 6 weeks of antibiotics conservative approach ESRD on peritoneal dialysis Nephrology following On Peritoneal dialysis LOW K: replaced by Nephrology follow lytes discharged on potassium supplements close follow up of labs with pcp and nephrology Bradycardia: Digoxin discontinued reduced PM dose of Coreg 6.25 mg /cont AM dose of Coreg 12.5 mg daily some what tachycardic now discharged on previous dose of coreg 12.5mg bid stopped digoxin followup with pcp CAD s/p CABG Holding Lisinopril for marginal BP On Ranexa On Aspirin Atrial fibrillation in sinus rhythm, HR controlled Digoxin-D/ed for bradycardia On Coumadin Will monitor INR Chronic systolic heart failure EF 35% -40 % on Lasix 80mg daily on peritoneal dialysis Will monitor volume status Anemia-likely multifactorial but 2/2 mainly to ESRD on Procrit. - given 2 units PRBC Hg stable at ~9 monitor Severe PAD s/p recent vascular intervention last week s/p 3 stents placed. on Aspirin DM II On ISS/Lantus, glycemic pharmacy consult placed Discharged to [facility] Total time spent on discharge = 45minutes This includes examination of the patient, discharge planning, medication reconciliation, and communication with other providers. Discharge Instructions Discharge Instructions Date of Service Aug 29, 2016. Admission Reason for Admission: Osteomyelitis Discharge Discharge Diagnosis / Problem: CALCANEOUS OSTEOMYELITIS /NON HEALING RT ANKLE ULCER Discharge Goals Goal(s): Improve disease control, Diagnostic testing, Therapeutic intervention Activity Recommendations Activity Level: Assistance Required Therapies: Physical Therapy, Occupational Therapy Weightbearing Status: Right non-weightbearing . Additional Information Patient informed of condition: Yes Advance Directives: No DNR: No Level of Care: Acute Rehab Communicable Disease: No Prognosis: Stable Martino Catheter: No Instructions / Follow-Up Instructions / Follow-Up FOLLOW UP WITH FAMILY PHYSICIAN AFTER DISCHARGE FORM REHAB FOLLOW UP WITH INFECTIOUS DISEASE IN 4-6 WEEKS, BEFORE COMPLETION OF IV ANTIBIOTIC THERAPY DAILY DRESSING PETIT OF RT HEEL WOUND : CLEANSE WITH SALINE, USE BETADINE COVER WITH GAUZE KEEP HEEL ELEVATED , OFF LOAD FOLLOW UP WITH ORTHOPEDICS IN 4-6 WEEKS FOR FOLLOW UP Current Hospital Diet Patient's current hospital diet: Renal Diet, Diabetes Type 2 Diet Discharge Diet Recommended Diet: Diabetes Type 2 Diet, Renal Diet Procedures Procedures Performed: Insertion of Infusaport, Right Internal Jugular Approach, Ultrasound Localization Of Right Internal Jugular Vein, Fluoroscopy for Positioning, Moderate Concious Sedation 6520-4234 Pending Studies Studies pending at discharge: no Laboratory Results Hemoglobin A1c Test 08/15/16 05:50 Range/Units Estimated Average Glucose 137 mg/dl Hemoglobin A1c 6.4 H 4.5-5.6 % Medical Emergencies . Who to Call and When: Medical Emergencies: If at any time you feel your situation is an emergency, please call 911 immediately. . Non-Emergent Contact Non-Emergency issues call your: Primary Care Provider . . "Provider Documentation" section prepared by Ashley Patton. Core Measure Problem Core Measures: None <Electronically signed by Ashley Patton MD> Signed: 08/29/16 2017 Signed: The status of this report is Signed * If report status is Draft, the document has not been finalized by the responsible provider. Addendum: 08/31/16 1134 Addendum: Nomi Perales MD on 08/31/16 @ 11:34 Discharge Inst - Addendum Addendum Notes: LAB: PT/INR DAILY AND ADJUST COUMADIN DOSING. LAB: BMP IN 2-3 DAYS AND FOLLOW RESULTS WITH FAMILY DOCTOR/NEPHROLOGY FOR ADJUSTING POTASSIUM SUPPLEMENTS DOSAGE. Addendum Provider: Addendum Notes were documented by provider Nomi Perales.
== END 2016-08-31 15:00 | DRG 628 ==
LOC: ENRESERVDT → ENRESERVTM → EDBD 17:52 → C.EDC 17:53 → C.MSW 08-15 00:10 → UNDOADMIN 08-15 00:10
PROVIDERS: ADMIT Hospitalist; ATTEND Internal Medicine
PROC: 0HDMXZZ Extraction of Right Foot Skin, External Approach (ICD-10-PCS; 2016-08-12)
PROC: 0JBQ0ZX Excision of Right Foot Subcutaneous Tissue and Fascia, Open Approach, Diagnostic (ICD-10-PCS; principal; 2016-08-19 11:30)
PROC: 0YHM0YZ Insertion of Other Device into Right Foot, Open Approach (ICD-10-PCS; principal; 2016-08-19 11:30)
PROC: 0QBL0ZX Excision of Right Tarsal, Open Approach, Diagnostic (ICD-10-PCS; principal; 2016-08-19 11:30)
PROC: 0LBV0ZZ Excision of Right Foot Tendon, Open Approach (ICD-10-PCS; principal; 2016-08-19 11:30)
PROC: 05PY33Z Removal of Infusion Device from Upper Vein, Percutaneous Approach (ICD-10-PCS; 2016-08-24)
PROC: 05HM33Z Insertion of Infusion Device into Right Internal Jugular Vein, Percutaneous Approach (ICD-10-PCS; 2016-08-26)
DX: E11.69 Type 2 diabetes mellitus with other specified complication (principal); I33.0 Acute and subacute infective endocarditis; M86.171 Other acute osteomyelitis, right ankle and foot; L97.419 Non-pressure chronic ulcer of right heel and midfoot with unspecified severity; I13.2 Hypertensive heart and chronic kidney disease with heart failure and with stage 5 chronic kidney disease, or end stage renal disease; I50.22 Chronic systolic (congestive) heart failure; T82.594A Other mechanical complication of infusion catheter, initial encounter; S86.011A Strain of right Achilles tendon, initial encounter; S92.001A Unspecified fracture of right calcaneus, initial encounter for closed fracture; X58.XXXA Exposure to other specified factors, initial encounter; N18.6 End stage renal disease; B95.61 Methicillin susceptible Staphylococcus aureus infection as the cause of diseases classified elsewhere; B95.2 Enterococcus as the cause of diseases classified elsewhere; E11.621 Type 2 diabetes mellitus with foot ulcer; E11.22 Type 2 diabetes mellitus with diabetic chronic kidney disease; I73.9 Peripheral vascular disease, unspecified; I48.2 Chronic atrial fibrillation; I25.10 Atherosclerotic heart disease of native coronary artery without angina pectoris; F32.9 Major depressive disorder, single episode, unspecified; E87.6 Hypokalemia; D63.1 Anemia in chronic kidney disease; N25.0 Renal osteodystrophy; R79.1 Abnormal coagulation profile; R00.1 Bradycardia, unspecified; Y71.8 Miscellaneous cardiovascular devices associated with adverse incidents, not elsewhere classified; Z99.2 Dependence on renal dialysis; Z95.1 Presence of aortocoronary bypass graft; Z95.2 Presence of prosthetic heart valve; Z98.61 Coronary angioplasty status; Z98.62 Peripheral vascular angioplasty status; Z86.79 Personal history of other diseases of the circulatory system; Z85.46 Personal history of malignant neoplasm of prostate; Z90.79 Acquired absence of other genital organ(s); Z90.81 Acquired absence of spleen; Z89.411 Acquired absence of right great toe; Z89.412 Acquired absence of left great toe; Z79.01 Long term (current) use of anticoagulants; Z79.4 Long term (current) use of insulin; Z79.82 Long term (current) use of aspirin; Z79.899 Other long term (current) drug therapy; Z83.3 Family history of diabetes mellitus; Z82.49 Family history of ischemic heart disease and other diseases of the circulatory system; Z80.1 Family history of malignant neoplasm of trachea, bronchus and lung; I87.2 Venous insufficiency (chronic) (peripheral); L89.610 Pressure ulcer of right heel, unstageable; L89.890 Pressure ulcer of other site, unstageable

== ENCOUNTER 2016-09-15 16:28 | Inpatient (IN) | payer OTHER ==
[~2016-09-15] VITALS: Ht 175.3 cm; Wt 82.5 kg
[~2016-09-15 16:28] MED LIST changes: +AMX250 PO; +CEFT1INJ57 IV; +CHOL1CAP93 PO; -CHOL1TAB42 PO; -DIGO0.1267 PO; +POTA-74 PO; +RFM300 PO; +ULT50X PO
[2016-09-15] MEDS ORDERED: INSDGIPEN SC (17:24)
[2016-09-15] MEDS ORDERED: WARF2TAB PO (17:27)
[2016-09-15] MEDS ORDERED: SENN-104 PO (17:30)
[2016-09-15 17:40] LABS: BASO ABS # 0.09 K/uL (0-0.2); EOS % 0.3 %; HEMATOCRIT 28.2 % (42-52); IG% 1.1 %; LYMPH % 19.3 %; LYMPH ABS # 1.68 K/uL (1.2-3.4); MEAN CORPUSCULAR HEMOGLOBIN 32.7 pg (25-34); MEAN CORPUSCULAR HGB CONC 30.9 g/dl (32-36); MEAN PLATELET VOLUME 9.5 fL (7.4-10.4); MONO % 9.2 %; NEUT % 69.1 %; PLATELET COUNT 224 K/uL (130-400); RED BLOOD COUNT 2.66 M/uL (4.7-6.1); WHITE BLOOD COUNT 8.71 K/uL (4.8-10.8)
[2016-09-15 17:47] LABS: INR 1.7 (0.9-1.1); PROTHROMBIN TIME (PATIENT) 18.7 SECONDS (9.0-12.0)
[2016-09-15 17:50] LABS: ISTAT CREATININE 8.1 mg/dl (0.6-1.3); ISTAT HEMOGLOBIN 8.8 g/dl (14.0-18.0); ISTAT IONIZED CALCIUM 0.88 mmol/l (1.12-1.32)
--- NOTE | 2016-09-15 17:54 | DIAGNOSTIC IMAGING REPORT ---
CHEST ONE VIEW PORTABLE CLINICAL HISTORY: Fever. Cough. COMPARISON STUDY: Chest radiograph every 2016. FINDINGS: A right internal jugular [id number], median sternotomy wires, mediastinal surgical clips and prosthetic cardiac valves are noted. There are old right rib fractures. There is no pneumothorax. A small left pleural effusion is present. There is pulmonary vascular congestion. Bibasilar opacities persist. IMPRESSION: 1. Persistent bibasilar opacities which may reflect pneumonia or atelectasis. Radiographic follow up is recommended to ensure resolution. 2. Small left pleural effusion. 3. Pulmonary vascular congestion. Electronically signed by: Ahsan Choi M.D. 09/15/2016 5:53 PM Dictated Date/Time: 09/15/2016 5:51 PM
[2016-09-15] MEDS ORDERED: PIPERACILLIN/TAZOBACTAM 4.5 GM/100ML D5W IV STA (18:00)
[2016-09-15] MEDS ORDERED: VANCOMYCIN INJ 2,000 MG in SODIUM CHLORIDE 0.9% 500ML 500 ML IV STA (18:00)
[2016-09-15 18:14] LABS: ALKALINE PHOSPHATASE 116 U/L (45-117); ALT/SGPT 46 U/L (12-78); AST/SGOT 219 U/L (15-37); BLOOD UREA NITROGEN 45 mg/dl (7-18); BUN/CREATININE RATIO 5.2 (10-20); CALCIUM 7.2 mg/dl (8.5-10.1); CARBON DIOXIDE 23 mmol/L (21-32); CHLORIDE 96 mmol/L (98-107); CKMB/CK RATIO 3.9 (0-3.0); GLUCOSE 133 mg/dl (70-99); MAGNESIUM 1.7 mg/dl (1.8-2.4); POTASSIUM 4.8 mmol/L (3.5-5.1); SODIUM 135 mmol/L (136-145)
--- NOTE | 2016-09-15 18:44 | DIAGNOSTIC IMAGING REPORT ---
CT OF THE HEAD WITHOUT CONTRAST CLINICAL HISTORY: Altered mental status. COMPARISON STUDY: Head CT July 01, 2016. CT DOSE: 1288.95 mGy.cm TECHNIQUE: Helical axial images of the head were obtained without IV contrast. Automated exposure control was utilized for the study. FINDINGS: No acute intracranial hemorrhage, midline shift or mass effect is present. Ventricular system is stable. Basilar cisterns are patent. There are no extra-axial collections. There are no findings to suggest acute dural sinus thrombosis or acute territorial infarct. Moderate white matter hypodensity suggests small vessel disease. There are post surgical findings consistent with a right mastoidectomy. Visualized portions of the sinuses and the mastoid air cells are clear. There are no significant calvarial abnormalities. IMPRESSION: No acute intracranial findings. Electronically signed by: Ahsan Choi M.D. 09/15/2016 6:42 PM Dictated Date/Time: 09/15/2016 6:40 PM
[2016-09-15] MEDS ORDERED: ACETAMINOPHEN 325 MG TAB PO PRN (20:15)
[2016-09-15] MEDS ORDERED: MAGNESIUM SULFATE 1GM / D5W 1 GM in PREMIXED IN D5W 100 ML IV STA (20:15)
[2016-09-15] MEDS ORDERED: ONDANSETRON INJ 2 MG/ML 2 ML VIAL IV PRN (20:15)
[2016-09-15] MEDS ORDERED: AMX250 PO (20:21)
[2016-09-15] MEDS ORDERED: LNX125 PO (20:21)
[2016-09-15 20:48] LABS: ANISOCYTOSIS PRESENT; COMPLETE YES; POLYCHROMASIA 1+
[2016-09-15] MEDS ORDERED: MAGNESIUM SULFATE 1GM / D5W 1 GM BAG IV STA (20:59)
[2016-09-15] MEDS ORDERED: PROCHLORPERAZINE MALEATE 10 MG TAB PO PRN (21:30)
[2016-09-15] MEDS ORDERED: MECLIZINE HCL 25 MG TAB PO PRN (21:30)
[2016-09-15] MEDS ORDERED: NITROGLYCERIN 0.4 MG SL PER TAB CHARGE SL PRN (21:30)
[2016-09-15] MEDS ORDERED: GLUCOSE 10 TABS/TUBE PO PRN (21:45)
[2016-09-15] MEDS ORDERED: GLUCOSE 40% GEL 15 GM TUBE PO PRN (21:45)
[2016-09-15] MEDS ORDERED: GLUCAGON FOR INJ 1 MG VIAL SQ PRN (21:45)
--- NOTE | 2016-09-15 21:50 | History and Physical ---
History & Physical Date & Time of Service: Sep 15, 2016 at 20:22 Chief Complaint: Disoriented, Coughing- Referred Primary Care Physician: Letha Obregon M.D. History of Present Illness Source: patient, family ( and daugther at bedside), hospital records This is a 76 year old male with PMH of ESRD on PD, CAD s/p CABG, Afib on Coumadin, chronic systolic CHF EF 35-40%, s/p bioprosthetic AVR, bioprosthetic MVR, anemia, PAD, DM type 2, and other problems listed below who presents to the ED with altered mental status. Hx obtained from records and family due to patient's mental status. 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 He was d/c to rehab then returned home with . He is on IV Rocephin via port and PO amoxicillin. Family states he was at baseline on Monday morning (3 days ago) but that night started developed confusion which progressively worsened. Family describes confusion as mumbling and and not making sense. At baseline he is oriented to person and place. Currently only oriented to person (recognizes family). Family states pt had similar episodes of confusion in the past related to infection and anemia. Family reports associated generalized weakness and poor PO intake. states urine output is decreased- usually voids 30-60 cc 3-4x per day but today only voided 30 cc x 1. Patient also has productive cough with clear sputum which he had for 1 month but worsened over past 2 weeks. No em aspiration episodes while eating. Had 1 episode posttussive vomiting of mucous yesterday. Chronic POWERS is worse today. Patient was seen by ortho (Dr. Blandon) and ID (Valerie Ayala PA-C) today. At ortho appt sutures were removed from right heel. Wound was thought to be improving. There is no drainage or pain. Family denies fever, chills, rhinorrhea , complaints of chest pain, abdominal pain, diarrhea, edema, abnormal bleeding. Patient is on PD every other evening. Last PD yesterday evening. On last admission digoxin was d/c for bradycardia but was giving it at home as she was unaware. She states HR has run 100s at home. 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 Status: Chronic Surgical Problems: (1) H/O colonoscopy Status: Chronic (2) H/O heart artery stent Status: Resolved (3) H/O radical prostatectomy Status: Chronic (4) H/O splenectomy Status: Resolved (5) History of cataract surgery Status: Chronic (6) History of dental surgery Status: Chronic (7) History of procedure for peripheral vascular disease Status: Chronic (8) S/P AVR Permanent Comment: bioprosthetic Status: Chronic (9) S/P CABG x 5 Status: Chronic (10) S/P MVR (mitral valve repair) Permanent Comment: bioprosthetic Status: Chronic Family History Diabetes mellitus BROTHER FH: CAD (coronary artery disease) MOTHER BROTHER SISTER FH: lung cancer FATHER Social History Smoking Status: Never Smoker Drug Use: none Marital Status: Housing status: lives with significant other Occupational Status: retired, disabled Immunizations History of Influenza Vaccine: Yes Influenza Vaccine Date: Mar 19, 2016 History of Tetanus Vaccine?: Yes Tetanus Immunization Date: Feb 11, 2008 History of Pneumococcal: Yes Pneumococcal Date: Dec 05, 2014 History of Hepatitis B Vaccine: No Multi-Drug Resistant Organisms History of MDRO: No Allergies Coded Allergies: No Known Allergies (Verified , 08/14/16) Home Medications Scheduled Acetazolamide (Acetazolamide), 250 MG PO BID Amoxicillin (Amoxicillin), 250 MG PO BID Aspirin (Aspirin EC Low Dose), 81 MG PO DAILY Calcium Acetate (Phoslo 667 Mg), 1 CAP PO WM Carvedilol (Coreg), 12.5 MG PO BID Ceftriaxone Sod (Rocephin), 1 GM IV DAILY Cholecalciferol (D3-1000), 1,000 UNITS PO DAILY Citalopram Hydrobromide (Citalopram Hydrobromide), 2 TAB PO DAILY Digoxin (Digoxin), 1 TAB PO UD Fish Oil ([place]-3), 1 CAP PO DAILY Furosemide (Lasix), 80 MG PO DAILY Insulin Glargine (Lantus Solostar), 10 UNITS SC QAM Insulin Lispro (Human) (Humalog), 0 SC ACHS Lisinopril (Lisinopril), 2.5 MG PO HS Multiple Vitamin (Multivitamin), 1 TAB PO DAILY Omeprazole (Prilosec), 20 MG PO DAILY Oyster Shell (Calcium), 500 MG PO DAILY Ranolazine (Ranexa), 1 TAB PO BID Warfarin Sodium (Coumadin), 2 MG PO DAILY Zinc Gluconate (Zinc), 50 MG PO BID Scheduled PRN Meclizine Hcl (Meclizine Hcl), 1 TAB PO TID PRN for Dizziness or Vertigo Nitroglycerin (Nitrostat), 0.4 MG SL UD PRN for Chest Pain Prochlorperazine Maleate (Compazine), 1 TAB PO Q6 PRN for Nausea Tramadol HCl (Tramadol HCl), 50 MG PO Q6H PRN for Pain Review of Systems Unable to obtain complete ROS due to patient's mental status. Physical Exam Vital Signs Date Time Temp Pulse Resp B/P Pulse Ox O2 Delivery O2 Flow Rate FiO2 09/15/16 17:46 93 22 124/47 93 Room Air 09/15/16 17:37 83 09/15/16 16:31 36.3 86 20 110/61 95 Room Air General Appearance: WD/WN, + pertinent finding (alert pleasantly confused elderly male, follows most commands with repeated prompting) Head: normocephalic, atraumatic Eyes: normal inspection, PERRL, sclerae normal, + pertinent finding (difficult to have patient cooperate with EOM exam) ENT: hearing grossly normal, pharynx normal, + pertinent finding (very dry oral mucosa) Neck: supple, no JVD, trachea midline Respiratory/Chest: no respiratory distress, no accessory muscle use, + rhonchi (scattered rhonchi), + pertinent finding (port present ) Cardiovascular: regular rate, rhythm, + systolic murmur Abdomen/GI: normal bowel sounds, non tender, soft, + pertinent finding (PD catheter in place) Extremities/Musculoskelatal: no pedal edema, + pertinent finding (bilateral great toe amputations. RLE in boot with dressed ulcerations on heel and toes) Neurologic/Psych: alert, normal mood/affect, + pertinent finding (pleasantly confused, oriented x 1 (recognizes family), follows most commands with repeated prompting, no dysarthria, no facial droop, no focal motor deficit) Skin: warm/dry, + pallor, + pertinent finding (wonds) Diagnostics Laboratory Results Results Past 24 Hours Test 09/15/16 17:24 09/15/16 17:32 09/15/16 17:36 09/15/16 19:56 Range/Units White Blood Count 8.71 4.8-10.8 K/uL Red Blood Count 2.66 4.7-6.1 M/uL Hemoglobin 8.7 14.0-18.0 g/dL Hematocrit 28.2 42-52 % Mean Corpuscular Volume 106.0 80-100 fL Mean Corpuscular Hemoglobin 32.7 25-34 pg Mean Corpuscular Hemoglobin Concent 30.9 32-36 g/dl Platelet Count 224 130-400 K/uL Mean Platelet Volume 9.5 7.4-10.4 fL Neutrophils (%) (Auto) 69.1 % Lymphocytes (%) (Auto) 19.3 % Monocytes (%) (Auto) 9.2 % Eosinophils (%) (Auto) 0.3 % Basophils (%) (Auto) 1.0 % Neutrophils # (Auto) 6.01 1.4-6.5 K/uL Lymphocytes # (Auto) 1.68 1.2-3.4 K/uL Monocytes # (Auto) 0.80 0.11-0.59 K/uL Eosinophils # (Auto) 0.03 0-0.5 K/uL Basophils # (Auto) 0.09 0-0.2 K/uL RDW Standard Deviation 68.8 36.4-46.3 fL RDW Coefficient of Variation 18.2 11.5-14.5 % Immature Granulocyte % (Auto) 1.1 % Immature Granulocyte # (Auto) 0.10 0.00-0.02 K/uL Prothrombin Time 18.7 9.0-12.0 SECONDS Prothromb Time International Ratio 1.7 0.9-1.1 Sodium Level 135 136-145 mmol/L Potassium Level 4.8 3.5-5.1 mmol/L Chloride Level 96 98-107 mmol/L Carbon Dioxide Level 23 21-32 mmol/L Anion Gap 16.0 23.0 16-25 mmol/L Blood Urea Nitrogen 45 7-18 mg/dl Creatinine 8.70 0.60-1.40 mg/dl Estimated GFR () 6.2 Estimated GFR (Non- 5.3 BUN/Creatinine Ratio 5.2 10-20 Random Glucose 133 70-99 mg/dl Calcium Level 7.2 8.5-10.1 mg/dl Magnesium Level 1.7 1.8-2.4 mg/dl Total Bilirubin 0.5 0.2-1 mg/dl Direct Bilirubin 0.1 0-0.2 mg/dl Aspartate Amino Transf (AST/SGOT) 219 15-37 U/L Alanine Aminotransferase (ALT/SGPT) 46 12-78 U/L Alkaline Phosphatase 116 45-117 U/L Total Creatine Kinase 41 39-308 U/L Creatine Kinase MB 1.6 0.5-3.6 ng/ml Creatine Kinase MB Ratio 3.9 0-3.0 Troponin I 0.346 0-0.045 ng/ml Total Protein 6.6 6.4-8.2 gm/dl Albumin 1.7 3.4-5.0 gm/dl Bedside Lactic Acid Venous 1.71 0.90-1.70 mmol/L Bedside Hemoglobin 8.8 14.0-18.0 g/dl Bedside Hematocrit 26 42-52 % Bedside Sodium 134 135-144 mEq/L Bedside Potassium 4.9 3.3-5.0 mEq/L Bedside Chloride 95 101-112 mEq/L Bedside Total CO2 21 24-31 mEq/l Bedside Blood Urea Nitrogen 39 7-18 mg/dl Bedside Creatinine 8.1 0.6-1.3 mg/dl Bedside Glucose (other) 130 70-99 mg/dl Bedside Ionized Calcium (Jun) 0.88 1.12-1.32 mmol/l Microbiology Results 09/15/16 Blood Culture, Received Pending 09/15/16 Blood Culture, Received Pending Diagnostic Radiology CHEST ONE VIEW PORTABLE CLINICAL HISTORY: Fever. Cough. COMPARISON STUDY: Chest radiograph every 2016. FINDINGS: A right internal jugular [id number], median sternotomy wires, mediastinal surgical clips and prosthetic cardiac valves are noted. There are old right rib fractures. There is no pneumothorax. A small left pleural effusion is present. There is pulmonary vascular congestion. Bibasilar opacities persist. IMPRESSION: 1. Persistent bibasilar opacities which may reflect pneumonia or atelectasis. Radiographic follow up is recommended to ensure resolution. 2. Small left pleural effusion. 3. Pulmonary vascular congestion. CT OF THE HEAD WITHOUT CONTRAST CLINICAL HISTORY: Altered mental status. COMPARISON STUDY: Head CT July 01, 2016. CT DOSE: 1288.95 mGy.cm TECHNIQUE: Helical axial images of the head were obtained without IV contrast. Automated exposure control was utilized for the study. FINDINGS: No acute intracranial hemorrhage, midline shift or mass effect is present. Ventricular system is stable. Basilar cisterns are patent. There are no extra-axial collections. There are no findings to suggest acute dural sinus thrombosis or acute territorial infarct. Moderate white matter hypodensity suggests small vessel disease. There are post surgical findings consistent with a right mastoidectomy. Visualized portions of the sinuses and the mastoid air cells are clear. There are no significant calvarial abnormalities. IMPRESSION: No acute intracranial findings. EKG wide QRS rhythm, right bundle branch block, appears similar to prior EKG Impression Assessment and Plan ALTERED MENTAL STATUS Possible metabolic encephalopathy due to pneumonia Rule out UTI- UA and urine culture pending CT head- no acute findings Ammonia level WNL Dehydration may be contributing- will do 500 cc of gentle IVF's [facility] PNEUMONIA Afebrile; no leukocytosis; HR and BP stable; POC lactic acid 1.7 -> serum lactate pending Vancomycin and Zosyn given in ER Continue empiric Vancomycin and Zosyn Blood cultures pending Check sputum culture, MRSA swab, influenza PCR Consult infectious disease CALCANEUS OSTEOMYELITIS/ NON HEALING WOUND RIGHT HEEL S/p debridement 08/19/16; wound culture grew staph aureus, MSSS /corynebacterium/ Enteroccocus Evaluated by Dr. Blandon in clinic today- sutures removed, wound thought to be improving Has been on Rocephin and amoxicillin (plan for 6 wk course) as outpatient and f/ w ID Abx changed to Vancomycin and Zosyn for now Consult infectious disease Consult wound care nurse MITRAL VALVE VEGETATION Possible vegetation on TTE last admission Hx bioprosthetic aortic and mitral valve replacements Had cardiology eval- poor candidate for mitral valve replacement Has been on Rocephin and amoxicillin (plan for 6 wk course) as outpatient Abx changed to Vancomycin and Zosyn ELEVATED TROPONIN Possible troponin leak due to anemia? -> will be transfused 1 unit tonight History of CAD EKG appears unchanged Trend serial cardiac enzymes Continue Ranexa and aspirin CHRONIC ANEMIA Hg is 8.7; was 7's -> 9's on last admission (was transfused 2 units pRBC) Family denies bleeding Will transfuse 1 unit tonight Trend CBC HYPOMAGNESEMIA Replace and monitor ATRIAL FIBRILLATION Rate is controlled Digoxin recently d/c due to bradycardia but was still giving at home Hold digoxin for now while level is still pending Continue carvedilol INR is sub-therapeutic- will give increased dose of Coumadin tonight (3 mg) Recheck INR in am and re-dose Coumadin accordingly ESRD ON PD On PD every other evening Due Saturday 09/16 Nephrology consulted CHRONIC SYSTOLIC CHF EF 35-40% Appears hypovolemic on exam Hold diuretics Getting gentle IVF's HYPERTENSION BP is stable Continue lisinopril Diuretics held DM TYPE 2 Hold Lantus for poor PO intake Insulin sliding scale coverage DVT PROPHYLAXIS Coumadin CODE STATUS DNR per my discussion with the patient's Patient seen in collaboration with Dr. Moya. Please see his addendum. VTE Prophylaxis VTE Risk Assessment Done? Y/N: Yes Risk Level: Moderate Given or contraindicated: Warfarin (Coumadin)
[2016-09-15] MEDS ORDERED: PATIENT'S HEIGHT AND/OR WEIGHT NEEDED SCH (22:15)
[2016-09-15] MEDS ORDERED: VANCOMYCIN CONSULT ACTIVE PRN (22:38)
[2016-09-15] MEDS ORDERED: PIPERACILL/TAZOBAC CONSULT ACTIVE PRN (22:38)
[2016-09-15 23:00] VITALS: BP 90/70; PULSE 115; TEMP 36.6; O2SAT 96; Ht 175.3 cm; Wt 82.5 kg
[2016-09-15] MEDS ORDERED: WARFARIN SOD 3 MG TAB PO ONE (23:15)
--- NOTE | 2016-09-15 23:16 | EMERGENCY ROOM VISIT NOTE ---
History Report prepared by Jourdan: Sushant Lemon Under the Supervision of: Dr. Jason Block D.O. First contact with patient: 16:58 Chief Complaint: CONFUSION Stated Complaint: DISORIENTED, COUGHING- REFERRED History of Present Illness The patient is a 76 year old male who presents to the Emergency Room with complaints of worsening confusion over the past three days. The patient is normally alert, oriented, and able to communicate with is family. He has been mumbling and making little sense for three days. Per family, the patient also has had a cough for three days that produces mucous. The patient has an infection of his right heel, for which he follows up with Orthopedics. He saw Orthopedics and Infectious Disease today. The family denies any fevers. Complete history may be limited secondary to altered mental status. Source of History: family History Limited By: AMS Onset: three days Position: other (global) Quality: other (confused) Timing: worsening Associated Symptoms: No fevers Review of Systems ROS may be limited secondary to altered mental status. Past Medical & Surgical Medical Problems: (1) Afib (2) Altered mental state (3) Altered mental status (4) Anemia (5) Aortic stenosis (6) CAD (coronary artery disease) (7) CHF (congestive heart failure) (8) Depression (9) Dialysis patient (10) DM2 (diabetes mellitus, type 2) (11) Elevated troponin (12) ESRD (end stage renal disease) (13) ESRD on peritoneal dialysis (14) HLD (hyperlipidemia) (15) HTN (hypertension) (16) Osteomyelitis (17) PAD (peripheral artery disease) (18) Prostate CA (19) Toe amputation status (20) UTI (urinary tract infection) (21) Weakness Surgical Problems: (1) H/O colonoscopy (2) H/O heart artery stent (3) H/O radical prostatectomy (4) H/O splenectomy (5) History of cataract surgery (6) History of dental surgery (7) History of procedure for peripheral vascular disease (8) S/P AVR (9) S/P CABG x 5 (10) S/P MVR (mitral valve repair) Family History Diabetes mellitus BROTHER FH: CAD (coronary artery disease) MOTHER BROTHER SISTER FH: lung cancer FATHER Social History Smoking Status: Never Smoker Drug Use: none Marital Status: Occupation Status: retired, disabled Current/Historical Medications Scheduled Acetazolamide (Acetazolamide), 250 MG PO BID Amoxicillin (Amoxicillin), 250 MG PO BID Aspirin (Aspirin EC Low Dose), 81 MG PO DAILY Calcium Acetate (Phoslo 667 Mg), 1 CAP PO WM Carvedilol (Coreg), 12.5 MG PO BID Ceftriaxone Sod (Rocephin), 1 GM IV DAILY Cholecalciferol (D3-1000), 1,000 UNITS PO DAILY Citalopram Hydrobromide (Citalopram Hydrobromide), 2 TAB PO DAILY Digoxin (Digoxin), 1 TAB PO UD Fish Oil ([place]-3), 1 CAP PO DAILY Furosemide (Lasix), 80 MG PO DAILY Insulin Glargine (Lantus Solostar), 10 UNITS SC QAM Insulin Lispro (Human) (Humalog), 0 SC ACHS Lisinopril (Lisinopril), 2.5 MG PO HS Multiple Vitamin (Multivitamin), 1 TAB PO DAILY Omeprazole (Prilosec), 20 MG PO DAILY Oyster Shell (Calcium), 500 MG PO DAILY Ranolazine (Ranexa), 1 TAB PO BID Warfarin Sodium (Coumadin), 2 MG PO DAILY Zinc Gluconate (Zinc), 50 MG PO BID Scheduled PRN Meclizine Hcl (Meclizine Hcl), 1 TAB PO TID PRN for Dizziness or Vertigo Nitroglycerin (Nitrostat), 0.4 MG SL UD PRN for Chest Pain Prochlorperazine Maleate (Compazine), 1 TAB PO Q6 PRN for Nausea Tramadol HCl (Tramadol HCl), 50 MG PO Q6H PRN for Pain Allergies Coded Allergies: No Known Allergies (Verified , 08/14/16) Physical Exam Vital Signs Date Time Temp Pulse Resp B/P Pulse Ox O2 Delivery O2 Flow Rate FiO2 09/15/16 17:46 93 22 124/47 93 Room Air 09/15/16 17:37 83 09/15/16 16:31 36.3 86 20 110/61 95 Room Air Physical Exam GENERAL: Ill-appearing, laying on bed, lethargic. EYE EXAM: normal conjunctiva. OROPHARYNX: no exudate, no erythema, lips, buccal mucosa, and tongue normal and mucous membranes are dry NECK: supple, no nuchal rigidity, no adenopathy, non-tender LUNGS: Course sounds bilaterally. Normal chest wall mechanics HEART: Heart sounds are distant. CHEST: Port right chest wall. ABDOMEN: abdomen soft, non-tender, normo-active bowel sounds, no masses, no rebound or guarding. Peritoneal dialysis catheter in place. BACK: Back is symmetrical on inspection and there is no deformity, no midline tenderness, no CVA tenderness. SKIN: no rashes and no bruising UPPER EXTREMITIES: upper extremities are grossly normal. LOWER EXTREMITIES: No pitting edema. Right heel with necrosis and first toe amputation, ulcers on second and third digit. NEURO EXAM: Normal sensorium. Medical Decision & Procedures ER Provider Diagnostic Interpretation: Xray results per the radiologist and my interpretation. CHEST ONE VIEW PORTABLE CLINICAL HISTORY: Fever. Cough. COMPARISON STUDY: Chest radiograph every 2016. FINDINGS: A right internal jugular [id number], median sternotomy wires, mediastinal surgical clips and prosthetic cardiac valves are noted. There are old right rib fractures. There is no pneumothorax. A small left pleural effusion is present. There is pulmonary vascular congestion. Bibasilar opacities persist. IMPRESSION: 1. Persistent bibasilar opacities which may reflect pneumonia or atelectasis. Radiographic follow up is recommended to ensure resolution. 2. Small left pleural effusion. 3. Pulmonary vascular congestion. Electronically signed by: Ahsan Choi M.D. 09/15/2016 5:53 PM Dictated Date/Time: 09/15/2016 5:[address] OF THE HEAD WITHOUT CONTRAST CLINICAL HISTORY: Altered mental status. COMPARISON STUDY: Head CT July 01, 2016. CT DOSE: 1288.95 mGy.cm TECHNIQUE: Helical axial images of the head were obtained without IV contrast. Automated exposure control was utilized for the study. FINDINGS: No acute intracranial hemorrhage, midline shift or mass effect is present. Ventricular system is stable. Basilar cisterns are patent. There are no extra-axial collections. There are no findings to suggest acute dural sinus thrombosis or acute territorial infarct. Moderate white matter hypodensity suggests small vessel disease. There are post surgical findings consistent with a right mastoidectomy. Visualized portions of the sinuses and the mastoid air cells are clear. There are no significant calvarial abnormalities. IMPRESSION: No acute intracranial findings. Electronically signed by: Ahsan Choi M.D. 09/15/2016 6:42 PM Dictated Date/Time: 09/15/2016 6:40 PM Laboratory Results 09/15/16 17:24 Red Blood Count 2.66, Mean Corpuscular Volume 106.0, Mean Corpuscular Hemoglobin 32.7, Mean Corpuscular Hemoglobin Concent 30.9, Mean Platelet Volume 9.5, Neutrophils (%) (Auto) 69.1, Lymphocytes (%) (Auto) 19.3, Monocytes (%) ( Auto) 9.2, Eosinophils (%) (Auto) 0.3, Basophils (%) (Auto) 1.0, Neutrophils # ( Auto) 6.01, Lymphocytes # (Auto) 1.68, Monocytes # (Auto) 0.80, Eosinophils # ( Auto) 0.03, Basophils # (Auto) 0.09 09/15/16 17:24 Test 09/15/16 17:24 09/15/16 17:32 09/15/16 17:36 White Blood Count 8.71 K/uL (4.8-10.8) Red Blood Count 2.66 M/uL (4.7-6.1) Hemoglobin 8.7 g/dL (14.0-18.0) Hematocrit 28.2 % (42-52) Mean Corpuscular Volume 106.0 fL (80-100) Mean Corpuscular Hemoglobin 32.7 pg (25-34) Mean Corpuscular Hemoglobin Concent 30.9 g/dl (32-36) Platelet Count 224 K/uL (130-400) Mean Platelet Volume 9.5 fL (7.4-10.4) Neutrophils (%) (Auto) 69.1 % Lymphocytes (%) (Auto) 19.3 % Monocytes (%) (Auto) 9.2 % Eosinophils (%) (Auto) 0.3 % Basophils (%) (Auto) 1.0 % Neutrophils # (Auto) 6.01 K/uL (1.4-6.5) Lymphocytes # (Auto) 1.68 K/uL (1.2-3.4) Monocytes # (Auto) 0.80 K/uL (0.11-0.59) Eosinophils # (Auto) 0.03 K/uL (0-0.5) Basophils # (Auto) 0.09 K/uL (0-0.2) RDW Standard Deviation 68.8 fL (36.4-46.3) RDW Coefficient of Variation 18.2 % (11.5-14.5) Immature Granulocyte % (Auto) 1.1 % Immature Granulocyte # (Auto) 0.10 K/uL (0.00-0.02) Polychromasia 1+ Anisocytosis PRESENT Macrocytosis PRESENT Prothrombin Time 18.7 SECONDS (9.0-12.0) Prothromb Time International Ratio 1.7 (0.9-1.1) Estimated GFR () 6.2 Estimated GFR (Non- 5.3 BUN/Creatinine Ratio 5.2 (10-20) Calcium Level 7.2 mg/dl (8.5-10.1) Magnesium Level 1.7 mg/dl (1.8-2.4) Total Bilirubin 0.5 mg/dl (0.2-1) Direct Bilirubin 0.1 mg/dl (0-0.2) Aspartate Amino Transf (AST/SGOT) 219 U/L (15-37) Alanine Aminotransferase (ALT/SGPT) 46 U/L (12-78) Alkaline Phosphatase 116 U/L (45-117) Total Protein 6.6 gm/dl (6.4-8.2) Albumin 1.7 gm/dl (3.4-5.0) Bedside Lactic Acid Venous 1.71 mmol/L (0.90-1.70) Bedside Hemoglobin 8.8 g/dl (14.0-18.0) Bedside Hematocrit 26 % (42-52) Bedside Sodium 134 mEq/L (135-144) Bedside Potassium 4.9 mEq/L (3.3-5.0) Bedside Chloride 95 mEq/L (101-112) Bedside Total CO2 21 mEq/l (24-31) Anion Gap 23.0 mmol/L (16-25) Bedside Blood Urea Nitrogen 39 mg/dl (7-18) Bedside Creatinine 8.1 mg/dl (0.6-1.3) Bedside Glucose (other) 130 mg/dl (70-99) Bedside Ionized Calcium (Jun) 0.88 mmol/l (1.12-1.32) Laboratory results per my review. Medications Administered Medications (Trade) Dose Ordered Sig/Andrei Route Start Time Stop Time Status Last Admin Dose Admin Vancomycin HCl/ Sodium Chloride (Vancomycin Inj/ Nss 500ml) 540 ml @ 200 mls/hr ONE STAT IV 09/15/16 18:00 09/15/16 20:41 DC 09/15/16 18:41 200 MLS/HR Piperacillin Sod/ Tazobactam Sod (Zosyn Iv) 4.5 gm NOW STAT IV 09/15/16 18:00 09/15/16 18:02 DC 09/15/16 18:10 4.5 GM ECG Indication: altered mental status Rate (beats per minute): 120 Rhythm: other (wide complex rhythm) Findings: other (poor baseline, rightward axis) Change: No acute change compared to EKG dated 2016. ED Course ED COURSE: Vital signs were reviewed and were normal. The patients medical record was reviewed The above diagnostic studies were performed and reviewed. ED treatments and interventions as stated above. 1700: The patient was evaluated in room A9b. A complete history and physical examination was performed. 1800: Zosyn 4.5 gm IV, Vancomycin 2000 mg / NSS 540 ml @ 200 mls/hr. 1845: Updated the patient and his family. 185: Discuss[facility] the case with [facility] The patient will be evaluated. 1900: Upon reevaluation, the patient is stable.I discussed my findings with the patient and he understands and agrees with the treatment plan. Based on the patients age, coexisting illnesses, exam and lab findings the decision to treat as an inpatient was made. The patient remained stable while under my care. The patient will be evaluated for further management. Medical Decision Differential diagnosis includes etiologies such as sepsis, UTI, pneumonia, metabolic, electrolyte abnormalities, cardiac sources, intracerebral event, toxicologic, neurologic, as well as others were entertained. Patient is a chronically ill-appearing 76-year-old male that presents the ER for altered mental status. For the past 3 days he has been confused and mumbling his words. Family also notes that he has had a productive cough during the same duration. Patient has a previous surgery on his right heel which does have necrosis. He also has a questionable endocarditis which she is being treated for. Patient is alert and follows commands but does mumble. Vitals are stable. He does have peritoneal dialysis as well. His exam is fairly benign. Labs show a chronic anemia. BMP shows a creatinine of 8. Lactic acid is 1.7. Troponin is detectable at 0.3. EKG was unchanged from previous. Patient was given IV vancomycin and Zosyn along with fluids. He is admitted to internal medicine with a chest x-ray suggesting bilateral lower lobe consolidations covered with IV antibiotics which I favor is likely causing his altered mentation. Consults Time Called: 1849 Consulting Physician: Megan Javier PA-C, [facility]. Returned Call: [phone]: Discussed the case with Megan Javier PA-C, [facility]. The patient will be evaluated. Impression Primary Impression: Altered mental status Additional Impressions: Elevated troponin Creatinine elevation Anemia Scribe Attestation The scribe's documentation has been prepared under my direction and personally reviewed by me in its entirety. I confirm that the note above accurately reflects all work, treatment, procedures, and medical decision making performed by me. Departure Information Dispostion Being Evaluated By Hospitalist Prescriptions Amoxicillin (Amoxicillin) 250 Mg Cap 250 MG PO BID for 60 Days, #120 CAP Prov: Shelia Javier PA-C 09/15/16 Referrals Letha Obregon M.D. (PCP) Patient Instructions My [facility] Problem Qualifiers Primary Impression: Altered mental status Altered mental status type: unspecified Qualified Codes: R41.82 - Altered mental status, unspecified Additional Impressions: Anemia Anemia type: unspecified type Qualified Codes: D64.9 - Anemia, unspecified
--- NOTE | 2016-09-15 23:28 | Progress Note ---
Progress Note Date of Service Sep 15, 2016. Progress Note ATTENDING ADDENDUM care coordinated with ROLO Javier please refer to her notes for full details, I agree with her notes patient seen and examined, records reviewed by myself as well on exam, patient seen with and son at bedside pleasantly confused, not in distress coughing no chest pain, nausea, diarrhea per family VS noted and reviewed disoriented, not in distress, speaks in sentences with no effort nor accessory muscle use ENT: (+) dry oral mucosa normal rate, regular rhythm, no murmurs mild rales bilaterally, no wheezing non distended, soft, nontender no bipedal edema, erythema, warmth no neuro deficits WBC 8.7 Crea 8.7 CXR bilateral infiltrates ASSESSMENT/PLAN> 76 year old male currently on antibiotic course for Foot Osteomyelitis, Possible Endocarditis, ESRD on Peritoneal Dialysis, DM, HTN, presenting with altered mental status x 3 days. ALTERED MENTAL STATUS POSSIBLE METABOLIC ENCEPHALOPATHY FROM [facility]ARE [facility] PNEUMONIA, R/O UTI ; DEHYDRATION - change antibiotics to Vanco and Zosyn ff up cultures ID consulted ESRD ON PERITONEAL HEMODIALYSIS - dehydrated on presentation gentle IV fluids given - Nephro consulted ANEMIA - no signs of active bleed likely from CKD - Hg 8.8 troponin mildly elevated will transfuse 1 unit pRBC other diagnoses and plan of care as per ROLO Javier's notes Marco A Moya MD
[2016-09-15 23:34] VITALS: BP 108/54; PULSE 107; TEMP 36.8; O2SAT 96
[2016-09-15 23:59] LABS: CKMB/CK RATIO 5.4 (0-3.0)
[2016-09-16] VITALS (32 sets, daily range): BP systolic 85–115; BP diastolic 39–89; PULSE 78–128; TEMP 36.4–38.3; O2SAT 83–98
[2016-09-16] MEDS ORDERED: SODIUM CHLORIDE 0.9% 500ML 500 ML IV SCH (01:00)
[2016-09-16 01:03] LABS: INFLUENZA A PCR Neg for Influ A (NEG); INFLUENZA B PCR Neg for Influ B (NEG)
[2016-09-16] MEDS: PIPERACILL/TAZOBAC IV 4.5 GM in DEXTROSE 5% 100ML IV SCH ×2 (05:22→17:51)
[2016-09-16 05:45] LABS: HEMATOCRIT 29.9 % (42-52); MEAN CELL VOLUME 103.5 fL (80-100); MEAN CORPUSCULAR HEMOGLOBIN 32.2 pg (25-34); MEAN CORPUSCULAR HGB CONC 31.1 g/dl (32-36); MEAN PLATELET VOLUME 9.7 fL (7.4-10.4); PLATELET COUNT 189 K/uL (130-400); RED BLOOD COUNT 2.89 M/uL (4.7-6.1); WHITE BLOOD COUNT 9.06 K/uL (4.8-10.8)
[2016-09-16 05:55] LABS: INR 2.2 (0.9-1.1); PROTHROMBIN TIME (PATIENT) 24.1 SECONDS (9.0-12.0)
[2016-09-16 06:39] LABS: BUN/CREATININE RATIO 5.4 (10-20); CALCIUM 7.1 mg/dl (8.5-10.1); CKMB/CK RATIO 4.1 (0-3.0); MAGNESIUM 1.8 mg/dl (1.8-2.4); POTASSIUM 5.1 mmol/L (3.5-5.1)
[2016-09-16] MEDS: SODIUM CHLORIDE 0.9% 1000ML 1,000 ML IV SCH ×2 (08:15→17:52)
[2016-09-16] MEDS ORDERED: ALBUMIN HUMAN 25% 12.5 GM/50 ML VIAL IV SCH (08:30)
--- NOTE | 2016-09-16 08:49 | NEPHROLOGY CONSULTATION ---
DATE OF CONSULTATION: 09/16/2016 ATTENDING OF RECORD: Dr. Moya. REASON FOR CONSULTATION: End-stage renal disease. HISTORY OF PRESENT ILLNESS: This is a 76-year-old male with a significant history of end-stage renal disease on peritoneal dialysis, who has a bioprosthetic aortic valve and mitral valve repair with underlying atrial fibrillation on blood thinners as well as significant arterial disease and diabetes with a history of bypass surgery in the past as well. 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 The patient required a port placement and 6 weeks of antibiotics. [facility]. The patient eventually went home last Monday and the patient was doing well, but then started to become more confused. The patient is also not eating well and we decreased the PD exchanges to every other day temporarily. Wound is slowly improving. The patient was brought in for worsening confusion. REVIEW OF SYSTEMS: Unable to obtain secondary to confusion. PAST MEDICAL HISTORY: Atrial fibrillation, coronary artery disease status post bypass with aortic valve replacement and mitral valve repair, history of prostate cancer, end-stage renal disease on peritoneal dialysis, diabetes, hyperlipidemia, hypertension, and peripheral arterial disease. PAST SURGICAL HISTORY: Fistula placement, PD catheter placement, bypass surgery, aortic valve replacement and mitral valve repair, and cataract surgery. FAMILY HISTORY: Significant for diabetes and heart disease. SOCIAL HISTORY: No smoking. No drugs. No alcohol. He is and lives at home. CURRENT MEDICATIONS: Lisinopril 2.5 mg at night, Coreg 12.5 mg p.o. b.i.d., fish oil 1 gram p.o. daily, multivitamin daily, calcium 500 mg daily, vitamin D 1000 units daily, Celexa 20 mg daily, Protonix 40 mg daily, Ranexa 500 mg p.o. b.i.d., aspirin 81 mg daily, PhosLo 1 p.o. t.i.d. with meals, Zosyn 4.5 grams IV q. 12 hours, normal saline at 60 mL an hour, and vancomycin per pharmacy. PHYSICAL EXAMINATION: VITAL SIGNS: Temperature 37.1, pulse in the low 100s, respiratory rate 17, blood pressure is 93/39, and satting 96% on room air. GENERAL: Awake, but very confused. Oriented to person. EYES: No scleral icterus. ENT: Moist mucous membranes. NECK: Supple. PULMONARY: Clear to auscultation. CARDIAC: Tachy. ABDOMEN: Positive PD catheter. Bowel sounds positive. Soft, nontender, and nondistended. EXTREMITIES: No significant clubbing, cyanosis or edema. Heel wrapped up. NEUROLOGICALLY: [place]id[place] confused. LABORATORIES: White count 9, H\T\H 9.3 and 29.9, and platelet count is 189. Random vancomycin is pending. Digoxin level 0.5. Flu is negative. Sodium level is 135, potassium 5.1, chloride is 96, bicarbonate is 22, BUN is 49, creatinine is 9, glucose 108, calcium 7.1, and mag is 1.8. Troponin 0.346 and trending down. Albumin is 1.7. Blood cultures pending. Chest x-ray shows persistent bibasilar opacities, which may reflect pneumonia or atelectasis, small left pleural effusion and pulmonary vascular congestion. Head CT shows no acute intracranial findings. ASSESSMENT AND PLAN: 1. End-stage renal disease. Does do peritoneal dialysis. We will switch over to hemodialysis during this hospitalization. He does have access in has arm, which we can use. Blood pressure is low and the patient is tachycardic. Agree with IV fluids. We will plan on dialysis today to help lower potassium levels and dialyze for clearance with no fluid removal. 2. Confusion-multiple sources as possibilities. Will screen for peritonitis as a possible source of infection/confusion. In the past has had mental status changes from utis. 2. Hemoglobin 9.3 and we will give Procrit on dialysis. 3. Renal osteodystrophy. The patient has a poor appetite. Albumin levels are low. No indication at this time for phosphate binders. Overall,on broad spectrum antibiotics. Blood cultures are pending. Does have a wound that is improving in the heel. There is always a possibility of PD peritonitis; however, the PD fluid has been clear with no issues with drainage. Overall, the patient is very weak. Poor nutritional status, on chronic antibiotics. Switching over to hemodialysis and dialyze him for clearance and lowering the potassium. Appreciate consultation. HEMANT
[2016-09-16] MEDS ORDERED: ASPIRIN 81 MG ECTAB PO SCH (09:00)
[2016-09-16] MEDS ORDERED: NON-FORMULARY MEDICATION (Zinc Gluconate (Zinc) 50 MG) PO SCH (09:00)
[2016-09-16] MEDS: CALCIUM ACETATE 667MG GELCAP PO SCH ×3 (09:28→16:30)
[2016-09-16] MEDS: INSULIN ASPART 100 UNITS/ML 3 ML PEN SC SCH ×3 (09:43→16:00)
[2016-09-16] MEDS: ASPIRIN 81 MG CHEW PO SCH (09:44)
[2016-09-16] MEDS: CARVEDILOL 12.5 MG TAB PO SCH ×2 (09:45→19:44)
[2016-09-16] MEDS: PANTOprazole SOD 40 MG TAB PO SCH (09:45)
[2016-09-16] MEDS: CHOLECALCIFEROL 1000 INTER.UNIT TAB PO SCH (09:45)
[2016-09-16] MEDS: MULTIVITAMIN TAB PO SCH (09:46)
[2016-09-16] MEDS: RANOLAZINE 500 MG ER TAB PO SCH ×2 (09:46→19:44)
[2016-09-16] MEDS: CITALOPRAM 20 MG TAB PO SCH (09:46)
[2016-09-16] MEDS: OMEGA-3 (PURIFIED FISH OIL) 1 GM CAP PO SCH (09:46)
[2016-09-16] MEDS: CALCIUM CARBONATE 1250MG TAB PO SCH (09:46)
--- NOTE | 2016-09-16 10:23 | Medical Consult ---
Consultation Date of Consultation: Sep 16, 2016. Attending Physician: Manuel Amaral MD Reason for Consultation: HCAP, endocarditis, osteo History of Present Illness Patient is a 76-year-old male who presents to the emergency department after recommendation made by me following an office visit concerns of altered mental status. The patient has history of ESRD on peritoneal dialysis, AFib, CHF, bioprosthetic AVR and MVR, PAD, diabetes, and most recently history of right heel osteomyelitis, MSSA bacteremia, and mitral valve endocarditis. During his office visit yesterday, the patient was noted to have Altered mental status compared to baseline. The patient was not following basic commands, and he was mumbling and coherent phrases. The patient's family stated that he had been mumbling and in coherent for approximately 3 days. The patient has been on IV Rocephin and p.o. amoxicillin home and rehab. He was discharged home from rehab approximately 1 week ago. The patient's family states he has had a cough which also acutely worsened over the past few days. He has been complaining of some back pain. He did follow-up with orthopedics as an outpatient who felt that his wound was healing well. He does continue to have a necrotic appearing area on the right heel. Upon admission to the hospital, the patient's white blood count was 8.71. His creatinine was noted to be 8.70. His troponin was 0.3 for 6. The patient did have a CT scan the which showed no acute intracranial finding. A chest x-ray showed persistent bibasilar opacities which may reflect pneumonia atelectasis. He was also noted to have pulmonary vascular congestion. He was placed on IV vancomycin and Zosyn empirically. Past Medical/Surgical History Medical Problems: (1) Chronic renal failure Status: Acute (2) Creatinine elevation Status: Acute (3) Foot osteomyelitis, right Status: Acute (4) Rupture of right Achilles tendon Status: Acute (5) Severe anemia Status: Acute (6) Supratherapeutic INR Status: Acute (7) UTI (urinary tract infection) Status: Acute Medical Problems: (1) Afib (2) Altered mental state (3) Altered mental status (4) Anemia (5) Aortic stenosis (6) CAD (coronary artery disease) (7) CHF (congestive heart failure) (8) Depression (9) Dialysis patient (10) DM2 (diabetes mellitus, type 2) (11) Elevated troponin (12) ESRD (end stage renal disease) (13) ESRD on peritoneal dialysis (14) HLD (hyperlipidemia) (15) HTN (hypertension) (16) Osteomyelitis (17) PAD (peripheral artery disease) (18) Prostate CA (19) Toe amputation status (20) UTI (urinary tract infection) (21) Weakness Surgical Problems: (1) H/O colonoscopy (2) H/O heart artery stent (3) H/O radical prostatectomy (4) H/O splenectomy (5) History of cataract surgery (6) History of dental surgery (7) History of procedure for peripheral vascular disease (8) S/P AVR (9) S/P CABG x 5 (10) S/P MVR (mitral valve repair) Family History Diabetes mellitus BROTHER FH: CAD (coronary artery disease) MOTHER BROTHER SISTER FH: lung cancer FATHER Noncontributory Social History Smoking Status: Never Smoker Drug Use: none Marital Status: Occupation Status: retired, disabled Allergies Coded Allergies: No Known Allergies (Verified , 08/14/16) Home Medications Reported Home Medications Medications Dose Route/Sig Max Daily Dose Days Date Category Dose Instructions Digoxin 0.125 Mg Tab 1 Tab PO UD 09/15/16 Reported 3x per week on MWF Amoxicillin 250 Mg Cap 250 Mg PO BID 60 09/15/16 Rx Coumadin (Warfarin Sodium) 2 Mg Tab 2 Mg PO DAILY 09/15/16 Reported Lantus Solostar (Insulin Glargine) 100 Unit/Ml Inj 10 Units SC QAM 09/15/16 Reported Tramadol HCl 50 Mg Tab 50 Mg PO Q6H PRN 08/31/16 Rx Rocephin (Ceftriaxone Sodium) 1 Gm Inj 1 Gm IV DAILY 35 08/31/16 Rx CONTINUE TOTAL 6 WEEKS OF THERAPY LAST DAY OF THERAPY 09/27/16 D3-1000 (Cholecalciferol) 1,000 Unit Cap 1,000 Units PO DAILY 08/15/16 Reported Phoslo 667 Mg (Calcium Acetate) 667 Mg Cap 1 Cap PO WM 08/03/16 Reported Humalog (Insulin Lispro (Human)) 100 Unit/Ml Inj 0 SC ACHS 07/07/16 Rx insulin sliding scale gaol 110-140mg/dl correction factor: 1 unit insulin for every 40mg/dl above 140mg/dl blood glucose levels Acetazolamide 250 Mg Tab 250 Mg PO BID 07/02/16 Reported Calcium (Oyster Shell) 500 Mg Tab 500 Mg PO DAILY 07/01/16 Reported Zinc (Zinc Gluconate) 50 Mg Tab 50 Mg PO BID 07/01/16 Reported Ranexa (Ranolazine) 500 Mg Tab 1 Tab PO BID 30 07/01/16 Reported Compazine (Prochlorperazine Maleate) 10 Mg Tab 1 Tab PO Q6 PRN 7 05/26/16 Reported Nitrostat (Nitroglycerin) 0.4 Mg/1 Tab Subl 0.4 Mg SL UD PRN 05/26/16 Reported Meclizine Hcl 25 Mg Tab 1 Tab PO TID PRN 30 05/26/16 Reported Aspirin EC Low Dose (Aspirin) 81 Mg Ectab 81 Mg PO DAILY 05/26/16 Reported Citalopram Hydrobromide 10 Mg Tab 2 Tab PO DAILY 90 03/30/16 Reported [place]-3 (Fish Oil) 1 Ea Cap 1 Cap PO DAILY 08/14/15 Reported Lisinopril 2.5 Mg Tab 2.5 Mg PO HS 05/22/12 Reported Lasix (Furosemide) 40 Mg Tab 80 Mg PO DAILY 05/22/12 Reported Coreg (Carvedilol) 12.5 Mg Tab 12.5 Mg PO BID 05/22/12 Reported Multivitamin (Multiple Vitamin) 1 Tab Tab 1 Tab PO DAILY 12/20/11 Reported Prilosec (Omeprazole) 20 Mg Capcr 20 Mg PO DAILY 12/20/11 Reported Current Inpatient Medications Current Inpatient Medications Medications (Trade) Dose Ordered Sig/Andrei Route Start Time Stop Time Status Last Admin Dose Admin Acetaminophen (Tylenol Tab) 650 mg Q4H PRN PO 09/15/16 20:15 10/15/16 20:14 Ondansetron HCl (Zofran Inj) 4 mg Q6H PRN IV 09/15/16 20:15 10/15/16 20:14 Vancomycin HCl (Consult) 1 ea UD PRN N/A 09/15/16 22:38 10/15/16 22:37 Piperacillin Sod/ Tazobactam Sod (Consult) 1 ea UD PRN N/A 09/15/16 22:38 10/15/16 22:37 Calcium Acetate (Phoslo Cap) 667 mg TIDM PO 09/16/16 07:15 10/16/16 07:59 09/16/16 09:28 667 MG Carvedilol (Coreg Tab) 12.5 mg BID PO 09/16/16 09:00 10/16/16 08:59 09/16/16 09:45 12.5 MG Fish Oil ([place]-3 (Purified Fish Oil) Cap) 1 gm DAILY PO 09/16/16 09:00 10/16/16 08:59 09/16/16 09:46 1 GM Lisinopril (Zestril Tab) 2.5 mg HS PO 09/16/16 21:00 10/16/16 20:59 Meclizine HCl (Antivert Tab) 25 mg TID PRN PO 09/15/16 21:30 10/15/16 21:29 Multivitamins (Multivitamin Tab) 1 tab DAILY PO 09/16/16 09:00 10/16/16 08:59 09/16/16 09:46 1 TAB Nitroglycerin (Nitrostat Tab) 0.4 mg UD PRN SL 09/15/16 21:30 10/15/16 21:29 Calcium Carbonate (oS-Wilian 500 TAB) 500 mg DAILY PO 09/16/16 09:00 10/16/16 08:59 09/16/16 09:46 500 MG Prochlorperazine Maleate (Compazine Tab) 10 mg Q6H PRN PO 09/15/16 21:30 10/15/16 21:29 Cholecalciferol (Vitamin D Tab) 1,000 inter.unit DAILY PO 09/16/16 09:00 10/16/16 08:59 09/16/16 09:45 1,000 INTER.UNIT Citalopram Hydrobromide (celeXA TAB) 20 mg QAM PO 09/16/16 09:00 10/16/16 08:59 09/16/16 09:46 20 MG Pantoprazole Sodium (Protonix Tab) 40 mg QAM PO 09/16/16 09:00 10/16/16 08:59 09/16/16 09:45 40 MG Ranolazine (Ranexa ER Tab) 500 mg BID PO 09/16/16 09:00 10/16/16 08:59 09/16/16 09:46 500 MG Insulin Aspart (novoLOG ASPART) SLIDING SCALE If C... ACHS SC 09/16/16 06:45 10/16/16 06:59 09/16/16 09:43 4 UNITS Glucose (Glucose 40% Gel) 15-30 GRAMS 15 GRAMS... UD PRN PO 09/15/16 21:45 10/15/16 21:44 Glucose (Glucose Chew Tab) 4-8 Tablets 4 Tabl... UD PRN PO 09/15/16 21:45 10/15/16 21:44 Dextrose (Dextrose 50% 50ML Syringe) 25-50ML OF 50% DW IV FOR... UD PRN IV 09/15/16 21:45 10/15/16 21:44 Glucagon (Glucagon Inj) 1 mg UD PRN SQ 09/15/16 21:45 10/15/16 21:44 Aspirin (Aspirin Chew) 81 mg DAILY PO 09/16/16 09:00 10/16/16 08:59 09/16/16 09:44 81 MG Heparin Sodium (Porcine) 5 ml 5 ml PRN PRN IV 09/16/16 00:15 10/16/16 00:14 Piperacillin Sod/ Tazobactam Sod/ Dextrose (Zosyn Iv/D5 100ml) 120 ml @ 30 mls/hr Q12H IV 09/16/16 05:00 09/23/16 04:59 09/16/16 05:22 30 MLS/HR Epoetin Ever (Procrit Inj) 10,000 units TODAY@1100 IV. 09/16/16 11:00 09/16/16 16:00 Albumin Human 12.5 gm 12.5 gm TODAY@0830 IV 09/16/16 08:30 09/16/16 14:00 Sodium Chloride (Nss 1000ml) 1,000 ml @ 100 mls/hr Q10H IV 09/16/16 08:15 10/16/16 08:14 09/16/16 08:15 100 MLS/HR Albumin Human (Albumin 25%) 12.5 gm BID IV 09/16/16 09:00 09/19/16 08:59 UNV Review of Systems ROS reviewed with family members- patient AMS Constitutional: + fatigue, + weakness, No chills, No fever Eyes: No worsening of vision ENT: + hearing loss (mild), + trouble swallowing (unable to follow instructions to swallow), No sore throat Respiratory: + cough, + shortness of breath, + sputum (white) Cardiovascular: + problem reported (afib), No chest pain Abdomen: No nausea, No pain Musculoskeletal: + problem reported (right ) Genitourinary - Male: + problem reported (very little urine output) Neurologic: + problem reported (confusion, AMS, mumbling) Integumentary: + problem reported (wound of right heel), No itch, No rash Physical Exam Date Time Temp Pulse Resp B/P Pulse Ox O2 Delivery O2 Flow Rate FiO2 09/16/16 04:01 119 17 95/39 96 Room Air 09/16/16 04:00 Room Air 09/16/16 01:54 37.1 109 22 99/58 95 09/16/16 01:30 124 19 85/89 95 09/16/16 00:30 128 28 107/62 94 09/16/16 00:01 36.6 93 25 90/62 98 09/16/16 00:00 102 24 90/62 95 Room Air 09/15/16 23:34 36.8 107 28 108/54 96 09/15/16 23:00 36.6 115 20 90/70 96 Room Air 09/15/16 22:37 78 24 105/68 95 Room Air 09/15/16 21:36 81 22 115/70 94 Room Air 09/15/16 19:25 91 22 104/75 96 Room Air 09/15/16 17:46 93 22 124/47 93 Room Air 09/15/16 17:37 83 09/15/16 16:31 36.3 86 20 110/61 95 Room Air General Appearance: WD/WN, + mild distress, + pertinent finding (AMS) Head: normocephalic, atraumatic Eyes: normal inspection ENT: hearing grossly normal Neck: supple Respiratory/Chest: chest non-tender, no respiratory distress, no accessory muscle use, + pertinent finding (very mild course breath sounds throughout) Cardiovascular: + irregularly irregular Abdomen/GI: normal bowel sounds, soft Back: normal inspection, no CVA tenderness Extremities/Musculoskelatal: no calf tenderness, non-tender, + pertinent finding (right lower extremity with dressing in place) Neurologic/Psych: alert, normal mood/affect Skin: normal color, no rash Lymphatic: no adenopathy Laboratory Results CHEST ONE VIEW PORTABLE CLINICAL HISTORY: Fever. Cough. COMPARISON STUDY: Chest radiograph every 2016. FINDINGS: A right internal jugular [id number], median sternotomy wires, mediastinal surgical clips and prosthetic cardiac valves are noted. There are old right rib fractures. There is no pneumothorax. A small left pleural effusion is present. There is pulmonary vascular congestion. Bibasilar opacities persist. IMPRESSION: 1. Persistent bibasilar opacities which may reflect pneumonia or atelectasis. Radiographic follow up is recommended to ensure resolution. 2. Small left pleural effusion. 3. Pulmonary vascular congestion. Item Value Date Time MRSA DNA Surveillance Screen - Final Complete 09/15/16 2300 Nasal Specimen Negative for MRSA by DNA Probe Blood Culture Received 09/15/16 1757 Blood Pending Blood Culture Received 09/15/16 1724 Blood Pending Last 24 Hours Test 09/15/16 17:24 09/15/16 17:32 09/15/16 17:36 09/15/16 19:56 White Blood Count 8.71 K/uL Red Blood Count 2.66 M/uL Hemoglobin 8.7 g/dL Hematocrit 28.2 % Mean Corpuscular Volume 106.0 fL Mean Corpuscular Hemoglobin 32.7 pg Mean Corpuscular Hemoglobin Concent 30.9 g/dl Platelet Count 224 K/uL Mean Platelet Volume 9.5 fL Neutrophils (%) (Auto) 69.1 % Lymphocytes (%) (Auto) 19.3 % Monocytes (%) (Auto) 9.2 % Eosinophils (%) (Auto) 0.3 % Basophils (%) (Auto) 1.0 % Neutrophils # (Auto) 6.01 K/uL Lymphocytes # (Auto) 1.68 K/uL Monocytes # (Auto) 0.80 K/uL Eosinophils # (Auto) 0.03 K/uL Basophils # (Auto) 0.09 K/uL RDW Standard Deviation 68.8 fL RDW Coefficient of Variation 18.2 % Immature Granulocyte % (Auto) 1.1 % Immature Granulocyte # (Auto) 0.10 K/uL Polychromasia 1+ Anisocytosis PRESENT Macrocytosis PRESENT Prothrombin Time 18.7 SECONDS Prothromb Time International Ratio 1.7 Sodium Level 135 mmol/L Potassium Level 4.8 mmol/L Chloride Level 96 mmol/L Carbon Dioxide Level 23 mmol/L Anion Gap 16.0 mmol/L 23.0 mmol/L Blood Urea Nitrogen 45 mg/dl Creatinine 8.70 mg/dl Estimated GFR () 6.2 Estimated GFR (Non- 5.3 BUN/Creatinine Ratio 5.2 Random Glucose 133 mg/dl Calcium Level 7.2 mg/dl Magnesium Level 1.7 mg/dl Total Bilirubin 0.5 mg/dl Direct Bilirubin 0.1 mg/dl Aspartate Amino Transf (AST/SGOT) 219 U/L Alanine Aminotransferase (ALT/SGPT) 46 U/L Alkaline Phosphatase 116 U/L Total Creatine Kinase 41 U/L Creatine Kinase MB 1.6 ng/ml Creatine Kinase MB Ratio 3.9 Troponin I 0.346 ng/ml Total Protein 6.6 gm/dl Albumin 1.7 gm/dl Bedside Lactic Acid Venous 1.71 mmol/L Bedside Hemoglobin 8.8 g/dl Bedside Hematocrit 26 % Bedside Sodium 134 mEq/L Bedside Potassium 4.9 mEq/L Bedside Chloride 95 mEq/L Bedside Total CO2 21 mEq/l Bedside Blood Urea Nitrogen 39 mg/dl Bedside Creatinine 8.1 mg/dl Bedside Glucose (other) 130 mg/dl Bedside Ionized Calcium (Jun) 0.88 mmol/l Ammonia 28.0 umol/L Test 09/15/16 21:32 09/15/16 23:00 09/15/16 23:33 09/15/16 23:40 Lactic Acid Level 2.0 mmol/L Digoxin Level 0.5 ng/ml Influenza Type A (RT-PCR) Neg for Influ A Influenza Type B (RT-PCR) Neg for Influ B Total Creatine Kinase 50 U/L Creatine Kinase MB 2.7 ng/ml Creatine Kinase MB Ratio 5.4 Troponin I 0.317 ng/ml Bedside Glucose 126 mg/dl Test 09/16/16 05:14 09/16/16 06:27 09/16/16 07:32 09/16/16 09:20 White Blood Count 9.06 K/uL Red Blood Count 2.89 M/uL Hemoglobin 9.3 g/dL Hematocrit 29.9 % Mean Corpuscular Volume 103.5 fL Mean Corpuscular Hemoglobin 32.2 pg Mean Corpuscular Hemoglobin Concent 31.1 g/dl RDW Standard Deviation 71.5 fL RDW Coefficient of Variation 19.5 % Platelet Count 189 K/uL Mean Platelet Volume 9.7 fL Nucleated RBC Absolute Count (auto) 0.04 K/uL Nucleated Red Blood Cells % 0.5 % Prothrombin Time 24.1 SECONDS Prothromb Time International Ratio 2.2 Sodium Level 135 mmol/L Potassium Level 5.1 mmol/L Chloride Level 96 mmol/L Carbon Dioxide Level 22 mmol/L Anion Gap 17.0 mmol/L Blood Urea Nitrogen 49 mg/dl Creatinine 9.00 mg/dl Est Creatinine Clear Calc Drug Dose 7.0 ml/min Estimated GFR () 5.9 Estimated GFR (Non- 5.1 BUN/Creatinine Ratio 5.4 Random Glucose 108 mg/dl Calcium Level 7.1 mg/dl Magnesium Level 1.8 mg/dl Total Creatine Kinase 63 U/L Creatine Kinase MB 2.6 ng/ml Creatine Kinase MB Ratio 4.1 Troponin I 0.314 ng/ml Bedside Glucose 274 mg/dl Random Vancomycin Level 24.8 mcg/ml Assessment & Plan Patient with ESRD on HD, acute AMS, and possible HCAP versus UTI versus acute on chronic CHF with recent history of MSSA bacteremia, endocarditis, and right calcaneal osteomyelitis. He is currently still very confused this morning. He is on IV Zosyn and Vancomycin. MRSA nasal swab was negative. Will D/C Vancomycin but continue Zosyn for now. Slight concern for aspiration pneumonia with weakness/AMS at home. Also, with recent history of endocarditis, recommend repeat TTE. Will also check Procalcitonin and inflammator markers. We will follow. Plan: 1. Continue Zosyn 2. D/C Vancomycin 3. Repeat TTE 4. Procalcitonin, ESR, CRP Note: This document was dictated utilizing [employer] voice recognition software. Minor errors in sack maker may be present. PROVIDER ADDENDUM: Patient examined and reviewed with Ms. Ayala. Agree with above assessment.
[2016-09-16] MEDS ORDERED: EPOETIN ALFA 10,000 UNITS/ML VIAL IV. SCH (11:00)
[2016-09-16 11:03] LABS: MANUAL MICROSCOPIC REQUIRED? YES; URINE APPEARANCE TURBID (CLEAR); URINE COLOR BROWN; URINE NITRITE POS (NEG); URINE PH 6.5 (4.5-7.5); UROBILINOGEN NEG (NEG)
[2016-09-16 11:05] LABS: REVIEW REQ? NO
[2016-09-16 11:06] LABS: URINE BILIRUBIN NEG (NEG)
[2016-09-16 11:12] LABS: URINE BACTERIA 3+ (NEG); URINE MUCUS PRESENT (NONE PRSENT); URINE RBC >30 /hpf (0-4); URINE WBC >30 /hpf (0-5)
[2016-09-16 11:14] LABS: ZZUR CULT IF INDIC CLEAN CATCH NO
[2016-09-16] MEDS: ALBUMIN HUMAN 25% 12.5 GM/50 ML VIAL IV SCH ×2 (11:30→21:39)
--- NOTE | 2016-09-16 13:33 | Progress Note ---
Internal Med Progress Note Date of Service: Sep 16, 2016. Provider Documentation: SUBJECTIVE: Patient is seen and examined at bedside. Currently getting HD. Couldn't obtain any history from patient secondary to AMS. Family at bedside. Has dry cough otherwise seemed to be comfortable. Febrile. OBJECTIVE: Vital Signs-as noted below Physical Exam: General Appearance:Moderately built and nourished, Chronically ill appearing Head: normocephalic, Atraumatic Eyes: normal inspection, EOMI, PERRL Neck: supple, Trachea midline Respiratory/Chest: Normal breath sounds, Mild rales at bases Cardiovascular: Irregularly Irregular, No murmur Abdomen/GI:Soft, Non tender, Bowel sounds present, + PD catheter Extremities/Musculoskelatal:normal inspection, no edema, bilateral great toe amputations. Neurologic/Psych:+AMS, Moves all extremities. Skin: RLE: dressed ulcerations on heel and toes Lab data as noted below. ASSESSMENT & PLAN: ALTERED MENTAL STATUS DD: metabolic encephalopathy: R/O Bacteremia, UTI, secondary to Uremia, Peritonitis, Aspiration, HCAP, Dehydration CT head: No acute findings Ammonia level WNL Continue IV fluids, IV antibiotics Dialysis per Nephrology(Previously on PD now HD) Appreciate ID/Nephrology input Family prefers no aggressive measures Speech:High risk for aspiration ECHO: complete results as below Intraprosthetic valvular regurgitation, small mobile echodensity attached to the bioprosthetic mitral valve leaflet (Unchanged from previous) New Abnormal septal motion, with subtle interval decline in the LVEF Discussed with patient's regarding ECHO findings: Noted no further cardiac evaluation per family Continue ASA, BB, lisinopril Possible HCAP S/P IV vancomycin MRSA screen: Negative Continue IV Zosyn FU cultures ID following 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 Blandon in clinic on day of admission Continue wound care ID following MITRAL VALVE VEGETATION Possible vegetation on TTE last admission H/O bioprosthetic aortic and mitral valve replacements Previously evaluated by cardiology: poor candidate for valve replacement ELEVATED TROPONIN With the background of ESRD H/O CAD EKG appears unchanged Continue Ranexa, ASA, BB ECHO findings as above No aggressive measures per family CHRONIC ANEMIA S/P 1 unit PRBC No active bleeding Monitor Hb HYPOMAGNESEMIA Replace and monitor ATRIAL FIBRILLATION Rate is controlled Digoxin recently d/c due to bradycardia Continue carvedilol INR:2.2 today Continue home dose of Coumadin Monitor INR ESRD ON PD On PD every other evening Now on HD Nephrology on board CHRONIC SYSTOLIC CHF EF 35-40% Appears hypovolemic on exam Hold diuretics for now Gentle IVF HYPERTENSION BP stable Continue current meds Diuretics held DM II Hold Lantus for poor PO intake Insulin sliding scale coverage DVT PROPHYLAXIS Coumadin CODE STATUS DNR/DNI per my discussion with the patient's PROCEDURES: ECHO: * There is a bioprosthetic mitral valve. * Mild mitral valve prosthetic stenosis is present. * Mild mitral valve intraprosthetic valvualar regurgitation is present. * There is a small mobile echodensity attached to the bioprosthetic mitral valve leaflet that is unchanged compared to the prior study dated 08/23/16. * There is no vegetation noted on the aortic valve bioprosthesis wihtin the limitations of this imaging modality. * There is a moderate sized inferior and posterior wall motion abnormality with severe hypokinesis to akinesis of the base and mid segments. * Paradoxical septal motion is consistent with right ventricular volume overload. * Left ventricular systolic function is moderately reduced. * The LV Ejection Fraction = 35-40%. * Compared to the prior studies from 08/18/16 and 08/23/16 abnormal septal motion is now present, with subtle interval decline in the LVEF noted. Vital Signs: Date Time Temp Pulse Resp B/P Pulse Ox O2 Delivery O2 Flow Rate FiO2 09/16/16 16:30 97 21 106/59 94 Nasal Cannula 2.0 09/16/16 16:15 94 Nasal Cannula 2.0 09/16/16 16:00 36.8 99 27 113/62 96 Nasal Cannula 2.0 09/16/16 15:30 78 23 98/59 94 Nasal Cannula 2.0 09/16/16 15:00 107 28 100/55 94 Nasal Cannula 2.0 09/16/16 14:50 37.6 105 112/69 09/16/16 14:30 96 102/64 09/16/16 14:15 93 109/63 09/16/16 14:00 96 103/66 09/16/16 13:45 90 99/57 09/16/16 13:30 95 101/65 09/16/16 13:15 100 106/70 09/16/16 13:00 89 115/69 09/16/16 12:45 93 100/63 09/16/16 12:30 101 106/62 09/16/16 12:15 89 90/55 09/16/16 12:00 92 Nasal Cannula 2.0 09/16/16 12:00 95 96/49 09/16/16 12:00 37.7 83 22 110/62 98 Nasal Cannula 2.0 09/16/16 11:45 88 102/56 09/16/16 11:30 89 91/46 09/16/16 11:20 37.6 95 94/45 09/16/16 08:00 94 Nasal Cannula 2.0 09/16/16 08:00 38.3 110 26 93/57 83 Room Air 09/16/16 04:01 119 17 95/39 96 Room Air 09/16/16 04:00 Room Air 09/16/16 01:54 37.1 109 22 99/58 95 09/16/16 01:30 124 19 85/89 95 09/16/16 00:30 128 28 107/62 94 09/16/16 00:01 36.6 93 25 90/62 98 09/16/16 00:00 102 24 90/62 95 Room Air 09/15/16 23:34 36.8 107 28 108/54 96 09/15/16 23:00 36.6 115 20 90/70 96 Room Air 09/15/16 22:37 78 24 105/68 95 Room Air 09/15/16 21:36 81 22 115/70 94 Room Air 09/15/16 19:25 91 22 104/75 96 Room Air 09/15/16 17:46 93 22 124/47 93 Room Air Lab Results: Results Past 24 Hours Test 09/15/16 19:56 09/15/16 21:32 09/15/16 23:00 09/15/16 23:33 Range/Units Ammonia 28.0 11-32 umol/L Lactic Acid Level 2.0 0.4-2.0 mmol/L Digoxin Level 0.5 0.8-2.0 ng/ml Influenza Type A (RT-PCR) Neg for Influ A NEG Influenza Type B (RT-PCR) Neg for Influ B NEG Total Creatine Kinase 50 39-308 U/L Creatine Kinase MB 2.7 0.5-3.6 ng/ml Creatine Kinase MB Ratio 5.4 0-3.0 Troponin I 0.317 0-0.045 ng/ml Test 09/15/16 23:40 09/16/16 05:14 09/16/16 06:27 09/16/16 07:32 Range/Units Bedside Glucose 126 274 70-99 mg/dl White Blood Count 9.06 4.8-10.8 K/uL Red Blood Count 2.89 4.7-6.1 M/uL Hemoglobin 9.3 14.0-18.0 g/dL Hematocrit 29.9 42-52 % Mean Corpuscular Volume 103.5 80-100 fL Mean Corpuscular Hemoglobin 32.2 25-34 pg Mean Corpuscular Hemoglobin Concent 31.1 32-36 g/dl RDW Standard Deviation 71.5 36.4-46.3 fL RDW Coefficient of Variation 19.5 11.5-14.5 % Platelet Count 189 130-400 K/uL Mean Platelet Volume 9.7 7.4-10.4 fL Nucleated RBC Absolute Count (auto) 0.04 0-0 K/uL Nucleated Red Blood Cells % 0.5 % Erythrocyte Sedimentation Rate 57 0-14 mm/hr Prothrombin Time 24.1 9.0-12.0 SECONDS Prothromb Time International Ratio 2.2 0.9-1.1 Sodium Level 135 136-145 mmol/L Potassium Level 5.1 3.5-5.1 mmol/L Chloride Level 96 98-107 mmol/L Carbon Dioxide Level 22 21-32 mmol/L Anion Gap 17.0 3-11 mmol/L Blood Urea Nitrogen 49 7-18 mg/dl Creatinine 9.00 0.60-1.40 mg/dl Est Creatinine Clear Calc Drug Dose 7.0 ml/min Estimated GFR () 5.9 Estimated GFR (Non- 5.1 BUN/Creatinine Ratio 5.4 10-20 Random Glucose 108 70-99 mg/dl Calcium Level 7.1 8.5-10.1 mg/dl Magnesium Level 1.8 1.8-2.4 mg/dl Total Creatine Kinase 63 39-308 U/L Creatine Kinase MB 2.6 0.5-3.6 ng/ml Creatine Kinase MB Ratio 4.1 0-3.0 Troponin I 0.314 0-0.045 ng/ml Random Vancomycin Level 24.8 mcg/ml Test 09/16/16 09:20 09/16/16 10:20 09/16/16 11:45 09/16/16 12:23 Range/Units C-Reactive Protein 9.94 0-0.29 mg/dl Procalcitonin 0.29 0-0.5 ng/mL Hepatitis B Surface Antigen NEG NEG Hepatitis B Surface Antibody NEG Urine Color BROWN Urine Appearance TURBID CLEAR Urine pH 6.5 4.5-7.5 Urine Specific [place] 1.020 1.000-1.030 Urine Protein 3+ NEG Urine Glucose (UA) TRACE NEG Urine Ketones TRACE NEG Urine Occult Blood 3+ NEG Urine Nitrite POS NEG Urine Bilirubin NEG NEG Urine Urobilinogen NEG NEG Urine Leukocyte Esterase LARGE NEG Urine RBC >30 0-4 /hpf Urine WBC >30 0-5 /hpf Urine Epithelial Cells >30 0-5 /lpf Urine Bacteria 3+ NEG Urine Mucus PRESENT NONE PRSENT Urine Yeast PRESENT NONE PRSENT Bedside Glucose 94 70-99 mg/dl Microbiology Results 09/15/16 Blood Culture, Received Pending 09/15/16 MRSA DNA Surveillance Screen - Final, Complete Specimen Negative for MRSA by DNA Probe 09/16/16 Urine Culture, Received Pending
--- NOTE | 2016-09-16 16:55 | ECHOCARDIOGRAM REPORT ---
*NOTICE TO RECEIVING REPUBLICAN AGENCY This information is strictly Confidential and protected under [place] law. [place] law prohibits you from making any further disclosure of this information unless further disclosure is expressly permitted by the written consent of the person to whom it pertains or is authorized by law. A general authorization for the release of medical or other information is not sufficient for this purpose. Hospital accepts no responsibility if the information is made available to any other person, INCLUDING THE PATIENT. Interpretation Summary * Name: SAM JONES Study Date: 09/16/2016 11:12 AM BP: 93/57 mmHg * [facility] HR: 110 * : 1940 (M/d/yyyy) Gender: Male Height: 69 in * Age: 76 yrs Ethnicity: [place] Weight: 175 lb * Ordering Physician: Melissa Ayala * Performed By: Claribel Hendrix RDCS * * Reason For Study: Endocarditis * BSA: 2.0 m2 * The study was technically difficult. * The study was technically limited. * -- Conclusions -- * There is a bioprosthetic mitral valve. * Mild mitral valve prosthetic stenosis is present. * Mild mitral valve intraprosthetic valvualar regurgitation is present. * There is a small mobile echodensity attached to the bioprosthetic mitral valve leaflet that is unchanged compared to the prior study dated 08/23/16. * There is no vegetation noted on the aortic valve bioprosthesis wihtin the limitations of this imaging modality. * There is a moderate sized inferior and posterior wall motion abnormality with severe hypokinesis to akinesis of the base and mid segments. * Paradoxical septal motion is consistent with right ventricular volume overload. * Left ventricular systolic function is moderately reduced. * The LV Ejection Fraction = 35-40%. * Compared to the prior studies from 08/18/16 and 08/23/16 abnormal septal motion is now present, with subtle interval decline in the LVEF noted. Procedure Details * A complete two-dimensional transthoracic echocardiogram was performed (2D, M-mode, Doppler and color flow Doppler). Left Ventricle * The left ventricle is mildly dilated. * There is normal left ventricular wall thickness. * Left ventricular systolic function is moderately reduced. * Ejection Fraction = 35-40%. * There is a moderate sized inferior and posterior wall motion abnormality with severe hypokinesis to akinesis of the base and mid segments. * Paradoxical septal motion is consistent with right ventricular volume overload. Right Ventricle * The right ventricle is not well visualized. * The right ventricle is mildly dilated. * The right ventricular systolic function is mildly reduced. Atria * The left atrium is severely dilated. * The right atrium is moderately dilated. * There is no evidence of atrial septal defect, but resolution does not allow assessment for a patent foramen ovale. Mitral Valve * There is a bioprosthetic mitral valve. * Mild mitral valve prosthetic stenosis is present. Mild mitrave valve intraprosthetic valvualar regurgitation is present. There is a small mobile echodensity attached to the bioprosthetic mitral valve leaflet. Tricuspid Valve * The tricuspid valve is normal. * There is no tricuspid stenosis. * There is mild tricuspid regurgitation. Aortic Valve * There is no significant aortic regurgitation. * There is a bioprosthetic aortic valve. * The gradient is normal for this prosthetic aortic valve. * There is no vegetation noted on the aortic valve bioprosthesis wihtin the limitations of this imaging modality. Pulmonic Valve * The pulmonary valve is not well seen, but the Doppler examination is normal without significant regurgitation or stenosis. Great Vessels * The aortic root and proximal ascending aorta are normal sized. Pericardium/Pleural * There is no pericardial effusion. Great Vessels * Dilated inferior vena cava with reduced collapsability with sniff indicates an elevated right atrial pressure of 15 mmHg MMode 2D Measurements and Calculations IVSd 0.91 cm LVIDd 5.7 cm LVIDs 4.4 cm LVPWd 0.75 cm IVS/LVPW 1.2 FS 21.5 % EDV(Teich) 157.7 ml ESV(Teich) 89.9 ml EF(Teich) 43.0 % EDV(cubed) 181.7 ml ESV(cubed) 87.9 ml EF(cubed) 51.6 % LV mass(C)d 176.2 grams LV mass(C)dI 90.3 grams/m\S\2 SV(Teich) 67.8 ml SI(Teich) 34.8 ml/m\S\2 SV(cubed) 93.8 ml SI(cubed) 48.1 ml/m\S\2 asc Aorta Diam 3.4 cm Doppler Measurements and Calculations MV E max augustine 155.5 cm/sec MV dec time 0.35 sec Ao V2 max 211.9 cm/sec Ao max PG 18.0 mmHg Ao max PG (full) 15.7 mmHg Ao V2 mean 154.1 cm/sec Ao mean PG 10.7 mmHg Ao V2 VTI 37.5 cm LV V1 max PG 2.3 mmHg LV V1 max 75.3 cm/sec PA V2 max 91.2 cm/sec PA max PG 3.3 mmHg PA acc slope 493.3 cm/sec\S\2 PA acc time 0.11 sec TR max augustine 245.7 cm/sec PA pr(Accel) 29.9 mmHg
[2016-09-16 18:13] LABS: PERIT FL WBC 255 /uL (0-300); PERITONEAL FLUID RBC < 3000 /uL
[2016-09-16] MEDS ORDERED: WARFARIN SOD 2 MG TAB PO ONE (18:45)
[2016-09-16] MEDS ORDERED: NURSING VERBAL MED ORDER ONE ×2 (19:30)
[2016-09-16] MEDS: LISINOPRIL 2.5 MG TAB PO SCH (19:44)
[2016-09-17] VITALS (11 sets, daily range): BP systolic 91–113; BP diastolic 55–68; PULSE 90–113; TEMP 36.3–37.5; O2SAT 90–97
[2016-09-17] MEDS: SODIUM CHLORIDE 0.9% 1000ML 1,000 ML IV SCH ×2 (03:52→15:06)
[2016-09-17] MEDS: PIPERACILL/TAZOBAC IV 4.5 GM in DEXTROSE 5% 100ML IV SCH ×2 (04:42→18:28)
[2016-09-17] MEDS ORDERED: ALBUMIN HUMAN 25% 12.5 GM/50 ML VIAL IV SCH (06:00)
[2016-09-17] MEDS: INSULIN ASPART 100 UNITS/ML 3 ML PEN SC SCH ×5 (06:00→23:47)
[2016-09-17] MEDS ORDERED: NURSING VERBAL MED ORDER ONE ×2 (06:00→20:00)
[2016-09-17] MEDS ORDERED: EPOETIN ALFA 10,000 UNITS/ML VIAL IV. SCH (06:00)
[2016-09-17 06:02] LABS: MEAN CELL VOLUME 103.3 fL (80-100); MEAN CORPUSCULAR HEMOGLOBIN 31.7 pg (25-34); MEAN CORPUSCULAR HGB CONC 30.7 g/dl (32-36); MEAN PLATELET VOLUME 9.7 fL (7.4-10.4); PLATELET COUNT 138 K/uL (130-400); RED BLOOD COUNT 2.71 M/uL (4.7-6.1)
[2016-09-17 06:17] LABS: PROTHROMBIN TIME (PATIENT) 49.6 SECONDS (9.0-12.0)
[2016-09-17 06:26] LABS: INR 4.4 (0.9-1.1)
[2016-09-17 06:27] LABS: ANISOCYTOSIS PRESENT; BASO % 0.5 %; BASO ABS # 0.05 K/uL (0-0.2); COMPLETE YES; DOHLE BODIES 1+; EOS % 0.2 %; IG% 1.5 %; LYMPH % 19.2 %; LYMPH ABS # 2.03 K/uL (1.2-3.4); MONO % 9.8 %; NEUT % 68.8 %; POLYCHROMASIA 1+
--- NOTE | 2016-09-17 06:32 | Nephrology Progress Note ---
Nephrology Progress Note Date of Service: Sep 17, 2016. Subjective 76 yo male with confusion and tachycardia and hypotension requiring albumin and normal saline and antibiotics. pts urine looks infected. pts blood pressures are better this morning. pt is more awake and less confused this morning. Objective Date Time Temp Pulse Resp B/P Pulse Ox O2 Delivery O2 Flow Rate FiO2 09/17/16 04:00 97 Room Air 09/17/16 03:48 37.5 90 24 113/68 97 Room Air 09/17/16 00:02 36.8 101 26 108/57 97 Room Air 09/17/16 00:01 97 Room Air 09/16/16 22:02 37.7 101 20 113/58 95 Room Air 09/16/16 21:40 37.9 111 18 104/52 94 Room Air 09/16/16 20:00 Room Air 09/16/16 19:48 36.4 93 20 114/58 97 Room Air 09/16/16 16:30 97 21 106/59 94 Nasal Cannula 2.0 09/16/16 16:15 94 Nasal Cannula 2.0 09/16/16 16:00 36.8 99 27 113/62 96 Nasal Cannula 2.0 09/16/16 15:30 78 23 98/59 94 Nasal Cannula 2.0 09/16/16 15:00 107 28 100/55 94 Nasal Cannula 2.0 09/16/16 14:50 37.6 105 112/69 09/16/16 14:30 96 102/64 09/16/16 14:15 93 109/63 09/16/16 14:00 96 103/66 09/16/16 13:45 90 99/57 09/16/16 13:30 95 101/65 09/16/16 13:15 100 106/70 09/16/16 13:00 89 115/69 09/16/16 12:45 93 100/63 09/16/16 12:30 101 106/62 09/16/16 12:15 89 90/55 09/16/16 12:00 92 Nasal Cannula 2.0 09/16/16 12:00 95 96/49 09/16/16 12:00 37.7 83 22 110/62 98 Nasal Cannula 2.0 09/16/16 11:45 88 102/56 09/16/16 11:30 89 91/46 09/16/16 11:20 37.6 95 94/45 09/16/16 08:00 94 Nasal Cannula 2.0 09/16/16 08:00 38.3 110 26 93/57 83 Room Air Physical Exam: General-aaox1, confused but more awake Eyes-no scleral icterus ENT-mmm Neck-supple Lungs-decreased at bases Heart-tachy Abdomen-+pd catheter, bs+ Extremities-no c/c/e, right heel covered Neuro-confused Current Inpatient Medications Medications (Trade) Dose Ordered Sig/Andrei Route Start Time Stop Time Status Last Admin Dose Admin Acetaminophen (Tylenol Tab) 650 mg Q4H PRN PO 09/15/16 20:15 10/15/16 20:14 Ondansetron HCl (Zofran Inj) 4 mg Q6H PRN IV 09/15/16 20:15 10/15/16 20:14 Piperacillin Sod/ Tazobactam Sod (Consult) 1 ea UD PRN N/A 09/15/16 22:38 10/15/16 22:37 Calcium Acetate (Phoslo Cap) 667 mg TIDM PO 09/16/16 07:15 10/16/16 07:59 09/16/16 09:28 667 MG Carvedilol (Coreg Tab) 12.5 mg BID PO 09/16/16 09:00 10/16/16 08:59 09/16/16 09:45 12.5 MG Fish Oil (Emmett-3 (Purified Fish Oil) Cap) 1 gm DAILY PO 09/16/16 09:00 10/16/16 08:59 09/16/16 09:46 1 GM Lisinopril (Zestril Tab) 2.5 mg HS PO 09/16/16 21:00 10/16/16 20:59 Meclizine HCl (Antivert Tab) 25 mg TID PRN PO 09/15/16 21:30 10/15/16 21:29 Multivitamins (Multivitamin Tab) 1 tab DAILY PO 09/16/16 09:00 10/16/16 08:59 09/16/16 09:46 1 TAB Nitroglycerin (Nitrostat Tab) 0.4 mg UD PRN SL 09/15/16 21:30 10/15/16 21:29 Calcium Carbonate (oS-Wilian 500 TAB) 500 mg DAILY PO 09/16/16 09:00 10/16/16 08:59 09/16/16 09:46 500 MG Prochlorperazine Maleate (Compazine Tab) 10 mg Q6H PRN PO 09/15/16 21:30 10/15/16 21:29 Cholecalciferol (Vitamin D Tab) 1,000 inter.unit DAILY PO 09/16/16 09:00 10/16/16 08:59 09/16/16 09:45 1,000 INTER.UNIT Citalopram Hydrobromide (celeXA TAB) 20 mg QAM PO 09/16/16 09:00 10/16/16 08:59 09/16/16 09:46 20 MG Pantoprazole Sodium (Protonix Tab) 40 mg QAM PO 09/16/16 09:00 10/16/16 08:59 09/16/16 09:45 40 MG Ranolazine (Ranexa ER Tab) 500 mg BID PO 09/16/16 09:00 10/16/16 08:59 09/16/16 09:46 500 MG Glucose (Glucose 40% Gel) 15-30 GRAMS 15 GRAMS... UD PRN PO 09/15/16 21:45 10/15/16 21:44 Glucose (Glucose Chew Tab) 4-8 Tablets 4 Tabl... UD PRN PO 09/15/16 21:45 10/15/16 21:44 Dextrose (Dextrose 50% 50ML Syringe) 25-50ML OF 50% DW IV FOR... UD PRN IV 09/15/16 21:45 10/15/16 21:44 Glucagon (Glucagon Inj) 1 mg UD PRN SQ 09/15/16 21:45 10/15/16 21:44 Aspirin (Aspirin Chew) 81 mg DAILY PO 09/16/16 09:00 10/16/16 08:59 09/16/16 09:44 81 MG Heparin Sodium (Porcine) 5 ml 5 ml PRN PRN IV 09/16/16 00:15 10/16/16 00:14 Piperacillin Sod/ Tazobactam Sod 4.5 gm/Dextrose 120 ml @ 30 mls/hr Q12H IV 09/16/16 05:00 09/23/16 04:59 09/17/16 04:42 30 MLS/HR Sodium Chloride (Nss 1000ml) 1,000 ml @ 100 mls/hr Q10H IV 09/16/16 08:15 10/16/16 08:14 09/17/16 03:52 100 MLS/HR Albumin Human (Albumin 25%) 12.5 gm BID IV 09/16/16 11:30 09/19/16 08:59 09/16/16 21:39 12.5 GM Warfarin Sodium (Coumadin Tab) 2 mg DAILY@1600 PO 09/17/16 16:00 10/17/16 15:59 Insulin Aspart (novoLOG ASPART) SLIDING SCALE If C... Q6 SC 09/17/16 00:00 10/17/16 00:00 Last 24 Hours Test 09/16/16 07:32 09/16/16 09:20 09/16/16 10:20 09/16/16 11:45 Random Vancomycin Level 24.8 mcg/ml C-Reactive Protein 9.94 mg/dl Procalcitonin 0.29 ng/mL Hepatitis B Surface Antigen NEG Hepatitis B Surface Antibody NEG Urine Color BROWN Urine Appearance TURBID Urine pH 6.5 Urine Specific [place]addock 1.020 Urine Protein 3+ Urine Glucose (UA) TRACE Urine Ketones TRACE Urine Occult Blood 3+ Urine Nitrite POS Urine Bilirubin NEG Urine Urobilinogen NEG Urine Leukocyte Esterase LARGE Urine RBC >30 /hpf Urine WBC >30 /hpf Urine Epithelial Cells >30 /lpf Urine Bacteria 3+ Urine Mucus PRESENT Urine Yeast PRESENT Peritoneal Fluid Color STRAW Peritoneal Fluid Appearance CLEAR Peritoneal Fluid WBC 255 /uL Peritoneal Fluid RBC < 3000 /uL Peritoneal Fld Mononuclear WBCs (%) 74.3 % Peritoneal Fld Polynuclear WBCs (%) 25.7 % Test 09/16/16 12:23 09/16/16 20:04 09/17/16 00:04 09/17/16 05:42 Bedside Glucose 94 mg/dl 85 mg/dl 85 mg/dl White Blood Count 10.60 K/uL Red Blood Count 2.71 M/uL Hemoglobin 8.6 g/dL Hematocrit 28.0 % Mean Corpuscular Volume 103.3 fL Mean Corpuscular Hemoglobin 31.7 pg Mean Corpuscular Hemoglobin Concent 30.7 g/dl Platelet Count 138 K/uL Mean Platelet Volume 9.7 fL Neutrophils (%) (Auto) 68.8 % Lymphocytes (%) (Auto) 19.2 % Monocytes (%) (Auto) 9.8 % Eosinophils (%) (Auto) 0.2 % Basophils (%) (Auto) 0.5 % Neutrophils # (Auto) 7.30 K/uL Lymphocytes # (Auto) 2.03 K/uL Monocytes # (Auto) 1.04 K/uL Eosinophils # (Auto) 0.02 K/uL Basophils # (Auto) 0.05 K/uL RDW Standard Deviation 73.0 fL RDW Coefficient of Variation 20.1 % Immature Granulocyte % (Auto) 1.5 % Immature Granulocyte # (Auto) 0.16 K/uL Nucleated RBC Absolute Count (auto) 0.11 K/uL Nucleated Red Blood Cells % 1.1 % Dohle Bodies 1+ Polychromasia 1+ Anisocytosis PRESENT Prothrombin Time 49.6 SECONDS Prothromb Time International Ratio 4.4 Test 09/17/16 06:05 Bedside Glucose 88 mg/dl Date/Time Source Procedure Growth Status 09/16/16 10:20 Urine , Clean Catch Urine Culture Pending Received Assessment & Plan ESRD-had dialysis yesterday, plan on dialysis agian on monday. Anemia of renal failure-giving procrit with dialysis to help keep hg between 10 to 11. hypotension-on normal saline at 100cc/hr and albumin bid. bp is better but still tachycardic. has some decreased breath sounds at bases, will reduce fluids to 75cc/hr and monitor volume status. blood sugars are stable. pt is an aspiration risk and currently npo.
[2016-09-17 06:47] LABS: BUN/CREATININE RATIO 5.2 (10-20); CALCIUM 6.8 mg/dl (8.5-10.1); CREATININE 6.9 mg/dl (0.60-1.40); POTASSIUM 4.4 mmol/L (3.5-5.1)
[2016-09-17] MEDS: CALCIUM ACETATE 667MG GELCAP PO SCH ×3 (07:30→16:45)
[2016-09-17] MEDS: CARVEDILOL 12.5 MG TAB PO SCH ×2 (08:04→20:33)
[2016-09-17] MEDS: CITALOPRAM 20 MG TAB PO SCH (08:04)
[2016-09-17] MEDS: ASPIRIN 81 MG CHEW PO SCH (08:04)
[2016-09-17] MEDS: MULTIVITAMIN TAB PO SCH (08:05)
[2016-09-17] MEDS: OMEGA-3 (PURIFIED FISH OIL) 1 GM CAP PO SCH (08:05)
[2016-09-17] MEDS: CHOLECALCIFEROL 1000 INTER.UNIT TAB PO SCH (08:05)
[2016-09-17] MEDS: PANTOprazole SOD 40 MG TAB PO SCH (08:05)
[2016-09-17] MEDS: RANOLAZINE 500 MG ER TAB PO SCH ×2 (08:05→20:33)
[2016-09-17] MEDS: CALCIUM CARBONATE 1250MG TAB PO SCH (08:05)
--- NOTE | 2016-09-17 09:00 | Progress Note ---
Internal Med Progress Note Date of Service: Sep 17, 2016. Provider Documentation: SUBJECTIVE: Patient is seen and examined at bedside. More alert, awake, intermittently responds to questions appropriately and follows commands. BP and HR better. No family at bedside. Low grade fever. OBJECTIVE: Vital Signs-as noted below Physical Exam: General Appearance:Moderately built and nourished, Chronically ill appearing Head: normocephalic, Atraumatic Eyes: normal inspection, EOMI, PERRL Neck: supple, Trachea midline Respiratory/Chest: Coarse breath sounds, Mild rales at bases Cardiovascular: Irregularly Irregular, No murmur Abdomen/GI:Soft, Non tender, Bowel sounds present, + PD catheter Extremities/Musculoskelatal:normal inspection, no edema, bilateral great toe amputations. Neurologic/Psych:+AMS, Moves all extremities. Skin: RLE: dressed ulcerations on heel and toes Lab data as noted below. ASSESSMENT & PLAN: ALTERED MENTAL STATUS DD: metabolic encephalopathy: R/O UTI, secondary to Uremia, Peritonitis, Aspiration, HCAP, Dehydration CT head: No acute findings Ammonia level WNL Continue IV fluids, IV antibiotics Blood cultures: No growth to date Urine culture:pending Dialysis per Nephrology(Previously on PD now HD) Appreciate ID/Nephrology input Family prefers no aggressive measures Speech:High risk for aspiration ECHO: complete results as below Intraprosthetic valvular regurgitation, small mobile echodensity attached to the bioprosthetic mitral valve leaflet (Unchanged from previous) New Abnormal septal motion, with subtle interval decline in the LVEF Discussed with patient's regarding ECHO findings: Noted no further cardiac evaluation per family Continue ASA, BB, lisinopril Involved palliative care to identify goals of care Possible HCAP/UTI S/P IV vancomycin MRSA screen: Negative Continue IV Zosyn Urine culture: Agata Albicans Start IV fluconazole Appreciate ID input: Discussed with on 09/17/16 SUPRA THERAPEUTIC INR: INR:4.4 No active bleeding Hold Coumadin Monitor INR 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 Blandon in clinic on day of admission Continue wound care ID following MITRAL VALVE VEGETATION Possible vegetation on TTE last admission H/O bioprosthetic aortic and mitral valve replacements Previously evaluated by cardiology: poor candidate for valve replacement ELEVATED TROPONIN With the background of ESRD H/O CAD EKG appears unchanged Continue Ranexa, ASA, BB ECHO findings as above No aggressive measures per family CHRONIC ANEMIA S/P 1 unit PRBC No active bleeding Monitor Hb Hb:8.6 today HYPOMAGNESEMIA Replace and monitor ATRIAL FIBRILLATION Rate is controlled Digoxin recently d/c due to bradycardia Continue carvedilol Coumadin on hold Monitor INR ESRD ON PD On PD every other evening Now on HD Nephrology on board CHRONIC SYSTOLIC CHF EF 35-40% Appears hypovolemic on exam Hold diuretics for now Gentle IVF per nephrology HYPERTENSION BP stable Continue current meds Diuretics held DM II Hold Lantus for poor PO intake Insulin sliding scale coverage DVT PX INR elevated, Coumadin CODE STATUS DNR/DNI per my discussion with the patient's PROCEDURES: ECHO: * There is a bioprosthetic mitral valve. * Mild mitral valve prosthetic stenosis is present. * Mild mitral valve intraprosthetic valvualar regurgitation is present. * There is a small mobile echodensity attached to the bioprosthetic mitral valve leaflet that is unchanged compared to the prior study dated 08/23/16. * There is no vegetation noted on the aortic valve bioprosthesis wihtin the limitations of this imaging modality. * There is a moderate sized inferior and posterior wall motion abnormality with severe hypokinesis to akinesis of the base and mid segments. * Paradoxical septal motion is consistent with right ventricular volume overload. * Left ventricular systolic function is moderately reduced. * The LV Ejection Fraction = 35-40%. * Compared to the prior studies from 08/18/16 and 08/23/16 abnormal septal motion is now present, with subtle interval decline in the LVEF noted. Vital Signs: Date Time Temp Pulse Resp B/P Pulse Ox O2 Delivery O2 Flow Rate FiO2 09/17/16 11:36 36.8 113 18 113/59 96 09/17/16 10:18 36.3 105 24 91/63 95 Room Air 09/17/16 09:37 36.9 101 23 105/57 93 Room Air 09/17/16 07:00 36.9 102 18 107/56 95 Room Air 09/17/16 04:00 97 Room Air 09/17/16 03:48 37.5 90 24 113/68 97 Room Air 09/17/16 00:02 36.8 101 26 108/57 97 Room Air 09/17/16 00:01 97 Room Air 09/16/16 22:02 37.7 101 20 113/58 95 Room Air 09/16/16 21:40 37.9 111 18 104/52 94 Room Air 09/16/16 20:00 Room Air 09/16/16 19:48 36.4 93 20 114/58 97 Room Air Lab Results: Results Past 24 Hours Test 09/16/16 20:04 09/17/16 00:04 09/17/16 05:42 09/17/16 06:05 Range/Units Bedside Glucose 85 85 88 70-99 mg/dl White Blood Count 10.60 4.8-10.8 K/uL Red Blood Count 2.71 4.7-6.1 M/uL Hemoglobin 8.6 14.0-18.0 g/dL Hematocrit 28.0 42-52 % Mean Corpuscular Volume 103.3 80-100 fL Mean Corpuscular Hemoglobin 31.7 25-34 pg Mean Corpuscular Hemoglobin Concent 30.7 32-36 g/dl Platelet Count 138 130-400 K/uL Mean Platelet Volume 9.7 7.4-10.4 fL Neutrophils (%) (Auto) 68.8 % Lymphocytes (%) (Auto) 19.2 % Monocytes (%) (Auto) 9.8 % Eosinophils (%) (Auto) 0.2 % Basophils (%) (Auto) 0.5 % Neutrophils # (Auto) 7.30 1.4-6.5 K/uL Lymphocytes # (Auto) 2.03 1.2-3.4 K/uL Monocytes # (Auto) 1.04 0.11-0.59 K/uL Eosinophils # (Auto) 0.02 0-0.5 K/uL Basophils # (Auto) 0.05 0-0.2 K/uL RDW Standard Deviation 73.0 36.4-46.3 fL RDW Coefficient of Variation 20.1 11.5-14.5 % Immature Granulocyte % (Auto) 1.5 % Immature Granulocyte # (Auto) 0.16 0.00-0.02 K/uL Nucleated RBC Absolute Count (auto) 0.11 0-0 K/uL Nucleated Red Blood Cells % 1.1 % Dohle Bodies 1+ Polychromasia 1+ Anisocytosis PRESENT Prothrombin Time 49.6 9.0-12.0 SECONDS Prothromb Time International Ratio 4.4 0.9-1.1 Sodium Level 139 136-145 mmol/L Potassium Level 4.4 3.5-5.1 mmol/L Chloride Level 100 98-107 mmol/L Carbon Dioxide Level 23 21-32 mmol/L Anion Gap 16.0 3-11 mmol/L Blood Urea Nitrogen 36 7-18 mg/dl Creatinine 6.90 0.60-1.40 mg/dl Est Creatinine Clear Calc Drug Dose 9.1 ml/min Estimated GFR () 8.2 Estimated GFR (Non- 7.0 BUN/Creatinine Ratio 5.2 10-20 Random Glucose 85 70-99 mg/dl Calcium Level 6.8 8.5-10.1 mg/dl Test 09/17/16 11:11 Range/Units Bedside Glucose 105 70-99 mg/dl
[2016-09-17] MEDS: ALBUMIN HUMAN 25% 12.5 GM/50 ML VIAL IV SCH ×2 (09:33→23:07)
[2016-09-17] MEDS ORDERED: WARFARIN SOD 2 MG TAB PO SCH (16:00)
[2016-09-17] MEDS ORDERED: LIDODERM (LIDOCAINE) PATCH 5% TD SCH (18:00)
[2016-09-17] MEDS ORDERED: FENTANYL 12 MCG/HR TDSY TD SCH (18:00)
[2016-09-17] MEDS: LISINOPRIL 2.5 MG TAB PO SCH (20:33)
[2016-09-17] MEDS: FLUCONAZOLE / NSS 100 MG in PREMIXED NSS 50 ML IV SCH (22:16)
[2016-09-17] MEDS ORDERED: LEVALBUTEROL/IPRATROPIUM NEB INH STA (22:33)
[2016-09-17] MEDS ORDERED: LEVALBUTEROL/IPRATROPIUM NEB INH PRN (22:45)
--- NOTE | 2016-09-17 22:57 | DIAGNOSTIC IMAGING REPORT ---
CHEST ONE VIEW PORTABLE CLINICAL HISTORY: Shortness of breath. Altered mental status. COMPARISON STUDY: Chest radiograph September 15, 2016. FINDINGS: A right internal jugular [id number], median sternotomy wires, prosthetic cardiac valves and mediastinal surgical clips are noted. Cardiomegaly is unchanged. There is no pneumothorax. A small left pleural effusion is noted. Bibasilar opacities persist. There is diffuse interstitial thickening. Old bilateral rib fractures are noted. IMPRESSION: 1. No significant change in diffuse interstitial thickening and bilateral opacities. The findings could reflect pneumonia or pulmonary edema. Clinical and radiographic follow up is recommended. 2. Small left pleural effusion. Electronically signed by: Ahsan Choi M.D. 09/17/2016 10:55 PM Dictated Date/Time: 09/17/2016 10:54 PM
[2016-09-17] MEDS ORDERED: LEVALBUTEROL 1.25MG/0.5ML NEB INH STA (23:01)
[2016-09-17] MEDS ORDERED: IPRATROPIUM BROMIDE NEB SOLN 0.02% 2.5 ML VIAL INH STA (23:01)
[2016-09-17] MEDS ORDERED: LEVALBUTEROL 1.25MG/0.5ML NEB INH PRN (23:15)
[2016-09-17] MEDS ORDERED: IPRATROPIUM BROMIDE NEB SOLN 0.02% 2.5 ML VIAL INH PRN (23:15)
[2016-09-17] MEDS: CHECK FENTANYL PATCH PLACEMENT SCH (23:49)
[2016-09-18] VITALS (12 sets, daily range): BP systolic 98–112; BP diastolic 45–65; PULSE 84–107; TEMP 36.5–36.9; O2SAT 93–99
[2016-09-18] MEDS: PIPERACILL/TAZOBAC IV 4.5 GM in DEXTROSE 5% 100ML IV SCH ×2 (05:14→17:47)
[2016-09-18] MEDS: INSULIN ASPART 100 UNITS/ML 3 ML PEN SC SCH ×3 (06:00→18:00)
[2016-09-18 07:14] LABS: HEMATOCRIT 28.8 % (42-52)
[2016-09-18] MEDS: CALCIUM ACETATE 667MG GELCAP PO SCH ×3 (07:30→16:45)
[2016-09-18 07:41] LABS: PROTHROMBIN TIME (PATIENT) 83.2 SECONDS (9.0-12.0)
[2016-09-18 07:51] LABS: INR 7.2 (0.9-1.1)
[2016-09-18] MEDS: CITALOPRAM 20 MG TAB PO SCH (07:55)
[2016-09-18] MEDS: ASPIRIN 81 MG CHEW PO SCH (07:55)
[2016-09-18] MEDS: CARVEDILOL 12.5 MG TAB PO SCH ×2 (07:56→20:54)
[2016-09-18] MEDS: MULTIVITAMIN TAB PO SCH (07:56)
[2016-09-18] MEDS: CALCIUM CARBONATE 1250MG TAB PO SCH (07:57)
[2016-09-18] MEDS: RANOLAZINE 500 MG ER TAB PO SCH ×2 (07:57→20:54)
[2016-09-18] MEDS: PANTOprazole SOD 40 MG TAB PO SCH (07:57)
[2016-09-18] MEDS: CHOLECALCIFEROL 1000 INTER.UNIT TAB PO SCH (07:57)
[2016-09-18] MEDS: OMEGA-3 (PURIFIED FISH OIL) 1 GM CAP PO SCH (07:57)
[2016-09-18] MEDS: CHECK FENTANYL PATCH PLACEMENT SCH ×3 (08:00→23:57)
--- NOTE | 2016-09-18 08:35 | Progress Note ---
Internal Med Progress Note Date of Service: Sep 18, 2016. Provider Documentation: SUBJECTIVE: Patient is seen and examined at bedside. Intermittently confused per staff and family. Alert, awake. Seemed to have his back pain under control. Discussed in detail with family about patient's condition. Tachycardic secondary to PO meds on hold. OBJECTIVE: Vital Signs-as noted below Physical Exam: General Appearance:Moderately built and nourished, Chronically ill appearing Head: normocephalic, Atraumatic Eyes: normal inspection, EOMI, PERRL Neck: supple, Trachea midline Respiratory/Chest: Coarse breath sounds, Mild rales at bases Cardiovascular: Irregularly Irregular, + Tachycardia, No murmur Abdomen/GI:Soft, Non tender, Bowel sounds present, + PD catheter Extremities/Musculoskelatal:normal inspection, no edema, bilateral great toe amputations. Neurologic/Psych:+AMS, Moves all extremities. Skin: RLE: dressed ulcerations on heel and toes Lab data as noted below. ASSESSMENT & PLAN: ALTERED MENTAL STATUS DD: metabolic encephalopathy: R/O UTI, secondary to Uremia, Peritonitis, Aspiration, HCAP, Dehydration CT head: No acute findings Ammonia level WNL Continue IV antibiotics IV fluids/Albumin per Nephrology Blood cultures: No growth to date Urine culture:Agata Albicans: Continue IV fluconazole Dialysis per Nephrology(Previously on PD now HD) Appreciate ID/Nephrology input Family prefers no aggressive measures Speech:High risk for aspiration ECHO: complete results as below Intraprosthetic valvular regurgitation, small mobile echodensity attached to the bioprosthetic mitral valve leaflet (Unchanged from previous) New Abnormal septal motion, with subtle interval decline in the LVEF Discussed with patient's /Family: Noted no further cardiac evaluation per family Oral meds on hold: ASA, BB, lisinopril secondary to NPO Start IV lopressor 5mg Q6H to avoid BB withdrawal and better HR control Involved palliative care to identify goals of care:pending Possible HCAP UTI S/P IV vancomycin, discontinued:MRSA screen is negative MRSA screen: Negative Continue IV Zosyn Urine culture: Agata Albicans Continue IV fluconazole Appreciate ID input: Discussed with on 09/17/16 SUPRA THERAPEUTIC INR: INR:7.2 No active bleeding Hold Coumadin Monitor INR 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 Blandon in clinic on day of admission Continue wound care ID following MITRAL VALVE VEGETATION Possible vegetation on TTE last admission H/O bioprosthetic aortic and mitral valve replacements Previously evaluated by cardiology: poor candidate for valve replacement ELEVATED TROPONIN In the setting of ESRD on HD H/O CAD EKG appears unchanged Continue Ranexa, ASA, BB ECHO findings as above No aggressive measures per family CHRONIC ANEMIA S/P 1 unit PRBC No active bleeding Monitor Hb Hb:8.8 today HYPOMAGNESEMIA Replace and monitor ATRIAL FIBRILLATION Rate is controlled Digoxin recently d/c due to bradycardia Continue carvedilol Coumadin on hold secondary to elevated INR ESRD ON PD On PD every other evening Now on HD Nephrology on board CHRONIC SYSTOLIC CHF EF 35-40% Appears hypovolemic on exam Hold diuretics for now IVF on hold: per nephrology HYPERTENSION BP stable Continue current meds Diuretics held DM II Hold Lantus for poor PO intake Insulin sliding scale coverage Hypoglycemia protocol Nutrition consulted Dysphagia: High risk for aspiration Speech therapy following Varnish Remover consulted DVT PX INR elevated, Coumadin on hold CODE STATUS DNR/DNI per my discussion with the patient's PROCEDURES: ECHO: * There is a bioprosthetic mitral valve. * Mild mitral valve prosthetic stenosis is present. * Mild mitral valve intraprosthetic valvualar regurgitation is present. * There is a small mobile echodensity attached to the bioprosthetic mitral valve leaflet that is unchanged compared to the prior study dated 08/23/16. * There is no vegetation noted on the aortic valve bioprosthesis wihtin the limitations of this imaging modality. * There is a moderate sized inferior and posterior wall motion abnormality with severe hypokinesis to akinesis of the base and mid segments. * Paradoxical septal motion is consistent with right ventricular volume overload. * Left ventricular systolic function is moderately reduced. * The LV Ejection Fraction = 35-40%. * Compared to the prior studies from 08/18/16 and 08/23/16 abnormal septal motion is now present, with subtle interval decline in the LVEF noted. Vital Signs: Date Time Temp Pulse Resp B/P Pulse Ox O2 Delivery O2 Flow Rate FiO2 09/18/16 08:42 36.9 107 18 103/53 93 09/18/16 04:00 93 Room Air 09/18/16 03:51 36.7 102 22 104/62 95 Room Air 09/18/16 01:48 84 18 94 Room Air 09/18/16 00:00 36.8 104 22 102/65 95 Room Air 09/17/16 23:59 93 Room Air 09/17/16 20:00 92 Room Air 09/17/16 19:40 36.6 103 30 94/55 90 09/17/16 16:00 Room Air 09/17/16 12:00 Room Air 09/17/16 11:36 36.8 113 18 113/59 96 09/17/16 10:18 36.3 105 24 91/63 95 Room Air 09/17/16 09:37 36.9 101 23 105/57 93 Room Air Lab Results: Results Past 24 Hours Test 09/17/16 11:11 09/17/16 18:50 09/17/16 23:38 09/18/16 06:04 Range/Units Bedside Glucose 105 94 82 84 70-99 mg/dl Test 09/18/16 06:22 Range/Units Hemoglobin 8.8 14.0-18.0 g/dL Hematocrit 28.8 42-52 % Prothrombin Time 83.2 9.0-12.0 SECONDS Prothromb Time International Ratio 7.2 0.9-1.1
[2016-09-18] MEDS ORDERED: TPN/PPN CONSULT PHARMACY PRN (09:30)
[2016-09-18] MEDS: ALBUMIN HUMAN 25% 12.5 GM/50 ML VIAL IV SCH ×2 (09:52→22:20)
--- NOTE | 2016-09-18 11:07 | Nephrology Progress Note ---
Nephrology Progress Note Date of Service: Sep 18, 2016. Subjective 76 yo male with confusion and tachycardia and hypotension who has marquita uti, negative blood cultures. continues to be confused but overall more awake. family at bedside. pt and family want him to be dnr/dni. they were concerned about his nutritional status but do not want him to have a peg tube or ng tube. Objective Date Time Temp Pulse Resp B/P Pulse Ox O2 Delivery O2 Flow Rate FiO2 09/18/16 10:28 106 103/48 98 Room Air 09/18/16 10:07 36.5 107 17 112/59 99 Room Air 09/18/16 08:42 36.9 107 18 103/53 93 09/18/16 04:00 93 Room Air 09/18/16 03:51 36.7 102 22 104/62 95 Room Air 09/18/16 01:48 84 18 94 Room Air 09/18/16 00:00 36.8 104 22 102/65 95 Room Air 09/17/16 23:59 93 Room Air 09/17/16 20:00 92 Room Air 09/17/16 19:40 36.6 103 30 94/55 90 09/17/16 16:00 Room Air 09/17/16 12:00 Room Air 09/17/16 11:36 36.8 113 18 113/59 96 Physical Exam: General-aaox2, more awake with underlying confusion Eyes-no scleral icterus ENT-mmm Neck-supple Lungs-basilar rales Heart-tachy Abdomen-+pd catheter, bs+ Extremities-no c/c/e, right heel covered Neuro-confused Current Inpatient Medications Medications (Trade) Dose Ordered Sig/Andrei Route Start Time Stop Time Status Last Admin Dose Admin Acetaminophen (Tylenol Tab) 650 mg Q4H PRN PO 09/15/16 20:15 10/15/16 20:14 09/17/16 16:44 650 MG Ondansetron HCl (Zofran Inj) 4 mg Q6H PRN IV 09/15/16 20:15 10/15/16 20:14 Piperacillin Sod/ Tazobactam Sod (Consult) 1 ea UD PRN N/A 09/15/16 22:38 10/15/16 22:37 Calcium Acetate (Phoslo Cap) 667 mg TIDM PO 09/16/16 07:15 10/16/16 07:59 09/16/16 09:28 667 MG Carvedilol (Coreg Tab) 12.5 mg BID PO 09/16/16 09:00 10/16/16 08:59 09/16/16 09:45 12.5 MG Fish Oil ([place]-3 (Purified Fish Oil) Cap) 1 gm DAILY PO 09/16/16 09:00 10/16/16 08:59 09/16/16 09:46 1 GM Lisinopril (Zestril Tab) 2.5 mg HS PO 09/16/16 21:00 10/16/16 20:59 Meclizine HCl (Antivert Tab) 25 mg TID PRN PO 09/15/16 21:30 10/15/16 21:29 Multivitamins (Multivitamin Tab) 1 tab DAILY PO 09/16/16 09:00 10/16/16 08:59 09/16/16 09:46 1 TAB Nitroglycerin (Nitrostat Tab) 0.4 mg UD PRN SL 09/15/16 21:30 10/15/16 21:29 Calcium Carbonate (oS-Wilian 500 TAB) 500 mg DAILY PO 09/16/16 09:00 10/16/16 08:59 09/16/16 09:46 500 MG Prochlorperazine Maleate (Compazine Tab) 10 mg Q6H PRN PO 09/15/16 21:30 10/15/16 21:29 Cholecalciferol (Vitamin D Tab) 1,000 inter.unit DAILY PO 09/16/16 09:00 10/16/16 08:59 09/16/16 09:45 1,000 INTER.UNIT Citalopram Hydrobromide (celeXA TAB) 20 mg QAM PO 09/16/16 09:00 10/16/16 08:59 09/16/16 09:46 20 MG Pantoprazole Sodium (Protonix Tab) 40 mg QAM PO 09/16/16 09:00 10/16/16 08:59 09/16/16 09:45 40 MG Ranolazine (Ranexa ER Tab) 500 mg BID PO 09/16/16 09:00 10/16/16 08:59 09/16/16 09:46 500 MG Glucose (Glucose 40% Gel) 15-30 GRAMS 15 GRAMS... UD PRN PO 09/15/16 21:45 10/15/16 21:44 Glucose (Glucose Chew Tab) 4-8 Tablets 4 Tabl... UD PRN PO 09/15/16 21:45 10/15/16 21:44 Dextrose (Dextrose 50% 50ML Syringe) 25-50ML OF 50% DW IV FOR... UD PRN IV 09/15/16 21:45 10/15/16 21:44 Glucagon (Glucagon Inj) 1 mg UD PRN SQ 09/15/16 21:45 10/15/16 21:44 Aspirin (Aspirin Chew) 81 mg DAILY PO 09/16/16 09:00 10/16/16 08:59 09/16/16 09:44 81 MG Heparin Sodium (Porcine) 5 ml 5 ml PRN PRN IV 09/16/16 00:15 10/16/16 00:14 Piperacillin Sod/ Tazobactam Sod 4.5 gm/Dextrose 120 ml @ 30 mls/hr Q12H IV 09/16/16 05:00 09/23/16 04:59 09/18/16 05:14 30 MLS/HR Sodium Chloride (Nss 1000ml) 1,000 ml @ 75 mls/hr [id number] IV 09/16/16 08:15 10/16/16 08:14 Future Hold 09/17/16 15:06 75 MLS/HR Albumin Human (Albumin 25%) 12.5 gm BID IV 09/16/16 11:30 09/19/16 08:59 09/18/16 09:52 12.5 GM Insulin Aspart (novoLOG ASPART) SLIDING SCALE If C... Q6 SC 09/17/16 00:00 10/17/16 00:00 Fentanyl (Duragesic Patch) 12 mcg Q72H TD 09/17/16 18:00 10/01/16 17:59 09/17/16 18:23 12 MCG Miscellaneous (Fentanyl Patch Remove & Waste) 1 ea Q3D@1759 N/A 09/20/16 17:59 10/20/16 17:58 Miscellaneous Information 1 ea 1 ea QS N/A 09/18/16 00:00 10/18/16 00:00 09/18/16 08:00 1 EA Fluconazole/ Sodium Chloride/ Prmx (Diflucan IV/ Premixed Nss) 50 ml @ 100 mls/hr DAILY@2000 IV 09/17/16 20:00 09/27/16 19:59 09/17/16 22:16 100 MLS/HR Ipratropium [place] (Atrovent 0.02% 0.5MG/2.5ML Neb) 0.5 mg Q4H PRN INH 09/17/16 23:15 10/17/16 23:14 09/18/16 02:47 0.5 MG Levalbuterol (Xopenex 1.25MG/ 0.5ML Neb) 1.25 mg Q4H PRN INH 09/17/16 23:15 10/17/16 23:14 09/18/16 02:47 1.25 MG Metoprolol Tartrate (Lopressor Iv) 5 mg Q6 IV. 09/18/16 12:00 10/18/16 11:59 Miscellaneous Information (Pharmacy Tpn/ Ppn Consult Active) 1 ea UD PRN N/A 09/18/16 09:30 10/18/16 09:29 Last 24 Hours Test 09/17/16 11:11 09/17/16 18:50 09/17/16 23:38 09/18/16 06:04 Bedside Glucose 105 mg/dl 94 mg/dl 82 mg/dl 84 mg/dl Test 09/18/16 06:22 Hemoglobin 8.8 g/dL Hematocrit 28.8 % Prothrombin Time 83.2 SECONDS Prothromb Time International Ratio 7.2 Assessment & Plan ESRD-for dialysis again on monday. holding off on doing pd with poor nutritional stores. will continue hemodialysis while inpatient. no fluid removal on dialysis. Anemia of renal failure-giving procrit with dialysis to help keep hg between 10 to 11. hypotension-agree with stopping the fluids. pulse is better in the 90s to low 100s, bp is improved. continue the iv albumin to help with intravascular volume. nutrition-pt with low albumin stores. high aspiration risk. hoping as mental status improves that swallowing may also improve. no peg and no tube feeds. would like to hold off on tpn or ppn given risks and monitor mental status and swallowing status this week. overall, pt has gone through a lot these past several months. pt and family would like to continue for now, however would like him to be dnr/dni. they may eventually decide for hospice but are not ready for that yet. even if he does clinically improve, still is overall very weak and may be better doing hemodialysis for now till nutritional stores improve. for now, no iv fluids, no tpn or ppn,. plan for dialysis tomorrow for clearance of toxins, no fluid removal.
[2016-09-18] MEDS: METOPROLOL TARTRATE 1 MG/ML VIAL IV. SCH ×3 (12:20→23:57)
[2016-09-18] MEDS: LISINOPRIL 2.5 MG TAB PO SCH (20:54)
[2016-09-18] MEDS: FLUCONAZOLE / NSS 100 MG in PREMIXED NSS 50 ML IV SCH (21:41)
[2016-09-19 04:00] VITALS: BP 72/45; PULSE 96; TEMP 36.2; O2SAT 95; O2SAT 98
[2016-09-19] MEDS ORDERED: NURSING VERBAL MED ORDER ONE ×4 (05:30→10:30)
[2016-09-19] MEDS ORDERED: SODIUM CHLORIDE 0.9% 500ML 500 ML IV ONE (05:45)
[2016-09-19] MEDS: INSULIN ASPART 100 UNITS/ML 3 ML PEN SC SCH ×3 (06:00→12:00)
[2016-09-19] MEDS: METOPROLOL TARTRATE 1 MG/ML VIAL IV. SCH (06:00)
[2016-09-19] MEDS: DEXTROSE 50% 50 ML SYR IV PRN ×2 (06:28→06:49)
[2016-09-19] MEDS: PIPERACILL/TAZOBAC IV 4.5 GM in DEXTROSE 5% 100ML IV SCH (06:35)
[2016-09-19 06:40] VITALS: BP 68/38
[2016-09-19] MEDS ORDERED: D5W AND NSS 1,000 ML IV SCH (07:00)
[2016-09-19 07:12] VITALS: BP 67/45
[2016-09-19 07:28] LABS: PROTHROMBIN TIME (PATIENT) > 100.0 SECONDS (9.0-12.0)
[2016-09-19 07:30] LABS: INR > 8.0 (0.9-1.1)
[2016-09-19] MEDS: CALCIUM ACETATE 667MG GELCAP PO SCH (07:30)
[2016-09-19 07:53] LABS: BUN/CREATININE RATIO 6.4 (10-20); CALCIUM 7.4 mg/dl (8.5-10.1); POTASSIUM 5.4 mmol/L (3.5-5.1)
--- NOTE | 2016-09-19 07:54 | Nephrology Progress Note ---
Nephrology Progress Note Date of Service: Sep 19, 2016. Subjective 76 yo male with confusion and tachycardia and hypotension who has marquita uti, negative blood cultures. patient is more confused this morning and bp is lower. currently getting iv fluids to try to raise the blood pressure. called the family and updated them. they are coming in now. pt is level 5 Objective Date Time Temp Pulse Resp B/P Pulse Ox O2 Delivery O2 Flow Rate FiO2 09/19/16 07:12 67/45 09/19/16 06:40 68/38 09/19/16 04:00 36.2 96 19 72/45 98 Room Air 09/19/16 04:00 95 Room Air 09/18/16 23:59 95 Room Air 09/18/16 23:57 106/60 09/18/16 23:53 36.5 89 20 106/60 97 Room Air 09/18/16 20:00 95 Room Air 09/18/16 18:00 92 98/45 09/18/16 16:34 36.8 92 16 98/45 95 Room Air 09/18/16 16:05 Room Air 09/18/16 12:20 107 103/48 09/18/16 12:11 36.8 107 18 103/48 95 09/18/16 12:05 Room Air 09/18/16 10:28 106 103/48 98 Room Air 09/18/16 10:07 36.5 107 17 112/59 99 Room Air 09/18/16 08:42 36.9 107 18 103/53 93 09/18/16 08:00 Room Air Physical Exam: General-aaox1, more confused and lethargic Eyes-no scleral icterus ENT-mmm Neck-supple Lungs-coarse Heart-regular Abdomen-+pd catheter, bs+ Extremities-no c/c/e, right heel covered Neuro-confused Current Inpatient Medications Medications (Trade) Dose Ordered Sig/Andrei Route Start Time Stop Time Status Last Admin Dose Admin Acetaminophen (Tylenol Tab) 650 mg Q4H PRN PO 09/15/16 20:15 10/15/16 20:14 09/17/16 16:44 650 MG Ondansetron HCl (Zofran Inj) 4 mg Q6H PRN IV 09/15/16 20:15 10/15/16 20:14 Piperacillin Sod/ Tazobactam Sod (Consult) 1 ea UD PRN N/A 09/15/16 22:38 10/15/16 22:37 Calcium Acetate (Phoslo Cap) 667 mg TIDM PO 09/16/16 07:15 10/16/16 07:59 09/16/16 09:28 667 MG Carvedilol (Coreg Tab) 12.5 mg BID PO 09/16/16 09:00 10/16/16 08:59 09/16/16 09:45 12.5 MG Fish Oil ([place]-3 (Purified Fish Oil) Cap) 1 gm DAILY PO 09/16/16 09:00 10/16/16 08:59 09/16/16 09:46 1 GM Lisinopril (Zestril Tab) 2.5 mg HS PO 09/16/16 21:00 10/16/16 20:59 Meclizine HCl (Antivert Tab) 25 mg TID PRN PO 09/15/16 21:30 10/15/16 21:29 Multivitamins (Multivitamin Tab) 1 tab DAILY PO 09/16/16 09:00 10/16/16 08:59 09/16/16 09:46 1 TAB Nitroglycerin (Nitrostat Tab) 0.4 mg UD PRN SL 09/15/16 21:30 10/15/16 21:29 Calcium Carbonate (oS-Wilian 500 TAB) 500 mg DAILY PO 09/16/16 09:00 10/16/16 08:59 09/16/16 09:46 500 MG Prochlorperazine Maleate (Compazine Tab) 10 mg Q6H PRN PO 09/15/16 21:30 10/15/16 21:29 Cholecalciferol (Vitamin D Tab) 1,000 inter.unit DAILY PO 09/16/16 09:00 10/16/16 08:59 09/16/16 09:45 1,000 INTER.UNIT Citalopram Hydrobromide (celeXA TAB) 20 mg QAM PO 09/16/16 09:00 10/16/16 08:59 09/16/16 09:46 20 MG Pantoprazole Sodium (Protonix Tab) 40 mg QAM PO 09/16/16 09:00 10/16/16 08:59 09/16/16 09:45 40 MG Ranolazine (Ranexa ER Tab) 500 mg BID PO 09/16/16 09:00 10/16/16 08:59 09/16/16 09:46 500 MG Glucose (Glucose 40% Gel) 15-30 GRAMS 15 GRAMS... UD PRN PO 09/15/16 21:45 10/15/16 21:44 Glucose (Glucose Chew Tab) 4-8 Tablets 4 Tabl... UD PRN PO 09/15/16 21:45 10/15/16 21:44 Dextrose (Dextrose 50% 50ML Syringe) 25-50ML OF 50% DW IV FOR... UD PRN IV 09/15/16 21:45 10/15/16 21:44 09/19/16 06:49 25 ML Glucagon (Glucagon Inj) 1 mg UD PRN SQ 09/15/16 21:45 10/15/16 21:44 Aspirin (Aspirin Chew) 81 mg DAILY PO 09/16/16 09:00 10/16/16 08:59 09/16/16 09:44 81 MG Heparin Sodium (Porcine) 5 ml 5 ml PRN PRN IV 09/16/16 00:15 10/16/16 00:14 Piperacillin Sod/ Tazobactam Sod 4.5 gm/Dextrose 120 ml @ 30 mls/hr Q12H IV 09/16/16 05:00 09/23/16 04:59 09/19/16 06:35 30 MLS/HR Sodium Chloride (Nss 1000ml) 1,000 ml @ 75 mls/hr [id number] IV 09/16/16 08:15 10/16/16 08:14 Future Hold 09/17/16 15:06 75 MLS/HR Albumin Human (Albumin 25%) 12.5 gm BID IV 09/16/16 11:30 09/19/16 08:59 09/18/16 22:20 12.5 GM Insulin Aspart (novoLOG ASPART) SLIDING SCALE If C... Q6 SC 09/17/16 00:00 10/17/16 00:00 Fentanyl (Duragesic Patch) 12 mcg Q72H TD 09/17/16 18:00 10/01/16 17:59 09/17/16 18:23 12 MCG Miscellaneous (Fentanyl Patch Remove & Waste) 1 ea Q3D@1759 N/A 09/20/16 17:59 5/4/17 17:58 Miscellaneous Information 1 ea 1 ea QS N/A 09/18/16 00:00 10/18/16 00:00 09/18/16 23:57 1 EA Fluconazole/ Sodium Chloride/ Prmx (Diflucan IV/ Premixed Nss) 50 ml @ 100 mls/hr DAILY@2000 IV 09/17/16 20:00 09/27/16 19:59 09/18/16 21:41 100 MLS/HR Ipratropium [place] (Atrovent 0.02% 0.5MG/2.5ML Neb) 0.5 mg Q4H PRN INH 09/17/16 23:15 10/17/16 23:14 09/18/16 02:47 0.5 MG Levalbuterol (Xopenex 1.25MG/ 0.5ML Neb) 1.25 mg Q4H PRN INH 09/17/16 23:15 10/17/16 23:14 09/18/16 02:47 1.25 MG Metoprolol Tartrate (Lopressor Iv) 5 mg Q6 IV. 09/18/16 12:00 10/18/16 11:59 09/18/16 12:20 5 MG Miscellaneous Information (Pharmacy Tpn/ Ppn Consult Active) 1 ea UD PRN N/A 09/18/16 09:30 10/18/16 09:29 Future hold Last 24 Hours Test 09/18/16 12:04 09/18/16 17:46 09/18/16 23:58 09/19/16 06:12 Bedside Glucose 83 mg/dl 74 mg/dl 70 mg/dl Hemoglobin 9.4 g/dL Hematocrit 31.0 % Prothrombin Time > 100.0 SECONDS Prothromb Time International Ratio > 8.0 Test 09/19/16 06:22 09/19/16 06:44 09/19/16 07:08 Bedside Glucose 50 mg/dl 62 mg/dl 131 mg/dl Assessment & Plan ESRD-no dialysis today. pt is more lethargic and bp is lower. giving one liter fluid bolus. called family and updated them. overall poor prognosis. if does not respond to iv fluids, would recommend hospice at this time.
[2016-09-19 08:00] VITALS: O2SAT 96
[2016-09-19] MEDS: CHECK FENTANYL PATCH PLACEMENT SCH (08:00)
[2016-09-19 08:04] VITALS: BP 69/42; PULSE 80; TEMP 36.8; O2SAT 93
--- NOTE | 2016-09-19 08:12 | Progress Note ---
Internal Med Progress Note Date of Service: Sep 19, 2016. Provider Documentation: SUBJECTIVE: Patient is seen and examined at bedside. Hypotensive this morning. Very lethargic and confused. Currently getting IV bolus. No plan for dialysis today. Hypoglycemic, hyperkalemia this morning. Overall very poor prognosis. OBJECTIVE: Vital Signs-as noted below Physical Exam: General Appearance:Moderately built and nourished, Chronically ill appearing Head: normocephalic, Atraumatic Eyes: normal inspection, EOMI, PERRL Neck: supple, Trachea midline Respiratory/Chest: Coarse breath sounds, Mild rales at bases Cardiovascular: Irregularly Irregular, No murmur Abdomen/GI:Soft, Non tender, Bowel sounds present, + PD catheter Extremities/Musculoskelatal:normal inspection, no edema, bilateral great toe amputations. Neurologic/Psych:+AMS, Moves all extremities. Skin: RLE: dressed ulcerations on heel and toes Lab data as noted below. ASSESSMENT & PLAN: ALTERED MENTAL STATUS DD: metabolic encephalopathy: Likely UTI, secondary to Uremia, Aspiration HCAP , Dehydration CT head: No acute findings Ammonia level WNL Continue IV antibiotics IV fluids/Albumin per Nephrology Blood cultures: No growth to date Urine culture:Agata Albicans: Continue IV fluconazole Dialysis per Nephrology(Previously on PD now HD) Appreciate ID/Nephrology input Family prefers no aggressive measures Speech:High risk for aspiration ECHO: complete results as below Intraprosthetic valvular regurgitation, small mobile echodensity attached to the bioprosthetic mitral valve leaflet (Unchanged from previous) New Abnormal septal motion, with subtle interval decline in the LVEF Discussed with patient's /Family: Noted no further cardiac evaluation per family Oral meds on hold: ASA, BB, lisinopril secondary to NPO Hold IV lopressor 5mg Q6H that was started to avoid BB withdrawal secondary to hypotension Palliative care consulted to identify goals of care Very poor prognosis Discussed with family:Agreeable to comfort measures only. 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 Blandon in clinic on day of admission Continue wound care ID following MITRAL VALVE VEGETATION Possible vegetation on TTE last admission H/O bioprosthetic aortic and mitral valve replacements Previously evaluated by cardiology: poor candidate for valve replacement ELEVATED TROPONIN In the setting of ESRD on HD H/O CAD EKG appears unchanged Continue Ranexa, ASA, BB ECHO findings as above No aggressive measures per family CHRONIC ANEMIA S/P 1 unit PRBC No active bleeding Monitor Hb Hb:9.4 today HYPOMAGNESEMIA Replace and monitor ATRIAL FIBRILLATION Rate is controlled Digoxin recently d/c due to bradycardia carvedilol on hold secondary to NPO Coumadin on hold secondary to elevated INR Lopressor on hold secondary to hypotension ESRD ON PD On PD every other evening Now on HD Nephrology on board CHRONIC SYSTOLIC CHF EF 35-40% Hold diuretics for now secondary to hypovolemia HYPERTENSION Currently hypotensive Hold HTN meds DM II Hypoglycemia Hold Lantus for poor PO intake Insulin sliding scale coverage Hypoglycemia protocol Nutrition consulted Dysphagia: High risk for aspiration Speech therapy/Rn Procedures consulted Not a candidate for TPN/PPN/Tube feeds DVT PX INR elevated, Coumadin on hold CODE STATUS DNR/DNI per my discussion with the patient's PROCEDURES: ECHO: * There is a bioprosthetic mitral valve. * Mild mitral valve prosthetic stenosis is present. * Mild mitral valve intraprosthetic valvualar regurgitation is present. * There is a small mobile echodensity attached to the bioprosthetic mitral valve leaflet that is unchanged compared to the prior study dated 08/23/16. * There is no vegetation noted on the aortic valve bioprosthesis wihtin the limitations of this imaging modality. * There is a moderate sized inferior and posterior wall motion abnormality with severe hypokinesis to akinesis of the base and mid segments. * Paradoxical septal motion is consistent with right ventricular volume overload. * Left ventricular systolic function is moderately reduced. * The LV Ejection Fraction = 35-40%. * Compared to the prior studies from 08/18/16 and 08/23/16 abnormal septal motion is now present, with subtle interval decline in the LVEF noted. Vital Signs: Date Time Temp Pulse Resp B/P Pulse Ox O2 Delivery O2 Flow Rate FiO2 09/19/16 08:04 36.8 80 23 69/42 93 Room Air 09/19/16 08:00 96 Room Air 09/19/16 07:12 67/45 09/19/16 06:40 68/38 09/19/16 04:00 36.2 96 19 72/45 98 Room Air 09/19/16 04:00 95 Room Air 09/18/16 23:59 95 Room Air 09/18/16 23:57 106/60 09/18/16 23:53 36.5 89 20 106/60 97 Room Air 09/18/16 20:00 95 Room Air 09/18/16 18:00 92 98/45 09/18/16 16:34 36.8 92 16 98/45 95 Room Air 09/18/16 16:05 Room Air Lab Results: Results Past 24 Hours Test 09/18/16 17:46 09/18/16 23:58 09/19/16 06:12 09/19/16 06:22 Range/Units Bedside Glucose 74 70 50 70-99 mg/dl Hemoglobin 9.4 14.0-18.0 g/dL Hematocrit 31.0 42-52 % Prothrombin Time > 100.0 9.0-12.0 SECONDS Prothromb Time International Ratio > 8.0 0.9-1.1 Sodium Level 142 136-145 mmol/L Potassium Level 5.4 3.5-5.1 mmol/L Chloride Level 102 98-107 mmol/L Carbon Dioxide Level 14 21-32 mmol/L Anion Gap 26.0 3-11 mmol/L Blood Urea Nitrogen 58 7-18 mg/dl Creatinine 9.00 0.60-1.40 mg/dl Est Creatinine Clear Calc Drug Dose 7.0 ml/min Estimated GFR () 5.9 Estimated GFR (Non- 5.1 BUN/Creatinine Ratio 6.4 10-20 Random Glucose 51 70-99 mg/dl Calcium Level 7.4 8.5-10.1 mg/dl Test 09/19/16 06:44 09/19/16 07:08 Range/Units Bedside Glucose 62 131 70-99 mg/dl
[2016-09-19] MEDS: RANOLAZINE 500 MG ER TAB PO SCH (09:00)
[2016-09-19] MEDS: CARVEDILOL 12.5 MG TAB PO SCH (09:00)
[2016-09-19] MEDS: PANTOprazole SOD 40 MG TAB PO SCH (09:00)
[2016-09-19] MEDS: CALCIUM CARBONATE 1250MG TAB PO SCH (09:00)
[2016-09-19] MEDS: MULTIVITAMIN TAB PO SCH (09:00)
[2016-09-19] MEDS: OMEGA-3 (PURIFIED FISH OIL) 1 GM CAP PO SCH (09:00)
[2016-09-19] MEDS: CHOLECALCIFEROL 1000 INTER.UNIT TAB PO SCH (09:00)
[2016-09-19] MEDS: ASPIRIN 81 MG CHEW PO SCH (09:00)
[2016-09-19] MEDS: CITALOPRAM 20 MG TAB PO SCH (09:00)
--- NOTE | 2016-09-19 09:35 | Palliative Care Consultation ---
Consultation Date of Consultation: Sep 19, 2016. Requesting Physician: Dr. Amaral Attending Physician: Dr. Amaral Reason for Consultation: Goals of care History of Present Illness This 76 year old male patient presented to the ED four days ago with c/o altered mental status, weakness, and poor PO intake reported by family. History obtained from record as patient is confused and there is no family at bedside presently. This patent has a significant past medical history listed below and several admissions lately for various issues such as ruptured Achilles tendon, non-healing right foot wound/osteomyelitis, UTIs, anemia, ESRD on PD at home. Patient does have dementia, he lives home with his Rosa. Apparently, she stated that patient has not been eating or drinking much, only voided once on day of admission. Patient is oliguric normally but usually voids 3-4x a day. Upon admission CT head negative for anything acute, CXR showed possible pneumonia and pulmonary vascular congestion, UA positive- culture growing Agata, and electrolyte abnormalities. He was admitted for AMS, hospital acquired pneumonia, UTI, and ESRD. Nephrology switched patient to hemodialysis for this admission. Last admission there was possible vegetation on bioprosthetic mitral valve, echo on this admission again shows the possible vegetation, new abnormal septal motion, decreased LVEF of 35-40%, and moderate sized inferior and posterior wall motion abnormality with severe hypokinesis to akinesis of base and mid segments. Family opted for no further cardiac workup as patient has already been deemed a poor candidate for any intervention such as mitral valve replacement. Patient is in poor physical condition with albumin 1.7, poor functional status with weakness. Now today, patient is incredibly hypotensive and hypoglycemic this morning. Family has been called by physician to come in today. Palliative care consulted to help with goals of care. I met patient in room 210. He is awake but drowsy and confused. His speech is difficult to understand, did state he was in "[facility]." He could not tell me the date or year. Denied pain at this time. Really could not participate in any further conversation, BP 60/30s while I was in room. I called and left a message with patient's , Rosa. No call back yet. [id number]: Met with family- patient's /POA Rosa Grant, patient's daughter, and two other friends/family members. Patient's and daughter both stated that the patient's wish for end-stage medical condition was to be made comfortable and no heroic measures-- they both feel he is to that point. Patient is already more lethargic than when I saw him this morning, now completely unresponsive with irregular respirations, BP 50/30s. Family already had a chance to speak with Dr. Amaral, who I then spoke with outside of room-- family requesting comfort measures only. Again, they told me they would like patient to be kept comfortable, stop IVF and abx. They are aware patient is likely down to hours to days left to live. Past Medical/Surgical History Medical History: ESRD on PD Afib CAD Prostate CA DM HLD Htn PAD PVD Surgical History: Aortic valve replacement Mitral valve replacement Cataract surgery CABG PD catheter Fistula Social History Smoking Status: Never Smoker History of Alcohol Use: No Drug Use: none Marital Status: Housing Status: lives with significant other Occupation Status: retired, disabled Review of Systems unable to obtain full ROS due to AMS Allergies Coded Allergies: No Known Allergies (Verified , 08/14/16) Medications Current Inpatient Medications Medications (Trade) Dose Ordered Sig/Andrei Route Start Time Stop Time Status Last Admin Dose Admin Acetaminophen (Tylenol Tab) 650 mg Q4H PRN PO 09/15/16 20:15 10/15/16 20:14 09/17/16 16:44 650 MG Ondansetron HCl (Zofran Inj) 4 mg Q6H PRN IV 09/15/16 20:15 10/15/16 20:14 Piperacillin Sod/ Tazobactam Sod (Consult) 1 ea UD PRN N/A 09/15/16 22:38 10/15/16 22:37 Calcium Acetate (Phoslo Cap) 667 mg TIDM PO 09/16/16 07:15 10/16/16 07:59 09/16/16 09:28 667 MG Carvedilol (Coreg Tab) 12.5 mg BID PO 09/16/16 09:00 10/16/16 08:59 09/16/16 09:45 12.5 MG Fish Oil (Kunia-3 (Purified Fish Oil) Cap) 1 gm DAILY PO 09/16/16 09:00 10/16/16 08:59 09/16/16 09:46 1 GM Lisinopril (Zestril Tab) 2.5 mg HS PO 09/16/16 21:00 10/16/16 20:59 Meclizine HCl (Antivert Tab) 25 mg TID PRN PO 09/15/16 21:30 10/15/16 21:29 Multivitamins (Multivitamin Tab) 1 tab DAILY PO 09/16/16 09:00 10/16/16 08:59 09/16/16 09:46 1 TAB Nitroglycerin (Nitrostat Tab) 0.4 mg UD PRN SL 09/15/16 21:30 10/15/16 21:29 Calcium Carbonate (oS-Wilian 500 TAB) 500 mg DAILY PO 09/16/16 09:00 10/16/16 08:59 09/16/16 09:46 500 MG Prochlorperazine Maleate (Compazine Tab) 10 mg Q6H PRN PO 09/15/16 21:30 10/15/16 21:29 Cholecalciferol (Vitamin D Tab) 1,000 inter.unit DAILY PO 09/16/16 09:00 10/16/16 08:59 09/16/16 09:45 1,000 INTER.UNIT Citalopram Hydrobromide (celeXA TAB) 20 mg QAM PO 09/16/16 09:00 10/16/16 08:59 09/16/16 09:46 20 MG Pantoprazole Sodium (Protonix Tab) 40 mg QAM PO 09/16/16 09:00 10/16/16 08:59 09/16/16 09:45 40 MG Ranolazine (Ranexa ER Tab) 500 mg BID PO 09/16/16 09:00 10/16/16 08:59 09/16/16 09:46 500 MG Glucose (Glucose 40% Gel) 15-30 GRAMS 15 GRAMS... UD PRN PO 09/15/16 21:45 10/15/16 21:44 Glucose (Glucose Chew Tab) 4-8 Tablets 4 Tabl... UD PRN PO 09/15/16 21:45 10/15/16 21:44 Dextrose (Dextrose 50% 50ML Syringe) 25-50ML OF 50% DW IV FOR... UD PRN IV 09/15/16 21:45 10/15/16 21:44 09/19/16 06:49 25 ML Glucagon (Glucagon Inj) 1 mg UD PRN SQ 09/15/16 21:45 10/15/16 21:44 Aspirin (Aspirin Chew) 81 mg DAILY PO 09/16/16 09:00 10/16/16 08:59 09/16/16 09:44 81 MG Heparin Sodium (Porcine) 5 ml 5 ml PRN PRN IV 09/16/16 00:15 10/16/16 00:14 Piperacillin Sod/ Tazobactam Sod 4.5 gm/Dextrose 120 ml @ 30 mls/hr Q12H IV 09/16/16 05:00 09/23/16 04:59 09/19/16 06:35 30 MLS/HR Sodium Chloride (Nss 1000ml) 1,000 ml @ 75 mls/hr [id number] IV 09/16/16 08:15 10/16/16 08:14 Future Hold 09/17/16 15:06 75 MLS/HR Insulin Aspart (novoLOG ASPART) SLIDING SCALE If C... Q6 SC 09/17/16 00:00 10/17/16 00:00 Fentanyl (Duragesic Patch) 12 mcg Q72H TD 09/17/16 18:00 10/01/16 17:59 09/17/16 18:23 12 MCG Miscellaneous (Fentanyl Patch Remove & Waste) 1 ea Q3D@1759 N/A 09/20/16 17:59 10/20/16 17:58 Miscellaneous Information 1 ea 1 ea QS N/A 09/18/16 00:00 10/18/16 00:00 09/19/16 08:00 1 EA Fluconazole/ Sodium Chloride/ Prmx (Diflucan IV/ Premixed Nss) 50 ml @ 100 mls/hr DAILY@2000 IV 09/17/16 20:00 09/27/16 19:59 09/18/16 21:41 100 MLS/HR Ipratropium [place] (Atrovent 0.02% 0.5MG/2.5ML Neb) 0.5 mg Q4H PRN INH 09/17/16 23:15 10/17/16 23:14 09/18/16 02:47 0.5 MG Levalbuterol (Xopenex 1.25MG/ 0.5ML Neb) 1.25 mg Q4H PRN INH 09/17/16 23:15 10/17/16 23:14 09/18/16 02:47 1.25 MG Metoprolol Tartrate (Lopressor Iv) 5 mg Q6 IV. 09/18/16 12:00 10/18/16 11:59 Future Hold 09/18/16 12:20 5 MG Miscellaneous Information (Pharmacy Tpn/ Ppn Consult Active) 1 ea UD PRN N/A 09/18/16 09:30 10/18/16 09:29 Future hold Physical Exam Date Time Temp Pulse Resp B/P Pulse Ox O2 Delivery O2 Flow Rate FiO2 09/19/16 08:04 36.8 80 23 69/42 93 Room Air 09/19/16 07:12 67/45 09/19/16 06:40 68/38 09/19/16 04:00 36.2 96 19 72/45 98 Room Air 09/19/16 04:00 95 Room Air 09/18/16 23:59 95 Room Air 09/18/16 23:57 106/60 09/18/16 23:53 36.5 89 20 106/60 97 Room Air 09/18/16 20:00 95 Room Air 09/18/16 18:00 92 98/45 09/18/16 16:34 36.8 92 16 98/45 95 Room Air 09/18/16 16:05 Room Air 09/18/16 12:20 107 103/48 09/18/16 12:11 36.8 107 18 103/48 95 09/18/16 12:05 Room Air 09/18/16 10:28 106 103/48 98 Room Air 09/18/16 10:07 36.5 107 17 112/59 99 Room Air General Appearance: no apparent distress, + cachetic, + pertinent finding ( chronically ill appearing) Neck: no JVD Respiratory: no respiratory distress, no accessory muscle use, + decreased breath sounds, + rhonchi (scattered), + pertinent finding (room air) Cardiovascular: regular rate, rhythm, + pertinent finding Abdomen: normal bowel sounds, non tender, soft Neurologic/Psychiatric: + disoriented, + pertinent finding (speech difficult to understand) Laboratory Results Last 24 Hours Test 09/18/16 12:04 09/18/16 17:46 09/18/16 23:58 09/19/16 06:12 Bedside Glucose 83 mg/dl 74 mg/dl 70 mg/dl Hemoglobin 9.4 g/dL Hematocrit 31.0 % Prothrombin Time > 100.0 SECONDS Prothromb Time International Ratio > 8.0 Sodium Level 142 mmol/L Potassium Level 5.4 mmol/L Chloride Level 102 mmol/L Carbon Dioxide Level 14 mmol/L Anion Gap 26.0 mmol/L Blood Urea Nitrogen 58 mg/dl Creatinine 9.00 mg/dl Est Creatinine Clear Calc Drug Dose 7.0 ml/min Estimated GFR () 5.9 Estimated GFR (Non- 5.1 BUN/Creatinine Ratio 6.4 Random Glucose 51 mg/dl Calcium Level 7.4 mg/dl Test 09/19/16 06:22 09/19/16 06:44 09/19/16 07:08 Bedside Glucose 50 mg/dl 62 mg/dl 131 mg/dl Assessment & Plan Palliative Performance Scale: 10 % Problem list: Altered mental status Weakness UTI Possible HCAP ?aspiration NPO- dysphagia and risk of aspiration Hypoalbuminemia- Poor nutritional status Hx aortic and mitral valve replacements- now with echodensity on bioprosthetic mitral valve leaflet, new abnormal septal motion and decline in LVEF- now 35-40% . Calcaneus osteomyelitis/non-healing wound of right heal. S/p toe amputations Chronic anemia Afib ESRD on PD, now on HD Goals of care (Z51.5) Palliative care plan: discussed with patient's , daughter, and Dr. Amaral. -Comfort measures only. This is based on patient's family and his own wishes as stated in his living will. -DC IVF, abx, all PO medications, and albumin. -Order morphine 2mg IV Q1h PRN pain or SOB. No signs of discomfort at this time , patient is somnolent and appears comfortable. -Family is waiting for patient's son to get here, they are requesting patient not be transferred until he is able to come. Thank you kindly for this consult. I will follow as needed.
[2016-09-19] MEDS ORDERED: MoRPHine SULFATE 2 MG/ML CARP IV PRN (10:45)
--- NOTE | 2016-09-19 14:45 | Infectious Disease Progress Nt ---
Progress Note Date of Service Sep 19, 2016. Subjective Pt evaluation today including: conversation w/ patient, physical exam, chart review, lab review, review of studies, review of inpatient medication list Patient is doing very poorly. Urine culture grew Agata albicans. Blood cultures showed no growth. Reviewed palliative care notes- patient's family choosing to stop abx therapy and start strictly comfort care. All Other Systems: Reviewed and Negative Medications Current Inpatient Medications Medications (Trade) Dose Ordered Sig/Andrei Route Start Time Stop Time Status Last Admin Dose Admin Ondansetron HCl (Zofran Inj) 4 mg Q6H PRN IV 09/15/16 20:15 10/15/16 20:14 Nitroglycerin (Nitrostat Tab) 0.4 mg UD PRN SL 09/15/16 21:30 10/15/16 21:29 Glucose (Glucose 40% Gel) 15-30 GRAMS 15 GRAMS... UD PRN PO 09/15/16 21:45 10/15/16 21:44 Glucose (Glucose Chew Tab) 4-8 Tablets 4 Tabl... UD PRN PO 09/15/16 21:45 10/15/16 21:44 Dextrose (Dextrose 50% 50ML Syringe) 25-50ML OF 50% DW IV FOR... UD PRN IV 09/15/16 21:45 10/15/16 21:44 09/19/16 06:49 25 ML Glucagon (Glucagon Inj) 1 mg UD PRN SQ 09/15/16 21:45 10/15/16 21:44 Heparin Sodium (Porcine) (Heparin 100 Unit/ml 5ml Flush) 5 ml PRN PRN IV 09/16/16 00:15 10/16/16 00:14 Insulin Aspart (novoLOG ASPART) SLIDING SCALE If C... Q6 SC 09/17/16 00:00 10/17/16 00:00 Fentanyl (Duragesic Patch) 12 mcg Q72H TD 09/17/16 18:00 10/01/16 17:59 09/17/16 18:23 12 MCG Miscellaneous (Fentanyl Patch Remove & Waste) 1 ea Q3D@1759 N/A 09/20/16 17:59 10/20/16 17:58 Miscellaneous Information (Check Fentanyl Patch Placement) 1 ea QS N/A 09/18/16 00:00 10/18/16 00:00 09/19/16 08:00 1 EA Ipratropium [place] (Atrovent 0.02% 0.5MG/2.5ML Neb) 0.5 mg Q4H PRN INH 09/17/16 23:15 10/17/16 23:14 09/18/16 02:47 0.5 MG Levalbuterol (Xopenex 1.25MG/ 0.5ML Neb) 1.25 mg Q4H PRN INH 09/17/16 23:15 10/17/16 23:14 09/18/16 02:47 1.25 MG Metoprolol Tartrate (Lopressor Iv) 5 mg Q6 IV. 09/18/16 12:00 10/18/16 11:59 Future Hold 09/18/16 12:20 5 MG Morphine Sulfate (MoRPHine SULFATE INJ) 2 mg Q1H PRN IV 09/19/16 10:45 10/03/16 10:44 Objective Vital Signs Date Time Temp Pulse Resp B/P Pulse Ox O2 Delivery O2 Flow Rate FiO2 09/19/16 08:04 36.8 80 23 69/42 93 Room Air 09/19/16 08:00 96 Room Air 09/19/16 07:12 67/45 09/19/16 06:40 68/38 09/19/16 04:00 36.2 96 19 72/45 98 Room Air 09/19/16 04:00 95 Room Air 09/18/16 23:59 95 Room Air 09/18/16 23:57 106/60 09/18/16 23:53 36.5 89 20 106/60 97 Room Air 09/18/16 20:00 95 Room Air 09/18/16 18:00 92 98/45 09/18/16 16:34 36.8 92 16 98/45 95 Room Air 09/18/16 16:05 Room Air Physical Exam General Appearance: + thin, + pertinent finding (obtunded) Laboratory Results Item Value Date Time Urine Culture - Final Complete 09/16/16 1020 Urine , Clean Catch Agata Albicans MRSA DNA Surveillance Screen - Final Complete 09/15/16 2300 Nasal Specimen Negative for MRSA by DNA Probe Blood Culture - Preliminary Resulted 09/15/16 1757 Blood NO GROWTH TO DATE. Blood Culture - Preliminary Resulted 09/15/16 1724 Blood NO GROWTH TO DATE. Last 24 Hours Test 09/18/16 17:46 09/18/16 23:58 09/19/16 06:12 09/19/16 06:22 Bedside Glucose 74 mg/dl 70 mg/dl 50 mg/dl Hemoglobin 9.4 g/dL Hematocrit 31.0 % Prothrombin Time > 100.0 SECONDS Prothromb Time International Ratio > 8.0 Sodium Level 142 mmol/L Potassium Level 5.4 mmol/L Chloride Level 102 mmol/L Carbon Dioxide Level 14 mmol/L Anion Gap 26.0 mmol/L Blood Urea Nitrogen 58 mg/dl Creatinine 9.00 mg/dl Est Creatinine Clear Calc Drug Dose 7.0 ml/min Estimated GFR () 5.9 Estimated GFR (Non- 5.1 BUN/Creatinine Ratio 6.4 Random Glucose 51 mg/dl Calcium Level 7.4 mg/dl Test 09/19/16 06:44 09/19/16 07:08 Bedside Glucose 62 mg/dl 131 mg/dl Assessment and Plan Patient with ESRD on HD, acute AMS, and possible HCAP versus UTI versus acute on chronic CHF with recent history of MSSA bacteremia, endocarditis, and right calcaneal osteomyelitis. Patient going on palliative care. Abx stopped. No further ID recommendations. PROVIDER ADDENDUM: Patient reviewed with Ms. Ayala. Agree with above assessment.
--- NOTE | 2016-09-19 15:09 | Discharge Summary ---
Discharge Summary Date of Service Sep 19, 2016. Discharge Summary Admission Date: Sep 15, 2016 at 19:20 Discharge Disposition: Principal Diagnosis: HCAP, UTI, ESRD, Metabolic encephalopathy, CHF Procedures: Hemodialysis ECHO: * There is a bioprosthetic mitral valve. * Mild mitral valve prosthetic stenosis is present. * Mild mitral valve intraprosthetic valvualar regurgitation is present. * There is a small mobile echodensity attached to the bioprosthetic mitral valve leaflet that is unchanged compared to the prior study dated 08/23/16. * There is no vegetation noted on the aortic valve bioprosthesis wihtin the limitations of this imaging modality. * There is a moderate sized inferior and posterior wall motion abnormality with severe hypokinesis to akinesis of the base and mid segments. * Paradoxical septal motion is consistent with right ventricular volume overload. * Left ventricular systolic function is moderately reduced. * The LV Ejection Fraction = 35-40%. * Compared to the prior studies from 08/18/16 and 08/23/16 abnormal septal motion is now present, with subtle interval decline in the LVEF noted. Consultations: Palliative care, Nephrology, ID Admission Information HPI (per Admitting provider): This is a 76 year old male with PMH of ESRD on PD, CAD s/p CABG, Afib on Coumadin, chronic systolic CHF EF 35-40%, s/p bioprosthetic AVR, bioprosthetic MVR, anemia, PAD, DM type 2, and other problems listed below who presents to the ED with altered mental status. Hx obtained from records and family due to patient's mental status. Patient was recently hospitalized at [facility] August 31- Aug 15 for calcaneus osteomyelitis/ non healing right heel ulcer s/p debridement 08/29/16, possible mitral valve vegetation, hypokalemia, bradycardia , anemia. He was d/c to rehab then returned home with . He is on IV Rocephin via port and PO amoxicillin. Family states he was at baseline on Monday morning (3 days ago) but that night started developed confusion which progressively worsened. Family describes confusion as mumbling and and not making sense. At baseline he is oriented to person and place. Currently only oriented to person (recognizes family). Family states pt had similar episodes of confusion in the past related to infection and anemia. Family reports associated generalized weakness and poor PO intake. states urine output is decreased- usually voids 30-60 cc 3-4x per day but today only voided 30 cc x 1. Patient also has productive cough with clear sputum which he had for 1 month but worsened over past 2 weeks. No em aspiration episodes while eating. Had 1 episode posttussive vomiting of mucous yesterday. Chronic POWERS is worse today. Patient was seen by ortho (Dr. Blandon) and ID (Valerie Ayala PA-C) today. At ortho appt sutures were removed from right heel. Wound was thought to be improving. There is no drainage or pain. Family denies fever, chills, rhinorrhea , complaints of chest pain, abdominal pain, diarrhea, edema, abnormal bleeding. Patient is on PD every other evening. Last PD yesterday evening. On last admission digoxin was d/c for bradycardia but was giving it at home as she was unaware. She states HR has run 100s at home. Physical Exam (per Admitting): General Appearance: WD/WN, + pertinent finding (alert pleasantly confused elderly male, follows most commands with repeated prompting) Head: normocephalic, atraumatic Eyes: normal inspection, PERRL, sclerae normal, + pertinent finding ( difficult to have patient cooperate with EOM exam) ENT: hearing grossly normal, pharynx normal, + pertinent finding (very dry oral mucosa) Neck: supple, no JVD, trachea midline Respiratory/Chest: no respiratory distress, no accessory muscle use, + rhonchi (scattered rhonchi), + pertinent finding (port present ) Cardiovascular: regular rate, rhythm, + systolic murmur Abdomen/GI: normal bowel sounds, non tender, soft, + pertinent finding (PD catheter in place) Extremities/Musculoskelatal: no pedal edema, + pertinent finding (bilateral great toe amputations. RLE in boot with dressed ulcerations on heel and toes) Neurologic/Psych: alert, normal mood/affect, + pertinent finding ( pleasantly confused, oriented x 1 (recognizes family), follows most commands with repeated prompting, no dysarthria, no facial droop, no focal motor deficit) Skin: warm/dry, + pallor, + pertinent finding (wonds) Hospital Course ALTERED MENTAL STATUS DD: metabolic encephalopathy: Likely UTI, secondary to Uremia, Aspiration HCAP , Dehydration CT head: No acute findings Ammonia level WNL Continue IV antibiotics IV fluids/Albumin per Nephrology Blood cultures: No growth to date Urine culture:Agata Albicans: Continue IV fluconazole Dialysis per Nephrology(Previously on PD now HD) Appreciate ID/Nephrology input Family prefers no aggressive measures Speech:High risk for aspiration ECHO: complete results as below Intraprosthetic valvular regurgitation, small mobile echodensity attached to the bioprosthetic mitral valve leaflet (Unchanged from previous) New Abnormal septal motion, with subtle interval decline in the LVEF Discussed with patient's /Family: Noted no further cardiac evaluation per family Oral meds on hold: ASA, BB, lisinopril secondary to NPO Hold IV lopressor 5mg Q6H that was started to avoid BB withdrawal secondary to hypotension Palliative care consulted to identify goals of care Very poor prognosis Discussed with family:Agreeable to comfort measures only. Patient decreased after discontinuing IV fluids and making him comfort measures Possible HCAP UTI S/P IV vancomycin, discontinued:MRSA screen is negative MRSA screen: Negative Continue IV Zosyn Urine culture: Agata Albicans Continue IV fluconazole Appreciate ID input: Discussed with on 09/17/16 SUPRA THERAPEUTIC INR: INR:8.0 No active bleeding Hold Coumadin Monitor INR 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 Blandon in clinic on day of admission Continue wound care ID following MITRAL VALVE VEGETATION Possible vegetation on TTE last admission H/O bioprosthetic aortic and mitral valve replacements Previously evaluated by cardiology: poor candidate for valve replacement ELEVATED TROPONIN In the setting of ESRD on HD H/O CAD EKG appears unchanged Continue Ranexa, ASA, BB ECHO findings as above No aggressive measures per family CHRONIC ANEMIA S/P 1 unit PRBC No active bleeding Monitor Hb Hb:9.4 today HYPOMAGNESEMIA Replace and monitor ATRIAL FIBRILLATION Rate is controlled Digoxin recently d/c due to bradycardia carvedilol on hold secondary to NPO Coumadin on hold secondary to elevated INR Lopressor on hold secondary to hypotension ESRD ON PD On PD every other evening Now on HD Nephrology on board CHRONIC SYSTOLIC CHF EF 35-40% Hold diuretics for now secondary to hypovolemia HYPERTENSION Currently hypotensive Hold HTN meds DM II Hypoglycemia Hold Lantus for poor PO intake Insulin sliding scale coverage Hypoglycemia protocol Nutrition consulted Dysphagia: High risk for aspiration Speech therapy/Curve Saw Operator consulted Not a candidate for TPN/PPN/Tube feeds DVT PX INR elevated, Coumadin on hold CODE STATUS DNR/DNI per my discussion with the patient's PROCEDURES: ECHO: * There is a bioprosthetic mitral valve. * Mild mitral valve prosthetic stenosis is present. * Mild mitral valve intraprosthetic valvualar regurgitation is present. * There is a small mobile echodensity attached to the bioprosthetic mitral valve leaflet that is unchanged compared to the prior study dated 08/23/16. * There is no vegetation noted on the aortic valve bioprosthesis wihtin the limitations of this imaging modality. * There is a moderate sized inferior and posterior wall motion abnormality with severe hypokinesis to akinesis of the base and mid segments. * Paradoxical septal motion is consistent with right ventricular volume overload. * Left ventricular systolic function is moderately reduced. * The LV Ejection Fraction = 35-40%. * Compared to the prior studies from 08/18/16 and 08/23/16 abnormal septal motion is now present, with subtle interval decline in the LVEF noted. Total time spent on discharge = This includes examination of the patient, discharge planning, medication reconciliation, and communication with other providers. Discharge Instructions
[2016-09-20] MEDS ORDERED: FENTANYL PATCH REMOVE & WASTE SCH (17:59)
== END 2016-09-19 16:03 | disposition expired | DRG 177 ==
LOC: ENRESERVTM → ENRESERVDT → C.EDB 16:31 → C.MSICU 19:20 → C.2E 09-16 18:00
PROVIDERS: ADMIT Internal Medicine; ATTEND Internal Medicine
DX: J69.0 Pneumonitis due to inhalation of food and vomit (principal); G93.41 Metabolic encephalopathy; I33.0 Acute and subacute infective endocarditis; N18.6 End stage renal disease; B37.49 Other urogenital candidiasis; M86.671 Other chronic osteomyelitis, right ankle and foot; I50.22 Chronic systolic (congestive) heart failure; I13.2 Hypertensive heart and chronic kidney disease with heart failure and with stage 5 chronic kidney disease, or end stage renal disease; R79.1 Abnormal coagulation profile; Z99.2 Dependence on renal dialysis; D64.9 Anemia, unspecified; E11.69 Type 2 diabetes mellitus with other specified complication; E83.42 Hypomagnesemia; I48.91 Unspecified atrial fibrillation; E11.649 Type 2 diabetes mellitus with hypoglycemia without coma; R13.10 Dysphagia, unspecified; Z83.3 Family history of diabetes mellitus; Z82.49 Family history of ischemic heart disease and other diseases of the circulatory system; Z80.1 Family history of malignant neoplasm of trachea, bronchus and lung; Z79.82 Long term (current) use of aspirin; Z51.5 Encounter for palliative care; E86.0 Dehydration; I25.10 Atherosclerotic heart disease of native coronary artery without angina pectoris; Z95.1 Presence of aortocoronary bypass graft; Z79.01 Long term (current) use of anticoagulants; Z95.2 Presence of prosthetic heart valve; N25.0 Renal osteodystrophy; Z86.19 Personal history of other infectious and parasitic diseases; Z66 Do not resuscitate; D63.1 Anemia in chronic kidney disease; Z89.412 Acquired absence of left great toe; Z89.411 Acquired absence of right great toe